=== PATIENT | male | born 1935 | race Caucasian/White ===

== ENCOUNTER 2016-08-30 16:46 | Observation (INO) | payer BC, MEDICARE ==
--- NOTE | 2016-08-30 18:24 | XR ---
EXAMINATION TYPE: XR Hip Complete LT DATE OF EXAM: 08/30/2016 COMPARISON: 11/05/2009 HISTORY: Fall one week ago and hip pain TECHNIQUE: 2 views FINDINGS: There is a left hip prosthesis. Components appear in anatomic position. There is extensive soft tissue ossification at the greater trochanter. There is vascular calcification. I see no fractur e. IMPRESSION: No fracture seen. Hip prosthesis is unchanged in position compared to old exam. There is increased soft tissue ossification.
[2016-08-30] MEDS ORDERED: ACETAMINOPHEN TAB 325 MG TAB PO PRN (18:41)
[2016-08-30] MEDS ORDERED: NALOXONE 0.4 MG/ML 1 ML VIAL IV PRN (18:41)
--- NOTE | 2016-08-30 18:41 | ED ---
General Adult HPI - General Chief complaint: Extremity Injury, Lower Stated complaint: No Movement in Left Leg Time Seen by Provider: 08/30/16 17:03 Source: patient Mode of arrival: wheelchair Limitations: no limitations - History of Present Illness Initial comments: This is an 81-year-old male with a history of left hip arthroplasty presents emergency department for left hip pain that has been progressively worsening over the last 3 weeks and worsening over the last 2 days. He states he has gotten to the point now where he cannot walk. He called his primary doctor who advised that he come to the emergency department because she is concerned that he will fall at home. Patient denies any injury. No falls. No fevers or chills. No weakness in the leg. He states it is just more painful. - Related Data Home Medications Medication Instructions Recorded Confirmed Albuterol Inhaler [Ventolin Hfa 2 puff INHALATION RT-BID PRN 08/30/16 08/30/16 Inhaler] Allopurinol [Zyloprim] 300 mg PO HS 08/30/16 08/30/16 Atenolol 25 mg PO BID 08/30/16 08/30/16 Atorvastatin [Lipitor] 40 mg PO HS 08/30/16 08/30/16 Budesonide/Formoterol Fumarate 2 puff INHALATION RT-BID 08/30/16 08/30/16 [Symbicort 160-4.5 Mcg Inhaler] Dipyridamole-Aspirin 200-25 mg 1 tab PO BID 08/30/16 08/30/16 [Aggrenox] Tamsulosin HCl [Flomax] 0.8 mg PO HS 08/30/16 08/30/16 amLODIPine [Norvasc] 5 mg PO DAILY 08/30/16 08/30/16 Allergies Allergy/AdvReac Type Severity Reaction Status Date / Time cephalexin [From Keflex] Allergy Rash/Hives Verified 08/30/16 17:19 ciprofloxacin [From Cipro] Allergy Rash/Hives Verified 08/30/16 17:19 Review of Systems ROS Statement: Those systems with pertinent positive or pertinent negative responses have been documented in the HPI. ROS Other: All systems not noted in ROS Statement are negative. Past Medical History Past Medical History: Chest Pain / Angina, Heart Failure, CVA/TIA, Hyperlipidemia, Hypertension, Myocardial Infarction ([place]), Osteoarthritis ([place]) Additional Past Medical History / Comment(s): kidney stones History of Any Multi-Drug Resistant Organisms: None Reported Past Surgical History: Coronary Bypass/CABG, Heart Catheterization With Stent, Tonsillectomy Additional Past Surgical History / Comment(s): left hip replacement, inguinal hernia repair Past Psychological History: No Psychological Hx Reported Smoking Status: Former smoker Past Alcohol Use History: Occasional Past Drug Use History: None Reported General Exam - General Exam Comments Initial Comments: Constitutional: Awake alert Appears comfortable Head: Normocephalic atraumatic Eyes: no conjunctival injection No scleral icterus EOMI Neck: No JVD Supple Heart: Regular rate rhythm normal S1-S2 no murmurs Lungs: Clear to auscultation bilaterally No wheezing No rales Abdomen: Soft nondistended nontender Extremities: Non edematous DP pulses intact Radial pulses intact, tenderness to palpation along the left inguinal region and in the groin. The patient has pain with any flexion of the left hip however appears strong with any other movements of the extremity. Neuro: A&Ox3 cranial nerves II through XII are grossly intact, 5 out of 5 strength in upper and lower extremities bilaterally, patient does have decreased ability to flex the left hip due to pain. Psych: Appropriate mood and affect Limitations: no limitations Course Vital Signs 08/30/16 17:01 Temperature 97.1 F L Pulse Rate 81 Respiratory 18 Rate Blood Pressure 138/70 O2 Sat by Pulse 96 Oximetry Medical Decision Making - Medical Decision Making This is an 81-year-old male presents emergency department for left hip pain. He was evaluated and found to have significant pain with hip flexion. He has not been able to ambulate and there is concern that he will fall at home. Dr. Foreman sent him in for admission. Dr. Briseno was RT aware of the patient and accepts him for observation. He would like Dr. Grant to see the patient. All questions were answered. Disposition Clinical Impression: Inability to ambulate due to hip Disposition: ADMITTED IP TO THIS HOSP Condition: Stable Referrals: Alyse Foreman MD [Primary Care Provider] - 1-2 days
[2016-08-30 18:46] LABS: Basophils % (A) 0 %; CH 33.9; CHCM 32.8; Eosinophils % (A) 1 %; HCT 46.5 % (39.0-53.0); HDW 2.49; HGB 14.9 gm/dL (13.0-17.5); Luc # (Auto) 0.04; Luc % (Auto) 1; Lymphocytes # (A) 0.8 k/uL (1.0-4.8); Lymphocytes % (A) 16 %; MCH 33.4 pg (25.0-35.0); MCHC 32.1 g/dL (31.0-37.0); Macrocytosis Slight; Mean Platelet Volume 8.2; Monocytes # (A) 0.2 k/uL (0-1.0); Monocytes % (A) 4 %; Neutrophils # (A) 4.2 k/uL (1.3-7.7); Neutrophils % (A) 79 %; RBC 4.47 m/uL (4.30-5.90); RDW 14.4 % (11.5-15.5); WBC 5.4 k/uL (3.8-10.6); WBC (Perox) 5.14
[2016-08-30 19:08] LABS: ALT 632 U/L (21-72); AST 453 U/L (17-59); Alkaline Phosphatase 198 U/L (38-126); Anion Gap 8 mmol/L; Blood Urea Nitrogen 19 mg/dL (9-20); Calcium 9.4 mg/dL (8.4-10.2); Carbon Dioxide 26 mmol/L (22-30); Chloride 106 mmol/L (98-107); Glucose 107 mg/dL (74-99); Non-African American GFR(MDRD) >60 (>60 ml/min/1.73 sqM); Potassium 4.3 mmol/L (3.5-5.1); Sodium 140 mmol/L (137-145); Total Bilirubin 1.9 mg/dL (0.2-1.3); Total Protein 6.9 g/dL (6.3-8.2)
[2016-08-30] MEDS ORDERED: MORPHINE SULFATE 4 MG/ML SYRINGE IVP STA (19:28)
--- NOTE | 2016-08-30 20:39 | US ---
EXAMINATION TYPE: US abdomen limited DATE OF EXAM: 08/30/2016 COMPARISON: Prior in PACS CLINICAL HISTORY: Elevated LFT. EXAM MEASUREMENTS: Liver Length: 17.3 cm Gallbladder Wall: 0.27 cm CBD: 0.4 cm Right Kidney: 11.6 x 5.5 x 4.1 cm Pancreas: Obscured by bowel gas Liver: Measuring upper limits of normal, heterogeneous Gallbladder: Multiple echogenic foci visualized, probable stones vs sludge Evidence for sonographic Kruger's sign: No CBD: wnl as visualized, distal portion obscured by bowel gas Right Kidney: Stone visualized in lower pole measuring 0.9 cm IMPRESSION: There are multiple gallstones. No dilated ducts.
[2016-08-30] MEDS: SYMBICORT 160-4.5 MCG INHALER INHALATION SCH (21:43)
[2016-08-30] MEDS ORDERED: ALBUTEROL NEBULIZED 2.5 MG/3 ML INHALATION PRN (21:46)
[2016-08-30] MEDS ORDERED: ALPRAZolam 0.25 MG TAB PO PRN (21:47)
[2016-08-30] MEDS ORDERED: HYDROmorphone 1 MG/ML 1 ML SYRINGE IVP PRN (21:47)
[2016-08-30 22:06] LABS: INR 1.2 (<1.1); Prothrombin Time 11.9 sec (9.0-12.0)
[2016-08-30 22:08] LABS: C Reactive Protein 63.9 mg/L (<10.0); Uric Acid 5.5 mg/dL (3.5-8.5)
[2016-08-30] MEDS: TAMSULOSIN 0.4 MG CAP.ER.24H PO SCH (23:22)
[2016-08-30] MEDS: ALLOPURINOL 300 MG TAB PO SCH (23:22)
[2016-08-30] MEDS: MELATONIN 3 MG TABLET PO SCH (23:22)
[2016-08-30] MEDS: ATORVASTATIN 40 MG TAB PO SCH (23:22)
[2016-08-30] MEDS: ATENOLOL 25 MG TAB PO SCH (23:22)
[2016-08-31] MEDS: HYDROcodone/APAP 5-325MG 1 EACH TAB PO PRN ×4 (05:20→23:18)
[2016-08-31 07:15] LABS: Basophils % (A) 1 %; CH 33.8; CHCM 32.6; Eosinophils # (A) 0.1 k/uL (0-0.7); Eosinophils % (A) 2 %; HCT 42.3 % (39.0-53.0); HDW 2.52; HGB 13.8 gm/dL (13.0-17.5); Luc # (Auto) 0.07; Luc % (Auto) 2; Lymphocytes # (A) 0.6 k/uL (1.0-4.8); Lymphocytes % (A) 19 %; MCHC 32.6 g/dL (31.0-37.0); MCV 104.3 fL (80.0-100.0); Macrocytosis Moderate; Mean Platelet Volume 8.2; Monocytes # (A) 0.2 k/uL (0-1.0); Monocytes % (A) 5 %; Neutrophils # (A) 2.5 k/uL (1.3-7.7); Neutrophils % (A) 72 %; RBC 4.06 m/uL (4.30-5.90); RDW 14.5 % (11.5-15.5); WBC 3.4 k/uL (3.8-10.6)
[2016-08-31 07:29] LABS: ALT 421 U/L (21-72); AST 197 U/L (17-59); Alkaline Phosphatase 173 U/L (38-126); Anion Gap 7 mmol/L; Blood Urea Nitrogen 17 mg/dL (9-20); Calcium 9.1 mg/dL (8.4-10.2); Carbon Dioxide 25 mmol/L (22-30); Chloride 107 mmol/L (98-107); Glucose 131 mg/dL (74-99); Non-African American GFR(MDRD) >60 (>60 ml/min/1.73 sqM); Sodium 139 mmol/L (137-145); Total Bilirubin 1.2 mg/dL (0.2-1.3)
--- NOTE | 2016-08-31 07:47 | HP ---
DATE OF ADMISSION: CHIEF COMPLAINT: Left hip pain. HISTORY OF PRESENT ILLNESS: This 81-year-old gentleman with a past medical history of CHF, history of CVA, TIA, hypertension, hyperlipidemia, myocardial infarction , DJD, history of prostate disorder, history of gout being followed by Dr. Foreman in the outpatient setting had hip replacement on the left side in [address] Grant. The patient is complaining of some pain for the last 3 weeks, which is felt on walking and moving the hip. Because of lack of improvement, the patient came to [facility] emergency room and was admitted for further evaluation and treatment. There is no history of any fever, rigors or chills. There is no headache, loss of consciousness or seizures. PAST MEDICAL HISTORY: History of CHF, history of CVA, TIA, hypertension, hyperlipidemia, myocardial infarction, prostate disorder. Medications prior to admission include the home medications are: 1. Flomax 0.8 q.h.s. 2. Lipitor 40 mg p.o. q.h.s. 3. Zyloprim 300 mg q.h.s. 4. Ventolin HFA 2 puffs b.i.d. p.r.n. 5. Norvasc 5 mg daily. 6. Symbicort 160/4.5 two puffs b.i.d. 7. Atenolol 25 mg b.i.d. 8. Aggrenox 1 tablet p.o. b.i.d. Allergies are CEPHALEXIN, CIPROFLOXACIN. FAMILY HISTORY: History of myocardial infarction in the family. SOCIAL HISTORY: History of occasional alcohol and previous history of smoking. REVIEW OF SYSTEMS: ENT: Diminishing hearing and diminished vision. CARDIOVASCULAR: No angina. RESPIRATORY: No cough or hemoptysis. GI: No nausea. : No dysuria. NERVOUS SYSTEM: No numbness or weakness. ALLERGY/IMMUNOLOGY: No history of asthma or hayfever. MUSCULOSKELETAL: As mentioned earlier. HEMATOLOGY/ONCOLOGY: No history of anemia. ENDOCRINE: No history of diabetes or hypothyroidism. CONSTITUTIONAL: As mentioned earlier. DERMATOLOGY: Negative. RHEUMATOLOGY: Negative. PSYCHIATRY: As mentioned earlier. PHYSICAL EXAMINATION: The patient is alert and oriented x3. Pulse is 96, blood pressure 159/91, respirations 20, temperature 98.2, pulse ox 92% on room air. HEENT: Conjunctivae normal. Oral mucosa moist. NECK: No jugular venous distention. No carotid bruit. No lymph node enlargement. CARDIOVASCULAR: S1 and S2, muffled. No S3, no S4. RESPIRATORY: Breath sounds diminished at the bases. A few scattered rhonchi, no crackles. ABDOMEN: Soft, nontender. No mass palpable. LEGS: No edema, no swelling. Movements of the left hip is painful. No swelling noted. Pulses felt normally. NERVOUS SYSTEM: Higher function as mentioned earlier. Moves all 4 limbs. No focal motor or sensory deficits. LYMPHATICS: No lymphadenopathy of neck, axillae or groin. EXAMINATION OF THE JOINTS: Diffuse arthritis and tophi formation also present. SKIN: As mentioned earlier. Lab investigations at this time shows WBC 5.4, MCV 104, platelets 129. Glucose 107. Total bilirubin is 1.9. AST is 453, ALT 632, alk phos 198. ASSESSMENT: 1. Severe left leg and hip pain as well as failure of outpatient treatment and gait dysfunction for evaluation. 2. Acute hepatitis of undetermined origin. 3. Increased bilirubin. 4. Increased AST, ALT. 5. Mild thrombocytopenia. 6. History of congestive heart failure, ejection fraction unknown. 7. History of cerebrovascular accident, transient ischemic attack. 8. Hypertension. 9. Hyperlipidemia. 10. History of myocardial infarction . 11. History of degenerative joint disease. 12. History of kidney stones. 13. History of gout. 14. History of coronary artery disease, coronary artery bypass grafting and stent. 15. History left hip replacement. 16. Remote history of nicotine dependence. 17. FULL CODE. RECOMMENDATIONS AND DISCUSSION: This 81-year-old gentleman who presented with the multiple complex medical issues, we will monitor the patient closely. Will initiate home medications and symptomatic treatment with pain and orthopedic evaluation. See orders for further details. Inflammatory markers. Prognosis guarded because of multiple complex medical issues. Further recommendations to follow. See orders for further details. Discussed with the patient as well as Dr. Foreman. Further recommendations to follow.
[2016-08-31] MEDS: amLODIPine 5 MG TAB PO SCH (07:52)
[2016-08-31] MEDS: HEPARIN SODIUM,PORCINE 5,000 UNIT/ML 1 ML VIAL SQ SCH ×2 (07:52→20:41)
[2016-08-31] MEDS: PANTOPRAZOLE 40 MG TABLET PO SCH (07:52)
[2016-08-31] MEDS: ATENOLOL 25 MG TAB PO SCH ×2 (07:52→20:41)
[2016-08-31] MEDS: DIPYRIDAMOLE-ASPIRIN 200-25 MG 1 EACH CPMP.12HR PO SCH ×2 (07:52→20:40)
[2016-08-31] MEDS: SYMBICORT 160-4.5 MCG INHALER INHALATION SCH ×2 (09:11→20:23)
--- NOTE | 2016-08-31 11:42 | P.CNOR ---
History of Present Illness - HPI Consult date: 08/31/16 History of present illness: This is a well-appearing 81-year-old male with a history of total left hip arthroplasty in 2012. Patient reports increased pain to the left hip over the last 2 months. Patient states his pain is mostly to the left groin area. Patient states he has fallen several times over the last month. Patient states he falls because his legs give out on him. Patient denies any dizziness or weakness. Patient states he uses a walker to ambulate at home. Patient states the pain has been increasingly worse over the last week but patient denies any falls over the last week. Patient denies any back pain, numbness/tingling/ weakness, or radicular pain to bilateral lower extremities. Patient denies any pain in the right hip. Patient denies any fever/chills, nausea/vomiting/ diarrhea. Review of Systems See HPI. Past Medical History Past Medical History: Chest Pain / Angina, Heart Failure, CVA/TIA, Hyperlipidemia, Hypertension, Myocardial Infarction ([place]), Osteoarthritis (OA), Prostate Disorder Additional Past Medical History / Comment(s): kidney stones, gout,tia 2005, mi 1987 and 1988, IN PAST TOOK MEDS FOR DM-NO LONGER TAKES MEDS OR CHECKS BS. Last Myocardial Infarction Date:: 1988 History of Any Multi-Drug Resistant Organisms: None Reported Past Surgical History: Coronary Bypass/CABG, Heart Catheterization With Stent, Tonsillectomy Additional Past Surgical History / Comment(s): left hip replacement 2009,lt inguinal hernia repair, cystocopy,turp,quad cabg 1995 had heart cath w/ stent after cabg,aaa reapir 2000, dianne cataracts, lt hand sx (revison of amp lt thumb) , kidney stones removed, vasectomy. Past Anesthesia/Blood Transfusion Reactions: No Reported Reaction Date of Last Stent Placement:: unk Past Psychological History: No Psychological Hx Reported Additional Psychological History / Comment(s): pt lives with his jose in a single story home that has 1 step to enter. pt sues a 4 wheeled seated walker to get around. no ptes in home. no home care services recieved. 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 Smoking Status: Former smoker Past Alcohol Use History: Occasional Additional Past Alcohol Use History / Comment(s): smoked for 40 years 2ppd, quit 1988 Past Drug Use History: None Reported - Past Family History Mother Family Medical History: Myocardial Infarction ([place]) Father Family Medical History: Myocardial Infarction ([place]) Medications and Allergies Home Medications Medication Instructions Recorded Confirmed Type Albuterol Inhaler [Ventolin Hfa 2 puff INHALATION RT-BID PRN 08/30/16 08/30/16 History Inhaler] Allopurinol [Zyloprim] 300 mg PO HS 08/30/16 08/30/16 History Atenolol 25 mg PO BID 08/30/16 08/30/16 History Atorvastatin [Lipitor] 40 mg PO HS 08/30/16 08/30/16 History Budesonide/Formoterol Fumarate 2 puff INHALATION RT-BID 08/30/16 08/30/16 History [Symbicort 160-4.5 Mcg Inhaler] Dipyridamole-Aspirin 200-25 mg 1 tab PO BID 08/30/16 08/30/16 History [Aggrenox] Tamsulosin HCl [Flomax] 0.8 mg PO HS 08/30/16 08/30/16 History amLODIPine [Norvasc] 5 mg PO DAILY 08/30/16 08/30/16 History Allergies Allergy/AdvReac Type Severity Reaction Status Date / Time cephalexin [From Keflex] Allergy Rash/Hives Verified 08/30/16 17:19 ciprofloxacin [From Cipro] Allergy Rash/Hives Verified 08/30/16 17:19 Physical Examination Patient is in no acute distress and is alert and oriented 3. Patient has tenderness to palpation of the left inguinal region. There is no ecchymosis, swelling, or erythema noted. There is no tenderness to the lateral aspect of the left hip. Patient has pain with flexion, internal and external rotation of the left hip. There is limited range of motion with internal and external rotation of the left hip. Patient has good active and passive flexion of the left hip. There is no pain with active or passive range of motion of the right hip. Patient's strength is 5/5 to bilateral lower extremities. Sensation intact. Neurovascular status is intact. Calf is soft and nontender. Patient has full foot and ankle motion. Results X-rays of the left hip were reviewed. No fracture appreciated. Prothesis intact and in place with no loosening appreciated. - Labs Labs: Abnormal Lab Results - Last 24 Hours (Table) 08/30/16 08/30/16 08/30/16 Range/Units 18:38 18:38 18:38 WBC (3.8-10.6) k/uL RBC (4.30-5.90) m/uL MCV 104.0 H (80.0-100.0) fL Plt Count 129 L (150-450) k/uL Lymphocytes # 0.8 L (1.0-4.8) k/uL Glucose 107 H (74-99) mg/dL Total Bilirubin 1.9 H (0.2-1.3) mg/dL AST 453 H (17-59) U/L ALT 632 H (21-72) U/L Alkaline Phosphatase 198 H (38-126) U/L C-Reactive Protein 63.9 H (<10.0) mg/L Total Protein (6.3-8.2) g/dL 08/31/16 08/31/16 Range/Units 06:57 06:57 WBC 3.4 L (3.8-10.6) k/uL RBC 4.06 L (4.30-5.90) m/uL MCV 104.3 H (80.0-100.0) fL Plt Count 90 L (150-450) k/uL Lymphocytes # 0.6 L (1.0-4.8) k/uL Glucose 131 H (74-99) mg/dL Total Bilirubin (0.2-1.3) mg/dL AST 197 H (17-59) U/L ALT 421 H (21-72) U/L Alkaline Phosphatase 173 H (38-126) U/L C-Reactive Protein (<10.0) mg/L Total Protein 6.0 L (6.3-8.2) g/dL H & H 08/30/16 08/31/16 Range/Units 18:38 06:57 Hgb 14.9 13.8 (13.0-17.5) gm/dL Hct 46.5 42.3 (39.0-53.0) % Coagulation 08/30/16 Range/Units 18:38 INR 1.2 (<1.1) Result Diagrams: 08/31/16 06:57 08/31/16 06:57 Assessment and Plan (1) Left hip pain Status: Acute (2) History of total left hip arthroplasty Status: Acute Plan: #1. Consult to physical therapy #2. Appreciate input from medicine #3. No surgical intervention planned at this time, will follow the patient closely
[2016-08-31 12:56] LABS: Hepatitis B Surface Ag Index 0.05
[2016-08-31 13:02] LABS: Hepatitis B Core IgM Index 0.01
[2016-08-31 13:13] LABS: Hepatitis C Virus IgG Ab Negative (Negative); Hepatitis C Virus IgG Index 0.02
[2016-08-31 14:13] LABS: Appearance,Urine Cloudy (Clear); Bacteria,Urine Occasional /hpf; Bilirubin,Urine Negative (Negative); Glucose,Urine (UA) Negative (Negative); Ketones,Urine Negative (Negative); Leukocyte Esterase,Urine Large (Negative); Mucus,Urine Occasional /hpf; Nitrite,Urine Negative (Negative); PH, Urine 5.5 (5.0-8.0); Particle Count 4487; Protein,Urine 1+ (Negative); RBC,Urine 31 /hpf (0-5); Specific Gravity,Urine 1.017 (1.001-1.035); Squamous Epithelial Cell,Urine 1 /hpf (0-4); UA Billing (MACRO vs. MICRO) MICRO; Urobilinogen,Urine <2.0 mg/dL (<2.0); WBC,Urine >182 /hpf (0-5)
[2016-08-31] MEDS: TAMSULOSIN 0.4 MG CAP.ER.24H PO SCH (20:40)
[2016-08-31] MEDS: MELATONIN 3 MG TABLET PO SCH (20:40)
[2016-08-31] MEDS: ALLOPURINOL 300 MG TAB PO SCH (20:41)
[2016-08-31] MEDS: ATORVASTATIN 40 MG TAB PO SCH (20:41)
[2016-08-31] MEDS: SULFAMETHOX-TMP 800-160MG 1 EACH TAB PO SCH (22:17)
[2016-09-01] MEDS: HYDROcodone/APAP 5-325MG 1 EACH TAB PO PRN (06:45)
[2016-09-01 07:31] LABS: Basophils % (A) 1 %; CH 33.8; CHCM 32.2; Eosinophils # (A) 0.2 k/uL (0-0.7); Eosinophils % (A) 5 %; HCT 43.2 % (39.0-53.0); HDW 2.56; HGB 13.7 gm/dL (13.0-17.5); Luc # (Auto) 0.12; Luc % (Auto) 4; Lymphocytes % (A) 28 %; MCH 33.6 pg (25.0-35.0); MCHC 31.8 g/dL (31.0-37.0); MCV 105.5 fL (80.0-100.0); Macrocytosis Moderate; Mean Platelet Volume 8.3; Monocytes # (A) 0.2 k/uL (0-1.0); Monocytes % (A) 6 %; Neutrophils # (A) 1.9 k/uL (1.3-7.7); Neutrophils % (A) 57 %; RBC 4.09 m/uL (4.30-5.90); RDW 14.3 % (11.5-15.5); WBC 3.4 k/uL (3.8-10.6); WBC (Perox) 3.35
[2016-09-01] MEDS: SYMBICORT 160-4.5 MCG INHALER INHALATION SCH (07:42)
[2016-09-01 07:44] LABS: ALT 279 U/L (21-72); AST 95 U/L (17-59); Alkaline Phosphatase 164 U/L (38-126); Anion Gap 7 mmol/L; Blood Urea Nitrogen 20 mg/dL (9-20); Calcium 9.1 mg/dL (8.4-10.2); Carbon Dioxide 28 mmol/L (22-30); Chloride 105 mmol/L (98-107); Glucose 112 mg/dL (74-99); Non-African American GFR(MDRD) >60 (>60 ml/min/1.73 sqM); Sodium 140 mmol/L (137-145); Total Bilirubin 0.9 mg/dL (0.2-1.3)
[2016-09-01 08:20] VITALS: BP 148/75; PULSE 66; RESP 18; TEMP 98.2
--- NOTE | 2016-09-01 09:37 | US ---
EXAMINATION TYPE: US abd limited kidneys/bladder DATE OF EXAM: 09/01/2016 COMPARISON: 08/30/2016 CLINICAL HISTORY: elevated enzymes . EXAM MEASUREMENTS: Liver Length: 22.6 cm Gallbladder Wall: 0.5 cm CBD: 0.6 cm Right Kidney: 11.5 x 6.0 x 6.4 cm Left Kidney: 13.2 x 5.7 x 6.6 cm Pancreas: Obscured by bowel gas Liver: mottled appearance to liver parenchyma Gallbladder: stones CBD: wnl Right Kidney: stone in mid/lower pole; Left Kidney: stone in upper pole The pancreas is not visualized. Liver is enlarged measuring over 23 2 cm. It is echogenic and likely fatty infiltrated. Gallstones are again demonstrated. The gallbladder wall measures 5 mm. This is thickened. The distal common hepatic duct measures 6 mm. This is normal in this age group. There is a 1.1 cm nonobstructing calculus in the lower pole of the right kidney. There is a nonobstru cting 1.4 cm calculus in the upper pole of the left kidney. IMPRESSION: 1. NEPHROLITHIASIS. 2. CHOLELITHIASIS. 3. HEPATOMEGALY AND FATTY INFILTRATION OF THE LIVER.
[2016-09-01] MEDS: PANTOPRAZOLE 40 MG TABLET PO SCH (09:44)
[2016-09-01] MEDS: DIPYRIDAMOLE-ASPIRIN 200-25 MG 1 EACH CPMP.12HR PO SCH (09:44)
[2016-09-01] MEDS: amLODIPine 5 MG TAB PO SCH (09:44)
[2016-09-01] MEDS: ATENOLOL 25 MG TAB PO SCH (09:44)
[2016-09-01] MEDS: SULFAMETHOX-TMP 800-160MG 1 EACH TAB PO SCH (09:45)
[2016-09-01] MEDS: HEPARIN SODIUM,PORCINE 5,000 UNIT/ML 1 ML VIAL SQ SCH (09:45)
--- NOTE | 2016-09-01 10:18 | PN ---
DATE OF SERVICE: 08/31/2016 This 81-year-old gentleman was admitted with severe hip pain is being closely monitored. Orthopedics evaluated the patient, x-rays have been done. No chest pain or palpitation. No fever. On exam, alert and oriented x3, the pulse is 69, blood pressure 116/75, respirations 18, temperature is 97.8, pulse ox is 94% on room air. HEENT: Conjunctivae normal. NECK: No jugular venous distension. CARDIOVASCULAR SYSTEM: S1, S2, muffled. RESPIRATORY: Breath sounds diminished at the bases, no rhonchi, no crackles. Abdomen is soft, nontender. Legs: Movement to the left tibia is mildly painful. NERVOUS SYSTEM: No focal deficits. LABS: WBC is 3.4, MCV 104.3, and AST is 197, ALT is 421, total protein is 6, CRP is 69. EKG is normal. UA is UTI. ASSESSMENT: 1. Severe left leg pain as well as failure of outpatient treatment with gait dysfunction for evaluation. 2. Acute urinary tract infection. 3. Acute hepatitis of undetermined etiology, possibly medication induced, improving. 4. Increased bilirubin. 5. Increased AST, ALT. 6. Mild thrombocytopenia. 7. History of congestive heart failure, ejection fraction unknown. 8. History of cerebrovascular accident, transient ischemic attack. 9. Hypertension, essential. 10. Hyperlipidemia. 11. History of myocardial infarction. 12. History of degenerative joint disease. 13. History of kidney stones. 14. History of gout. 15. History of coronary artery disease, coronary artery bypass grafting and stent. 16. History of left hip replacement. 17. Remote history of nicotine dependence. 18. FULL CODE. RECOMMENDATION: Recommend to continue current medications. Continue with symptomatic treatment. Otherwise, at this time I would recommend a course of antibiotics and repeat labs. Further recommendations to follow. See orders for details.
--- NOTE | 2016-09-01 10:21 | P.PN ---
Subjective Principal diagnosis: Left hip pain, history of total left hip arthroplasty This is a well-appearing 81-year-old male who was admitted for left hip pain. Patient has a history of total left hip arthroplasty in 2012. Patient states his pain has been under control while in the hospital. Patient states his pain and range of motion have somewhat improved but states this may be because of the pain medication. Patient states he has been up and walking with a walker with the assistance of physical therapy. Patient states he would like home physical therapy. Patient has no new complaints today. Objective - Vital Signs Vital signs: Vital Signs Temp 98.2 F 09/01/16 08:00 Pulse 66 09/01/16 08:00 Resp 18 09/01/16 08:00 BP 148/75 09/01/16 08:00 Pulse Ox 94 L 09/01/16 08:00 Intake & Output 08/31/16 09/01/16 09/01/16 18:59 06:59 18:59 Weight 113.398 kg Other: Voiding Method Urinal Urinal Diaper Diaper # Voids 2 2 - Exam Patient is in no acute distress and patient is alert and oriented 3. There is mild tenderness to palpation of the left inguinal area and anterior thigh. No erythema, swelling or ecchymosis of the skin. No tenderness to palpation of the lumbar spine. Patient has limited active range of motion due to pain. Passive range of motion is limited due to pain. There is pain with internal and external rotation. Patient has near full extension. Calf is soft and nontender. Patient has full foot and ankle motion. Neurovascular status is intact. - Labs CBC & Chem 7: 09/01/16 06:23 09/01/16 06:23 Labs: Abnormal Lab Results - Last 24 Hours (Table) 08/31/16 09/01/16 09/01/16 Range/Units 13:47 06:23 06:23 WBC 3.4 L (3.8-10.6) k/uL RBC 4.09 L (4.30-5.90) m/uL MCV 105.5 H (80.0-100.0) fL Plt Count 89 L (150-450) k/uL Glucose 112 H (74-99) mg/dL AST 95 H (17-59) U/L ALT 279 H (21-72) U/L Alkaline Phosphatase 164 H (38-126) U/L Total Protein 6.0 L (6.3-8.2) g/dL Urine Protein 1+ H (Negative) Urine Blood Small H (Negative) Ur Leukocyte Esterase Large H (Negative) Urine RBC 31 H (0-5) /hpf Urine WBC >182 H (0-5) /hpf Urine Bacteria Occasional H (None) /hpf Urine Mucus Occasional H (None) /hpf Assessment and Plan (1) Left hip pain Status: Acute (2) History of total left hip arthroplasty Status: Acute Plan: #1. Continue physical therapy #2. Appreciate input from medicine #3. Consult to case management to set up homecare physcial therapy #4. Patient can follow-up in one week with Dr. Favio Grant
--- NOTE | 2016-09-02 14:11 | DS ---
DATE OF ADMISSION: 08/30/2016 DATE OF DISCHARGE: 09/01/2016 DATE OF SERVICE: 09/01/2016 FINAL DIAGNOSES: 1. Severe left hip pain as well as failure of outpatient treatment with gait dysfunction and degenerative joint disease. 2. Acute urinary tract infection. 3. Acute hepatitis of undetermined etiology; possibly medication-induced. 4. Increased bilirubin. 5. Increased AST, ALT. 6. Mild thrombocytopenia. 7. History of congestive heart failure; ejection fraction unknown. 8. History of cerebrovascular accident, transient ischemic attack. 9. Hypertension, essential. 10. Hyperlipidemia. 11. History of myocardial infarction. 12. History of kidney stones. 13. History of gout. 14. History of coronary artery disease, coronary artery bypass grafting. 15. History of left hip replacement. 16. Remote history of nicotine dependence. 17. FULL CODE. DISCHARGE DISPOSITION: Patient will be discharged in stable condition with guarded prognosis. HISTORY OF PRESENT ILLNESS: This 81-year-old gentleman with a past medical history of multiple medical problems was admitted with left leg pain and left hip pain. The patient was treated symptomatically. Orthopedics saw the patient and recommended outpatient followup. On exam, vitals are stable. CARDIOVASCULAR SYSTEM: S1, S2 muffled. ABDOMEN: Soft. NERVOUS SYSTEM: No focal deficit. LFTs are slightly improved. Recommended to hold at this time. Outpatient followup is recommended. DISCHARGE ADVICE AND MEDICATIONS: 1. Diet is cardiac. 2. Activity limited until followup. 3. Follow up with Dr. Foreman in 2 to 3 days. 4. Follow up with Orthopedic Surgery as recommended. 5. Ventolin 2 puffs q.6 p.r.n. 6. Zyloprim 300 mg at bedtime. 7. Norvasc 5 mg p.o. daily. 8. Atenolol 25 mg p.o. b.i.d. 9. Hold Lipitor for now. 10. Symbicort 160/4.5 two puffs b.i.d. 11. Dipyridamole/aspirin 1 p.o. b.i.d. 12. Chana 5 mg q.6 p.r.n. 13. Melatonin 3 mg at bedtime. 14. Bactrim DS 1 p.o. b.i.d. for 5 days. 15. Flomax 0.8 at bedtime. Once again, the patient will be discharged in stable condition with guarded prognosis. MTDD
== END 2016-09-01 15:29 | disposition home health service (06) ==
LOC: EC 16:46 → 3OBS 18:41
PROVIDERS: ADMIT Hospitalist; ATTEND Hospitalist
DX: M25.552 Pain in left hip (principal); M19.90 Unspecified osteoarthritis, unspecified site; R26.9 Unspecified abnormalities of gait and mobility; Z79.899 Other long term (current) drug therapy; Z79.51 Long term (current) use of inhaled steroids; Z88.1 Allergy status to other antibiotic agents; Z88.2 Allergy status to sulfonamides; Z88.8 Allergy status to other drugs, medicaments and biological substances; Z86.73 Personal history of transient ischemic attack (TIA), and cerebral infarction without residual deficits; E78.5 Hyperlipidemia, unspecified; I11.0 Hypertensive heart disease with heart failure; I25.2 Old myocardial infarction; Z82.49 Family history of ischemic heart disease and other diseases of the circulatory system; I50.9 Heart failure, unspecified; Z95.1 Presence of aortocoronary bypass graft; Z87.891 Personal history of nicotine dependence; Z95.5 Presence of coronary angioplasty implant and graft; R79.89 Other specified abnormal findings of blood chemistry; Z96.642 Presence of left artificial hip joint; M10.9 Gout, unspecified; B17.9 Acute viral hepatitis, unspecified; D69.6 Thrombocytopenia, unspecified; Z87.442 Personal history of urinary calculi; Z91.81 History of falling; N39.0 Urinary tract infection, site not specified
CPT/HCPCS: 96372 ×2; 96375; 96374; 99284; 36415; 94640 ×3; 97116; 97162; 80053 ×3; 80074; 85652; 84550; 85025 ×3; 85610; 86140; 81001; 73502; 76705 ×2; 76770; G0378 ×3; J2270; J1644 ×2; J1170

== ENCOUNTER 2017-08-01 22:38 | Inpatient (IN) | payer BC, MEDICARE ==
[2017-08-01] MEDS ORDERED: SODIUM CHLORIDE 0.9% 1,000 ML IV STA ×2 (22:39)
[2017-08-01] MEDS ORDERED: IBUPROFEN 600 MG TAB PO STA (22:39)
[2017-08-01] MEDS ORDERED: ACETAMINOPHEN TAB 500 MG TAB PO STA (22:39)
[2017-08-01] MEDS ORDERED: IPRATROPIUM-ALBUTEROL 3 ML NEB INHALATION STA (22:42)
--- NOTE | 2017-08-01 22:44 | ED ---
General Adult HPI - General Stated complaint: High Temp Time Seen by Provider: 08/01/17 22:39 Source: RN notes reviewed, old records reviewed - History of Present Illness Initial comments: This is an 81-year-old male to the ER for not feeling well. Patient states he feels weak dizzy lightheaded, has increased cough and congestion throughout the day. Patient was seen by family doctor had x-rays earlier today, patient unsure result. Patient does have history of heart disease and heart failure. Patient has fever today with increased cough and congestion, increased shortness of breath. Denies chest pain - Related Data Home Medications Medication Instructions Recorded Confirmed Allopurinol [Zyloprim] 300 mg PO HS 08/30/16 08/01/17 Atenolol 25 mg PO BID 08/30/16 08/01/17 Budesonide/Formoterol Fumarate 2 puff INHALATION RT-BID 08/30/16 08/01/17 [Symbicort 160-4.5 Mcg Inhaler] Dipyridamole-Aspirin 200-25 mg 1 tab PO BID 08/30/16 08/01/17 [Aggrenox 25MG -200MG] Tamsulosin HCl [Flomax] 0.4 mg PO HS 08/30/16 08/01/17 amLODIPine [Norvasc] 5 mg PO HS 08/30/16 08/01/17 Allergies Allergy/AdvReac Type Severity Reaction Status Date / Time cephalexin [From Keflex] Allergy Rash/Hives Verified 08/01/17 23:06 ciprofloxacin [From Cipro] Allergy Rash/Hives Verified 08/01/17 23:06 Review of Systems ROS Statement: Those systems with pertinent positive or pertinent negative responses have been documented in the HPI. ROS Other: All systems not noted in ROS Statement are negative. Past Medical History Past Medical History: Chest Pain / Angina, Heart Failure, CVA/TIA, Hyperlipidemia, Hypertension, Myocardial Infarction ([place]), Osteoarthritis (OA), Prostate Disorder Additional Past Medical History / Comment(s): kidney stones, gout,tia 2005, mi 1987 and 1988, IN PAST TOOK MEDS FOR DM-NO LONGER TAKES MEDS OR CHECKS BS. Last Myocardial Infarction Date:: 1988 History of Any Multi-Drug Resistant Organisms: None Reported Past Surgical History: Coronary Bypass/CABG, Heart Catheterization With Stent, Tonsillectomy Additional Past Surgical History / Comment(s): left hip replacement 2009,lt inguinal hernia repair, cystocopy,turp,quad cabg 1995 had heart cath w/ stent after cabg,aaa reapir 2000, dianne cataracts, lt hand sx (revison of amp lt thumb) , kidney stones removed, vasectomy. Past Anesthesia/Blood Transfusion Reactions: No Reported Reaction Date of Last Stent Placement:: unk Past Psychological History: No Psychological Hx Reported Additional Psychological History / Comment(s): pt lives with his jose in a single story home that has 1 step to enter. pt sues a 4 wheeled seated walker to get around. no ptes in home. no home care services recieved. served in the [employer] when younger. 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 Smoking Status: Former smoker Past Alcohol Use History: Occasional Additional Past Alcohol Use History / Comment(s): smoked for 40 years 2ppd, quit 1988 Past Drug Use History: None Reported - Past Family History Mother Family Medical History: Myocardial Infarction ([place]) Father Family Medical History: Myocardial Infarction ([place]) General Exam General appearance: alert, anxious, in distress Head exam: Present: atraumatic, normocephalic, normal inspection Eye exam: Present: normal appearance, PERRL, EOMI. Absent: scleral icterus, conjunctival injection, periorbital swelling ENT exam: Present: normal exam, mucous membranes moist Neck exam: Present: normal inspection. Absent: tenderness, meningismus, lymphadenopathy Respiratory exam: Present: respiratory distress, wheezes, accessory muscle use, decreased breath sounds, prolonged expiratory. Absent: normal lung sounds bilaterally, rales, rhonchi, stridor Cardiovascular Exam: Present: normal rhythm, tachycardia, normal heart sounds. Absent: systolic murmur, diastolic murmur, rubs, gallop, clicks GI/Abdominal exam: Present: soft, normal bowel sounds. Absent: distended, tenderness, guarding, rebound, rigid Extremities exam: Present: normal inspection, full ROM, normal capillary refill. Absent: tenderness, pedal edema, joint swelling, calf tenderness Back exam: Present: normal inspection Neurological exam: Present: alert, oriented X3, CN II-XII intact Psychiatric exam: Present: normal affect, normal mood Skin exam: Present: warm, dry, intact, normal color. Absent: rash Course Vital Signs 08/01/17 08/01/17 08/01/17 22:42 23:01 23:19 Temperature 102.4 F H Pulse Rate 115 H 113 H 110 H Respiratory 20 22 Rate Blood Pressure 136/72 131/71 O2 Sat by Pulse 93 L 93 L Oximetry - Reevaluation(s) Reevaluation #1: 08/01/17 22:43 Medical record is reviewed Reevaluation #2: 08/01/17 22:43 Patient is improved with fever control, breathing treatment Medical Decision Making - Medical Decision Making 81 male the ER positive fever positive shortness breath cough congestion positive pneumonia left rib fracture patient be admitted for IV antibiotics breathing treatments and cardiopulmonary resuscitation - Lab Data Result diagrams: 08/01/17 22:55 08/01/17 22:55 Lab Results 08/01/17 08/01/17 08/01/17 Range/Units 22:55 22:55 22:55 WBC 9.9 (3.8-10.6) k/uL RBC 3.81 L (4.30-5.90) m/uL Hgb 12.7 L (13.0-17.5) gm/dL Hct 37.2 L (39.0-53.0) % MCV 97.7 (80.0-100.0) fL MCH 33.4 (25.0-35.0) pg MCHC 34.2 (31.0-37.0) g/dL RDW 14.0 (11.5-15.5) % Plt Count 182 (150-450) k/uL Neutrophils % 88 % Lymphocytes % 7 % Monocytes % 4 % Eosinophils % 1 % Basophils % 0 % Neutrophils # 8.7 H (1.3-7.7) k/uL Lymphocytes # 0.7 L (1.0-4.8) k/uL Monocytes # 0.4 (0-1.0) k/uL Eosinophils # 0.1 (0-0.7) k/uL Basophils # 0.0 (0-0.2) k/uL Sodium 143 (137-145) mmol/L Potassium 3.9 (3.5-5.1) mmol/L Chloride 108 H (98-107) mmol/L Carbon Dioxide 22 (22-30) mmol/L Anion Gap 13 mmol/L BUN 15 (9-20) mg/dL Creatinine 1.00 (0.66-1.25) mg/dL Est GFR (CKD-EPI)AfAm 81 (>60 ml/min/1.73 sqM) Est GFR (CKD-EPI)NonAf 70 (>60 ml/min/1.73 sqM) Glucose 155 H (74-99) mg/dL Plasma Lactic Acid Javad (0.7-2.0) mmol/L Calcium 9.0 (8.4-10.2) mg/dL Total Bilirubin 0.4 (0.2-1.3) mg/dL AST 47 (17-59) U/L ALT 63 (21-72) U/L Alkaline Phosphatase 244 H (38-126) U/L Total Protein 5.6 L (6.3-8.2) g/dL Albumin 3.3 L (3.5-5.0) g/dL Influenza Type A RNA Not Detected (Not Detectd) Influenza Type B (PCR) Not Detected (Not Detectd) 08/01/17 Range/Units 22:55 WBC (3.8-10.6) k/uL RBC (4.30-5.90) m/uL Hgb (13.0-17.5) gm/dL Hct (39.0-53.0) % MCV (80.0-100.0) fL MCH (25.0-35.0) pg MCHC (31.0-37.0) g/dL RDW (11.5-15.5) % Plt Count (150-450) k/uL Neutrophils % % Lymphocytes % % Monocytes % % Eosinophils % % Basophils % % Neutrophils # (1.3-7.7) k/uL Lymphocytes # (1.0-4.8) k/uL Monocytes # (0-1.0) k/uL Eosinophils # (0-0.7) k/uL Basophils # (0-0.2) k/uL Sodium (137-145) mmol/L Potassium (3.5-5.1) mmol/L Chloride (98-107) mmol/L Carbon Dioxide (22-30) mmol/L Anion Gap mmol/L BUN (9-20) mg/dL Creatinine (0.66-1.25) mg/dL Est GFR (CKD-EPI)AfAm (>60 ml/min/1.73 sqM) Est GFR (CKD-EPI)NonAf (>60 ml/min/1.73 sqM) Glucose (74-99) mg/dL Plasma Lactic Acid Javad 1.3 (0.7-2.0) mmol/L Calcium (8.4-10.2) mg/dL Total Bilirubin (0.2-1.3) mg/dL AST (17-59) U/L ALT (21-72) U/L Alkaline Phosphatase (38-126) U/L Total Protein (6.3-8.2) g/dL Albumin (3.5-5.0) g/dL Influenza Type A RNA (Not Detectd) Influenza Type B (PCR) (Not Detectd) - Radiology Data Radiology results: report reviewed (Outpatient x-rays reviewed, positive left- sided rib fracture) Disposition Clinical Impression: Community acquired pneumonia, Fever, Weakness, Left rib fracture Disposition: ADMITTED IP TO THIS [facility] Condition: Fair Is patient prescribed a controlled substance at d/c from ED?: No Referrals: Alyse Foreman MD [Primary Care Provider] - 1-2 days
[2017-08-01] MEDS ORDERED: PNEUMONIA PROTOCOL UTILIZED 1 EACH MISC PO PRN (23:08)
[2017-08-01] MEDS ORDERED: AZITHROMYCIN 500 MG in SODIUM CHLORIDE 0.9% 250 ML IVPB STA (23:08)
[2017-08-01 23:10] LABS: Basophils % (A) 0 %; Eosinophils # (A) 0.1 k/uL (0-0.7); Eosinophils % (A) 1 %; HCT 37.2 % (39.0-53.0); HGB 12.7 gm/dL (13.0-17.5); Lymphocytes # (A) 0.7 k/uL (1.0-4.8); Lymphocytes % (A) 7 %; MCH 33.4 pg (25.0-35.0); MCHC 34.2 g/dL (31.0-37.0); MCV 97.7 fL (80.0-100.0); Mean Platelet Volume 7.9; Monocytes # (A) 0.4 k/uL (0-1.0); Monocytes % (A) 4 %; Neutrophils # (A) 8.7 k/uL (1.3-7.7); Neutrophils % (A) 88 %; Platelet Count 182 k/uL (150-450); RBC 3.81 m/uL (4.30-5.90); WBC 9.9 k/uL (3.8-10.6)
[2017-08-01] MEDS ORDERED: AMPICILLIN-SULBACTAM 3 GM in SODIUM CHLORIDE 0.9% 100 ML IVPB STA (23:10)
[2017-08-01 23:21] LABS: Albumin 3.3 g/dL (3.5-5.0); Potassium 3.9 mmol/L (3.5-5.1); Total Bilirubin 0.4 mg/dL (0.2-1.3); Total Protein 5.6 g/dL (6.3-8.2)
[2017-08-02] MEDS ORDERED: ACETAMINOPHEN TAB 325 MG TAB PO PRN (01:09)
[2017-08-02] MEDS: SODIUM CHLORIDE 0.9% 1,000 ML IV SCH ×3 (02:16→18:27)
[2017-08-02] MEDS ORDERED: Magnesium Replacement Protocol 1 EACH MISC MISCELLANE PRN (04:28)
[2017-08-02 08:07] LABS: Basophils % (A) 0 %; Eosinophils % (A) 1 %; HCT 37.2 % (39.0-53.0); HGB 11.7 gm/dL (13.0-17.5); Hypochromasia Slight; Lymphocytes # (A) 1.3 k/uL (1.0-4.8); Lymphocytes % (A) 16 %; MCH 32.1 pg (25.0-35.0); MCHC 31.5 g/dL (31.0-37.0); MCV 101.8 fL (80.0-100.0); Macrocytosis Slight; Mean Platelet Volume 8.9; Monocytes # (A) 0.4 k/uL (0-1.0); Monocytes % (A) 4 %; Neutrophils # (A) 6.3 k/uL (1.3-7.7); Neutrophils % (A) 78 %; Platelet Count 157 k/uL (150-450); RBC 3.65 m/uL (4.30-5.90); RDW 13.9 % (11.5-15.5); WBC 8.1 k/uL (3.8-10.6)
[2017-08-02] MEDS: ENOXAPARIN 40 MG/0.4 ML SYRINGE SQ SCH (08:07)
[2017-08-02] MEDS: DIPYRIDAMOLE-ASPIRIN 200-25 MG 1 EACH CPMP.12HR PO SCH (08:07)
[2017-08-02] MEDS: AMPICILLIN-SULBACTAM 3 GM in SODIUM CHLORIDE 0.9% 100 ML IVPB SCH ×2 (08:07→12:06)
[2017-08-02 08:17] LABS: Anion Gap 11 mmol/L; Blood Urea Nitrogen 14 mg/dL (9-20); Calcium 8.5 mg/dL (8.4-10.2); Carbon Dioxide 24 mmol/L (22-30); Chloride 111 mmol/L (98-107); Glucose 124 mg/dL (74-99); Sodium 146 mmol/L (137-145)
[2017-08-02] MEDS ORDERED: ATENOLOL 25 MG TAB PO SCH (09:00)
[2017-08-02] MEDS: MAGNESIUM SULFATE-D5W PMX 1 GM in DEXTROSE/WATER 1 100ML.BAG IVPB SCH ×2 (09:14→10:25)
[2017-08-02] MEDS: SYMBICORT 160-4.5 MCG INHALER INHALATION SCH ×2 (09:17→21:23)
[2017-08-02] MEDS: IPRATROPIUM-ALBUTEROL 3 ML NEB INHALATION SCH ×4 (09:17→21:24)
--- NOTE | 2017-08-02 09:42 | XR ---
EXAMINATION TYPE: XR chest 1V DATE OF EXAM: 08/02/2017 COMPARISON: 08/01/2017 HISTORY: Pain TECHNIQUE: Single frontal view of the chest is obtained. FINDINGS: A rib deformity involving the left lower rib cage. No sizable pneumothorax. Cardiomegaly, postoperati ve change, atherosclerotic change aorta and hyperinflation suggestive of COPD. IMPRESSION: COPD with cardiomegaly.
--- NOTE | 2017-08-02 09:57 | ECHOF ---
Referral Reason:VTACH RUNS MEASUREMENTS -------- HEIGHT: 165.1 cm WEIGHT: 111.6 kg BP: 120/73 RVIDd: 3.7 cm (< 3.3) IVSd: 1.3 cm (0.6 - 1.1) LVIDd: 6.2 cm (3.9 - 5.3) LVPWd: 1.4 cm (0.6 - 1.1) IVSs: 1.6 cm LVIDs: 5.6 cm LVPWs: 1.5 cm LAESV Index (A-L): 21.69 ml/m Ao Diam: 3.1 cm (2.0 - 3.7) AV Cusp: 1.4 cm (1.5 - 2.6) LA Diam: 4.2 cm (2.7 - 3.8) MV EXCURSION: 11.800 mm (> 18.000) MV EF SLOPE: 52 mm/s (70 - 150) EPSS: 2.1 cm MV E Desmond: 1.12 m/s MV DecT: 155 ms MV A Desmond: 0.77 m/s MV E/A Ratio: 1.46 AV maxP.89 mmHg AV meanP.21 mmHg AR PHT: 364 ms RAP: 5.00 mmHg RVSP: 37.89 mmHg FINDINGS -------- Sinus rhythm with extra systolic beats. The patient has runs of a supraventricular tachycardia. This was a technically difficult study with suboptimal views. The left ventricle is mildly dilated. There is mild concentric left ventricular hypertrophy. Over all left ventricular systolic function is moderate-severely impaired with, an EF between 30 - 35 %. Basal lateral LV wall motion is hypokinetic. Basal inferior LV wall motion is hypokinetic. Bas al inferoseptal LV wall motion is hypokinetic. Mid lateral LV wall motion is hypokinetic. Mid i nferior LV wall motion is hypokinetic. Anterseptal Hypokinesis The right ventricle is mildly enlarged. The left atrium is mildly dilated. The right atrium is normal in size. Lumason used Aortic valve is trileaflet and is moderately thickened. Trace to mild aortic regurgitation. There is mild aortic stenosis present. Peak/mean gradient across the Aortic Valve is 23.89mmHg / 13.21mm Hg. The mitral valve leaflets are mildly thickened. Puxnaekh-ga-rzsghd mitral regurgitation is present. Mild tricuspid regurgitation present. There is borderline pulmonary hypertension. The right ventr icular systolic pressure, as measured by Doppler, is 37.89mmHg. Pulmonic valve appears structurally normal. The aortic root size is normal. The pericardium is normal. CONCLUSIONS -------- 1. Sinus rhythm with extra systolic beats. 2. The patient has runs of a supraventricular tachycardia. 3. This was a technically difficult study with suboptimal views. 4. The left ventricle is mildly dilated. 5. There is mild concentric left ventricular hypertrophy. 6. Overall left ventricular systolic function is moderate-severely impaired with, an EF between 30 - 35 %. 7. Basal lateral LV wall motion is hypokinetic. 8. Basal inferior LV wall motion is hypokinetic. 9. Basal inferoseptal LV wall motion is hypokinetic. 10. Mid lateral LV wall motion is hypokinetic. 11. Mid inferior LV wall motion is hypokinetic. 12. Anterseptal Hypokinesis 13. The right ventricle is mildly enlarged. 14. The left atrium is mildly dilated. 15. The right atrium is normal in size. 16. Lumason used 17. Aortic valve is trileaflet and is moderately thickened. 18. Trace to mild aortic regurgitation. 19. There is mild aortic stenosis present. 20. Peak/mean gradient across the Aortic Valve is 23.89mmHg / 13.21mmHg. 21. The mitral valve leaflets are mildly thickened. 22. Pnolncty-bm-wtdmuv mitral regurgitation is present. 23. Mild tricuspid regurgitation present. 24. There is borderline pulmonary hypertension. 25. The right ventricular systolic pressure, as measured by Doppler, is 37.89mmHg. 26. Pulmonic valve appears structurally normal. 27. The aortic root size is normal. 28. The pericardium is normal. SHANK PIECE TACKER: Yadira Kat RDCS
[2017-08-02] MEDS ORDERED: DEXTROSE 5% IN WATER 100 ML with AMIODARONE 150 MG IV ONE (10:40)
[2017-08-02] MEDS: AMIODARONE 450 MG in DEXTROSE 5% IN WATER 250 ML IV SCH ×4 (10:57→18:27)
--- NOTE | 2017-08-02 11:07 | P.CRDCN ---
History of Present Illness Consult date: 08/02/17 Requesting physician: Kris Briseno Consult reason: shortness of breath Chief complaint: Weakness, shortness of breath, cough History of present illness: This is a pleasant 81-year-old gentleman who follows regularly with Dr. Wiley in the office. He has a known history of coronary artery disease with prior bypass surgery in 1995, diabetes, hypertension, hyperlipidemia, he presents to the hospital mainly with symptoms of fatigue and weakness, he also states that he's been mildly short of breath, having occasional cough but very rare. He denies any fever or chills at home. He does state he had a fall approximately one week ago, but states he was in a small bathroom and fell because of not enough room to move, not because he passed out. He denies losing consciousness. He does have occasional episodes where he feels dizzy and lightheaded, however he is denying any of the cyst morning. Chest x-ray report shows COPD with cardiomegaly. The pressure on arrival here 136/70, heart rate in the 1 teens, 93% on room air. Temperature on arrival 102.4. He has been afebrile since then. Blood pressure this morning 130/70 with a heart rate in the 60s, 96%. White blood cell count 8.1, hemoglobin 11.7, platelet count 157. Sodium 146, potassium 4.0, BUN 14, creatinine 0.9. Mag level is 1.9. Alkaline phosphatase 244. BNP is 1860 influenza ANB negative. EKG on arrival here shows a normal sinus rhythm with inferior Q waves noted subsequent EKG shows a normal sinus rhythm with inferior Q waves, no acute changes noted. Patient is noted on the monitor to have frequent runs of nonsustained ventricular tachycardia. At the time of my examination, patient is sitting up at his bedside, denies any shortness of breath, stable. Echocardiogram with Doppler study that was performed here reveals an ejection fraction of 30-35%. Basal inferior, inferior septal, and lateral wall hypokinesia noted. Mid lateral and mid inferior wall is also hypokinetic. Past Medical History Past Medical History: Chest Pain / Angina, Heart Failure, CVA/TIA, Hyperlipidemia, Hypertension, Myocardial Infarction ([place]), Osteoarthritis (OA), Prostate Disorder Additional Past Medical History / Comment(s): kidney stones, gout,tia 2005, mi 1987 and 1988, IN PAST TOOK MEDS FOR DM-NO LONGER TAKES MEDS OR CHECKS BS. Last Myocardial Infarction Date:: 1988 History of Any Multi-Drug Resistant Organisms: None Reported Past Surgical History: Coronary Bypass/CABG, Heart Catheterization With Stent, Tonsillectomy Additional Past Surgical History / Comment(s): left hip replacement 2009,lt inguinal hernia repair, cystocopy,turp,quad cabg 1995 had heart cath w/ stent after cabg,aaa reapir 2000, dianne cataracts, lt hand sx (revison of amp lt thumb) , kidney stones removed, vasectomy. Past Anesthesia/Blood Transfusion Reactions: No Reported Reaction Date of Last Stent Placement:: unk Past Psychological History: No Psychological Hx Reported Additional Psychological History / Comment(s): pt lives with his jose in a single story home that has 1 step to enter. pt uses a 4 wheeled seated walker to get around. no steps in home. no home care services recieved. served in the [employer] when younger. 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 Smoking Status: Former smoker Past Alcohol Use History: Occasional Additional Past Alcohol Use History / Comment(s): smoked for 40 years 2ppd, quit 1977 Past Drug Use History: None Reported - Past Family History Mother Family Medical History: Myocardial Infarction ([place]) Father Family Medical History: Myocardial Infarction ([place]) Medications and Allergies Home Medications Medication Instructions Recorded Confirmed Type Allopurinol [Zyloprim] 300 mg PO HS 08/30/16 08/01/17 History Atenolol 25 mg PO BID 08/30/16 08/01/17 History Budesonide/Formoterol Fumarate 2 puff INHALATION RT-BID 08/30/16 08/01/17 History [Symbicort 160-4.5 Mcg Inhaler] Dipyridamole-Aspirin 200-25 mg 1 tab PO BID 08/30/16 08/01/17 History [Aggrenox 25MG -200MG] Tamsulosin HCl [Flomax] 0.4 mg PO HS 08/30/16 08/01/17 History amLODIPine [Norvasc] 5 mg PO HS 08/30/16 08/01/17 History Allergies Allergy/AdvReac Type Severity Reaction Status Date / Time cephalexin [From Keflex] Allergy Rash/Hives Verified 08/01/17 23:06 ciprofloxacin [From Cipro] Allergy Rash/Hives Verified 08/01/17 23:06 Physical Exam Vitals: Vital Signs Temp Pulse Pulse Pulse Pulse Resp BP 08/02/17 09:30 64 08/02/17 09:18 66 18 08/02/17 06:00 96.8 F L 69 20 08/02/17 04:52 97.7 F 69 18 08/02/17 04:41 97.6 F 70 18 08/02/17 04:09 97.6 F 71 18 08/02/17 02:05 18 08/02/17 00:38 99.1 F 96 18 08/02/17 00:08 99.5 F 98 20 135/73 08/01/17 23:19 110 H 22 131/71 08/01/17 23:01 113 H 08/01/17 22:42 102.4 F H 115 H 20 136/72 BP Pulse Ox 08/02/17 09:30 08/02/17 09:18 08/02/17 06:00 130/76 96 08/02/17 04:52 120/73 95 08/02/17 04:41 119/74 96 08/02/17 04:09 115/47 95 08/02/17 02:05 08/02/17 00:38 128/81 98 08/02/17 00:08 96 08/01/17 23:19 93 L 08/01/17 23:01 08/01/17 22:42 93 L Intake and Output 08/01/17 08/02/17 08/02/17 22:59 06:59 14:59 Intake Total 580 Output Total 470 Balance 110 Intake: Intake, IV Titration 350 Amount Ampicillin-Sulbactam 3 gm 100 In Sodium Chloride 0.9% 100 ml @ 100 mls/hr IVPB ONCE STA Rx#:[id number] Azithromycin 500 mg In 250 Sodium Chloride 0.9% 250 ml @ 125 mls/hr IVPB ONCE STA Rx#:[id number] Oral 200 Tube Feeding 30 Output: Urine 470 Other: Voiding Method Urinal # Voids 1 Weight 111.584 kg 111.584 kg PHYSICAL EXAMINATION: HEENT: Head is atraumatic, normocephalic. Pupils equal, round. Neck is supple. There is no elevated jugular venous pressure. HEART EXAMINATION: Heart S1, S2 normal. No murmur or gallop heard. CHEST EXAMINATION: Lungs are clear to auscultation and precussion. No chest wall tenderness is noted on palpation or with deep breathing. ABDOMEN: Soft, nontender. Bowel sounds are heard. No organomegaly noted. EXTREMITIES: 2+ peripheral pulses with trace evidence of peripheral edema and no calf tenderness noted. NEUROLOGIC patient is awake, alert and oriented -3. . Results 08/02/17 04:31 08/02/17 04:31 Cardiac Enzymes 08/01/17 Range/Units 22:55 AST 47 (17-59) U/L CBC 08/01/17 08/02/17 Range/Units 22:55 04:31 WBC 9.9 8.1 (3.8-10.6) k/uL RBC 3.81 L 3.65 L (4.30-5.90) m/uL Hgb 12.7 L 11.7 L (13.0-17.5) gm/dL Hct 37.2 L 37.2 L (39.0-53.0) % Plt Count 182 157 (150-450) k/uL Comprehensive Metabolic Panel 08/01/17 08/02/17 Range/Units 22:55 04:31 Sodium 143 146 H (137-145) mmol/L Potassium 3.9 4.0 (3.5-5.1) mmol/L Chloride 108 H 111 H (98-107) mmol/L Carbon Dioxide 22 24 (22-30) mmol/L BUN 15 14 (9-20) mg/dL Creatinine 1.00 0.91 (0.66-1.25) mg/dL Glucose 155 H 124 H (74-99) mg/dL Calcium 9.0 8.5 (8.4-10.2) mg/dL AST 47 (17-59) U/L ALT 63 (21-72) U/L Alkaline Phosphatase 244 H (38-126) U/L Total Protein 5.6 L (6.3-8.2) g/dL Albumin 3.3 L (3.5-5.0) g/dL Current Medications Generic Name Dose Route Start Last Admin Trade Name Freq PRN Reason Stop Dose Admin Acetaminophen 650 mg 08/02/17 01:09 Tylenol Tab PO Q6HR PRN Fever and/ or Pain Albuterol/Ipratropium 3 ml 08/02/17 08:00 08/02/17 09:17 Duoneb 0.5 Mg-3 Mg/3 Ml Soln INHALATION 3 ml RT-QID BRENNA Administration Allopurinol 300 mg 08/02/17 21:00 Zyloprim PO HS BRENNA Amlodipine Besylate 5 mg 08/02/17 21:00 Norvasc PO HS BRENNA Atenolol 25 mg 08/02/17 09:00 08/02/17 08:08 Tenormin PO 25 mg BID BRENNA Administration Budesonide/Formoterol Fumarate 2 puff 08/02/17 08:00 08/02/17 09:17 Symbicort 160-4.5 Mcg Inhaler INHALATION 2 puff RT-BID BRENNA Administration Dipyridamole/Aspirin 1 each 08/02/17 09:00 08/02/17 08:07 Aggrenox PO 1 each BID BRENNA Administration Enoxaparin Sodium 40 mg 08/02/17 09:00 08/02/17 08:07 Lovenox SQ 40 mg DAILY BRENNA Administration Azithromycin 500 mg/ Sodium 250 mls @ 125 mls/hr 08/02/17 21:00 Chloride IVPB HS BRENNA Sodium Chloride 1,000 mls @ 100 mls/hr 08/01/17 23:15 08/02/17 10:25 Saline 0.9% IV 100 mls/hr .Q10H BRENNA Administration Ampicillin Sodium/Sulbactam 100 mls @ 100 mls/hr 08/02/17 06:00 08/02/17 08: 07 Sodium 3 gm/ Sodium Chloride IVPB 100 mls/hr Q6HR BRENNA Administration Magnesium Sulfate/Dextrose 1 100 mls @ 100 mls/hr 08/02/17 09:00 08/02/17 10: 25 gm/ IV Solution IVPB 08/02/17 10:59 100 mls/hr Q1H BRENNA Administration Amiodarone HCl 150 mg/ 103 mls @ 618 mls/hr 08/02/17 10:40 Dextrose/Water IV 08/02/17 10:49 .Q10M ONE Amiodarone HCl 450 mg/ 250 mls @ 33.33 mls/hr 08/02/17 10:45 Dextrose/Water IV 08/03/17 10:40 .Q7H31M BRENNA Protocol 1 MG/MIN Miscellaneous Information 1 each 08/01/17 23:08 Pneumonia Protocol Utilized PO ONCE PRN Per Protocol Miscellaneous Information 1 each 08/02/17 04:28 Magnesium Per Protocol MISCELLANE DAILY PRN Per Protocol Protocol Tamsulosin HCl 0.4 mg 08/02/17 21:00 Flomax PO HS BRENNA Intake and Output 08/01/17 08/02/17 08/02/17 22:59 06:59 14:59 Intake Total 580 Output Total 470 Balance 110 Intake: Intake, IV Titration 350 Amount Ampicillin-Sulbactam 3 gm 100 In Sodium Chloride 0.9% 100 ml @ 100 mls/hr IVPB ONCE STA Rx#:[id number] Azithromycin 500 mg In 250 Sodium Chloride 0.9% 250 ml @ 125 mls/hr IVPB ONCE STA Rx#:[id number] Oral 200 Tube Feeding 30 Output: Urine 470 Other: Voiding Method Urinal # Voids 1 Weight 111.584 kg 111.584 kg 08/02/17 04:31 08/02/17 04:31 EKG Interpretations (text) EKG shows a normal sinus rhythm with inferior Q waves and mild lateral ST depression Assessment and Plan Plan: Assessment and plan #1 symptoms of progressive weakness and fatigue, with associated mild shortness of breath. Chest x-ray shows COPD with cardiomegaly. BNP [id number]. #2 frequent runs of nonsustained ventricular tachycardia, potassium 4.0, magnesium level I.9. #3 known history of coronary artery disease with prior bypass surgery in 1995 #4 hypertension #5 hyperlipidemia #6 diabetes #7 prior history of smoking #8 history of AAA repair #9 febrile illness Plan Echocardiogram with Doppler study was performed which revealed an ejection fraction of 30-35%. Inferior lateral hypokinesia. Patient just recently had a stress test performed in the office which showed a fixed defect involving the inferior wall, ejection fraction 35-40%. Patient is having long runs of nonsustained monomorphic ventricular tachycardia, we will start him on IV amiodarone bolus and drip per protocol. We will also replace the patient's magnesium. Discontinue atenolol and Norvasc, start the patient on Coreg, Cozaar , Aldactone. Workup for febrile illness. Obtain pro calcitonin level to confirm whether or not the patient has pneumonia. Patient may need to undergo cardiac catheterization, and subsequently he may also require implantation of an AICD. Further recommendations to follow. DNP note has been reviewed, I agree with a documented findings and plan of care. Patient was seen and examined.
[2017-08-02] MEDS ORDERED: LOSARTAN 25 MG TAB PO SCH (11:15)
--- NOTE | 2017-08-02 12:03 | P.CNPUL ---
History of Present Illness Consult date: 08/02/17 Reason for consult: dyspnea, cough, pneumonia Chief complaint: Shortness of breath with intermittent cough for over 2 weeks History of present illness: D1-year-old male with history of ischemic cardiomyopathy ejection fraction of 30 -35% has not been feeling well for the last 2-3 week with increasing shortness of breath patient does have a history of chronic lower extremity edema with a history of coronary artery disease status post CABG back in 1995. Patient for the last 2 weeks has not been feeling well has been more short of breath than usual has dry nonproductive cough as well which is intermittent off and on due to progressive increasing shortness of breath lately has been feeling weak as well with some intermittent episodes of dizziness lightheadedness patient came into the emergency department he did spike a fever up to 102, over his white cell count were normal chest x-ray showed borderline cardiomegaly and some early infiltrate in the right midlung field cannot be excluded. Patient about 2 weeks ago had a recent fall however he never lost his consciousness no seizure -like activity was seen patient appears to have developed nondisplaced left 10th rib fracture as seen on the rib x-rays. On arrival patient appeared to be in acute exacerbation of CHF likely acute on chronic systolic heart failure with elevated BNP of over 1800, in addition to above patient had echocardiogram which revealed ejection fraction 30% with inferior basal hypokinesia, patient also noted to have intermittent runs of PVCs and has been placed on IV amiodarone, this requestioning patient denies any chest pain or radiation of pain denies any sputum production denies any night sweats fever or chills he denies any seizure-like activity he did have intermittent dizziness usually turning around. He denies any bowel or bladder dysfunction he has chronic lower extremity trace edema. Review of Systems All systems: negative Past Medical History Past Medical History: Chest Pain / Angina, Heart Failure, CVA/TIA, Hyperlipidemia, Hypertension, Myocardial Infarction ([place]), Osteoarthritis (OA), Prostate Disorder Additional Past Medical History / Comment(s): kidney stones, gout,tia 2005, mi 1987 and 1988, IN PAST TOOK MEDS FOR DM-NO LONGER TAKES MEDS OR CHECKS BS. Last Myocardial Infarction Date:: 1988 History of Any Multi-Drug Resistant Organisms: None Reported Past Surgical History: Coronary Bypass/CABG, Heart Catheterization With Stent, Tonsillectomy Additional Past Surgical History / Comment(s): left hip replacement 2009,lt inguinal hernia repair, cystocopy,turp,quad cabg 1995 had heart cath w/ stent after cabg,aaa reapir 2000, dianne cataracts, lt hand sx (revison of amp lt thumb) , kidney stones removed, vasectomy. Past Anesthesia/Blood Transfusion Reactions: No Reported Reaction Date of Last Stent Placement:: unk Past Psychological History: No Psychological Hx Reported Additional Psychological History / Comment(s): pt lives with his jose in a single story home that has 1 step to enter. pt uses a 4 wheeled seated walker to get around. no steps in home. no home care services recieved. served in the [employer] when younger. 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 Smoking Status: Former smoker Past Alcohol Use History: Occasional Additional Past Alcohol Use History / Comment(s): smoked for 40 years 2ppd, quit 1977 Past Drug Use History: None Reported - Past Family History Mother Family Medical History: Myocardial Infarction ([place]) Father Family Medical History: Myocardial Infarction ([place]) Medications and Allergies Home Medications Medication Instructions Recorded Confirmed Type Allopurinol [Zyloprim] 300 mg PO HS 08/30/16 08/01/17 History Atenolol 25 mg PO BID 08/30/16 08/01/17 History Budesonide/Formoterol Fumarate 2 puff INHALATION RT-BID 08/30/16 08/01/17 History [Symbicort 160-4.5 Mcg Inhaler] Dipyridamole-Aspirin 200-25 mg 1 tab PO BID 08/30/16 08/01/17 History [Aggrenox 25MG -200MG] Tamsulosin HCl [Flomax] 0.4 mg PO HS 08/30/16 08/01/17 History amLODIPine [Norvasc] 5 mg PO HS 08/30/16 08/01/17 History Allergies Allergy/AdvReac Type Severity Reaction Status Date / Time cephalexin [From Keflex] Allergy Rash/Hives Verified 08/01/17 23:06 ciprofloxacin [From Cipro] Allergy Rash/Hives Verified 08/01/17 23:06 Physical Exam Vitals: Vital Signs Temp Pulse Pulse Pulse Pulse Resp BP 08/02/17 09:30 64 08/02/17 09:18 66 18 08/02/17 06:00 96.8 F L 69 20 08/02/17 04:52 97.7 F 69 18 08/02/17 04:41 97.6 F 70 18 08/02/17 04:09 97.6 F 71 18 08/02/17 02:05 18 08/02/17 00:38 99.1 F 96 18 08/02/17 00:08 99.5 F 98 20 135/73 08/01/17 23:19 110 H 22 131/71 08/01/17 23:01 113 H 08/01/17 22:42 102.4 F H 115 H 20 136/72 BP Pulse Ox 08/02/17 09:30 08/02/17 09:18 08/02/17 06:00 130/76 96 08/02/17 04:52 120/73 95 08/02/17 04:41 119/74 96 08/02/17 04:09 115/47 95 08/02/17 02:05 08/02/17 00:38 128/81 98 08/02/17 00:08 96 08/01/17 23:19 93 L 08/01/17 23:01 08/01/17 22:42 93 L Intake and Output 08/01/17 08/02/17 08/02/17 22:59 06:59 14:59 Intake Total 580 360 Output Total 470 Balance 110 360 Intake: Intake, IV Titration 350 Amount Ampicillin-Sulbactam 3 gm 100 In Sodium Chloride 0.9% 100 ml @ 100 mls/hr IVPB ONCE STA Rx#:[id number] Azithromycin 500 mg In 250 Sodium Chloride 0.9% 250 ml @ 125 mls/hr IVPB ONCE STA Rx#:[id number] Oral 200 360 Tube Feeding 30 Output: Urine 470 Other: Voiding Method Urinal # Voids 1 Weight 111.584 kg 111.584 kg - Constitutional General appearance: average body habitus, cooperative, disheveled, mild distress , no acute distress - EENT Eyes: EOMI, PERRLA, normal appearance ENT: hard of hearing Ears: bilateral: normal - Neck Neck: normal ROM Carotids: right: bruit absent, bilateral: upstroke normal Thyroid: bilateral: normal size - Respiratory Respiratory: bilateral: CTA - Cardiovascular Heart sounds: normal: S1 - Gastrointestinal General gastrointestinal: normal bowel sounds, soft - Integumentary Integumentary: normal, normal turgor - Neurologic Normal neuro exam Neurologic: CNII-XII intact - Musculoskeletal Musculoskeletal: gait normal, generalized weakness, strength equal bilaterally - Psychiatric Psychiatric: A&O x's 3, appropriate affect, intact judgment & insight Results - Laboratory Findings CBC and BMP: 08/02/17 04:31 08/02/17 04:31 Abnormal lab findings: Abnormal Labs 08/01/17 08/01/17 08/02/17 22:55 22:55 04:31 RBC 3.81 L 3.65 L Hgb 12.7 L 11.7 L Hct 37.2 L 37.2 L MCV 101.8 H Neutrophils # 8.7 H Lymphocytes # 0.7 L Sodium Chloride 108 H Glucose 155 H Alkaline Phosphatase 244 H Total Protein 5.6 L Albumin 3.3 L 08/02/17 04:31 RBC Hgb Hct MCV Neutrophils # Lymphocytes # Sodium 146 H Chloride 111 H Glucose 124 H Alkaline Phosphatase Total Protein Albumin - Diagnostic Findings Chest x-ray: report reviewed, image reviewed (Chest x-ray suggestive borderline cardiomegaly interstitial edema patchy early right-sided midlung field infiltrate cannot be excluded no significant pleural effusion is seen, influenza A and B both negative urine and blood culture results are pending) Assessment and Plan Assessment: Early developing pneumonia in right midlung field cannot be excluded agree with Unasyn however Zithromax can be discontinued Spiking fever may be related to above however will follow up on urine culture results and report Acute exacerbation of CHF likely acute on chronic systolic heart failure with ejection fraction of 30-35% Status post fall with left 10th rib fracture Coronary artery disease and ischemic cardiomyopathy Intermittent episodes of PVCs and arrhythmia, patient is on amiodarone currently History of BPH Dyslipidemia hypertension hypertensive cardiovascular disease Plan: Gentle diuresis Broad-spectrum antibiotics Breathing treatment Increase activity as tolerated Follow-up on urine and blood culture results and report Can discontinue Zithromax Optimize cardiovascular therapy Deep breathing exercises incentive spirometry Repeat chest x-ray tomorrow Time with Patient: Greater than 30
[2017-08-02] MEDS: SPIRONOLACTONE 25 MG TAB PO SCH (12:06)
[2017-08-02] MEDS: CARVEDILOL 3.125 MG TAB PO SCH ×2 (12:06→15:46)
[2017-08-02] MEDS: IOPAMIDOL-300 CONTRAST 30 ML VIAL (ORAL USE) PO PRN ×2 (15:45→16:55)
[2017-08-02] MEDS: PIPERACILLIN-TAZOBACTAM 3.375 GM in DEXTROSE/WATER 1 50ML.BAG IVPB SCH (18:26)
[2017-08-02] MEDS: FUROSEMIDE 10 MG/ML 4 ML VIAL ONE ×2 (20:15→20:17)
[2017-08-02 20:18] LABS: Glucose,Whole Blood 120 mg/dL (75-99)
--- NOTE | 2017-08-02 20:32 | HP ---
HISTORY AND PHYSICAL DATE OF SERVICE: 08/02/2017 CHIEF COMPLAINT: Fever, feeling shaky and cough and sputum. HISTORY OF PRESENT ILLNESS: This 81-year-old gentleman with a past history of multiple medical problems including chest pain, CVA, TIA, hypertension, hypertension, myocardial infarction, history of CAD, CABG stent being followed by Dr. Foreman in the outpatient setting, was not feeling well over the past several days. Patient had fever. The patient felt dizzy. Patient had cough and congestion. The pneumonia suspected and patient admitted for further evaluation and treatment. A chest x-ray done on admission showed only COPD and cardiomegaly. The patient has been evaluated by pulmonary, Dr. Wright and recommended possibly early developing pneumonia in the right mid lung and IV antibiotics are recommend at this time. Cardiology has also seen the patient for shortness of breath. The patient had nonsustained ventricular tachycardia as well. Magnesium was 1.9. The patient was admitted for evaluation and treatment. A 2D echo with Doppler was also done on admission, which showed an ejection fraction of 30-35% indicating some cardiomyopathy as well. There is no history any headache, loss of consciousness, seizures. PAST MEDICAL HISTORY: History of CHF, history of diabetes, history of hypertension, hyperlipidemia, history of myocardial infarction, history of kidney stones, history of CAD, CABG, stent. MEDICATIONS: Home medications are: 1. Flomax 0.4 q.h.s. 2. Norvasc 5 mg q.h.s. 3. Migrainous 25/200 p.o. b.i.d. 4. Symbicort 0.2 pulse b.i.d. 5. Atenolol 25 mg p.o. b.i.d. 6. Zyloprim 300 mg q.h.s. ALLERGIES: KEFLEX AND CIPRO. FAMILY HISTORY: History of myocardial infarction in the family. SOCIAL HISTORY: Occasional history of alcohol intake. Previous history of smoking. REVIEW OF SYSTEMS: ENT: Diminished hearing. No diminished vision. CARDIOVASCULAR: As mentioned. RESPIRATORY: As mentioned earlier. GI: No nausea or vomiting. : No dysuria. NERVOUS SYSTEM: No numbness, weakness. ALLERGY/IMMUNOLOGY: No asthma. MUSCULOSKELETAL: As mentioned. HEMATOLOGY: No history of anemia. ENDOCRINE: No history of diabetes or hypothyroidism. CONSTITUTIONAL: As mentioned earlier. DERMATOLOGY: Negative. RHEUMATOLOGY: Negative. PSYCHIATRY: As mentioned earlier. PHYSICAL EXAMINATION: Alert and oriented x3. Pulse 69, blood pressure 127/70, respiration 18, temperature 97.6, pulse ox 93% on 2 L. HEENT: Conjunctivae normal. Oral mucosa moist. NECK: No jugular venous distention. No carotid bruit. No lymph node enlargement. CARDIOVASCULAR: S1, S2 muffled. No S3, no S4. RESPIRATORY: Breath sounds diminished in the bases. A few scattered rhonchi and crackles. ABDOMEN: Soft, nontender. No mass palpable. LEGS: No edema. No swelling. NERVOUS SYSTEM: Higher functions as mentioned earlier, moves all 4 limbs. No focal motor deficits. LYMPHATICS: No lymphadenopathy in the neck, axillae, groin. SKIN: No ulcer, rash or bleeding. LABS: WBC 8.1, hemoglobin 11.6, sodium 146, and glucose 124. Influenza is negative. ASSESSMENT: 1. Possible right middle lobe pneumonia with possible sepsis with gram-negative bacilli. 2. Anemia of chronic disease. 3. History of congestive heart failure with chronic systolic, ejection fraction 35-40% with possible cardiomyopathy. 4. History of cerebrovascular accident, transient ischemic attack. 5. Hypertension. 6. Hyperlipidemia. 7. History of myocardial infarction. 8. History of gout. 9. History of nephrolithiasis. 10.History of coronary artery disease, CABG, stent. RECOMMENDATION AND DISCUSSION: In this 81-year-old gentleman who presented with multiple complex medical issues, will monitor the patient closely. Continue the current management and symptomatic treatment. Otherwise at this time I recommend broad-spectrum IV antibiotics. Blood and urine cultures. Infectious Disease and Pulmonary evaluation. Otherwise DVT prophylaxis, broad- spectrum IV antibiotics to be continued. Symptomatic treatment. The prognosis guarded because of multiple complex medical issues. Further recommendations to follow. MMODL / IJN: [id number] /
[2017-08-02] MEDS ORDERED: FUROSEMIDE 10 MG/ML 4 ML VIAL ONE (20:34)
[2017-08-02] MEDS ORDERED: FUROSEMIDE 10 MG/ML 4 ML VIAL IV STA (20:35)
--- NOTE | 2017-08-02 20:38 | XR ---
EXAMINATION TYPE: XR chest 1V portable DATE OF EXAM: 08/02/2017 CLINICAL HISTORY: Difficulty breathing progress study. TECHNIQUE: Single AP portable upright view of the chest is obtained. COMPARISON: Chest x-ray from one day earlier and older studies FINDINGS: Sternal wires are redemonstrated. There is persistent cardiomegaly with atherosclerotic an d ectatic thoracic aorta. There is chronic emphysematous change with increasing interstitial prominen ce and developing right basilar opacity. No large pleural effusion or pneumothorax is seen bilaterall y. Osseous structures are intact. IMPRESSION: Suspect CHF exacerbation on background of chronic emphysematous change as there is cardio megaly with new interstitial edema and central vascular congestion, in addition cannot rule out devel oping acute right basilar infiltrate. Progress study advised.
[2017-08-02 20:44] LABS: ABG Base Excess -4.3 mmol/L; ABG HCO3 23 mmol/L (21-25); ABG Oxygen Saturation 84.2 % (94-97); ABG PCO2 52 mmHg (35-45); ABG PH 7.25 (7.35-7.45); ABG PO2 55 mmHg (83-108); ABG TCO2 24 mmol/L (19-24)
[2017-08-02 20:46] LABS: Basophils % (A) 0 %; Eosinophils # (A) 0.1 k/uL (0-0.7); Eosinophils % (A) 1 %; HCT 48.1 % (39.0-53.0); Lymphocytes # (A) 3.7 k/uL (1.0-4.8); Lymphocytes % (A) 28 %; MCH 32.8 pg (25.0-35.0); MCHC 32.6 g/dL (31.0-37.0); MCV 100.7 fL (80.0-100.0); Macrocytosis Slight; Mean Platelet Volume 7.9; Monocytes # (A) 0.6 k/uL (0-1.0); Monocytes % (A) 4 %; Neutrophils # (A) 8.6 k/uL (1.3-7.7); Neutrophils % (A) 65 %; Platelet Count 215 k/uL (150-450); RBC 4.78 m/uL (4.30-5.90); WBC 13.4 k/uL (3.8-10.6)
[2017-08-02 20:52] LABS: Anion Gap 16 mmol/L; Blood Urea Nitrogen 14 mg/dL (9-20); Calcium 9.6 mg/dL (8.4-10.2); Carbon Dioxide 22 mmol/L (22-30); Chloride 105 mmol/L (98-107); Glucose 152 mg/dL (74-99); Potassium 4.6 mmol/L (3.5-5.1); Sodium 143 mmol/L (137-145)
--- NOTE | 2017-08-02 20:53 | CT ---
EXAMINATION TYPE: CT abdomen pelvis wo con DATE OF EXAM: 08/02/2017 HISTORY: Fever, weakness, positive blood cultures. CT DLP: 1131 mGycm. Automated Exposure Control for Dose Reduction was Utilized. TECHNIQUE: CT scan of the abdomen and pelvis is performed with oral but without IV contrast. COMPARISON: NONE FINDINGS: Within the limitations of a non-contrast study, the following observations are made. LUNG BASES: There is groundglass opacity in the right lower lobe. There is less prominent groundglass opacity in the left lower lobe. There is suspected coronary stent in the distal RCA. LIVER/GB: There is suspected acute cholecystitis as there is ill definition of the gallbladder with s urrounding moderate inflammatory change and distended peripheral margins, some central density is cb picious for small calculi. Abnormal gallbladder wall thickening is also likely present. PANCREAS: No significant abnormality is seen. SPLEEN: No significant abnormality is seen. ADRENALS: No significant abnormality is seen. KIDNEYS: There is staghorn type calculus lower pole calyx on the right measuring 14 mm long axis ivy nal image 77. There is a staghorn-type calculus centrally left kidney measuring 11 mm on coronal imag e 70. There are 2 additional smaller calculi in the left kidney Some cortical thinning of both kidney s is present. There is no hydronephrosis or obstructing renal calculi clearly seen bilaterally. . No intraluminal calculus in the bladder is present. BOWEL: Oral contrast does not reach colonic level. There is no suspicious small or large bowel dilata tion. GENITAL ORGANS: Prostate gland is large in size bulging of bladder base, underlying BPH is felt pres ent. There are a few scattered pelvic phleboliths. Suspect surgical clip or prominent phlebolith left pelvis axial image 85. LYMPH NODES: No greater than 1cm abdominal or pelvic lymph nodes are appreciated. OSSEOUS STRUCTURES: Metallic artifact from left hip arthroplasty is present causing streak artifact l imiting evaluation of pelvic structures. There is moderate axial joint space loss and right hip. OTHER: There is severe vascular calcification of aorta extending into the pelvic branch vessels IMPRESSION: CT findings are consistent with acute cholecystitis as detailed above. Critical results communicated to patient's nurse via telephone at time of dictation.
[2017-08-02 20:58] LABS: HGB 15.7 gm/dL (13.0-17.5)
[2017-08-02] MEDS ORDERED: amLODIPine 5 MG TAB PO SCH (21:00)
[2017-08-02] MEDS ORDERED: TAMSULOSIN 0.4 MG CAP.ER.24H PO SCH (21:00)
[2017-08-02] MEDS ORDERED: PROPOFOL 10 MG/ML 20 ML VIAL IV ONE (21:00)
[2017-08-02] MEDS ORDERED: PROPOFOL 100 ML IV ONE (21:00)
[2017-08-02] MEDS ORDERED: MIDAZOLAM 2 MG/2 ML VIAL ONE (21:00)
[2017-08-02] MEDS ORDERED: SUCCINYLCHOLINE CHLORIDE 100 MG/5 ML SYR IV ONE (21:00)
[2017-08-02] MEDS ORDERED: AZITHROMYCIN 500 MG in SODIUM CHLORIDE 0.9% 250 ML IVPB SCH (21:00)
[2017-08-02] MEDS: PROPOFOL 1,000 MG in EMPTY BAG 1 BAG IV SCH (21:10)
[2017-08-02 21:13] LABS: Glucose,Whole Blood 171 mg/dL (75-99)
[2017-08-02 21:40] LABS: ABG Base Excess -4.5 mmol/L; ABG HCO3 22 mmol/L (21-25); ABG Oxygen Saturation 91.6 % (94-97); ABG PCO2 49 mmHg (35-45); ABG PH 7.27 (7.35-7.45); ABG PO2 69 mmHg (83-108); ABG TCO2 24 mmol/L (19-24)
--- NOTE | 2017-08-02 21:43 | XR ---
EXAMINATION TYPE: XR chest 1V portable DATE OF EXAM: 08/02/2017 CLINICAL HISTORY: Difficulty breathing had to be intubated. TECHNIQUE: Single AP portable frontal view of the chest is obtained. COMPARISON: Chest x-ray from earlier today and older studies FINDINGS: There is new endotracheal tube with tip at mid clavicular margin, approximately [address] There is new orogastric tube tip is projecting below diaphragm. Overlying sternal wires are redemonstrated. There is cardiomegaly with atherosclerotic and ectatic th oracic aorta. There is chronic parenchymal change with worsening right mid to lower lung opacity. No large pleural effusion or pneumothorax is present bilaterally. Osseous structures are intact. Possibl e some improved central vascular congestion noted. IMPRESSION: 1. New endotracheal and orogastric tubes are felt satisfactory in position. 2. Chronic parenchymal change and cardiomegaly with worsening right mid to lower lung edema and/or in filtrate.
[2017-08-02] MEDS: LORazepam 2 MG/ML INJ IV PRN (22:00)
[2017-08-02] MEDS ORDERED: NALOXONE 0.4 MG/ML 1 ML VIAL IV PRN (22:27)
[2017-08-02] MEDS ORDERED: ACETAMINOPHEN SUPPOSITORY 650 MG SUPP RECTAL PRN (22:27)
[2017-08-02] MEDS: FAMOTIDINE 20 MG/2 ML VIAL IV SCH (23:19)
--- NOTE | 2017-08-02 23:23 | CONS ---
CONSULTATION DATE OF SERVICE: 08/02/2017. REASON FOR CONSULTATION: Sepsis, possible bacteremia. HISTORY OF PRESENT ILLNESS: The patient is an 81-year-old male who has been admitted to the hospital last night with the patient complaining of not feeling well. The patient was complaining of feeling dizzy and lightheaded. He did have some cough but no sputum production. His symptoms had been going on for a couple of days prior to presentation to the hospital. He was initially evaluated by his primary care physician. Subsequently the patient started having a fever with some rigors and chills. Hence, he was brought to the ER where the patient was evaluated by the ER physician. The patient did have a chest x-ray completed this morning which did show COPD with cardiomegaly but no acute changes. The patient did have a fever of 102.4 degrees Fahrenheit on presentation. The patient did have a wound white count which was normal at 9.9. Repeat one was showing 13.4. Lactic acid slightly elevated 2.2. level 1.37. The patient did have blood cultures obtained showing gram-negative bacilli. Infectious Disease was consulted for further recommendation. No UA has been done on this admission. Influenza serology was negative. At the time of evaluation this afternoon the patient has been feeling weak and tired. He did complain of some pain in the left upper abdominal area, more of a dull aching pain 3 to 4 out of 10 with no radiation. No nausea or vomiting. No diarrhea. No constipation and no urinary symptoms. REVIEW OF SYSTEMS: CONSTITUTIONAL: Positive for weakness along with the fever. EYES: No complaints. ENT: No complaints. RESPIRATORY: As per HPI. CARDIOVASCULAR: No complaint. GENITOURINARY: No complaints. GASTROINTESTINAL: As per HPI. MUSCULOSKELETAL: No complaints. ENT: No complaints. PSYCHOLOGICAL: No complaints. ENDOCRINE: No complaints. NEUROLOGIC: No complaints. PAST MEDICAL HISTORY: Significant for hypertension, hyperlipidemia, coronary artery disease, osteoarthritis, history of kidney stone, prostate disorder, heart failure. PAST SURGICAL HISTORY: Coronary bypass grafting, PTCA with stent, tonsillectomy, left hip replacement, left groin hernia repair. SOCIAL HISTORY: The patient has a 40 pack-year smoking, quit in 1977. Occasionally drinks. No drug use. FAMILY HISTORY: Mother was diagnosed with a history of [place]. ALLERGIES: Cephalexin and ciprofloxacin. MEDICATIONS: 1. Unasyn 3 g every 6 hours. 2. Tylenol. 3. DuoNeb. 4. Zyloprim. 5. Amiodarone. 6. Symbicort. 7. Coreg. 8. Aggrenox. 9. Lovenox. 10.Pepcid. 11.Ativan. 12.Cozaar. 13.Narcan. 14.Aldactone. EXAMINATION: Blood pressure 120/71 with a pulse of 59, temperature of 97.9, he is 93% on 2 L nasal cannula. GENERAL DESCRIPTION: An elderly male, lying in bed in no distress. No accessory muscle of respiration use. HEENT examination, no pallor or scleral icterus. Oral mucosa is dry. No pharyngeal erythema. No thrush. NECK: Trachea central. No thyromegaly. LUNGS: Unlabored breathing, decreased breath sounds at the bases. No wheeze or crackle. HEART: S1, S2. Regular. ABDOMEN: Soft, mildly tender in the left lower quadrant area. No guarding. No rigidity. No organomegaly. EXTREMITIES: No edema of feet. SKIN: No rash or mass palpable. NEUROLOGIC: Awake, alert, oriented x3. Mood and affect normal. LABS: Hemoglobin 15.7, white count 13.4, BUN of 14, creatinine 0.98, creatinine 2.2, glucose elevated, blood culture gram-negative bacilli. No UA. Chest x-ray was mostly cardiomegaly, has CHF pattern. DIAGNOSTIC IMPRESSION AND PLAN: Patient with sepsis which is gram-negative, source likely abdominal. The patient did have a CT of the abdomen and pelvis that was requested at the time of my evaluation and completed subsequently, showed evidence of acute cholecystitis, likely the source of his bacteremia and sepsis. The patient with no urinary symptoms. No evidence of any cellulitis. The chest x-ray mostly with cardiomegaly and CHF rather than pneumonia. PLAN: 1. Discontinue Unasyn. 2. The patient was started on Zosyn 3.375 g every 8 hours. 3. General surgery evaluation. 4. We will follow up on the clinical condition and culture to further adjust medication if needed. Thank you for this consultation, will follow the patient along with you. MMODL / IJN: [id number] /
[2017-08-02 23:35] LABS: Appearance,Urine Clear (Clear); Bilirubin,Urine Negative (Negative); Blood,Urine Small (Negative); Color,Urine Yellow; Glucose,Urine (UA) Negative (Negative); Hyaline Casts,Urine 3 /lpf (0-2); Ketones,Urine Negative (Negative); Leukocyte Esterase,Urine Moderate (Negative); Mucus,Urine Rare /hpf; Nitrite,Urine Negative (Negative); Protein,Urine 2+ (Negative); RBC,Urine 21 /hpf (0-5); Specific Gravity,Urine 1.009 (1.001-1.035); Squamous Epithelial Cell,Urine <1 /hpf (0-4); Urobilinogen,Urine <2.0 mg/dL (<2.0); WBC,Urine 22 /hpf (0-5)
[2017-08-02 23:42] LABS: Glucose,Whole Blood 161 mg/dL (75-99)
[2017-08-02 23:58] LABS: ABG Base Excess -3.2 mmol/L; ABG HCO3 23 mmol/L (21-25); ABG Oxygen Saturation 97.2 % (94-97); ABG PCO2 43 mmHg (35-45); ABG PH 7.33 (7.35-7.45); ABG PO2 91 mmHg (83-108); ABG TCO2 24 mmol/L (19-24)
[2017-08-03] MEDS: DIPYRIDAMOLE-ASPIRIN 200-25 MG 1 EACH CPMP.12HR PO SCH (00:10)
[2017-08-03] MEDS: PIPERACILLIN-TAZOBACTAM 3.375 GM in DEXTROSE/WATER 1 50ML.BAG IVPB SCH ×3 (00:19→16:59)
[2017-08-03] MEDS: ALLOPURINOL 300 MG TAB PO SCH ×2 (00:19→21:00)
[2017-08-03] MEDS: SODIUM CHLORIDE 0.9% 1,000 ML IV SCH ×2 (02:08→23:39)
[2017-08-03] MEDS: PROPOFOL 1,000 MG in EMPTY BAG 1 BAG IV SCH ×4 (02:08→20:58)
[2017-08-03] MEDS: INSULIN ASPART 100 UNIT/ML 1 ML 10 ML VIAL SQ SCH ×5 (02:14→21:07)
[2017-08-03 02:33] LABS: Glucose,Whole Blood 167 mg/dL (75-99)
[2017-08-03 04:48] LABS: ABG Base Excess -1.9 mmol/L; ABG HCO3 24 mmol/L (21-25); ABG Oxygen Saturation 98.9 % (94-97); ABG PCO2 42 mmHg (35-45); ABG PH 7.36 (7.35-7.45); ABG PO2 217 mmHg (83-108); ABG TCO2 25 mmol/L (19-24)
[2017-08-03] MEDS ORDERED: SODIUM CHLORIDE 0.9% 500 ML IV ONE (05:20)
[2017-08-03 05:27] LABS: Basophils % (A) 0 %; Eosinophils % (A) 0 %; HCT 39.2 % (39.0-53.0); HGB 12.8 gm/dL (13.0-17.5); Lymphocytes # (A) 1.3 k/uL (1.0-4.8); Lymphocytes % (A) 16 %; MCH 32.7 pg (25.0-35.0); MCHC 32.7 g/dL (31.0-37.0); MCV 100.1 fL (80.0-100.0); Macrocytosis Slight; Mean Platelet Volume 8.4; Monocytes # (A) 0.4 k/uL (0-1.0); Monocytes % (A) 5 %; Neutrophils # (A) 6.2 k/uL (1.3-7.7); Neutrophils % (A) 77 %; Platelet Count 168 k/uL (150-450); RBC 3.92 m/uL (4.30-5.90)
[2017-08-03 05:39] LABS: Calcium 8.9 mg/dL (8.4-10.2); Magnesium 2.1 mg/dL (1.6-2.3); Phosphorus 4.5 mg/dL (2.5-4.5); Potassium 4.5 mmol/L (3.5-5.1)
[2017-08-03] MEDS: AMIODARONE 450 MG in DEXTROSE 5% IN WATER 250 ML IV SCH ×6 (06:15→11:36)
[2017-08-03 07:24] LABS: Glucose,Whole Blood 109 mg/dL (75-99)
[2017-08-03] MEDS: IPRATROPIUM-ALBUTEROL 3 ML NEB INHALATION SCH ×4 (07:38→18:47)
[2017-08-03] MEDS: SYMBICORT 160-4.5 MCG INHALER INHALATION SCH ×2 (07:39→19:13)
--- NOTE | 2017-08-03 08:07 | XR ---
EXAMINATION TYPE: XR chest 1V DATE OF EXAM: 08/03/2017 COMPARISON: 08/02/2017 HISTORY: SOB, Follow Up FINDINGS: Indwelling tubes and catheters are unchanged. No change in bibasilar opacities. Stable appearance of the cardio-mediastinal structures at this time. Pleural effusion unchanged. IMPRESSION: 1. Stable portable chest. Clinical correlation and follow up until resolution is recommended.
[2017-08-03] MEDS ORDERED: NOREPINEPHRIN 4 MG-0.9% NS PMX 4 MG/250 ML ML IV SCH (08:30)
--- NOTE | 2017-08-03 08:51 | P.PN ---
Subjective Progress Note Date: 08/03/17 (Critical care time spent 45 minutes which is separate then time spent for the procedures) Principal diagnosis: Gram-negative sepsis and bacteremia, severe degree of ischemic cardiomyopathy with ejection fraction of 35%, acute on chronic systolic heart failure, acute cholecystitis, coronary artery disease, 08/03/2017, patient seen and evaluated examined in the ICU this patient has been admitted into the hospital with generalized weakness syncope intermittent runs of V. tach with baseline history of severe degree of cardiomyopathy ischemic in nature with ejection fraction just 30-35% patient has a patchy infiltrate on the right side is being treated for pneumonia and sepsis, around 9 PM patient had episode of increasing shortness of breath increases abdominal pain a computed tomography scan of the abdominal and pelvis revealed presence of cholecystitis, general surgery has been consulted patient continued to increase respiratory distress eventually brought into the ICU where he was intubated patient was initially hypertensive however postintubation has episode of hypertension and earlier this morning required fluid resuscitation he did receive Lasix with some urine output yesterday currently Lasix is being held at it appears that patient is somewhat volume depleted culture results and reports are reviewed patient is growing gram-negative rods in the blood likely source being ascending cholangitis versus urinary tract infection with first being more likely urine culture however is pending urinalysis suggestive of inflammatory processes though. His ventilator settings reviewed currently patient is on assist control rate of 18 breathing 22 he is on tidal volume of 500, PEEP is 10 and FiO2 was initially 100% and gradually titrated down to 60% his lactic acid level was mildly elevated pro calcitonin was elevated to, currently patient is on amiodarone map is around 65-70 he is also on propofol 15 mics normal saline KVO amiodarone drip as 0.5 mg/m, patient is well sedated with current ventilator setting and sedation and also being treated with broad- spectrum antibiotics with IV Zosyn his medications are reviewed given that hypertension is present antihypertensive agents are being held, patient will need IV axis but triple-lumen catheter as well as and A-line consent are being obtained 81-year-old male with history of ischemic cardiomyopathy ejection fraction of 30 -35% has not been feeling well for the last 2-3 week with increasing shortness of breath patient does have a history of chronic lower extremity edema with a history of coronary artery disease status post CABG back in 1995. Patient for the last 2 weeks has not been feeling well has been more short of breath than usual has dry nonproductive cough as well which is intermittent off and on due to progressive increasing shortness of breath lately has been feeling weak as well with some intermittent episodes of dizziness lightheadedness patient came into the emergency department he did spike a fever up to 102, over his white cell count were normal chest x-ray showed borderline cardiomegaly and some early infiltrate in the right midlung field cannot be excluded. Patient about 2 weeks ago had a recent fall however he never lost his consciousness no seizure -like activity was seen patient appears to have developed nondisplaced left 10th rib fracture as seen on the rib x-rays. On arrival patient appeared to be in acute exacerbation of CHF likely acute on chronic systolic heart failure with elevated BNP of over 1800, in addition to above patient had echocardiogram which revealed ejection fraction 30% with inferior basal hypokinesia, patient also noted to have intermittent runs of PVCs and has been placed on IV amiodarone, this requestioning patient denies any chest pain or radiation of pain denies any sputum production denies any night sweats fever or chills he denies any seizure-like activity he did have intermittent dizziness usually turning around. He denies any bowel or bladder dysfunction he has chronic lower extremity trace edema. Objective - Vital Signs Vital signs: Vital Signs Temp 98.2 F 08/03/17 04:00 Pulse 70 08/03/17 07:50 Resp 24 08/03/17 07:00 BP 85/58 08/03/17 07:00 Pulse Ox 97 08/03/17 07:00 Intake & Output 08/02/17 08/03/17 08/03/17 18:59 06:59 18:59 Intake Total 1329.419 858.858 46.167 Output Total 760 Balance 1329.419 98.858 46.167 Weight 114.4 kg Intake: IV 730 Piperacillin-Tazobactam 3 50 .375 gm In Dextrose/Water 1 50ml.bag @ 12.5 mls/hr IVPB Q8HR [facility] Rx#: [id number] Sodium Chloride 0.9% 1, 180 000 ml @ 20 mls/hr IV . Q24H [facility] Rx#:[id number] Sodium Chloride 0.9% 500 500 ml @ 999 mls/hr IV .Q31M [facility] Rx#:[id number] Intake, IV Titration 249.419 128.858 46.167 Amount Amiodarone 450 mg In 249.419 Dextrose 5% in Water 250 ml @ 1 MG/MIN 33.33 mls/ hr IV .Q7H31M [facility] Rx#: [id number] Propofol 1,000 mg In 128.858 46.167 Empty Bag 1 bag @ Titrate IV .Q0M [facility] Rx#: [id number] Oral 1080 Output: Urine 760 Other: Voiding Method Urinal Indwelling Catheter # Voids 2 - Exam - Constitutional General appearance: average body habitus, sedated on full ventilator support- EENT Eyes: EOMI, PERRLA, normal appearance ENT: hard of hearing Ears: bilateral: normal - Neck Neck: normal ROM Carotids: right: bruit absent, bilateral: upstroke normal Thyroid: bilateral: normal size - Respiratory Respiratory: bilateral: CTA, few basal crackles bilaterally are present - Cardiovascular Heart sounds: normal: S1 and S2 no gallop rub or murmur - Gastrointestinal General gastrointestinal: normal bowel sounds, soft - Integumentary Integumentary: normal, normal turgor - Neurologic Sedated with propofol on full ventilator support - Musculoskeletal Musculoskeletal: gait normal, generalized weakness, strength equal bilaterally - Psychiatric Psychiatric: Sedated with propofol on full ventilator support - Labs CBC & Chem 7: 08/03/17 04:56 08/03/17 04:56 Labs: Abnormal Lab Results - Last 24 Hours (Table) 08/02/17 08/02/17 08/02/17 Range/Units 11:57 20:17 20:35 WBC 13.4 H (3.8-10.6) k/uL RBC (4.30-5.90) m/uL Hgb (13.0-17.5) gm/dL MCV 100.7 H (80.0-100.0) fL Neutrophils # 8.6 H (1.3-7.7) k/uL D-Dimer (<0.60) mg/L FEU ABG pH (7.35-7.45) ABG pCO2 (35-45) mmHg ABG pO2 (83-108) mmHg ABG Total CO2 (19-24) mmol/L ABG O2 Saturation (94-97) % Glucose (74-99) mg/dL POC Glucose (mg/dL) 120 H (75-99) mg/dL Plasma Lactic Acid Javad (0.7-2.0) mmol/L Procalcitonin 1.37 H (0.02-0.09) ng/mL Urine Protein (Negative) Urine Blood (Negative) Ur Leukocyte Esterase (Negative) Urine RBC (0-5) /hpf Urine WBC (0-5) /hpf Urine WBC Clumps (None) /hpf Hyaline Casts (0-2) /lpf Urine Mucus (None) /hpf 08/02/17 08/02/17 08/02/17 Range/Units 20:35 20:35 20:35 WBC (3.8-10.6) k/uL RBC (4.30-5.90) m/uL Hgb (13.0-17.5) gm/dL MCV (80.0-100.0) fL Neutrophils # (1.3-7.7) k/uL D-Dimer 3.51 H (<0.60) mg/L FEU ABG pH (7.35-7.45) ABG pCO2 (35-45) mmHg ABG pO2 (83-108) mmHg ABG Total CO2 (19-24) mmol/L ABG O2 Saturation (94-97) % Glucose 152 H (74-99) mg/dL POC Glucose (mg/dL) (75-99) mg/dL Plasma Lactic Acid Javad 2.2 H* (0.7-2.0) mmol/L Procalcitonin (0.02-0.09) ng/mL Urine Protein (Negative) Urine Blood (Negative) Ur Leukocyte Esterase (Negative) Urine RBC (0-5) /hpf Urine WBC (0-5) /hpf Urine WBC Clumps (None) /hpf Hyaline Casts (0-2) /lpf Urine Mucus (None) /hpf 08/02/17 08/02/17 08/02/17 Range/Units 20:41 21:09 21:37 WBC (3.8-10.6) k/uL RBC (4.30-5.90) m/uL Hgb (13.0-17.5) gm/dL MCV (80.0-100.0) fL Neutrophils # (1.3-7.7) k/uL D-Dimer (<0.60) mg/L FEU ABG pH 7.25 L 7.27 L (7.35-7.45) ABG pCO2 52 H 49 H (35-45) mmHg ABG pO2 55 L 69 L (83-108) mmHg ABG Total CO2 (19-24) mmol/L ABG O2 Saturation 84.2 L 91.6 L (94-97) % Glucose (74-99) mg/dL POC Glucose (mg/dL) 171 H (75-99) mg/dL Plasma Lactic Acid Javad (0.7-2.0) mmol/L Procalcitonin (0.02-0.09) ng/mL Urine Protein (Negative) Urine Blood (Negative) Ur Leukocyte Esterase (Negative) Urine RBC (0-5) /hpf Urine WBC (0-5) /hpf Urine WBC Clumps (None) /hpf Hyaline Casts (0-2) /lpf Urine Mucus (None) /hpf 08/02/17 08/02/17 08/02/17 Range/Units 23:20 23:41 23:54 WBC (3.8-10.6) k/uL RBC (4.30-5.90) m/uL Hgb (13.0-17.5) gm/dL MCV (80.0-100.0) fL Neutrophils # (1.3-7.7) k/uL D-Dimer (<0.60) mg/L FEU ABG pH 7.33 L (7.35-7.45) ABG pCO2 (35-45) mmHg ABG pO2 (83-108) mmHg ABG Total CO2 (19-24) mmol/L ABG O2 Saturation 97.2 H (94-97) % Glucose (74-99) mg/dL POC Glucose (mg/dL) 161 H (75-99) mg/dL Plasma Lactic Acid Javad (0.7-2.0) mmol/L Procalcitonin (0.02-0.09) ng/mL Urine Protein 2+ H (Negative) Urine Blood Small H (Negative) Ur Leukocyte Esterase Moderate H (Negative) Urine RBC 21 H (0-5) /hpf Urine WBC 22 H (0-5) /hpf Urine WBC Clumps Rare H (None) /hpf Hyaline Casts 3 H (0-2) /lpf Urine Mucus Rare H (None) /hpf 08/03/17 08/03/17 08/03/17 Range/Units 02:12 04:46 04:56 WBC (3.8-10.6) k/uL RBC (4.30-5.90) m/uL Hgb (13.0-17.5) gm/dL MCV (80.0-100.0) fL Neutrophils # (1.3-7.7) k/uL D-Dimer (<0.60) mg/L FEU ABG pH (7.35-7.45) ABG pCO2 (35-45) mmHg ABG pO2 217 H (83-108) mmHg ABG Total CO2 25 H (19-24) mmol/L ABG O2 Saturation 98.9 H (94-97) % Glucose 135 H (74-99) mg/dL POC Glucose (mg/dL) 167 H (75-99) mg/dL Plasma Lactic Acid Javad (0.7-2.0) mmol/L Procalcitonin (0.02-0.09) ng/mL Urine Protein (Negative) Urine Blood (Negative) Ur Leukocyte Esterase (Negative) Urine RBC (0-5) /hpf Urine WBC (0-5) /hpf Urine WBC Clumps (None) /hpf Hyaline Casts (0-2) /lpf Urine Mucus (None) /hpf 08/03/17 08/03/17 Range/Units 04:56 07:17 WBC (3.8-10.6) k/uL RBC 3.92 L (4.30-5.90) m/uL Hgb 12.8 L (13.0-17.5) gm/dL MCV 100.1 H (80.0-100.0) fL Neutrophils # (1.3-7.7) k/uL D-Dimer (<0.60) mg/L FEU ABG pH (7.35-7.45) ABG pCO2 (35-45) mmHg ABG pO2 (83-108) mmHg ABG Total CO2 (19-24) mmol/L ABG O2 Saturation (94-97) % Glucose (74-99) mg/dL POC Glucose (mg/dL) 109 H (75-99) mg/dL Plasma Lactic Acid Javad (0.7-2.0) mmol/L Procalcitonin (0.02-0.09) ng/mL Urine Protein (Negative) Urine Blood (Negative) Ur Leukocyte Esterase (Negative) Urine RBC (0-5) /hpf Urine WBC (0-5) /hpf Urine WBC Clumps (None) /hpf Hyaline Casts (0-2) /lpf Urine Mucus (None) /hpf Microbiology - Last 24 Hours (Table) 08/02/17 21:58 Gram Stain - Preliminary Sputum Sputum Culture - Preliminary 08/01/17 22:55 Blood Culture Gram Stain - Preliminary Blood Blood Culture - Preliminary Gram Neg Bacilli 08/01/17 22:55 Blood Culture - Final Blood Assessment and Plan Assessment: Severe sepsis and septic shock related to gram-negative bacteremia Acute cholangitis and gram-negative bacteremia Acute cholecystitis Early developing pneumonia in right midlung field cannot be excluded agree Zosyn Acute hypoxic and hypercapnic respirator failure multifactorial related to above Spiking fever may be related to above however will follow up on urine culture results and report Acute exacerbation of CHF likely acute on chronic systolic heart failure with ejection fraction of 30-35% Status post fall with left 10th rib fracture Coronary artery disease and ischemic cardiomyopathy Intermittent episodes of PVCs and arrhythmia, patient is on amiodarone currently History of BPH Dyslipidemia hypertension hypertensive cardiovascular disease Plan: Gentle diuresis with intermittent fluid resuscitation as needed her eyes May need vasopressors as blood pressure is marginal Hold antihypertensive agents Medicine adjusted Surgical consultation Broad-spectrum antibiotics Breathing treatment Follow-up on urine and blood culture results and report Optimize cardiovascular therapy Repeat labs and x-ray tomorrow Patient will need a central line and A-line Critical care time spent 45 minutes Time with Patient: Greater than 30
[2017-08-03] MEDS: ENOXAPARIN 40 MG/0.4 ML SYRINGE SQ SCH (08:53)
[2017-08-03] MEDS: CHLORHEXIDINE GLUCONATE 15 ML CUP MUCOUS MEM SCH ×2 (08:53→21:00)
[2017-08-03] MEDS: SPIRONOLACTONE 25 MG TAB PO SCH (08:54)
[2017-08-03] MEDS: ASPIRIN 81 MG PO SCH (08:59)
--- NOTE | 2017-08-03 09:10 | P.PCN ---
Date of Procedure: 08/03/17 Preoperative Diagnosis: Severe sepsis and septic shock, gram-negative bacteremia, acute cholecystitis, coronary artery disease, ischemic cardiomyopathy, right-sided pneumonia Postoperative Diagnosis: As above Anesthesia: local Estimated Blood Loss (ml): 1 Condition: critical Disposition: ICU Indications for Procedure: As above Operative Findings: As below Description of Procedure: Patient prepared and draped in a usual fashion informed consent obtained from the family as well as procedure were performed followed by using a modified Seldinger technique single-lumen catheter inserted into right radial artery without any difficulty patient tolerated the procedure well no complication noted catheter secured with #1 silk no complication noted patient tolerated procedure
[2017-08-03] MEDS ORDERED: CISATRACURIUM 2 MG/ML 5 ML VIAL IV ONE (09:14)
--- NOTE | 2017-08-03 09:32 | P.PCN ---
Date of Procedure: 08/03/17 Preoperative Diagnosis: Severe sepsis and septic shock, gram-negative bacteremia, acute cholangitis, coronary artery disease, ischemic cardiomyopathy Postoperative Diagnosis: As above Procedure(s) Performed: Right sided internal jugular triple-lumen catheter placement Anesthesia: local Surgeon: Grzegorz Wright Estimated Blood Loss (ml): 5 Condition: critical Disposition: ICU Indications for Procedure: As above Operative Findings: As below Description of Procedure: Informed consent obtained from the family area on the right side of neck was thoroughly cleaned using aseptic technique triple-lumen catheter inserted into the right internal jugular vein via posterior approach all 3 ports are flushed secured with silk patient tolerated procedure well no complication noted
--- NOTE | 2017-08-03 09:53 | XR ---
EXAMINATION TYPE: XR chest 1V confirm line plcmt DATE OF EXAM: 08/03/2017 COMPARISON: 08/03/2017 HISTORY: confirm line plcmt TECHNIQUE: Single frontal view of the chest is obtained. FINDINGS: Indwelling tubes and catheters are unchanged. No change in bibasilar opacities. Stable rosa earance of the cardio-mediastinal structures at this time. Pleural effusion unchanged. There is inter remy placement of right-sided central venous catheter with tip overlying the SVC. No pneumothorax. IMPRESSION: 1. Stable portable chest. Clinical correlation and follow up until resolution is recommended. Finding s could been the basis of venous congestion or underlying pneumonia. Correlate clinically.
[2017-08-03] MEDS: FAMOTIDINE 20 MG/2 ML VIAL IV SCH ×2 (10:07→21:00)
[2017-08-03 10:20] LABS: Partial Thromboplastin Time 25.3 sec (22.0-30.0)
[2017-08-03 10:41] LABS: Appearance,Urine Clear (Clear); Bilirubin,Urine Negative (Negative); Blood,Urine Trace (Negative); Color,Urine Yellow; Glucose,Urine (UA) Negative (Negative); Ketones,Urine Negative (Negative); Leukocyte Esterase,Urine Large (Negative); Mucus,Urine Rare /hpf; Nitrite,Urine Negative (Negative); Protein,Urine Trace (Negative); RBC,Urine 6 /hpf (0-5); Specific Gravity,Urine 1.013 (1.001-1.035); Urobilinogen,Urine <2.0 mg/dL (<2.0); WBC,Urine 30 /hpf (0-5)
[2017-08-03 11:12] LABS: Albumin 2.7 g/dL (3.5-5.0); Total Bilirubin 0.4 mg/dL (0.2-1.3)
--- NOTE | 2017-08-03 11:12 | P.GSCN ---
History of Present Illness Consult date: 08/03/17 Reason for Consult: cholecystitis History of present illness: The patient is a 81-year-old man who presented to the emergency department feeling lightheaded and dizzy. He had a cough. Chest x-ray was suggestive of a pneumonia so he was admitted. Yesterday he became markedly worse and required intubation. Blood cultures have subsequently come back with gram- negative bacilli. The patient is currently intubated. History is obtained from the chart and family. says he did have a big meal with quite a bit of meat about 3 weeks ago and vomited afterwards. He also had an episode of vomiting one evening without any particular complaints of abdominal pain. His appetite has been off for quite a while and he has been losing weight. No jaundice that they have noticed. Review of Systems All systems: negative Past Medical History Past Medical History: Chest Pain / Angina, Heart Failure, CVA/TIA, Hyperlipidemia, Hypertension, Myocardial Infarction ([place]), Osteoarthritis ([place]), Prostate Disorder Additional Past Medical History / Comment(s): kidney stones, gout,tia 2005, mi 1987 and 1988, IN PAST TOOK MEDS FOR DM-NO LONGER TAKES MEDS OR CHECKS BS. Last Myocardial Infarction Date:: 1988 History of Any Multi-Drug Resistant Organisms: None Reported Past Surgical History: Coronary Bypass/CABG, Heart Catheterization With Stent, Tonsillectomy Additional Past Surgical History / Comment(s): left hip replacement 2009,lt inguinal hernia repair, cystocopy,turp,quad cabg 1995 had heart cath w/ stent after cabg,aaa reapir 2000, dianne cataracts, lt hand sx (revison of amp lt thumb) , kidney stones removed, vasectomy. Past Anesthesia/Blood Transfusion Reactions: No Reported Reaction Date of Last Stent Placement:: unk Past Psychological History: No Psychological Hx Reported Additional Psychological History / Comment(s): pt lives with his jose in a single story home that has 1 step to enter. pt uses a 4 wheeled seated walker to get around. no steps in home. no home care services recieved. 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 Smoking Status: Former smoker Past Alcohol Use History: Occasional Additional Past Alcohol Use History / Comment(s): smoked for 40 years 2ppd, quit 1977 Past Drug Use History: None Reported - Past Family History Mother Family Medical History: Myocardial Infarction ([place]) Father Family Medical History: Myocardial Infarction ([place]) Medications and Allergies Home Medications Medication Instructions Recorded Confirmed Type Allopurinol [Zyloprim] 300 mg PO HS 08/30/16 08/01/17 History Atenolol 25 mg PO BID 08/30/16 08/01/17 History Budesonide/Formoterol Fumarate 2 puff INHALATION RT-BID 08/30/16 08/01/17 History [Symbicort 160-4.5 Mcg Inhaler] Dipyridamole-Aspirin 200-25 mg 1 tab PO BID 08/30/16 08/01/17 History [Aggrenox 25MG -200MG] Tamsulosin HCl [Flomax] 0.4 mg PO HS 08/30/16 08/01/17 History amLODIPine [Norvasc] 5 mg PO HS 08/30/16 08/01/17 History Allergies Allergy/AdvReac Type Severity Reaction Status Date / Time cephalexin [From Keflex] Allergy Rash/Hives Verified 08/01/17 23:06 ciprofloxacin [From Cipro] Allergy Rash/Hives Verified 08/01/17 23:06 Surgical - Exam Osteopathic Statement: *. No significant issues noted on an osteopathic structural exam other than those noted in the History and Physical/Consult. Vital Signs Temp Pulse Resp BP Pulse Ox 102.4 F H 115 H 20 136/72 93 L 08/01/17 22:42 08/01/17 22:42 08/01/17 22:42 08/01/17 22:42 08/01/17 22:42 - General Currently sedated on the ventilator - Neck trachea midline - Respiratory clear to auscultation - Cardiovascular Rhythm: regular - Abdomen Long midline scar from the xiphoid to the pubis. No obvious right upper quadrant masses palpable Abdomen: soft, bowel sounds - Psychiatric On a Diprivan drip Results - Labs 08/03/17 04:56 08/03/17 04:56 Abnormal Lab Results - Last 24 Hours (Table) 08/02/17 08/02/17 08/02/17 Range/Units 11:57 20:17 20:35 WBC 13.4 H (3.8-10.6) k/uL RBC (4.30-5.90) m/uL Hgb (13.0-17.5) gm/dL MCV 100.7 H (80.0-100.0) fL Neutrophils # 8.6 H (1.3-7.7) k/uL D-Dimer (<0.60) mg/L FEU ABG pH (7.35-7.45) ABG pCO2 (35-45) mmHg ABG pO2 (83-108) mmHg ABG Total CO2 (19-24) mmol/L ABG O2 Saturation (94-97) % Glucose (74-99) mg/dL POC Glucose (mg/dL) 120 H (75-99) mg/dL Plasma Lactic Acid Javad (0.7-2.0) mmol/L Procalcitonin 1.37 H (0.02-0.09) ng/mL Urine Protein (Negative) Urine Blood (Negative) Ur Leukocyte Esterase (Negative) Urine RBC (0-5) /hpf Urine WBC (0-5) /hpf Urine WBC Clumps (None) /hpf Hyaline Casts (0-2) /lpf Urine Mucus (None) /hpf 08/02/17 08/02/17 08/02/17 Range/Units 20:35 20:35 20:35 WBC (3.8-10.6) k/uL RBC (4.30-5.90) m/uL Hgb (13.0-17.5) gm/dL MCV (80.0-100.0) fL Neutrophils # (1.3-7.7) k/uL D-Dimer 3.51 H (<0.60) mg/L FEU ABG pH (7.35-7.45) ABG pCO2 (35-45) mmHg ABG pO2 (83-108) mmHg ABG Total CO2 (19-24) mmol/L ABG O2 Saturation (94-97) % Glucose 152 H (74-99) mg/dL POC Glucose (mg/dL) (75-99) mg/dL Plasma Lactic Acid Javad 2.2 H* (0.7-2.0) mmol/L Procalcitonin (0.02-0.09) ng/mL Urine Protein (Negative) Urine Blood (Negative) Ur Leukocyte Esterase (Negative) Urine RBC (0-5) /hpf Urine WBC (0-5) /hpf Urine WBC Clumps (None) /hpf Hyaline Casts (0-2) /lpf Urine Mucus (None) /hpf 08/02/17 08/02/17 08/02/17 Range/Units 20:41 21:09 21:37 WBC (3.8-10.6) k/uL RBC (4.30-5.90) m/uL Hgb (13.0-17.5) gm/dL MCV (80.0-100.0) fL Neutrophils # (1.3-7.7) k/uL D-Dimer (<0.60) mg/L FEU ABG pH 7.25 L 7.27 L (7.35-7.45) ABG pCO2 52 H 49 H (35-45) mmHg ABG pO2 55 L 69 L (83-108) mmHg ABG Total CO2 (19-24) mmol/L ABG O2 Saturation 84.2 L 91.6 L (94-97) % Glucose (74-99) mg/dL POC Glucose (mg/dL) 171 H (75-99) mg/dL Plasma Lactic Acid Javad (0.7-2.0) mmol/L Procalcitonin (0.02-0.09) ng/mL Urine Protein (Negative) Urine Blood (Negative) Ur Leukocyte Esterase (Negative) Urine RBC (0-5) /hpf Urine WBC (0-5) /hpf Urine WBC Clumps (None) /hpf Hyaline Casts (0-2) /lpf Urine Mucus (None) /hpf 08/02/17 08/02/17 08/02/17 Range/Units 23:20 23:41 23:54 WBC (3.8-10.6) k/uL RBC (4.30-5.90) m/uL Hgb (13.0-17.5) gm/dL MCV (80.0-100.0) fL Neutrophils # (1.3-7.7) k/uL D-Dimer (<0.60) mg/L FEU ABG pH 7.33 L (7.35-7.45) ABG pCO2 (35-45) mmHg ABG pO2 (83-108) mmHg ABG Total CO2 (19-24) mmol/L ABG O2 Saturation 97.2 H (94-97) % Glucose (74-99) mg/dL POC Glucose (mg/dL) 161 H (75-99) mg/dL Plasma Lactic Acid Javad (0.7-2.0) mmol/L Procalcitonin (0.02-0.09) ng/mL Urine Protein 2+ H (Negative) Urine Blood Small H (Negative) Ur Leukocyte Esterase Moderate H (Negative) Urine RBC 21 H (0-5) /hpf Urine WBC 22 H (0-5) /hpf Urine WBC Clumps Rare H (None) /hpf Hyaline Casts 3 H (0-2) /lpf Urine Mucus Rare H (None) /hpf 08/03/17 08/03/17 08/03/17 Range/Units 02:12 04:46 04:56 WBC (3.8-10.6) k/uL RBC (4.30-5.90) m/uL Hgb (13.0-17.5) gm/dL MCV (80.0-100.0) fL Neutrophils # (1.3-7.7) k/uL D-Dimer (<0.60) mg/L FEU ABG pH (7.35-7.45) ABG pCO2 (35-45) mmHg ABG pO2 217 H (83-108) mmHg ABG Total CO2 25 H (19-24) mmol/L ABG O2 Saturation 98.9 H (94-97) % Glucose 135 H (74-99) mg/dL POC Glucose (mg/dL) 167 H (75-99) mg/dL Plasma Lactic Acid Javad (0.7-2.0) mmol/L Procalcitonin (0.02-0.09) ng/mL Urine Protein (Negative) Urine Blood (Negative) Ur Leukocyte Esterase (Negative) Urine RBC (0-5) /hpf Urine WBC (0-5) /hpf Urine WBC Clumps (None) /hpf Hyaline Casts (0-2) /lpf Urine Mucus (None) /hpf 08/03/17 08/03/17 08/03/17 Range/Units 04:56 07:17 10:17 WBC (3.8-10.6) k/uL RBC 3.92 L (4.30-5.90) m/uL Hgb 12.8 L (13.0-17.5) gm/dL MCV 100.1 H (80.0-100.0) fL Neutrophils # (1.3-7.7) k/uL D-Dimer (<0.60) mg/L FEU ABG pH (7.35-7.45) ABG pCO2 (35-45) mmHg ABG pO2 (83-108) mmHg ABG Total CO2 (19-24) mmol/L ABG O2 Saturation (94-97) % Glucose (74-99) mg/dL POC Glucose (mg/dL) 109 H (75-99) mg/dL Plasma Lactic Acid Javad (0.7-2.0) mmol/L Procalcitonin (0.02-0.09) ng/mL Urine Protein Trace H (Negative) Urine Blood Trace H (Negative) Ur Leukocyte Esterase Large H (Negative) Urine RBC 6 H (0-5) /hpf Urine WBC 30 H (0-5) /hpf Urine WBC Clumps (None) /hpf Hyaline Casts (0-2) /lpf Urine Mucus Rare H (None) /hpf Microbiology - Last 24 Hours (Table) 08/02/17 21:58 Gram Stain - Preliminary Sputum Sputum Culture - Preliminary 08/01/17 22:55 Blood Culture Gram Stain - Preliminary Blood Blood Culture - Preliminary Gram Neg Bacilli 08/01/17 22:55 Blood Culture - Final Blood Diabetes panel 08/02/17 08/03/17 Range/Units 20:35 04:56 Sodium 143 139 (137-145) mmol/L Potassium 4.6 4.5 (3.5-5.1) mmol/L Chloride 105 106 (98-107) mmol/L Carbon Dioxide 22 22 (22-30) mmol/L BUN 14 18 (9-20) mg/dL Creatinine 0.80 1.10 (0.66-1.25) mg/dL Glucose 152 H 135 H (74-99) mg/dL Calcium 9.6 8.9 (8.4-10.2) mg/dL Calcium panel 08/02/17 08/03/17 Range/Units 20:35 04:56 Calcium 9.6 8.9 (8.4-10.2) mg/dL Phosphorus 4.5 (2.5-4.5) mg/dL Pituitary panel 08/02/17 08/03/17 Range/Units 20:35 04:56 Sodium 143 139 (137-145) mmol/L Potassium 4.6 4.5 (3.5-5.1) mmol/L Chloride 105 106 (98-107) mmol/L Carbon Dioxide 22 22 (22-30) mmol/L BUN 14 18 (9-20) mg/dL Creatinine 0.80 1.10 (0.66-1.25) mg/dL Glucose 152 H 135 H (74-99) mg/dL Calcium 9.6 8.9 (8.4-10.2) mg/dL Adrenal panel 08/02/17 08/03/17 Range/Units 20:35 04:56 Sodium 143 139 (137-145) mmol/L Potassium 4.6 4.5 (3.5-5.1) mmol/L Chloride 105 106 (98-107) mmol/L Carbon Dioxide 22 22 (22-30) mmol/L BUN 14 18 (9-20) mg/dL Creatinine 0.80 1.10 (0.66-1.25) mg/dL Glucose 152 H 135 H (74-99) mg/dL Calcium 9.6 8.9 (8.4-10.2) mg/dL - Imaging CT scan - abdomen: report reviewed, image reviewed (The films were reviewed with the interventional radiologist to see whether the patient was a candidate for a cholecystostomy tube. Unfortunately the colon would be in the way and at risk of injury with a percutaneous drainage.) Assessment and Plan (1) Gram-negative sepsis with organ dysfunction Current Visit: Yes Status: Acute Code(s): A41.50 - GRAM-NEGATIVE SEPSIS, UNSPECIFIED; R65.20 - SEVERE SEPSIS WITHOUT SEPTIC SHOCK SNOMED Code(s): 630983978 (2) Cholecystitis Current Visit: Yes Status: Acute Code(s): K81.9 - CHOLECYSTITIS, UNSPECIFIED SNOMED Code(s): 71764684 (3) Coronary artery disease Current Visit: Yes Status: Acute Code(s): I25.10 - ATHSCL HEART DISEASE OF [place] CORONARY ARTERY W/O ANG PCTRS SNOMED Code(s): 33918690 (4) Systolic heart failure Current Visit: Yes Status: Acute Code(s): I50.20 - UNSPECIFIED SYSTOLIC ( CONGESTIVE) HEART FAILURE SNOMED Code(s): 631668422 (5) Respiratory failure Current Visit: Yes Status: Acute Code(s): J96.90 - RESPIRATORY FAILURE, UNSP , UNSP W HYPOXIA OR HYPERCAPNIA SNOMED Code(s): 973384502 Plan: A discussion had been held with the family. Initially an ultrasound was ordered to see if he was a candidate for cholecystostomy tube. Unfortunately while reviewing the computed tomography scan with the radiologist, he would not be a candidate due to the location of the colon. Discussion was also held with Dr. Wright via phone. With the gram-negative sepsis of gallbladder origin, he needs to have a cholecystectomy. At this point the patient is not on any vasopressors so Dr. Wright felt that medically he is as stable as he will get. It is felt that surgery should be done today in case the patient continues to decompensate. This can be attempted laparoscopically, he has a surgical history so adhesions could be significant and necessitated an open surgery. I will arrange at this afternoon.
[2017-08-03] MEDS: CARVEDILOL 3.125 MG TAB PO SCH (11:37)
[2017-08-03 11:47] LABS: Glucose,Whole Blood 110 mg/dL (75-99)
[2017-08-03 13:09] LABS: Hemoglobin A1C 6.3 % (4.0-6.0)
[2017-08-03] MEDS ORDERED: METHYLENE BLUE 10 MG/ML (10 ML VIAL) ONE (13:31)
[2017-08-03] MEDS ORDERED: SODIUM CHLORIDE 0.9% 1,000 ML IV ONE (13:31)
[2017-08-03] MEDS ORDERED: MIDAZOLAM 2 MG/2 ML VIAL ONE (13:31)
[2017-08-03] MEDS ORDERED: fentaNYL (PF) 50 MCG/ML 2 ML AMP ONE (13:31)
[2017-08-03] MEDS ORDERED: ROCURONIUM BROMIDE 10 MG/ML 10 ML VIAL IV ONE (13:31)
--- NOTE | 2017-08-03 13:33 | PN ---
PROGRESS NOTE DATE OF SERVICE: 08/03/2017. REASON FOR FOLLOWUP: A gram-negative sepsis with acute cholecystitis. INTERVAL HISTORY: The patient is afebrile. He is hemodynamically stable not on any pressor support. He is scheduled for a laparoscopic cholecystectomy this afternoon by Surgery and a cholecystostomy tube could not be placed because of the interposition of the colon between the gallbladder and the skin. He is currently on the vent and unable to provide any history. EXAMINATION: Blood pressure 126/55 with a pulse of 59, temperature 98.7. He is 96% on 40% FiO2. General description is an elderly male lying in bed in no distress. RESPIRATORY SYSTEM: Unlabored breathing with decreased breath sounds in the bases. No wheeze. HEART: S1, S2. Regular rate and rhythm. ABDOMEN: Soft, no tenderness. No rigidity. EXTREMITIES: No edema feet. LABS: Hemoglobin 12.8, white count 8.0, BUN of 18, creatinine was 0.10. DIAGNOSTIC IMPRESSION AND PLAN: Patient with gram-negative sepsis. Source is likely acute cholecystitis for cholecystectomy this afternoon. Patient maintained on Zosyn while waiting for the culture to finalize. Continue supportive care. MMODL / IJN: [id number] /
[2017-08-03] MEDS ORDERED: LIDOCAINE 2%-EPI 1:200,000 20 ML VIAL SQ ONE (13:47)
[2017-08-03] MEDS ORDERED: BUPIVACAINE (PF) 0.25% 30 ML VIAL SQ ONE (13:47)
[2017-08-03] MEDS ORDERED: METHYLENE BLUE 10 MG/ML (10 ML VIAL) MISCELLANE ONE (15:07)
[2017-08-03] MEDS ORDERED: GELATIN SPONGE,ABSORB (LARGE) 1 EACH SPONGE TOPICAL ONE (15:13)
--- NOTE | 2017-08-03 15:51 | P.OP ---
Date of Procedure: 08/03/17 Preoperative Diagnosis: Acute cholecystitis, sepsis Postoperative Diagnosis: Acute cholecystitis, sepsis, empyema of the gallbladder Procedure(s) Performed: Laparoscopy, open cholecystectomy Anesthesia: MINNIE Surgeon: Arely Camarillo Manager Park #1: Parth Zacarias Estimated Blood Loss (ml): 150 Pathology: other (Gallbladder) Condition: stable Disposition: ICU Indications for Procedure: The patient presented with signs of sepsis. He subsequently developed respiratory failure. His liver function tests were normal. A computed tomography scan of the abdomen was done showing markedly distention of the gallbladder. Discussion was held with radiology regarding percutaneous cholecystostomy tube however he was not a candidate due to the interposition of the colon and the gallbladder. Operative Findings: Acute cholecystitis with empyema of the gallbladder. It adhesions of the omentum to the midline from previous surgery Description of Procedure: The patient was taken to the operative suite where he is prepped and draped in the usual sterile manner under general endotracheal anesthetic. An incision was made to the right of the umbilicus. The anterior fascia was grasped and incised. The muscle was split. The posterior fascia and peritoneum were incised. A's finger sweep was carried out. A balloon trocar was placed and pneumoperitoneum was established with CO2 gas. The liver and gallbladder were examined. The transverse colon was densely adhered to the gallbladder and did not appear amenable to laparoscopic removal. Therefore the laparoscopic instruments and trochars were removed. The abdomen was entered through a right subcostal incision. Small bleeding points were controlled with electrocautery. A retractor was placed. Tediously the transverse colon were sharply dissected off the wall of the gallbladder. Dissection was carried out posteriorly. There was some adhesion of the duodenum to the gallbladder. The cystic duct and common bile duct could not be clearly identified. Therefore the gallbladder was brought down in a retrograde manner using cautery. The gallbladder was entered and there was noted to be a significant amount of purulence in the gallbladder itself. Cultures were obtained. Small bleeding points at the liver were controlled with electrocautery. As dissection was being carried out towards the cystic artery and duct there was noted to be an abscess external to the gallbladder which was heading towards the duodenum. The cystic artery was then able to be dissected free. It was suture ligated on the medial aspect and a Ligaclip was placed. The cystic duct was able to be identified. It was suture ligated and then clipped. The artery and duct were then transected and the gallbladder was passed off. The liver bed was then irrigated and piece of Gelfoam was packed in the liver bed. The area where the abscess was encroaching on the duodenum was examined. The wall appeared to be intact. To ensure that it was 500 mL's of sterile water with methylene blue was instilled via the nasogastric tube. The stomach and duodenum distended with no leakage of blue fluid. The fluid was then aspirated from the stomach. The liver bed was reexamined and there was small amount of oozing so piece of Gelfoam was placed. A 10 mm drain was placed allowed to lay in the liver bed. The posterior fascia and peritoneum were closed with 1 PDS. The anterior fascial layers were closed with 1 PDS. The skin incisions were closed with barbara. A sterile dressing was applied. He tolerated the procedure without difficulty and was taken recovery room in satisfactory condition. According to or personnel, ARE correct.
[2017-08-03 17:19] LABS: Glucose,Whole Blood 98 mg/dL (75-99)
[2017-08-03] MEDS: MORPHINE SULFATE 4 MG/ML SYRINGE IVP PRN ×2 (18:50→20:59)
--- NOTE | 2017-08-03 18:57 | PN ---
PROGRESS NOTE DATE OF SERVICE: 08/03/2017 This 81-year-old gentleman who was admitted with a fever, feeling shaky, cough and sputum also had features of sepsis. Patient developed acute respiratory failure and the patient is mechanically ventilated and intubated at this time. On CT scan of the abdomen and pelvis the patient had features of acute cholecystitis. The patient is mechanically intubated. Dr. Camarillo performed laparoscopy and open cholecystectomy. Patient was apparently not a candidate for percutaneous cholecystostomy tube because of interposition of colon and the gallbladder. Past medical history reviewed. Review of systems could not be taken; the patient is mechanically intubated. CURRENT MEDICATIONS: 1. Tylenol 650 q.6 p.r.n. 2. DuoNeb q.i.d. and p.r.n. 3. Zyloprim 300 mg at bedtime. 4. Amiodarone drip. 5. Aspirin. 6. Symbicort 160/4.5 b.i.d. 7. Peridex. 8. Lovenox 40 mg subcutaneously daily. 9. Pepcid 20 mg IV b.i.d. 10.Ativan. 11.Replacement protocols. 12.Zosyn 3.375 IV q.8. 13.Aldactone 25 mg p.o. daily. PHYSICAL EXAMINATION: Patient is mechanically sedated. Pulse 61, blood pressure 133/58, respiration 18, temperature normal, pulse ox 94% on 40% mechanical ventilation. Vent settings are noted. HEENT: Conjunctivae normal. Oral mucosa moist. NECK: No jugular venous distention. No carotid bruit. No lymph node enlargement. CARDIOVASCULAR SYSTEM: S1, S2 muffled. No S3. No S4. RESPIRATORY SYSTEM: Breath sounds diminished at the bases. Scattered rhonchi and crackles. ABDOMEN: Soft. Status post surgery. LEGS: No edema. No swelling. NERVOUS SYSTEM: No focal deficit. LABS: Hemoglobin 12.8. Accu-Cheks 109. Albumin is 2.7. ASSESSMENT: 1. Acute cholecystitis with possible sepsis as well as acute hypoxic respiratory failure, status post mechanical ventilation and status post laparoscopic cholecystectomy. 2. Possible right middle lobe pneumonia. 3. Anemia of chronic disease. 4. History of congestive heart failure with chronic systolic dysfunction, ejection fraction 35% to 40%, with possibly cardiomyopathy. 5. History of cerebrovascular accident, transient ischemic attack. 6. Hypertension. 7. Hyperlipidemia. 8. History of myocardial infarction. 9. History of gout. 10.History of nephrolithiasis. 11.History of coronary artery disease, coronary artery bypass grafting, stent. RECOMMENDATIONS AND DISCUSSION: I recommend to continue current medication, continue symptomatic treatment. Otherwise at this time I would recommend continuing with the IV antibiotics, mechanical ventilation per Pulmonary. Guarded prognosis because of multiple complex medical issues. Resume the rest of the medications. See orders for further details. Further recommendations to follow. MMODL / IJN: [id number] /
[2017-08-03 21:09] LABS: Glucose,Whole Blood 121 mg/dL (75-99)
[2017-08-03] MEDS: LORazepam 2 MG/ML INJ IV PRN (23:39)
[2017-08-03 23:50] LABS: Glucose,Whole Blood 89 mg/dL (75-99)
[2017-08-04] MEDS ORDERED: ACETAMINOPHEN IV (For NPO) 1,000 MG in EMPTY BAG 1 BAG IVPB PRN (00:03)
[2017-08-04] MEDS: PIPERACILLIN-TAZOBACTAM 3.375 GM in DEXTROSE/WATER 1 50ML.BAG IVPB SCH ×2 (00:17→08:49)
[2017-08-04] MEDS: PROPOFOL 1,000 MG in EMPTY BAG 1 BAG IV SCH ×5 (00:48→20:48)
[2017-08-04] MEDS ORDERED: SODIUM CHLORIDE 0.9% 500 ML IV ONE (00:52)
[2017-08-04] MEDS: AMIODARONE 450 MG in DEXTROSE 5% IN WATER 250 ML IV SCH ×2 (02:56)
[2017-08-04] MEDS: D5-0.45% NACL WITH KCL 20MEQ/L 1,000 ML IV SCH ×3 (02:57→21:36)
[2017-08-04 05:10] LABS: ABG Base Excess -2.9 mmol/L; ABG HCO3 23 mmol/L (21-25); ABG Oxygen Saturation 97.4 % (94-97); ABG PCO2 46 mmHg (35-45); ABG PH 7.32 (7.35-7.45); ABG PO2 104 mmHg (83-108); ABG TCO2 25 mmol/L (19-24)
[2017-08-04 05:16] LABS: Basophils % (A) 0 %; Eosinophils # (A) 0.1 k/uL (0-0.7); Eosinophils % (A) 1 %; HCT 36.6 % (39.0-53.0); HGB 11.8 gm/dL (13.0-17.5); Lymphocytes # (A) 1.5 k/uL (1.0-4.8); Lymphocytes % (A) 17 %; MCH 32.6 pg (25.0-35.0); MCHC 32.2 g/dL (31.0-37.0); MCV 101.3 fL (80.0-100.0); Macrocytosis Slight; Mean Platelet Volume 8.4; Monocytes # (A) 0.5 k/uL (0-1.0); Monocytes % (A) 6 %; Neutrophils # (A) 6.8 k/uL (1.3-7.7); Neutrophils % (A) 76 %; Platelet Count 160 k/uL (150-450); RBC 3.62 m/uL (4.30-5.90); RDW 14.2 % (11.5-15.5)
[2017-08-04 05:25] LABS: Calcium 8.5 mg/dL (8.4-10.2); Phosphorus 4.3 mg/dL (2.5-4.5); Potassium 4.2 mmol/L (3.5-5.1)
--- NOTE | 2017-08-04 06:59 | XR ---
EXAMINATION TYPE: XR chest 1V DATE OF EXAM: 08/04/2017 HISTORY: ICU intubation. REFERENCE: Previous study dated 08/03/2017. FINDINGS: There has been a midline sternotomy. The patient is ET tube and NG tube remain in place, unchanged in appearance. There is a right interna l jugular catheter in place. Its tip is at the cavoatrial junction. The heart is mildly enlarged. There is left-sided pleural effusion. There is bibasilar airspace disease, worse on the left than the right. IMPRESSION: 1. CONTINUING BILATERAL AIRSPACE DISEASE. 2. BILATERAL EFFUSIONS, WORSE ON THE LEFT THAN THE RIGHT. 3. CARDIOMEGALY.
[2017-08-04 07:17] LABS: Glucose,Whole Blood 153 mg/dL (75-99)
[2017-08-04] MEDS: INSULIN ASPART 100 UNIT/ML 1 ML 10 ML VIAL SQ SCH ×3 (07:18→17:57)
[2017-08-04] MEDS: IPRATROPIUM-ALBUTEROL 3 ML NEB INHALATION SCH ×4 (07:18→18:58)
[2017-08-04] MEDS: SYMBICORT 160-4.5 MCG INHALER INHALATION SCH ×2 (07:19→18:58)
[2017-08-04] MEDS: CHLORHEXIDINE GLUCONATE 15 ML CUP MUCOUS MEM SCH ×2 (08:49→21:36)
[2017-08-04] MEDS: ENOXAPARIN 40 MG/0.4 ML SYRINGE SQ SCH (08:49)
[2017-08-04] MEDS: ASPIRIN 81 MG PO SCH (08:50)
[2017-08-04] MEDS: FAMOTIDINE 20 MG/2 ML VIAL IV SCH ×2 (08:50→21:36)
[2017-08-04] MEDS: SPIRONOLACTONE 25 MG TAB PO SCH (08:50)
[2017-08-04 12:07] LABS: Glucose,Whole Blood 154 mg/dL (75-99)
[2017-08-04] MEDS: AMPICILLIN-SULBACTAM 3 GM in SODIUM CHLORIDE 0.9% 100 ML IVPB SCH ×2 (12:51→18:20)
--- NOTE | 2017-08-04 13:32 | P.PN ---
Subjective Progress Note Date: 08/04/17 Principal diagnosis: Status post cholecystectomy for empyema of the gallbladder The patient's postoperative day 1 from an open cholecystectomy. He did have some levofed overnight which has been weaned. He received a drug holiday this morning and was alert however develop some hypertension with that. Having adequate urine output. XAVI is serosanguineous. Objective - Vital Signs Vital signs: Vital Signs Temp 98.0 F 08/04/17 12:00 Pulse 74 08/04/17 13:00 Resp 18 08/04/17 13:00 BP 102/59 08/03/17 13:00 Pulse Ox 100 08/04/17 13:00 Intake & Output 08/03/17 08/04/17 08/04/17 18:59 06:59 18:59 Intake Total 662.134 6555.853 1247.662 Output Total 680 850 458 Balance 34.969 1051.853 789.662 Weight 114.4 kg 113.4 kg Intake: IV 555.0 1356.2 1090.2 ACETAMINOPHEN IV (For NPO 100 ) 1,000 mg In Empty Bag 1 bag @ 400 mls/hr IVPB Q6HR PRN Rx#:[id number] Amiodarone 450 mg In 183.7 100.2 Dextrose 5% in Water 250 ml @ 0.5 MG/MIN 16.66 mls /hr IV .Q15H1M [facility] Rx#: [id number] Ampicillin-Sulbactam 3 gm 100 In Sodium Chloride 0.9% 100 ml @ 100 mls/hr IVPB Q6HR [facility] Rx#:[id number] D5-0.45% NaCl with KCl 300 700 20Meq/l 1,000 ml @ 100 mls/hr IV .Q10H [facility] Rx#: [id number] Piperacillin-Tazobactam 3 75.0 62.5 50 .375 gm In Dextrose/Water 1 50ml.bag @ 12.5 mls/hr IVPB Q8HR [facility] Rx#: [id number] Sodium Chloride 0.9% 1, 180 710 140 000 ml @ 20 mls/hr IV . Q24H [facility] Rx#:[id number] Intake, IV Titration 159.969 545.653 157.462 Amount Amiodarone 450 mg In 250 Dextrose 5% in Water 250 ml @ 0.5 MG/MIN 16.66 mls /hr IV .Q15H1M [facility] Rx#: [id number] Norepinephrin 4 mg-0.9% 62.25 36.5 Ns Pmx 4 mg In 250 ml @ Titrate IV .Q0M [facility] Rx#: [id number] Propofol 1,000 mg In 159.969 233.403 120.962 Empty Bag 1 bag @ Titrate IV .Q0M [facility] Rx#: [id number] Output: Gastric Drainage 200 50 Drainage 90 20 Left Lower Lateral 90 Abdomen Right Lower Lateral 20 Abdomen Urine 530 560 388 Estimated Blood Loss 150 Other: Voiding Method Indwelling Catheter Indwelling Catheter Indwelling Catheter # Voids 2 ABP, PAP, CO, CI - Last Documented Arterial Blood Pressure 135/56 - Constitutional Constitutional Comment(s): Currently intubated General appearance: Present: cooperative - Respiratory Respiratory: bilateral: CTA, diminished (At the bases) - Gastrointestinal General gastrointestinal: Present: soft Localized gastrointestinal: surgical scar: RUQ (Dressing is intact clean and dry. XAVI is serosanguineous.) - Labs CBC & Chem 7: 08/04/17 05:10 08/04/17 05:10 Labs: Abnormal Lab Results - Last 24 Hours (Table) 08/02/17 08/03/17 08/04/17 Range/Units 04:30 21:07 05:10 RBC 3.62 L (4.30-5.90) m/uL Hgb 11.8 L (13.0-17.5) gm/dL Hct 36.6 L (39.0-53.0) % MCV 101.3 H (80.0-100.0) fL Chloride (98-107) mmol/L Glucose (74-99) mg/dL POC Glucose (mg/dL) 121 H (75-99) mg/dL Hemoglobin A1c 6.3 H (4.0-6.0) % 08/04/17 08/04/17 08/04/17 Range/Units 05:10 07:16 12:05 RBC (4.30-5.90) m/uL Hgb (13.0-17.5) gm/dL Hct (39.0-53.0) % MCV (80.0-100.0) fL Chloride 108 H (98-107) mmol/L Glucose 160 H (74-99) mg/dL POC Glucose (mg/dL) 153 H 154 H (75-99) mg/dL Hemoglobin A1c (4.0-6.0) % Microbiology - Last 24 Hours (Table) 08/03/17 10:17 Urine Culture - Final Urine,Catheterized 08/02/17 23:20 Urine Culture - Final Urine,Catheterized 08/03/17 15:30 Gram Stain - Preliminary Abdomen Wound Culture - Preliminary 08/03/17 15:30 Anaerobic Culture - Preliminary Gallbladder 08/01/17 22:55 Blood Culture Gram Stain - Final Blood Blood Culture - Final Escherichia coli 08/02/17 11:57 Blood Culture - Preliminary Blood No Growth after 24 hours Assessment and Plan (1) Gram-negative sepsis with organ dysfunction Current Visit: Yes Status: Acute Code(s): A41.50 - GRAM-NEGATIVE SEPSIS, UNSPECIFIED; R65.20 - SEVERE SEPSIS WITHOUT SEPTIC SHOCK SNOMED Code(s): 006395557 (2) Cholecystitis Current Visit: Yes Status: Acute Code(s): K81.9 - CHOLECYSTITIS, UNSPECIFIED SNOMED Code(s): 68347429 (3) Coronary artery disease Current Visit: Yes Status: Acute Code(s): I25.10 - ATHSCL HEART DISEASE OF [place] CORONARY ARTERY W/O ANG PCTRS SNOMED Code(s): 68741367 (4) Systolic heart failure Current Visit: Yes Status: Acute Code(s): I50.20 - UNSPECIFIED SYSTOLIC ( CONGESTIVE) HEART FAILURE SNOMED Code(s): 514763707 (5) Respiratory failure Current Visit: Yes Status: Acute Code(s): J96.90 - RESPIRATORY FAILURE, UNSP , UNSP W HYPOXIA OR HYPERCAPNIA SNOMED Code(s): 113688441 Plan: Continue IV antibiotics. We'll check the culture and sensitivity. The ventilators being managed by pulmonary. Currently the patient surgically stable. If he is weaned from the ventilator today, the nasogastric tube can be discontinued.
--- NOTE | 2017-08-04 13:52 | P.PN ---
Subjective Progress Note Date: 08/04/17 This is a 81-year-old gentleman who was admitted to the hospital with fever. He was having nonsustained V. tach and patient was started on IV amiodarone. Subsequently was found to have evidence of cholecystitis. Patient went into acute pulmonary edema. Patient is currently intubated. Apparently patient is neurologically stable. His possible that patient may be extubated today. We will discontinue IV amiodarone and watch. We'll restart amiodarone if patient has any recurrence of V. tach. Patient is having bowel sounds. Chest x-ray shows some bilateral infiltrates and the base. Cardiomegaly. No definite CHF. Objective - Vital Signs Vital signs: Vital Signs Temp 98.0 F 08/04/17 12:00 Pulse 74 08/04/17 13:00 Resp 18 08/04/17 13:00 BP 102/59 08/03/17 13:00 Pulse Ox 100 08/04/17 13:00 Intake & Output 08/03/17 08/04/17 08/04/17 18:59 06:59 18:59 Intake Total 133.338 5173.853 1247.662 Output Total 680 850 458 Balance 34.969 1051.853 789.662 Weight 114.4 kg 113.4 kg Intake: IV 555.0 1356.2 1090.2 ACETAMINOPHEN IV (For NPO 100 ) 1,000 mg In Empty Bag 1 bag @ 400 mls/hr IVPB Q6HR PRN Rx#:[id number] Amiodarone 450 mg In 183.7 100.2 Dextrose 5% in Water 250 ml @ 0.5 MG/MIN 16.66 mls /hr IV .Q15H1M [facility] Rx#: [id number] Ampicillin-Sulbactam 3 gm 100 In Sodium Chloride 0.9% 100 ml @ 100 mls/hr IVPB Q6HR [facility] Rx#:[id number] D5-0.45% NaCl with KCl 300 700 20Meq/l 1,000 ml @ 100 mls/hr IV .Q10H [facility] Rx#: [id number] Piperacillin-Tazobactam 3 75.0 62.5 50 .375 gm In Dextrose/Water 1 50ml.bag @ 12.5 mls/hr IVPB Q8HR [facility] Rx#: [id number] Sodium Chloride 0.9% 1, 180 710 140 000 ml @ 20 mls/hr IV . Q24H [facility] Rx#:[id number] Intake, IV Titration 159.969 545.653 157.462 Amount Amiodarone 450 mg In 250 Dextrose 5% in Water 250 ml @ 0.5 MG/MIN 16.66 mls /hr IV .Q15H1M [facility] Rx#: [id number] Norepinephrin 4 mg-0.9% 62.25 36.5 Ns Pmx 4 mg In 250 ml @ Titrate IV .Q0M [facility] Rx#: [id number] Propofol 1,000 mg In 159.969 233.403 120.962 Empty Bag 1 bag @ Titrate IV .Q0M [facility] Rx#: [id number] Output: Gastric Drainage 200 50 Drainage 90 20 Left Lower Lateral 90 Abdomen Right Lower Lateral 20 Abdomen Urine 530 560 388 Estimated Blood Loss 150 Other: Voiding Method Indwelling Catheter Indwelling Catheter Indwelling Catheter # Voids 2 ABP, PAP, CO, CI - Last Documented Arterial Blood Pressure 135/56 - Exam GENERAL EXAM: Patient intubated and sedated HEENT: Normocephalic. Normal reaction of pupils, equal size, normal range of extraocular motion. No erythema or exudates in the throat. NECK: No masses, no nuchal rigidity. CHEST: No chest wall deformity. LUNGS: Diminished breath sounds at bases. HEART: S1 and S2 normal with no audible mumurs or gallops. Regular rhythm, femorals equal on both sides.. ABDOMEN: Bowel sounds present SKIN: No rashes CENTRAL NERVOUS SYSTEM: Deferred EXTREMITIES: No cyanosis, clubbing or edema. - Labs CBC & Chem 7: 08/04/17 05:10 08/04/17 05:10 Labs: Abnormal Lab Results - Last 24 Hours (Table) 08/03/17 08/04/17 08/04/17 Range/Units 21:07 05:10 05:10 RBC 3.62 L (4.30-5.90) m/uL Hgb 11.8 L (13.0-17.5) gm/dL Hct 36.6 L (39.0-53.0) % MCV 101.3 H (80.0-100.0) fL Chloride 108 H (98-107) mmol/L Glucose 160 H (74-99) mg/dL POC Glucose (mg/dL) 121 H (75-99) mg/dL 08/04/17 08/04/17 Range/Units 07:16 12:05 RBC (4.30-5.90) m/uL Hgb (13.0-17.5) gm/dL Hct (39.0-53.0) % MCV (80.0-100.0) fL Chloride (98-107) mmol/L Glucose (74-99) mg/dL POC Glucose (mg/dL) 153 H 154 H (75-99) mg/dL Microbiology - Last 24 Hours (Table) 08/03/17 10:17 Urine Culture - Final Urine,Catheterized 08/02/17 23:20 Urine Culture - Final Urine,Catheterized 08/03/17 15:30 Gram Stain - Preliminary Abdomen Wound Culture - Preliminary 08/03/17 15:30 Anaerobic Culture - Preliminary Gallbladder 08/01/17 22:55 Blood Culture Gram Stain - Final Blood Blood Culture - Final Escherichia coli 08/02/17 11:57 Blood Culture - Preliminary Blood No Growth after 24 hours Assessment and Plan (1) Nonsustained ventricular tachycardia Current Visit: Yes Status: Acute Code(s): I47.2 - VENTRICULAR TACHYCARDIA SNOMED Code(s): 989201269 (2) Cholecystitis Current Visit: Yes Status: Acute Code(s): K81.9 - CHOLECYSTITIS, UNSPECIFIED SNOMED Code(s): 27332520 (3) Coronary artery disease Current Visit: Yes Status: Acute Code(s): I25.10 - ATHSCL HEART DISEASE OF [place] CORONARY ARTERY W/O ANG PCTRS SNOMED Code(s): 49113330 (4) Systolic heart failure Current Visit: Yes Status: Acute Code(s): I50.20 - UNSPECIFIED SYSTOLIC ( CONGESTIVE) HEART FAILURE SNOMED Code(s): 744942515 (5) Cardiomyopathy Current Visit: Yes Status: Acute Code(s): I42.9 - CARDIOMYOPATHY, UNSPECIFIED SNOMED Code(s): 74360352 Plan: We will continue current management. We'll discontinue amiodarone. Possible extubation today. Further recommendations depend upon clinical course.
--- NOTE | 2017-08-04 15:11 | P.PN ---
Subjective Progress Note Date: 08/04/17 (Critical care time 45 minutes) Principal diagnosis: Acute cholecystitis, empyema gallbladder Gram-negative sepsis and bacteremia, severe degree of ischemic cardiomyopathy with ejection fraction of 35%, acute on chronic systolic heart failure, acute cholecystitis, coronary artery disease, 08/04/2017, patient seen eval examined during the rounds patient remains sedated with propofol drip attempts to wean oxygen down has been unsuccessful overnight however able to bring down the oxygen to 40% from 50% PEEP has been lowered from 10-8, patient is now taken off a few fed drip ventilator setting is stable but the patient continued to manifest respiratory acidosis vent setting include assist control rate of 18 and tidal volume of 500 PEEP of 1060% oxygen respiratory rate is 12 he is calm arousable opens eyes follow simple commands family is present at the bedside care plan discussed with the family at length in light of severe degree of ischemic cardiomyopathy and very low ejection fraction patient will be kept on respirator for another 24-48 hours and slowly will be weaned, propofol is 15 mics, patient is getting Accu-Cheks with relatively stable sugars, currently patient is on D5 half normal saline 20 K meq of KCl with 100 mL an hour. Chest x-ray from this morning reviewed basal atelectasis and right-sided effusion and right lower lobe consolidation is seen , operative findings reviewed empyema gallbladder noted with severe acute cholecystitis culture reviewed my E. coli is sensitive to Unasyn 01/2018, patient seen and evaluated examined in the ICU this patient has been admitted into the hospital with generalized weakness syncope intermittent runs of V. tach with baseline history of severe degree of cardiomyopathy ischemic in nature with ejection fraction just 30-35% patient has a patchy infiltrate on the right side is being treated for pneumonia and sepsis, around 9 PM patient had episode of increasing shortness of breath increases abdominal pain a computed tomography scan of the abdominal and pelvis revealed presence of cholecystitis, general surgery has been consulted patient continued to increase respiratory distress eventually brought into the ICU where he was intubated patient was initially hypertensive however postintubation has episode of hypertension and earlier this morning required fluid resuscitation he did receive Lasix with some urine output yesterday currently Lasix is being held at it appears that patient is somewhat volume depleted culture results and reports are reviewed patient is growing gram-negative rods in the blood likely source being ascending cholangitis versus urinary tract infection with first being more likely urine culture however is pending urinalysis suggestive of inflammatory processes though. His ventilator settings reviewed currently patient is on assist control rate of 18 breathing 22 he is on tidal volume of 500, PEEP is 10 and FiO2 was initially 100% and gradually titrated down to 60% his lactic acid level was mildly elevated pro calcitonin was elevated to, currently patient is on amiodarone map is around 65-70 he is also on propofol 15 mics normal saline KVO amiodarone drip as 0.5 mg/m, patient is well sedated with current ventilator setting and sedation and also being treated with broad- spectrum antibiotics with IV Zosyn his medications are reviewed given that hypertension is present antihypertensive agents are being held, patient will need IV axis but triple-lumen catheter as well as and A-line consent are being obtained 81-year-old male with history of ischemic cardiomyopathy ejection fraction of 30 -35% has not been feeling well for the last 2-3 week with increasing shortness of breath patient does have a history of chronic lower extremity edema with a history of coronary artery disease status post CABG back in 1995. Patient for the last 2 weeks has not been feeling well has been more short of breath than usual has dry nonproductive cough as well which is intermittent off and on due to progressive increasing shortness of breath lately has been feeling weak as well with some intermittent episodes of dizziness lightheadedness patient came into the emergency department he did spike a fever up to 102, over his white cell count were normal chest x-ray showed borderline cardiomegaly and some early infiltrate in the right midlung field cannot be excluded. Patient about 2 weeks ago had a recent fall however he never lost his consciousness no seizure -like activity was seen patient appears to have developed nondisplaced left 10th rib fracture as seen on the rib x-rays. On arrival patient appeared to be in acute exacerbation of CHF likely acute on chronic systolic heart failure with elevated BNP of over 1800, in addition to above patient had echocardiogram which revealed ejection fraction 30% with inferior basal hypokinesia, patient also noted to have intermittent runs of PVCs and has been placed on IV amiodarone, this requestioning patient denies any chest pain or radiation of pain denies any sputum production denies any night sweats fever or chills he denies any seizure-like activity he did have intermittent dizziness usually turning around. He denies any bowel or bladder dysfunction he has chronic lower extremity trace edema. Objective - Vital Signs Vital signs: Vital Signs Temp 98.0 F 08/04/17 12:00 Pulse 71 08/04/17 15:00 Resp 20 08/04/17 15:00 BP 102/59 08/03/17 13:00 Pulse Ox 100 08/04/17 15:00 Intake & Output 08/03/17 08/04/17 08/04/17 18:59 06:59 18:59 Intake Total 958.824 9698.853 1532.195 Output Total 680 850 558 Balance 34.969 1051.853 974.195 Weight 114.4 kg 113.4 kg Intake: IV 555.0 1356.2 1330.2 ACETAMINOPHEN IV (For NPO 100 ) 1,000 mg In Empty Bag 1 bag @ 400 mls/hr IVPB Q6HR PRN Rx#:[id number] Amiodarone 450 mg In 183.7 100.2 Dextrose 5% in Water 250 ml @ 0.5 MG/MIN 16.66 mls /hr IV .Q15H1M [facility] Rx#: [id number] Ampicillin-Sulbactam 3 gm 100 In Sodium Chloride 0.9% 100 ml @ 100 mls/hr IVPB Q6HR [facility] Rx#:[id number] D5-0.45% NaCl with KCl 300 900 20Meq/l 1,000 ml @ 100 mls/hr IV .Q10H [facility] Rx#: [id number] Piperacillin-Tazobactam 3 75.0 62.5 50 .375 gm In Dextrose/Water 1 50ml.bag @ 12.5 mls/hr IVPB Q8HR [facility] Rx#: [id number] Sodium Chloride 0.9% 1, 180 710 180 000 ml @ 20 mls/hr IV . Q24H [facility] Rx#:[id number] Intake, IV Titration 159.969 545.653 201.995 Amount Amiodarone 450 mg In 250 Dextrose 5% in Water 250 ml @ 0.5 MG/MIN 16.66 mls /hr IV .Q15H1M [facility] Rx#: [id number] Norepinephrin 4 mg-0.9% 62.25 36.5 Ns Pmx 4 mg In 250 ml @ Titrate IV .Q0M [facility] Rx#: [id number] Propofol 1,000 mg In 159.969 233.403 165.495 Empty Bag 1 bag @ Titrate IV .Q0M [facility] Rx#: [id number] Output: Gastric Drainage 200 50 Drainage 90 20 Left Lower Lateral 90 Abdomen Right Lower Lateral 20 Abdomen Urine 530 560 488 Estimated Blood Loss 150 Other: Voiding Method Indwelling Catheter Indwelling Catheter Indwelling Catheter # Voids 2 ABP, PAP, CO, CI - Last Documented Arterial Blood Pressure 106/49 - Exam - Constitutional General appearance: average body habitus, sedated on full ventilator support- EENT Eyes: EOMI, PERRLA, normal appearance ENT: hard of hearing Ears: bilateral: normal - Neck Neck: normal ROM Carotids: right: bruit absent, bilateral: upstroke normal Thyroid: bilateral: normal size - Respiratory Respiratory: bilateral: CTA, few basal crackles bilaterally are present - Cardiovascular Heart sounds: normal: S1 and S2 no gallop rub or murmur - Gastrointestinal General gastrointestinal: normal bowel sounds, soft - Integumentary Integumentary: normal, normal turgor - Neurologic Sedated with propofol on full ventilator support - Musculoskeletal Musculoskeletal: gait normal, generalized weakness, strength equal bilaterally - Psychiatric Psychiatric: Sedated with propofol on full ventilator support - Labs CBC & Chem 7: 08/04/17 05:10 08/04/17 05:10 Labs: Abnormal Lab Results - Last 24 Hours (Table) 08/03/17 08/04/17 08/04/17 Range/Units 21:07 05:10 05:10 RBC 3.62 L (4.30-5.90) m/uL Hgb 11.8 L (13.0-17.5) gm/dL Hct 36.6 L (39.0-53.0) % MCV 101.3 H (80.0-100.0) fL Chloride 108 H (98-107) mmol/L Glucose 160 H (74-99) mg/dL POC Glucose (mg/dL) 121 H (75-99) mg/dL 08/04/17 08/04/17 Range/Units 07:16 12:05 RBC (4.30-5.90) m/uL Hgb (13.0-17.5) gm/dL Hct (39.0-53.0) % MCV (80.0-100.0) fL Chloride (98-107) mmol/L Glucose (74-99) mg/dL POC Glucose (mg/dL) 153 H 154 H (75-99) mg/dL Microbiology - Last 24 Hours (Table) 08/02/17 11:57 Blood Culture - Preliminary Blood No Growth after 48 hours 08/03/17 10:17 Urine Culture - Final Urine,Catheterized 08/02/17 23:20 Urine Culture - Final Urine,Catheterized 08/03/17 15:30 Gram Stain - Preliminary Abdomen Wound Culture - Preliminary 08/03/17 15:30 Anaerobic Culture - Preliminary Gallbladder 08/01/17 22:55 Blood Culture Gram Stain - Final Blood Blood Culture - Final Escherichia coli Assessment and Plan Assessment: Severe sepsis and septic shock related to gram-negative bacteremia Empyema gallbladder Acute cholangitis and gram-negative bacteremia Acute cholecystitis Early developing pneumonia in right lower lobe with effusion Acute hypoxic and hypercapnic respirator failure multifactorial related to above Spiking fever may be related to above however will follow up on urine culture results and report Acute exacerbation of CHF likely acute on chronic systolic heart failure with ejection fraction of 30-35% Status post fall with left 10th rib fracture Coronary artery disease and ischemic cardiomyopathy Intermittent episodes of PVCs and arrhythmia, patient is on amiodarone currently History of BPH Dyslipidemia hypertension hypertensive cardiovascular disease Plan: Gentle diuresis with intermittent fluid resuscitation as needed Slow weaning, lower down FiO2 to 40% as tolerated so as the PEEP is being lowered down to 8 will monitor observe clinical course closely May need vasopressors as blood pressure is marginal Hold antihypertensive agents will start resuming them as tolerated once blood pressure is better under control Medicine adjusted Continued DVT and peptic ulcer disease prophylaxis Electrolyte replacement as tolerated Surgical consultation Broad-spectrum antibiotics Breathing treatment Follow-up on urine and blood culture results and report Optimize cardiovascular therapy Repeat labs and x-ray tomorrow Patient will need a central line and A-line Critical care time spent 45 minutes Time with Patient: Greater than 30
--- NOTE | 2017-08-04 17:16 | PN ---
PROGRESS NOTE DATE OF SERVICE: 08/04/2017 This 81-year-old gentleman was admitted with acute cholecystis, sepsis and acute hypoxic respiratory failure. Patient underwent open cholecystectomy as well as laparoscopy by Dr. Camarillo. The patient is mechanically intubated. Patient is on 10 of PEEP and 50% FiO2. The patient is being closely monitored in the ICU at this time. The patient is on broad-spectrum IV antibiotics. Patient had CHF with chronic systolic dysfunction as well. Cardiology and Pulmonology are following the patient closely. The patient also had nonsustained ventricular tachycardia. Amiodarone has been initiated. The patient also had acute pulmonary edema. Past medical history reviewed. REVIEW OF SYSTEMS: CARDIOVASCULAR SYSTEM: As mentioned earlier. RESPIRATORY SYSTEM: As mentioned earlier. GI: As mentioned earlier. : No dysuria or retention. NERVOUS SYSTEM: No numbness, weakness. CURRENT MEDICATIONS: 1. Tylenol 650 q.6 p.r.n. 2. Tylenol p.r.n. 3. Zyloprim 300 mg at bedtime. 4. Unasyn 3 grams q.6. 5. Symbicort 160/4.5 two puffs b.i.d. 6. Lovenox 40 mg daily. 7. Replacement protocols. PHYSICAL EXAMINATION: Patient is alert, oriented x3. Pulse 71, blood pressure 106/49, respiration 20, temperature normal, pulse ox 100% on mechanical ventilation. Vent settings are noted. FiO2 40%. HEENT: Conjunctivae normal. Oral mucosa moist. NECK: No jugular venous distention. No carotid bruit. No lymph node enlargement. CARDIOVASCULAR SYSTEM: S1, S2 muffled. RESPIRATORY SYSTEM: Breath sounds diminished at the bases. A few scattered rhonchi and crackles. Expiratory wheezing also present. ABDOMEN: Soft. Mild diffuse distention. Status post surgery. LEGS: No edema. No swelling. NERVOUS SYSTEM: Patient is mechanically ventilated and sedated. SKIN: No ulcer, rash, bleeding. LABS: WBC 9, hemoglobin 11.8. Alkaline phosphatase is 176. ASSESSMENT: 1. Acute cholecystitis with possible sepsis as well as acute hypoxic respiratory failure, status post mechanical ventilation, status post laparoscopic cholecystectomy. 2. Possible right middle lobe pneumonia with Escherichia coli sepsis. 3. Possible acute urinary tract infection. 4. Anemia of chronic disease. 5. Congestive heart failure with acute on chronic systolic dysfunction, ejection fraction 35% to 40%, with cardiomyopathy. 6. History of cerebrovascular accident, transient ischemic attack. 7. Hypertension. 8. Hyperlipidemia. 9. History of myocardial infarction. 10.History of gout. 11.History of nephrolithiasis. 12.History of coronary artery disease, coronary artery bypass grafting, stent. RECOMMENDATIONS AND DISCUSSION: I recommend to continue current medications, continue with symptomatic treatment, continue with broad-spectrum IV antibiotics. Follow closely with multiple consultants. Continue with mechanical ventilation with Pulmonary. The current cultures are showing E coli from the blood. Currently the patient is on IV Unasyn. We will continue to monitor. Continue the bronchodilators. Continue the DVT prophylaxis. Overall prognosis is guarded because of multiple complex medical issues. Further recommendations to follow. MMODL / IJN: [id number] /
[2017-08-04 17:58] LABS: Glucose,Whole Blood 127 mg/dL (75-99)
[2017-08-04] MEDS: ALLOPURINOL 300 MG TAB PO SCH (21:28)
--- NOTE | 2017-08-04 22:58 | PN ---
PROGRESS NOTE DATE OF SERVICE: 08/04/2017 REASON FOR FOLLOWUP: Gram-negative sepsis secondary to acute cholecystitis. INTERVAL HISTORY: The patient is afebrile. The patient is status post open cholecystectomy done yesterday. He tolerated the procedure, currently on the vent, is not requiring any pressor support. No significant secretions through the ET. EXAMINATION: Blood pressure 137/53 with a pulse of 75, temperature 98.3. He is 100% on 40% FiO2. General description is an elderly male lying in bed in no distress. RESPIRATORY SYSTEM: Unlabored breathing. Clear to auscultation anteriorly. HEART: S1, S2. Regular rate and rhythm. ABDOMEN: Soft. Minimally distended. No guarding or rigidity. LABS: Hemoglobin is 11.8, white count of 9.0. BUN of 19, creatinine 1.21. E. coli in the blood was sensitive pathogen. DIAGNOSTIC IMPRESSION AND PLAN: Patient with Escherichia coli sepsis secondary to acute cholecystitis, status post open cholecystectomy. In view of the sensitivity pattern of this pathogen, antibiotic will be adjusted to Unasyn 3 g every 6 hours, watching clinical course closely. Multiple family members present at bedside. Their questions were answered. MMODL / IJN: [id number] /
[2017-08-05 00:19] LABS: Glucose,Whole Blood 106 mg/dL (75-99)
[2017-08-05] MEDS: AMPICILLIN-SULBACTAM 3 GM in SODIUM CHLORIDE 0.9% 100 ML IVPB SCH ×5 (00:19→23:22)
[2017-08-05] MEDS: SODIUM CHLORIDE 0.9% 1,000 ML IV SCH ×2 (00:19→23:23)
[2017-08-05] MEDS: INSULIN ASPART 100 UNIT/ML 1 ML 10 ML VIAL SQ SCH ×5 (00:19→23:26)
[2017-08-05] MEDS: PROPOFOL 1,000 MG in EMPTY BAG 1 BAG IV SCH ×4 (03:45→20:39)
[2017-08-05 04:21] LABS: ABG Base Excess -2.3 mmol/L; ABG HCO3 23 mmol/L (21-25); ABG Oxygen Saturation 97.1 % (94-97); ABG PCO2 40 mmHg (35-45); ABG PH 7.37 (7.35-7.45); ABG PO2 85 mmHg (83-108); ABG TCO2 24 mmol/L (19-24)
[2017-08-05 04:28] LABS: Basophils % (A) 0 %; Eosinophils # (A) 0.1 k/uL (0-0.7); Eosinophils % (A) 1 %; HCT 35.6 % (39.0-53.0); HGB 11.6 gm/dL (13.0-17.5); Lymphocytes # (A) 1.1 k/uL (1.0-4.8); Lymphocytes % (A) 18 %; MCH 32.6 pg (25.0-35.0); MCHC 32.7 g/dL (31.0-37.0); MCV 99.9 fL (80.0-100.0); Mean Platelet Volume 8.5; Monocytes # (A) 0.3 k/uL (0-1.0); Monocytes % (A) 5 %; Neutrophils # (A) 4.6 k/uL (1.3-7.7); Neutrophils % (A) 73 %; Platelet Count 136 k/uL (150-450); RBC 3.57 m/uL (4.30-5.90); RDW 14.1 % (11.5-15.5); WBC 6.3 k/uL (3.8-10.6)
[2017-08-05 04:37] LABS: Anion Gap 8 mmol/L; Blood Urea Nitrogen 13 mg/dL (9-20); Calcium 8.6 mg/dL (8.4-10.2); Carbon Dioxide 23 mmol/L (22-30); Chloride 110 mmol/L (98-107); Glucose 132 mg/dL (74-99); Phosphorus 3.1 mg/dL (2.5-4.5); Sodium 141 mmol/L (137-145)
[2017-08-05] MEDS: MORPHINE SULFATE 4 MG/ML SYRINGE IVP PRN ×4 (06:01→23:30)
[2017-08-05 06:24] LABS: Glucose,Whole Blood 121 mg/dL (75-99)
--- NOTE | 2017-08-05 06:43 | XR ---
EXAMINATION TYPE: XR chest 1V DATE OF EXAM: 08/05/2017 HISTORY: ICU intubation. REFERENCE: Previous study dated 08/04/2017. FINDINGS: The patient is ET tube remains in place, unchanged in appearance. The patient is NG tube wolfe s been withdrawn and now is in the proximal esophagus. There is a right internal jugular catheter in place. Its tip is in the superior vena cava. There has been a midline sternotomy. There is improved aeration at the left lung base. There does continue to be bibasilar airspace diseas e. The heart is not enlarged. Pleural spaces are clear IMPRESSION: 1. MALPOSITIONING OF THE PATIENT'S NG TUBE. 2. IMPROVED AERATION, LEFT LUNG BASE.
[2017-08-05] MEDS: SYMBICORT 160-4.5 MCG INHALER INHALATION SCH ×2 (07:37→19:14)
[2017-08-05] MEDS: IPRATROPIUM-ALBUTEROL 3 ML NEB INHALATION SCH ×4 (07:59→19:02)
[2017-08-05] MEDS: CHLORHEXIDINE GLUCONATE 15 ML CUP MUCOUS MEM SCH ×2 (08:42→20:17)
[2017-08-05] MEDS: FAMOTIDINE 20 MG/2 ML VIAL IV SCH ×2 (08:43→20:18)
[2017-08-05] MEDS: ENOXAPARIN 40 MG/0.4 ML SYRINGE SQ SCH (08:43)
[2017-08-05] MEDS: D5-0.45% NACL WITH KCL 20MEQ/L 1,000 ML IV SCH ×2 (09:44→20:17)
--- NOTE | 2017-08-05 10:38 | P.PN ---
Subjective Progress Note Date: 08/05/17 (Critical care time 35 minutes) Principal diagnosis: Acute cholecystitis, empyema gallbladder Gram-negative sepsis and bacteremia, severe degree of ischemic cardiomyopathy with ejection fraction of 35%, acute on chronic systolic heart failure, acute cholecystitis, coronary artery disease, 08/05/2017, patient seen eval reexamined during the rounds currently patient remains on full ventilator support with the assist control mode sed rate is 18 breathing 18, tidal volume is 550, 8 of PEEP, FiO2 is down to 40% patient remains on propofol drip which is gradually being titrated down as per plans for sedation holiday, labs reviewed medications reviewed care plan discussed with the surgical services patient is to be started on tube feed as per their recommendation, telemetry revealed presence of intermittent episodes of the nonsustained ventricular tachycardia as well as multiple PVCs patient has been on beta blockers and calcium channel blockers which were discontinued due to severe hypotension as blood pressure has been stabilized now and going up towards we'll resume those medications likely they will help those PVCs as well. We will defer cardiovascular services for initiation or maintenance of amiodarone. Patient is making adequate urine, chest x-ray laboratory data and medications reviewed noted repeat blood cultures have been negative so far ROM of white cell count is normalize arterial blood gases are adequate chest x-ray reviewed note is made of the NG tube improve aeration noted bilateral bases 08/04/2017, patient seen eval examined during the rounds patient remains sedated with propofol drip attempts to wean oxygen down has been unsuccessful overnight however able to bring down the oxygen to 40% from 50% PEEP has been lowered from 10-8, patient is now taken off a few fed drip ventilator setting is stable but the patient continued to manifest respiratory acidosis vent setting include assist control rate of 18 and tidal volume of 500 PEEP of 1060% oxygen respiratory rate is 12 he is calm arousable opens eyes follow simple commands family is present at the bedside care plan discussed with the family at length in light of severe degree of ischemic cardiomyopathy and very low ejection fraction patient will be kept on respirator for another 24-48 hours and slowly will be weaned, propofol is 15 mics, patient is getting Accu-Cheks with relatively stable sugars, currently patient is on D5 half normal saline 20 K meq of KCl with 100 mL an hour. Chest x-ray from this morning reviewed basal atelectasis and right-sided effusion and right lower lobe consolidation is seen , operative findings reviewed empyema gallbladder noted with severe acute cholecystitis culture reviewed my E. coli is sensitive to Unasyn 01/2018, patient seen and evaluated examined in the ICU this patient has been admitted into the hospital with generalized weakness syncope intermittent runs of V. tach with baseline history of severe degree of cardiomyopathy ischemic in nature with ejection fraction just 30-35% patient has a patchy infiltrate on the right side is being treated for pneumonia and sepsis, around 9 PM patient had episode of increasing shortness of breath increases abdominal pain a computed tomography scan of the abdominal and pelvis revealed presence of cholecystitis, general surgery has been consulted patient continued to increase respiratory distress eventually brought into the ICU where he was intubated patient was initially hypertensive however postintubation has episode of hypertension and earlier this morning required fluid resuscitation he did receive Lasix with some urine output yesterday currently Lasix is being held at it appears that patient is somewhat volume depleted culture results and reports are reviewed patient is growing gram-negative rods in the blood likely source being ascending cholangitis versus urinary tract infection with first being more likely urine culture however is pending urinalysis suggestive of inflammatory processes though. His ventilator settings reviewed currently patient is on assist control rate of 18 breathing 22 he is on tidal volume of 500, PEEP is 10 and FiO2 was initially 100% and gradually titrated down to 60% his lactic acid level was mildly elevated pro calcitonin was elevated to, currently patient is on amiodarone map is around 65-70 he is also on propofol 15 mics normal saline KVO amiodarone drip as 0.5 mg/m, patient is well sedated with current ventilator setting and sedation and also being treated with broad- spectrum antibiotics with IV Zosyn his medications are reviewed given that hypertension is present antihypertensive agents are being held, patient will need IV axis but triple-lumen catheter as well as and A-line consent are being obtained 81-year-old male with history of ischemic cardiomyopathy ejection fraction of 30 -35% has not been feeling well for the last 2-3 week with increasing shortness of breath patient does have a history of chronic lower extremity edema with a history of coronary artery disease status post CABG back in 1995. Patient for the last 2 weeks has not been feeling well has been more short of breath than usual has dry nonproductive cough as well which is intermittent off and on due to progressive increasing shortness of breath lately has been feeling weak as well with some intermittent episodes of dizziness lightheadedness patient came into the emergency department he did spike a fever up to 102, over his white cell count were normal chest x-ray showed borderline cardiomegaly and some early infiltrate in the right midlung field cannot be excluded. Patient about 2 weeks ago had a recent fall however he never lost his consciousness no seizure -like activity was seen patient appears to have developed nondisplaced left 10th rib fracture as seen on the rib x-rays. On arrival patient appeared to be in acute exacerbation of CHF likely acute on chronic systolic heart failure with elevated BNP of over 1800, in addition to above patient had echocardiogram which revealed ejection fraction 30% with inferior basal hypokinesia, patient also noted to have intermittent runs of PVCs and has been placed on IV amiodarone, this requestioning patient denies any chest pain or radiation of pain denies any sputum production denies any night sweats fever or chills he denies any seizure-like activity he did have intermittent dizziness usually turning around. He denies any bowel or bladder dysfunction he has chronic lower extremity trace edema. Objective - Vital Signs Vital signs: Vital Signs Temp 98.3 F 08/05/17 08:00 Pulse 82 08/05/17 09:00 Resp 18 08/05/17 09:00 BP 110/61 08/05/17 09:00 Pulse Ox 100 08/05/17 09:00 Intake & Output 08/04/17 08/05/17 08/05/17 18:59 06:59 18:59 Intake Total 2863.562 6809.948 407.873 Output Total 743 1625 150 Balance 1152.820 363.948 257.873 Weight 116.4 kg Intake: IV 1690.2 1730 360 Amiodarone 450 mg In 100.2 Dextrose 5% in Water 250 ml @ 0.5 MG/MIN 16.66 mls /hr IV .Q15H1M [facility] Rx#: [id number] Ampicillin-Sulbactam 3 gm 100 300 In Sodium Chloride 0.9% 100 ml @ 100 mls/hr IVPB Q6HR [facility] Rx#:[id number] D5-0.45% NaCl with KCl 1200 1200 300 20Meq/l 1,000 ml @ 100 mls/hr IV .Q10H [facility] Rx#: [id number] Piperacillin-Tazobactam 3 50 .375 gm In Dextrose/Water 1 50ml.bag @ 12.5 mls/hr IVPB Q8HR [facility] Rx#: [id number] Sodium Chloride 0.9% 1, 240 230 60 000 ml @ 20 mls/hr IV . Q24H [facility] Rx#:[id number] Intake, IV Titration 205.620 258.948 47.873 Amount Norepinephrin 4 mg-0.9% 40.125 Ns Pmx 4 mg In 250 ml @ Titrate IV .Q0M [facility] Rx#: [id number] Propofol 1,000 mg In 165.495 258.948 47.873 Empty Bag 1 bag @ Titrate IV .Q0M [facility] Rx#: [id number] Output: Gastric Drainage 50 50 Drainage 20 30 Right Lower Lateral 20 30 Abdomen Urine 673 1545 150 Other: Voiding Method Indwelling Catheter Indwelling Catheter Indwelling Catheter # Voids 2 ABP, PAP, CO, CI - Last Documented Arterial Blood Pressure 136/56 - Exam - Constitutional General appearance: average body habitus, sedated on full ventilator support- EENT Eyes: EOMI, PERRLA, normal appearance ENT: hard of hearing Ears: bilateral: normal - Neck Neck: normal ROM Carotids: right: bruit absent, bilateral: upstroke normal Thyroid: bilateral: normal size - Respiratory Respiratory: bilateral: CTA, few basal crackles bilaterally are present - Cardiovascular Heart sounds: normal: S1 and S2 no gallop rub or murmur - Gastrointestinal General gastrointestinal: normal bowel sounds, soft - Integumentary Integumentary: normal, normal turgor - Neurologic Sedated with propofol on full ventilator support - Musculoskeletal Musculoskeletal: gait normal, generalized weakness, strength equal bilaterally - Psychiatric Psychiatric: Sedated with propofol on full ventilator support - Labs CBC & Chem 7: 08/05/17 04:20 08/05/17 04:20 Labs: Abnormal Lab Results - Last 24 Hours (Table) 08/04/17 08/04/17 08/04/17 Range/Units 05:08 12:05 17:56 RBC (4.30-5.90) m/uL Hgb (13.0-17.5) gm/dL Hct (39.0-53.0) % Plt Count (150-450) k/uL ABG pH 7.32 L (7.35-7.45) ABG pCO2 46 H (35-45) mmHg ABG Total CO2 25 H (19-24) mmol/L ABG O2 Saturation 97.4 H (94-97) % Chloride (98-107) mmol/L Glucose (74-99) mg/dL POC Glucose (mg/dL) 154 H 127 H (75-99) mg/dL 08/05/17 08/05/17 08/05/17 Range/Units 00:18 04:00 04:20 RBC 3.57 L (4.30-5.90) m/uL Hgb 11.6 L (13.0-17.5) gm/dL Hct 35.6 L (39.0-53.0) % Plt Count 136 L (150-450) k/uL ABG pH (7.35-7.45) ABG pCO2 (35-45) mmHg ABG Total CO2 (19-24) mmol/L ABG O2 Saturation 97.1 H (94-97) % Chloride (98-107) mmol/L Glucose (74-99) mg/dL POC Glucose (mg/dL) 106 H (75-99) mg/dL 08/05/17 08/05/17 Range/Units 04:20 06:09 RBC (4.30-5.90) m/uL Hgb (13.0-17.5) gm/dL Hct (39.0-53.0) % Plt Count (150-450) k/uL ABG pH (7.35-7.45) ABG pCO2 (35-45) mmHg ABG Total CO2 (19-24) mmol/L ABG O2 Saturation (94-97) % Chloride 110 H (98-107) mmol/L Glucose 132 H (74-99) mg/dL POC Glucose (mg/dL) 121 H (75-99) mg/dL Microbiology - Last 24 Hours (Table) 08/02/17 21:58 Gram Stain - Final Sputum Sputum Culture - Final 08/03/17 15:30 Gram Stain - Preliminary Abdomen Wound Culture - Preliminary Gram Neg Bacilli 08/02/17 11:57 Blood Culture - Preliminary Blood No Growth after 48 hours 08/03/17 10:17 Urine Culture - Final Urine,Catheterized 08/02/17 23:20 Urine Culture - Final Urine,Catheterized Assessment and Plan Assessment: Intermittent runs of nonsustained ventricular tachycardia and multiple PVCs with stable electrolytes likely related to ischemic cardiomyopathy Severe sepsis and septic shock related to gram-negative bacteremia Empyema gallbladder Acute cholangitis and gram-negative bacteremia Acute cholecystitis Early developing pneumonia in right lower lobe with effusion Acute hypoxic and hypercapnic respirator failure multifactorial related to above Spiking fever may be related to above however will follow up on urine culture results and report Acute exacerbation of CHF likely acute on chronic systolic heart failure with ejection fraction of 30-35% Status post fall with left 10th rib fracture Coronary artery disease and ischemic cardiomyopathy Intermittent episodes of PVCs and arrhythmia, patient is on amiodarone currently History of BPH Dyslipidemia hypertension hypertensive cardiovascular disease Plan: We will resume Coreg continue to hold Norvasc for now defer utilization amiodarone to cardiovascular services Slow weaning, lower down FiO2 to 40% as tolerated so as the PEEP is being lowered down to 5 will monitor observe clinical course closely, will put patient on CPAP of 5 pressure support of 5 in next 24 hours with weaning trials continue sedation holidays as tolerated Observe off of vasopressors Medicine adjusted Continued DVT and peptic ulcer disease prophylaxis Electrolyte replacement as tolerated Surgical consultation recommendations reviewed Broad-spectrum antibiotics Breathing treatment Follow-up on urine and blood culture results and report Optimize cardiovascular therapy Repeat labs and x-ray tomorrow Patient will need a central line and A-line Critical care time spent 35 minutes
--- NOTE | 2017-08-05 11:33 | P.PN ---
Subjective Progress Note Date: 08/05/17 Principal diagnosis: Acute cholecystitis, sepsis, nonsustained V. tach This is a 81-year-old gentleman with history of ischemic cardiac myopathy who was admitted to the hospital with fever and not feeling well. He was noted to have episodes of nonsustained V. tach which were monomorphic. Subsequent evaluation was consistent with cholecystitis and sepsis. Patient had surgery. Patient is still intubated. Yesterday we stopped the amiodarone drip. So far. Patient hasn't had any recurrence of V. tach. His primary status being evaluated with a facility maintenance manager. At this point we'll keep him off the amiodarone unless patient has any recurrence of V. tach. His electrolytes are within normal limits Objective - Vital Signs Vital signs: Vital Signs Temp 98.3 F 08/05/17 08:00 Pulse 77 08/05/17 11:09 Resp 18 08/05/17 11:00 BP 110/61 08/05/17 09:00 Pulse Ox 100 08/05/17 11:00 Intake & Output 08/04/17 08/05/17 08/05/17 18:59 06:59 18:59 Intake Total 5156.334 4805.948 647.873 Output Total 743 1625 240 Balance 1152.820 363.948 407.873 Weight 116.4 kg Intake: IV 1690.2 1730 600 Amiodarone 450 mg In 100.2 Dextrose 5% in Water 250 ml @ 0.5 MG/MIN 16.66 mls /hr IV .Q15H1M [facility] Rx#: [id number] Ampicillin-Sulbactam 3 gm 100 300 In Sodium Chloride 0.9% 100 ml @ 100 mls/hr IVPB Q6HR [facility] Rx#:[id number] D5-0.45% NaCl with KCl 1200 1200 500 20Meq/l 1,000 ml @ 100 mls/hr IV .Q10H [facility] Rx#: [id number] Piperacillin-Tazobactam 3 50 .375 gm In Dextrose/Water 1 50ml.bag @ 12.5 mls/hr IVPB Q8HR [facility] Rx#: [id number] Sodium Chloride 0.9% 1, 240 230 100 000 ml @ 20 mls/hr IV . Q24H [facility] Rx#:[id number] Intake, IV Titration 205.620 258.948 47.873 Amount Norepinephrin 4 mg-0.9% 40.125 Ns Pmx 4 mg In 250 ml @ Titrate IV .Q0M [facility] Rx#: [id number] Propofol 1,000 mg In 165.495 258.948 47.873 Empty Bag 1 bag @ Titrate IV .Q0M [facility] Rx#: [id number] Output: Gastric Drainage 50 50 Drainage 20 30 Right Lower Lateral 20 30 Abdomen Urine 673 1545 240 Other: Voiding Method Indwelling Catheter Indwelling Catheter Indwelling Catheter # Voids 2 ABP, PAP, CO, CI - Last Documented Arterial Blood Pressure 112/47 - Exam GENERAL EXAM: Patient intubated and sedated HEENT: Normocephalic. Normal reaction of pupils, equal size, normal range of extraocular motion. No erythema or exudates in the throat. NECK: No masses, no nuchal rigidity. CHEST: No chest wall deformity. LUNGS: Diminished breath sounds at bases. HEART: S1 and S2 normal with no audible mumurs or gallops. Regular rhythm, femorals equal on both sides.. ABDOMEN: Bowel sounds present SKIN: No rashes CENTRAL NERVOUS SYSTEM: Deferred EXTREMITIES: No cyanosis, clubbing or edema. - Labs CBC & Chem 7: 08/05/17 04:20 08/05/17 04:20 Labs: Abnormal Lab Results - Last 24 Hours (Table) 08/04/17 08/04/17 08/04/17 Range/Units 05:08 12:05 17:56 RBC (4.30-5.90) m/uL Hgb (13.0-17.5) gm/dL Hct (39.0-53.0) % Plt Count (150-450) k/uL ABG pH 7.32 L (7.35-7.45) ABG pCO2 46 H (35-45) mmHg ABG Total CO2 25 H (19-24) mmol/L ABG O2 Saturation 97.4 H (94-97) % Chloride (98-107) mmol/L Glucose (74-99) mg/dL POC Glucose (mg/dL) 154 H 127 H (75-99) mg/dL 08/05/17 08/05/17 08/05/17 Range/Units 00:18 04:00 04:20 RBC 3.57 L (4.30-5.90) m/uL Hgb 11.6 L (13.0-17.5) gm/dL Hct 35.6 L (39.0-53.0) % Plt Count 136 L (150-450) k/uL ABG pH (7.35-7.45) ABG pCO2 (35-45) mmHg ABG Total CO2 (19-24) mmol/L ABG O2 Saturation 97.1 H (94-97) % Chloride (98-107) mmol/L Glucose (74-99) mg/dL POC Glucose (mg/dL) 106 H (75-99) mg/dL 08/05/17 08/05/17 Range/Units 04:20 06:09 RBC (4.30-5.90) m/uL Hgb (13.0-17.5) gm/dL Hct (39.0-53.0) % Plt Count (150-450) k/uL ABG pH (7.35-7.45) ABG pCO2 (35-45) mmHg ABG Total CO2 (19-24) mmol/L ABG O2 Saturation (94-97) % Chloride 110 H (98-107) mmol/L Glucose 132 H (74-99) mg/dL POC Glucose (mg/dL) 121 H (75-99) mg/dL Microbiology - Last 24 Hours (Table) 08/02/17 21:58 Gram Stain - Final Sputum Sputum Culture - Final 08/03/17 15:30 Gram Stain - Preliminary Abdomen Wound Culture - Preliminary Gram Neg Bacilli 08/02/17 11:57 Blood Culture - Preliminary Blood No Growth after 48 hours 08/03/17 10:17 Urine Culture - Final Urine,Catheterized 08/02/17 23:20 Urine Culture - Final Urine,Catheterized Assessment and Plan (1) Nonsustained ventricular tachycardia Current Visit: Yes Status: Acute Code(s): I47.2 - VENTRICULAR TACHYCARDIA SNOMED Code(s): 487524413 (2) Cholecystitis Current Visit: Yes Status: Acute Code(s): K81.9 - CHOLECYSTITIS, UNSPECIFIED SNOMED Code(s): 62650247 (3) Coronary artery disease Current Visit: Yes Status: Acute Code(s): I25.10 - ATHSCL HEART DISEASE OF [place] CORONARY ARTERY W/O ANG PCTRS SNOMED Code(s): 14729170 (4) Systolic heart failure Current Visit: Yes Status: Acute Code(s): I50.20 - UNSPECIFIED SYSTOLIC ( CONGESTIVE) HEART FAILURE SNOMED Code(s): 993571121 (5) Cardiomyopathy Current Visit: Yes Status: Acute Code(s): I42.9 - CARDIOMYOPATHY, UNSPECIFIED SNOMED Code(s): 18539618 Plan: Continue current management. No amiodarone at this time. If patient ANY recurrence of V. tach will be initiated amiodarone drip. Rest of the management as for the tub attendant
[2017-08-05 12:19] LABS: Glucose,Whole Blood 128 mg/dL (75-99)
--- NOTE | 2017-08-05 12:52 | P.PN ---
Subjective Progress Note Date: 08/05/17 Principal diagnosis: Status post cholecystectomy for empyema of the gallbladder The patient's postoperative day 2 open cholecystectomy for empyema of the gallbladder. He had a trial of sedation holiday this morning. He began to be very hypertensive. He was responding appropriately. He'll be maintained on the ventilator at least overnight. Family was at bedside. Objective - Vital Signs Vital signs: Vital Signs Temp 98.3 F 08/05/17 08:00 Pulse 80 08/05/17 11:25 Resp 18 08/05/17 11:00 BP 110/61 08/05/17 09:00 Pulse Ox 100 08/05/17 11:55 Intake & Output 08/04/17 08/05/17 08/05/17 18:59 06:59 18:59 Intake Total 8515.556 8516.948 647.873 Output Total 743 1625 240 Balance 1152.820 363.948 407.873 Weight 116.4 kg Intake: IV 1690.2 1730 600 Amiodarone 450 mg In 100.2 Dextrose 5% in Water 250 ml @ 0.5 MG/MIN 16.66 mls /hr IV .Q15H1M [facility] Rx#: [id number] Ampicillin-Sulbactam 3 gm 100 300 In Sodium Chloride 0.9% 100 ml @ 100 mls/hr IVPB Q6HR [facility] Rx#:[id number] D5-0.45% NaCl with KCl 1200 1200 500 20Meq/l 1,000 ml @ 100 mls/hr IV .Q10H [facility] Rx#: [id number] Piperacillin-Tazobactam 3 50 .375 gm In Dextrose/Water 1 50ml.bag @ 12.5 mls/hr IVPB Q8HR [facility] Rx#: [id number] Sodium Chloride 0.9% 1, 240 230 100 000 ml @ 20 mls/hr IV . Q24H [facility] Rx#:[id number] Intake, IV Titration 205.620 258.948 47.873 Amount Norepinephrin 4 mg-0.9% 40.125 Ns Pmx 4 mg In 250 ml @ Titrate IV .Q0M [facility] Rx#: [id number] Propofol 1,000 mg In 165.495 258.948 47.873 Empty Bag 1 bag @ Titrate IV .Q0M [facility] Rx#: [id number] Output: Gastric Drainage 50 50 Drainage 20 30 Right Lower Lateral 20 30 Abdomen Urine 673 1545 240 Other: Voiding Method Indwelling Catheter Indwelling Catheter Indwelling Catheter # Voids 2 ABP, PAP, CO, CI - Last Documented Arterial Blood Pressure 112/47 - Constitutional Constitutional Comment(s): Intubated, does respond to tactile stimuli. General appearance: Present: cooperative - Respiratory Respiratory: bilateral: CTA - Cardiovascular Rhythm: regular - Gastrointestinal General gastrointestinal: Present: decreased bowel sounds, soft Localized gastrointestinal: surgical scar: diffuse (Incisions are healing without cellulitis. XAVI is serosanguineous. No obvious bile is seen) - Labs CBC & Chem 7: 08/05/17 04:20 08/05/17 04:20 Labs: Abnormal Lab Results - Last 24 Hours (Table) 08/04/17 08/04/17 08/05/17 Range/Units 05:08 17:56 00:18 RBC (4.30-5.90) m/uL Hgb (13.0-17.5) gm/dL Hct (39.0-53.0) % Plt Count (150-450) k/uL ABG pH 7.32 L (7.35-7.45) ABG pCO2 46 H (35-45) mmHg ABG Total CO2 25 H (19-24) mmol/L ABG O2 Saturation 97.4 H (94-97) % Chloride (98-107) mmol/L Glucose (74-99) mg/dL POC Glucose (mg/dL) 127 H 106 H (75-99) mg/dL 08/05/17 08/05/17 08/05/17 Range/Units 04:00 04:20 04:20 RBC 3.57 L (4.30-5.90) m/uL Hgb 11.6 L (13.0-17.5) gm/dL Hct 35.6 L (39.0-53.0) % Plt Count 136 L (150-450) k/uL ABG pH (7.35-7.45) ABG pCO2 (35-45) mmHg ABG Total CO2 (19-24) mmol/L ABG O2 Saturation 97.1 H (94-97) % Chloride 110 H (98-107) mmol/L Glucose 132 H (74-99) mg/dL POC Glucose (mg/dL) (75-99) mg/dL 08/05/17 08/05/17 Range/Units 06:09 12:18 RBC (4.30-5.90) m/uL Hgb (13.0-17.5) gm/dL Hct (39.0-53.0) % Plt Count (150-450) k/uL ABG pH (7.35-7.45) ABG pCO2 (35-45) mmHg ABG Total CO2 (19-24) mmol/L ABG O2 Saturation (94-97) % Chloride (98-107) mmol/L Glucose (74-99) mg/dL POC Glucose (mg/dL) 121 H 128 H (75-99) mg/dL Microbiology - Last 24 Hours (Table) 08/02/17 21:58 Gram Stain - Final Sputum Sputum Culture - Final 08/03/17 15:30 Gram Stain - Preliminary Abdomen Wound Culture - Preliminary Gram Neg Bacilli 08/02/17 11:57 Blood Culture - Preliminary Blood No Growth after 48 hours 08/03/17 10:17 Urine Culture - Final Urine,Catheterized 08/02/17 23:20 Urine Culture - Final Urine,Catheterized Assessment and Plan (1) Gram-negative sepsis with organ dysfunction Current Visit: Yes Status: Acute Code(s): A41.50 - GRAM-NEGATIVE SEPSIS, UNSPECIFIED; R65.20 - SEVERE SEPSIS WITHOUT SEPTIC SHOCK SNOMED Code(s): 337669616 (2) Cholecystitis Current Visit: Yes Status: Acute Code(s): K81.9 - CHOLECYSTITIS, UNSPECIFIED SNOMED Code(s): 11901487 (3) Empyema of gallbladder Current Visit: Yes Status: Acute Code(s): K81.0 - ACUTE CHOLECYSTITIS SNOMED Code(s): 84853414 (4) Coronary artery disease Current Visit: Yes Status: Acute Code(s): I25.10 - ATHSCL HEART DISEASE OF [place] CORONARY ARTERY W/O ANG PCTRS SNOMED Code(s): 24783047 (5) Systolic heart failure Current Visit: Yes Status: Acute Code(s): I50.20 - UNSPECIFIED SYSTOLIC ( CONGESTIVE) HEART FAILURE SNOMED Code(s): 727236039 (6) Respiratory failure Current Visit: Yes Status: Acute Code(s): J96.90 - RESPIRATORY FAILURE, UNSP , UNSP W HYPOXIA OR HYPERCAPNIA SNOMED Code(s): 205538379 Plan: Continue medical care. We'll start tube feedings via the orogastric tube. Continue to monitor the XAVI. Progressing slowly.
[2017-08-05] MEDS: SPIRONOLACTONE 25 MG TAB PO SCH (12:57)
[2017-08-05] MEDS: ASPIRIN 81 MG PO SCH (12:57)
[2017-08-05] MEDS: CARVEDILOL 3.125 MG TAB PO SCH (18:07)
[2017-08-05 18:16] LABS: Glucose,Whole Blood 114 mg/dL (75-99)
--- NOTE | 2017-08-05 19:02 | PN ---
PROGRESS NOTE DATE OF SERVICE: 08/05/2017 This 81-year-old gentleman admitted with acute cholecystis, sepsis and acute respiratory failure, had surgery by Dr. Camarillo. The patient is mechanically ventilated and sedated. PEEP has gone down to 5. Pulmonology is following the patient closely for possible further weaning attempts. The blood pressure is being closely monitored at this time. PAST MEDICAL HISTORY: Reviewed. REVIEW OF SYSTEMS: Could not be taken. CURRENT MEDICATIONS: Reviewed and include: 1. Tylenol 650 q.6h p.r.n. 2. DuoNeb q.i.d. and p.r.n. 3. Zyloprim 300 mg q.h.s. 4. Unasyn 3 g q.6h. 5. Aspirin 81 mg p.o. daily. 6. Symbicort 160/4.5 b.i.d. 8. Peridex. 9. Lovenox. 10.Pepcid. 11.Norvasc. 12.Ativan. 13.Morphine. 14.Levophed. 15.Aldactone. PHYSICAL EXAM: The patient is mechanically sedated. Vent settings are noted. Pulse 78, blood pressure 140/69, respiration 18, temperature 98 degrees, pulse ox 100% on 40%. HEENT: Conjunctivae normal. NECK: No jugular venous distention. No carotid bruit. No lymph node enlargement. CARDIOVASCULAR: S1, S2. No S3, no S4. RESPIRATORY: Breath sounds diminished in the bases. A few scattered rhonchi and crackles. ABDOMEN: Soft, status post surgery. LEGS: No edema. NERVOUS SYSTEM: No focal deficits. LABS: WBC 6.2, hemoglobin 11.7, other labs are noted. ASSESSMENT: 1. Acute cholecystitis with sepsis as well as acute hypoxic respiratory failure status post mechanical ventilation, status post laparoscopic cholecystectomy. 2. Right middle lobe pneumonia. 3. E coli sepsis. 4. Urinary tract infection acute. 5. Anemia of chronic disease. 6. Congestive heart failure with acute on chronic systolic dysfunction, ejection fraction 35-40% with cardiomyopathy. 7. History of cerebrovascular, transient ischemic attack. 8. Hypertension. 9. Hyperlipidemia. 10.History of myocardial infarction. 11.History of gout. 12.History of nephrolithiasis. 13.History of coronary artery disease, CABG, stent. RECOMMENDATIONS AND DISCUSSION: I recommend to continue current management, continue monitoring, and symptomatic treatment. Continue with broad-spectrum IV antibiotics. Follow the cultures further. Continue the weaning attempts. Otherwise, DVT prophylaxis. Continue the rest of medications. Prognosis guarded. Discussed with family. Further recommendations to follow. JESUS / JIE: [id number] / MTDD
[2017-08-05] MEDS: ALLOPURINOL 300 MG TAB PO SCH (20:18)
--- NOTE | 2017-08-05 22:44 | PN ---
PROGRESS NOTE DATE OF SERVICE: 08/05/2017 REASON FOR FOLLOWUP: E. coli bacteremia secondary to acute cholecystitis. INTERVAL HISTORY: The patient is afebrile. The patient is hemodynamically stable. He did have sedation holiday today. Currently on the vent. He has been started on tube feed and has been tolerating. No diarrhea. No significant purulent secretions through the ET. EXAMINATION: Blood pressure 136/56, pulse of 65, temperature 98.9. He is 100% on 40% FiO2. General description is an elderly male lying in bed in no distress. RESPIRATORY SYSTEM: Unlabored breathing, clear to auscultation anteriorly. HEART: S1, S2. Regular rate and rhythm. ABDOMEN: Soft, minimally distended. No rigidity. EXTREMITIES: No edema of the feet. LABS: Hemoglobin 11.6, white count 6.3, BUN of 13, creatinine 0.90. DIAGNOSTIC IMPRESSION AND PLAN: Patient with an E. coli bacteremia secondary to acute cholecystitis, status post cholecystectomy. The patient will continue on Unasyn. Watch his clinical course closely. Continue supportive care. MMMAXIMILIANL / EVGENYN: [id number] /
[2017-08-05 23:26] LABS: Glucose,Whole Blood 139 mg/dL (75-99)
[2017-08-06] MEDS: PROPOFOL 1,000 MG in EMPTY BAG 1 BAG IV SCH ×2 (03:47→06:41)
[2017-08-06] MEDS: D5-0.45% NACL WITH KCL 20MEQ/L 1,000 ML IV SCH ×2 (03:47→11:34)
[2017-08-06] MEDS: MORPHINE SULFATE 4 MG/ML SYRINGE IVP PRN ×6 (03:54→23:18)
[2017-08-06 04:04] LABS: Basophils % (A) 0 %; Eosinophils # (A) 0.2 k/uL (0-0.7); Eosinophils % (A) 3 %; HCT 34.1 % (39.0-53.0); HGB 10.7 gm/dL (13.0-17.5); Hypochromasia Slight; Lymphocytes % (A) 20 %; MCH 31.9 pg (25.0-35.0); MCHC 31.5 g/dL (31.0-37.0); MCV 101.2 fL (80.0-100.0); Macrocytosis Slight; Mean Platelet Volume 8.9; Monocytes # (A) 0.3 k/uL (0-1.0); Monocytes % (A) 6 %; Neutrophils # (A) 3.6 k/uL (1.3-7.7); Neutrophils % (A) 70 %; Platelet Count 131 k/uL (150-450); RBC 3.37 m/uL (4.30-5.90); WBC 5.2 k/uL (3.8-10.6)
[2017-08-06 04:13] LABS: Anion Gap 7 mmol/L; Blood Urea Nitrogen 11 mg/dL (9-20); Calcium 8.5 mg/dL (8.4-10.2); Carbon Dioxide 24 mmol/L (22-30); Chloride 110 mmol/L (98-107); Glucose 137 mg/dL (74-99); Magnesium 1.9 mg/dL (1.6-2.3); Phosphorus 3.2 mg/dL (2.5-4.5); Potassium 4.1 mmol/L (3.5-5.1); Sodium 141 mmol/L (137-145)
[2017-08-06] MEDS ORDERED: Magnesium Replacement Protocol 1 EACH MISC MISCELLANE PRN (04:22)
[2017-08-06 04:41] LABS: ABG Base Excess -1.7 mmol/L; ABG HCO3 24 mmol/L (21-25); ABG Oxygen Saturation 96.4 % (94-97); ABG PCO2 42 mmHg (35-45); ABG PH 7.36 (7.35-7.45); ABG PO2 82 mmHg (83-108); ABG TCO2 25 mmol/L (19-24)
[2017-08-06] MEDS: MAGNESIUM SULFATE-D5W PMX 1 GM in DEXTROSE/WATER 1 100ML.BAG IVPB SCH ×3 (05:13→07:56)
[2017-08-06] MEDS: INSULIN ASPART 100 UNIT/ML 1 ML 10 ML VIAL SQ SCH ×4 (05:14→23:09)
[2017-08-06] MEDS: AMPICILLIN-SULBACTAM 3 GM in SODIUM CHLORIDE 0.9% 100 ML IVPB SCH ×4 (05:14→23:08)
--- NOTE | 2017-08-06 08:00 | XR ---
EXAMINATION TYPE: XR chest 1V DATE OF EXAM: 08/06/2017 COMPARISON: 08/05/2017 HISTORY: Intubation. ET tube requiring ventilation. TECHNIQUE: Single frontal view of the chest is obtained. FINDINGS: ET tube approximately 5.[address] and NG tube noted. Right-sided central line seen with bilateral consolidation and pleural effusion correlate for mild CHF. Atherosclerotic change aorta. IMPRESSION: 1. Correlate for CHF with bilateral effusions and consolidation.
[2017-08-06] MEDS: CARVEDILOL 3.125 MG TAB PO SCH (08:01)
[2017-08-06] MEDS: FAMOTIDINE 20 MG/2 ML VIAL IV SCH ×2 (08:02→20:05)
[2017-08-06] MEDS: CHLORHEXIDINE GLUCONATE 15 ML CUP MUCOUS MEM SCH ×2 (08:02→20:05)
[2017-08-06] MEDS: ASPIRIN 81 MG PO SCH (08:02)
[2017-08-06] MEDS: ENOXAPARIN 40 MG/0.4 ML SYRINGE SQ SCH (08:02)
[2017-08-06] MEDS: SPIRONOLACTONE 25 MG TAB PO SCH (08:02)
[2017-08-06 08:46] LABS: ABG Base Excess -1.7 mmol/L; ABG HCO3 24 mmol/L (21-25); ABG Oxygen Saturation 91.7 % (94-97); ABG PCO2 43 mmHg (35-45); ABG PH 7.36 (7.35-7.45); ABG PO2 60 mmHg (83-108); ABG TCO2 25 mmol/L (19-24)
[2017-08-06] MEDS ORDERED: CARVEDILOL 3.125 MG TAB PO STA (08:56)
[2017-08-06] MEDS ORDERED: FUROSEMIDE 10 MG/ML 4 ML VIAL IV STA (09:26)
[2017-08-06] MEDS: IPRATROPIUM-ALBUTEROL 3 ML NEB INHALATION SCH ×4 (09:27→19:47)
[2017-08-06] MEDS: SYMBICORT 160-4.5 MCG INHALER INHALATION SCH ×2 (09:27→19:47)
[2017-08-06] MEDS: LABETALOL 5 MG/ML VIAL MDV IVP PRN ×2 (09:40→20:00)
--- NOTE | 2017-08-06 10:30 | P.PN ---
Subjective Progress Note Date: 08/06/17 Principal diagnosis: Uncontrolled malignant hypertension, right hemiparesis, Acute cholecystitis, empyema gallbladder Gram-negative sepsis and bacteremia, severe degree of ischemic cardiomyopathy with ejection fraction of 35%, acute on chronic systolic heart failure, coronary artery disease, 08/06/2017, patient seen eval examined during the rounds patient has been taking off of sedation has been off of propofol for over an hour however noted to have slow rise in blood pressure Coreg dose has been escalated to double the dose patient is awake with a blank stare has been moving left upper and lower extremity fairly well some movement and right lower extremity is present but cannot move right upper extremity, patient has been placed on CPAP of 5 and pressure support of 5 which she tolerated fairly well but still arterial blood gases suggestive of significant hypoxemia, chest x-ray reviewed right lower lobe pneumonia improved with a small pleural effusion, laboratory data reviewed as well care plan discussed with surgical services nursing staff and patient's at length critical care time spent 45 minutes 08/05/2017, patient seen eval reexamined during the rounds currently patient remains on full ventilator support with the assist control mode sed rate is 18 breathing 18, tidal volume is 550, 8 of PEEP, FiO2 is down to 40% patient remains on propofol drip which is gradually being titrated down as per plans for sedation holiday, labs reviewed medications reviewed care plan discussed with the surgical services patient is to be started on tube feed as per their recommendation, telemetry revealed presence of intermittent episodes of the nonsustained ventricular tachycardia as well as multiple PVCs patient has been on beta blockers and calcium channel blockers which were discontinued due to severe hypotension as blood pressure has been stabilized now and going up towards we'll resume those medications likely they will help those PVCs as well. We will defer cardiovascular services for initiation or maintenance of amiodarone. Patient is making adequate urine, chest x-ray laboratory data and medications reviewed noted repeat blood cultures have been negative so far ROM of white cell count is normalize arterial blood gases are adequate chest x-ray reviewed note is made of the NG tube improve aeration noted bilateral bases 08/04/2017, patient seen eval examined during the rounds patient remains sedated with propofol drip attempts to wean oxygen down has been unsuccessful overnight however able to bring down the oxygen to 40% from 50% PEEP has been lowered from 10-8, patient is now taken off a few fed drip ventilator setting is stable but the patient continued to manifest respiratory acidosis vent setting include assist control rate of 18 and tidal volume of 500 PEEP of 1060% oxygen respiratory rate is 12 he is calm arousable opens eyes follow simple commands family is present at the bedside care plan discussed with the family at length in light of severe degree of ischemic cardiomyopathy and very low ejection fraction patient will be kept on respirator for another 24-48 hours and slowly will be weaned, propofol is 15 mics, patient is getting Accu-Cheks with relatively stable sugars, currently patient is on D5 half normal saline 20 K meq of KCl with 100 mL an hour. Chest x-ray from this morning reviewed basal atelectasis and right-sided effusion and right lower lobe consolidation is seen , operative findings reviewed empyema gallbladder noted with severe acute cholecystitis culture reviewed my E. coli is sensitive to Unasyn 01/2018, patient seen and evaluated examined in the ICU this patient has been admitted into the hospital with generalized weakness syncope intermittent runs of V. tach with baseline history of severe degree of cardiomyopathy ischemic in nature with ejection fraction just 30-35% patient has a patchy infiltrate on the right side is being treated for pneumonia and sepsis, around 9 PM patient had episode of increasing shortness of breath increases abdominal pain a computed tomography scan of the abdominal and pelvis revealed presence of cholecystitis, general surgery has been consulted patient continued to increase respiratory distress eventually brought into the ICU where he was intubated patient was initially hypertensive however postintubation has episode of hypertension and earlier this morning required fluid resuscitation he did receive Lasix with some urine output yesterday currently Lasix is being held at it appears that patient is somewhat volume depleted culture results and reports are reviewed patient is growing gram-negative rods in the blood likely source being ascending cholangitis versus urinary tract infection with first being more likely urine culture however is pending urinalysis suggestive of inflammatory processes though. His ventilator settings reviewed currently patient is on assist control rate of 18 breathing 22 he is on tidal volume of 500, PEEP is 10 and FiO2 was initially 100% and gradually titrated down to 60% his lactic acid level was mildly elevated pro calcitonin was elevated to, currently patient is on amiodarone map is around 65-70 he is also on propofol 15 mics normal saline KVO amiodarone drip as 0.5 mg/m, patient is well sedated with current ventilator setting and sedation and also being treated with broad- spectrum antibiotics with IV Zosyn his medications are reviewed given that hypertension is present antihypertensive agents are being held, patient will need IV axis but triple-lumen catheter as well as and A-line consent are being obtained 81-year-old male with history of ischemic cardiomyopathy ejection fraction of 30 -35% has not been feeling well for the last 2-3 week with increasing shortness of breath patient does have a history of chronic lower extremity edema with a history of coronary artery disease status post CABG back in 1995. Patient for the last 2 weeks has not been feeling well has been more short of breath than usual has dry nonproductive cough as well which is intermittent off and on due to progressive increasing shortness of breath lately has been feeling weak as well with some intermittent episodes of dizziness lightheadedness patient came into the emergency department he did spike a fever up to 102, over his white cell count were normal chest x-ray showed borderline cardiomegaly and some early infiltrate in the right midlung field cannot be excluded. Patient about 2 weeks ago had a recent fall however he never lost his consciousness no seizure -like activity was seen patient appears to have developed nondisplaced left 10th rib fracture as seen on the rib x-rays. On arrival patient appeared to be in acute exacerbation of CHF likely acute on chronic systolic heart failure with elevated BNP of over 1800, in addition to above patient had echocardiogram which revealed ejection fraction 30% with inferior basal hypokinesia, patient also noted to have intermittent runs of PVCs and has been placed on IV amiodarone, this requestioning patient denies any chest pain or radiation of pain denies any sputum production denies any night sweats fever or chills he denies any seizure-like activity he did have intermittent dizziness usually turning around. He denies any bowel or bladder dysfunction he has chronic lower extremity trace edema. Objective - Vital Signs Vital signs: Vital Signs Temp 97.6 F 08/06/17 08:00 Pulse 95 08/06/17 09:28 Resp 19 08/06/17 09:00 BP 189/101 08/06/17 09:00 Pulse Ox 93 L 08/06/17 09:00 Intake & Output 08/05/17 08/06/17 08/06/17 18:59 06:59 18:59 Intake Total 1562.390 1856.012 469.205 Output Total 960 1155 320 Balance 926.700 990.012 149.205 Weight 116.4 kg 119.7 kg Intake: IV 1640 1520 320 Ampicillin-Sulbactam 3 gm 200 100 In Sodium Chloride 0.9% 100 ml @ 100 mls/hr IVPB Q6HR [facility] Rx#:[id number] D5-0.45% NaCl with KCl 1200 1200 300 20Meq/l 1,000 ml @ 100 mls/hr IV .Q10H [facility] Rx#: [id number] Sodium Chloride 0.9% 1, 240 220 20 000 ml @ 20 mls/hr IV . Q24H [facility] Rx#:[id number] Intake, IV Titration 116.700 245.012 119.205 Amount Magnesium Sulfate-D5w Pmx 100 1 gm In Dextrose/Water 1 100ml.bag @ 100 mls/hr IVPB Q1H [facility] Rx#: [id number] Propofol 1,000 mg In 116.700 245.012 19.205 Empty Bag 1 bag @ Titrate IV .Q0M [facility] Rx#: [id number] Tube Feeding 100 320 30 Other 30 60 Output: Drainage 55 200 75 Right Lower Lateral 55 200 75 Abdomen Urine 905 955 245 Other: Voiding Method Indwelling Catheter Indwelling Catheter Indwelling Catheter ABP, PAP, CO, CI - Last Documented Arterial Blood Pressure 192/98 - Exam - Constitutional General appearance: average body habitus, sedated on Pap/pressure support ventilator support- EENT Eyes: EOMI, PERRLA, normal appearance ENT: hard of hearing Ears: bilateral: normal - Neck Neck: normal ROM Carotids: right: bruit absent, bilateral: upstroke normal Thyroid: bilateral: normal size - Respiratory Respiratory: bilateral: CTA, few basal crackles bilaterally are present - Cardiovascular Heart sounds: normal: S1 and S2 no gallop rub or murmur - Gastrointestinal General gastrointestinal: normal bowel sounds, soft - Integumentary Integumentary: normal, normal turgor - Neurologic Off of propofol on full ventilator support with CPAP and pressure support however right upper extremity strength is 0/ 5 - Musculoskeletal Musculoskeletal: Well developed week right upper extremity - Psychiatric Psychiatric: Unable to assess - Labs CBC & Chem 7: 08/06/17 03:50 08/06/17 03:50 Labs: Abnormal Lab Results - Last 24 Hours (Table) 08/05/17 08/05/17 08/05/17 Range/Units 12:18 18:15 23:24 RBC (4.30-5.90) m/uL Hgb (13.0-17.5) gm/dL Hct (39.0-53.0) % MCV (80.0-100.0) fL Plt Count (150-450) k/uL ABG pO2 (83-108) mmHg ABG Total CO2 (19-24) mmol/L ABG O2 Saturation (94-97) % Chloride (98-107) mmol/L Glucose (74-99) mg/dL POC Glucose (mg/dL) 128 H 114 H 139 H (75-99) mg/dL 08/06/17 08/06/17 08/06/17 Range/Units 03:50 03:50 04:35 RBC 3.37 L (4.30-5.90) m/uL Hgb 10.7 L (13.0-17.5) gm/dL Hct 34.1 L (39.0-53.0) % MCV 101.2 H (80.0-100.0) fL Plt Count 131 L (150-450) k/uL ABG pO2 82 L (83-108) mmHg ABG Total CO2 25 H (19-24) mmol/L ABG O2 Saturation (94-97) % Chloride 110 H (98-107) mmol/L Glucose 137 H (74-99) mg/dL POC Glucose (mg/dL) (75-99) mg/dL 08/06/17 Range/Units 08:44 RBC (4.30-5.90) m/uL Hgb (13.0-17.5) gm/dL Hct (39.0-53.0) % MCV (80.0-100.0) fL Plt Count (150-450) k/uL ABG pO2 60 L (83-108) mmHg ABG Total CO2 25 H (19-24) mmol/L ABG O2 Saturation 91.7 L (94-97) % Chloride (98-107) mmol/L Glucose (74-99) mg/dL POC Glucose (mg/dL) (75-99) mg/dL Microbiology - Last 24 Hours (Table) 08/03/17 15:30 Anaerobic Culture - Preliminary Gallbladder 08/03/17 15:30 Gram Stain - Final Abdomen Wound Culture - Final Escherichia coli 08/02/17 11:57 Blood Culture - Preliminary Blood No Growth after 72 hours 08/02/17 21:58 Gram Stain - Final Sputum Sputum Culture - Final - Imaging and Cardiology Chest x-ray: report reviewed, image reviewed (As noted above) Assessment and Plan Assessment: Uncontrolled malignant hypertension Right upper extremity weakness evaluated for left hemispheric stroke likely in MCA area Intermittent runs of nonsustained ventricular tachycardia and multiple PVCs with stable electrolytes likely related to ischemic cardiomyopathy Severe sepsis and septic shock related to gram-negative bacteremia Empyema gallbladder Acute cholangitis and gram-negative bacteremia Acute cholecystitis Early developing pneumonia in right lower lobe with effusion Acute hypoxic and hypercapnic respirator failure multifactorial related to above Spiking fever may be related to above however will follow up on urine culture results and report Acute exacerbation of CHF likely acute on chronic systolic heart failure with ejection fraction of 30-35% Status post fall with left 10th rib fracture Coronary artery disease and ischemic cardiomyopathy Intermittent episodes of PVCs and arrhythmia, patient is on amiodarone currently History of BPH Dyslipidemia hypertension hypertensive cardiovascular disease Plan: Escalated dose of Coreg continue to hold Norvasc level to laws 20 mg IV every 4 when necessary Computed tomography scan of the head without contrast Consult neurology SIMV mode with pressure support C orders for detail Observe off of vasopressors Medicine adjusted Continued DVT and peptic ulcer disease prophylaxis Electrolyte replacement as tolerated Surgical consultation recommendations reviewed Broad-spectrum antibiotics Breathing treatment Follow-up on urine and blood culture results and report Optimize cardiovascular therapy Repeat labs and x-ray tomorrow Patient is a status post central line and A-line Critical care time spent 45 minutes Discussed with surgical services, nursing staff, patient's at length Time with Patient: Greater than 30
--- NOTE | 2017-08-06 10:32 | CT ---
EXAMINATION TYPE: CT brain wo con DATE OF EXAM: 08/06/2017 HISTORY: altered mental status, Rt sided weakness CT DLP: 1141.3 mGycm. Automated Exposure Control for Dose Reduction was Utilized. TECHNIQUE: CT scan of the head is performed without contrast. COMPARISON: None. FINDINGS: There is no acute intracranial hemorrhage or midline shift identified. There is diffuse v entricular and sulcal prominence consistent with diffuse age-related cerebral atrophy. There is low- attenuation in the periventricular white matter most likely on basis of product of chronic small vess el ischemic change. There is mild to moderate eccentric mucosal thickening in the left sphenoid sinus . There is mild mucosal thickening in ethmoid and inferior frontal sinuses. Both lenses are thinned i n the globes. There is vascular calcification distal internal carotid and vertebral arteries. There i s advanced atlantodental space narrowing incidentally noted. There is partial visualization of orogas tric and endotracheal tubes. IMPRESSION: No acute intracranial hemorrhage or midline shift. There is moderate to severe diffuse age-related cerebral atrophy and nonspecific white matter changes most likely on basis of product of chronic small vessel ischemic change.
--- NOTE | 2017-08-06 11:01 | P.PN ---
Subjective Progress Note Date: 08/06/17 Principal diagnosis: Status post cholecystectomy for empyema of the gallbladder The patient is seen on rounds. He is being weaned from the sedation. He was not able to move his right upper extremity. He was moving the right lower extremity a little bit. Gaze is off to the right side. He is going to go down for a CT scan of the head. Objective - Vital Signs Vital signs: Vital Signs Temp 97.6 F 08/06/17 08:00 Pulse 98 08/06/17 09:40 Resp 19 08/06/17 09:00 BP 189/101 08/06/17 09:00 Pulse Ox 93 L 08/06/17 09:00 Intake & Output 08/05/17 08/06/17 08/06/17 18:59 06:59 18:59 Intake Total 5504.689 0201.012 539.205 Output Total 960 1155 850 Balance 926.700 990.012 -310.795 Weight 116.4 kg 119.7 kg 119.7 kg Intake: IV 1640 1520 390 Ampicillin-Sulbactam 3 gm 200 100 In Sodium Chloride 0.9% 100 ml @ 100 mls/hr IVPB Q6HR [facility] Rx#:[id number] D5-0.45% NaCl with KCl 1200 1200 350 20Meq/l 1,000 ml @ 100 mls/hr IV .Q10H [facility] Rx#: [id number] Sodium Chloride 0.9% 1, 240 220 40 000 ml @ 20 mls/hr IV . Q24H [facility] Rx#:[id number] Intake, IV Titration 116.700 245.012 119.205 Amount Magnesium Sulfate-D5w Pmx 100 1 gm In Dextrose/Water 1 100ml.bag @ 100 mls/hr IVPB Q1H [facility] Rx#: [id number] Propofol 1,000 mg In 116.700 245.012 19.205 Empty Bag 1 bag @ Titrate IV .Q0M [facility] Rx#: [id number] Tube Feeding 100 320 30 Other 30 60 Output: Drainage 55 200 105 Right Lower Lateral 55 200 105 Abdomen Urine 905 955 745 Other: Voiding Method Indwelling Catheter Indwelling Catheter Indwelling Catheter ABP, PAP, CO, CI - Last Documented Arterial Blood Pressure 192/98 - Constitutional Constitutional Comment(s): Is able to follow some commands. Response to his name. - Respiratory Respiratory: bilateral: CTA, diminished (Mildly at the bases), negative: wheezing - Cardiovascular Rhythm: irregularly irregular - Gastrointestinal Gastrointestinal Comment(s): The XAVI now has bilious drainage General gastrointestinal: Present: decreased bowel sounds, soft Localized gastrointestinal: surgical scar: diffuse (Incision is healing without cellulitis) - Labs CBC & Chem 7: 08/06/17 03:50 08/06/17 03:50 Labs: Abnormal Lab Results - Last 24 Hours (Table) 08/05/17 08/05/17 08/05/17 Range/Units 12:18 18:15 23:24 RBC (4.30-5.90) m/uL Hgb (13.0-17.5) gm/dL Hct (39.0-53.0) % MCV (80.0-100.0) fL Plt Count (150-450) k/uL ABG pO2 (83-108) mmHg ABG Total CO2 (19-24) mmol/L ABG O2 Saturation (94-97) % Chloride (98-107) mmol/L Glucose (74-99) mg/dL POC Glucose (mg/dL) 128 H 114 H 139 H (75-99) mg/dL 08/06/17 08/06/17 08/06/17 Range/Units 03:50 03:50 04:35 RBC 3.37 L (4.30-5.90) m/uL Hgb 10.7 L (13.0-17.5) gm/dL Hct 34.1 L (39.0-53.0) % MCV 101.2 H (80.0-100.0) fL Plt Count 131 L (150-450) k/uL ABG pO2 82 L (83-108) mmHg ABG Total CO2 25 H (19-24) mmol/L ABG O2 Saturation (94-97) % Chloride 110 H (98-107) mmol/L Glucose 137 H (74-99) mg/dL POC Glucose (mg/dL) (75-99) mg/dL 08/06/17 Range/Units 08:44 RBC (4.30-5.90) m/uL Hgb (13.0-17.5) gm/dL Hct (39.0-53.0) % MCV (80.0-100.0) fL Plt Count (150-450) k/uL ABG pO2 60 L (83-108) mmHg ABG Total CO2 25 H (19-24) mmol/L ABG O2 Saturation 91.7 L (94-97) % Chloride (98-107) mmol/L Glucose (74-99) mg/dL POC Glucose (mg/dL) (75-99) mg/dL Microbiology - Last 24 Hours (Table) 08/03/17 15:30 Anaerobic Culture - Preliminary Gallbladder 08/03/17 15:30 Gram Stain - Final Abdomen Wound Culture - Final Escherichia coli 08/02/17 11:57 Blood Culture - Preliminary Blood No Growth after 72 hours 08/02/17 21:58 Gram Stain - Final Sputum Sputum Culture - Final Assessment and Plan (1) Cholecystitis Current Visit: Yes Status: Acute Code(s): K81.9 - CHOLECYSTITIS, UNSPECIFIED SNOMED Code(s): 28276781 (2) Empyema of gallbladder Current Visit: Yes Status: Acute Code(s): K81.0 - ACUTE CHOLECYSTITIS SNOMED Code(s): 81776312 (3) Systolic heart failure Current Visit: Yes Status: Acute Code(s): I50.20 - UNSPECIFIED SYSTOLIC ( CONGESTIVE) HEART FAILURE SNOMED Code(s): 598611407 (4) Respiratory failure Current Visit: Yes Status: Acute Code(s): J96.90 - RESPIRATORY FAILURE, UNSP , UNSP W HYPOXIA OR HYPERCAPNIA SNOMED Code(s): 293508715 (5) Bile leak, postoperative Current Visit: Yes Status: Acute Code(s): K91.89 - OTH POSTPROCEDURAL COMPLICATIONS AND DISORDERS OF DGSTV SYS; K83.8 - OTHER SPECIFIED DISEASES OF BILIARY TRACT SNOMED Code(s): 060677843 Plan: CT of the head did not show evidence of an acute CVA or bleed. Pulmonary is addressing the respiratory issues. He is tolerating tube feedings and that will be increased. There is a bile leak noted so GI will be consulted for possible ERCP with stenting. The bile leak is likely due to the intense inflammation in the area of the cystic duct, common bile duct, duodenum. There was a abscess in that area. Nursing was instructed to securely taped the drain so does not inadvertently removed. Continue IV antibiotics and medical care.
--- NOTE | 2017-08-06 11:08 | P.PN ---
Subjective Progress Note Date: 08/06/17 This is a 81-year-old gentleman who was admitted to the hospital with the not feeling well and fevers.. Patient was having nonsustained V. tach. Initially. Subsequently was noted to have cholecystitis and had surgery done. Patient is still intubated. Chest x-ray showed evidence of mild CHF. His blood pressure has been fluctuating. It appears that patient is not moving his right arm. His eyes are also deviated to the right. Patient is moving the left arm of the legs. It appears that patient had a stroke. Computed tomography scan of the vein did not reveal any acute pathology. Neurology consult is pending. Want to add small dose of lisinopril 5 mg to control the blood pressure. Continue current management. I'll probably repeat the CAT scan in 24 hours Objective - Vital Signs Vital signs: Vital Signs Temp 97.6 F 08/06/17 08:00 Pulse 98 08/06/17 09:40 Resp 19 08/06/17 09:00 BP 189/101 08/06/17 09:00 Pulse Ox 93 L 08/06/17 09:00 Intake & Output 08/05/17 08/06/17 08/06/17 18:59 06:59 18:59 Intake Total 8221.523 3692.012 539.205 Output Total 960 1155 850 Balance 926.700 990.012 -310.795 Weight 116.4 kg 119.7 kg 119.7 kg Intake: IV 1640 1520 390 Ampicillin-Sulbactam 3 gm 200 100 In Sodium Chloride 0.9% 100 ml @ 100 mls/hr IVPB Q6HR [facility] Rx#:[id number] D5-0.45% NaCl with KCl 1200 1200 350 20Meq/l 1,000 ml @ 100 mls/hr IV .Q10H [facility] Rx#: [id number] Sodium Chloride 0.9% 1, 240 220 40 000 ml @ 20 mls/hr IV . Q24H [facility] Rx#:[id number] Intake, IV Titration 116.700 245.012 119.205 Amount Magnesium Sulfate-D5w Pmx 100 1 gm In Dextrose/Water 1 100ml.bag @ 100 mls/hr IVPB Q1H [facility] Rx#: [id number] Propofol 1,000 mg In 116.700 245.012 19.205 Empty Bag 1 bag @ Titrate IV .Q0M [facility] Rx#: [id number] Tube Feeding 100 320 30 Other 30 60 Output: Drainage 55 200 105 Right Lower Lateral 55 200 105 Abdomen Urine 905 955 745 Other: Voiding Method Indwelling Catheter Indwelling Catheter Indwelling Catheter ABP, PAP, CO, CI - Last Documented Arterial Blood Pressure 192/98 - Exam GENERAL EXAM: Patient is intubated HEENT: There is a deviation of the eyes to the right NECK: No masses, no nuchal rigidity. CHEST: No chest wall deformity. LUNGS: Diminished breath sounds at the bases HEART: S1 and S2 normal with no audible mumurs or gallops. ABDOMEN: Postsurgical SKIN: No rashes CENTRAL NERVOUS SYSTEM: Weakness of the right arm EXTREMITIES: No cyanosis, clubbing or edema. - Labs CBC & Chem 7: 08/06/17 03:50 08/06/17 03:50 Labs: Abnormal Lab Results - Last 24 Hours (Table) 08/05/17 08/05/17 08/05/17 Range/Units 12:18 18:15 23:24 RBC (4.30-5.90) m/uL Hgb (13.0-17.5) gm/dL Hct (39.0-53.0) % MCV (80.0-100.0) fL Plt Count (150-450) k/uL ABG pO2 (83-108) mmHg ABG Total CO2 (19-24) mmol/L ABG O2 Saturation (94-97) % Chloride (98-107) mmol/L Glucose (74-99) mg/dL POC Glucose (mg/dL) 128 H 114 H 139 H (75-99) mg/dL 08/06/17 08/06/17 08/06/17 Range/Units 03:50 03:50 04:35 RBC 3.37 L (4.30-5.90) m/uL Hgb 10.7 L (13.0-17.5) gm/dL Hct 34.1 L (39.0-53.0) % MCV 101.2 H (80.0-100.0) fL Plt Count 131 L (150-450) k/uL ABG pO2 82 L (83-108) mmHg ABG Total CO2 25 H (19-24) mmol/L ABG O2 Saturation (94-97) % Chloride 110 H (98-107) mmol/L Glucose 137 H (74-99) mg/dL POC Glucose (mg/dL) (75-99) mg/dL 08/06/17 Range/Units 08:44 RBC (4.30-5.90) m/uL Hgb (13.0-17.5) gm/dL Hct (39.0-53.0) % MCV (80.0-100.0) fL Plt Count (150-450) k/uL ABG pO2 60 L (83-108) mmHg ABG Total CO2 25 H (19-24) mmol/L ABG O2 Saturation 91.7 L (94-97) % Chloride (98-107) mmol/L Glucose (74-99) mg/dL POC Glucose (mg/dL) (75-99) mg/dL Microbiology - Last 24 Hours (Table) 08/03/17 15:30 Anaerobic Culture - Preliminary Gallbladder 08/03/17 15:30 Gram Stain - Final Abdomen Wound Culture - Final Escherichia coli 08/02/17 11:57 Blood Culture - Preliminary Blood No Growth after 72 hours 08/02/17 21:58 Gram Stain - Final Sputum Sputum Culture - Final Assessment and Plan (1) Nonsustained ventricular tachycardia Current Visit: Yes Status: Acute Code(s): I47.2 - VENTRICULAR TACHYCARDIA SNOMED Code(s): 912187330 (2) Cholecystitis Current Visit: Yes Status: Acute Code(s): K81.9 - CHOLECYSTITIS, UNSPECIFIED SNOMED Code(s): 83744920 (3) Coronary artery disease Current Visit: Yes Status: Acute Code(s): I25.10 - ATHSCL HEART DISEASE OF [place] CORONARY ARTERY W/O ANG PCTRS SNOMED Code(s): 91165022 (4) Systolic heart failure Current Visit: Yes Status: Acute Code(s): I50.20 - UNSPECIFIED SYSTOLIC ( CONGESTIVE) HEART FAILURE SNOMED Code(s): 543931684 (5) Cardiomyopathy Current Visit: Yes Status: Acute Code(s): I42.9 - CARDIOMYOPATHY, UNSPECIFIED SNOMED Code(s): 40242537 (6) CVA (cerebral vascular accident) Current Visit: Yes Status: Acute Code(s): I63.9 - CEREBRAL INFARCTION, UNSPECIFIED SNOMED Code(s): 991208682 Plan: It appears that patient might have developed CVA with weakness of the right arm. Computed tomography scan did not show any acute pathology. No ventricular arrhythmias at this time. Occasional PVCs are noted. His lungs show some diminished breath sounds at bases. Patient received a IV Lasix. I'm going to add small dose of lisinopril. Neurology consult is pending.
[2017-08-06] MEDS: LISINOPRIL 5 MG TAB OG-TUBE SCH (11:28)
[2017-08-06 11:41] LABS: Glucose,Whole Blood 152 mg/dL (75-99)
--- NOTE | 2017-08-06 13:15 | PN ---
PROGRESS NOTE DATE OF SERVICE: 08/03/2017 This patient was admitted with uncontrolled hypertension. Patient is doing fairly well. His blood pressure over the last 24 hours has improved. First and second heart sounds are normal. Lung examination will be to basal rales. Patient's chest x-ray shows improvement in the pneumonia. We will continue the current medications. Follow the blood pressure and patient will be followed as an outpatient. MMODL / IJN: [id number] /
[2017-08-06 17:43] LABS: Glucose,Whole Blood 117 mg/dL (75-99)
[2017-08-06] MEDS: CARVEDILOL 6.25 MG TAB PO SCH (18:23)
[2017-08-06] MEDS: ALLOPURINOL 300 MG TAB PO SCH (20:05)
--- NOTE | 2017-08-06 20:27 | CONS ---
CONSULTATION DATE OF CONSULTATION: 08/06/2017 CHIEF COMPLAINT: Right-sided weakness. HISTORY OF PRESENT ILLNESS: Mr. Martin is an 81-year-old male who is being evaluated by the neurology service per the request of Dr. Briseno for right-sided weakness. The patient was admitted to [facility] on 08/01/2017 with the complaints of productive cough and a fever. He was diagnosed with pneumonia and admitted for further workup and management. He was then diagnosed with acute cholecystitis and underwent a cholecystectomy on Sunday. On Sunday, the patient was noticed to be moving all 4 extremities, although he does have chronic lower extremity weakness. Yesterday, the nursing staff noticed that he was not moving his right side compared to his left side. A STAT CT scan of the brain was done which showed no acute findings. There was generalized atrophy and small-vessel ischemic changes. A neurology consultation was obtained. At the time of my evaluation, the patient remains in the intensive care unit on mechanical ventilator. He is awake and follows commands. He continues to have right-sided weakness. He is currently on aspirin 81 mg daily. His CBC today showed anemia with a hemoglobin of 10.7 and hematocrit of 34% and thrombocytopenia at 131,000. His basic metabolic profile showed no significant abnormalities. PAST MEDICAL HISTORY: 1. Congestive heart failure. 2. Diabetes. 3. Hypertension. 4. Dyslipidemia. 5. History of myocardial infarction. 6. Coronary artery disease. 7. Nephrolithiasis. 8. History of coronary artery bypass grafting and coronary artery stent placement. FAMILY HISTORY: Positive for heart disease. SOCIAL HISTORY: The patient is a former smoker. He occasionally drinks alcohol. There is no history of any drug use. HOME MEDICATIONS: Reviewed in the chart. ALLERGIES: KEFLEX and CIPRO. REVIEW OF SYSTEMS: Unable to obtain, as the patient is intubated. PHYSICAL EXAMINATION: Vital signs show a temperature of 98.3, pulse 81, respiration 20, blood pressure 155/67. GENERAL APPEARANCE: The patient is a well-developed elderly male who appears to be in no acute distress. HEENT: Normocephalic, atraumatic. No facial asymmetry is seen. Endotracheal tube is intact. NECK: Supple with no masses felt. CARDIOVASCULAR: Regular rate and rhythm. Extremities showed trace edema with no clubbing seen. NEUROLOGICAL EXAMINATION: The patient is awake and does follow commands appropriately. Strength appears to be 4/5 in the left upper extremity, 2/5 in the right upper extremity, 1/5 in the right lower extremity and 3/5 in the left lower extremity. Sensory examination was limited and inconsistent, but there appears to be sensory deficit on the right compared to the left. No tremors or seizure-like activity is seen. No obvious facial asymmetry is seen on cranial nerve testing. IMPRESSION: 1. Acute ischemic stroke, likely left middle cerebral artery distribution. 2. Right-sided weakness. 3. Generalized weakness. 4. Acute cholecystitis, status post cholecystectomy. RECOMMENDATION: The patient does appear to have suffered an acute ischemic stroke and he continues to have right-sided weakness. His initial CT scan of the brain showed no acute findings. I will repeat a CT scan of the brain in 24 hours. Continue anti-platelet therapy and IV hydration as tolerated. I will order a carotid Doppler, fasting lipid panel, EEG and serum homocystine level. Continue DVT prophylaxis. Continue monitoring his platelet count, as he does have thrombocytopenia today. I do recommend a physical therapy consultation. I had a lengthy discussion with the patient's family regarding my findings and prognosis. I will continue to follow with you. Further recommendations to follow. Thank you for allowing me to participate in the care of your patient. If you have any questions, please feel free to contact me. JESUS / IJN: [id number] /
--- NOTE | 2017-08-06 23:09 | PN ---
PROGRESS NOTE DATE OF SERVICE: 08/06/2017. REASON FOR FOLLOWUP: E. coli bacteremia secondary to acute cholecystitis. INTERVAL HISTORY: The patient is afebrile. The patient remains to be on the vent. He is hemodynamically stable, not requiring any pressor support. FiO2 is stable at 40%, tolerating his tube feeds. No significant diarrhea. EXAMINATION: Blood pressure 151/68 with a pulse of 81, temperature 98. He is 100% on 40% FiO2. General description is an elderly male lying in bed in no distress. RESPIRATORY SYSTEM: Unlabored breathing, clear to auscultation anteriorly. HEART: S1, S2. Regular rate and rhythm. ABDOMEN: Soft. No tenderness. No rigidity. EXTREMITIES: No edema of the feet. LABS: Hemoglobin is 10.7, white count 5.2, BUN of 11, creatinine 0.73. DIAGNOSTIC IMPRESSION AND PLAN: Patient with an E. coli bacteremia secondary to acute cholecystitis, status post open cholecystectomy. The patient at this time to continue with the Unasyn sensitive and because of his antibiotics allergy, hopefully switch him to oral once he is extubated improve. Family present at bedside. Their questions were answered. MMODL / IJN: [id number] /
[2017-08-06 23:10] LABS: Glucose,Whole Blood 155 mg/dL (75-99)
--- NOTE | 2017-08-07 02:52 | US ---
EXAMINATION TYPE: US carotid duplex BILAT DATE OF EXAM: 08/06/2017 COMPARISON: NONE CLINICAL HISTORY: CVA. CVA exam limitations due to patient on vent. EXAM MEASUREMENTS: RIGHT: Peak Systolic Velocity (PSV) cm/sec ----- Right CCA: 82.0 ----- Right ICA: 70.3 ----- Right ECA: 108.1 ICA/CCA ratio: 0.9 RIGHT: End Diastole cm/sec ----- Right CCA: 11.6 ----- Right ICA: 14.2 ----- Right ECA: 7.9 LEFT: Peak Systolic Velocity (PSV) cm/sec ----- Left CCA: 93.5 ----- Left ICA: 109.7 ----- Left ECA: 118.1 ICA/CCA ratio: LEFT: End Diastole cm/sec ----- Left CCA: 20.8 ----- Left ICA: 40.2 ----- Left ECA: 9.7 VERTEBRALS (direction of flow): Right Vertebral: Antegrade Left Vertebral: Antegrade Rhythm: Normal Bilateral vessels dive deep. No significant stenosis seen IMPRESSION: There is antegrade flow in the vertebral arteries. There is calcified plaque and shadowi ng. Images and measurements suggest 30-40% stenosis in the internal carotid arteries. Criteria for Assigning % of Stenosis / Diameter reduction (Estimation based on the indirect measurements of the internal carotid artery velocities (ICA PSV). 1. Normal (no stenosis)=ICA PSV < 125 cm/s: ratio < 2.0: ICA EDV<40 cm/s. 2. Less than 50% stenosis=ICA PSV < 125 cm/s: ratio < 2.0: ICA EDV<40 cm/s. 3. 50 to 69% stenosis=ICA PSV of 125 to 230 cm/s: ration 2.0 ? 4.0: ICA EDV 40-100 cm/s. 4. Greater than 70% stenosis to near occlusion= ICA PSV > 230 cm/s: ratio > 4.0: ICA EDV > 100 cm/s. 5. Near occlusion= ICA PSV velocities may be low or undetectable: variable ratio and ICA EDV. 6. Total occlusion=unable to detect flow.
[2017-08-07] MEDS: MORPHINE SULFATE 4 MG/ML SYRINGE IVP PRN ×2 (02:59→07:12)
[2017-08-07 04:33] LABS: Basophils % (A) 0 %; Eosinophils # (A) 0.2 k/uL (0-0.7); Eosinophils % (A) 2 %; HCT 35.3 % (39.0-53.0); HGB 11.1 gm/dL (13.0-17.5); Lymphocytes # (A) 0.9 k/uL (1.0-4.8); Lymphocytes % (A) 14 %; MCH 31.6 pg (25.0-35.0); MCHC 31.4 g/dL (31.0-37.0); MCV 100.5 fL (80.0-100.0); Macrocytosis Slight; Mean Platelet Volume 8.3; Monocytes # (A) 0.4 k/uL (0-1.0); Monocytes % (A) 6 %; Neutrophils # (A) 4.9 k/uL (1.3-7.7); Neutrophils % (A) 78 %; Platelet Count 155 k/uL (150-450); RBC 3.51 m/uL (4.30-5.90); RDW 14.1 % (11.5-15.5); WBC 6.4 k/uL (3.8-10.6)
[2017-08-07 04:50] LABS: Anion Gap 10 mmol/L; Blood Urea Nitrogen 14 mg/dL (9-20); Calcium 8.6 mg/dL (8.4-10.2); Carbon Dioxide 26 mmol/L (22-30); Chloride 105 mmol/L (98-107); Cholesterol 156 mg/dL (<200); Glucose 151 mg/dL (74-99); HDL Cholesterol 25 mg/dL (40-60); LDL Cholesterol,Calculated 98 mg/dL (0-99); Magnesium 1.9 mg/dL (1.6-2.3); Phosphorus 3.8 mg/dL (2.5-4.5); Potassium 4.2 mmol/L (3.5-5.1); Sodium 141 mmol/L (137-145); Triglycerides 164 mg/dL (<150)
[2017-08-07] MEDS: AMPICILLIN-SULBACTAM 3 GM in SODIUM CHLORIDE 0.9% 100 ML IVPB SCH ×3 (05:14→17:42)
[2017-08-07] MEDS ORDERED: Magnesium Replacement Protocol 1 EACH MISC MISCELLANE PRN (05:15)
[2017-08-07] MEDS: INSULIN ASPART 100 UNIT/ML 1 ML 10 ML VIAL SQ SCH ×3 (05:15→17:57)
[2017-08-07] MEDS: LABETALOL 5 MG/ML VIAL MDV IVP PRN ×4 (05:17→17:58)
--- NOTE | 2017-08-07 06:34 | PN ---
PROGRESS NOTE DATE OF SERVICE: 08/06/2017. This 81-year-old gentleman admitted with acute sepsis and acute respiratory failure. Surgery by Dr. Camarillo. The patient is on mechanical ventilation. Dr. Wright is following the patient closely. Infectious Disease also been consulted. The patient also was suspicious of weakness and neurology has been consulted to rule out the possibility of any acute stroke because of right-sided weakness. PAST MEDICAL HISTORY: Reviewed. REVIEW OF SYSTEMS: Could not be taken the patient mechanically intubated. CURRENT MEDICATIONS: 1. Tylenol 650 q.6 p.r.n. 2. DuoNeb q.i.d. and p.r.n. 3. Zyloprim 300 mg p.o. at bedtime. 4. Unasyn 3 grams IV q.6. 5. Aspirin 81 mg p.o. daily. 6. Symbicort 160/4.5 two puffs b.i.d. 7. Coreg 6.25 mg b.i.d. 8. Peridex. 9. Lovenox. 10.Pepcid 20 mg IV b.i.d. 11.Trandate. 12.Zestril 5 mg. 13.Ativan. 14.Replacement protocols. 15.Aldactone. PHYSICAL EXAM: The patient mechanically intubated, vent settings are noted. Pulse is 77, blood pressure 133/61, respirations 15, temperature 98.8, pulse ox 99% on 40% FiO2, PEEP of 5. HEENT: Conjunctivae normal. Oral mucosa moist. NECK: No jugular venous distention. No carotid bruit. No lymph node enlargement. CARDIOVASCULAR: S1 and S2 muffled. RESPIRATORY: Breath sounds diminished at the bases. Scattered rhonchi and crackles. Expiratory wheezing also present. ABDOMEN: Soft, nontender. Status post surgery. XAVI drain present. LEGS: No edema, no swelling. NERVOUS SYSTEM: Patient is mechanically sedated. SKIN: No ulcer, rash or bleeding. LABS: Labs are at this time shows ABGs noted. Accu-Cheks noted. WBC 5.2, hemoglobin 10.7. LFTs are noted. Cultures are showing E coli, which is poly sensitive. ASSESSMENT: 1. Acute cholecystitis with Escherichia coli sepsis as well as acute hypoxic respiratory failure status post mechanical ventilation and status post laparoscopic cholecystectomy. 2. Right middle lobe pneumonia. 3. Right-sided weakness possibly indicating left middle cerebral artery stroke per Neurology. 4. Acute urinary tract infection. 5. Anemia of chronic disease. 6. Congestive heart failure acute exacerbation with acute on chronic systolic dysfunction, ejection fraction 35% to 40% with possible cardiomyopathy. 7. History of cerebrovascular accident, transient ischemic attack. 8. Hypertension. 9. Hyperlipidemia. 10.History of myocardial infarction. 11.History of gout. 12.History of nephrolithiasis. 13.History of coronary artery disease, coronary artery bypass grafting, stent. RECOMMENDATIONS AND DISCUSSION: Recommend to continue current medication, continues symptomatic treatment, continue the broad-spectrum IV antibiotics. Follow closely with Surgery, Infectious Disease and Neurology. Neurovascular workup as indicated. Otherwise, overall prognosis extremely guarded because of multiple complex medical issues as mentioned earlier. Further recommendations to follow. MMODL / IJN: [id number] / IRENA
[2017-08-07] MEDS: MAGNESIUM SULFATE-D5W PMX 1 GM in DEXTROSE/WATER 1 100ML.BAG IVPB SCH ×2 (07:10→07:32)
[2017-08-07] MEDS: SYMBICORT 160-4.5 MCG INHALER INHALATION SCH ×2 (07:22→19:34)
[2017-08-07] MEDS: IPRATROPIUM-ALBUTEROL 3 ML NEB INHALATION SCH ×4 (07:22→19:33)
--- NOTE | 2017-08-07 08:22 | P.PN ---
Subjective Progress Note Date: 08/07/17 Principal diagnosis: Status post cholecystectomy for empyema of the gallbladder The patient is seen on rounds. He is more alert today and following commands. He still not moving his right upper extremity well. He is having 200 mL residuals with his tube feedings. No bowel movement since surgery. Objective - Vital Signs Vital signs: Vital Signs Temp 98.8 F 08/07/17 04:00 Pulse 83 08/07/17 07:35 Resp 16 08/07/17 07:00 BP 164/86 08/06/17 12:30 Pulse Ox 98 08/07/17 07:00 Intake & Output 08/06/17 08/07/17 08/07/17 18:59 06:59 18:59 Intake Total 8205.745 0766 60 Output Total 2880 1475 125 Balance -1140.795 -21 -65 Weight 119.7 kg 116 kg Intake: IV 1050 820 60 0.9 at KVO 50 120 10 Ampicillin-Sulbactam 3 gm 200 100 In Sodium Chloride 0.9% 100 ml @ 100 mls/hr IVPB Q6HR [facility] Rx#:[id number] D5-0.45% NaCl with KCl 400 20Meq/l 1,000 ml @ 100 mls/hr IV .Q10H [facility] Rx#: [id number] D5-0.45% NaCl with KCl 350 600 50 20Meq/l 1,000 ml @ 50 mls /hr IV .Q20H [facility] Rx#: [id number] Sodium Chloride 0.9% 1, 50 000 ml @ 20 mls/hr IV . Q24H [facility] Rx#:[id number] Intake, IV Titration 119.205 Amount Magnesium Sulfate-D5w Pmx 100 1 gm In Dextrose/Water 1 100ml.bag @ 100 mls/hr IVPB Q1H [facility] Rx#: [id number] Propofol 1,000 mg In 19.205 Empty Bag 1 bag @ Titrate IV .Q0M [facility] Rx#: [id number] Tube Feeding 480 574 Other 90 60 Output: Drainage 190 240 Right Lower Lateral 190 240 Abdomen Urine 2690 1235 125 Other: Voiding Method Indwelling Catheter Indwelling Catheter ABP, PAP, CO, CI - Last Documented Arterial Blood Pressure 175/75 - Constitutional General appearance: Present: cooperative, no acute distress - Respiratory Respiratory: bilateral: CTA - Cardiovascular Rhythm: regular - Gastrointestinal General gastrointestinal: Present: normal bowel sounds, soft Localized gastrointestinal: surgical scar: diffuse (Incision is healing well without cellulitis. XAVI is bilious) - Labs CBC & Chem 7: 08/07/17 04:20 08/07/17 04:20 Labs: Abnormal Lab Results - Last 24 Hours (Table) 08/06/17 08/06/17 08/06/17 Range/Units 08:44 11:40 17:41 RBC (4.30-5.90) m/uL Hgb (13.0-17.5) gm/dL Hct (39.0-53.0) % MCV (80.0-100.0) fL Lymphocytes # (1.0-4.8) k/uL ABG pO2 60 L (83-108) mmHg ABG Total CO2 25 H (19-24) mmol/L ABG O2 Saturation 91.7 L (94-97) % Glucose (74-99) mg/dL POC Glucose (mg/dL) 152 H 117 H (75-99) mg/dL Triglycerides (<150) mg/dL HDL Cholesterol (40-60) mg/dL 08/06/17 08/07/17 08/07/17 Range/Units 23:09 04:20 04:20 RBC 3.51 L (4.30-5.90) m/uL Hgb 11.1 L (13.0-17.5) gm/dL Hct 35.3 L (39.0-53.0) % MCV 100.5 H (80.0-100.0) fL Lymphocytes # 0.9 L (1.0-4.8) k/uL ABG pO2 (83-108) mmHg ABG Total CO2 (19-24) mmol/L ABG O2 Saturation (94-97) % Glucose 151 H (74-99) mg/dL POC Glucose (mg/dL) 155 H (75-99) mg/dL Triglycerides 164 H (<150) mg/dL HDL Cholesterol 25 L (40-60) mg/dL Microbiology - Last 24 Hours (Table) 08/02/17 11:57 Blood Culture - Preliminary Blood No Growth after 96 hours Assessment and Plan (1) Cholecystitis Current Visit: Yes Status: Acute Code(s): K81.9 - CHOLECYSTITIS, UNSPECIFIED SNOMED Code(s): 29721453 (2) Bile leak, postoperative Current Visit: Yes Status: Acute Code(s): K91.89 - OTH POSTPROCEDURAL COMPLICATIONS AND DISORDERS OF DGSTV SYS; K83.8 - OTHER SPECIFIED DISEASES OF BILIARY TRACT SNOMED Code(s): 118621077 (3) Empyema of gallbladder Current Visit: Yes Status: Acute Code(s): K81.0 - ACUTE CHOLECYSTITIS SNOMED Code(s): 02212276 (4) Systolic heart failure Current Visit: Yes Status: Acute Code(s): I50.20 - UNSPECIFIED SYSTOLIC ( CONGESTIVE) HEART FAILURE SNOMED Code(s): 498433809 (5) Respiratory failure Current Visit: Yes Status: Acute Code(s): J96.90 - RESPIRATORY FAILURE, UNSP , UNSP W HYPOXIA OR HYPERCAPNIA SNOMED Code(s): 016503682 Plan: Patient's being evaluated for possible weaning from the ventilator. He will would offer repeat computed tomography scan this afternoon as follow-up to rule out ischemic CVA. GI is being consult at for ERCP and stenting. This can be delayed until he is more stable. The bile leak is currently controlled with the XAVI drain and he is not having any significant abdominal pain. Prognosis is guarded. Low dose Reglan will be added for increased gastric emptying.
[2017-08-07 08:30] LABS: ABG Base Excess 2.7 mmol/L; ABG HCO3 27 mmol/L (21-25); ABG PCO2 41 mmHg (35-45); ABG PH 7.43 (7.35-7.45); ABG PO2 80 mmHg (83-108); ABG TCO2 28 mmol/L (19-24)
[2017-08-07] MEDS: FAMOTIDINE 20 MG/2 ML VIAL IV SCH ×2 (08:36→20:10)
[2017-08-07] MEDS: SPIRONOLACTONE 25 MG TAB PO SCH (08:36)
[2017-08-07] MEDS: CARVEDILOL 6.25 MG TAB PO SCH ×2 (08:36→17:16)
[2017-08-07] MEDS: ASPIRIN 81 MG PO SCH (08:36)
[2017-08-07] MEDS: ENOXAPARIN 40 MG/0.4 ML SYRINGE SQ SCH (08:36)
[2017-08-07] MEDS: CHLORHEXIDINE GLUCONATE 15 ML CUP MUCOUS MEM SCH (08:36)
[2017-08-07] MEDS: LISINOPRIL 5 MG TAB OG-TUBE SCH (08:36)
--- NOTE | 2017-08-07 08:37 | XR ---
EXAMINATION TYPE: XR chest 1V DATE OF EXAM: 08/07/2017 COMPARISON: Prior chest 08/06/2017 HISTORY: Intubated TECHNIQUE: Single frontal view of the chest is obtained. FINDINGS: The patient is rotated. Endotracheal tube is overlying appropriate position. There is a rig ht jugular central venous catheter and the distal tip is near the cavoatrial junction level, NG tube is present and distal tip is not included on the exam but coursing towards the stomach. There is no e vident pneumothorax. Patient is post median sternotomy, and the heart remains enlarged. Interstitium is increased, central vascularity prominent. Patchy basilar density is present as on prior. There are overlying cardiac leads. IMPRESSION: Suspect pulmonary venous hypertension and interstitial edema. Difficult to exclude basil ar effusion.
--- NOTE | 2017-08-07 09:52 | P.PN ---
Subjective Progress Note Date: 08/07/17 Principal diagnosis: Acute cholecystitis, sepsis, nonsustained V. tach This patient is admitted to the hospital with a fever and generalized weakness and was diagnosed to have cholecystitis and sepsis. He also was noted to have nonsustained V. tach. Since cholecystectomy, patient hasn't had any episodes of nonsustained V. tach. Has been having some frequent PVCs. Patient is off amiodarone at this time. Yesterday patient was noted to have weakness on the right side and some deviation of eyes to the right. There is a suspicion that he might have had a stroke. Computed tomography scan was negative for any acute pathology. Today patient seemed to be responding and seemed to be moving the right arm slightly and also has a sense of touch. Therefore, attempts being made to extubate him today. Meanwhile we'll continue his current medical therapy Objective - Vital Signs Vital signs: Vital Signs Temp 98.8 F 08/07/17 08:00 Pulse 92 08/07/17 09:00 Resp 18 08/07/17 09:00 BP 182/93 08/07/17 09:00 Pulse Ox 99 08/07/17 09:00 Intake & Output 08/06/17 08/07/17 08/07/17 18:59 06:59 18:59 Intake Total 0390.098 3461 210 Output Total 2880 1475 255 Balance -1140.795 -21 -45 Weight 119.7 kg 116 kg Intake: IV 1050 820 110 0.9 at KVO 50 120 10 Ampicillin-Sulbactam 3 gm 200 100 In Sodium Chloride 0.9% 100 ml @ 100 mls/hr IVPB Q6HR [facility] Rx#:[id number] D5-0.45% NaCl with KCl 400 20Meq/l 1,000 ml @ 100 mls/hr IV .Q10H [facility] Rx#: [id number] D5-0.45% NaCl with KCl 350 600 100 20Meq/l 1,000 ml @ 50 mls /hr IV .Q20H [facility] Rx#: [id number] Sodium Chloride 0.9% 1, 50 000 ml @ 20 mls/hr IV . Q24H [facility] Rx#:[id number] Intake, IV Titration 119.205 100 Amount Magnesium Sulfate-D5w Pmx 100 1 gm In Dextrose/Water 1 100ml.bag @ 100 mls/hr IVPB Q1H [facility] Rx#: [id number] Magnesium Sulfate-D5w Pmx 100 1 gm In Dextrose/Water 1 100ml.bag @ 100 mls/hr IVPB Q1H [facility] Rx#: [id number] Propofol 1,000 mg In 19.205 Empty Bag 1 bag @ Titrate IV .Q0M [facility] Rx#: [id number] Tube Feeding 480 574 Other 90 60 Output: Drainage 190 240 70 Right Lower Lateral 190 240 70 Abdomen Urine 2690 1235 185 Other: Voiding Method Indwelling Catheter Indwelling Catheter ABP, PAP, CO, CI - Last Documented Arterial Blood Pressure 165/79 - Exam GENERAL EXAM: Patient is intubated, but seems to be responding to verbal stimuli appropriately. HEENT: Normal NECK: No masses, no nuchal rigidity. CHEST: No chest wall deformity. LUNGS: Diminished breath sounds at the bases HEART: S1 and S2 normal with no audible mumurs or gallops. ABDOMEN: Postsurgical SKIN: No rashes CENTRAL NERVOUS SYSTEM: Seems to be patient is able to move the right arm EXTREMITIES: No cyanosis, clubbing or edema. - Labs CBC & Chem 7: 08/07/17 04:20 08/07/17 04:20 Labs: Abnormal Lab Results - Last 24 Hours (Table) 08/06/17 08/06/17 08/06/17 Range/Units 11:40 17:41 23:09 RBC (4.30-5.90) m/uL Hgb (13.0-17.5) gm/dL Hct (39.0-53.0) % MCV (80.0-100.0) fL Lymphocytes # (1.0-4.8) k/uL ABG pO2 (83-108) mmHg ABG HCO3 (21-25) mmol/L ABG Total CO2 (19-24) mmol/L Glucose (74-99) mg/dL POC Glucose (mg/dL) 152 H 117 H 155 H (75-99) mg/dL Triglycerides (<150) mg/dL HDL Cholesterol (40-60) mg/dL 08/07/17 08/07/17 08/07/17 Range/Units 04:20 04:20 08:20 RBC 3.51 L (4.30-5.90) m/uL Hgb 11.1 L (13.0-17.5) gm/dL Hct 35.3 L (39.0-53.0) % MCV 100.5 H (80.0-100.0) fL Lymphocytes # 0.9 L (1.0-4.8) k/uL ABG pO2 80 L (83-108) mmHg ABG HCO3 27 H (21-25) mmol/L ABG Total CO2 28 H (19-24) mmol/L Glucose 151 H (74-99) mg/dL POC Glucose (mg/dL) (75-99) mg/dL Triglycerides 164 H (<150) mg/dL HDL Cholesterol 25 L (40-60) mg/dL Microbiology - Last 24 Hours (Table) 08/02/17 11:57 Blood Culture - Preliminary Blood No Growth after 96 hours Assessment and Plan (1) Nonsustained ventricular tachycardia Current Visit: Yes Status: Acute Code(s): I47.2 - VENTRICULAR TACHYCARDIA SNOMED Code(s): 168989006 (2) Cholecystitis Current Visit: Yes Status: Acute Code(s): K81.9 - CHOLECYSTITIS, UNSPECIFIED SNOMED Code(s): 74951621 (3) Coronary artery disease Current Visit: Yes Status: Acute Code(s): I25.10 - ATHSCL HEART DISEASE OF [place] CORONARY ARTERY W/O ANG PCTRS SNOMED Code(s): 66931001 (4) Systolic heart failure Current Visit: Yes Status: Acute Code(s): I50.20 - UNSPECIFIED SYSTOLIC ( CONGESTIVE) HEART FAILURE SNOMED Code(s): 850898526 (5) Cardiomyopathy Current Visit: Yes Status: Acute Code(s): I42.9 - CARDIOMYOPATHY, UNSPECIFIED SNOMED Code(s): 62466705 (6) CVA (cerebral vascular accident) Current Visit: Yes Status: Acute Code(s): I63.9 - CEREBRAL INFARCTION, UNSPECIFIED SNOMED Code(s): 777663793 Plan: Patient seemed to be improving neurologically. No ventricular tachycardia episodes. Lab work was normal. We'll continue with current medical therapy. Possible extubation today
--- NOTE | 2017-08-07 10:19 | P.CONS ---
History of Present Illness - Reason for Consult Consult date: 08/07/17 Bile leak Requesting physician: Arely Camarillo - History of Present Illness 81-year-old male admitted 6 days ago with lightheadedness and dizziness congested cough shortness of breath. Positive blood cultures E. coli. CT abdomen and pelvis reported features of acute cholecystitis. Status post open cholecystectomy with intraoperative findings of acute cholecystitis possible calculous with empyema on 08/03/2017. Surgical pathology pending. Consult requested for bile leak. Presently intubated in the ICU setting receiving oral feeds via OG tube. XAVI drain producing Coca-Cola colored bile. LFTs 08/03/2017: Total bilirubin 0.4. AST 19. ALT 48. Alkaline phosphatase 176. Possible extubation today. White count 6.4. Hemoglobin 11.1. Platelet 155. INR 1.0. Review of Systems Medical records reviewed for ROS history Constitutional: Denies fever, chills, sweats, weight gain, or loss. Admitted with lightheadedness dizziness. HEENT: Negative for migraines, blurred vision or loss, earaches, drainage, tinnitus, oral mucosal lesions, dysphagia, or odynophagia. Cardiac: Negative for chest pain, arrhythmias, or palpitation. Respiratory: Admitted with congested cough. Shortness of breath. Gastrointestinal: See HPI for pertinent findings. Genitourinary: Negative for hematuria, urgency, frequency, polyuria, dysuria, or penile discharge. Musculoskeletal: Negative for muscle aches, swelling, arthritis, and arthralgias. Neurologic: Negative for stroke or TIA. Endocrine: Negative for thyroid problems. Skin: Negative for rash or itching. Psychiatric: Negative history for depression and anxiety ROS unobtainable: due to endotracheal tube Past Medical History Past Medical History: Chest Pain / Angina, Heart Failure, CVA/TIA, Hyperlipidemia, Hypertension, Myocardial Infarction ([place]), Osteoarthritis (OA), Prostate Disorder Additional Past Medical History / Comment(s): kidney stones, gout,tia 2005, mi 1987 and 1988, IN PAST TOOK MEDS FOR DM-NO LONGER TAKES MEDS OR CHECKS BS. Last Myocardial Infarction Date:: 1988 History of Any Multi-Drug Resistant Organisms: None Reported Past Surgical History: Coronary Bypass/CABG, Heart Catheterization With Stent, Tonsillectomy Additional Past Surgical History / Comment(s): left hip replacement 2009,lt inguinal hernia repair, cystocopy,turp,quad cabg 1995 had heart cath w/ stent after cabg,aaa reapir 2000, dianne cataracts, lt hand sx (revison of amp lt thumb) , kidney stones removed, vasectomy. Past Anesthesia/Blood Transfusion Reactions: No Reported Reaction Date of Last Stent Placement:: unk Past Psychological History: No Psychological Hx Reported Additional Psychological History / Comment(s): pt lives with his jose in a single story home that has 1 step to enter. pt uses a 4 wheeled seated walker to get around. no steps in home. no home care services recieved. served in the [employer] when younger. 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 Smoking Status: Former smoker Past Alcohol Use History: Occasional Additional Past Alcohol Use History / Comment(s): smoked for 40 years 2ppd, quit 1977 Past Drug Use History: None Reported - Past Family History Mother Family Medical History: Myocardial Infarction ([place]) Father Family Medical History: Myocardial Infarction ([place]) Medications and Allergies Home Medications Medication Instructions Recorded Confirmed Type Allopurinol [Zyloprim] 300 mg PO HS 08/30/16 08/01/17 History Atenolol 25 mg PO BID 08/30/16 08/01/17 History Budesonide/Formoterol Fumarate 2 puff INHALATION RT-BID 08/30/16 08/01/17 History [Symbicort 160-4.5 Mcg Inhaler] Dipyridamole-Aspirin 200-25 mg 1 tab PO BID 08/30/16 08/01/17 History [Aggrenox 25MG -200MG] Tamsulosin HCl [Flomax] 0.4 mg PO HS 08/30/16 08/01/17 History amLODIPine [Norvasc] 5 mg PO HS 08/30/16 08/01/17 History Allergies Allergy/AdvReac Type Severity Reaction Status Date / Time cephalexin [From Keflex] Allergy Rash/Hives Verified 08/01/17 23:06 ciprofloxacin [From Cipro] Allergy Rash/Hives Verified 08/01/17 23:06 Physical Exam Vitals: Vital Signs Temp Pulse Resp BP Pulse Ox 08/07/17 09:00 92 18 182/93 99 08/07/17 08:30 83 15 98 08/07/17 08:00 98.8 F 86 17 98 05/15/18 07:35 83 05/15/18 07:30 79 15 97 05/15/18 07:23 81 05/15/18 07:00 80 16 98 05/15/18 06:30 79 18 98 05/15/18 06:00 78 16 99 05/15/18 05:30 81 18 98 05/15/18 05:00 87 16 99 05/15/18 04:30 88 15 99 05/15/18 04:00 98.8 F 90 16 99 05/15/18 03:30 88 16 99 05/15/18 03:00 91 20 99 05/15/18 02:30 84 18 100 05/15/18 02:00 80 16 99 05/15/18 01:30 69 14 99 05/15/18 01:00 71 15 99 05/15/18 00:30 72 14 98 05/15/18 00:00 98.8 F 77 15 99 05/14/18 23:30 74 13 99 05/14/18 23:00 83 16 100 05/14/18 22:30 84 15 100 05/14/18 22:26 80 15 100 05/14/18 22:00 82 20 100 05/14/18 21:30 82 21 100 05/14/18 21:00 81 13 100 05/14/18 20:50 78 05/14/18 20:30 78 15 100 05/14/18 20:00 98.7 F 96 18 100 05/14/18 19:47 103 H 05/14/18 19:30 93 19 100 05/14/18 19:00 91 15 100 05/14/18 18:45 92 17 99 05/14/18 18:30 88 18 98 05/14/18 18:15 83 15 98 05/14/18 18:00 85 16 99 05/14/18 17:45 84 15 98 05/14/18 17:30 84 15 97 05/14/18 17:15 85 20 97 05/14/18 17:00 78 15 99 05/14/18 16:45 78 15 99 05/14/18 16:30 81 20 99 05/14/18 16:15 79 15 99 05/14/18 16:04 91 05/14/18 16:00 98.3 F 78 13 100 05/14/18 15:46 83 05/14/18 15:45 85 18 98 08/06/17 15:30 77 16 99 08/06/17 15:15 83 16 99 08/06/17 15:00 77 16 99 08/06/17 14:45 81 17 99 08/06/17 14:30 82 16 99 08/06/17 14:15 81 16 98 08/06/17 14:00 82 20 99 08/06/17 13:49 80 08/06/17 13:45 77 18 100 08/06/17 13:40 82 08/06/17 13:30 81 20 99 08/06/17 13:15 81 18 99 08/06/17 13:00 82 17 99 08/06/17 12:45 79 18 99 08/06/17 12:30 80 19 164/86 98 08/06/17 12:15 87 21 164/86 96 08/06/17 12:00 98.4 F 81 18 164/86 97 08/06/17 11:45 87 18 164/86 96 08/06/17 11:30 84 20 164/86 96 08/06/17 11:15 84 18 164/86 95 08/06/17 11:00 86 20 164/86 94 L 08/06/17 10:45 85 20 164/86 93 L 08/06/17 10:30 87 20 94 L 08/06/17 10:15 86 18 174/98 94 L Intake and Output 08/06/17 08/07/17 08/07/17 22:59 06:59 14:59 Intake Total 930 1064 353 Output Total 875 1065 995 Balance 55 -0 -672 Intake: IV 570 580 170 0.9 at KVO 70 80 20 Ampicillin-Sulbactam 3 gm 100 100 In Sodium Chloride 0.9% 100 ml @ 100 mls/hr IVPB Q6HR [facility] Rx#:[id number] D5-0.45% NaCl with KCl 400 400 150 20Meq/l 1,000 ml @ 50 mls /hr IV .Q20H [facility] Rx#: [id number] Intake, IV Titration 100 Amount Magnesium Sulfate-D5w Pmx 100 1 gm In Dextrose/Water 1 100ml.bag @ 100 mls/hr IVPB Q1H [facility] Rx#: [id number] Tube Feeding 330 424 83 Other 30 60 Output: Gastric Drainage 650 Drainage 70 240 70 Right Lower Lateral 70 240 70 Abdomen Urine 805 825 275 Other: Voiding Method Indwelling Catheter Indwelling Catheter Weight 116 kg ABP, PAP, CO, CI - Last 8 Hours Arterial Blood Pressure 165/79 Arterial Blood Pressure 159/66 Arterial Blood Pressure 179/75 Arterial Blood Pressure 136/60 Arterial Blood Pressure 175/75 Arterial Blood Pressure 156/65 Arterial Blood Pressure 134/57 Arterial Blood Pressure 139/59 Arterial Blood Pressure 127/55 Arterial Blood Pressure 125/56 Arterial Blood Pressure 138/58 Arterial Blood Pressure 150/66 Arterial Blood Pressure 171/80 Arterial Blood Pressure 145/76 NGeneral appearance: The patient is awake on the ventilator intubated. HET: Head is normocephalic and atraumatic. Pupils are equal and reactive. Oropharynx is clear without lesions. NG tube presently without feeds. Neck: Supple without lymphadenopathy. Trachea midline. Heart: S1 S2. Regular rate and rhythm. Lungs: No crackles or wheezes are heard. Abdomen: Soft, surgical dressings intact XAVI with Coca-Cola bile. nondistended with bowel sounds. No peritoneal signs. No palpable organomegaly or masses. Extremities: Normal skin color and turgor. No cyanosis, rash, ulceration, clubbing, or edema. Radial and pedal pulses are 2/4 bilaterally. Márquez with clear gina urine. Neurological: Patient is awake on the ventilator moving arms. Results CBC & Chem 7: 08/07/17 04:20 08/07/17 04:20 Labs: Abnormal Lab Results - Last 24 Hours (Table) 08/06/17 08/06/17 08/06/17 Range/Units 11:40 17:41 23:09 RBC (4.30-5.90) m/uL Hgb (13.0-17.5) gm/dL Hct (39.0-53.0) % MCV (80.0-100.0) fL Lymphocytes # (1.0-4.8) k/uL ABG pO2 (83-108) mmHg ABG HCO3 (21-25) mmol/L ABG Total CO2 (19-24) mmol/L Glucose (74-99) mg/dL POC Glucose (mg/dL) 152 H 117 H 155 H (75-99) mg/dL Triglycerides (<150) mg/dL HDL Cholesterol (40-60) mg/dL 08/07/17 08/07/17 08/07/17 Range/Units 04:20 04:20 08:20 RBC 3.51 L (4.30-5.90) m/uL Hgb 11.1 L (13.0-17.5) gm/dL Hct 35.3 L (39.0-53.0) % MCV 100.5 H (80.0-100.0) fL Lymphocytes # 0.9 L (1.0-4.8) k/uL ABG pO2 80 L (83-108) mmHg ABG HCO3 27 H (21-25) mmol/L ABG Total CO2 28 H (19-24) mmol/L Glucose 151 H (74-99) mg/dL POC Glucose (mg/dL) (75-99) mg/dL Triglycerides 164 H (<150) mg/dL HDL Cholesterol 25 L (40-60) mg/dL Microbiology - Last 24 Hours (Table) 08/02/17 11:57 Blood Culture - Preliminary Blood No Growth after 96 hours Assessment and Plan (1) Bile leak, postoperative Narrative/Plan: Without jaundice liver enzymes unremarkable Current Visit: Yes Status: Acute Code(s): K91.89 - OTH POSTPROCEDURAL COMPLICATIONS AND DISORDERS OF DGSTV SYS; K83.8 - OTHER SPECIFIED DISEASES OF BILIARY TRACT SNOMED Code(s): 316376749 (2) Sepsis Current Visit: Yes Status: Acute Code(s): A41.9 - SEPSIS, UNSPECIFIED ORGANISM SNOMED Code(s): 62666506 (3) Bacteremia Current Visit: Yes Status: Acute Code(s): R78.81 - BACTEREMIA SNOMED Code( s): 6358973 (4) S/P cholecystectomy Current Visit: Yes Status: Acute Code(s): Z90.49 - ACQUIRED ABSENCE OF OTHER SPECIFIED PARTS OF DIGESTIVE TRACT SNOMED Code(s): 478648851 Plan: 1. Continue supportive measures. Possible extubation. Consideration for ERCP in next 48-72 hours based on clinical course. Continue to monitor XAVI output CMP in a.m. IV antibiotics. Thank you for this kind referral and the opportunity to participate in the care of your patient. This consultation was discussed with Dr. Barrett. The impression and plan of care have been directed as dictated.
[2017-08-07] MEDS: D5-0.45% NACL WITH KCL 20MEQ/L 1,000 ML IV SCH ×2 (11:28→17:57)
[2017-08-07 11:51] LABS: Glucose,Whole Blood 160 mg/dL (75-99)
[2017-08-07] MEDS: METOCLOPRAMIDE 5 MG/ML 2 ML VIAL IVP SCH ×2 (12:56→18:11)
--- NOTE | 2017-08-07 14:11 | P.PN ---
Subjective Progress Note Date: 08/07/17 (Critical care time spent 35 minutes) Principal diagnosis: Uncontrolled malignant hypertension, right hemiparesis, Acute cholecystitis, empyema gallbladder Gram-negative sepsis and bacteremia, severe degree of ischemic cardiomyopathy with ejection fraction of 35%, acute on chronic systolic heart failure, coronary artery disease, 08/07/2017, patient seen eval examined during the rounds he has been on SIMV rate of 8 breathing about 16-18, FiO2 is down to 40%, patient has been placed on CPAP 5 pressure support of 5 on which she was monitor observe for over an hour and arterial blood gases reviewed weaning parameters reviewed as well patient is a 50 more awake and makes her better eye contact some movement 1/5 in right upper extremity has been noted, chest x-ray reviewed laboratory data reviewed as well care plan discussed with the primary service and nursing staff at length and family present at bedside patient was switched to CPAP 5 pressure support of 5 and spontaneous tidal volume were and 500 range with respiratory rate and high teens to low 20s no obvious respirator distress presents slight elevation in blood pressure was however noted likely related to stress of weaning, overall blood pressure is very well controlled with current intervention, patient required 2 doses of morphine overnight otherwise remains off of sedation, as per recommendation of GI services patient will probably require ERCP once extubated 08/06/2017, patient seen eval examined during the rounds patient has been taking off of sedation has been off of propofol for over an hour however noted to have slow rise in blood pressure Coreg dose has been escalated to double the dose patient is awake with a blank stare has been moving left upper and lower extremity fairly well some movement and right lower extremity is present but cannot move right upper extremity, patient has been placed on CPAP of 5 and pressure support of 5 which she tolerated fairly well but still arterial blood gases suggestive of significant hypoxemia, chest x-ray reviewed right lower lobe pneumonia improved with a small pleural effusion, laboratory data reviewed as well care plan discussed with surgical services nursing staff and patient's at length critical care time spent 45 minutes 08/05/2017, patient seen eval reexamined during the rounds currently patient remains on full ventilator support with the assist control mode sed rate is 18 breathing 18, tidal volume is 550, 8 of PEEP, FiO2 is down to 40% patient remains on propofol drip which is gradually being titrated down as per plans for sedation holiday, labs reviewed medications reviewed care plan discussed with the surgical services patient is to be started on tube feed as per their recommendation, telemetry revealed presence of intermittent episodes of the nonsustained ventricular tachycardia as well as multiple PVCs patient has been on beta blockers and calcium channel blockers which were discontinued due to severe hypotension as blood pressure has been stabilized now and going up towards we'll resume those medications likely they will help those PVCs as well. We will defer cardiovascular services for initiation or maintenance of amiodarone. Patient is making adequate urine, chest x-ray laboratory data and medications reviewed noted repeat blood cultures have been negative so far ROM of white cell count is normalize arterial blood gases are adequate chest x-ray reviewed note is made of the NG tube improve aeration noted bilateral bases 08/04/2017, patient seen eval examined during the rounds patient remains sedated with propofol drip attempts to wean oxygen down has been unsuccessful overnight however able to bring down the oxygen to 40% from 50% PEEP has been lowered from 10-8, patient is now taken off a few fed drip ventilator setting is stable but the patient continued to manifest respiratory acidosis vent setting include assist control rate of 18 and tidal volume of 500 PEEP of 1060% oxygen respiratory rate is 12 he is calm arousable opens eyes follow simple commands family is present at the bedside care plan discussed with the family at length in light of severe degree of ischemic cardiomyopathy and very low ejection fraction patient will be kept on respirator for another 24-48 hours and slowly will be weaned, propofol is 15 mics, patient is getting Accu-Cheks with relatively stable sugars, currently patient is on D5 half normal saline 20 K meq of KCl with 100 mL an hour. Chest x-ray from this morning reviewed basal atelectasis and right-sided effusion and right lower lobe consolidation is seen , operative findings reviewed empyema gallbladder noted with severe acute cholecystitis culture reviewed my E. coli is sensitive to Unasyn 01/2018, patient seen and evaluated examined in the ICU this patient has been admitted into the hospital with generalized weakness syncope intermittent runs of V. tach with baseline history of severe degree of cardiomyopathy ischemic in nature with ejection fraction just 30-35% patient has a patchy infiltrate on the right side is being treated for pneumonia and sepsis, around 9 PM patient had episode of increasing shortness of breath increases abdominal pain a computed tomography scan of the abdominal and pelvis revealed presence of cholecystitis, general surgery has been consulted patient continued to increase respiratory distress eventually brought into the ICU where he was intubated patient was initially hypertensive however postintubation has episode of hypertension and earlier this morning required fluid resuscitation he did receive Lasix with some urine output yesterday currently Lasix is being held at it appears that patient is somewhat volume depleted culture results and reports are reviewed patient is growing gram-negative rods in the blood likely source being ascending cholangitis versus urinary tract infection with first being more likely urine culture however is pending urinalysis suggestive of inflammatory processes though. His ventilator settings reviewed currently patient is on assist control rate of 18 breathing 22 he is on tidal volume of 500, PEEP is 10 and FiO2 was initially 100% and gradually titrated down to 60% his lactic acid level was mildly elevated pro calcitonin was elevated to, currently patient is on amiodarone map is around 65-70 he is also on propofol 15 mics normal saline KVO amiodarone drip as 0.5 mg/m, patient is well sedated with current ventilator setting and sedation and also being treated with broad- spectrum antibiotics with IV Zosyn his medications are reviewed given that hypertension is present antihypertensive agents are being held, patient will need IV axis but triple-lumen catheter as well as and A-line consent are being obtained 81-year-old male with history of ischemic cardiomyopathy ejection fraction of 30 -35% has not been feeling well for the last 2-3 week with increasing shortness of breath patient does have a history of chronic lower extremity edema with a history of coronary artery disease status post CABG back in 1995. Patient for the last 2 weeks has not been feeling well has been more short of breath than usual has dry nonproductive cough as well which is intermittent off and on due to progressive increasing shortness of breath lately has been feeling weak as well with some intermittent episodes of dizziness lightheadedness patient came into the emergency department he did spike a fever up to 102, over his white cell count were normal chest x-ray showed borderline cardiomegaly and some early infiltrate in the right midlung field cannot be excluded. Patient about 2 weeks ago had a recent fall however he never lost his consciousness no seizure -like activity was seen patient appears to have developed nondisplaced left 10th rib fracture as seen on the rib x-rays. On arrival patient appeared to be in acute exacerbation of CHF likely acute on chronic systolic heart failure with elevated BNP of over 1800, in addition to above patient had echocardiogram which revealed ejection fraction 30% with inferior basal hypokinesia, patient also noted to have intermittent runs of PVCs and has been placed on IV amiodarone, this requestioning patient denies any chest pain or radiation of pain denies any sputum production denies any night sweats fever or chills he denies any seizure-like activity he did have intermittent dizziness usually turning around. He denies any bowel or bladder dysfunction he has chronic lower extremity trace edema. Objective - Vital Signs Vital signs: Vital Signs Temp 98.9 F 08/07/17 12:00 Pulse 88 08/07/17 13:00 Resp 21 08/07/17 13:00 BP 160/90 08/07/17 13:00 Pulse Ox 99 08/07/17 13:00 Intake & Output 08/06/17 08/07/17 08/07/17 18:59 06:59 18:59 Intake Total 6561.452 8077 683 Output Total 2880 1475 1425 Balance -1140.795 -21 -742 Weight 119.7 kg 116 kg Intake: IV 1050 820 500 0.9 at KVO 50 120 50 Ampicillin-Sulbactam 3 gm 200 100 100 In Sodium Chloride 0.9% 100 ml @ 100 mls/hr IVPB Q6HR [facility] Rx#:[id number] D5-0.45% NaCl with KCl 400 20Meq/l 1,000 ml @ 100 mls/hr IV .Q10H [facility] Rx#: [id number] D5-0.45% NaCl with KCl 350 600 350 20Meq/l 1,000 ml @ 50 mls /hr IV .Q20H [facility] Rx#: [id number] Sodium Chloride 0.9% 1, 50 000 ml @ 20 mls/hr IV . Q24H [facility] Rx#:[id number] Intake, IV Titration 119.205 100 Amount Magnesium Sulfate-D5w Pmx 100 1 gm In Dextrose/Water 1 100ml.bag @ 100 mls/hr IVPB Q1H [facility] Rx#: [id number] Magnesium Sulfate-D5w Pmx 100 1 gm In Dextrose/Water 1 100ml.bag @ 100 mls/hr IVPB Q1H [facility] Rx#: [id number] Propofol 1,000 mg In 19.205 Empty Bag 1 bag @ Titrate IV .Q0M [facility] Rx#: [id number] Tube Feeding 480 574 83 Other 90 60 Output: Gastric Drainage 650 Drainage 190 240 180 Right Lower Lateral 190 240 180 Abdomen Urine 2690 1235 595 Other: Voiding Method Indwelling Catheter Indwelling Catheter Indwelling Catheter ABP, PAP, CO, CI - Last Documented Arterial Blood Pressure 165/92 - Exam - Constitutional General appearance: average body habitus, sedated on Pap/pressure support ventilator support- EENT Eyes: EOMI, PERRLA, normal appearance ENT: hard of hearing Ears: bilateral: normal - Neck Neck: normal ROM Carotids: right: bruit absent, bilateral: upstroke normal Thyroid: bilateral: normal size - Respiratory Respiratory: bilateral: CTA, few basal crackles bilaterally are present - Cardiovascular Heart sounds: normal: S1 and S2 no gallop rub or murmur - Gastrointestinal General gastrointestinal: normal bowel sounds, soft - Integumentary Integumentary: normal, normal turgor - Neurologic Off of propofol on full ventilator support with CPAP and pressure support however right upper extremity strength is 0/ 5 - Musculoskeletal Musculoskeletal: Well developed, week right upper extremity - Psychiatric Psychiatric: Unable to assess - Labs CBC & Chem 7: 08/07/17 04:20 08/07/17 04:20 Labs: Abnormal Lab Results - Last 24 Hours (Table) 08/06/17 08/06/17 08/07/17 Range/Units 17:41 23:09 03:40 RBC (4.30-5.90) m/uL Hgb (13.0-17.5) gm/dL Hct (39.0-53.0) % MCV (80.0-100.0) fL Lymphocytes # (1.0-4.8) k/uL ABG pO2 (83-108) mmHg ABG HCO3 (21-25) mmol/L ABG Total CO2 (19-24) mmol/L Glucose (74-99) mg/dL POC Glucose (mg/dL) 117 H 155 H (75-99) mg/dL Triglycerides (<150) mg/dL HDL Cholesterol (40-60) mg/dL Homocysteine 16.04 H (4.00-14.00) umol/L 08/07/17 08/07/17 08/07/17 Range/Units 04:20 04:20 08:20 RBC 3.51 L (4.30-5.90) m/uL Hgb 11.1 L (13.0-17.5) gm/dL Hct 35.3 L (39.0-53.0) % MCV 100.5 H (80.0-100.0) fL Lymphocytes # 0.9 L (1.0-4.8) k/uL ABG pO2 80 L (83-108) mmHg ABG HCO3 27 H (21-25) mmol/L ABG Total CO2 28 H (19-24) mmol/L Glucose 151 H (74-99) mg/dL POC Glucose (mg/dL) (75-99) mg/dL Triglycerides 164 H (<150) mg/dL HDL Cholesterol 25 L (40-60) mg/dL Homocysteine (4.00-14.00) umol/L 08/07/17 Range/Units 11:47 RBC (4.30-5.90) m/uL Hgb (13.0-17.5) gm/dL Hct (39.0-53.0) % MCV (80.0-100.0) fL Lymphocytes # (1.0-4.8) k/uL ABG pO2 (83-108) mmHg ABG HCO3 (21-25) mmol/L ABG Total CO2 (19-24) mmol/L Glucose (74-99) mg/dL POC Glucose (mg/dL) 160 H (75-99) mg/dL Triglycerides (<150) mg/dL HDL Cholesterol (40-60) mg/dL Homocysteine (4.00-14.00) umol/L Microbiology - Last 24 Hours (Table) 08/02/17 11:57 Blood Culture - Preliminary Blood No Growth after 96 hours Assessment and Plan Assessment: Uncontrolled malignant hypertension, relatively better under control Right upper extremity weakness evaluated for left hemispheric stroke likely in MCA area vs TIA Intermittent runs of nonsustained ventricular tachycardia and multiple PVCs with stable electrolytes likely related to ischemic cardiomyopathy Severe sepsis and septic shock related to gram-negative bacteremia Empyema gallbladder Acute cholangitis and gram-negative bacteremia Acute cholecystitis Early developing pneumonia in right lower lobe with effusion Acute hypoxic and hypercapnic respirator failure multifactorial related to above Spiking fever may be related to above however will follow up on urine culture results and report Acute exacerbation of CHF likely acute on chronic systolic heart failure with ejection fraction of 30-35% Status post fall with left 10th rib fracture Coronary artery disease and ischemic cardiomyopathy Intermittent episodes of PVCs and arrhythmia, patient is on amiodarone currently History of BPH Dyslipidemia hypertension hypertensive cardiovascular disease Plan: Escalated dose of Coreg continue to hold Norvasc level to laws 20 mg IV every 4 when necessary Computed tomography scan of the head without contrast Reviewed neurology recommendations Patient tolerated the CPAP pressure support trial and very well will proceed with extubation Observe off of vasopressors Medicine adjusted Continued DVT and peptic ulcer disease prophylaxis Electrolyte replacement as tolerated Surgical consultation recommendations reviewed Broad-spectrum antibiotics Breathing treatment Follow-up on urine and blood culture results and report Optimize cardiovascular therapy Repeat labs and x-ray tomorrow Patient is a status post central line and A-line Critical care time spent 35 minutes Discussed with surgical services, nursing staff, patient's at length Time with Patient: Greater than 30
--- NOTE | 2017-08-07 14:17 | CT ---
EXAMINATION TYPE: CT brain wo con DATE OF EXAM: 08/07/2017 COMPARISON: 08/06/2017 HISTORY: 81-year-old male CVA follow-up. TECHNIQUE: Examination was done in axial plane without intravenous contrast. Coronal and sagittal r econstructions performed. CT DLP: 1177 mGycm Automated exposure control for dose reduction was used. FINDINGS: Prominent motion artifact along the skull base. Mild to moderate ventriculomegaly is redemonstrated l ikely in part due to central cerebral atrophy. Lyle's ratio is calculated at 0.40. Moderate patchy w tamara matter hypodensities in both cerebral hemispheres. There is no evidence of acute intracranial hemorrhage, acute ischemic changes, mass, mass-effect, or extra-axial fluid collection. There is no effacement of cerebral sulci or basal subarachnoid cister ns. There is no midline shift. Vogel-white matter distinction is preserved. Paranasal sinuses and mastoid air cells well pneumatized. IMPRESSION: 1. Moderate ventriculomegaly is unchanged. In part this may relate to central cerebral atrophy. Corre late for a possible component of NPH 2. Moderate patchy white matter hypodensities likely relating to chronic small vessel ischemic diseas e. 3. No acute intracranial abnormality seen.
--- NOTE | 2017-08-07 14:34 | P.PN ---
Subjective Progress Note Date: 08/07/17 Principal diagnosis: Patient is an 81-year-old male who is being followed by the neurology service for right-sided weakness. Patient has been having cough and fever and came to [facility] on 08/01/2017 for further evaluation. Patient was found to have pneumonia as well as acute cholecystitis and patient underwent cholecystectomy on 08/03/2017. The following day after surgery, patient was noted to be moving all 4 extremities. Patient does have chronic lower extremity weakness. Nursing staff noticed patient was not moving his right side compared to his left side 2 days following surgery. Stat computed tomography scan of the brain was done which showed no acute findings. CT did show generalized atrophy and small vessel ischemic changes. Patient is currently in the ICU setting. At the time of my evaluation, patient's resting comfortably in bed and appears to be in no acute distress. Patient continues to have right-sided weakness. Objective - Vital Signs Vital signs: Vital Signs Temp 98.9 F 08/07/17 12:00 Pulse 92 08/07/17 14:00 Resp 17 08/07/17 14:00 BP 145/75 08/07/17 14:00 Pulse Ox 98 08/07/17 14:00 Intake & Output 08/06/17 08/07/17 08/07/17 18:59 06:59 18:59 Intake Total 9651.993 4942 743 Output Total 2880 1475 1725 Balance -1140.795 -21 -982 Weight 119.7 kg 116 kg Intake: IV 1050 820 560 0.9 at KVO 50 120 60 Ampicillin-Sulbactam 3 gm 200 100 100 In Sodium Chloride 0.9% 100 ml @ 100 mls/hr IVPB Q6HR [facility] Rx#:[id number] D5-0.45% NaCl with KCl 400 20Meq/l 1,000 ml @ 100 mls/hr IV .Q10H [facility] Rx#: [id number] D5-0.45% NaCl with KCl 350 600 400 20Meq/l 1,000 ml @ 50 mls /hr IV .Q20H [facility] Rx#: [id number] Sodium Chloride 0.9% 1, 50 000 ml @ 20 mls/hr IV . Q24H [facility] Rx#:[id number] Intake, IV Titration 119.205 100 Amount Magnesium Sulfate-D5w Pmx 100 1 gm In Dextrose/Water 1 100ml.bag @ 100 mls/hr IVPB Q1H [facility] Rx#: [id number] Magnesium Sulfate-D5w Pmx 100 1 gm In Dextrose/Water 1 100ml.bag @ 100 mls/hr IVPB Q1H [facility] Rx#: [id number] Propofol 1,000 mg In 19.205 Empty Bag 1 bag @ Titrate IV .Q0M [facility] Rx#: [id number] Tube Feeding 480 574 83 Other 90 60 Output: Gastric Drainage 650 Drainage 190 240 180 Right Lower Lateral 190 240 180 Abdomen Urine 2690 1235 895 Other: Voiding Method Indwelling Catheter Indwelling Catheter Indwelling Catheter ABP, PAP, CO, CI - Last Documented Arterial Blood Pressure 158/73 - Exam PHYSICAL EXAM: GENERAL APPEARANCE: Patient is a well-developed, male who appears to be in no acute distress. HEENT: Normocephalic, atraumatic, no facial asymmetry is seen. Neck is supple with no masses felt. CARDIOVASCULAR: Regular rate and rhythm. ABDOMEN: Nontender, nondistended. EXTREMITIES: Show no edema or clubbing. NEUROLOGICAL EXAM: Patient is awake, and does follow commands with the left upper and lower extremity. Strength is 4/5 in the left upper extremity and 2/5 in the right upper extremity, 1/5 in the right lower extremity and 3/5 in the left lower extremity. Sensory exam was not performed with meaningful results as patient is extremely hard of hearing. No tremors or seizure-like activity is noted. No obvious facial asymmetry is seen. - Labs CBC & Chem 7: 08/07/17 04:20 08/07/17 04:20 Labs: Abnormal Lab Results - Last 24 Hours (Table) 08/06/17 08/06/17 08/07/17 Range/Units 17:41 23:09 03:40 RBC (4.30-5.90) m/uL Hgb (13.0-17.5) gm/dL Hct (39.0-53.0) % MCV (80.0-100.0) fL Lymphocytes # (1.0-4.8) k/uL ABG pO2 (83-108) mmHg ABG HCO3 (21-25) mmol/L ABG Total CO2 (19-24) mmol/L Glucose (74-99) mg/dL POC Glucose (mg/dL) 117 H 155 H (75-99) mg/dL Triglycerides (<150) mg/dL HDL Cholesterol (40-60) mg/dL Homocysteine 16.04 H (4.00-14.00) umol/L 08/07/17 08/07/17 08/07/17 Range/Units 04:20 04:20 08:20 RBC 3.51 L (4.30-5.90) m/uL Hgb 11.1 L (13.0-17.5) gm/dL Hct 35.3 L (39.0-53.0) % MCV 100.5 H (80.0-100.0) fL Lymphocytes # 0.9 L (1.0-4.8) k/uL ABG pO2 80 L (83-108) mmHg ABG HCO3 27 H (21-25) mmol/L ABG Total CO2 28 H (19-24) mmol/L Glucose 151 H (74-99) mg/dL POC Glucose (mg/dL) (75-99) mg/dL Triglycerides 164 H (<150) mg/dL HDL Cholesterol 25 L (40-60) mg/dL Homocysteine (4.00-14.00) umol/L 08/07/17 Range/Units 11:47 RBC (4.30-5.90) m/uL Hgb (13.0-17.5) gm/dL Hct (39.0-53.0) % MCV (80.0-100.0) fL Lymphocytes # (1.0-4.8) k/uL ABG pO2 (83-108) mmHg ABG HCO3 (21-25) mmol/L ABG Total CO2 (19-24) mmol/L Glucose (74-99) mg/dL POC Glucose (mg/dL) 160 H (75-99) mg/dL Triglycerides (<150) mg/dL HDL Cholesterol (40-60) mg/dL Homocysteine (4.00-14.00) umol/L Microbiology - Last 24 Hours (Table) 08/02/17 11:57 Blood Culture - Preliminary Blood No Growth after 120 hours Assessment and Plan Plan: Impression: 1. Acute ischemic stroke, likely left middle cerebral artery distribution 2. Right sided weakness 3. Generalized weakness 4. Status post cholecystectomy 5. Pneumonia Recommendation: Patient does appear to have suffered acute ischemic stroke in the left MCA distribution. Continue antiplatelet therapy. Platelet count is within normal limits today. Patient continues to have right-sided weakness. Initial computed tomography scan of the brain showed no acute findings. A repeat computed tomography scan of the brain was done and results are pending. EEG was done and results are pending. Carotid Doppler showed no significant stenosis. Lipid panel showed elevated triglycerides of 164 and low HDL of 25. Consider statin therapy. Homocystine level was elevated at 16.04. I will order Foltx daily. I recommend strict blood pressure control as his blood pressure can become quite elevated. I recommend PT/OT to evaluate and treat. I will continue to follow with you. Further recommendations to follow. I performed an examination of the patient and discussed the management with the ADJUNCT PHLEBOTOMY INSTRUCTOR. I have reviewed the ADJUNCT PHLEBOTOMY INSTRUCTOR notes and agree with the findings and plan of care.
[2017-08-07] MEDS: hydrALAZINE HCL 20 MG/ML 1 ML VIAL IVP PRN ×2 (15:15→21:23)
--- NOTE | 2017-08-07 15:49 | PN ---
PROGRESS NOTE DATE OF SERVICE: 08/07/2017. REASON FOR FOLLOWUP: E coli bacteremia secondary to the acute cholecystitis. INTERVAL HISTORY: The patient is afebrile. Has been extubated this morning. Has been breathing comfortably. Slightly lethargic, post extubation. No nausea, vomiting. No diarrhea. EXAMINATION: Blood pressure 149/77, pulse 82, temperature 98. He is 97% on 3 L nasal cannula. General description is an elderly male lying in bed in no distress. Respiratory system: Unlabored breathing with decreased breath sounds in the base, with no wheeze. Heart S1, S2. Regular rate and rhythm. Abdomen soft, no tenderness. Extremities: No edema of the feet. LABS: Hemoglobin 11.1, white count 6.4, BUN of 14, creatinine 0. Blood culture repeat has been negative so far. DIAGNOSTIC IMPRESSION AND PLAN: Patient with an E coli bacteremia secondary to acute cholecystitis status post cholecystectomy. The patient to continue with Unasyn in view of his ANTIBIOTICS ALLERGIES hopefully finish therapy with oral antibiotics once his oral intake improves. Continue supportive care. MMODL / IJN: [id number] /
[2017-08-07 17:56] LABS: Glucose,Whole Blood 136 mg/dL (75-99)
--- NOTE | 2017-08-07 19:07 | EEG ---
ELECTROENCEPHALOGRAM REPORT DATE OF SERVICE: 08/07/2017. REASON FOR TESTING: Stroke. DESCRIPTION OF THE PROCEDURE: This EEG was performed using a 21 channel digital electroencephalograph, following international 10-20 system. DESCRIPTION OF THE RECORDING: From the beginning of the tracing, and with patient's eyes closed, the background rhythm was mostly consisting of 6-7 Hz theta frequency in the posterior occipital leads. No obvious asymmetry is seen. Photic stimulation was performed with no driving response seen. No pathological waves were elicited. Hyperventilation was not performed. Occasional muscle artifacts are seen, more so on the left than the right. During the tracing, the patient does reach stage II of sleep, and occasional K complexes are seen. No epileptiform discharges were seen. His EKG lead showed a regular rate and rhythm. INTERPRETATION: This asleep and awake EEG is abnormal due to the presence of generalized slowing of the background rhythm, mostly in the theta range. This is consistent with mild encephalopathy. No epileptiform discharges were seen. The absence of epileptiform discharges does not rule out the diagnosis of epilepsy, therefore clinical correlation is recommended. MMODL / IJN: [id number] /
[2017-08-07] MEDS: amLODIPine 5 MG TAB PO SCH (20:10)
[2017-08-07] MEDS: ARTIFICIAL TEARS-HYPROMELLOSE DROPS 15 ML BTL BOTH EYES PRN (20:10)
[2017-08-07] MEDS: ALLOPURINOL 300 MG TAB PO SCH (20:10)
--- NOTE | 2017-08-07 21:55 | P.PN ---
Subjective this is a pleasant 81 yo M admitted with acute sepsis and acute resp failure , was intubated and s/p extubation today 08/07/17. is following the pt closely , ID has been consulted, the pt also was suspicious for weakness of his right upper ext and neurology has been consulted for possible stroke 08/07/17 today pt was extubated when I saw the pt he could open his eyes spontaneously , and follow command , he was not moving his right upper ext and it was in splint , pt could not provide history as he was just extubated , whoever he was noticed to breath comfortabley and not in resp distress Review of Systems unable to perform as pt could not provide history Home Medications Medication Instructions Recorded Confirmed Type Allopurinol [Zyloprim] 300 mg PO HS 08/30/16 08/01/17 History Atenolol 25 mg PO BID 08/30/16 08/01/17 History Budesonide/Formoterol Fumarate 2 puff INHALATION RT-BID 08/30/16 08/01/17 History [Symbicort 160-4.5 Mcg Inhaler] Dipyridamole-Aspirin 200-25 mg 1 tab PO BID 08/30/16 08/01/17 History [Aggrenox 25MG -200MG] Tamsulosin HCl [Flomax] 0.4 mg PO HS 08/30/16 08/01/17 History amLODIPine [Norvasc] 5 mg PO HS 08/30/16 08/01/17 History current Medications - Tylenol -albuterol -unasyn -allopurinol -norvasc -asa -coreg -lovenox -Pepcid --hydralazine -novolog insulin -Lisinopril -ativan -reglan -morphine -spironolactone Objective - Vital Signs Vital signs: Vital Signs Temp 98.5 F 08/07/17 20:00 Pulse 80 08/07/17 21:00 Resp 28 H 08/07/17 21:00 BP 156/95 08/07/17 20:00 Pulse Ox 97 08/07/17 21:00 Intake & Output 08/07/17 08/07/17 08/08/17 06:59 18:59 06:59 Intake Total 145 983 210 Output Total 1492 7545 665 Balance -21 -1552 -455 Weight 116 kg Intake: IV 820 800 180 0.9 at KVO 120 100 30 Ampicillin-Sulbactam 3 gm 100 100 In Sodium Chloride 0.9% 100 ml @ 100 mls/hr IVPB Q6HR BRENNA Rx#:[id number] D5-0.45% NaCl with KCl 600 600 150 20Meq/l 1,000 ml @ 50 mls /hr IV .Q20H BRENNA Rx#: [id number] Intake, IV Titration 100 Amount Magnesium Sulfate-D5w Pmx 100 1 gm In Dextrose/Water 1 100ml.bag @ 100 mls/hr IVPB Q1H BRENNA Rx#: [id number] Oral 30 Tube Feeding 574 83 Other 60 Output: Gastric Drainage 650 Drainage 240 340 80 Right Lower Lateral 240 340 80 Abdomen Urine 1235 1545 585 Other: Voiding Method Indwelling Catheter Indwelling Catheter Indwelling Catheter ABP, PAP, CO, CI - Last Documented Arterial Blood Pressure 186/71 - Exam General : pt is awake and able to follow simple commands HEENT: Head is atraumatic, normocephalic. Pupils equal, round. Neck is supple. There is no elevated jugular venous pressure. HEART EXAMINATION: Heart S1-S2, no murmur is heard CHEST EXAMINATION: Lungs reveal no expiratory wheezes throughout otherwise essentially clear. ABDOMEN: Soft, nontender. Bowel sounds are heard. No organomegaly noted. EXTREMITIES: 2+ peripheral pulses with no evidence of peripheral edema and no calf tenderness noted. NEUROLOGIC patient is awake, alert and oriented -3. it was noted pt is not moving his right upper ext and it is in splint - Labs CBC & Chem 7: 08/07/17 04:20 08/07/17 04:20 Labs: Abnormal Lab Results - Last 24 Hours (Table) 08/06/17 08/07/17 08/07/17 Range/Units 23:09 03:40 04:20 RBC 3.51 L (4.30-5.90) m/uL Hgb 11.1 L (13.0-17.5) gm/dL Hct 35.3 L (39.0-53.0) % MCV 100.5 H (80.0-100.0) fL Lymphocytes # 0.9 L (1.0-4.8) k/uL ABG pO2 (83-108) mmHg ABG HCO3 (21-25) mmol/L ABG Total CO2 (19-24) mmol/L Glucose (74-99) mg/dL POC Glucose (mg/dL) 155 H (75-99) mg/dL Triglycerides (<150) mg/dL HDL Cholesterol (40-60) mg/dL Homocysteine 16.04 H (4.00-14.00) umol/L 08/07/17 08/07/17 08/07/17 Range/Units 04:20 08:20 11:47 RBC (4.30-5.90) m/uL Hgb (13.0-17.5) gm/dL Hct (39.0-53.0) % MCV (80.0-100.0) fL Lymphocytes # (1.0-4.8) k/uL ABG pO2 80 L (83-108) mmHg ABG HCO3 27 H (21-25) mmol/L ABG Total CO2 28 H (19-24) mmol/L Glucose 151 H (74-99) mg/dL POC Glucose (mg/dL) 160 H (75-99) mg/dL Triglycerides 164 H (<150) mg/dL HDL Cholesterol 25 L (40-60) mg/dL Homocysteine (4.00-14.00) umol/L 08/07/17 Range/Units 17:55 RBC (4.30-5.90) m/uL Hgb (13.0-17.5) gm/dL Hct (39.0-53.0) % MCV (80.0-100.0) fL Lymphocytes # (1.0-4.8) k/uL ABG pO2 (83-108) mmHg ABG HCO3 (21-25) mmol/L ABG Total CO2 (19-24) mmol/L Glucose (74-99) mg/dL POC Glucose (mg/dL) 136 H (75-99) mg/dL Triglycerides (<150) mg/dL HDL Cholesterol (40-60) mg/dL Homocysteine (4.00-14.00) umol/L Microbiology - Last 24 Hours (Table) 08/03/17 15:30 Anaerobic Culture - Final Gallbladder 08/02/17 11:57 Blood Culture - Preliminary Blood No Growth after 120 hours Assessment and Plan Assessment: -acute cholycystis with E.coli s/p laparocopic cholecystectomy -acute resp failure , was on vent , s/p extubation on 08/07/17 -right middle lobe pna -right sided weakness, possible stroke and neurology team is seeing the pt -anemia -UTI -CHF with EF 35-40% -HTN -HLP -h/o CAD, s/p stent Plan: continue with current management , continue with symptomatic treatment , continue with broad spectrum antibiotic , follow closely with surgery , infectious disease, neurology , Neurovascular work up is indicated. prognosis remains guarded giving his multiple complex medical problems and severity. further recommendations to follow
[2017-08-07 23:48] LABS: Glucose,Whole Blood 139 mg/dL (75-99)
[2017-08-08] MEDS: INSULIN ASPART 100 UNIT/ML 1 ML 10 ML VIAL SQ SCH ×4 (00:17→18:31)
[2017-08-08] MEDS: AMPICILLIN-SULBACTAM 3 GM in SODIUM CHLORIDE 0.9% 100 ML IVPB SCH ×4 (00:17→18:35)
[2017-08-08] MEDS: METOCLOPRAMIDE 5 MG/ML 2 ML VIAL IVP SCH ×4 (00:17→18:34)
[2017-08-08 05:06] LABS: HCT 37.3 % (39.0-53.0); HGB 12.6 gm/dL (13.0-17.5); MCH 33.1 pg (25.0-35.0); MCHC 33.7 g/dL (31.0-37.0); MCV 98.2 fL (80.0-100.0); Mean Platelet Volume 8.1; Platelet Count 209 k/uL (150-450); RDW 13.7 % (11.5-15.5); WBC 7.1 k/uL (3.8-10.6)
[2017-08-08 05:46] LABS: ALT 39 U/L (21-72); AST 36 U/L (17-59); Albumin 2.8 g/dL (3.5-5.0); Alkaline Phosphatase 102 U/L (38-126); Anion Gap 10 mmol/L; Blood Urea Nitrogen 15 mg/dL (9-20); Carbon Dioxide 26 mmol/L (22-30); Chloride 103 mmol/L (98-107); Glucose 130 mg/dL (74-99); Phosphorus 3.3 mg/dL (2.5-4.5); Potassium 4.1 mmol/L (3.5-5.1); Sodium 139 mmol/L (137-145); Total Bilirubin 0.7 mg/dL (0.2-1.3); Total Protein 5.2 g/dL (6.3-8.2)
[2017-08-08 05:53] LABS: Glucose,Whole Blood 145 mg/dL (75-99)
[2017-08-08] MEDS: CARVEDILOL 6.25 MG TAB PO SCH ×2 (07:02→18:35)
[2017-08-08] MEDS: SYMBICORT 160-4.5 MCG INHALER INHALATION SCH ×3 (07:31→19:43)
[2017-08-08] MEDS: IPRATROPIUM-ALBUTEROL 3 ML NEB INHALATION SCH ×4 (07:31→19:31)
--- NOTE | 2017-08-08 08:15 | XR ---
EXAMINATION TYPE: XR chest 1V portable DATE OF EXAM: 08/08/2017 COMPARISON: Prior chest x-ray 08/07/2017 HISTORY: Pulmonary congestion, extubated, abnormal chest x-ray TECHNIQUE: Single frontal view of the chest is obtained. FINDINGS: There is been interval removal of endotracheal and NG tube. Right jugular central venous c atheter is stable the tip overlying the cavoatrial junction level. There are overlying cardiac leads. No evident pneumothorax. Interstitium is increased. Central vascularity is prominent, correlate for possible pulmonary artery hypertension. Cardiac mediastinal silhouette is stable. Patient is post med blossom sternotomy. Retrocardiac density persists. IMPRESSION: There may be a component of volume overload, pulmonary venous hypertension and interstit ial edema. Possible left lower lobe atelectasis versus pneumonia or edema and associated effusion. Ad ditional findings above.
[2017-08-08] MEDS: LISINOPRIL 5 MG TAB OG-TUBE SCH (09:17)
[2017-08-08] MEDS: FAMOTIDINE 20 MG/2 ML VIAL IV SCH ×2 (09:17→21:22)
[2017-08-08] MEDS: ASPIRIN 81 MG PO SCH (09:17)
[2017-08-08] MEDS: ENOXAPARIN 40 MG/0.4 ML SYRINGE SQ SCH (09:17)
[2017-08-08] MEDS: SPIRONOLACTONE 25 MG TAB PO SCH (09:18)
--- NOTE | 2017-08-08 09:30 | P.PN ---
Subjective Progress Note Date: 08/08/17 Principal diagnosis: bile leak XAVI output greater than 500 mL 24 hours [employer]. Extubated yesterday. Concern for possible stroke. LFTs within normal limits. Objective - Vital Signs Vital signs: Vital Signs Temp 98.4 F 08/08/17 08:00 Pulse 92 08/08/17 09:00 Resp 27 H 08/08/17 09:00 BP 165/96 08/08/17 08:00 Pulse Ox 92 L 08/08/17 09:00 Intake & Output 08/07/17 08/08/17 08/08/17 18:59 06:59 18:59 Intake Total 983 980 170 Output Total 2535 2605 440 Balance -7038 -7424 -270 Weight 111.9 kg 111.9 kg Intake: IV 800 920 170 0.9 at KVO 100 120 20 Ampicillin-Sulbactam 3 gm 100 200 In Sodium Chloride 0.9% 100 ml @ 100 mls/hr IVPB Q6HR [facility] Rx#:[id number] D5-0.45% NaCl with KCl 600 600 150 20Meq/l 1,000 ml @ 50 mls /hr IV .Q20H [facility] Rx#: [id number] Intake, IV Titration 100 Amount Magnesium Sulfate-D5w Pmx 100 1 gm In Dextrose/Water 1 100ml.bag @ 100 mls/hr IVPB Q1H [facility] Rx#: [id number] Oral 60 Tube Feeding 83 Output: Gastric Drainage 650 Drainage 340 200 Right Lower Lateral 340 200 Abdomen Urine 1545 2405 440 Other: Voiding Method Indwelling Catheter Indwelling Catheter ABP, PAP, CO, CI - Last Documented Arterial Blood Pressure 147/61 - Exam General appearance: The patient is awake in no acute distress says his name multiple times do not following direction or holding conversation. HET: Head is normocephalic and atraumatic. Pupils are equal and reactive. Oropharynx is clear without lesions. Neck: Supple without lymphadenopathy. Trachea midline. Heart: S1 S2. Regular rate and rhythm. Lungs: No crackles or wheezes are heard. Abdomen: Soft, nontender, nondistended with bowel sounds. XAVI [employer] colored drainage. Dressings clean. No peritoneal signs. No palpable organomegaly or masses. Márquez clear gina urine. Extremities: Right-sided weakness. - Labs CBC & Chem 7: 08/08/17 04:30 05/16/18 04:30 Labs: Abnormal Lab Results - Last 24 Hours (Table) 08/07/17 08/07/17 08/07/17 Range/Units 03:40 11:47 17:55 RBC (4.30-5.90) m/uL Hgb (13.0-17.5) gm/dL Hct (39.0-53.0) % Glucose (74-99) mg/dL POC Glucose (mg/dL) 160 H 136 H (75-99) mg/dL Total Protein (6.3-8.2) g/dL Albumin (3.5-5.0) g/dL Homocysteine 16.04 H (4.00-14.00) umol/L 08/07/17 08/08/17 08/08/17 Range/Units 23:46 04:30 04:30 RBC 3.80 L (4.30-5.90) m/uL Hgb 12.6 L (13.0-17.5) gm/dL Hct 37.3 L (39.0-53.0) % Glucose 130 H (74-99) mg/dL POC Glucose (mg/dL) 139 H (75-99) mg/dL Total Protein 5.2 L (6.3-8.2) g/dL Albumin 2.8 L (3.5-5.0) g/dL Homocysteine (4.00-14.00) umol/L 08/08/17 Range/Units 05:51 RBC (4.30-5.90) m/uL Hgb (13.0-17.5) gm/dL Hct (39.0-53.0) % Glucose (74-99) mg/dL POC Glucose (mg/dL) 145 H (75-99) mg/dL Total Protein (6.3-8.2) g/dL Albumin (3.5-5.0) g/dL Homocysteine (4.00-14.00) umol/L Microbiology - Last 24 Hours (Table) 08/03/17 15:30 Anaerobic Culture - Final Gallbladder 08/02/17 11:57 Blood Culture - Preliminary Blood No Growth after 120 hours Assessment and Plan (1) Bile leak, postoperative Narrative/Plan: Without jaundice liver enzymes unremarkable Current Visit: Yes Status: Acute Code(s): K91.89 - OTH POSTPROCEDURAL COMPLICATIONS AND DISORDERS OF DGSTV SYS; K83.8 - OTHER SPECIFIED DISEASES OF BILIARY TRACT SNOMED Code(s): 307569089 (2) Sepsis Current Visit: Yes Status: Acute Code(s): A41.9 - SEPSIS, UNSPECIFIED ORGANISM SNOMED Code(s): 89288266 (3) Bacteremia Current Visit: Yes Status: Acute Code(s): R78.81 - BACTEREMIA SNOMED Code( s): 5702420 (4) S/P cholecystectomy Current Visit: Yes Status: Acute Code(s): Z90.49 - ACQUIRED ABSENCE OF OTHER SPECIFIED PARTS OF DIGESTIVE TRACT SNOMED Code(s): 578143144 Plan: 1. Continue supportive measures. Neurological evaluation for possible stroke. ERCP not planned at this time but contingent on clinical course until neurological evaluation is completed. Continue to monitor XAVI output. IV antibiotics. Assessment and plan a care discussed with Dr. Barrett
[2017-08-08] MEDS: hydrALAZINE HCL 20 MG/ML 1 ML VIAL IVP PRN (10:11)
--- NOTE | 2017-08-08 10:50 | P.PN ---
Subjective Progress Note Date: 08/08/17 (Critical care time spent 35 minutes) Principal diagnosis: Uncontrolled malignant hypertension, right hemiparesis, Acute cholecystitis, empyema gallbladder Gram-negative sepsis and bacteremia, severe degree of ischemic cardiomyopathy with ejection fraction of 35%, acute on chronic systolic heart failure, coronary artery disease, 08/08/2017, patient seen eval examined during the rounds he is been off of respirator for over 24 hours breathing comfortably he is on supplemental oxygen he is been intermittently moving his right upper extremity mostly awake but has intermittent episodes of confusion family is present at bedside, patient able to swallow applesauce with pills, chest x-ray laboratory data reviewed small bilateral pleural effusion likely related to intra-abdominal processes as well as baseline cardiomyopathy 08/07/2017, patient seen eval examined during the rounds he has been on SIMV rate of 8 breathing about 16-18, FiO2 is down to 40%, patient has been placed on CPAP 5 pressure support of 5 on which she was monitor observe for over an hour and arterial blood gases reviewed weaning parameters reviewed as well patient is a 50 more awake and makes her better eye contact some movement 1/5 in right upper extremity has been noted, chest x-ray reviewed laboratory data reviewed as well care plan discussed with the primary service and nursing staff at length and family present at bedside patient was switched to CPAP 5 pressure support of 5 and spontaneous tidal volume were and 500 range with respiratory rate and high teens to low 20s no obvious respirator distress presents slight elevation in blood pressure was however noted likely related to stress of weaning, overall blood pressure is very well controlled with current intervention, patient required 2 doses of morphine overnight otherwise remains off of sedation, as per recommendation of GI services patient will probably require ERCP once extubated 08/06/2017, patient seen eval examined during the rounds patient has been taking off of sedation has been off of propofol for over an hour however noted to have slow rise in blood pressure Coreg dose has been escalated to double the dose patient is awake with a blank stare has been moving left upper and lower extremity fairly well some movement and right lower extremity is present but cannot move right upper extremity, patient has been placed on CPAP of 5 and pressure support of 5 which she tolerated fairly well but still arterial blood gases suggestive of significant hypoxemia, chest x-ray reviewed right lower lobe pneumonia improved with a small pleural effusion, laboratory data reviewed as well care plan discussed with surgical services nursing staff and patient's at length critical care time spent 45 minutes 08/05/2017, patient seen eval reexamined during the rounds currently patient remains on full ventilator support with the assist control mode sed rate is 18 breathing 18, tidal volume is 550, 8 of PEEP, FiO2 is down to 40% patient remains on propofol drip which is gradually being titrated down as per plans for sedation holiday, labs reviewed medications reviewed care plan discussed with the surgical services patient is to be started on tube feed as per their recommendation, telemetry revealed presence of intermittent episodes of the nonsustained ventricular tachycardia as well as multiple PVCs patient has been on beta blockers and calcium channel blockers which were discontinued due to severe hypotension as blood pressure has been stabilized now and going up towards we'll resume those medications likely they will help those PVCs as well. We will defer cardiovascular services for initiation or maintenance of amiodarone. Patient is making adequate urine, chest x-ray laboratory data and medications reviewed noted repeat blood cultures have been negative so far ROM of white cell count is normalize arterial blood gases are adequate chest x-ray reviewed note is made of the NG tube improve aeration noted bilateral bases 08/04/2017, patient seen eval examined during the rounds patient remains sedated with propofol drip attempts to wean oxygen down has been unsuccessful overnight however able to bring down the oxygen to 40% from 50% PEEP has been lowered from 10-8, patient is now taken off a few fed drip ventilator setting is stable but the patient continued to manifest respiratory acidosis vent setting include assist control rate of 18 and tidal volume of 500 PEEP of 1060% oxygen respiratory rate is 12 he is calm arousable opens eyes follow simple commands family is present at the bedside care plan discussed with the family at length in light of severe degree of ischemic cardiomyopathy and very low ejection fraction patient will be kept on respirator for another 24-48 hours and slowly will be weaned, propofol is 15 mics, patient is getting Accu-Cheks with relatively stable sugars, currently patient is on D5 half normal saline 20 K meq of KCl with 100 mL an hour. Chest x-ray from this morning reviewed basal atelectasis and right-sided effusion and right lower lobe consolidation is seen , operative findings reviewed empyema gallbladder noted with severe acute cholecystitis culture reviewed my E. coli is sensitive to Unasyn 01/2018, patient seen and evaluated examined in the ICU this patient has been admitted into the hospital with generalized weakness syncope intermittent runs of V. tach with baseline history of severe degree of cardiomyopathy ischemic in nature with ejection fraction just 30-35% patient has a patchy infiltrate on the right side is being treated for pneumonia and sepsis, around 9 PM patient had episode of increasing shortness of breath increases abdominal pain a computed tomography scan of the abdominal and pelvis revealed presence of cholecystitis, general surgery has been consulted patient continued to increase respiratory distress eventually brought into the ICU where he was intubated patient was initially hypertensive however postintubation has episode of hypertension and earlier this morning required fluid resuscitation he did receive Lasix with some urine output yesterday currently Lasix is being held at it appears that patient is somewhat volume depleted culture results and reports are reviewed patient is growing gram-negative rods in the blood likely source being ascending cholangitis versus urinary tract infection with first being more likely urine culture however is pending urinalysis suggestive of inflammatory processes though. His ventilator settings reviewed currently patient is on assist control rate of 18 breathing 22 he is on tidal volume of 500, PEEP is 10 and FiO2 was initially 100% and gradually titrated down to 60% his lactic acid level was mildly elevated pro calcitonin was elevated to, currently patient is on amiodarone map is around 65-70 he is also on propofol 15 mics normal saline KVO amiodarone drip as 0.5 mg/m, patient is well sedated with current ventilator setting and sedation and also being treated with broad- spectrum antibiotics with IV Zosyn his medications are reviewed given that hypertension is present antihypertensive agents are being held, patient will need IV axis but triple-lumen catheter as well as and A-line consent are being obtained 81-year-old male with history of ischemic cardiomyopathy ejection fraction of 30 -35% has not been feeling well for the last 2-3 week with increasing shortness of breath patient does have a history of chronic lower extremity edema with a history of coronary artery disease status post CABG back in 1995. Patient for the last 2 weeks has not been feeling well has been more short of breath than usual has dry nonproductive cough as well which is intermittent off and on due to progressive increasing shortness of breath lately has been feeling weak as well with some intermittent episodes of dizziness lightheadedness patient came into the emergency department he did spike a fever up to 102, over his white cell count were normal chest x-ray showed borderline cardiomegaly and some early infiltrate in the right midlung field cannot be excluded. Patient about 2 weeks ago had a recent fall however he never lost his consciousness no seizure -like activity was seen patient appears to have developed nondisplaced left 10th rib fracture as seen on the rib x-rays. On arrival patient appeared to be in acute exacerbation of CHF likely acute on chronic systolic heart failure with elevated BNP of over 1800, in addition to above patient had echocardiogram which revealed ejection fraction 30% with inferior basal hypokinesia, patient also noted to have intermittent runs of PVCs and has been placed on IV amiodarone, this requestioning patient denies any chest pain or radiation of pain denies any sputum production denies any night sweats fever or chills he denies any seizure-like activity he did have intermittent dizziness usually turning around. He denies any bowel or bladder dysfunction he has chronic lower extremity trace edema. Objective - Vital Signs Vital signs: Vital Signs Temp 98.4 F 08/08/17 08:00 Pulse 92 08/08/17 09:00 Resp 27 H 08/08/17 09:00 BP 165/96 08/08/17 08:00 Pulse Ox 92 L 08/08/17 09:00 Intake & Output 08/07/17 08/08/17 08/08/17 18:59 06:59 18:59 Intake Total 983 980 170 Output Total 2535 3595 440 Balance -1297 -0739 -662 Weight 111.9 kg 111.9 kg Intake: IV 800 920 170 0.9 at KVO 100 120 20 Ampicillin-Sulbactam 3 gm 100 200 In Sodium Chloride 0.9% 100 ml @ 100 mls/hr IVPB Q6HR [facility] Rx#:[id number] D5-0.45% NaCl with KCl 600 600 150 20Meq/l 1,000 ml @ 50 mls /hr IV .Q20H [facility] Rx#: [id number] Intake, IV Titration 100 Amount Magnesium Sulfate-D5w Pmx 100 1 gm In Dextrose/Water 1 100ml.bag @ 100 mls/hr IVPB Q1H [facility] Rx#: [id number] Oral 60 Tube Feeding 83 Output: Gastric Drainage 650 Drainage 340 200 Right Lower Lateral 340 200 Abdomen Urine 1545 2405 440 Other: Voiding Method Indwelling Catheter Indwelling Catheter ABP, PAP, CO, CI - Last Documented Arterial Blood Pressure 147/61 - Exam - Constitutional General appearance: average body habitus, awake and opens eyes follow simple commands- EENT Eyes: EOMI, PERRLA, normal appearance ENT: hard of hearing Ears: bilateral: normal - Neck Neck: normal ROM Carotids: right: bruit absent, bilateral: upstroke normal Thyroid: bilateral: normal size - Respiratory Respiratory: bilateral: CTA, few basal crackles bilaterally are present - Cardiovascular Heart sounds: normal: S1 and S2 no gallop rub or murmur - Gastrointestinal General gastrointestinal: Normal to hypoactive bowel sounds, soft - Integumentary Integumentary: normal, normal turgor - Neurologic More awake follows simple commands intermittently moving all 4 extremity more strength in right upper extremity has been noted as he can lift it against gravity - Musculoskeletal Musculoskeletal: Well developed, week right upper extremity - Psychiatric Psychiatric: Unable to assess - Labs CBC & Chem 7: 08/08/17 04:30 08/08/17 04:30 Labs: Abnormal Lab Results - Last 24 Hours (Table) 08/07/17 08/07/17 08/07/17 Range/Units 03:40 11:47 17:55 RBC (4.30-5.90) m/uL Hgb (13.0-17.5) gm/dL Hct (39.0-53.0) % Glucose (74-99) mg/dL POC Glucose (mg/dL) 160 H 136 H (75-99) mg/dL Total Protein (6.3-8.2) g/dL Albumin (3.5-5.0) g/dL Homocysteine 16.04 H (4.00-14.00) umol/L 08/07/17 08/08/17 08/08/17 Range/Units 23:46 04:30 04:30 RBC 3.80 L (4.30-5.90) m/uL Hgb 12.6 L (13.0-17.5) gm/dL Hct 37.3 L (39.0-53.0) % Glucose 130 H (74-99) mg/dL POC Glucose (mg/dL) 139 H (75-99) mg/dL Total Protein 5.2 L (6.3-8.2) g/dL Albumin 2.8 L (3.5-5.0) g/dL Homocysteine (4.00-14.00) umol/L 08/08/17 Range/Units 05:51 RBC (4.30-5.90) m/uL Hgb (13.0-17.5) gm/dL Hct (39.0-53.0) % Glucose (74-99) mg/dL POC Glucose (mg/dL) 145 H (75-99) mg/dL Total Protein (6.3-8.2) g/dL Albumin (3.5-5.0) g/dL Homocysteine (4.00-14.00) umol/L Microbiology - Last 24 Hours (Table) 08/03/17 15:30 Anaerobic Culture - Final Gallbladder 08/02/17 11:57 Blood Culture - Preliminary Blood No Growth after 120 hours Assessment and Plan Assessment: Uncontrolled malignant hypertension, relatively better under control Right upper extremity weakness evaluated for left hemispheric stroke likely TIA , patient appears to be recovering with 2 negative computed tomography scan of the head Intermittent runs of nonsustained ventricular tachycardia and multiple PVCs with stable electrolytes likely related to ischemic cardiomyopathy Severe sepsis and septic shock related to gram-negative bacteremia related to empyema bladder Empyema gallbladder Acute cholangitis and gram-negative bacteremia Acute cholecystitis Early developing pneumonia in right lower lobe with effusion Acute hypoxic and hypercapnic respirator failure multifactorial related to above Spiking fever may be related to above however will follow up on urine culture results and report Acute exacerbation of CHF likely acute on chronic systolic heart failure with ejection fraction of 30-35% Status post fall with left 10th rib fracture Coronary artery disease and ischemic cardiomyopathy Intermittent episodes of PVCs and arrhythmia, patient is on amiodarone currently History of BPH Dyslipidemia hypertension hypertensive cardiovascular disease Plan: Continue Coreg continue to hold Norvasc, continue labetalol 20 mg IV every 4 when necessary and along with hydralazine Computed tomography scan of the head without contrast results and reports reviewed Reviewed neurology recommendations Patient is spontaneously breathing with adequate oxygenation Observe off of vasopressors Medicine adjusted Continued DVT and peptic ulcer disease prophylaxis Electrolyte replacement as tolerated Surgical consultation recommendations reviewed Broad-spectrum antibiotics Breathing treatment Follow-up on urine and blood culture results and report Optimize cardiovascular therapy Repeat labs and x-ray tomorrow Physical therapy increase activity as tolerated Plans for ERCP and/or advancing diet as per GI services Discussed with surgical services, nursing staff, patient's at length Time with Patient: Greater than 30
[2017-08-08] MEDS ORDERED: DEXTROSE 5% IN WATER 100 ML with AMIODARONE 150 MG IV ONE (11:39)
--- NOTE | 2017-08-08 12:25 | P.PN ---
Subjective this is a pleasant 81 yo M admitted with acute sepsis and acute resp failure , was intubated and s/p extubation today 08/07/17. is following the pt closely , ID has been consulted, the pt also was suspicious for weakness of his right upper ext and neurology has been consulted for possible stroke 08/07/17 today pt was extubated when I saw the pt he could open his eyes spontaneously , and follow command , he was not moving his right upper ext and it was in splint , pt could not provide history as he was just extubated , whoever he was noticed to breath comfortabley and not in resp distress 08/08/2017 Patient is a breathing comfortably, he opens his eyes spontaneously he doesn't follow commands as clearly sometimes suite after being the orders and he doesn' t follow all the comments, as per staff his mental status fluctuates, little bit movement in his right upper extremity as per staff, there is less drainage from his due to from 400+ yesterday to 160 mL today Review of Systems unable to perform as pt could not provide history Home Medications Medication Instructions Recorded Confirmed Type Allopurinol [Zyloprim] 300 mg PO HS 08/30/16 08/01/17 History Atenolol 25 mg PO BID 08/30/16 08/01/17 History Budesonide/Formoterol Fumarate 2 puff INHALATION RT-BID 08/30/16 08/01/17 History [Symbicort 160-4.5 Mcg Inhaler] Dipyridamole-Aspirin 200-25 mg 1 tab PO BID 08/30/16 08/01/17 History [Aggrenox 25MG -200MG] Tamsulosin HCl [Flomax] 0.4 mg PO HS 08/30/16 08/01/17 History amLODIPine [Norvasc] 5 mg PO HS 08/30/16 08/01/17 History current Medications - Tylenol -albuterol -unasyn -allopurinol -norvasc -asa -coreg -lovenox -Pepcid --hydralazine -novolog insulin -Lisinopril -ativan -reglan -morphine -spironolactone Objective - Vital Signs Vital signs: Vital Signs Temp 98.4 F 08/08/17 08:00 Pulse 90 08/08/17 11:21 Resp 19 08/08/17 11:00 BP 117/77 08/08/17 11:00 Pulse Ox 95 08/08/17 11:00 Intake & Output 08/07/17 08/08/17 08/08/17 18:59 06:59 18:59 Intake Total 983 980 290 Output Total 2535 2605 590 Balance -1552 -1625 -300 Weight 111.9 kg 111.9 kg Intake: IV 800 920 290 0.9 at KVO 100 120 40 Ampicillin-Sulbactam 3 gm 100 200 In Sodium Chloride 0.9% 100 ml @ 100 mls/hr IVPB Q6HR [facility] Rx#:[id number] D5-0.45% NaCl with KCl 600 600 250 20Meq/l 1,000 ml @ 50 mls /hr IV .Q20H [facility] Rx#: [id number] Intake, IV Titration 100 Amount Magnesium Sulfate-D5w Pmx 100 1 gm In Dextrose/Water 1 100ml.bag @ 100 mls/hr IVPB Q1H [facility] Rx#: [id number] Oral 60 Tube Feeding 83 Output: Gastric Drainage 650 Drainage 340 200 Right Lower Lateral 340 200 Abdomen Urine 1545 2405 590 Other: Voiding Method Indwelling Catheter Indwelling Catheter Indwelling Catheter ABP, PAP, CO, CI - Last Documented Arterial Blood Pressure 157/71 - Exam General : pt is awake and able to follow simple commands HEENT: Head is atraumatic, normocephalic. Pupils equal, round. Neck is supple. There is no elevated jugular venous pressure. HEART EXAMINATION: Heart S1-S2, no murmur is heard CHEST EXAMINATION: Lungs reveal no expiratory wheezes throughout otherwise essentially clear. ABDOMEN: Soft, nontender. Bowel sounds are heard. No organomegaly noted. EXTREMITIES: 2+ peripheral pulses with no evidence of peripheral edema and no calf tenderness noted. NEUROLOGIC patient is awake, alert and oriented -3. it was noted pt is not moving his right upper ext and it is in splint - Labs CBC & Chem 7: 08/08/17 04:30 08/08/17 04:30 Labs: Abnormal Lab Results - Last 24 Hours (Table) 08/07/17 08/07/17 08/07/17 Range/Units 03:40 17:55 23:46 RBC (4.30-5.90) m/uL Hgb (13.0-17.5) gm/dL Hct (39.0-53.0) % Glucose (74-99) mg/dL POC Glucose (mg/dL) 136 H 139 H (75-99) mg/dL Total Protein (6.3-8.2) g/dL Albumin (3.5-5.0) g/dL Homocysteine 16.04 H (4.00-14.00) umol/L 08/08/17 08/08/17 08/08/17 Range/Units 04:30 04:30 05:51 RBC 3.80 L (4.30-5.90) m/uL Hgb 12.6 L (13.0-17.5) gm/dL Hct 37.3 L (39.0-53.0) % Glucose 130 H (74-99) mg/dL POC Glucose (mg/dL) 145 H (75-99) mg/dL Total Protein 5.2 L (6.3-8.2) g/dL Albumin 2.8 L (3.5-5.0) g/dL Homocysteine (4.00-14.00) umol/L Microbiology - Last 24 Hours (Table) 08/03/17 15:30 Anaerobic Culture - Final Gallbladder 08/02/17 11:57 Blood Culture - Preliminary Blood No Growth after 120 hours Assessment and Plan Assessment: -acute delirium, patient has fluctuating in his mental status -acute cholycystis with E.coli s/p laparocopic cholecystectomy -acute resp failure , was on vent , s/p extubation on 08/07/17 -right middle lobe pna -right sided weakness, possible stroke and neurology team is seeing the pt -anemia -UTI -CHF with EF 35-40% -HTN -HLP -h/o CAD, s/p stent Plan: continue with current management , continue with symptomatic treatment , continue with broad spectrum antibiotic , follow closely with surgery , infectious disease, neurology , Neurovascular work up is indicated. prognosis remains guarded giving his multiple complex medical problems and severity. further recommendations to follow
[2017-08-08] MEDS: AMIODARONE 450 MG in DEXTROSE 5% IN WATER 250 ML IV SCH ×6 (12:28→23:36)
[2017-08-08] MEDS: CYANOCOBALAMIN-FA-PYRIDOXINE 1 EACH TAB PO SCH (12:28)
[2017-08-08 12:40] LABS: Glucose,Whole Blood 150 mg/dL (75-99)
--- NOTE | 2017-08-08 15:52 | P.PN ---
Subjective Progress Note Date: 08/08/17 Principal diagnosis: Patient is an 81-year-old male who is being followed by the neurology service for right-sided weakness. Patient has been having cough and fever and came to [facility] on 08/01/2017 for further evaluation. Patient was found to have pneumonia as well as acute cholecystitis and patient underwent cholecystectomy on 08/03/2017. The following day after surgery, patient was noted to be moving all 4 extremities. Patient does have chronic lower extremity weakness. Nursing staff noticed patient was not moving his right side compared to his left side 2 days following surgery. Stat computed tomography scan of the brain was done which showed no acute findings. CT did show generalized atrophy and small vessel ischemic changes. Patient is currently in the ICU setting. At the time of my evaluation, patient's resting comfortably in bed and appears to be in no acute distress. Patient continues to have right-sided weakness. 08/08/2017 Patient is a pleasant 81-year-old male who is being followed by the neurology service for right-sided weakness. Patient is seen today in the ICU setting. Patient is extubated. CT of the brain shows moderate ventriculomegaly. CT shows patchy white matter hypodensities likely related to chronic small vessel ischemic changes. is awake and interactive. Patient is moving right upper and lower extremity better as compared to yesterday. Patient had a swallow evaluation which she passed and is taking small amounts of applesauce. Chest x-ray showed small bilateral pleural effusion. Surgery is following. EEG did show mild encephalopathy. At the time of my evaluation, patient's resting comfortably in bed and appears to be in no acute distress. Objective - Vital Signs Vital signs: Vital Signs Temp 98.1 F 08/08/17 12:00 Pulse 122 H 08/08/17 14:30 Resp 23 08/08/17 14:30 BP 120/79 08/08/17 14:30 Pulse Ox 99 08/08/17 14:30 Intake & Output 08/07/17 08/08/17 08/08/17 18:59 06:59 18:59 Intake Total 983 980 570 Output Total 1508 4403 900 Balance -1552 -1625 -330 Weight 111.9 kg 111.9 kg Intake: IV 800 920 570 0.9 at KVO 100 120 70 Ampicillin-Sulbactam 3 gm 100 200 100 In Sodium Chloride 0.9% 100 ml @ 100 mls/hr IVPB Q6HR [facility] Rx#:[id number] D5-0.45% NaCl with KCl 600 600 400 20Meq/l 1,000 ml @ 50 mls /hr IV .Q20H [facility] Rx#: [id number] Intake, IV Titration 100 Amount Magnesium Sulfate-D5w Pmx 100 1 gm In Dextrose/Water 1 100ml.bag @ 100 mls/hr IVPB Q1H [facility] Rx#: [id number] Oral 60 Tube Feeding 83 Output: Gastric Drainage 650 Drainage 340 200 Right Lower Lateral 340 200 Abdomen Urine 1545 2405 900 Other: Voiding Method Indwelling Catheter Indwelling Catheter Indwelling Catheter ABP, PAP, CO, CI - Last Documented Arterial Blood Pressure 123/65 - Exam PHYSICAL EXAM: GENERAL APPEARANCE: Patient is a well-developed, male who appears to be in no acute distress. HEENT: Normocephalic, atraumatic, no facial asymmetry is seen. Neck is supple with no masses felt. CARDIOVASCULAR: Regular rate and rhythm. ABDOMEN: Nontender, nondistended. EXTREMITIES: Show no edema or clubbing. NEUROLOGICAL EXAM: Patient is awake, and does follow commands with all 4 extremities. Strength is 4/5 in the left upper extremity and 3/5 in the right upper extremity, 3/5 in the right lower extremity and 4+/5 in the left lower extremity. Sensory exam was not performed with meaningful results as patient is extremely hard of hearing. No tremors or seizure-like activity is noted. No obvious facial asymmetry is seen. - Labs CBC & Chem 7: 08/08/17 04:30 08/08/17 04:30 Labs: Abnormal Lab Results - Last 24 Hours (Table) 08/07/17 08/07/17 08/08/17 Range/Units 17:55 23:46 04:30 RBC (4.30-5.90) m/uL Hgb (13.0-17.5) gm/dL Hct (39.0-53.0) % Glucose 130 H (74-99) mg/dL POC Glucose (mg/dL) 136 H 139 H (75-99) mg/dL Total Protein 5.2 L (6.3-8.2) g/dL Albumin 2.8 L (3.5-5.0) g/dL 08/08/17 08/08/17 08/08/17 Range/Units 04:30 05:51 12:39 RBC 3.80 L (4.30-5.90) m/uL Hgb 12.6 L (13.0-17.5) gm/dL Hct 37.3 L (39.0-53.0) % Glucose (74-99) mg/dL POC Glucose (mg/dL) 145 H 150 H (75-99) mg/dL Total Protein (6.3-8.2) g/dL Albumin (3.5-5.0) g/dL Microbiology - Last 24 Hours (Table) 08/02/17 11:57 Blood Culture - Final Blood No Growth after 144 hours 08/03/17 15:30 Anaerobic Culture - Final Gallbladder Assessment and Plan Plan: Impression: 1. Acute ischemic stroke, likely left middle cerebral artery distribution 2. Right sided weakness 3. Generalized weakness 4. Status post cholecystectomy 5. Pneumonia Recommendation: Patient does appear to have suffered acute ischemic stroke in the left MCA distribution. Continue antiplatelet therapy. Patient continues to have right-sided weakness which is improving. Initial computed tomography scan of the brain showed no acute findings. 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 EEG showed mild encephalopathy. Carotid Doppler showed no significant stenosis. Lipid panel showed elevated triglycerides of 164 and low HDL of 25. Consider statin therapy. Homocystine level was elevated at 16.04. Continue Foltx daily. I will order MRI of the brain now that patient is extubated. I recommend strict blood pressure control as his blood pressure can become quite elevated. I recommend PT/OT to evaluate and treat. I will continue to follow with you. Further recommendations to follow. I performed an examination of the patient and discussed the management with the TOOL PROGRAMMER. I have reviewed the TOOL PROGRAMMER notes and agree with the findings and plan of care.
--- NOTE | 2017-08-08 17:01 | P.PN ---
Subjective Progress Note Date: 08/08/17 Principal diagnosis: Acute cholecystitis, sepsis, nonsustained V. tach This patient is extubated. She seemed to slow in responding to verbal commands. But seems to be appropriate. The right thumb seemed to be relatively weak. Patient has a having runs of nonsustained V. tach again. We will start him back on IV amiodarone. Will increase activity as tolerated. We will put him on by mouth amiodarone after the treatment is completed. 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 Objective - Vital Signs Vital signs: Vital Signs Temp 98.1 F 08/08/17 12:00 Pulse 117 H 08/08/17 15:55 Resp 23 08/08/17 14:30 BP 120/79 08/08/17 14:30 Pulse Ox 99 08/08/17 14:30 Intake & Output 08/07/17 08/08/17 08/08/17 18:59 06:59 18:59 Intake Total 983 980 570 Output Total 2535 8455 900 Balance -1551 -7128 -330 Weight 111.9 kg 111.9 kg Intake: IV 800 920 570 0.9 at KVO 100 120 70 Ampicillin-Sulbactam 3 gm 100 200 100 In Sodium Chloride 0.9% 100 ml @ 100 mls/hr IVPB Q6HR [facility] Rx#:[id number] D5-0.45% NaCl with KCl 600 600 400 20Meq/l 1,000 ml @ 50 mls /hr IV .Q20H [facility] Rx#: [id number] Intake, IV Titration 100 Amount Magnesium Sulfate-D5w Pmx 100 1 gm In Dextrose/Water 1 100ml.bag @ 100 mls/hr IVPB Q1H [facility] Rx#: [id number] Oral 60 Tube Feeding 83 Output: Gastric Drainage 650 Drainage 340 200 Right Lower Lateral 340 200 Abdomen Urine 1545 2405 900 Other: Voiding Method Indwelling Catheter Indwelling Catheter Indwelling Catheter ABP, PAP, CO, CI - Last Documented Arterial Blood Pressure 123/65 - Labs CBC & Chem 7: 08/08/17 04:30 08/08/17 04:30 Labs: Abnormal Lab Results - Last 24 Hours (Table) 08/07/17 08/07/17 08/08/17 Range/Units 17:55 23:46 04:30 RBC (4.30-5.90) m/uL Hgb (13.0-17.5) gm/dL Hct (39.0-53.0) % Glucose 130 H (74-99) mg/dL POC Glucose (mg/dL) 136 H 139 H (75-99) mg/dL Total Protein 5.2 L (6.3-8.2) g/dL Albumin 2.8 L (3.5-5.0) g/dL 08/08/17 08/08/17 08/08/17 Range/Units 04:30 05:51 12:39 RBC 3.80 L (4.30-5.90) m/uL Hgb 12.6 L (13.0-17.5) gm/dL Hct 37.3 L (39.0-53.0) % Glucose (74-99) mg/dL POC Glucose (mg/dL) 145 H 150 H (75-99) mg/dL Total Protein (6.3-8.2) g/dL Albumin (3.5-5.0) g/dL Microbiology - Last 24 Hours (Table) 08/02/17 11:57 Blood Culture - Final Blood No Growth after 144 hours 08/03/17 15:30 Anaerobic Culture - Final Gallbladder Assessment and Plan (1) Nonsustained ventricular tachycardia Current Visit: Yes Status: Acute Code(s): I47.2 - VENTRICULAR TACHYCARDIA SNOMED Code(s): 164278855 (2) Cholecystitis Current Visit: Yes Status: Acute Code(s): K81.9 - CHOLECYSTITIS, UNSPECIFIED SNOMED Code(s): 95671703 (3) Coronary artery disease Current Visit: Yes Status: Acute Code(s): I25.10 - ATHSCL HEART DISEASE OF [place] CORONARY ARTERY W/O ANG PCTRS SNOMED Code(s): 12496990 (4) Systolic heart failure Current Visit: Yes Status: Acute Code(s): I50.20 - UNSPECIFIED SYSTOLIC ( CONGESTIVE) HEART FAILURE SNOMED Code(s): 217860642 (5) Cardiomyopathy Current Visit: Yes Status: Acute Code(s): I42.9 - CARDIOMYOPATHY, UNSPECIFIED SNOMED Code(s): 63304282 (6) CVA (cerebral vascular accident) Current Visit: Yes Status: Acute Code(s): I63.9 - CEREBRAL INFARCTION, UNSPECIFIED SNOMED Code(s): 484166895 Plan: Patient is started on IV amiodarone with the plan to stay change to by mouth amiodarone. Increase activity as tolerated. Advance diet as instructed with the surgeon.
--- NOTE | 2017-08-08 18:23 | P.PN ---
Subjective Progress Note Date: 08/08/17 Principal diagnosis: Status post cholecystectomy for empyema of the gallbladder, postoperative bile leak The patient has been extubated. He is alert. Denies pain. He is having some movement in his right upper extremity. He did pass a swallow evaluation today. He's taking some small amounts of full liquids. Objective - Vital Signs Vital signs: Vital Signs Temp 98.2 F 08/08/17 16:00 Pulse 118 H 08/08/17 17:15 Resp 20 08/08/17 17:15 BP 154/96 08/08/17 17:15 Pulse Ox 97 08/08/17 17:15 Intake & Output 08/07/17 08/08/17 08/08/17 18:59 06:59 18:59 Intake Total 983 980 850 Output Total 2535 2605 1240 Balance -1552 -1625 -390 Weight 111.9 kg 111.9 kg Intake: IV 800 920 850 0.9 at KVO 100 120 100 Ampicillin-Sulbactam 3 gm 100 200 200 In Sodium Chloride 0.9% 100 ml @ 100 mls/hr IVPB Q6HR [facility] Rx#:[id number] D5-0.45% NaCl with KCl 600 600 550 20Meq/l 1,000 ml @ 50 mls /hr IV .Q20H [facility] Rx#: [id number] Intake, IV Titration 100 Amount Magnesium Sulfate-D5w Pmx 100 1 gm In Dextrose/Water 1 100ml.bag @ 100 mls/hr IVPB Q1H [facility] Rx#: [id number] Oral 60 Tube Feeding 83 Output: Gastric Drainage 650 Drainage 340 200 Right Lower Lateral 340 200 Abdomen Urine 1545 2405 1240 Other: Voiding Method Indwelling Catheter Indwelling Catheter Indwelling Catheter ABP, PAP, CO, CI - Last Documented Arterial Blood Pressure 181/86 - Constitutional General appearance: Present: cooperative, no acute distress - Cardiovascular Rhythm: other (Tachycardic) - Gastrointestinal General gastrointestinal: Present: normal bowel sounds, soft Localized gastrointestinal: surgical scar: diffuse (The incision is healing without cellulitis. The XAVI is bilious. The amount of drainage has been decreasing.) - Labs CBC & Chem 7: 08/08/17 04:30 08/08/17 04:30 Labs: Abnormal Lab Results - Last 24 Hours (Table) 08/07/17 08/08/17 08/08/17 Range/Units 23:46 04:30 04:30 RBC 3.80 L (4.30-5.90) m/uL Hgb 12.6 L (13.0-17.5) gm/dL Hct 37.3 L (39.0-53.0) % Glucose 130 H (74-99) mg/dL POC Glucose (mg/dL) 139 H (75-99) mg/dL Total Protein 5.2 L (6.3-8.2) g/dL Albumin 2.8 L (3.5-5.0) g/dL 08/08/17 08/08/17 Range/Units 05:51 12:39 RBC (4.30-5.90) m/uL Hgb (13.0-17.5) gm/dL Hct (39.0-53.0) % Glucose (74-99) mg/dL POC Glucose (mg/dL) 145 H 150 H (75-99) mg/dL Total Protein (6.3-8.2) g/dL Albumin (3.5-5.0) g/dL Microbiology - Last 24 Hours (Table) 08/02/17 11:57 Blood Culture - Final Blood No Growth after 144 hours 08/03/17 15:30 Anaerobic Culture - Final Gallbladder Assessment and Plan (1) Cholecystitis Current Visit: Yes Status: Acute Code(s): K81.9 - CHOLECYSTITIS, UNSPECIFIED SNOMED Code(s): 15950113 (2) Bile leak, postoperative Current Visit: Yes Status: Acute Code(s): K91.89 - OTH POSTPROCEDURAL COMPLICATIONS AND DISORDERS OF DGSTV SYS; K83.8 - OTHER SPECIFIED DISEASES OF BILIARY TRACT SNOMED Code(s): 294530954 (3) Empyema of gallbladder Current Visit: Yes Status: Acute Code(s): K81.0 - ACUTE CHOLECYSTITIS SNOMED Code(s): 43597908 (4) Systolic heart failure Current Visit: Yes Status: Acute Code(s): I50.20 - UNSPECIFIED SYSTOLIC ( CONGESTIVE) HEART FAILURE SNOMED Code(s): 075862831 Plan: He is being treated for tachycardia and runs of V. tach. He's also having hypertension. A MRI of the head was ordered however he is not stable at this point to go down for that. The bile leak is currently controlled with the XAVI drain. He will need a ERCP when he is more medically stable. On antibiotics for the E. coli sepsis. Progressing slowly.
[2017-08-08] MEDS: LABETALOL 5 MG/ML VIAL MDV IVP PRN (18:51)
[2017-08-08] MEDS: amLODIPine 5 MG TAB PO SCH (21:22)
[2017-08-08] MEDS: ALLOPURINOL 300 MG TAB PO SCH ×2 (21:22→21:28)
--- NOTE | 2017-08-08 22:05 | PN ---
PROGRESS NOTE DATE OF SERVICE: 08/08/2017. REASON FOR FOLLOWUP: E. coli bacteremia secondary to acute cholecystitis. INTERVAL HISTORY: The patient is afebrile. The patient continues to be slightly lethargic. Oral intake remains to be poor. No nausea, no vomiting or any diarrhea. He was unable to provide any reliable history. EXAMINATION: Blood pressure 151/68 with a pulse of 78, temperature of 98. He is 100% on 2L nasal cannula. General description is an elderly male lying in bed in no distress. RESPIRATORY SYSTEM: Unlabored breathing with decreased breath sounds at the base. No wheeze. HEART: S1, S2. Regular rate and rhythm. ABDOMEN: Soft. No tenderness. LABS: Hemoglobin 12.6, white count 7.9 with a BUN of 15, creatinine 0.70. DIAGNOSTIC IMPRESSION AND PLAN: Patient with Escherichia coli bacteremia secondary to the acute cholecystitis, status post cholecystectomy. Followup blood culture negative. Currently on Unasyn. Hopefully finish therapy with oral antibiotic when his condition stabilizes. Continue supportive care. MMODL / IJN: [id number] /
[2017-08-09 00:14] LABS: Glucose,Whole Blood 133 mg/dL (75-99)
[2017-08-09] MEDS: METOCLOPRAMIDE 5 MG/ML 2 ML VIAL IVP SCH ×4 (00:21→17:59)
[2017-08-09] MEDS: AMPICILLIN-SULBACTAM 3 GM in SODIUM CHLORIDE 0.9% 100 ML IVPB SCH ×4 (00:21→17:56)
[2017-08-09] MEDS: INSULIN ASPART 100 UNIT/ML 1 ML 10 ML VIAL SQ SCH ×4 (00:21→17:55)
[2017-08-09] MEDS: hydrALAZINE HCL 20 MG/ML 1 ML VIAL IVP PRN (00:21)
[2017-08-09 05:30] LABS: Glucose,Whole Blood 125 mg/dL (75-99)
[2017-08-09] MEDS: D5-0.45% NACL WITH KCL 20MEQ/L 1,000 ML IV SCH (05:31)
[2017-08-09 06:26] LABS: Basophils % (A) 0 %; Eosinophils # (A) 0.2 k/uL (0-0.7); Eosinophils % (A) 2 %; HCT 37.4 % (39.0-53.0); HGB 12.4 gm/dL (13.0-17.5); Lymphocytes # (A) 1.4 k/uL (1.0-4.8); Lymphocytes % (A) 17 %; MCH 32.7 pg (25.0-35.0); MCHC 33.2 g/dL (31.0-37.0); MCV 98.5 fL (80.0-100.0); Monocytes # (A) 0.5 k/uL (0-1.0); Monocytes % (A) 6 %; Neutrophils % (A) 73 %; Platelet Count 230 k/uL (150-450); RDW 14.1 % (11.5-15.5); WBC 8.2 k/uL (3.8-10.6)
[2017-08-09 06:35] LABS: Anion Gap 11 mmol/L; Blood Urea Nitrogen 16 mg/dL (9-20); Calcium 8.9 mg/dL (8.4-10.2); Carbon Dioxide 25 mmol/L (22-30); Chloride 103 mmol/L (98-107); Glucose 125 mg/dL (74-99); Phosphorus 3.8 mg/dL (2.5-4.5); Potassium 4.1 mmol/L (3.5-5.1); Sodium 139 mmol/L (137-145)
[2017-08-09] MEDS: SYMBICORT 160-4.5 MCG INHALER INHALATION SCH ×2 (07:05→19:20)
[2017-08-09] MEDS: IPRATROPIUM-ALBUTEROL 3 ML NEB INHALATION SCH ×4 (07:05→19:20)
[2017-08-09] MEDS: CARVEDILOL 6.25 MG TAB PO SCH ×2 (08:50→17:56)
[2017-08-09] MEDS: FAMOTIDINE 20 MG/2 ML VIAL IV SCH ×2 (08:51→20:46)
[2017-08-09] MEDS: ASPIRIN 81 MG PO SCH (08:51)
[2017-08-09] MEDS: ENOXAPARIN 40 MG/0.4 ML SYRINGE SQ SCH (08:51)
[2017-08-09] MEDS: SPIRONOLACTONE 25 MG TAB PO SCH (08:51)
[2017-08-09] MEDS: CYANOCOBALAMIN-FA-PYRIDOXINE 1 EACH TAB PO SCH (08:51)
[2017-08-09] MEDS: LISINOPRIL 5 MG TAB OG-TUBE SCH (08:51)
--- NOTE | 2017-08-09 09:52 | P.PN ---
Subjective Progress Note Date: 08/09/17 Principal diagnosis: bile leak XAVI output improved less than 100 mL 24 hours. Concern for possible stroke. Objective - Vital Signs Vital signs: Vital Signs Temp 97.6 F 08/09/17 05:00 Pulse 95 08/09/17 07:16 Resp 27 H 08/09/17 07:00 BP 149/83 08/09/17 07:00 Pulse Ox 97 08/09/17 07:00 Intake & Output 08/08/17 08/09/17 08/09/17 18:59 06:59 18:59 Intake Total 9816.968 2014.35 76.7 Output Total 1380 1545 115 Balance -258.216 -348.65 -38.3 Weight 111.9 kg 106.5 kg 106.5 kg Intake: IV 910 993.7 76.7 0.9 at KVO 110 110 10 Amiodarone 450 mg In 183.7 16.7 Dextrose 5% in Water 250 ml @ 1 MG/MIN 34.53 mls/ hr IV .Q7H31M [facility] Rx#: [id number] Ampicillin-Sulbactam 3 gm 200 100 In Sodium Chloride 0.9% 100 ml @ 100 mls/hr IVPB Q6HR [facility] Rx#:[id number] D5-0.45% NaCl with KCl 600 600 50 20Meq/l 1,000 ml @ 50 mls /hr IV .Q20H [facility] Rx#: [id number] Intake, IV Titration 211.784 172.65 Amount Amiodarone 450 mg In 211.784 172.65 Dextrose 5% in Water 250 ml @ 1 MG/MIN 34.53 mls/ hr IV .Q7H31M [facility] Rx#: [id number] Oral 30 Output: Drainage 60 Right Lower Lateral 60 Abdomen Urine 1380 1485 115 Other: Voiding Method Indwelling Catheter Indwelling Catheter # Bowel Movements 1 1 ABP, PAP, CO, CI - Last Documented Arterial Blood Pressure 154/73 - Exam General appearance: The patient is awake in no acute distress says his name multiple times do not following direction or holding conversation. HET: Head is normocephalic and atraumatic. Pupils are equal and reactive. Oropharynx is clear without lesions. Neck: Supple without lymphadenopathy. Trachea midline. Heart: S1 S2. Regular rate and rhythm. Lungs: No crackles or wheezes are heard. Abdomen: Soft, nontender, nondistended with bowel sounds. XAVI [employer] colored drainage. Dressings clean. No peritoneal signs. No palpable organomegaly or masses. Márquez clear gina urine. Extremities: Right-sided weakness. - Labs CBC & Chem 7: 08/09/17 05:25 08/09/17 05:25 Labs: Abnormal Lab Results - Last 24 Hours (Table) 08/08/17 08/09/17 08/09/17 Range/Units 12:39 00:11 05:25 RBC 3.80 L (4.30-5.90) m/uL Hgb 12.4 L (13.0-17.5) gm/dL Hct 37.4 L (39.0-53.0) % Glucose (74-99) mg/dL POC Glucose (mg/dL) 150 H 133 H (75-99) mg/dL 08/09/17 08/09/17 Range/Units 05:25 05:28 RBC (4.30-5.90) m/uL Hgb (13.0-17.5) gm/dL Hct (39.0-53.0) % Glucose 125 H (74-99) mg/dL POC Glucose (mg/dL) 125 H (75-99) mg/dL Microbiology - Last 24 Hours (Table) 08/02/17 11:57 Blood Culture - Final Blood No Growth after 144 hours Assessment and Plan (1) Bile leak, postoperative Narrative/Plan: Without jaundice liver enzymes unremarkable XAVI output diminishing Current Visit: Yes Status: Acute Code(s): K91.89 - OTH POSTPROCEDURAL COMPLICATIONS AND DISORDERS OF DGSTV SYS; K83.8 - OTHER SPECIFIED DISEASES OF BILIARY TRACT SNOMED Code(s): 444005956 (2) Sepsis Current Visit: Yes Status: Acute Code(s): A41.9 - SEPSIS, UNSPECIFIED ORGANISM SNOMED Code(s): 90838993 (3) Bacteremia Current Visit: Yes Status: Acute Code(s): R78.81 - BACTEREMIA SNOMED Code( s): 5509298 (4) S/P cholecystectomy Current Visit: Yes Status: Acute Code(s): Z90.49 - ACQUIRED ABSENCE OF OTHER SPECIFIED PARTS OF DIGESTIVE TRACT SNOMED Code(s): 496465814 Plan: 1. ERCP not planned at this time XAVI output is improving. Continue to monitor ERCP contingent on clinical course and medical stabilization. Assessment and plan a care discussed with Dr. Barrett
--- NOTE | 2017-08-09 11:36 | P.PN ---
Subjective Progress Note Date: 08/09/17 Principal diagnosis: Status post cholecystectomy for empyema of the gallbladder, postoperative bile leak The patient is seen on rounds. He is having some intermittent runs of tachycardia which is being treated by cardiology. He's taken some full liquids. Denies any nausea and vomiting. Not moving his right upper extremity well. Concern is high for a CVA. He is not felt to be stable for a AK at this point. Objective - Vital Signs Vital signs: Vital Signs Temp 97.6 F 08/09/17 05:00 Pulse 83 08/09/17 11:28 Resp 27 H 08/09/17 07:00 BP 149/83 08/09/17 07:00 Pulse Ox 97 08/09/17 07:00 Intake & Output 08/08/17 08/09/17 08/09/17 18:59 06:59 18:59 Intake Total 0034.756 4959.35 76.7 Output Total 1380 1545 115 Balance -258.216 -348.65 -38.3 Weight 111.9 kg 106.5 kg 106.5 kg Intake: IV 910 993.7 76.7 0.9 at KVO 110 110 10 Amiodarone 450 mg In 183.7 16.7 Dextrose 5% in Water 250 ml @ 1 MG/MIN 34.53 mls/ hr IV .Q7H31M [facility] Rx#: [id number] Ampicillin-Sulbactam 3 gm 200 100 In Sodium Chloride 0.9% 100 ml @ 100 mls/hr IVPB Q6HR [facility] Rx#:[id number] D5-0.45% NaCl with KCl 600 600 50 20Meq/l 1,000 ml @ 50 mls /hr IV .Q20H [facility] Rx#: [id number] Intake, IV Titration 211.784 172.65 Amount Amiodarone 450 mg In 211.784 172.65 Dextrose 5% in Water 250 ml @ 1 MG/MIN 34.53 mls/ hr IV .Q7H31M [facility] Rx#: [id number] Oral 30 Output: Drainage 60 Right Lower Lateral 60 Abdomen Urine 1380 1485 115 Other: Voiding Method Indwelling Catheter Indwelling Catheter # Bowel Movements 1 1 ABP, PAP, CO, CI - Last Documented Arterial Blood Pressure 154/73 - Constitutional General appearance: Present: cooperative, no acute distress - Respiratory Respiratory: bilateral: CTA - Cardiovascular Rhythm: regular (Tachycardia is improved) - Gastrointestinal General gastrointestinal: Present: normal bowel sounds, soft Localized gastrointestinal: surgical scar: diffuse (Dressing is intact clean and dry, XAVI is bilious, the output is decreasing) - Labs CBC & Chem 7: 08/09/17 05:25 08/09/17 05:25 Labs: Abnormal Lab Results - Last 24 Hours (Table) 08/08/17 08/09/17 08/09/17 Range/Units 12:39 00:11 05:25 RBC 3.80 L (4.30-5.90) m/uL Hgb 12.4 L (13.0-17.5) gm/dL Hct 37.4 L (39.0-53.0) % Glucose (74-99) mg/dL POC Glucose (mg/dL) 150 H 133 H (75-99) mg/dL 08/09/17 08/09/17 Range/Units 05:25 05:28 RBC (4.30-5.90) m/uL Hgb (13.0-17.5) gm/dL Hct (39.0-53.0) % Glucose 125 H (74-99) mg/dL POC Glucose (mg/dL) 125 H (75-99) mg/dL Microbiology - Last 24 Hours (Table) 08/02/17 11:57 Blood Culture - Final Blood No Growth after 144 hours Assessment and Plan (1) Cholecystitis Current Visit: Yes Status: Acute Code(s): K81.9 - CHOLECYSTITIS, UNSPECIFIED SNOMED Code(s): 09841560 (2) Bile leak, postoperative Current Visit: Yes Status: Acute Code(s): K91.89 - OTH POSTPROCEDURAL COMPLICATIONS AND DISORDERS OF DGSTV SYS; K83.8 - OTHER SPECIFIED DISEASES OF BILIARY TRACT SNOMED Code(s): 216186034 (3) Empyema of gallbladder Current Visit: Yes Status: Acute Code(s): K81.0 - ACUTE CHOLECYSTITIS SNOMED Code(s): 96757353 (4) Systolic heart failure Current Visit: Yes Status: Acute Code(s): I50.20 - UNSPECIFIED SYSTOLIC ( CONGESTIVE) HEART FAILURE SNOMED Code(s): 011974923 Plan: The patient is slowly improving. He would be surgically stable for transfer to the medical floor. Monitor XAVI. Will likely need a ERCP. Monitor her oral intake.
--- NOTE | 2017-08-09 12:14 | P.PN ---
Subjective this is a pleasant 81 yo M admitted with acute sepsis and acute resp failure , was intubated and s/p extubation today 08/07/17. is following the pt closely , ID has been consulted, the pt also was suspicious for weakness of his right upper ext and neurology has been consulted for possible stroke 08/07/17 today pt was extubated when I saw the pt he could open his eyes spontaneously , and follow command , he was not moving his right upper ext and it was in splint , pt could not provide history as he was just extubated , whoever he was noticed to breath comfortabley and not in resp distress 08/08/2017 Patient is a breathing comfortably, he opens his eyes spontaneously he doesn't follow commands as clearly sometimes suite after being the orders and he doesn' t follow all the comments, as per staff his mental status fluctuates, little bit movement in his right upper extremity as per staff, there is less drainage from his due to from 400+ yesterday to 160 mL today Review of Systems unable to perform as pt could not provide history Home Medications Medication Instructions Recorded Confirmed Type Allopurinol [Zyloprim] 300 mg PO HS 08/30/16 08/01/17 History Atenolol 25 mg PO BID 08/30/16 08/01/17 History Budesonide/Formoterol Fumarate 2 puff INHALATION RT-BID 08/30/16 08/01/17 History [Symbicort 160-4.5 Mcg Inhaler] Dipyridamole-Aspirin 200-25 mg 1 tab PO BID 08/30/16 08/01/17 History [Aggrenox 25MG -200MG] Tamsulosin HCl [Flomax] 0.4 mg PO HS 08/30/16 08/01/17 History amLODIPine [Norvasc] 5 mg PO HS 08/30/16 08/01/17 History current Medications - Tylenol -albuterol -unasyn -allopurinol -norvasc -asa -coreg -lovenox -Pepcid --hydralazine -novolog insulin -Lisinopril -ativan -reglan -morphine -spironolactone Objective - Vital Signs Vital signs: Vital Signs Temp 97.6 F 08/09/17 05:00 Pulse 82 08/09/17 11:40 Resp 27 H 08/09/17 07:00 BP 149/83 08/09/17 07:00 Pulse Ox 97 08/09/17 07:00 Intake & Output 08/08/17 08/09/17 08/09/17 18:59 06:59 18:59 Intake Total 7338.238 6188.35 76.7 Output Total 1380 1545 115 Balance -258.216 -348.65 -38.3 Weight 111.9 kg 106.5 kg 106.5 kg Intake: IV 910 993.7 76.7 0.9 at KVO 110 110 10 Amiodarone 450 mg In 183.7 16.7 Dextrose 5% in Water 250 ml @ 1 MG/MIN 34.53 mls/ hr IV .Q7H31M [facility]ENNA Rx#: [id number] Ampicillin-Sulbactam 3 gm 200 100 In Sodium Chloride 0.9% 100 ml @ 100 mls/hr IVPB Q6HR [facility] Rx#:[id number] D5-0.45% NaCl with KCl 600 600 50 20Meq/l 1,000 ml @ 50 mls /hr IV .Q20H [facility]ENNA Rx#: [id number] Intake, IV Titration 211.784 172.65 Amount Amiodarone 450 mg In 211.784 172.65 Dextrose 5% in Water 250 ml @ 1 MG/MIN 34.53 mls/ hr IV .Q7H31M BRENNA Rx#: [id number] Oral 30 Output: Drainage 60 Right Lower Lateral 60 Abdomen Urine 1380 1485 115 Other: Voiding Method Indwelling Catheter Indwelling Catheter # Bowel Movements 1 1 ABP, PAP, CO, CI - Last Documented Arterial Blood Pressure 154/73 - Exam General : pt is awake and able to follow simple commands HEENT: Head is atraumatic, normocephalic. Pupils equal, round. Neck is supple. There is no elevated jugular venous pressure. HEART EXAMINATION: Heart S1-S2, no murmur is heard CHEST EXAMINATION: Lungs reveal no expiratory wheezes throughout otherwise essentially clear. ABDOMEN: Soft, nontender. Bowel sounds are heard. No organomegaly noted. EXTREMITIES: 2+ peripheral pulses with no evidence of peripheral edema and no calf tenderness noted. NEUROLOGIC patient is awake, alert and oriented -3. it was noted pt is not moving his right upper ext and it is in splint - Labs CBC & Chem 7: 08/09/17 05:25 08/09/17 05:25 Labs: Abnormal Lab Results - Last 24 Hours (Table) 08/08/17 08/09/17 08/09/17 Range/Units 12:39 00:11 05:25 RBC 3.80 L (4.30-5.90) m/uL Hgb 12.4 L (13.0-17.5) gm/dL Hct 37.4 L (39.0-53.0) % Glucose (74-99) mg/dL POC Glucose (mg/dL) 150 H 133 H (75-99) mg/dL 08/09/17 08/09/17 Range/Units 05:25 05:28 RBC (4.30-5.90) m/uL Hgb (13.0-17.5) gm/dL Hct (39.0-53.0) % Glucose 125 H (74-99) mg/dL POC Glucose (mg/dL) 125 H (75-99) mg/dL Microbiology - Last 24 Hours (Table) 08/02/17 11:57 Blood Culture - Final Blood No Growth after 144 hours Assessment and Plan Assessment: -acute delirium, patient has fluctuating in his mental status, Neurologist f/u pt , with work up is still going -acute cholycystis with E.coli s/p laparocopic cholecystectomy -acute resp failure , was on vent , s/p extubation on 08/07/17 -right middle lobe pna -right sided weakness, possible stroke and neurology team is seeing the pt -anemia -UTI -CHF with EF 35-40% -HTN -HLP -h/o CAD, s/p stent Plan: continue with current management , continue with symptomatic treatment , continue with broad spectrum antibiotic , follow closely with surgery , infectious disease, neurology , Neurovascular work up is indicated. prognosis remains guarded giving his multiple complex medical problems and severity. further recommendations to follow
[2017-08-09 12:28] LABS: Glucose,Whole Blood 135 mg/dL (75-99)
[2017-08-09] MEDS: AMIODARONE 450 MG in DEXTROSE 5% IN WATER 250 ML IV SCH ×2 (13:12)
--- NOTE | 2017-08-09 14:25 | CDI ---
Last Revision, February 2017 Documentation Clarification Form Date: 08/09/17 1420 From: Shelby Remy RN, CCDS Admit Date: 08/01/2017 11:15:00 PM Patient Name: Trell Martin Visit Number: [id number] ATTENTION: The Clinical Documentation Specialists (CDI) and [facility] Coding Staff appreciate your assistance in clarifying documentation. Please respond to the clarification below the line at the bottom and electronically sign. The CDI & [facility] Coding staff will review the response and follow-up if needed. Please note: Queries are made part of the Legal Health Record. If you have any questions, please contact the author of this message via ITS. Dr. Bucio E Sheet RML Pneumonia was documented in your notes and requires further specificity. History/Risk Factors: Acute on chronic hypoxic respiratory failure, Sepsis, HTN, ME, CAD Clinical Indicators: WBC: 9.9/13.4/8.8/9/6.3/5.2/7.1/8.2 Left shift: 8.7/8.6/6.2/4.6/3.6/6 CXR: "volume overload, pulmonary venous hypertension and interstitial edema. Possible left lower lobe atelectasis versus pneumonia or edema and associated effusion." 08/09 Lung/Breathing assessment: "Lungs reveal no expiratory wheezes throughout otherwise essentially clear." Treatment: Antibiotics: Unasyn 3 gm IVPB Q 6 hrs, Zithromax 500 mg IVPB x1 dose, Zosyn 3.375 gm IVPB Q 8hrs x 48 hrs O2: 2L to Mechanical vent to Room air Breathing Tx: Duoneb QID In order to capture the severity of condition, please clarify if the condition signifies and you are treating for: Aspiration Pneumonia, identify if: Due to solids or liquids Bacterial Pneumonia, specify causal organism (if known) Gram Negative Pneumonia Due to Strep Due to Staph Due to E. coli Other bacteria (please specify) Viral Pneumonia, specify casual organism (if known) Ventilator Associated Pneumonia Healthcare Acquired Pneumonia/Pneumonia, unspecified Other, please specify Unable to determine Please continue to document in your progress notes and discharge summary in order to capture severity of illness and risk of mortality. Include clinical findings that support your diagnosis. Unable to determine MTDD
--- NOTE | 2017-08-09 14:48 | CDI ---
Last Revision, February 2017 Documentation Clarification Form Date: 08/09/17 0511 From: Shelby Remy RN, CCDS Admit Date: 08/01/2017 11:15:00 PM Patient Name: Trell Martin Visit Number: [id number] ATTENTION: The Clinical Documentation Specialists (CDI) and [facility] Coding Staff appreciate your assistance in clarifying documentation. Please respond to the clarification below the line at the bottom and electronically sign. The CDI & [facility] Coding staff will review the response and follow-up if needed. Please note: Queries are made part of the Legal Health Record. If you have any questions, please contact the author of this message via ITS. Dr. Fortunato Griffin Delirium and Encephalopathy are both documented in the medical record progress notes and requires further clarification of conflicting documentation and further specificity. Patient history/risk factors: UTI, Pneumonia, gram negative Sepsis, acute cholecystitis, acute respiratory failure, CHF, Clinical Indicators: 08/09 Attending: "acute delirium, patient has fluctuating in his mental status, Neurologist f/ u pt, with work up is still going. 08/07 Neurology Progress note: EEG did show mild encephalopathy Labs: WBC 13.4, Hgb 12.7/15.7/12.8/11.8/11.6, Neutrophils 8.7/8.6, Lactic acid 2.2 08/08 CXR: "volume overload, pulmonary venous hypertension and interstitial edema. Possible left lower lobe atelectasis versus pneumonia or edema and associated effusion. " CT Brain: "Moderate ventriculomegaly is unchanged. In part this may relate to central cerebral atrophy. Correlate for a possible component of NPH Moderate patchy white matter hypodensities likely relating to chronic small vessel ischemic disease. No acute intracranial abnormality seen." Treatment: Iv Abx Vent TX of underlying CHF Open Choley In your professional opinion, please clarify the etiology of the altered mental status, if known. Encephalopathy (specify Type- Metabolic, Septic, Anoxic and Underlying Medical Illness) Delirium (specify cause): Dementia (if know, specify Type and if with/without Behavioral Disturbance) Other condition (please specify) Unable to determine Please continue to document in your progress notes and discharge summary in order to capture severity of illness and risk of mortality. Include clinical findings that support your diagnosis. Unable to determine MTDD
[2017-08-09 17:11] LABS: Glucose,Whole Blood 139 mg/dL (75-99)
[2017-08-09] MEDS: AMIODARONE 200 MG TAB PO SCH ×2 (17:56→22:30)
--- NOTE | 2017-08-09 18:01 | P.PN ---
Subjective Progress Note Date: 08/09/17 Principal diagnosis: Patient is an 81-year-old male who is being followed by the neurology service for right-sided weakness. Patient has been having cough and fever and came to [facility] on 08/01/2017 for further evaluation. Patient was found to have pneumonia as well as acute cholecystitis and patient underwent cholecystectomy on 08/03/2017. The following day after surgery, patient was noted to be moving all 4 extremities. Patient does have chronic lower extremity weakness. Nursing staff noticed patient was not moving his right side compared to his left side 2 days following surgery. Stat computed tomography scan of the brain was done which showed no acute findings. CT did show generalized atrophy and small vessel ischemic changes. Patient is currently in the ICU setting. At the time of my evaluation, patient's resting comfortably in bed and appears to be in no acute distress. Patient continues to have right-sided weakness. 08/08/2017 Patient is a pleasant 81-year-old male who is being followed by the neurology service for right-sided weakness. Patient is seen today in the ICU setting. Patient is extubated. CT of the brain shows moderate ventriculomegaly. CT shows patchy white matter hypodensities likely related to chronic small vessel ischemic changes. is awake and interactive. Patient is moving right upper and lower extremity better as compared to yesterday. Patient had a swallow evaluation which she passed and is taking small amounts of applesauce. Chest x-ray showed small bilateral pleural effusion. Surgery is following. EEG did show mild encephalopathy. At the time of my evaluation, patient's resting comfortably in bed and appears to be in no acute distress. 08/09/2017 Patient is a pleasant 81-year-old male is being followed by the neurology service for right-sided weakness. Patient continues to remain in the ICU setting however, he will be transferred out when bed is available. Patient is unable to have an MRI due to recent cholecystectomy. Patient's right-sided weakness continues to improve. At the time of my evaluation, patient's resting comfortably in bed and appears to be in no acute distress. Objective - Vital Signs Vital signs: Vital Signs Temp 98.1 F 08/09/17 12:00 Pulse 84 08/09/17 16:30 Resp 21 08/09/17 12:00 BP 147/84 08/09/17 12:00 Pulse Ox 99 08/09/17 16:18 Intake & Output 08/08/17 08/09/17 08/09/17 18:59 06:59 18:59 Intake Total 5522.110 4102.35 460.2 Output Total 1380 1545 515 Balance -258.216 -348.65 -54.8 Weight 111.9 kg 106.5 kg 106.5 kg Intake: IV 910 993.7 460.2 0.9 at KVO 110 110 60 Amiodarone 450 mg In 183.7 100.2 Dextrose 5% in Water 250 ml @ 1 MG/MIN 34.53 mls/ hr IV .Q7H31M [facility]NA Rx#: [id number] Ampicillin-Sulbactam 3 gm 200 100 In Sodium Chloride 0.9% 100 ml @ 100 mls/hr IVPB Q6HR [facility]NA Rx#:[id number] D5-0.45% NaCl with KCl 600 600 300 20Meq/l 1,000 ml @ 50 mls /hr IV .Q20H [facility]NA Rx#: [id number] Intake, IV Titration 211.784 172.65 Amount Amiodarone 450 mg In 211.784 172.65 Dextrose 5% in Water 250 ml @ 1 MG/MIN 34.53 mls/ hr IV .Q7H31M [facility]ENNA Rx#: [id number] Oral 30 Output: Drainage 60 Right Lower Lateral 60 Abdomen Urine 1380 1485 515 Other: Voiding Method Indwelling Catheter Indwelling Catheter Indwelling Catheter # Bowel Movements 1 1 ABP, PAP, CO, CI - Last Documented Arterial Blood Pressure 158/76 - Exam PHYSICAL EXAM: GENERAL APPEARANCE: Patient is a well-developed, male who appears to be in no acute distress. HEENT: Normocephalic, atraumatic, no facial asymmetry is seen. Neck is supple with no masses felt. CARDIOVASCULAR: Regular rate and rhythm. ABDOMEN: Nontender, nondistended. EXTREMITIES: Show no edema or clubbing. NEUROLOGICAL EXAM: Patient is awake, and does follow commands with all 4 extremities. Strength is 4/5 in the left upper extremity and 3/5 in the right upper extremity, 3/5 in the right lower extremity and 4+/5 in the left lower extremity. Sensory exam was not performed with meaningful results as patient is extremely hard of hearing. No tremors or seizure-like activity is noted. No obvious facial asymmetry is seen. - Labs CBC & Chem 7: 08/09/17 05:25 08/09/17 05:25 Labs: Abnormal Lab Results - Last 24 Hours (Table) 08/09/17 08/09/17 08/09/17 Range/Units 00:11 05:25 05:25 RBC 3.80 L (4.30-5.90) m/uL Hgb 12.4 L (13.0-17.5) gm/dL Hct 37.4 L (39.0-53.0) % Glucose 125 H (74-99) mg/dL POC Glucose (mg/dL) 133 H (75-99) mg/dL 08/09/17 08/09/17 08/09/17 Range/Units 05:28 12:25 17:05 RBC (4.30-5.90) m/uL Hgb (13.0-17.5) gm/dL Hct (39.0-53.0) % Glucose (74-99) mg/dL POC Glucose (mg/dL) 125 H 135 H 139 H (75-99) mg/dL Microbiology - Last 24 Hours (Table) 08/02/17 11:57 Blood Culture - Final Blood No Growth after 144 hours Assessment and Plan Plan: Impression: 1. Acute ischemic stroke, likely left middle cerebral artery distribution 2. Right sided weakness 3. Generalized weakness 4. Status post cholecystectomy 5. Pneumonia Recommendation: Patient does appear to have suffered acute ischemic stroke in the left MCA distribution. Continue antiplatelet therapy. Patient continues to have right-sided weakness which is improving. Initial computed tomography scan of the brain showed no acute findings. 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 EEG showed mild encephalopathy. Carotid Doppler showed no significant stenosis. Lipid panel showed elevated triglycerides of 164 and low HDL of 25. Consider statin therapy. Homocystine level was elevated at 16.04. Continue Foltx daily. MRI of the brain can be performed when okay with Gen. surgery. I understand approximately 8 weeks he will be able to have an MRI. I recommend adjusting blood pressure medication as his blood pressure can become quite elevated. I recommend PT/OT to evaluate and treat. I will continue to follow with you on an as-needed basis. Feel free to call with any questions or concerns. I performed an examination of the patient and discussed the management with the COLD STORAGE WORKER. I have reviewed the COLD STORAGE WORKER notes and agree with the findings and plan of care.
--- NOTE | 2017-08-09 18:05 | P.PN ---
Subjective Principal diagnosis: Acute cholecystitis, sepsis, nonsustained V. tach This patient is extubated yesterday. He seemed to be alert but slow in responding to questions. He does identify is and son accurately. He doesn 't seem to be in acute distress. He is maintaining sinus rhythm but having episodes of nonsustained ventricular tachycardia. Patient is status post cholecystectomy. Patient has been having some biliary drainage. So, it is felt that patient may need ERCP. Patient is on amiodarone, but still having the nonsustained V. tach. I'm going to add Mexitil 150 mg by mouth twice a day. Patient is being transferred to telemetry unit. Patient still has evidence of right-sided weakness. Overall prognosis is still guarded Objective - Vital Signs Vital signs: Vital Signs Temp 98.1 F 08/09/17 12:00 Pulse 84 08/09/17 16:30 Resp 21 08/09/17 12:00 BP 147/84 08/09/17 12:00 Pulse Ox 99 08/09/17 16:18 Intake & Output 08/08/17 08/09/17 08/09/17 18:59 06:59 18:59 Intake Total 5124.888 0985.35 460.2 Output Total 1380 1545 515 Balance -258.216 -348.65 -54.8 Weight 111.9 kg 106.5 kg 106.5 kg Intake: IV 910 993.7 460.2 0.9 at KVO 110 110 60 Amiodarone 450 mg In 183.7 100.2 Dextrose 5% in Water 250 ml @ 1 MG/MIN 34.53 mls/ hr IV .Q7H31M [facility] Rx#: [id number] Ampicillin-Sulbactam 3 gm 200 100 In Sodium Chloride 0.9% 100 ml @ 100 mls/hr IVPB Q6HR [facility] Rx#:[id number] D5-0.45% NaCl with KCl 600 600 300 20Meq/l 1,000 ml @ 50 mls /hr IV .Q20H [facility]NA Rx#: [id number] Intake, IV Titration 211.784 172.65 Amount Amiodarone 450 mg In 211.784 172.65 Dextrose 5% in Water 250 ml @ 1 MG/MIN 34.53 mls/ hr IV .Q7H31M BRENNA Rx#: [id number] Oral 30 Output: Drainage 60 Right Lower Lateral 60 Abdomen Urine 1380 1485 515 Other: Voiding Method Indwelling Catheter Indwelling Catheter Indwelling Catheter # Bowel Movements 1 1 ABP, PAP, CO, CI - Last Documented Arterial Blood Pressure 158/76 - Exam GENERAL EXAM: Patient is alert but slow in responding. HEENT: Normal NECK: No masses, no nuchal rigidity. CHEST: No chest wall deformity. LUNGS: Diminished breath sounds at the bases HEART: S1 and S2 normal with no audible mumurs or gallops. ABDOMEN: Postsurgical SKIN: No rashes CENTRAL NERVOUS SYSTEM: Seems to be patient is able to move the right arm EXTREMITIES: No cyanosis, clubbing or edema. - Labs CBC & Chem 7: 08/09/17 05:25 08/09/17 05:25 Labs: Abnormal Lab Results - Last 24 Hours (Table) 08/09/17 08/09/17 08/09/17 Range/Units 00:11 05:25 05:25 RBC 3.80 L (4.30-5.90) m/uL Hgb 12.4 L (13.0-17.5) gm/dL Hct 37.4 L (39.0-53.0) % Glucose 125 H (74-99) mg/dL POC Glucose (mg/dL) 133 H (75-99) mg/dL 08/09/17 08/09/17 08/09/17 Range/Units 05:28 12:25 17:05 RBC (4.30-5.90) m/uL Hgb (13.0-17.5) gm/dL Hct (39.0-53.0) % Glucose (74-99) mg/dL POC Glucose (mg/dL) 125 H 135 H 139 H (75-99) mg/dL Microbiology - Last 24 Hours (Table) 08/02/17 11:57 Blood Culture - Final Blood No Growth after 144 hours Assessment and Plan (1) Nonsustained ventricular tachycardia Current Visit: Yes Status: Acute Code(s): I47.2 - VENTRICULAR TACHYCARDIA SNOMED Code(s): 814784201 (2) Cholecystitis Current Visit: Yes Status: Acute Code(s): K81.9 - CHOLECYSTITIS, UNSPECIFIED SNOMED Code(s): 50194770 (3) Coronary artery disease Current Visit: Yes Status: Acute Code(s): I25.10 - ATHSCL HEART DISEASE OF [place] CORONARY ARTERY W/O ANG PCTRS SNOMED Code(s): 13869936 (4) Systolic heart failure Current Visit: Yes Status: Acute Code(s): I50.20 - UNSPECIFIED SYSTOLIC ( CONGESTIVE) HEART FAILURE SNOMED Code(s): 189392725 (5) Cardiomyopathy Current Visit: Yes Status: Acute Code(s): I42.9 - CARDIOMYOPATHY, UNSPECIFIED SNOMED Code(s): 59354458 (6) CVA (cerebral vascular accident) Current Visit: Yes Status: Acute Code(s): I63.9 - CEREBRAL INFARCTION, UNSPECIFIED SNOMED Code(s): 962881783 Plan: We'll continue amiodarone orally. I will also add Mexitil. Patient will be taught to telemetry unit. There is a possibility that patient may need ERCP because of biliary drainage.
--- NOTE | 2017-08-09 20:17 | PN ---
PROGRESS NOTE DATE OF SERVICE: 08/09/2017. REASON FOR FOLLOWUP VISIT: E. coli bacteremia secondary to acute cholecystitis. INTERVAL HISTORY: The patient is afebrile. He remains to be slightly weak and lethargic and kind of sleepy. Did not provide any history, though. No nausea, vomiting or diarrhea reported per nursing staff. EXAMINATION: Blood pressure is 157/92 with a pulse of 79, temperature 97.8. He is 93% on room air. General description is an elderly male lying in bed in no distress. RESPIRATORY SYSTEM: Unlabored breathing. Clear to auscultation anteriorly. HEART: S1, S2. Regular rate and rhythm. ABDOMEN: Soft. No tenderness. No guarding or rigidity. LABS: Hemoglobin is 12.4, white count 8.2 with a BUN of 16, creatinine 0.84. DIAGNOSTIC IMPRESSION AND PLAN: Patient with Escherichia coli bacteremia secondary to the acute cholecystitis, status post open cholecystectomy. The patient's mentation remains to be on the low side. Will be managed by the admitting team. As for this infection, Escherichia coli bacteremia, currently covered with Unasyn, hopefully transition to oral antibiotic when stable on discharge. Continue supportive care. MMODL / IJN: [id number] /
[2017-08-09] MEDS: ALLOPURINOL 300 MG TAB PO SCH (20:46)
[2017-08-09] MEDS: amLODIPine 5 MG TAB PO SCH (20:46)
[2017-08-09] MEDS ORDERED: MEXILETINE 150 MG CAP PO SCH (21:00)
[2017-08-09] MEDS: MAGNESIUM SULFATE-D5W PMX 1 GM in DEXTROSE/WATER 1 100ML.BAG IVPB SCH ×2 (22:54→23:41)
[2017-08-09 23:59] LABS: Glucose,Whole Blood 170 mg/dL (75-99)
[2017-08-10] MEDS: AMPICILLIN-SULBACTAM 3 GM in SODIUM CHLORIDE 0.9% 100 ML IVPB SCH ×4 (00:42→18:54)
[2017-08-10] MEDS: METOCLOPRAMIDE 5 MG/ML 2 ML VIAL IVP SCH ×4 (00:42→18:54)
[2017-08-10] MEDS: INSULIN ASPART 100 UNIT/ML 1 ML 10 ML VIAL SQ SCH ×4 (00:43→19:01)
[2017-08-10 04:35] LABS: Basophils % (A) 0 %; Eosinophils # (A) 0.2 k/uL (0-0.7); Eosinophils % (A) 2 %; HCT 40.5 % (39.0-53.0); HGB 12.9 gm/dL (13.0-17.5); Lymphocytes # (A) 1.4 k/uL (1.0-4.8); Lymphocytes % (A) 17 %; MCHC 31.9 g/dL (31.0-37.0); MCV 100.1 fL (80.0-100.0); Monocytes # (A) 0.5 k/uL (0-1.0); Monocytes % (A) 6 %; Neutrophils # (A) 6.2 k/uL (1.3-7.7); Neutrophils % (A) 73 %; Platelet Count 246 k/uL (150-450); RBC 4.04 m/uL (4.30-5.90); RDW 13.9 % (11.5-15.5); WBC 8.4 k/uL (3.8-10.6)
[2017-08-10 04:46] LABS: ALT 80 U/L (21-72); AST 63 U/L (17-59); Alkaline Phosphatase 142 U/L (38-126); Anion Gap 11 mmol/L; Blood Urea Nitrogen 16 mg/dL (9-20); Calcium 9.1 mg/dL (8.4-10.2); Carbon Dioxide 23 mmol/L (22-30); Chloride 104 mmol/L (98-107); Glucose 119 mg/dL (74-99); Magnesium 2.4 mg/dL (1.6-2.3); Phosphorus 3.6 mg/dL (2.5-4.5); Sodium 138 mmol/L (137-145); Total Bilirubin 0.6 mg/dL (0.2-1.3); Total Protein 5.5 g/dL (6.3-8.2)
[2017-08-10 06:52] LABS: Glucose,Whole Blood 124 mg/dL (75-99)
[2017-08-10] MEDS: SYMBICORT 160-4.5 MCG INHALER INHALATION SCH ×2 (07:15→19:15)
[2017-08-10] MEDS: IPRATROPIUM-ALBUTEROL 3 ML NEB INHALATION SCH ×4 (07:15→19:15)
[2017-08-10] MEDS: D5-0.45% NACL WITH KCL 20MEQ/L 1,000 ML IV SCH (08:24)
[2017-08-10] MEDS: ASPIRIN 81 MG PO SCH (08:25)
[2017-08-10] MEDS: FAMOTIDINE 20 MG/2 ML VIAL IV SCH (08:25)
[2017-08-10] MEDS: ENOXAPARIN 40 MG/0.4 ML SYRINGE SQ SCH (08:25)
[2017-08-10] MEDS: METOPROLOL TARTRATE 50 MG TAB PO SCH ×2 (08:26→21:07)
[2017-08-10] MEDS: MEXILETINE 150 MG CAP PO SCH ×2 (08:26→16:18)
--- NOTE | 2017-08-10 08:45 | P.PN ---
Subjective Progress Note Date: 08/10/17 Principal diagnosis: bile leak Reevaluated in regards to biliary leak. XAVI output is now serosanguineous. XAVI output improved about 120 mL 24 hours. Neurology following for acute ischemic stroke with right-sided weakness. Tolerating small amounts of a modified diet. Total bilirubin 0.6. AST 63. ALT 80. Alkaline phosphatase 142. Objective - Vital Signs Vital signs: Vital Signs Temp 98.3 F 08/10/17 04:00 Pulse 92 08/10/17 07:30 Resp 24 08/10/17 04:00 BP 142/89 08/10/17 04:00 Pulse Ox 98 08/10/17 07:18 Intake & Output 08/09/17 08/10/17 08/10/17 18:59 06:59 18:59 Intake Total 750.2 980 Output Total 845 1490 Balance -94.8 -510 Weight 106.5 kg 107 kg Intake: IV 750.2 980 0.9 at KVO 100 80 Amiodarone 450 mg In 100.2 Dextrose 5% in Water 250 ml @ 1 MG/MIN 34.53 mls/ hr IV .Q7H31M BRENNA Rx#: [id number] Ampicillin-Sulbactam 3 gm 100 100 In Sodium Chloride 0.9% 100 ml @ 100 mls/hr IVPB Q6HR BRENNA Rx#:[id number] D5-0.45% NaCl with KCl 450 600 20Meq/l 1,000 ml @ 50 mls /hr IV .Q20H BRENNA Rx#: [id number] magnesium sulfate 200 Output: Drainage 30 90 Right Lower Lateral 30 90 Abdomen Urine 815 1400 Other: Voiding Method Indwelling Catheter Indwelling Catheter ABP, PAP, CO, CI - Last Documented Arterial Blood Pressure 158/76 - Exam General appearance: The patient is awake in no acute distress. HET: Head is normocephalic and atraumatic. Pupils are equal and reactive. Oropharynx is clear without lesions. Neck: Supple without lymphadenopathy. Trachea midline. Heart: S1 S2. Regular rate and rhythm. Lungs: No crackles or wheezes are heard. Abdomen: Soft, nontender, nondistended with bowel sounds. XAVI serosanguineous drainage. Dressings clean. No peritoneal signs. No palpable organomegaly or masses. Márquez clear gina urine. Extremities: Right-sided weakness. - Labs CBC & Chem 7: 08/10/17 04:05 08/10/17 04:05 Labs: Abnormal Lab Results - Last 24 Hours (Table) 08/09/17 08/09/17 08/09/17 Range/Units 12:25 17:05 23:57 RBC (4.30-5.90) m/uL Hgb (13.0-17.5) gm/dL MCV (80.0-100.0) fL Glucose (74-99) mg/dL POC Glucose (mg/dL) 135 H 139 H 170 H (75-99) mg/dL Magnesium (1.6-2.3) mg/dL AST (17-59) U/L ALT (21-72) U/L Alkaline Phosphatase (38-126) U/L Total Protein (6.3-8.2) g/dL Albumin (3.5-5.0) g/dL 08/10/17 08/10/17 08/10/17 Range/Units 04:05 04:05 06:51 RBC 4.04 L (4.30-5.90) m/uL Hgb 12.9 L (13.0-17.5) gm/dL MCV 100.1 H (80.0-100.0) fL Glucose 119 H (74-99) mg/dL POC Glucose (mg/dL) 124 H (75-99) mg/dL Magnesium 2.4 H (1.6-2.3) mg/dL AST 63 H (17-59) U/L ALT 80 H (21-72) U/L Alkaline Phosphatase 142 H (38-126) U/L Total Protein 5.5 L (6.3-8.2) g/dL Albumin 3.0 L (3.5-5.0) g/dL Assessment and Plan (1) Bile leak, postoperative Narrative/Plan: 81-year-old gentleman status post open cholecystectomy with development of postoperative bile leak and ischemic stroke. Bile leak resolving XAVI now producing serosanguineous fluid with mild elevation of transaminases and normal bilirubin. Current Visit: Yes Status: Acute Code(s): K91.89 - OTH POSTPROCEDURAL COMPLICATIONS AND DISORDERS OF DGSTV SYS; K83.8 - OTHER SPECIFIED DISEASES OF BILIARY TRACT SNOMED Code(s): 450472248 (2) Sepsis Current Visit: Yes Status: Acute Code(s): A41.9 - SEPSIS, UNSPECIFIED ORGANISM SNOMED Code(s): 70614201 (3) Bacteremia Current Visit: Yes Status: Acute Code(s): R78.81 - BACTEREMIA SNOMED Code( s): 4252509 (4) S/P cholecystectomy Current Visit: Yes Status: Acute Code(s): Z90.49 - ACQUIRED ABSENCE OF OTHER SPECIFIED PARTS OF DIGESTIVE TRACT SNOMED Code(s): 617040523 Plan: 1. ERCP not planned at this time XAVI output is improving and now serosanguineous. Continue to monitor ERCP contingent on clinical course and medical stabilization. Assessment and plan a care discussed with Dr. Barrett
[2017-08-10] MEDS ORDERED: AMIODARONE 200 MG TAB PO SCH ×2 (09:00→15:12)
[2017-08-10] MEDS: LISINOPRIL 5 MG TAB OG-TUBE SCH (10:53)
[2017-08-10] MEDS: SPIRONOLACTONE 25 MG TAB PO SCH (10:53)
--- NOTE | 2017-08-10 12:26 | XR ---
EXAMINATION TYPE: XR chest 1V portable DATE OF EXAM: 08/10/2017 COMPARISON: 08/08/2017 HISTORY: Abnormal x-ray TECHNIQUE: Single frontal view of the chest is obtained. FINDINGS: Right-sided central line and postoperative changes are stable. There is bibasilar subsegme ntal consolidation. Underlying COPD suspected. No sizable pneumothorax. Atherosclerotic change aorta. IMPRESSION: 1. Persistent basilar infiltrate or atelectasis. No overt heart failure on today's exam.
[2017-08-10 12:38] LABS: Glucose,Whole Blood 146 mg/dL (75-99)
[2017-08-10] MEDS: CYANOCOBALAMIN-FA-PYRIDOXINE 1 EACH TAB PO SCH (12:44)
--- NOTE | 2017-08-10 12:58 | P.PN ---
Subjective this is a pleasant 81 yo M admitted with acute sepsis and acute resp failure , was intubated and s/p extubation today 08/07/17. is following the pt closely , ID has been consulted, the pt also was suspicious for weakness of his right upper ext and neurology has been consulted for possible stroke 08/07/17 today pt was extubated when I saw the pt he could open his eyes spontaneously , and follow command , he was not moving his right upper ext and it was in splint , pt could not provide history as he was just extubated , whoever he was noticed to breath comfortabley and not in resp distress 08/08/2017 Patient is a breathing comfortably, he opens his eyes spontaneously he doesn't follow commands as clearly sometimes suite after being the orders and he doesn' t follow all the comments, as per staff his mental status fluctuates, little bit movement in his right upper extremity as per staff, there is less drainage from his due to from 400+ yesterday to 160 mL today Review of Systems unable to perform as pt could not provide history Home Medications Medication Instructions Recorded Confirmed Type Allopurinol [Zyloprim] 300 mg PO HS 08/30/16 08/01/17 History Atenolol 25 mg PO BID 08/30/16 08/01/17 History Budesonide/Formoterol Fumarate 2 puff INHALATION RT-BID 08/30/16 08/01/17 History [Symbicort 160-4.5 Mcg Inhaler] Dipyridamole-Aspirin 200-25 mg 1 tab PO BID 08/30/16 08/01/17 History [Aggrenox 25MG -200MG] Tamsulosin HCl [Flomax] 0.4 mg PO HS 08/30/16 08/01/17 History amLODIPine [Norvasc] 5 mg PO HS 08/30/16 08/01/17 History current Medications - Tylenol -albuterol -unasyn -allopurinol -norvasc -asa -coreg -lovenox -Pepcid --hydralazine -novolog insulin -Lisinopril -ativan -reglan -morphine -spironolactone Objective - Vital Signs Vital signs: Vital Signs Temp 98.7 F 08/10/17 12:00 Pulse 84 08/10/17 12:00 Resp 16 08/10/17 12:00 BP 154/92 08/10/17 12:00 Pulse Ox 99 08/10/17 12:00 Intake & Output 08/09/17 08/10/17 08/10/17 18:59 06:59 18:59 Intake Total 750.2 980 120 Output Total 845 1490 1000 Balance -94.8 -510 -880 Weight 106.5 kg 107 kg Intake: IV 750.2 980 120 0.9 at KVO 100 80 20 Amiodarone 450 mg In 100.2 Dextrose 5% in Water 250 ml @ 1 MG/MIN 34.53 mls/ hr IV .Q7H31M [facility]ENNA Rx#: [id number] Ampicillin-Sulbactam 3 gm 100 100 In Sodium Chloride 0.9% 100 ml @ 100 mls/hr IVPB Q6HR [facility] Rx#:[id number] D5-0.45% NaCl with KCl 450 600 100 20Meq/l 1,000 ml @ 50 mls /hr IV .Q20H [facility]ENNA Rx#: [id number] magnesium sulfate 200 Output: Drainage 30 90 Right Lower Lateral 30 90 Abdomen Urine 815 1400 1000 Other: Voiding Method Indwelling Catheter Indwelling Catheter Indwelling Catheter # Bowel Movements 1 ABP, PAP, CO, CI - Last Documented Arterial Blood Pressure 158/76 - Exam General : pt is more awake and able to follow simple commands , when asking him what his name he said "my name is Trell" HEENT: Head is atraumatic, normocephalic. Pupils equal, round. Neck is supple. There is no elevated jugular venous pressure. HEART EXAMINATION: Heart S1-S2, no murmur is heard CHEST EXAMINATION: Lungs reveal no expiratory wheezes throughout otherwise essentially clear. ABDOMEN: Soft, nontender. Bowel sounds are heard. No organomegaly noted. EXTREMITIES: 2+ peripheral pulses with no evidence of peripheral edema and no calf tenderness noted. NEUROLOGIC patient is awake, alert and oriented -3. it was noted pt is not moving his right upper ext and it is in splint - Labs CBC & Chem 7: 08/10/17 04:05 08/10/17 04:05 Labs: Abnormal Lab Results - Last 24 Hours (Table) 08/09/17 08/09/17 08/10/17 Range/Units 17:05 23:57 04:05 RBC 4.04 L (4.30-5.90) m/uL Hgb 12.9 L (13.0-17.5) gm/dL MCV 100.1 H (80.0-100.0) fL Glucose (74-99) mg/dL POC Glucose (mg/dL) 139 H 170 H (75-99) mg/dL Magnesium (1.6-2.3) mg/dL AST (17-59) U/L ALT (21-72) U/L Alkaline Phosphatase (38-126) U/L Total Protein (6.3-8.2) g/dL Albumin (3.5-5.0) g/dL 08/10/17 08/10/17 08/10/17 Range/Units 04:05 06:51 12:35 RBC (4.30-5.90) m/uL Hgb (13.0-17.5) gm/dL MCV (80.0-100.0) fL Glucose 119 H (74-99) mg/dL POC Glucose (mg/dL) 124 H 146 H (75-99) mg/dL Magnesium 2.4 H (1.6-2.3) mg/dL AST 63 H (17-59) U/L ALT 80 H (21-72) U/L Alkaline Phosphatase 142 H (38-126) U/L Total Protein 5.5 L (6.3-8.2) g/dL Albumin 3.0 L (3.5-5.0) g/dL Assessment and Plan Assessment: -acute delirium, patient has fluctuating in his mental status, Neurologist f/u pt , with work up is still going -acute cholycystis with E.coli s/p laparocopic cholecystectomy -acute resp failure , was on vent , s/p extubation on 08/07/17 -right middle lobe pna -right sided weakness, possible stroke and neurology team is seeing the pt -anemia -UTI -CHF with EF 35-40% -HTN -HLP -h/o CAD, s/p stent Plan: continue with current management , continue with symptomatic treatment , continue with broad spectrum antibiotic , follow closely with surgery , infectious disease, neurology , Neurovascular work up is indicated. prognosis remains guarded giving his multiple complex medical problems and severity. further recommendations to follow
--- NOTE | 2017-08-10 13:45 | P.PN ---
Subjective Progress Note Date: 08/09/17 (Late entry note, critical care time spent 35 minutes) Principal diagnosis: TIA/acute CVA, altered mental status, generalized weakness and medical debility , Uncontrolled malignant hypertension, right hemiparesis, Acute cholecystitis, empyema gallbladder Gram-negative sepsis and bacteremia, severe degree of ischemic cardiomyopathy with ejection fraction of 35%, acute on chronic systolic heart failure, coronary artery disease, 08/09/2017, patient seen eval reexamined during the rounds he is successfully extubated is slightly more awake and alert he is moving his all 4 extremity is still weaker on the right side though, patient is being followed by general surgery and GI as well output is improved through the [facility], patient has been tolerating by mouth modified diet labs reviewed medications reviewed radiographic studies reviewed as well, request PT OT to evaluate, x-ray not performed today, labs reviewed, patient is for MRI of the brain later on today due to runs of ventricular tachycardia has been started on amiodarone and is still on IV amiodarone MRI to be performed once patient comes off of the amiodarone drip. 08/08/2017, patient seen eval examined during the rounds he is been off of respirator for over 24 hours breathing comfortably he is on supplemental oxygen he is been intermittently moving his right upper extremity mostly awake but has intermittent episodes of confusion family is present at bedside, patient able to swallow applesauce with pills, chest x-ray laboratory data reviewed small bilateral pleural effusion likely related to intra-abdominal processes as well as baseline cardiomyopathy 08/07/2017, patient seen eval examined during the rounds he has been on SIMV rate of 8 breathing about 16-18, FiO2 is down to 40%, patient has been placed on CPAP 5 pressure support of 5 on which she was monitor observe for over an hour and arterial blood gases reviewed weaning parameters reviewed as well patient is a 50 more awake and makes her better eye contact some movement 1/5 in right upper extremity has been noted, chest x-ray reviewed laboratory data reviewed as well care plan discussed with the primary service and nursing staff at length and family present at bedside patient was switched to CPAP 5 pressure support of 5 and spontaneous tidal volume were and 500 range with respiratory rate and high teens to low 20s no obvious respirator distress presents slight elevation in blood pressure was however noted likely related to stress of weaning, overall blood pressure is very well controlled with current intervention, patient required 2 doses of morphine overnight otherwise remains off of sedation, as per recommendation of GI services patient will probably require ERCP once extubated 08/06/2017, patient seen eval examined during the rounds patient has been taking off of sedation has been off of propofol for over an hour however noted to have slow rise in blood pressure Coreg dose has been escalated to double the dose patient is awake with a blank stare has been moving left upper and lower extremity fairly well some movement and right lower extremity is present but cannot move right upper extremity, patient has been placed on CPAP of 5 and pressure support of 5 which she tolerated fairly well but still arterial blood gases suggestive of significant hypoxemia, chest x-ray reviewed right lower lobe pneumonia improved with a small pleural effusion, laboratory data reviewed as well care plan discussed with surgical services nursing staff and patient's at length critical care time spent 45 minutes 08/05/2017, patient seen eval reexamined during the rounds currently patient remains on full ventilator support with the assist control mode sed rate is 18 breathing 18, tidal volume is 550, 8 of PEEP, FiO2 is down to 40% patient remains on propofol drip which is gradually being titrated down as per plans for sedation holiday, labs reviewed medications reviewed care plan discussed with the surgical services patient is to be started on tube feed as per their recommendation, telemetry revealed presence of intermittent episodes of the nonsustained ventricular tachycardia as well as multiple PVCs patient has been on beta blockers and calcium channel blockers which were discontinued due to severe hypotension as blood pressure has been stabilized now and going up towards we'll resume those medications likely they will help those PVCs as well. We will defer cardiovascular services for initiation or maintenance of amiodarone. Patient is making adequate urine, chest x-ray laboratory data and medications reviewed noted repeat blood cultures have been negative so far ROM of white cell count is normalize arterial blood gases are adequate chest x-ray reviewed note is made of the NG tube improve aeration noted bilateral bases 08/04/2017, patient seen eval examined during the rounds patient remains sedated with propofol drip attempts to wean oxygen down has been unsuccessful overnight however able to bring down the oxygen to 40% from 50% PEEP has been lowered from 10-8, patient is now taken off a few fed drip ventilator setting is stable but the patient continued to manifest respiratory acidosis vent setting include assist control rate of 18 and tidal volume of 500 PEEP of 1060% oxygen respiratory rate is 12 he is calm arousable opens eyes follow simple commands family is present at the bedside care plan discussed with the family at length in light of severe degree of ischemic cardiomyopathy and very low ejection fraction patient will be kept on respirator for another 24-48 hours and slowly will be weaned, propofol is 15 mics, patient is getting Accu-Cheks with relatively stable sugars, currently patient is on D5 half normal saline 20 K meq of KCl with 100 mL an hour. Chest x-ray from this morning reviewed basal atelectasis and right-sided effusion and right lower lobe consolidation is seen , operative findings reviewed empyema gallbladder noted with severe acute cholecystitis culture reviewed my E. coli is sensitive to Unasyn 01/2018, patient seen and evaluated examined in the ICU this patient has been admitted into the hospital with generalized weakness syncope intermittent runs of V. tach with baseline history of severe degree of cardiomyopathy ischemic in nature with ejection fraction just 30-35% patient has a patchy infiltrate on the right side is being treated for pneumonia and sepsis, around 9 PM patient had episode of increasing shortness of breath increases abdominal pain a computed tomography scan of the abdominal and pelvis revealed presence of cholecystitis, general surgery has been consulted patient continued to increase respiratory distress eventually brought into the ICU where he was intubated patient was initially hypertensive however postintubation has episode of hypertension and earlier this morning required fluid resuscitation he did receive Lasix with some urine output yesterday currently Lasix is being held at it appears that patient is somewhat volume depleted culture results and reports are reviewed patient is growing gram-negative rods in the blood likely source being ascending cholangitis versus urinary tract infection with first being more likely urine culture however is pending urinalysis suggestive of inflammatory processes though. His ventilator settings reviewed currently patient is on assist control rate of 18 breathing 22 he is on tidal volume of 500, PEEP is 10 and FiO2 was initially 100% and gradually titrated down to 60% his lactic acid level was mildly elevated pro calcitonin was elevated to, currently patient is on amiodarone map is around 65-70 he is also on propofol 15 mics normal saline KVO amiodarone drip as 0.5 mg/m, patient is well sedated with current ventilator setting and sedation and also being treated with broad- spectrum antibiotics with IV Zosyn his medications are reviewed given that hypertension is present antihypertensive agents are being held, patient will need IV axis but triple-lumen catheter as well as and A-line consent are being obtained 81-year-old male with history of ischemic cardiomyopathy ejection fraction of 30 -35% has not been feeling well for the last 2-3 week with increasing shortness of breath patient does have a history of chronic lower extremity edema with a history of coronary artery disease status post CABG back in 1995. Patient for the last 2 weeks has not been feeling well has been more short of breath than usual has dry nonproductive cough as well which is intermittent off and on due to progressive increasing shortness of breath lately has been feeling weak as well with some intermittent episodes of dizziness lightheadedness patient came into the emergency department he did spike a fever up to 102, over his white cell count were normal chest x-ray showed borderline cardiomegaly and some early infiltrate in the right midlung field cannot be excluded. Patient about 2 weeks ago had a recent fall however he never lost his consciousness no seizure -like activity was seen patient appears to have developed nondisplaced left 10th rib fracture as seen on the rib x-rays. On arrival patient appeared to be in acute exacerbation of CHF likely acute on chronic systolic heart failure with elevated BNP of over 1800, in addition to above patient had echocardiogram which revealed ejection fraction 30% with inferior basal hypokinesia, patient also noted to have intermittent runs of PVCs and has been placed on IV amiodarone, this requestioning patient denies any chest pain or radiation of pain denies any sputum production denies any night sweats fever or chills he denies any seizure-like activity he did have intermittent dizziness usually turning around. He denies any bowel or bladder dysfunction he has chronic lower extremity trace edema. Objective - Vital Signs Vital signs: Vital Signs Temp 98.7 F 08/10/17 12:00 Pulse 84 08/10/17 12:00 Resp 16 08/10/17 12:00 BP 154/92 08/10/17 12:00 Pulse Ox 99 08/10/17 12:00 Intake & Output 08/09/17 08/10/17 08/10/17 18:59 06:59 18:59 Intake Total 750.2 980 120 Output Total 845 1490 1000 Balance -94.8 -510 -880 Weight 106.5 kg 107 kg Intake: IV 750.2 980 120 0.9 at KVO 100 80 20 Amiodarone 450 mg In 100.2 Dextrose 5% in Water 250 ml @ 1 MG/MIN 34.53 mls/ hr IV .[id number] [facility] Rx#: [id number] Ampicillin-Sulbactam 3 gm 100 100 In Sodium Chloride 0.9% 100 ml @ 100 mls/hr IVPB Q6HR [facility] Rx#:[id number] D5-0.45% NaCl with KCl 450 600 100 20Meq/l 1,000 ml @ 50 mls /hr IV .Q20H [facility] Rx#: [id number] magnesium sulfate 200 Output: Drainage 30 90 Right Lower Lateral 30 90 Abdomen Urine 815 1400 1000 Other: Voiding Method Indwelling Catheter Indwelling Catheter Indwelling Catheter # Bowel Movements 1 ABP, PAP, CO, CI - Last Documented Arterial Blood Pressure 158/76 - Exam - Constitutional General appearance: average body habitus, awake and opens eyes follow simple commands- EENT Eyes: EOMI, PERRLA, normal appearance ENT: hard of hearing Ears: bilateral: normal - Neck Neck: normal ROM Carotids: right: bruit absent, bilateral: upstroke normal Thyroid: bilateral: normal size - Respiratory Respiratory: bilateral: CTA, few basal crackles bilaterally are present - Cardiovascular Heart sounds: normal: S1 and S2 no gallop rub or murmur - Gastrointestinal General gastrointestinal: Normal to hypoactive bowel sounds, soft - Integumentary Integumentary: normal, normal turgor - Neurologic More awake follows simple commands intermittently moving all 4 extremity more strength in right upper extremity has been noted as he can lift it against gravity - Musculoskeletal Musculoskeletal: Well developed, week right upper extremity - Psychiatric Psychiatric: Unable to assess - Labs CBC & Chem 7: 08/10/17 04:05 08/10/17 04:05 Labs: Abnormal Lab Results - Last 24 Hours (Table) 08/09/17 08/09/17 08/10/17 Range/Units 17:05 23:57 04:05 RBC 4.04 L (4.30-5.90) m/uL Hgb 12.9 L (13.0-17.5) gm/dL MCV 100.1 H (80.0-100.0) fL Glucose (74-99) mg/dL POC Glucose (mg/dL) 139 H 170 H (75-99) mg/dL Magnesium (1.6-2.3) mg/dL AST (17-59) U/L ALT (21-72) U/L Alkaline Phosphatase (38-126) U/L Total Protein (6.3-8.2) g/dL Albumin (3.5-5.0) g/dL 08/10/17 08/10/17 08/10/17 Range/Units 04:05 06:51 12:35 RBC (4.30-5.90) m/uL Hgb (13.0-17.5) gm/dL MCV (80.0-100.0) fL Glucose 119 H (74-99) mg/dL POC Glucose (mg/dL) 124 H 146 H (75-99) mg/dL Magnesium 2.4 H (1.6-2.3) mg/dL AST 63 H (17-59) U/L ALT 80 H (21-72) U/L Alkaline Phosphatase 142 H (38-126) U/L Total Protein 5.5 L (6.3-8.2) g/dL Albumin 3.0 L (3.5-5.0) g/dL Assessment and Plan Assessment: Uncontrolled malignant hypertension, relatively better under control Right upper extremity weakness evaluated for left hemispheric stroke likely TIA , patient appears to be recovering with 2 negative computed tomography scan of the head, MRI of the brain is pending for this afternoon Intermittent runs of nonsustained ventricular tachycardia and multiple PVCs with stable electrolytes likely related to ischemic cardiomyopathy, on IV amiodarone Severe sepsis and septic shock related to gram-negative bacteremia related to empyema bladder Empyema gallbladder Acute cholangitis and gram-negative bacteremia Acute cholecystitis Early developing pneumonia in right lower lobe with effusion Acute hypoxic and hypercapnic respirator failure multifactorial related to above Spiking fever may be related to above however will follow up on urine culture results and report Acute exacerbation of CHF likely acute on chronic systolic heart failure with ejection fraction of 30-35% Status post fall with left 10th rib fracture Coronary artery disease and ischemic cardiomyopathy Intermittent episodes of PVCs and arrhythmia, patient is on amiodarone currently History of BPH Dyslipidemia hypertension hypertensive cardiovascular disease Plan: Continue Coreg continue to hold Norvasc, continue labetalol 20 mg IV every 4 when necessary and along with hydralazine Computed tomography scan of the head without contrast results and reports reviewed, MRI later on today Reviewed neurology recommendations Patient is spontaneously breathing with adequate oxygenation Observe off of vasopressors Medicine adjusted Continued DVT and peptic ulcer disease prophylaxis Electrolyte replacement as tolerated Surgical consultation recommendations reviewed Broad-spectrum antibiotics Breathing treatment Follow-up on urine and blood culture results and report Optimize cardiovascular therapy Repeat labs and x-ray tomorrow Physical therapy increase activity as tolerated Plans for ERCP on hold for now PTOT evaluation increase activity as tolerated keep patient in ICU for now Discussed with surgical services, nursing staff, patient's at length Time with Patient: Greater than 30
--- NOTE | 2017-08-10 13:49 | P.PN ---
Subjective Progress Note Date: 08/10/17 Principal diagnosis: TIA/acute CVA, altered mental status, generalized weakness and medical debility , Uncontrolled malignant hypertension, right hemiparesis, Acute cholecystitis, empyema gallbladder Gram-negative sepsis and bacteremia, severe degree of ischemic cardiomyopathy with ejection fraction of 35%, acute on chronic systolic heart failure, coronary artery disease, 08/10/2017, patient seen eval reexamined during the rounds clinically patient has been doing relatively better in terms of the eye contact intermittently following commands but remains very confused patient has the intermittent weakness now the right upper extremity is more weaker, MRI couldn't be performed due to presence of clip, labs reviewed medications reviewed today's chest x-ray reviewed as well, patient has been tolerating modified diet fairly well 08/09/2017, patient seen eval reexamined during the rounds he is successfully extubated is slightly more awake and alert he is moving his all 4 extremity is still weaker on the right side though, patient is being followed by general surgery and GI as well output is improved through the [facility], patient has been tolerating by mouth modified diet labs reviewed medications reviewed radiographic studies reviewed as well, request PT OT to evaluate, x-ray not performed today, labs reviewed, patient is for MRI of the brain later on today due to runs of ventricular tachycardia has been started on amiodarone and is still on IV amiodarone MRI to be performed once patient comes off of the amiodarone drip. 08/08/2017, patient seen eval examined during the rounds he is been off of respirator for over 24 hours breathing comfortably he is on supplemental oxygen he is been intermittently moving his right upper extremity mostly awake but has intermittent episodes of confusion family is present at bedside, patient able to swallow applesauce with pills, chest x-ray laboratory data reviewed small bilateral pleural effusion likely related to intra-abdominal processes as well as baseline cardiomyopathy 08/07/2017, patient seen eval examined during the rounds he has been on SIMV rate of 8 breathing about 16-18, FiO2 is down to 40%, patient has been placed on CPAP 5 pressure support of 5 on which she was monitor observe for over an hour and arterial blood gases reviewed weaning parameters reviewed as well patient is a 50 more awake and makes her better eye contact some movement 1/5 in right upper extremity has been noted, chest x-ray reviewed laboratory data reviewed as well care plan discussed with the primary service and nursing staff at length and family present at bedside patient was switched to CPAP 5 pressure support of 5 and spontaneous tidal volume were and 500 range with respiratory rate and high teens to low 20s no obvious respirator distress presents slight elevation in blood pressure was however noted likely related to stress of weaning, overall blood pressure is very well controlled with current intervention, patient required 2 doses of morphine overnight otherwise remains off of sedation, as per recommendation of GI services patient will probably require ERCP once extubated 08/06/2017, patient seen eval examined during the rounds patient has been taking off of sedation has been off of propofol for over an hour however noted to have slow rise in blood pressure Coreg dose has been escalated to double the dose patient is awake with a blank stare has been moving left upper and lower extremity fairly well some movement and right lower extremity is present but cannot move right upper extremity, patient has been placed on CPAP of 5 and pressure support of 5 which she tolerated fairly well but still arterial blood gases suggestive of significant hypoxemia, chest x-ray reviewed right lower lobe pneumonia improved with a small pleural effusion, laboratory data reviewed as well care plan discussed with surgical services nursing staff and patient's at length critical care time spent 45 minutes 08/05/2017, patient seen eval reexamined during the rounds currently patient remains on full ventilator support with the assist control mode sed rate is 18 breathing 18, tidal volume is 550, 8 of PEEP, FiO2 is down to 40% patient remains on propofol drip which is gradually being titrated down as per plans for sedation holiday, labs reviewed medications reviewed care plan discussed with the surgical services patient is to be started on tube feed as per their recommendation, telemetry revealed presence of intermittent episodes of the nonsustained ventricular tachycardia as well as multiple PVCs patient has been on beta blockers and calcium channel blockers which were discontinued due to severe hypotension as blood pressure has been stabilized now and going up towards we'll resume those medications likely they will help those PVCs as well. We will defer cardiovascular services for initiation or maintenance of amiodarone. Patient is making adequate urine, chest x-ray laboratory data and medications reviewed noted repeat blood cultures have been negative so far ROM of white cell count is normalize arterial blood gases are adequate chest x-ray reviewed note is made of the NG tube improve aeration noted bilateral bases 08/04/2017, patient seen eval examined during the rounds patient remains sedated with propofol drip attempts to wean oxygen down has been unsuccessful overnight however able to bring down the oxygen to 40% from 50% PEEP has been lowered from 10-8, patient is now taken off a few fed drip ventilator setting is stable but the patient continued to manifest respiratory acidosis vent setting include assist control rate of 18 and tidal volume of 500 PEEP of 1060% oxygen respiratory rate is 12 he is calm arousable opens eyes follow simple commands family is present at the bedside care plan discussed with the family at length in light of severe degree of ischemic cardiomyopathy and very low ejection fraction patient will be kept on respirator for another 24-48 hours and slowly will be weaned, propofol is 15 mics, patient is getting Accu-Cheks with relatively stable sugars, currently patient is on D5 half normal saline 20 K meq of KCl with 100 mL an hour. Chest x-ray from this morning reviewed basal atelectasis and right-sided effusion and right lower lobe consolidation is seen , operative findings reviewed empyema gallbladder noted with severe acute cholecystitis culture reviewed my E. coli is sensitive to Unasyn 01/2018, patient seen and evaluated examined in the ICU this patient has been admitted into the hospital with generalized weakness syncope intermittent runs of V. tach with baseline history of severe degree of cardiomyopathy ischemic in nature with ejection fraction just 30-35% patient has a patchy infiltrate on the right side is being treated for pneumonia and sepsis, around 9 PM patient had episode of increasing shortness of breath increases abdominal pain a computed tomography scan of the abdominal and pelvis revealed presence of cholecystitis, general surgery has been consulted patient continued to increase respiratory distress eventually brought into the ICU where he was intubated patient was initially hypertensive however postintubation has episode of hypertension and earlier this morning required fluid resuscitation he did receive Lasix with some urine output yesterday currently Lasix is being held at it appears that patient is somewhat volume depleted culture results and reports are reviewed patient is growing gram-negative rods in the blood likely source being ascending cholangitis versus urinary tract infection with first being more likely urine culture however is pending urinalysis suggestive of inflammatory processes though. His ventilator settings reviewed currently patient is on assist control rate of 18 breathing 22 he is on tidal volume of 500, PEEP is 10 and FiO2 was initially 100% and gradually titrated down to 60% his lactic acid level was mildly elevated pro calcitonin was elevated to, currently patient is on amiodarone map is around 65-70 he is also on propofol 15 mics normal saline KVO amiodarone drip as 0.5 mg/m, patient is well sedated with current ventilator setting and sedation and also being treated with broad- spectrum antibiotics with IV Zosyn his medications are reviewed given that hypertension is present antihypertensive agents are being held, patient will need IV axis but triple-lumen catheter as well as and A-line consent are being obtained 81-year-old male with history of ischemic cardiomyopathy ejection fraction of 30 -35% has not been feeling well for the last 2-3 week with increasing shortness of breath patient does have a history of chronic lower extremity edema with a history of coronary artery disease status post CABG back in 1995. Patient for the last 2 weeks has not been feeling well has been more short of breath than usual has dry nonproductive cough as well which is intermittent off and on due to progressive increasing shortness of breath lately has been feeling weak as well with some intermittent episodes of dizziness lightheadedness patient came into the emergency department he did spike a fever up to 102, over his white cell count were normal chest x-ray showed borderline cardiomegaly and some early infiltrate in the right midlung field cannot be excluded. Patient about 2 weeks ago had a recent fall however he never lost his consciousness no seizure -like activity was seen patient appears to have developed nondisplaced left 10th rib fracture as seen on the rib x-rays. On arrival patient appeared to be in acute exacerbation of CHF likely acute on chronic systolic heart failure with elevated BNP of over 1800, in addition to above patient had echocardiogram which revealed ejection fraction 30% with inferior basal hypokinesia, patient also noted to have intermittent runs of PVCs and has been placed on IV amiodarone, this requestioning patient denies any chest pain or radiation of pain denies any sputum production denies any night sweats fever or chills he denies any seizure-like activity he did have intermittent dizziness usually turning around. He denies any bowel or bladder dysfunction he has chronic lower extremity trace edema. Objective - Vital Signs Vital signs: Vital Signs Temp 98.7 F 08/10/17 12:00 Pulse 84 08/10/17 12:00 Resp 16 08/10/17 12:00 BP 154/92 08/10/17 12:00 Pulse Ox 99 08/10/17 12:00 Intake & Output 0508/10/17 08/10/17 18:59 06:59 18:59 Intake Total 750.2 980 120 Output Total 845 1490 1000 Balance -94.8 -510 -880 Weight 106.5 kg 107 kg Intake: IV 750.2 980 120 0.9 at KVO 100 80 20 Amiodarone 450 mg In 100.2 Dextrose 5% in Water 250 ml @ 1 MG/MIN 34.53 mls/ hr IV .Q7H31M [facility] Rx#: [id number] Ampicillin-Sulbactam 3 gm 100 100 In Sodium Chloride 0.9% 100 ml @ 100 mls/hr IVPB Q6HR [facility] Rx#:[id number] D5-0.45% NaCl with KCl 450 600 100 20Meq/l 1,000 ml @ 50 mls /hr IV .Q20H [facility] Rx#: [id number] magnesium sulfate 200 Output: Drainage 30 90 Right Lower Lateral 30 90 Abdomen Urine 815 1400 1000 Other: Voiding Method Indwelling Catheter Indwelling Catheter Indwelling Catheter # Bowel Movements 1 ABP, PAP, CO, CI - Last Documented Arterial Blood Pressure 158/76 - Exam - Constitutional General appearance: average body habitus, awake and opens eyes follow simple commands- EENT Eyes: EOMI, PERRLA, normal appearance ENT: hard of hearing Ears: bilateral: normal - Neck Neck: normal ROM Carotids: right: bruit absent, bilateral: upstroke normal Thyroid: bilateral: normal size - Respiratory Respiratory: bilateral: CTA, few basal crackles bilaterally are present - Cardiovascular Heart sounds: normal: S1 and S2 no gallop rub or murmur - Gastrointestinal General gastrointestinal: Normal to hypoactive bowel sounds, soft - Integumentary Integumentary: normal, normal turgor - Neurologic More awake follows simple commands intermittently moving all 4 extremity more strength in right upper extremity however today he is not moving it- Musculoskeletal Musculoskeletal: Well developed, week right upper extremity - Psychiatric Psychiatric: Unable to assess - Labs CBC & Chem 7: 08/10/17 04:05 08/10/17 04:05 Labs: Abnormal Lab Results - Last 24 Hours (Table) 08/09/17 08/09/17 08/10/17 Range/Units 17:05 23:57 04:05 RBC 4.04 L (4.30-5.90) m/uL Hgb 12.9 L (13.0-17.5) gm/dL MCV 100.1 H (80.0-100.0) fL Glucose (74-99) mg/dL POC Glucose (mg/dL) 139 H 170 H (75-99) mg/dL Magnesium (1.6-2.3) mg/dL AST (17-59) U/L ALT (21-72) U/L Alkaline Phosphatase (38-126) U/L Total Protein (6.3-8.2) g/dL Albumin (3.5-5.0) g/dL 08/10/17 08/10/17 08/10/17 Range/Units 04:05 06:51 12:35 RBC (4.30-5.90) m/uL Hgb (13.0-17.5) gm/dL MCV (80.0-100.0) fL Glucose 119 H (74-99) mg/dL POC Glucose (mg/dL) 124 H 146 H (75-99) mg/dL Magnesium 2.4 H (1.6-2.3) mg/dL AST 63 H (17-59) U/L ALT 80 H (21-72) U/L Alkaline Phosphatase 142 H (38-126) U/L Total Protein 5.5 L (6.3-8.2) g/dL Albumin 3.0 L (3.5-5.0) g/dL Assessment and Plan Assessment: Uncontrolled malignant hypertension, relatively better under contro Right upper extremity weakness evaluated for left hemispheric stroke likely TIA , patient appears to be recovering with 2 negative computed tomography scan of the head, MRI of the brain cannot be performed due to presence of Intermittent runs of nonsustained ventricular tachycardia and multiple PVCs with stable electrolytes likely related to ischemic cardiomyopathy, on IV amiodarone Severe sepsis and septic shock related to gram-negative bacteremia related to empyema bladder Empyema gallbladder Acute cholangitis and gram-negative bacteremia Acute cholecystitis Early developing pneumonia in right lower lobe with effusion Acute hypoxic and hypercapnic respirator failure multifactorial related to above Spiking fever may be related to above however will follow up on urine culture results and report Acute exacerbation of CHF likely acute on chronic systolic heart failure with ejection fraction of 30-35% Status post fall with left 10th rib fracture Coronary artery disease and ischemic cardiomyopathy Intermittent episodes of PVCs and arrhythmia, patient is on amiodarone currently History of BPH Dyslipidemia hypertension hypertensive cardiovascular disease Plan: Continue Coreg continue to hold Norvasc, continue labetalol 20 mg IV every 4 when necessary and along with hydralazine Ammann continue oral amiodarone monitor labs closely Computed tomography scan of the head without contrast results and reports reviewed, MRI pending for now as due to presence of clip in the gallbladder area post surgery cannot be performed Reviewed neurology recommendations Patient is spontaneously breathing with adequate oxygenation Observe off of vasopressors Medicine adjusted Continued DVT and peptic ulcer disease prophylaxis Electrolyte replacement as tolerated Surgical consultation recommendations reviewed Broad-spectrum antibiotics Breathing treatment Follow-up on urine and blood culture results and report Optimize cardiovascular therapy Repeat labs and x-ray tomorrow Physical therapy increase activity as tolerated Plans for ERCP on hold for now PTOT evaluation increase activity as tolerated keep patient in ICU for now Discussed with surgical services, nursing staff, patient's at length Time with Patient: Greater than 30
--- NOTE | 2017-08-10 15:10 | P.PN ---
Subjective Progress Note Date: 08/10/17 Principal diagnosis: Acute cholecystitis, sepsis, nonsustained V. tach This patient is extubated yesterday. He seemed to be alert but slow in responding to questions. He does identify is and son accurately. He doesn 't seem to be in acute distress. He is maintaining sinus rhythm but having episodes of nonsustained ventricular tachycardia. Patient is status post cholecystectomy. Patient has been having some biliary drainage. So, it is felt that patient may need ERCP. Patient is on amiodarone, but still having the nonsustained V. tach. I'm going to add Mexitil 150 mg by mouth twice a day. Patient is being transferred to telemetry unit. Patient still has evidence of right-sided weakness. Overall prognosis is still guarded 08/10/2017: Patient is alert and following commands though is swollen mentation. He still has right-sided weakness. Doesn't appear to be in acute distress. He is in atrial fibrillation. Rate is controlled. Blood pressure is better controlled. No ventricular tachycardia arrhythmias. Patient is on amiodarone and Mexitil. Patient will continue current medical therapy. Patient is waiting to go to telemetry unit. Physical therapy and speech therapy. Swallowing probably she is being done. Prognosis is still guarded Objective - Vital Signs Vital signs: Vital Signs Temp 98.7 F 08/10/17 12:00 Pulse 84 08/10/17 12:00 Resp 16 08/10/17 12:00 BP 154/92 08/10/17 12:00 Pulse Ox 99 08/10/17 12:00 Intake & Output 08/09/17 08/10/17 08/10/17 18:59 06:59 18:59 Intake Total 750.2 980 120 Output Total 845 1490 1000 Balance -94.8 -510 -880 Weight 106.5 kg 107 kg Intake: IV 750.2 980 120 0.9 at KVO 100 80 20 Amiodarone 450 mg In 100.2 Dextrose 5% in Water 250 ml @ 1 MG/MIN 34.53 mls/ hr IV .Q7H31M [facility] Rx#: [id number] Ampicillin-Sulbactam 3 gm 100 100 In Sodium Chloride 0.9% 100 ml @ 100 mls/hr IVPB Q6HR [facility] Rx#:[id number] D5-0.45% NaCl with KCl 450 600 100 20Meq/l 1,000 ml @ 50 mls /hr IV .Q20H [facility] Rx#: [id number] magnesium sulfate 200 Output: Drainage 30 90 Right Lower Lateral 30 90 Abdomen Urine 815 1400 1000 Other: Voiding Method Indwelling Catheter Indwelling Catheter Indwelling Catheter # Bowel Movements 1 ABP, PAP, CO, CI - Last Documented Arterial Blood Pressure 158/76 - Exam GENERAL EXAM: Patient is alert but slow in responding. HEENT: Normal NECK: No masses, no nuchal rigidity. CHEST: No chest wall deformity. LUNGS: Diminished breath sounds at the bases HEART: S1 and S2 normal with no audible mumurs or gallops. ABDOMEN: Postsurgical SKIN: No rashes CENTRAL NERVOUS SYSTEM: Seems to be patient is able to move the right arm EXTREMITIES: No cyanosis, clubbing or edema. - Labs CBC & Chem 7: 08/10/17 04:05 08/10/17 04:05 Labs: Abnormal Lab Results - Last 24 Hours (Table) 08/09/17 08/09/17 08/10/17 Range/Units 17:05 23:57 04:05 RBC 4.04 L (4.30-5.90) m/uL Hgb 12.9 L (13.0-17.5) gm/dL MCV 100.1 H (80.0-100.0) fL Glucose (74-99) mg/dL POC Glucose (mg/dL) 139 H 170 H (75-99) mg/dL Magnesium (1.6-2.3) mg/dL AST (17-59) U/L ALT (21-72) U/L Alkaline Phosphatase (38-126) U/L Total Protein (6.3-8.2) g/dL Albumin (3.5-5.0) g/dL 08/10/17 08/10/17 08/10/17 Range/Units 04:05 06:51 12:35 RBC (4.30-5.90) m/uL Hgb (13.0-17.5) gm/dL MCV (80.0-100.0) fL Glucose 119 H (74-99) mg/dL POC Glucose (mg/dL) 124 H 146 H (75-99) mg/dL Magnesium 2.4 H (1.6-2.3) mg/dL AST 63 H (17-59) U/L ALT 80 H (21-72) U/L Alkaline Phosphatase 142 H (38-126) U/L Total Protein 5.5 L (6.3-8.2) g/dL Albumin 3.0 L (3.5-5.0) g/dL Assessment and Plan (1) Nonsustained ventricular tachycardia Current Visit: Yes Status: Acute Code(s): I47.2 - VENTRICULAR TACHYCARDIA SNOMED Code(s): 104679792 (2) Cholecystitis Current Visit: Yes Status: Acute Code(s): K81.9 - CHOLECYSTITIS, UNSPECIFIED SNOMED Code(s): 24571929 (3) Coronary artery disease Current Visit: Yes Status: Acute Code(s): I25.10 - ATHSCL HEART DISEASE OF [place] CORONARY ARTERY W/O ANG PCTRS SNOMED Code(s): 26562465 (4) Systolic heart failure Current Visit: Yes Status: Acute Code(s): I50.20 - UNSPECIFIED SYSTOLIC ( CONGESTIVE) HEART FAILURE SNOMED Code(s): 248448379 (5) Cardiomyopathy Current Visit: Yes Status: Acute Code(s): I42.9 - CARDIOMYOPATHY, UNSPECIFIED SNOMED Code(s): 30382869 (6) CVA (cerebral vascular accident) Current Visit: Yes Status: Acute Code(s): I63.9 - CEREBRAL INFARCTION, UNSPECIFIED SNOMED Code(s): 872536236 Plan: Speech therapy and physical therapy. Transfer to telemetry unit. Increase activity. Continue current medical therapy along with anticoagulation.
--- NOTE | 2017-08-10 15:36 | P.PN ---
Subjective Progress Note Date: 08/10/17 Principal diagnosis: Status post cholecystectomy for empyema of the gallbladder, postoperative bile leak irrigation is seen on rounds. He remains in the ICU. There is been some continued confusion. Intermittently he is using his right upper extremity. He' s been taking some liquids and tolerating those. Plan is to give him thickened consistency. Objective - Vital Signs Vital signs: Vital Signs Temp 98.7 F 08/10/17 12:00 Pulse 84 08/10/17 12:00 Resp 16 08/10/17 12:00 BP 154/92 08/10/17 12:00 Pulse Ox 99 08/10/17 12:00 Intake & Output 08/09/17 08/10/17 08/10/17 18:59 06:59 18:59 Intake Total 750.2 980 120 Output Total 845 1490 1000 Balance -94.8 -510 -880 Weight 106.5 kg 107 kg Intake: IV 750.2 980 120 0.9 at KVO 100 80 20 Amiodarone 450 mg In 100.2 Dextrose 5% in Water 250 ml @ 1 MG/MIN 34.53 mls/ hr IV .Q7H31M [facility] Rx#: [id number] Ampicillin-Sulbactam 3 gm 100 100 In Sodium Chloride 0.9% 100 ml @ 100 mls/hr IVPB Q6HR [facility] Rx#:[id number] D5-0.45% NaCl with KCl 450 600 100 20Meq/l 1,000 ml @ 50 mls /hr IV .Q20H [facility] Rx#: [id number] magnesium sulfate 200 Output: Drainage 30 90 Right Lower Lateral 30 90 Abdomen Urine 815 1400 1000 Other: Voiding Method Indwelling Catheter Indwelling Catheter Indwelling Catheter # Bowel Movements 1 ABP, PAP, CO, CI - Last Documented Arterial Blood Pressure 158/76 - Constitutional Constitutional Comment(s): appears to respond appropriately but speech is a little garbled General appearance: Present: cooperative, no acute distress - Respiratory Respiratory: bilateral: CTA - Cardiovascular Rhythm: other (regular about a little tachycardic) - Gastrointestinal General gastrointestinal: Present: normal bowel sounds, soft Localized gastrointestinal: surgical scar: diffuse (incisions healing without cellulitis. There is some bile tinged fluid in the drain bulb) - Labs CBC & Chem 7: 08/10/17 04:05 08/10/17 04:05 Labs: Abnormal Lab Results - Last 24 Hours (Table) 08/09/17 08/09/17 08/10/17 Range/Units 17:05 23:57 04:05 RBC 4.04 L (4.30-5.90) m/uL Hgb 12.9 L (13.0-17.5) gm/dL MCV 100.1 H (80.0-100.0) fL Glucose (74-99) mg/dL POC Glucose (mg/dL) 139 H 170 H (75-99) mg/dL Magnesium (1.6-2.3) mg/dL AST (17-59) U/L ALT (21-72) U/L Alkaline Phosphatase (38-126) U/L Total Protein (6.3-8.2) g/dL Albumin (3.5-5.0) g/dL 08/10/17 08/10/17 08/10/17 Range/Units 04:05 06:51 12:35 RBC (4.30-5.90) m/uL Hgb (13.0-17.5) gm/dL MCV (80.0-100.0) fL Glucose 119 H (74-99) mg/dL POC Glucose (mg/dL) 124 H 146 H (75-99) mg/dL Magnesium 2.4 H (1.6-2.3) mg/dL AST 63 H (17-59) U/L ALT 80 H (21-72) U/L Alkaline Phosphatase 142 H (38-126) U/L Total Protein 5.5 L (6.3-8.2) g/dL Albumin 3.0 L (3.5-5.0) g/dL Assessment and Plan (1) Cholecystitis Current Visit: Yes Status: Acute Code(s): K81.9 - CHOLECYSTITIS, UNSPECIFIED SNOMED Code(s): 56162446 (2) Bile leak, postoperative Current Visit: Yes Status: Acute Code(s): K91.89 - OTH POSTPROCEDURAL COMPLICATIONS AND DISORDERS OF DGSTV SYS; K83.8 - OTHER SPECIFIED DISEASES OF BILIARY TRACT SNOMED Code(s): 540834965 (3) Empyema of gallbladder Current Visit: Yes Status: Acute Code(s): K81.0 - ACUTE CHOLECYSTITIS SNOMED Code(s): 46924299 (4) Systolic heart failure Current Visit: Yes Status: Acute Code(s): I50.20 - UNSPECIFIED SYSTOLIC ( CONGESTIVE) HEART FAILURE SNOMED Code(s): 599256198 Plan: Continue to monitor the drain.continue medical care. He's currently surgically stable.
--- NOTE | 2017-08-10 18:19 | PN ---
PROGRESS NOTE DATE OF SERVICE: 08/10/2017 REASON FOR FOLLOWUP: E coli bacteremia secondary to acute cholecystitis. INTERVAL HISTORY: The patient is afebrile. He has been slightly more awake and alert today, breathing comfortably. Denies any chest pain. No cough or any abdominal pain. PHYSICAL EXAMINATION: Blood pressure 154/92 with a pulse of 84, temperature 98.7. He is 99% on 2 L nasal cannula. General description is an elderly male up in the bed in no distress. RESPIRATORY SYSTEM: Unlabored breathing. Clear to auscultation anteriorly. HEART: S1, S2. Regular rate and rhythm. ABDOMEN: Soft. Slightly distended. No guarding or rigidity. LABS: Hemoglobin is 12.9, white count 8.4, BUN of 16, creatinine 0.90. DIAGNOSTIC IMPRESSION AND PLAN: Patient with Escherichia coli bacteremia secondary to the acute cholecystitis, status post open cholecystectomy. Patient has been slowly waking up. He is currently on Unasyn; that will be continued. Hopefully he will finish therapy with oral antibiotic once his oral intake has improved. Continue with supportive care. MMODL / IJN: [id number] /
[2017-08-10 19:01] LABS: Glucose,Whole Blood 115 mg/dL (75-99)
[2017-08-10] MEDS: ALLOPURINOL 300 MG TAB PO SCH (21:07)
[2017-08-10] MEDS: amLODIPine 5 MG TAB PO SCH (21:07)
[2017-08-10] MEDS: AMIODARONE 200 MG TAB PO SCH (21:08)
[2017-08-10] MEDS: FAMOTIDINE 20 MG TAB PO SCH (21:08)
[2017-08-11 00:27] LABS: Glucose,Whole Blood 116 mg/dL (75-99)
[2017-08-11] MEDS: METOCLOPRAMIDE 5 MG/ML 2 ML VIAL IVP SCH ×4 (00:27→17:19)
[2017-08-11] MEDS: AMPICILLIN-SULBACTAM 3 GM in SODIUM CHLORIDE 0.9% 100 ML IVPB SCH ×4 (00:28→17:18)
[2017-08-11] MEDS: INSULIN ASPART 100 UNIT/ML 1 ML 10 ML VIAL SQ SCH ×4 (00:28→17:19)
[2017-08-11] MEDS: MEXILETINE 150 MG CAP PO SCH ×3 (00:44→17:19)
[2017-08-11] MEDS: D5-0.45% NACL WITH KCL 20MEQ/L 1,000 ML IV SCH ×2 (04:39→13:26)
[2017-08-11 05:19] LABS: Basophils % (A) 0 %; Eosinophils # (A) 0.1 k/uL (0-0.7); Eosinophils % (A) 1 %; HCT 37.3 % (39.0-53.0); HGB 12.2 gm/dL (13.0-17.5); Lymphocytes # (A) 1.4 k/uL (1.0-4.8); Lymphocytes % (A) 16 %; MCH 32.8 pg (25.0-35.0); MCHC 32.7 g/dL (31.0-37.0); MCV 100.3 fL (80.0-100.0); Macrocytosis Slight; Mean Platelet Volume 8.3; Monocytes # (A) 0.5 k/uL (0-1.0); Monocytes % (A) 5 %; Neutrophils # (A) 6.5 k/uL (1.3-7.7); Neutrophils % (A) 75 %; Platelet Count 259 k/uL (150-450); RBC 3.72 m/uL (4.30-5.90); RDW 13.9 % (11.5-15.5); WBC 8.6 k/uL (3.8-10.6)
[2017-08-11 05:44] LABS: Anion Gap 10 mmol/L; Blood Urea Nitrogen 15 mg/dL (9-20); Carbon Dioxide 24 mmol/L (22-30); Chloride 104 mmol/L (98-107); Glucose 118 mg/dL (74-99); Magnesium 2.1 mg/dL (1.6-2.3); Phosphorus 4.1 mg/dL (2.5-4.5); Potassium 4.2 mmol/L (3.5-5.1); Sodium 138 mmol/L (137-145)
[2017-08-11 06:22] LABS: Glucose,Whole Blood 108 mg/dL (75-99)
[2017-08-11] MEDS: SYMBICORT 160-4.5 MCG INHALER INHALATION SCH ×2 (07:41→19:45)
[2017-08-11] MEDS: IPRATROPIUM-ALBUTEROL 3 ML NEB INHALATION SCH ×4 (07:41→19:45)
--- NOTE | 2017-08-11 10:40 | P.PN ---
Subjective Progress Note Date: 08/11/17 Patient seen and examined at bedside. Resting comfortably. Currently not in pain. Nursing at bedside. Objective - Vital Signs Vital signs: Vital Signs Temp 98.3 F 08/11/17 04:00 Pulse 96 08/11/17 08:00 Resp 16 08/11/17 08:00 BP 170/87 08/11/17 08:00 Pulse Ox 98 08/11/17 08:00 Intake & Output 08/10/17 08/11/17 08/11/17 18:59 06:59 18:59 Intake Total 300 750 60 Output Total 1530 1395 120 Balance -1230 -645 -60 Weight 104.5 kg Intake: IV 180 750 60 0.9 at KVO 30 100 10 Ampicillin-Sulbactam 3 gm 100 In Sodium Chloride 0.9% 100 ml @ 100 mls/hr IVPB Q6HR [facility] Rx#:[id number] D5-0.45% NaCl with KCl 150 550 50 20Meq/l 1,000 ml @ 50 mls /hr IV .Q20H [facility] Rx#: [id number] Oral 120 Output: Drainage 30 40 20 Right Lower Lateral 30 40 20 Abdomen Urine 1500 1355 100 Other: Voiding Method Indwelling Catheter Indwelling Catheter # Bowel Movements 1 1 ABP, PAP, CO, CI - Last Documented Arterial Blood Pressure 158/76 - Constitutional General appearance: Present: cooperative, no acute distress - Respiratory Details: No difficulty with respiration - Gastrointestinal Gastrointestinal Comment(s): Soft, appropriate tenderness, nondistended, no rebound, no guarding, incision site clean, dry and intact with barbara in place, XAVI drain in place with serosanguineous output - Musculoskeletal Musculoskeletal: Present: generalized weakness - Labs CBC & Chem 7: 08/11/17 04:57 08/11/17 04:57 Labs: Abnormal Lab Results - Last 24 Hours (Table) 08/10/17 08/10/17 08/11/17 Range/Units 12:35 19:00 00:15 RBC (4.30-5.90) m/uL Hgb (13.0-17.5) gm/dL Hct (39.0-53.0) % MCV (80.0-100.0) fL Glucose (74-99) mg/dL POC Glucose (mg/dL) 146 H 115 H 116 H (75-99) mg/dL 08/11/17 08/11/17 08/11/17 Range/Units 04:57 04:57 06:20 RBC 3.72 L (4.30-5.90) m/uL Hgb 12.2 L (13.0-17.5) gm/dL Hct 37.3 L (39.0-53.0) % MCV 100.3 H (80.0-100.0) fL Glucose 118 H (74-99) mg/dL POC Glucose (mg/dL) 108 H (75-99) mg/dL Assessment and Plan (1) Cholecystitis Narrative/Plan: 81-year-old male status post open cholecystectomy for purulent cholecystitis - Surgically progressing, incision healing well, XAVI drain with serosanguineous output - Continue medical and ICU care Current Visit: Yes Status: Acute Code(s): K81.9 - CHOLECYSTITIS, UNSPECIFIED SNOMED Code(s): 25793015
[2017-08-11] MEDS: FAMOTIDINE 20 MG TAB PO SCH ×2 (10:41→21:12)
[2017-08-11] MEDS: LISINOPRIL 5 MG TAB OG-TUBE SCH (10:41)
[2017-08-11] MEDS: SPIRONOLACTONE 25 MG TAB PO SCH (10:41)
[2017-08-11] MEDS: METOPROLOL TARTRATE 50 MG TAB PO SCH ×2 (10:41→21:12)
[2017-08-11] MEDS: ASPIRIN 81 MG PO SCH (10:41)
[2017-08-11] MEDS: AMIODARONE 200 MG TAB PO SCH ×2 (10:41→21:12)
[2017-08-11] MEDS: ENOXAPARIN 40 MG/0.4 ML SYRINGE SQ SCH (10:41)
[2017-08-11 11:46] LABS: Glucose,Whole Blood 148 mg/dL (75-99)
--- NOTE | 2017-08-11 12:23 | PN ---
PROGRESS NOTE DATE OF SERVICE: 08/11/2017 Patient is an 81-year-old pleasant white male admitted to the hospital with acute cholecystitis, status post gallbladder surgery followed by postoperative bile leak. The patient has a XAVI drain in place. In the last 24 hours, XAVI drainage has been serosanguineous and has significantly improved and he only had 70 mL of drainage. In the meantime during this hospitalization, he developed an acute ischemic stroke with right-sided weakness and Neurology is following the patient closely. This morning, he denies any symptoms. PHYSICAL EXAMINATION: On physical examination, he appears comfortable. No apparent distress. Vital signs are stable. Blood pressure is 170/87, pulse rate 96, temperature 98. HEENT EXAMINATION: Unremarkable. Conjunctivae pink. Sclerae anicteric. Oral cavity no lesions. NECK: No JVD or lymph node enlargement. Chest was clear to auscultation. HEART: Regular rate and rhythm. ABDOMEN: Soft. XAVI drain in place. There was about 20 mL of serosanguineous fluid noted, but abdomen was soft. EXTREMITIES: No pedal edema. SKIN: No rashes. NEURO: He is awake. LABS: Labs from today, CBC with differential count is within normal limits and basic metabolic panel is also within normal limits. IMPRESSION: 1. Patient with acute cholecystitis, status post gallbladder surgery 4 days ago followed by postoperative bile leak. Status post XAVI drainage catheter in place and the drainage has been gradually improving over the last 4 days. In the last 24 hours, it was only 70 mL and was serosanguineous and no obvious bile seen, most likely bile leak has spontaneously resolved. 2. Acute ischemic stroke with right-sided weakness, being monitored closely in the intensive care unit. RECOMMENDATIONS: Since the bile leak is gradually improving, there is no indication to proceed with an ERCP at the present time. We will sign off. Please call us if needed. Thank you for this consultation. MMODL / IJN: [id number] /
--- NOTE | 2017-08-11 15:46 | P.PN ---
Subjective Progress Note Date: 08/11/17 Principal diagnosis: Acute cholecystitis, sepsis, nonsustained V. tach This patient is extubated yesterday. He seemed to be alert but slow in responding to questions. He does identify is and son accurately. He doesn 't seem to be in acute distress. He is maintaining sinus rhythm but having episodes of nonsustained ventricular tachycardia. Patient is status post cholecystectomy. Patient has been having some biliary drainage. So, it is felt that patient may need ERCP. Patient is on amiodarone, but still having the nonsustained V. tach. I'm going to add Mexitil 150 mg by mouth twice a day. Patient is being transferred to telemetry unit. Patient still has evidence of right-sided weakness. Overall prognosis is still guarded 08/10/2017: Patient is alert and following commands though is swollen mentation. He still has right-sided weakness. Doesn't appear to be in acute distress. He is in atrial fibrillation. Rate is controlled. Blood pressure is better controlled. No ventricular tachycardia arrhythmias. Patient is on amiodarone and Mexitil. Patient will continue current medical therapy. Patient is waiting to go to telemetry unit. Physical therapy and speech therapy. Swallowing probably she is being done. Prognosis is still guarded. July,: This patient is alert. Seemed to be less communicative. Not following commands. Maintaining sinus rhythm. No evidence of any nonsustained V. tach. Still has weakness on the right side. From Cardec standpoint we'll continue combination of the amiodarone and Mexitil. Prognosis is guarded Objective - Vital Signs Vital signs: Vital Signs Temp 98.7 F 08/11/17 12:00 Pulse 74 08/11/17 15:21 Resp 24 08/11/17 12:00 BP 134/77 08/11/17 12:00 Pulse Ox 99 08/11/17 12:00 Intake & Output 08/10/17 08/11/17 08/11/17 18:59 06:59 18:59 Intake Total 300 750 340 Output Total 1530 1395 710 Balance -1230 -645 -370 Weight 104.5 kg Intake: IV 180 750 340 0.9 at KVO 30 100 40 Ampicillin-Sulbactam 3 gm 100 In Sodium Chloride 0.9% 100 ml @ 100 mls/hr IVPB Q6HR [facility] Rx#:[id number] D5-0.45% NaCl with KCl 150 550 300 20Meq/l 1,000 ml @ 50 mls /hr IV .Q20H [facility] Rx#: [id number] Oral 120 Output: Drainage 30 40 20 Right Lower Lateral 30 40 20 Abdomen Urine 1500 1355 690 Other: Voiding Method Indwelling Catheter Indwelling Catheter Indwelling Catheter # Bowel Movements 1 1 ABP, PAP, CO, CI - Last Documented Arterial Blood Pressure 158/76 - Exam GENERAL EXAM: Patient is alert but not communicative. HEENT: Normal NECK: No masses, no nuchal rigidity. CHEST: No chest wall deformity. LUNGS: Diminished breath sounds at the bases HEART: S1 and S2 normal with no audible mumurs or gallops. ABDOMEN: Postsurgical SKIN: No rashes CENTRAL NERVOUS SYSTEM: Seems to be patient is able to move the right arm EXTREMITIES: No cyanosis, clubbing or edema. - Labs CBC & Chem 7: 08/11/17 04:57 08/11/17 04:57 Labs: Abnormal Lab Results - Last 24 Hours (Table) 08/10/17 08/11/17 08/11/17 Range/Units 19:00 00:15 04:57 RBC 3.72 L (4.30-5.90) m/uL Hgb 12.2 L (13.0-17.5) gm/dL Hct 37.3 L (39.0-53.0) % MCV 100.3 H (80.0-100.0) fL Glucose (74-99) mg/dL POC Glucose (mg/dL) 115 H 116 H (75-99) mg/dL 08/11/17 08/11/17 08/11/17 Range/Units 04:57 06:20 11:45 RBC (4.30-5.90) m/uL Hgb (13.0-17.5) gm/dL Hct (39.0-53.0) % MCV (80.0-100.0) fL Glucose 118 H (74-99) mg/dL POC Glucose (mg/dL) 108 H 148 H (75-99) mg/dL Assessment and Plan (1) Nonsustained ventricular tachycardia Current Visit: Yes Status: Acute Code(s): I47.2 - VENTRICULAR TACHYCARDIA SNOMED Code(s): 921095572 (2) Cholecystitis Current Visit: Yes Status: Acute Code(s): K81.9 - CHOLECYSTITIS, UNSPECIFIED SNOMED Code(s): 89913208 (3) Coronary artery disease Current Visit: Yes Status: Acute Code(s): I25.10 - ATHSCL HEART DISEASE OF [place] CORONARY ARTERY W/O ANG PCTRS SNOMED Code(s): 53256526 (4) Systolic heart failure Current Visit: Yes Status: Acute Code(s): I50.20 - UNSPECIFIED SYSTOLIC ( CONGESTIVE) HEART FAILURE SNOMED Code(s): 918434289 (5) Cardiomyopathy Current Visit: Yes Status: Acute Code(s): I42.9 - CARDIOMYOPATHY, UNSPECIFIED SNOMED Code(s): 62620062 (6) CVA (cerebral vascular accident) Current Visit: Yes Status: Acute Code(s): I63.9 - CEREBRAL INFARCTION, UNSPECIFIED SNOMED Code(s): 094679914 Plan: Patient is in sinus rhythm and maintaining without any significant arrhythmias. No sustained V. tach. Neurologically patient didn't show much improvement. Continue current medical therapy. Prognosis is guarded
[2017-08-11 17:16] LABS: Glucose,Whole Blood 144 mg/dL (75-99)
[2017-08-11] MEDS: CYANOCOBALAMIN-FA-PYRIDOXINE 1 EACH TAB PO SCH (17:18)
--- NOTE | 2017-08-11 18:32 | P.PN ---
Subjective Progress Note Date: 08/11/17 Principal diagnosis: TIA/acute CVA, altered mental status, generalized weakness and medical debility , Uncontrolled malignant hypertension, right hemiparesis, Acute cholecystitis, empyema gallbladder Gram-negative sepsis and bacteremia, severe degree of ischemic cardiomyopathy with ejection fraction of 35%, acute on chronic systolic heart failure, coronary artery disease, 08/11/2017, patient seen eval reexamined during the rounds clinically overall not much change is still weak right upper extremity, from [place] standpoint doing well breathing comfortably on supplemental oxygen hemodynamic status stable but continued intermittent runs of PVCs patient is on oral amiodarone's well is on broad-spectrum antibiotics labs reviewed medications reviewed, patient has been tolerating by mouth with nutritional status remains compromised , remains extremely weak not ready for transfer out of ICU 08/10/2017, patient seen eval reexamined during the rounds clinically patient has been doing relatively better in terms of the eye contact intermittently following commands but remains very confused patient has the intermittent weakness now the right upper extremity is more weaker, MRI couldn't be performed due to presence of clip, labs reviewed medications reviewed today's chest x-ray reviewed as well, patient has been tolerating modified diet fairly well 08/09/2017, patient seen eval reexamined during the rounds he is successfully extubated is slightly more awake and alert he is moving his all 4 extremity is still weaker on the right side though, patient is being followed by general surgery and GI as well output is improved through the XAVI, patient has been tolerating by mouth modified diet labs reviewed medications reviewed radiographic studies reviewed as well, request PT OT to evaluate, x-ray not performed today, labs reviewed, patient is for MRI of the brain later on today due to runs of ventricular tachycardia has been started on amiodarone and is still on IV amiodarone MRI to be performed once patient comes off of the amiodarone drip. 08/08/2017, patient seen eval examined during the rounds he is been off of respirator for over 24 hours breathing comfortably he is on supplemental oxygen he is been intermittently moving his right upper extremity mostly awake but has intermittent episodes of confusion family is present at bedside, patient able to swallow applesauce with pills, chest x-ray laboratory data reviewed small bilateral pleural effusion likely related to intra-abdominal processes as well as baseline cardiomyopathy 08/07/2017, patient seen eval examined during the rounds he has been on SIMV rate of 8 breathing about 16-18, FiO2 is down to 40%, patient has been placed on CPAP 5 pressure support of 5 on which she was monitor observe for over an hour and arterial blood gases reviewed weaning parameters reviewed as well patient is a 50 more awake and makes her better eye contact some movement 1/5 in right upper extremity has been noted, chest x-ray reviewed laboratory data reviewed as well care plan discussed with the primary service and nursing staff at length and family present at bedside patient was switched to CPAP 5 pressure support of 5 and spontaneous tidal volume were and 500 range with respiratory rate and high teens to low 20s no obvious respirator distress presents slight elevation in blood pressure was however noted likely related to stress of weaning, overall blood pressure is very well controlled with current intervention, patient required 2 doses of morphine overnight otherwise remains off of sedation, as per recommendation of GI services patient will probably require ERCP once extubated 08/06/2017, patient seen eval examined during the rounds patient has been taking off of sedation has been off of propofol for over an hour however noted to have slow rise in blood pressure Coreg dose has been escalated to double the dose patient is awake with a blank stare has been moving left upper and lower extremity fairly well some movement and right lower extremity is present but cannot move right upper extremity, patient has been placed on CPAP of 5 and pressure support of 5 which she tolerated fairly well but still arterial blood gases suggestive of significant hypoxemia, chest x-ray reviewed right lower lobe pneumonia improved with a small pleural effusion, laboratory data reviewed as well care plan discussed with surgical services nursing staff and patient's at length critical care time spent 45 minutes 08/05/2017, patient seen eval reexamined during the rounds currently patient remains on full ventilator support with the assist control mode sed rate is 18 breathing 18, tidal volume is 550, 8 of PEEP, FiO2 is down to 40% patient remains on propofol drip which is gradually being titrated down as per plans for sedation holiday, labs reviewed medications reviewed care plan discussed with the surgical services patient is to be started on tube feed as per their recommendation, telemetry revealed presence of intermittent episodes of the nonsustained ventricular tachycardia as well as multiple PVCs patient has been on beta blockers and calcium channel blockers which were discontinued due to severe hypotension as blood pressure has been stabilized now and going up towards we'll resume those medications likely they will help those PVCs as well. We will defer cardiovascular services for initiation or maintenance of amiodarone. Patient is making adequate urine, chest x-ray laboratory data and medications reviewed noted repeat blood cultures have been negative so far ROM of white cell count is normalize arterial blood gases are adequate chest x-ray reviewed note is made of the NG tube improve aeration noted bilateral bases 08/04/2017, patient seen eval examined during the rounds patient remains sedated with propofol drip attempts to wean oxygen down has been unsuccessful overnight however able to bring down the oxygen to 40% from 50% PEEP has been lowered from 10-8, patient is now taken off a few fed drip ventilator setting is stable but the patient continued to manifest respiratory acidosis vent setting include assist control rate of 18 and tidal volume of 500 PEEP of 1060% oxygen respiratory rate is 12 he is calm arousable opens eyes follow simple commands family is present at the bedside care plan discussed with the family at length in light of severe degree of ischemic cardiomyopathy and very low ejection fraction patient will be kept on respirator for another 24-48 hours and slowly will be weaned, propofol is 15 mics, patient is getting Accu-Cheks with relatively stable sugars, currently patient is on D5 half normal saline 20 K meq of KCl with 100 mL an hour. Chest x-ray from this morning reviewed basal atelectasis and right-sided effusion and right lower lobe consolidation is seen , operative findings reviewed empyema gallbladder noted with severe acute cholecystitis culture reviewed my E. coli is sensitive to Unasyn 01/2018, patient seen and evaluated examined in the ICU this patient has been admitted into the hospital with generalized weakness syncope intermittent runs of V. tach with baseline history of severe degree of cardiomyopathy ischemic in nature with ejection fraction just 30-35% patient has a patchy infiltrate on the right side is being treated for pneumonia and sepsis, around 9 PM patient had episode of increasing shortness of breath increases abdominal pain a computed tomography scan of the abdominal and pelvis revealed presence of cholecystitis, general surgery has been consulted patient continued to increase respiratory distress eventually brought into the ICU where he was intubated patient was initially hypertensive however postintubation has episode of hypertension and earlier this morning required fluid resuscitation he did receive Lasix with some urine output yesterday currently Lasix is being held at it appears that patient is somewhat volume depleted culture results and reports are reviewed patient is growing gram-negative rods in the blood likely source being ascending cholangitis versus urinary tract infection with first being more likely urine culture however is pending urinalysis suggestive of inflammatory processes though. His ventilator settings reviewed currently patient is on assist control rate of 18 breathing 22 he is on tidal volume of 500, PEEP is 10 and FiO2 was initially 100% and gradually titrated down to 60% his lactic acid level was mildly elevated pro calcitonin was elevated to, currently patient is on amiodarone map is around 65-70 he is also on propofol 15 mics normal saline KVO amiodarone drip as 0.5 mg/m, patient is well sedated with current ventilator setting and sedation and also being treated with broad- spectrum antibiotics with IV Zosyn his medications are reviewed given that hypertension is present antihypertensive agents are being held, patient will need IV axis but triple-lumen catheter as well as and A-line consent are being obtained 81-year-old male with history of ischemic cardiomyopathy ejection fraction of 30 -35% has not been feeling well for the last 2-3 week with increasing shortness of breath patient does have a history of chronic lower extremity edema with a history of coronary artery disease status post CABG back in 1995. Patient for the last 2 weeks has not been feeling well has been more short of breath than usual has dry nonproductive cough as well which is intermittent off and on due to progressive increasing shortness of breath lately has been feeling weak as well with some intermittent episodes of dizziness lightheadedness patient came into the emergency department he did spike a fever up to 102, over his white cell count were normal chest x-ray showed borderline cardiomegaly and some early infiltrate in the right midlung field cannot be excluded. Patient about 2 weeks ago had a recent fall however he never lost his consciousness no seizure -like activity was seen patient appears to have developed nondisplaced left 10th rib fracture as seen on the rib x-rays. On arrival patient appeared to be in acute exacerbation of CHF likely acute on chronic systolic heart failure with elevated BNP of over 1800, in addition to above patient had echocardiogram which revealed ejection fraction 30% with inferior basal hypokinesia, patient also noted to have intermittent runs of PVCs and has been placed on IV amiodarone, this requestioning patient denies any chest pain or radiation of pain denies any sputum production denies any night sweats fever or chills he denies any seizure-like activity he did have intermittent dizziness usually turning around. He denies any bowel or bladder dysfunction he has chronic lower extremity trace edema. Objective - Vital Signs Vital signs: Vital Signs Temp 98.7 F 08/11/17 12:00 Pulse 74 08/11/17 15:21 Resp 24 08/11/17 12:00 BP 134/77 08/11/17 12:00 Pulse Ox 99 08/11/17 12:00 Intake & Output 08/10/17 08/11/17 08/11/17 18:59 06:59 18:59 Intake Total 300 750 340 Output Total 1530 1395 710 Balance -1230 -645 -370 Weight 104.5 kg Intake: IV 180 750 340 0.9 at KVO 30 100 40 Ampicillin-Sulbactam 3 gm 100 In Sodium Chloride 0.9% 100 ml @ 100 mls/hr IVPB Q6HR [facility] Rx#:[id number] D5-0.45% NaCl with KCl 150 550 300 20Meq/l 1,000 ml @ 50 mls /hr IV .Q20H [facility]NA Rx#: [id number] Oral 120 Output: Drainage 30 40 20 Right Lower Lateral 30 40 20 Abdomen Urine 1500 1355 690 Other: Voiding Method Indwelling Catheter Indwelling Catheter Indwelling Catheter # Bowel Movements 1 1 ABP, PAP, CO, CI - Last Documented Arterial Blood Pressure 158/76 - Exam - Constitutional General appearance: average body habitus, awake and opens eyes follow simple commands- EENT Eyes: EOMI, PERRLA, normal appearance ENT: hard of hearing Ears: bilateral: normal - Neck Neck: normal ROM Carotids: right: bruit absent, bilateral: upstroke normal Thyroid: bilateral: normal size - Respiratory Respiratory: bilateral: CTA, few basal crackles bilaterally are present - Cardiovascular Heart sounds: normal: S1 and S2 no gallop rub or murmur - Gastrointestinal General gastrointestinal: Normal to hypoactive bowel sounds, soft - Integumentary Integumentary: normal, normal turgor - Neurologic More awake follows simple commands intermittently moving all 4 extremity was noted to have more strength in right upper extremity previously however lately he is not moving it- Musculoskeletal Musculoskeletal: Well developed, week right upper extremity - Psychiatric Psychiatric: Unable to assess - Labs CBC & Chem 7: 08/11/17 04:57 08/11/17 04:57 Labs: Abnormal Lab Results - Last 24 Hours (Table) 05/18/18 05/19/18 05/19/18 Range/Units 19:00 00:15 04:57 RBC 3.72 L (4.30-5.90) m/uL Hgb 12.2 L (13.0-17.5) gm/dL Hct 37.3 L (39.0-53.0) % MCV 100.3 H (80.0-100.0) fL Glucose (74-99) mg/dL POC Glucose (mg/dL) 115 H 116 H (75-99) mg/dL 08/11/17 08/11/17 08/11/17 Range/Units 04:57 06:20 11:45 RBC (4.30-5.90) m/uL Hgb (13.0-17.5) gm/dL Hct (39.0-53.0) % MCV (80.0-100.0) fL Glucose 118 H (74-99) mg/dL POC Glucose (mg/dL) 108 H 148 H (75-99) mg/dL 08/11/17 Range/Units 17:14 RBC (4.30-5.90) m/uL Hgb (13.0-17.5) gm/dL Hct (39.0-53.0) % MCV (80.0-100.0) fL Glucose (74-99) mg/dL POC Glucose (mg/dL) 144 H (75-99) mg/dL Assessment and Plan Assessment: Right upper extremity weakness evaluated for left hemispheric stroke likely TIA , patient appears to be recovering with 2 negative computed tomography scan of the head, MRI of the brain cannot be performed due to presence of clips at cholecystectomy site Uncontrolled malignant hypertension, relatively better under contro Intermittent runs of nonsustained ventricular tachycardia and multiple PVCs with stable electrolytes likely related to ischemic cardiomyopathy, on IV amiodarone Severe sepsis and septic shock related to gram-negative bacteremia related to empyema bladder Empyema gallbladder Acute cholangitis and gram-negative bacteremia Acute cholecystitis Early developing pneumonia in right lower lobe with effusion Acute hypoxic and hypercapnic respirator failure multifactorial related to above Spiking fever may be related to above however will follow up on urine culture results and report Acute exacerbation of CHF likely acute on chronic systolic heart failure with ejection fraction of 30-35% Status post fall with left 10th rib fracture Coronary artery disease and ischemic cardiomyopathy Intermittent episodes of PVCs and arrhythmia, patient is on amiodarone currently History of BPH Dyslipidemia hypertension hypertensive cardiovascular disease Plan: Continue physical therapy and supportive care Improved nutritional status as tolerated Continue Coreg continue to hold Norvasc, continue labetalol 20 mg IV every 4 when necessary and along with hydralazine Ammann continue oral amiodarone monitor labs closely Computed tomography scan of the head without contrast results and reports reviewed, MRI pending for now as due to presence of clip in the gallbladder area post surgery cannot be performed Reviewed neurology recommendations Patient is spontaneously breathing with adequate oxygenation Observe off of vasopressors Medicine adjusted Continued DVT and peptic ulcer disease prophylaxis Electrolyte replacement as tolerated Surgical consultation recommendations reviewed Broad-spectrum antibiotics Breathing treatment Follow-up on urine and blood culture results and report Optimize cardiovascular therapy Repeat labs and x-ray tomorrow Physical therapy increase activity as tolerated Plans for ERCP on hold for now PTOT evaluation increase activity as tolerated keep patient in ICU for now Discussed with surgical services, nursing staff, patient's at length Time with Patient: Greater than 30
[2017-08-11] MEDS: ALLOPURINOL 300 MG TAB PO SCH (21:12)
[2017-08-11] MEDS: amLODIPine 5 MG TAB PO SCH (21:12)
[2017-08-11] MEDS: ARTIFICIAL TEARS-HYPROMELLOSE DROPS 15 ML BTL BOTH EYES PRN (21:12)
[2017-08-12 00:23] LABS: Glucose,Whole Blood 112 mg/dL (75-99)
[2017-08-12] MEDS: AMPICILLIN-SULBACTAM 3 GM in SODIUM CHLORIDE 0.9% 100 ML IVPB SCH ×5 (00:26→23:39)
[2017-08-12] MEDS: METOCLOPRAMIDE 5 MG/ML 2 ML VIAL IVP SCH ×5 (00:26→23:39)
[2017-08-12] MEDS: MEXILETINE 150 MG CAP PO SCH ×4 (00:26→21:10)
[2017-08-12] MEDS: D5-0.45% NACL WITH KCL 20MEQ/L 1,000 ML IV SCH (00:27)
[2017-08-12] MEDS: INSULIN ASPART 100 UNIT/ML 1 ML 10 ML VIAL SQ SCH ×5 (00:27→23:41)
[2017-08-12 05:59] LABS: Glucose,Whole Blood 112 mg/dL (75-99)
[2017-08-12 06:55] LABS: HCT 39.2 % (39.0-53.0); HGB 12.4 gm/dL (13.0-17.5); MCH 32.1 pg (25.0-35.0); MCHC 31.8 g/dL (31.0-37.0); MCV 101.1 fL (80.0-100.0); Macrocytosis Slight; Mean Platelet Volume 7.8; Platelet Count 295 k/uL (150-450); RBC 3.87 m/uL (4.30-5.90); RDW 13.8 % (11.5-15.5); WBC 8.6 k/uL (3.8-10.6)
[2017-08-12 07:27] LABS: Anion Gap 11 mmol/L; Blood Urea Nitrogen 15 mg/dL (9-20); Carbon Dioxide 24 mmol/L (22-30); Chloride 103 mmol/L (98-107); Glucose 115 mg/dL (74-99); Magnesium 2.1 mg/dL (1.6-2.3); Phosphorus 3.8 mg/dL (2.5-4.5); Potassium 4.5 mmol/L (3.5-5.1); Sodium 138 mmol/L (137-145)
--- NOTE | 2017-08-12 07:53 | XR ---
EXAMINATION TYPE: XR chest 1V portable DATE OF EXAM: 08/12/2017 COMPARISON: Prior chest x-ray 08/10/2017 HISTORY: Shortness of breath TECHNIQUE: Single frontal view of the chest is obtained. FINDINGS: Right jugular central venous catheter is stable, patient is post median sternotomy. Heart remains enlarged. No evident pneumothorax or pleural effusion. Interstitium may be mildly increased. Central vascularity not significantly changed. Some minimal patchy basilar density suspected. IMPRESSION: Cardiomegaly, minimal basilar atelectasis.
[2017-08-12] MEDS: SYMBICORT 160-4.5 MCG INHALER INHALATION SCH ×2 (08:00→20:40)
[2017-08-12] MEDS: IPRATROPIUM-ALBUTEROL 3 ML NEB INHALATION SCH ×4 (08:00→20:25)
--- NOTE | 2017-08-12 08:47 | P.PN ---
Subjective Progress Note Date: 08/12/17 Principal diagnosis: Acute cholecystitis, sepsis, nonsustained V. tach This patient is extubated yesterday. He seemed to be alert but slow in responding to questions. He does identify is and son accurately. He doesn 't seem to be in acute distress. He is maintaining sinus rhythm but having episodes of nonsustained ventricular tachycardia. Patient is status post cholecystectomy. Patient has been having some biliary drainage. So, it is felt that patient may need ERCP. Patient is on amiodarone, but still having the nonsustained V. tach. I'm going to add Mexitil 150 mg by mouth twice a day. Patient is being transferred to telemetry unit. Patient still has evidence of right-sided weakness. Overall prognosis is still guarded 08/10/2017: Patient is alert and following commands though is swollen mentation. He still has right-sided weakness. Doesn't appear to be in acute distress. He is in atrial fibrillation. Rate is controlled. Blood pressure is better controlled. No ventricular tachycardia arrhythmias. Patient is on amiodarone and Mexitil. Patient will continue current medical therapy. Patient is waiting to go to telemetry unit. Physical therapy and speech therapy. Swallowing probably she is being done. Prognosis is still guarded. July,: This patient is alert. Seemed to be less communicative. Not following commands. Maintaining sinus rhythm. No evidence of any nonsustained V. tach. Still has weakness on the right side. From [facility] standpoint we'll continue combination of the amiodarone and Mexitil. Prognosis is guarded. 08/12/2017: Patient is awake and alert. Following commands. Unable to move the right arm. Maintaining sinus rhythm. Blood pressures in the range of 1:30 to 140 systolic. Patient is able to eat. No nonsustained arrhythmias noted. Patient may be moved out of the intensive care unit. Physical therapy. We'll continue with amiodarone and Mexitil combination. No consideration for AICD at this time Objective - Vital Signs Vital signs: Vital Signs Temp 98.1 F 08/12/17 05:00 Pulse 88 08/12/17 08:16 Resp 25 H 08/12/17 07:00 BP 150/83 08/12/17 07:00 Pulse Ox 99 08/12/17 07:00 Intake & Output 08/11/17 08/12/17 08/12/17 18:59 06:59 18:59 Intake Total 850 900 60 Output Total 1130 1840 150 Balance -280 -940 -90 Weight 103 kg Intake: IV 790 900 60 0.9 at KVO 90 100 10 Ampicillin-Sulbactam 3 gm 100 200 In Sodium Chloride 0.9% 100 ml @ 100 mls/hr IVPB Q6HR [facility] Rx#:[id number] D5-0.45% NaCl with KCl 600 600 50 20Meq/l 1,000 ml @ 50 mls /hr IV .Q20H [facility] Rx#: [id number] Oral 60 Output: Drainage 20 25 Right Lower Lateral 20 25 Abdomen Urine 1110 1815 150 Other: Voiding Method Indwelling Catheter Indwelling Catheter ABP, PAP, CO, CI - Last Documented Arterial Blood Pressure 158/76 - Labs CBC & Chem 7: 08/12/17 06:39 08/12/17 06:39 Labs: Abnormal Lab Results - Last 24 Hours (Table) 08/11/17 08/11/17 08/12/17 Range/Units 11:45 17:14 00:21 RBC (4.30-5.90) m/uL Hgb (13.0-17.5) gm/dL MCV (80.0-100.0) fL Glucose (74-99) mg/dL POC Glucose (mg/dL) 148 H 144 H 112 H (75-99) mg/dL 08/12/17 08/12/17 08/12/17 Range/Units 05:57 06:39 06:39 RBC 3.87 L (4.30-5.90) m/uL Hgb 12.4 L (13.0-17.5) gm/dL MCV 101.1 H (80.0-100.0) fL Glucose 115 H (74-99) mg/dL POC Glucose (mg/dL) 112 H (75-99) mg/dL Assessment and Plan (1) Nonsustained ventricular tachycardia Current Visit: Yes Status: Acute Code(s): I47.2 - VENTRICULAR TACHYCARDIA SNOMED Code(s): 825379316 (2) Cholecystitis Current Visit: Yes Status: Acute Code(s): K81.9 - CHOLECYSTITIS, UNSPECIFIED SNOMED Code(s): 45966109 (3) Coronary artery disease Current Visit: Yes Status: Acute Code(s): I25.10 - ATHSCL HEART DISEASE OF [place] CORONARY ARTERY W/O ANG PCTRS SNOMED Code(s): 73414688 (4) Systolic heart failure Current Visit: Yes Status: Acute Code(s): I50.20 - UNSPECIFIED SYSTOLIC ( CONGESTIVE) HEART FAILURE SNOMED Code(s): 250036426 (5) Cardiomyopathy Current Visit: Yes Status: Acute Code(s): I42.9 - CARDIOMYOPATHY, UNSPECIFIED SNOMED Code(s): 21055123 (6) CVA (cerebral vascular accident) Current Visit: Yes Status: Acute Code(s): I63.9 - CEREBRAL INFARCTION, UNSPECIFIED SNOMED Code(s): 271894146 Plan: Patient is critically stable. Continue current medical therapy. Transfer to telemetry unit. Increase physical activity. Speech and physical therapy. Continue amiodarone and Mexitil
[2017-08-12] MEDS: AMIODARONE 200 MG TAB PO SCH ×2 (08:51→21:09)
[2017-08-12] MEDS: SPIRONOLACTONE 25 MG TAB PO SCH (08:52)
[2017-08-12] MEDS: ASPIRIN 81 MG PO SCH (08:52)
[2017-08-12] MEDS: METOPROLOL TARTRATE 50 MG TAB PO SCH ×2 (08:52→21:09)
[2017-08-12] MEDS: FAMOTIDINE 20 MG TAB PO SCH ×2 (08:52→21:09)
[2017-08-12] MEDS: ENOXAPARIN 40 MG/0.4 ML SYRINGE SQ SCH (08:52)
[2017-08-12] MEDS: LISINOPRIL 5 MG TAB OG-TUBE SCH (08:52)
--- NOTE | 2017-08-12 10:18 | P.PN ---
Subjective Progress Note Date: 08/12/17 Patient seen and examined at bedside. Answering questions appropriately. Not moving right arm. Denies abdominal pain. Tolerating diet. Denies nausea and vomiting. Objective - Vital Signs Vital signs: Vital Signs Temp 97.7 F 08/12/17 08:00 Pulse 90 08/12/17 09:00 Resp 24 08/12/17 09:00 BP 140/77 08/12/17 09:00 Pulse Ox 98 08/12/17 09:00 Intake & Output 08/11/17 08/12/17 08/12/17 18:59 06:59 18:59 Intake Total 850 900 180 Output Total 1130 1840 400 Balance -280 -940 -220 Weight 103 kg Intake: IV 790 900 180 0.9 at KVO 90 100 30 Ampicillin-Sulbactam 3 gm 100 200 In Sodium Chloride 0.9% 100 ml @ 100 mls/hr IVPB Q6HR [facility] Rx#:[id number] D5-0.45% NaCl with KCl 600 600 150 20Meq/l 1,000 ml @ 50 mls /hr IV .Q20H [facility] Rx#: [id number] Oral 60 Output: Drainage 20 25 Right Lower Lateral 20 25 Abdomen Urine 1110 1815 400 Other: Voiding Method Indwelling Catheter Indwelling Catheter ABP, PAP, CO, CI - Last Documented Arterial Blood Pressure 158/76 - Constitutional General appearance: Present: cooperative - EENT ENT: Present: hard of hearing - Respiratory Details: No difficulty with respiration - Gastrointestinal Gastrointestinal Comment(s): Soft, appropriate tenderness, nondistended, no rebound, no guarding, incision site with barbara intact and healing well, XAVI drain in place with serosanguineous output - Musculoskeletal Musculoskeletal: Present: generalized weakness - Labs CBC & Chem 7: 08/12/17 06:39 08/12/17 06:39 Labs: Abnormal Lab Results - Last 24 Hours (Table) 08/11/17 08/11/17 08/12/17 Range/Units 11:45 17:14 00:21 RBC (4.30-5.90) m/uL Hgb (13.0-17.5) gm/dL MCV (80.0-100.0) fL Glucose (74-99) mg/dL POC Glucose (mg/dL) 148 H 144 H 112 H (75-99) mg/dL 08/12/17 08/12/17 08/12/17 Range/Units 05:57 06:39 06:39 RBC 3.87 L (4.30-5.90) m/uL Hgb 12.4 L (13.0-17.5) gm/dL MCV 101.1 H (80.0-100.0) fL Glucose 115 H (74-99) mg/dL POC Glucose (mg/dL) 112 H (75-99) mg/dL Assessment and Plan (1) Cholecystitis Narrative/Plan: 81-year-old male status post open cholecystectomy for purulent cholecystitis - Surgically progressing, incision healing well, XAVI drain with serosanguineous output - Stable to be moved from intensive care unit per surgery, this decision per ICU - Continue medical and ICU care Current Visit: Yes Status: Acute Code(s): K81.9 - CHOLECYSTITIS, UNSPECIFIED SNOMED Code(s): 46270304
[2017-08-12 12:18] LABS: Glucose,Whole Blood 123 mg/dL (75-99)
[2017-08-12] MEDS: CYANOCOBALAMIN-FA-PYRIDOXINE 1 EACH TAB PO SCH (13:32)
[2017-08-12 18:42] LABS: Glucose,Whole Blood 117 mg/dL (75-99)
[2017-08-12] MEDS: ALLOPURINOL 300 MG TAB PO SCH (21:09)
[2017-08-12] MEDS: amLODIPine 5 MG TAB PO SCH (21:09)
--- NOTE | 2017-08-12 22:21 | P.PN ---
Subjective Progress Note Date: 08/11/17 Principal diagnosis: Acute CHF, acute cholecystitis, acute CVA with right-sided weakness this is a pleasant 81 yo M admitted with acute sepsis and acute resp failure , was intubated and s/p extubation today 08/07/17. is following the pt closely , ID has been consulted, the pt also was suspicious for weakness of his right upper ext and neurology has been consulted for possible stroke 08/07/17 today pt was extubated when I saw the pt he could open his eyes spontaneously , and follow command , he was not moving his right upper ext and it was in splint , pt could not provide history as he was just extubated , whoever he was noticed to breath comfortabley and not in resp distress 08/08/2017 Patient is a breathing comfortably, he opens his eyes spontaneously he doesn't follow commands as clearly sometimes suite after being the orders and he doesn' t follow all the comments, as per staff his mental status fluctuates, little bit movement in his right upper extremity as per staff, there is less drainage from his due to from 400+ yesterday to 160 mL today 08/11/2017 Patient is lying in the bed comfortable. Otherwise patient is awake alert but could not able to communicate. Patient has been afebrile. Saturating well on nasal cannula. Patient was started on amiodarone and also on antibiotics in the form of Unasyn. Patient is status post cholecystectomy. XAVI drain is in place. Patient had generalized weakness and right upper in the weakness is improving. Patient is being continued on PT OT. MRI of the brain could not be done due to surgical stables. Otherwise patient has a febrile. Able to nod his abdomen but could not able to speak. Patient was able to finish only 20% of the meal. Complete review of systems could not be obtained from the patient. Active Medications Generic Name Dose Route Start Last Admin Trade Name Freq PRN Reason Stop Dose Admin Acetaminophen 650 mg 08/02/17 01:09 Tylenol Tab PO Q6HR PRN Fever and/ or Pain Acetaminophen 650 mg 08/02/17 22:27 Tylenol Suppository RECTAL Q4HR PRN Fever and/or Mild Pain Albuterol/Ipratropium 3 ml 08/02/17 08:00 08/12/17 20:25 Duoneb 0.5 Mg-3 Mg/3 Ml Soln INHALATION 3 ml RT-QID [facility]NA Administration Allopurinol 300 mg 08/02/17 21:00 08/12/17 21:09 Zyloprim PO 300 mg HS BRENNA Administration Amiodarone HCl 400 mg 08/10/17 21:00 08/12/17 21:09 Cordarone PO 400 mg BID BRENNA Administration Amlodipine Besylate 5 mg 08/07/17 21:00 08/12/17 21:09 Norvasc PO 5 mg HS BRENNA Administration Artificial Tears 1 drops 08/07/17 18:59 08/11/17 21:12 Artificial Tear Drops BOTH EYES 1 drops QID PRN Administration Dry Eye(s) Aspirin 81 mg 08/03/17 09:00 08/12/17 08:52 Aspirin PO 81 mg DAILY [facility]NA Administration Budesonide/Formoterol Fumarate 2 puff 08/02/17 08:00 08/12/17 20:40 Symbicort 160-4.5 Mcg Inhaler INHALATION Not Given RT-BID BRENNA Enoxaparin Sodium 40 mg 08/02/17 09:00 08/12/17 08:52 Lovenox SQ 40 mg DAILY BR[facility]NA Administration Famotidine 20 mg 08/10/17 21:00 08/12/17 21:09 Pepcid PO 20 mg Q12HR [facility]ENNA Administration Folic Acid 1 each 08/08/17 12:00 08/12/17 13:32 Folbic PO 1 each DAILY@1200 [facility]NA Administration Hydralazine HCl 10 mg 08/07/17 14:55 08/09/17 00:21 Apresoline IVP 10 mg Q4HR PRN Administration systolic BP greater than 160 Ampicillin Sodium/Sulbactam 100 mls @ 100 mls/hr 08/04/17 12:15 08/12/17 17: 02 Sodium 3 gm/ Sodium Chloride IVPB 100 mls/hr Q6HR [facility]ENNA Administration Potassium Chloride/Dextrose/Sod Cl 1,000 mls @ 50 mls/hr 08/06/17 12:00 08/12 00:27 D5%-1/2ns-Kcl 20 Meq/L Iv Solution IV 50 mls/hr .Q20H [facility] Administration Insulin Aspart 0 unit 08/04/17 06:00 08/12/17 18:31 Novolog SQ Not Given Q6H [facility] Protocol Labetalol HCl 20 mg 08/06/17 09:22 08/08/17 18:51 Trandate IVP 20 mg Q4H PRN Administration systolic greater than 160 Lisinopril 5 mg 08/06/17 11:00 08/12/17 08:52 Zestril OG-TUBE 5 mg DAILY BRENNA Administration Lorazepam 2 mg 08/02/17 21:55 08/03/17 23:39 Ativan IV 2 mg Q2HR PRN Administration Sedation Metoclopramide HCl 5 mg 08/07/17 12:00 08/12/17 17:02 Reglan IVP 5 mg Q6HR [facility] Administration Metoprolol Tartrate 50 mg 08/10/17 09:00 08/12/17 21:09 Lopressor PO 50 mg BID BRENNA Administration Mexiletine HCl 150 mg 08/10/17 09:00 08/12/17 21:10 Mexitil PO 150 mg TID BRENNA Administration Miscellaneous Information 1 each 08/01/17 23:08 Pneumonia Protocol Utilized PO ONCE PRN Per Protocol Miscellaneous Information 1 each 08/06/17 04:22 Magnesium Per Protocol MISCELLANE DAILY PRN Per Protocol Protocol Morphine Sulfate 2 mg 08/02/17 21:55 08/07/17 07:12 Morphine Sulfate (Inj) IVP 2 mg Q2HR PRN Administration Vent compliance Naloxone HCl 0.2 mg 08/02/17 22:27 Narcan IV Q2M PRN Opioid Reversal Spironolactone 25 mg 08/02/17 11:15 08/12/17 08:52 Aldactone PO 25 mg DAILY BRENNA Administration Objective - Vital Signs Vital signs: Vital Signs Temp 98.7 F 08/11/17 09:00 Pulse 82 08/11/17 11:32 Resp 28 H 08/11/17 11:00 BP 135/76 08/11/17 11:00 Pulse Ox 99 08/11/17 11:00 Intake & Output 08/10/17 08/11/17 08/11/17 18:59 06:59 18:59 Intake Total 300 750 280 Output Total 1530 2415 670 Balance -1230 -645 -390 Weight 104.5 kg Intake: IV 180 750 280 0.9 at KVO 30 100 30 Ampicillin-Sulbactam 3 gm 100 In Sodium Chloride 0.9% 100 ml @ 100 mls/hr IVPB Q6HR [facility] Rx#:[id number] D5-0.45% NaCl with KCl 150 550 250 20Meq/l 1,000 ml @ 50 mls /hr IV .Q20H [facility] Rx#: [id number] Oral 120 Output: Drainage 30 40 20 Right Lower Lateral 30 40 20 Abdomen Urine 1500 1355 650 Other: Voiding Method Indwelling Catheter Indwelling Catheter # Bowel Movements 1 1 ABP, PAP, CO, CI - Last Documented Arterial Blood Pressure 158/76 - Exam General : pt is more awake and able to follow simple commands. Patient is able to nod his head but could not able to speak at this time. HEENT: Head is atraumatic, normocephalic. Pupils equal, round. Neck is supple. There is no elevated jugular venous pressure. HEART EXAMINATION: Heart S1-S2, no murmur is heard CHEST EXAMINATION: Lungs reveal no expiratory wheezes throughout otherwise essentially clear. ABDOMEN: Soft, nontender. Bowel sounds are heard. XAVI Drain in place. No organomegaly noted. EXTREMITIES: 2+ peripheral pulses with no evidence of peripheral edema and no calf tenderness noted. NEUROLOGIC patient is awake, alert and oriented 1-2. Right upper extremity weakness is still present. - Labs CBC & Chem 7: 08/12/17 06:39 08/12/17 06:39 Labs: Abnormal Lab Results - Last 24 Hours (Table) 08/10/17 08/10/17 08/11/17 Range/Units 12:35 19:00 00:15 RBC (4.30-5.90) m/uL Hgb (13.0-17.5) gm/dL Hct (39.0-53.0) % MCV (80.0-100.0) fL Glucose (74-99) mg/dL POC Glucose (mg/dL) 146 H 115 H 116 H (75-99) mg/dL 08/11/17 08/11/17 08/11/17 Range/Units 04:57 04:57 06:20 RBC 3.72 L (4.30-5.90) m/uL Hgb 12.2 L (13.0-17.5) gm/dL Hct 37.3 L (39.0-53.0) % MCV 100.3 H (80.0-100.0) fL Glucose 118 H (74-99) mg/dL POC Glucose (mg/dL) 108 H (75-99) mg/dL 08/11/17 Range/Units 11:45 RBC (4.30-5.90) m/uL Hgb (13.0-17.5) gm/dL Hct (39.0-53.0) % MCV (80.0-100.0) fL Glucose (74-99) mg/dL POC Glucose (mg/dL) 148 H (75-99) mg/dL Assessment and Plan Assessment: -acute delirium possible metabolic encephalopathy - 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 Improving. MRI could not be done due to surgery -acute cholycystis with E.coli s/p laparocopic cholecystectomy -acute resp failure , was on vent , s/p extubation on 08/07/17 -right middle lobe pna -Normocytic anemia -UTI -Chronic CHF with systolic dysfunction EF 35-40% -HTN -HLP -h/o CAD, s/p stent -Generalized weakness Plan: continue with current management , continue with symptomatic treatment , continue with broad spectrum antibiotic , follow closely with surgery , infectious disease, neurology , Neurovascular work up is indicated. prognosis remains guarded giving his multiple complex medical problems and severity. further recommendations to follow . Continue with PT OT. Time with Patient: Greater than 30
--- NOTE | 2017-08-12 22:25 | P.PN ---
Subjective Progress Note Date: 08/12/17 Principal diagnosis: Acute CHF, acute cholecystitis, acute CVA with right-sided weakness this is a pleasant 81 yo M admitted with acute sepsis and acute resp failure , was intubated and s/p extubation today 08/07/17. is following the pt closely , ID has been consulted, the pt also was suspicious for weakness of his right upper ext and neurology has been consulted for possible stroke 08/07/17 today pt was extubated when I saw the pt he could open his eyes spontaneously , and follow command , he was not moving his right upper ext and it was in splint , pt could not provide history as he was just extubated , whoever he was noticed to breath comfortabley and not in resp distress 08/08/2017 Patient is a breathing comfortably, he opens his eyes spontaneously he doesn't follow commands as clearly sometimes suite after being the orders and he doesn' t follow all the comments, as per staff his mental status fluctuates, little bit movement in his right upper extremity as per staff, there is less drainage from his due to from 400+ yesterday to 160 mL today 08/11/2017 Patient is lying in the bed comfortable. Otherwise patient is awake alert but could not able to communicate. Patient has been afebrile. Saturating well on nasal cannula. Patient was started on amiodarone and also on antibiotics in the form of Unasyn. Patient is status post cholecystectomy. XAVI drain is in place. Patient had generalized weakness and right upper in the weakness is improving. Patient is being continued on PT OT. MRI of the brain could not be done due to surgical stables. Otherwise patient has a febrile. Able to nod his abdomen but could not able to speak. Patient was able to finish only 20% of the meal. 08/12/2017 Patient seems to be more awake and alert today. But could not able to communicate. Patient does have generalized weakness and lethargic. Able to eat small portion of food. Otherwise patient was started on amiodarone for nonsustained V. tach and cardiology is following. Patient does have right upper extremity weakness. MRI could not be done. Otherwise surgical wound abdominal is healing well. General surgery is following. Patient has been afebrile. Denied any complaints of chest pain or worsening shortness of breath. No nausea vomiting or abdominal pain. Hemodynamically stable and currently on oxygen therapy gradually titrating down to room air. Complete review of systems could not be obtained from the patient. Active Medications Generic Name Dose Route Start Last Admin Trade Name Freq PRN Reason Stop Dose Admin Acetaminophen 650 mg 08/02/17 01:09 Tylenol Tab PO Q6HR PRN Fever and/ or Pain Acetaminophen 650 mg 08/02/17 22:27 Tylenol Suppository RECTAL Q4HR PRN Fever and/or Mild Pain Albuterol/Ipratropium 3 ml 08/02/17 08:00 08/12/17 20:25 Duoneb 0.5 Mg-3 Mg/3 Ml Soln INHALATION 3 ml RT-QID BRENNA Administration Allopurinol 300 mg 08/02/17 21:00 08/12/17 21:09 Zyloprim PO 300 mg HS BRENNA Administration Amiodarone HCl 400 mg 08/10/17 21:00 08/12/17 21:09 Cordarone PO 400 mg BID BRENNA Administration Amlodipine Besylate 5 mg 08/07/17 21:00 08/12/17 21:09 Norvasc PO 5 mg HS BRENNA Administration Artificial Tears 1 drops 08/07/17 18:59 08/11/17 21:12 Artificial Tear Drops BOTH EYES 1 drops QID PRN Administration Dry Eye(s) Aspirin 81 mg 08/03/17 09:00 08/12/17 08:52 Aspirin PO 81 mg DAILY BRENNA Administration Budesonide/Formoterol Fumarate 2 puff 08/02/17 08:00 08/12/17 20:40 Symbicort 160-4.5 Mcg Inhaler INHALATION Not Given RT-BID BRENNA Enoxaparin Sodium 40 mg 08/02/17 09:00 08/12/17 08:52 Lovenox SQ 40 mg DAILY BRENNA Administration Famotidine 20 mg 08/10/17 21:00 08/12/17 21:09 Pepcid PO 20 mg Q12HR [facility]ENNA Administration Folic Acid 1 each 08/08/17 12:00 08/12/17 13:32 Folbic PO 1 each DAILY@1200 BRENNA Administration Hydralazine HCl 10 mg 08/07/17 14:55 08/09/17 00:21 Apresoline IVP 10 mg Q4HR PRN Administration systolic BP greater than 160 Ampicillin Sodium/Sulbactam 100 mls @ 100 mls/hr 08/04/17 12:15 08/12/17 17: 02 Sodium 3 gm/ Sodium Chloride IVPB 100 mls/hr Q6HR [facility]ENNA Administration Potassium Chloride/Dextrose/Sod Cl 1,000 mls @ 50 mls/hr 08/06/17 12:00 08/12 00:27 D5%-1/2ns-Kcl 20 Meq/L Iv Solution IV 50 mls/hr .Q20H [facility]ENNA Administration Insulin Aspart 0 unit 08/04/17 06:00 08/12/17 18:31 Novolog SQ Not Given Q6H [facility] Protocol Labetalol HCl 20 mg 08/06/17 09:22 08/08/17 18:51 Trandate IVP 20 mg Q4H PRN Administration systolic greater than 160 Lisinopril 5 mg 08/06/17 11:00 08/12/17 08:52 Zestril OG-TUBE 5 mg DAILY BRENNA Administration Lorazepam 2 mg 08/02/17 21:55 08/03/17 23:39 Ativan IV 2 mg Q2HR PRN Administration Sedation Metoclopramide HCl 5 mg 08/07/17 12:00 08/12/17 17:02 Reglan IVP 5 mg Q6HR BRENNA Administration Metoprolol Tartrate 50 mg 08/10/17 09:00 08/12/17 21:09 Lopressor PO 50 mg BID BRENNA Administration Mexiletine HCl 150 mg 08/10/17 09:00 08/12/17 21:10 Mexitil PO 150 mg TID BRENNA Administration Miscellaneous Information 1 each 08/01/17 23:08 Pneumonia Protocol Utilized PO ONCE PRN Per Protocol Miscellaneous Information 1 each 08/06/17 04:22 Magnesium Per Protocol MISCELLANE DAILY PRN Per Protocol Protocol Morphine Sulfate 2 mg 08/02/17 21:55 08/07/17 07:12 Morphine Sulfate (Inj) IVP 2 mg Q2HR PRN Administration Vent compliance Naloxone HCl 0.2 mg 08/02/17 22:27 Narcan IV Q2M PRN Opioid Reversal Spironolactone 25 mg 08/02/17 11:15 08/12/17 08:52 Aldactone PO 25 mg DAILY BRENNA Administration Objective - Vital Signs Vital signs: Vital Signs Temp 98.7 F 08/12/17 11:00 Pulse 68 08/12/17 11:38 Resp 19 08/12/17 11:22 BP 119/71 08/12/17 11:00 Pulse Ox 99 08/12/17 11:00 Intake & Output 08/11/17 08/12/17 08/12/17 18:59 06:59 18:59 Intake Total 850 900 300 Output Total 1130 1840 825 Balance -280 -940 -525 Weight 103 kg Intake: IV 790 900 300 0.9 at KVO 90 100 50 Ampicillin-Sulbactam 3 gm 100 200 In Sodium Chloride 0.9% 100 ml @ 100 mls/hr IVPB Q6HR [facility] Rx#:[id number] D5-0.45% NaCl with KCl 600 600 250 20Meq/l 1,000 ml @ 50 mls /hr IV .Q20H [facility] Rx#: [id number] Oral 60 Output: Drainage 20 25 75 Right Lower Lateral 20 25 75 Abdomen Urine 1110 1815 750 Other: Voiding Method Indwelling Catheter Indwelling Catheter Indwelling Catheter # Voids 2 ABP, PAP, CO, CI - Last Documented Arterial Blood Pressure 158/76 - Exam General : pt is more awake and able to follow simple commands. Patient is able to nod his head but could not able to speak at this time. HEENT: Head is atraumatic, normocephalic. Pupils equal, round. Neck is supple. There is no elevated jugular venous pressure. HEART EXAMINATION: Heart S1-S2, no murmur is heard CHEST EXAMINATION: Lungs reveal no expiratory wheezes throughout otherwise essentially clear. ABDOMEN: Soft, nontender. Bowel sounds are heard. XAVI Drain in place. No organomegaly noted. EXTREMITIES: 2+ peripheral pulses with no evidence of peripheral edema and no calf tenderness noted. NEUROLOGIC patient is awake, alert and oriented 1-2. Right upper extremity weakness is still present. - Labs CBC & Chem 7: 08/12/17 06:39 08/12/17 06:39 Labs: Abnormal Lab Results - Last 24 Hours (Table) 08/11/17 08/12/17 08/12/17 Range/Units 17:14 00:21 05:57 RBC (4.30-5.90) m/uL Hgb (13.0-17.5) gm/dL MCV (80.0-100.0) fL Glucose (74-99) mg/dL POC Glucose (mg/dL) 144 H 112 H 112 H (75-99) mg/dL 08/12/17 08/12/17 08/12/17 Range/Units 06:39 06:39 12:17 RBC 3.87 L (4.30-5.90) m/uL Hgb 12.4 L (13.0-17.5) gm/dL MCV 101.1 H (80.0-100.0) fL Glucose 115 H (74-99) mg/dL POC Glucose (mg/dL) 123 H (75-99) mg/dL Assessment and Plan Assessment: -acute delirium possible metabolic encephalopathy and infection - 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 Improving. MRI could not be done due to surgery -acute cholycystis with E.coli s/p laparocopic cholecystectomy - E. coli septicemia/sepsis likely due to acute purulent cholecystitis -acute resp failure , was on vent , s/p extubation on 08/07/17 -Possible right middle lobe pna - Nonsustained ventricular tachycardia -Normocytic anemia -UTI -Chronic CHF with systolic dysfunction EF 35-40% -HTN -HLP -h/o CAD, s/p stent -Generalized weakness Plan: continue with current management , continue with symptomatic treatment , continue with broad spectrum antibiotic , follow closely with surgery , infectious disease, neurology , Neurovascular work up is indicated. prognosis remains guarded giving his multiple complex medical problems and severity. further recommendations to follow . Continue with PT OT. Time with Patient: Greater than 30
--- NOTE | 2017-08-12 22:35 | PN ---
PROGRESS NOTE DATE OF SERVICE: 08/12/2017 REASON FOR FOLLOWUP: E. coli bacteremia secondary to the acute cholecystitis. INTERVAL HISTORY: The patient is afebrile. He has been breathing comfortably. He is more awake and alert. Denies having any chest pain or shortness of breath. No abdominal pain. No nausea, vomiting, diarrhea. EXAMINATION: Blood pressure is 154/91 with a pulse of 83, temperature 98.8. He is 94% on room air. General description is an elderly male lying in bed in no distress. RESPIRATORY DISTRESS: Unlabored breathing, clear to auscultation anteriorly. HEART: S1, S2. Regular rate and rhythm. ABDOMEN: Soft, no tenderness. EXTREMITIES: No edema of the feet. LABS: Hemoglobin 12.4, white count 8.7, BUN of 15, creatinine 0.89. DIAGNOSTIC IMPRESSION AND PLAN: Patient with Escherichia coli bacteremia secondary to cholecystitis, status post laparoscopic cholecystectomy. The patient is currently on Unasyn that can be transitioned to oral Augmentin for about 4 to 5 days to finish a course of therapy. The central line should be discontinued to decrease risk of sepsis. Continue with supportive care. MMODL / IJN: [id number] /
[2017-08-12 23:39] LABS: Glucose,Whole Blood 109 mg/dL (75-99)
[2017-08-13 05:53] LABS: Glucose,Whole Blood 180 mg/dL (75-99)
[2017-08-13] MEDS: INSULIN ASPART 100 UNIT/ML 1 ML 10 ML VIAL SQ SCH ×4 (05:59→23:03)
[2017-08-13] MEDS: AMPICILLIN-SULBACTAM 3 GM in SODIUM CHLORIDE 0.9% 100 ML IVPB SCH ×4 (05:59→22:54)
[2017-08-13] MEDS: D5-0.45% NACL WITH KCL 20MEQ/L 1,000 ML IV SCH ×2 (05:59→22:55)
[2017-08-13] MEDS: METOCLOPRAMIDE 5 MG/ML 2 ML VIAL IVP SCH ×4 (06:00→23:05)
[2017-08-13] MEDS: IPRATROPIUM-ALBUTEROL 3 ML NEB INHALATION SCH ×4 (07:22→19:52)
[2017-08-13] MEDS: SYMBICORT 160-4.5 MCG INHALER INHALATION SCH ×2 (07:22→19:52)
[2017-08-13 07:30] LABS: HCT 38.3 % (39.0-53.0); HGB 12.2 gm/dL (13.0-17.5); MCH 32.2 pg (25.0-35.0); MCHC 31.8 g/dL (31.0-37.0); MCV 101.4 fL (80.0-100.0); Macrocytosis Slight; Mean Platelet Volume 7.6; Platelet Count 346 k/uL (150-450); RBC 3.77 m/uL (4.30-5.90); RDW 13.8 % (11.5-15.5); WBC 9.1 k/uL (3.8-10.6)
[2017-08-13 07:43] LABS: Calcium 9.3 mg/dL (8.4-10.2); Phosphorus 3.9 mg/dL (2.5-4.5); Potassium 4.6 mmol/L (3.5-5.1)
[2017-08-13] MEDS: MEXILETINE 150 MG CAP PO SCH ×3 (08:17→20:55)
[2017-08-13] MEDS: AMIODARONE 200 MG TAB PO SCH ×2 (08:17→20:54)
[2017-08-13] MEDS: ASPIRIN 81 MG PO SCH (08:17)
[2017-08-13] MEDS: METOPROLOL TARTRATE 50 MG TAB PO SCH ×2 (08:17→20:54)
[2017-08-13] MEDS: SPIRONOLACTONE 25 MG TAB PO SCH (08:18)
[2017-08-13] MEDS: CYANOCOBALAMIN-FA-PYRIDOXINE 1 EACH TAB PO SCH (08:18)
[2017-08-13] MEDS: FAMOTIDINE 20 MG TAB PO SCH ×2 (08:18→20:54)
[2017-08-13] MEDS: ENOXAPARIN 40 MG/0.4 ML SYRINGE SQ SCH (08:18)
[2017-08-13] MEDS: LISINOPRIL 5 MG TAB OG-TUBE SCH (08:19)
[2017-08-13 10:59] VITALS: BMI 28.8
--- NOTE | 2017-08-13 11:09 | P.PN ---
Subjective Progress Note Date: 08/13/17 Principal diagnosis: Status post cholecystectomy for empyema of the gallbladder, postoperative bile leak The patient did well over the weekend. He's been transferred to medical floor. Oral intake is poor. Physical therapy and occupational therapy have been consulted. Objective - Vital Signs Vital signs: Vital Signs Temp 97.6 F 08/13/17 04:00 Pulse 76 08/13/17 11:01 Resp 18 08/13/17 04:00 BP 159/86 08/13/17 04:00 Pulse Ox 95 08/13/17 07:26 Intake & Output 08/12/17 08/13/17 08/13/17 18:59 06:59 18:59 Intake Total 735 Output Total 1400 1470 Balance -665 -1470 Weight 110 kg 110 kg Intake: IV 600 0.9 at KVO 100 D5-0.45% NaCl with KCl 500 20Meq/l 1,000 ml @ 50 mls /hr IV .Q20H [facility] Rx#: [id number] Oral 135 Output: Drainage 75 45 Right Lower Lateral 75 45 Abdomen Urine 1325 1425 Uretheral (Márquez) 1425 Other: Voiding Method Indwelling Catheter Indwelling Catheter # Voids 2 ABP, PAP, CO, CI - Last Documented Arterial Blood Pressure 158/76 - Constitutional General appearance: Present: cooperative, no acute distress - Gastrointestinal General gastrointestinal: Present: normal bowel sounds, soft Localized gastrointestinal: surgical scar: diffuse (Incisions healing well. XAVI is serosanguineous although there is a trace of green.) - Labs CBC & Chem 7: 08/13/17 06:17 08/13/17 06:17 Labs: Abnormal Lab Results - Last 24 Hours (Table) 08/12/17 08/12/17 08/12/17 Range/Units 12:17 18:30 23:36 RBC (4.30-5.90) m/uL Hgb (13.0-17.5) gm/dL Hct (39.0-53.0) % MCV (80.0-100.0) fL Glucose (74-99) mg/dL POC Glucose (mg/dL) 123 H 117 H 109 H (75-99) mg/dL 08/13/17 08/13/17 08/13/17 Range/Units 05:52 06:17 06:17 RBC 3.77 L (4.30-5.90) m/uL Hgb 12.2 L (13.0-17.5) gm/dL Hct 38.3 L (39.0-53.0) % MCV 101.4 H (80.0-100.0) fL Glucose 115 H (74-99) mg/dL POC Glucose (mg/dL) 180 H (75-99) mg/dL Assessment and Plan (1) Cholecystitis Current Visit: Yes Status: Acute Code(s): K81.9 - CHOLECYSTITIS, UNSPECIFIED SNOMED Code(s): 25714806 (2) Bile leak, postoperative Current Visit: Yes Status: Acute Code(s): K91.89 - OTH POSTPROCEDURAL COMPLICATIONS AND DISORDERS OF DGSTV SYS; K83.8 - OTHER SPECIFIED DISEASES OF BILIARY TRACT SNOMED Code(s): 073313984 (3) Empyema of gallbladder Current Visit: Yes Status: Acute Code(s): K81.0 - ACUTE CHOLECYSTITIS SNOMED Code(s): 28790952 (4) Systolic heart failure Current Visit: Yes Status: Acute Code(s): I50.20 - UNSPECIFIED SYSTOLIC ( CONGESTIVE) HEART FAILURE SNOMED Code(s): 917429128 Plan: We will order a bilirubin level of the XAVI output. If that's high compared to his serum bilirubin would indicate there is still a low-grade bile leak. Speech pathology, dietary, PT and OT have been ordered on him. He's progressing slowly.
[2017-08-13 11:20] LABS: Glucose,Whole Blood 123 mg/dL (75-99)
--- NOTE | 2017-08-13 12:08 | P.PN ---
Subjective Progress Note Date: 08/12/17 (Late entry note) Principal diagnosis: TIA/acute CVA, altered mental status, generalized weakness and medical debility , Uncontrolled malignant hypertension, right hemiparesis, Acute cholecystitis, empyema gallbladder Gram-negative sepsis and bacteremia, severe degree of ischemic cardiomyopathy with ejection fraction of 35%, acute on chronic systolic heart failure, coronary artery disease, 08/12/2017, patient seen and evaluated examined during the rounds he is relatively more awake able to communicate no obvious respiratory distress present hemodynamic status stable blood pressure and more stable patient is being moved out of the ICU today to selective care, medications reviewed laboratory data reviewed, chest x-ray continue show bibasilar atelectasis and cardiomegaly, family is present at bedside 08/11/2017, patient seen eval reexamined during the rounds clinically overall not much change is still weak right upper extremity, from [place] standpoint doing well breathing comfortably on supplemental oxygen hemodynamic status stable but continued intermittent runs of PVCs patient is on oral amiodarone's well is on broad-spectrum antibiotics labs reviewed medications reviewed, patient has been tolerating by mouth with nutritional status remains compromised , remains extremely weak not ready for transfer out of ICU 08/10/2017, patient seen eval reexamined during the rounds clinically patient has been doing relatively better in terms of the eye contact intermittently following commands but remains very confused patient has the intermittent weakness now the right upper extremity is more weaker, MRI couldn't be performed due to presence of clip, labs reviewed medications reviewed today's chest x-ray reviewed as well, patient has been tolerating modified diet fairly well 08/09/2017, patient seen eval reexamined during the rounds he is successfully extubated is slightly more awake and alert he is moving his all 4 extremity is still weaker on the right side though, patient is being followed by general surgery and GI as well output is improved through the [facility], patient has been tolerating by mouth modified diet labs reviewed medications reviewed radiographic studies reviewed as well, request PT OT to evaluate, x-ray not performed today, labs reviewed, patient is for MRI of the brain later on today due to runs of ventricular tachycardia has been started on amiodarone and is still on IV amiodarone MRI to be performed once patient comes off of the amiodarone drip. 08/08/2017, patient seen eval examined during the rounds he is been off of respirator for over 24 hours breathing comfortably he is on supplemental oxygen he is been intermittently moving his right upper extremity mostly awake but has intermittent episodes of confusion family is present at bedside, patient able to swallow applesauce with pills, chest x-ray laboratory data reviewed small bilateral pleural effusion likely related to intra-abdominal processes as well as baseline cardiomyopathy 08/07/2017, patient seen eval examined during the rounds he has been on SIMV rate of 8 breathing about 16-18, FiO2 is down to 40%, patient has been placed on CPAP 5 pressure support of 5 on which she was monitor observe for over an hour and arterial blood gases reviewed weaning parameters reviewed as well patient is a 50 more awake and makes her better eye contact some movement 1/5 in right upper extremity has been noted, chest x-ray reviewed laboratory data reviewed as well care plan discussed with the primary service and nursing staff at length and family present at bedside patient was switched to CPAP 5 pressure support of 5 and spontaneous tidal volume were and 500 range with respiratory rate and high teens to low 20s no obvious respirator distress presents slight elevation in blood pressure was however noted likely related to stress of weaning, overall blood pressure is very well controlled with current intervention, patient required 2 doses of morphine overnight otherwise remains off of sedation, as per recommendation of GI services patient will probably require ERCP once extubated 08/06/2017, patient seen evcristina examined during the rounds patient has been taking off of sedation has been off of propofol for over an hour however noted to have slow rise in blood pressure Coreg dose has been escalated to double the dose patient is awake with a blank stare has been moving left upper and lower extremity fairly well some movement and right lower extremity is present but cannot move right upper extremity, patient has been placed on CPAP of 5 and pressure support of 5 which she tolerated fairly well but still arterial blood gases suggestive of significant hypoxemia, chest x-ray reviewed right lower lobe pneumonia improved with a small pleural effusion, laboratory data reviewed as well care plan discussed with surgical services nursing staff and patient's at length critical care time spent 45 minutes 08/05/2017, patient seen evcristina reexamined during the rounds currently patient remains on full ventilator support with the assist control mode sed rate is 18 breathing 18, tidal volume is 550, 8 of PEEP, FiO2 is down to 40% patient remains on propofol drip which is gradually being titrated down as per plans for sedation holiday, labs reviewed medications reviewed care plan discussed with the surgical services patient is to be started on tube feed as per their recommendation, telemetry revealed presence of intermittent episodes of the nonsustained ventricular tachycardia as well as multiple PVCs patient has been on beta blockers and calcium channel blockers which were discontinued due to severe hypotension as blood pressure has been stabilized now and going up towards we'll resume those medications likely they will help those PVCs as well. We will defer cardiovascular services for initiation or maintenance of amiodarone. Patient is making adequate urine, chest x-ray laboratory data and medications reviewed noted repeat blood cultures have been negative so far ROM of white cell count is normalize arterial blood gases are adequate chest x-ray reviewed note is made of the NG tube improve aeration noted bilateral bases 08/04/2017, patient seen eval examined during the rounds patient remains sedated with propofol drip attempts to wean oxygen down has been unsuccessful overnight however able to bring down the oxygen to 40% from 50% PEEP has been lowered from 10-8, patient is now taken off a few fed drip ventilator setting is stable but the patient continued to manifest respiratory acidosis vent setting include assist control rate of 18 and tidal volume of 500 PEEP of 1060% oxygen respiratory rate is 12 he is calm arousable opens eyes follow simple commands family is present at the bedside care plan discussed with the family at length in light of severe degree of ischemic cardiomyopathy and very low ejection fraction patient will be kept on respirator for another 24-48 hours and slowly will be weaned, propofol is 15 mics, patient is getting Accu-Cheks with relatively stable sugars, currently patient is on D5 half normal saline 20 K meq of KCl with 100 mL an hour. Chest x-ray from this morning reviewed basal atelectasis and right-sided effusion and right lower lobe consolidation is seen , operative findings reviewed empyema gallbladder noted with severe acute cholecystitis culture reviewed my E. coli is sensitive to Unasyn 01/2018, patient seen and evaluated examined in the ICU this patient has been admitted into the hospital with generalized weakness syncope intermittent runs of V. tach with baseline history of severe degree of cardiomyopathy ischemic in nature with ejection fraction just 30-35% patient has a patchy infiltrate on the right side is being treated for pneumonia and sepsis, around 9 PM patient had episode of increasing shortness of breath increases abdominal pain a computed tomography scan of the abdominal and pelvis revealed presence of cholecystitis, general surgery has been consulted patient continued to increase respiratory distress eventually brought into the ICU where he was intubated patient was initially hypertensive however postintubation has episode of hypertension and earlier this morning required fluid resuscitation he did receive Lasix with some urine output yesterday currently Lasix is being held at it appears that patient is somewhat volume depleted culture results and reports are reviewed patient is growing gram-negative rods in the blood likely source being ascending cholangitis versus urinary tract infection with first being more likely urine culture however is pending urinalysis suggestive of inflammatory processes though. His ventilator settings reviewed currently patient is on assist control rate of 18 breathing 22 he is on tidal volume of 500, PEEP is 10 and FiO2 was initially 100% and gradually titrated down to 60% his lactic acid level was mildly elevated pro calcitonin was elevated to, currently patient is on amiodarone map is around 65-70 he is also on propofol 15 mics normal saline KVO amiodarone drip as 0.5 mg/m, patient is well sedated with current ventilator setting and sedation and also being treated with broad- spectrum antibiotics with IV Zosyn his medications are reviewed given that hypertension is present antihypertensive agents are being held, patient will need IV axis but triple-lumen catheter as well as and A-line consent are being obtained 81-year-old male with history of ischemic cardiomyopathy ejection fraction of 30 -35% has not been feeling well for the last 2-3 week with increasing shortness of breath patient does have a history of chronic lower extremity edema with a history of coronary artery disease status post CABG back in 1995. Patient for the last 2 weeks has not been feeling well has been more short of breath than usual has dry nonproductive cough as well which is intermittent off and on due to progressive increasing shortness of breath lately has been feeling weak as well with some intermittent episodes of dizziness lightheadedness patient came into the emergency department he did spike a fever up to 102, over his white cell count were normal chest x-ray showed borderline cardiomegaly and some early infiltrate in the right midlung field cannot be excluded. Patient about 2 weeks ago had a recent fall however he never lost his consciousness no seizure -like activity was seen patient appears to have developed nondisplaced left 10th rib fracture as seen on the rib x-rays. On arrival patient appeared to be in acute exacerbation of CHF likely acute on chronic systolic heart failure with elevated BNP of over 1800, in addition to above patient had echocardiogram which revealed ejection fraction 30% with inferior basal hypokinesia, patient also noted to have intermittent runs of PVCs and has been placed on IV amiodarone, this requestioning patient denies any chest pain or radiation of pain denies any sputum production denies any night sweats fever or chills he denies any seizure-like activity he did have intermittent dizziness usually turning around. He denies any bowel or bladder dysfunction he has chronic lower extremity trace edema. Objective - Vital Signs Vital signs: Vital Signs Temp 97.7 F 08/13/17 11:48 Pulse 82 08/13/17 11:48 Resp 18 08/13/17 11:48 BP 151/83 08/13/17 11:48 Pulse Ox 96 08/13/17 11:48 Intake & Output 08/12/17 08/13/17 08/13/17 18:59 06:59 18:59 Intake Total 735 Output Total 1400 1470 Balance -665 -1470 Weight 110 kg 110 kg Intake: IV 600 0.9 at KVO 100 D5-0.45% NaCl with KCl 500 20Meq/l 1,000 ml @ 50 mls /hr IV .Q20H [facility] Rx#: [id number] Oral 135 Output: Drainage 75 45 Right Lower Lateral 75 45 Abdomen Urine 1325 1425 Uretheral (Márquez) 1425 Other: Voiding Method Indwelling Catheter Indwelling Catheter Urinal # Voids 2 ABP, PAP, CO, CI - Last Documented Arterial Blood Pressure 158/76 - Exam - Constitutional General appearance: average body habitus, awake and opens eyes follow simple commands- EENT Eyes: EOMI, PERRLA, normal appearance ENT: hard of hearing Ears: bilateral: normal - Neck Neck: normal ROM Carotids: right: bruit absent, bilateral: upstroke normal Thyroid: bilateral: normal size - Respiratory Respiratory: bilateral: CTA, few basal crackles bilaterally are present - Cardiovascular Heart sounds: normal: S1 and S2 no gallop rub or murmur - Gastrointestinal General gastrointestinal: Normal to hypoactive bowel sounds, soft - Integumentary Integumentary: normal, normal turgor - Neurologic More awake follows simple commands intermittently moving all 4 extremity was noted to have more strength in right upper extremity previously however lately he is not moving it- Musculoskeletal Musculoskeletal: Well developed, week right upper extremity but intermittently moving all 4 extremity more weaker on the right side - Psychiatric Psychiatric: Unable to assess - Labs CBC & Chem 7: 08/13/17 06:17 08/13/17 06:17 Labs: Abnormal Lab Results - Last 24 Hours (Table) 08/12/17 08/12/17 08/12/17 Range/Units 12:17 18:30 23:36 RBC (4.30-5.90) m/uL Hgb (13.0-17.5) gm/dL Hct (39.0-53.0) % MCV (80.0-100.0) fL Glucose (74-99) mg/dL POC Glucose (mg/dL) 123 H 117 H 109 H (75-99) mg/dL 08/13/17 08/13/17 08/13/17 Range/Units 05:52 06:17 06:17 RBC 3.77 L (4.30-5.90) m/uL Hgb 12.2 L (13.0-17.5) gm/dL Hct 38.3 L (39.0-53.0) % MCV 101.4 H (80.0-100.0) fL Glucose 115 H (74-99) mg/dL POC Glucose (mg/dL) 180 H (75-99) mg/dL 08/13/17 Range/Units 11:11 RBC (4.30-5.90) m/uL Hgb (13.0-17.5) gm/dL Hct (39.0-53.0) % MCV (80.0-100.0) fL Glucose (74-99) mg/dL POC Glucose (mg/dL) 123 H (75-99) mg/dL Assessment and Plan Assessment: Right upper extremity weakness evaluated for left hemispheric stroke likely TIA , patient appears to be recovering with 2 negative computed tomography scan of the head, MRI of the brain cannot be performed due to presence of clips at cholecystectomy site Uncontrolled malignant hypertension, relatively better under control now Intermittent runs of nonsustained ventricular tachycardia and multiple PVCs with stable electrolytes likely related to ischemic cardiomyopathy, on oral amiodarone Severe sepsis and septic shock related to gram-negative bacteremia related to empyema bladder Empyema gallbladder Acute cholangitis and gram-negative bacteremia Acute cholecystitis Early developing pneumonia in right lower lobe with effusion Acute hypoxic and hypercapnic respirator failure multifactorial related to above Spiking fever may be related to above however will follow up on urine culture results and report Acute exacerbation of CHF likely acute on chronic systolic heart failure with ejection fraction of 30-35% Status post fall with left 10th rib fracture Coronary artery disease and ischemic cardiomyopathy Intermittent episodes of PVCs and arrhythmia, patient is on amiodarone currently History of BPH Dyslipidemia hypertension hypertensive cardiovascular disease Plan: Continue physical therapy and supportive care Improved nutritional status as tolerated Continue Coreg, oral amiodarone monitor labs closely Reviewed neurology recommendations Patient is spontaneously breathing with adequate oxygenation Medicine adjusted Continued DVT and peptic ulcer disease prophylaxis Electrolyte replacement as tolerated Broad-spectrum antibiotics Breathing treatment Reviewed urine and blood culture results and report Optimize cardiovascular therapy Repeat labs tomorrow Physical therapy increase activity as tolerated Plans for ERCP on hold for now PTOT evaluation increase activity as tolerated okay to move patient out of ICU Discussed with surgical services, nursing staff, patient's at length Time with Patient: Greater than 30
--- NOTE | 2017-08-13 12:11 | P.PN ---
Subjective Progress Note Date: 08/13/17 Principal diagnosis: TIA/acute CVA, altered mental status, generalized weakness and medical debility , Uncontrolled malignant hypertension, right hemiparesis, Acute cholecystitis, empyema gallbladder Gram-negative sepsis and bacteremia, severe degree of ischemic cardiomyopathy with ejection fraction of 35%, acute on chronic systolic heart failure, coronary artery disease, 08/13/2017, patient seen and evaluated examined during the rounds he is at room air breathing comfortably he has some movement in the right upper extremity noted family is present bedside including and [place] care plan discussed with the patient at length patient and expressed at the time of discharge they would like patient to be at [facility], which is closer to their house [facility] labs and medications reviewed 08/12/2017, patient seen and evaluated examined during the rounds he is relatively more awake able to communicate no obvious respiratory distress present hemodynamic status stable blood pressure and more stable patient is being moved out of the ICU today to [facility], medications reviewed laboratory data reviewed, chest x-ray continue show bibasilar atelectasis and cardiomegaly, family is present at bedside 08/11/2017, patient seen eval reexamined during the rounds clinically overall not much change is still weak right upper extremity, from [place] standpoint doing well breathing comfortably on supplemental oxygen hemodynamic status stable but continued intermittent runs of PVCs patient is on oral amiodarone's well is on broad-spectrum antibiotics labs reviewed medications reviewed, patient has been tolerating by mouth with nutritional status remains compromised , remains extremely weak not ready for transfer out of ICU 08/10/2017, patient seen eval reexamined during the rounds clinically patient has been doing relatively better in terms of the eye contact intermittently following commands but remains very confused patient has the intermittent weakness now the right upper extremity is more weaker, MRI couldn't be performed due to presence of clip, labs reviewed medications reviewed today's chest x-ray reviewed as well, patient has been tolerating modified diet fairly well 08/09/2017, patient seen eval reexamined during the rounds he is successfully extubated is slightly more awake and alert he is moving his all 4 extremity is still weaker on the right side though, patient is being followed by general surgery and GI as well output is improved through the [facility], patient has been tolerating by mouth modified diet labs reviewed medications reviewed radiographic studies reviewed as well, request PT OT to evaluate, x-ray not performed today, labs reviewed, patient is for MRI of the brain later on today due to runs of ventricular tachycardia has been started on amiodarone and is still on IV amiodarone MRI to be performed once patient comes off of the amiodarone drip. 08/08/2017, patient seen manjit examined during the rounds he is been off of respirator for over 24 hours breathing comfortably he is on supplemental oxygen he is been intermittently moving his right upper extremity mostly awake but has intermittent episodes of confusion family is present at bedside, patient able to swallow applesauce with pills, chest x-ray laboratory data reviewed small bilateral pleural effusion likely related to intra-abdominal processes as well as baseline cardiomyopathy 08/07/2017, patient seen manjit examined during the rounds he has been on SIMV rate of 8 breathing about 16-18, FiO2 is down to 40%, patient has been placed on CPAP 5 pressure support of 5 on which she was monitor observe for over an hour and arterial blood gases reviewed weaning parameters reviewed as well patient is a 50 more awake and makes her better eye contact some movement 1/5 in right upper extremity has been noted, chest x-ray reviewed laboratory data reviewed as well care plan discussed with the primary service and nursing staff at length and family present at bedside patient was switched to CPAP 5 pressure support of 5 and spontaneous tidal volume were and 500 range with respiratory rate and high teens to low 20s no obvious respirator distress presents slight elevation in blood pressure was however noted likely related to stress of weaning, overall blood pressure is very well controlled with current intervention, patient required 2 doses of morphine overnight otherwise remains off of sedation, as per recommendation of GI services patient will probably require ERCP once extubated 08/06/2017, patient seen manjit examined during the rounds patient has been taking off of sedation has been off of propofol for over an hour however noted to have slow rise in blood pressure Coreg dose has been escalated to double the dose patient is awake with a blank stare has been moving left upper and lower extremity fairly well some movement and right lower extremity is present but cannot move right upper extremity, patient has been placed on CPAP of 5 and pressure support of 5 which she tolerated fairly well but still arterial blood gases suggestive of significant hypoxemia, chest x-ray reviewed right lower lobe pneumonia improved with a small pleural effusion, laboratory data reviewed as well care plan discussed with surgical services nursing staff and patient's at length critical care time spent 45 minutes 08/05/2017, patient seen eval reexamined during the rounds currently patient remains on full ventilator support with the assist control mode sed rate is 18 breathing 18, tidal volume is 550, 8 of PEEP, FiO2 is down to 40% patient remains on propofol drip which is gradually being titrated down as per plans for sedation holiday, labs reviewed medications reviewed care plan discussed with the surgical services patient is to be started on tube feed as per their recommendation, telemetry revealed presence of intermittent episodes of the nonsustained ventricular tachycardia as well as multiple PVCs patient has been on beta blockers and calcium channel blockers which were discontinued due to severe hypotension as blood pressure has been stabilized now and going up towards we'll resume those medications likely they will help those PVCs as well. We will defer cardiovascular services for initiation or maintenance of amiodarone. Patient is making adequate urine, chest x-ray laboratory data and medications reviewed noted repeat blood cultures have been negative so far ROM of white cell count is normalize arterial blood gases are adequate chest x-ray reviewed note is made of the NG tube improve aeration noted bilateral bases 08/04/2017, patient seen eval examined during the rounds patient remains sedated with propofol drip attempts to wean oxygen down has been unsuccessful overnight however able to bring down the oxygen to 40% from 50% PEEP has been lowered from 10-8, patient is now taken off a few fed drip ventilator setting is stable but the patient continued to manifest respiratory acidosis vent setting include assist control rate of 18 and tidal volume of 500 PEEP of 1060% oxygen respiratory rate is 12 he is calm arousable opens eyes follow simple commands family is present at the bedside care plan discussed with the family at length in light of severe degree of ischemic cardiomyopathy and very low ejection fraction patient will be kept on respirator for another 24-48 hours and slowly will be weaned, propofol is 15 mics, patient is getting Accu-Cheks with relatively stable sugars, currently patient is on D5 half normal saline 20 K meq of KCl with 100 mL an hour. Chest x-ray from this morning reviewed basal atelectasis and right-sided effusion and right lower lobe consolidation is seen , operative findings reviewed empyema gallbladder noted with severe acute cholecystitis culture reviewed my E. coli is sensitive to Unasyn 01/2018, patient seen and evaluated examined in the ICU this patient has been admitted into the hospital with generalized weakness syncope intermittent runs of V. tach with baseline history of severe degree of cardiomyopathy ischemic in nature with ejection fraction just 30-35% patient has a patchy infiltrate on the right side is being treated for pneumonia and sepsis, around 9 PM patient had episode of increasing shortness of breath increases abdominal pain a computed tomography scan of the abdominal and pelvis revealed presence of cholecystitis, general surgery has been consulted patient continued to increase respiratory distress eventually brought into the ICU where he was intubated patient was initially hypertensive however postintubation has episode of hypertension and earlier this morning required fluid resuscitation he did receive Lasix with some urine output yesterday currently Lasix is being held at it appears that patient is somewhat volume depleted culture results and reports are reviewed patient is growing gram-negative rods in the blood likely source being ascending cholangitis versus urinary tract infection with first being more likely urine culture however is pending urinalysis suggestive of inflammatory processes though. His ventilator settings reviewed currently patient is on assist control rate of 18 breathing 22 he is on tidal volume of 500, PEEP is 10 and FiO2 was initially 100% and gradually titrated down to 60% his lactic acid level was mildly elevated pro calcitonin was elevated to, currently patient is on amiodarone map is around 65-70 he is also on propofol 15 mics normal saline KVO amiodarone drip as 0.5 mg/m, patient is well sedated with current ventilator setting and sedation and also being treated with broad- spectrum antibiotics with IV Zosyn his medications are reviewed given that hypertension is present antihypertensive agents are being held, patient will need IV axis but triple-lumen catheter as well as and A-line consent are being obtained 81-year-old male with history of ischemic cardiomyopathy ejection fraction of 30 -35% has not been feeling well for the last 2-3 week with increasing shortness of breath patient does have a history of chronic lower extremity edema with a history of coronary artery disease status post CABG back in 1995. Patient for the last 2 weeks has not been feeling well has been more short of breath than usual has dry nonproductive cough as well which is intermittent off and on due to progressive increasing shortness of breath lately has been feeling weak as well with some intermittent episodes of dizziness lightheadedness patient came into the emergency department he did spike a fever up to 102, over his white cell count were normal chest x-ray showed borderline cardiomegaly and some early infiltrate in the right midlung field cannot be excluded. Patient about 2 weeks ago had a recent fall however he never lost his consciousness no seizure -like activity was seen patient appears to have developed nondisplaced left 10th rib fracture as seen on the rib x-rays. On arrival patient appeared to be in acute exacerbation of CHF likely acute on chronic systolic heart failure with elevated BNP of over 1800, in addition to above patient had echocardiogram which revealed ejection fraction 30% with inferior basal hypokinesia, patient also noted to have intermittent runs of PVCs and has been placed on IV amiodarone, this requestioning patient denies any chest pain or radiation of pain denies any sputum production denies any night sweats fever or chills he denies any seizure-like activity he did have intermittent dizziness usually turning around. He denies any bowel or bladder dysfunction he has chronic lower extremity trace edema. Objective - Vital Signs Vital signs: Vital Signs Temp 97.7 F 08/13/17 11:48 Pulse 82 08/13/17 11:48 Resp 18 08/13/17 11:48 BP 151/83 08/13/17 11:48 Pulse Ox 96 08/13/17 11:48 Intake & Output 08/12/17 08/13/17 08/13/17 18:59 06:59 18:59 Intake Total 735 Output Total 1400 1470 Balance -665 -1470 Weight 110 kg 110 kg Intake: IV 600 0.9 at KVO 100 D5-0.45% NaCl with KCl 500 20Meq/l 1,000 ml @ 50 mls /hr IV .Q20H [facility] Rx#: [id number] Oral 135 Output: Drainage 75 45 Right Lower Lateral 75 45 Abdomen Urine 1325 1425 Uretheral (Márquez) 1425 Other: Voiding Method Indwelling Catheter Indwelling Catheter Urinal # Voids 2 ABP, PAP, CO, CI - Last Documented Arterial Blood Pressure 158/76 - Exam - Constitutional General appearance: average body habitus, awake and opens eyes follow simple commands- EENT Eyes: EOMI, PERRLA, normal appearance ENT: hard of hearing Ears: bilateral: normal - Neck Neck: normal ROM Carotids: right: bruit absent, bilateral: upstroke normal Thyroid: bilateral: normal size - Respiratory Respiratory: bilateral: CTA, few basal crackles bilaterally are present - Cardiovascular Heart sounds: normal: S1 and S2 no gallop rub or murmur - Gastrointestinal General gastrointestinal: Normal to hypoactive bowel sounds, soft - Integumentary Integumentary: normal, normal turgor - Neurologic More awake follows simple commands intermittently moving all 4 extremity was noted to have more strength in right upper extremity previously however lately he is not moving it- Musculoskeletal Musculoskeletal: Well developed, week right upper extremity but intermittently moving all 4 extremity more weaker on the right side - Psychiatric Psychiatric: Unable to assess - Labs CBC & Chem 7: 08/13/17 06:17 08/13/17 06:17 Labs: Abnormal Lab Results - Last 24 Hours (Table) 08/12/17 08/12/17 08/12/17 Range/Units 12:17 18:30 23:36 RBC (4.30-5.90) m/uL Hgb (13.0-17.5) gm/dL Hct (39.0-53.0) % MCV (80.0-100.0) fL Glucose (74-99) mg/dL POC Glucose (mg/dL) 123 H 117 H 109 H (75-99) mg/dL 08/13/17 08/13/17 08/13/17 Range/Units 05:52 06:17 06:17 RBC 3.77 L (4.30-5.90) m/uL Hgb 12.2 L (13.0-17.5) gm/dL Hct 38.3 L (39.0-53.0) % MCV 101.4 H (80.0-100.0) fL Glucose 115 H (74-99) mg/dL POC Glucose (mg/dL) 180 H (75-99) mg/dL 08/13/17 Range/Units 11:11 RBC (4.30-5.90) m/uL Hgb (13.0-17.5) gm/dL Hct (39.0-53.0) % MCV (80.0-100.0) fL Glucose (74-99) mg/dL POC Glucose (mg/dL) 123 H (75-99) mg/dL Assessment and Plan Assessment: Right upper extremity weakness evaluated for left hemispheric stroke likely TIA , patient appears to be recovering with 2 negative computed tomography scan of the head, MRI of the brain cannot be performed due to presence of clips at cholecystectomy site Intermittent runs of nonsustained ventricular tachycardia and multiple PVCs with stable electrolytes likely related to ischemic cardiomyopathy, on oral amiodarone Severe sepsis and septic shock related to gram-negative bacteremia related to empyema bladder Empyema gallbladder Acute cholangitis and gram-negative bacteremia Acute cholecystitis Early developing pneumonia in right lower lobe with effusion Acute hypoxic and hypercapnic respirator failure multifactorial related to above Acute exacerbation of CHF likely acute on chronic systolic heart failure with ejection fraction of 30-35% Status post fall with left 10th rib fracture Coronary artery disease and ischemic cardiomyopathy Intermittent episodes of PVCs and arrhythmia, patient is on amiodarone currently History of BPH Dyslipidemia hypertension hypertensive cardiovascular disease Plan: Continue physical therapy and supportive care Improved nutritional status as tolerated Continue Coreg, oral amiodarone monitor labs closely Reviewed neurology recommendations Patient is spontaneously breathing with adequate oxygenation Medicine adjusted Continued DVT and peptic ulcer disease prophylaxis Electrolyte replacement as tolerated Broad-spectrum antibiotics Breathing treatment Reviewed urine and blood culture results and report Optimize cardiovascular therapy Repeat labs tomorrow Physical therapy increase activity as tolerated Plans for ERCP on hold for now PTOT evaluation increase activity as tolerated Discussed with, nursing staff, patient's at length Time with Patient: Greater than 30
--- NOTE | 2017-08-13 15:48 | P.PN ---
Subjective Progress Note Date: 08/13/17 Is is an 81-year-old patient admitted to the hospital with acute cholecystitis, sepsis, and nonsustained ventricular tachycardia. He did not have any further noted runs of V. tach on the monitor. He continues to be on mexiletine and amiodarone. Hemodynamically he is stable. Sodium 137, potassium 4.6, BUN 16, creatinine 1.0. Magnesium 2.0. Objective - Vital Signs Vital signs: Vital Signs Temp 97.7 F 08/13/17 11:48 Pulse 80 08/13/17 15:34 Resp 18 08/13/17 11:48 BP 151/83 08/13/17 11:48 Pulse Ox 96 08/13/17 11:48 Intake & Output 08/12/17 08/13/17 08/13/17 18:59 06:59 18:59 Intake Total 735 Output Total 1400 1470 Balance -665 -1470 Weight 110 kg 110 kg Intake: IV 600 0.9 at KVO 100 D5-0.45% NaCl with KCl 500 20Meq/l 1,000 ml @ 50 mls /hr IV .Q20H [facility] Rx#: [id number] Oral 135 Output: Drainage 75 45 Right Lower Lateral 75 45 Abdomen Urine 1325 1425 Uretheral (Márquez) 1425 Other: Voiding Method Indwelling Catheter Indwelling Catheter Urinal # Voids 2 ABP, PAP, CO, CI - Last Documented Arterial Blood Pressure 158/76 - Exam PHYSICAL EXAMINATION: HEENT: Head is atraumatic, normocephalic. Pupils equal, round. Neck is supple. There is no elevated jugular venous pressure. HEART EXAMINATION: Heart S1, S2 normal. No murmur or gallop heard. CHEST EXAMINATION: Lungs reveal bibasilar crackles. ABDOMEN: Soft, nontender. Bowel sounds are heard. No organomegaly noted. EXTREMITIES: 2+ peripheral pulses with no evidence of peripheral edema and no calf tenderness noted. NEUROLOGIC [patient is awake, opens eyes on command. - Labs CBC & Chem 7: 08/13/17 06:17 08/13/17 06:17 Labs: Abnormal Lab Results - Last 24 Hours (Table) 08/12/17 08/12/17 08/13/17 Range/Units 18:30 23:36 05:52 RBC (4.30-5.90) m/uL Hgb (13.0-17.5) gm/dL Hct (39.0-53.0) % MCV (80.0-100.0) fL Glucose (74-99) mg/dL POC Glucose (mg/dL) 117 H 109 H 180 H (75-99) mg/dL 08/13/17 08/13/17 08/13/17 Range/Units 06:17 06:17 11:11 RBC 3.77 L (4.30-5.90) m/uL Hgb 12.2 L (13.0-17.5) gm/dL Hct 38.3 L (39.0-53.0) % MCV 101.4 H (80.0-100.0) fL Glucose 115 H (74-99) mg/dL POC Glucose (mg/dL) 123 H (75-99) mg/dL Assessment and Plan Plan: Assessment and plan #1 symptoms of progressive weakness and fatigue, with associated mild shortness of breath. Chest x-ray shows COPD with cardiomegaly. BNP [id number]. #2 frequent runs of nonsustained ventricular tachycardia #3 known history of coronary artery disease with prior bypass surgery in 1995 #4 hypertension #5 hyperlipidemia #6 diabetes #7 prior history of smoking #8 history of AAA repair #9 febrile illness Plan From cardiology's perspective, we will recommend to continue the amiodarone and mexiletine. Patient is not a candidate for AICD. DNP note has been reviewed, I agree with a documented findings and plan of care. Patient was seen and examined.
[2017-08-13 16:47] LABS: Glucose,Whole Blood 111 mg/dL (75-99)
--- NOTE | 2017-08-13 20:42 | PN ---
PROGRESS NOTE DATE OF SERVICE: 08/13/2017 REASON FOR FOLLOWUP: E coli bacteremia secondary to acute cholecystitis. INTERVAL HISTORY: The patient was seen on rounds this morning. The patient has been afebrile. He seemed to be more awake and alert, breathing comfortably. Denies having any chest pain or cough. No abdominal pain. PHYSICAL EXAMINATION: Blood pressure 129/72 with a pulse of 70, temperature 97.7. He is 92% on room air. General description is an elderly male lying in bed in no distress. RESPIRATORY SYSTEM: Unlabored breathing. Clear to auscultation anteriorly. HEART: S1, S2. Regular rate and rhythm. ABDOMEN: Soft. No tenderness. LABS: Hemoglobin is 12.2 with white count of 9.1. BUN of 16, creatinine 1.0. DIAGNOSTIC IMPRESSION AND PLAN: Patient with Escherichia coli bacteremia secondary to cholecystitis, status post open cholecystectomy. The patient is currently on Unasyn, to transition to oral Augmentin for a short course on discharge. Family was present at bedside. Their questions were answered. MMODL / IJN: [id number] /
[2017-08-13] MEDS: ALLOPURINOL 300 MG TAB PO SCH (20:54)
[2017-08-13] MEDS: amLODIPine 5 MG TAB PO SCH (20:54)
[2017-08-13 23:27] LABS: Glucose,Whole Blood 119 mg/dL (75-99)
--- NOTE | 2017-08-14 02:39 | P.PN ---
Subjective Progress Note Date: 08/13/17 Principal diagnosis: Acute CHF, acute cholecystitis, acute CVA with right-sided weakness this is a pleasant 81 yo M admitted with acute sepsis and acute resp failure , was intubated and s/p extubation today 08/07/17. is following the pt closely , ID has been consulted, the pt also was suspicious for weakness of his right upper ext and neurology has been consulted for possible stroke 08/07/17 today pt was extubated when I saw the pt he could open his eyes spontaneously , and follow command , he was not moving his right upper ext and it was in splint , pt could not provide history as he was just extubated , whoever he was noticed to breath comfortabley and not in resp distress 08/08/2017 Patient is a breathing comfortably, he opens his eyes spontaneously he doesn't follow commands as clearly sometimes suite after being the orders and he doesn' t follow all the comments, as per staff his mental status fluctuates, little bit movement in his right upper extremity as per staff, there is less drainage from his due to from 400+ yesterday to 160 mL today 08/11/2017 Patient is lying in the bed comfortable. Otherwise patient is awake alert but could not able to communicate. Patient has been afebrile. Saturating well on nasal cannula. Patient was started on amiodarone and also on antibiotics in the form of Unasyn. Patient is status post cholecystectomy. XAVI drain is in place. Patient had generalized weakness and right upper in the weakness is improving. Patient is being continued on PT OT. MRI of the brain could not be done due to surgical stables. Otherwise patient has a febrile. Able to nod his abdomen but could not able to speak. Patient was able to finish only 20% of the meal. 08/12/2017 Patient seems to be more awake and alert today. But could not able to communicate. Patient does have generalized weakness and lethargic. Able to eat small portion of food. Otherwise patient was started on amiodarone for nonsustained V. tach and cardiology is following. Patient does have right upper extremity weakness. MRI could not be done. Otherwise surgical wound abdominal is healing well. General surgery is following. Patient has been afebrile. Denied any complaints of chest pain or worsening shortness of breath. No nausea vomiting or abdominal pain. Hemodynamically stable and currently on oxygen therapy gradually titrating down to room air. 08/13/2017 Patient is lying in the bed comfortably. Right upper activity weakness is improving. Otherwise patient was able to eat better today. No complaints of abdominal pain. No nausea vomiting. Hemodynamically stable. Planning to discharge to extended care facility. Patient is being continued on antibiotics in the form of Unasyn, can be changed to Ceftin upon discharge as per ID recommendations. No fever no chills. Gen. surgery and pulmonary is following. Complete review of systems could not be obtained from the patient. Active Medications Generic Name Dose Route Start Last Admin Trade Name Freq PRN Reason Stop Dose Admin Acetaminophen 650 mg 08/02/17 01:09 Tylenol Tab PO Q6HR PRN Fever and/ or Pain Acetaminophen 650 mg 08/02/17 22:27 Tylenol Suppository RECTAL Q4HR PRN Fever and/or Mild Pain Albuterol/Ipratropium 3 ml 08/02/17 08:00 08/12/17 20:25 Duoneb 0.5 Mg-3 Mg/3 Ml Soln INHALATION 3 ml RT-QID BRENNA Administration Allopurinol 300 mg 08/02/17 21:00 08/12/17 21:09 Zyloprim PO 300 mg HS BRENNA Administration Amiodarone HCl 400 mg 08/10/17 21:00 08/12/17 21:09 Cordarone PO 400 mg BID BRENNA Administration Amlodipine Besylate 5 mg 08/07/17 21:00 08/12/17 21:09 Norvasc PO 5 mg HS BRENNA Administration Artificial Tears 1 drops 08/07/17 18:59 08/11/17 21:12 Artificial Tear Drops BOTH EYES 1 drops QID PRN Administration Dry Eye(s) Aspirin 81 mg 08/03/17 09:00 08/12/17 08:52 Aspirin PO 81 mg DAILY BRENNA Administration Budesonide/Formoterol Fumarate 2 puff 08/02/17 08:00 08/12/17 20:40 Symbicort 160-4.5 Mcg Inhaler INHALATION Not Given RT-BID BRENNA Enoxaparin Sodium 40 mg 08/02/17 09:00 08/12/17 08:52 Lovenox SQ 40 mg DAILY BRENNA Administration Famotidine 20 mg 08/10/17 21:00 08/12/17 21:09 Pepcid PO 20 mg Q12HR BRENNA Administration Folic Acid 1 each 08/08/17 12:00 08/12/17 13:32 Folbic PO 1 each DAILY@1200 BRENNA Administration Hydralazine HCl 10 mg 08/07/17 14:55 08/09/17 00:21 Apresoline IVP 10 mg Q4HR PRN Administration systolic BP greater than 160 Ampicillin Sodium/Sulbactam 100 mls @ 100 mls/hr 08/04/17 12:15 08/12/17 17: 02 Sodium 3 gm/ Sodium Chloride IVPB 100 mls/hr Q6HR BRENNA Administration Potassium Chloride/Dextrose/Sod Cl 1,000 mls @ 50 mls/hr 08/06/17 12:00 08/12 00:27 D5%-1/2ns-Kcl 20 Meq/L Iv Solution IV 50 mls/hr .Q20H BRENNA Administration Insulin Aspart 0 unit 08/04/17 06:00 08/12/17 18:31 Novolog SQ Not Given Q6H [facility] Protocol Labetalol HCl 20 mg 08/06/17 09:22 08/08/17 18:51 Trandate IVP 20 mg Q4H PRN Administration systolic greater than 160 Lisinopril 5 mg 08/06/17 11:00 08/12/17 08:52 Zestril OG-TUBE 5 mg DAILY BRENNA Administration Lorazepam 2 mg 08/02/17 21:55 08/03/17 23:39 Ativan IV 2 mg Q2HR PRN Administration Sedation Metoclopramide HCl 5 mg 08/07/17 12:00 08/12/17 17:02 Reglan IVP 5 mg Q6HR BRENNA Administration Metoprolol Tartrate 50 mg 08/10/17 09:00 08/12/17 21:09 Lopressor PO 50 mg BID BRENNA Administration Mexiletine HCl 150 mg 08/10/17 09:00 08/12/17 21:10 Mexitil PO 150 mg TID BRENNA Administration Miscellaneous Information 1 each 08/01/17 23:08 Pneumonia Protocol Utilized PO ONCE PRN Per Protocol Miscellaneous Information 1 each 08/06/17 04:22 Magnesium Per Protocol MISCELLANE DAILY PRN Per Protocol Protocol Morphine Sulfate 2 mg 08/02/17 21:55 08/07/17 07:12 Morphine Sulfate (Inj) IVP 2 mg Q2HR PRN Administration Vent compliance Naloxone HCl 0.2 mg 08/02/17 22:27 Narcan IV Q2M PRN Opioid Reversal Spironolactone 25 mg 08/02/17 11:15 08/12/17 08:52 Aldactone PO 25 mg DAILY BRENNA Administration Objective - Vital Signs Vital signs: Vital Signs Temp 97.7 F 08/13/17 11:48 Pulse 80 08/13/17 15:34 Resp 18 08/13/17 11:48 BP 151/83 08/13/17 11:48 Pulse Ox 96 08/13/17 11:48 Intake & Output 08/12/17 08/13/17 08/13/17 18:59 06:59 18:59 Intake Total 735 Output Total 1400 1470 Balance -665 -1470 Weight 110 kg 110 kg Intake: IV 600 0.9 at KVO 100 D5-0.45% NaCl with KCl 500 20Meq/l 1,000 ml @ 50 mls /hr IV .Q20H BRENNA Rx#: [id number] Oral 135 Output: Drainage 75 45 Right Lower Lateral 75 45 Abdomen Urine 1325 1425 Uretheral (Márquez) 1425 Other: Voiding Method Indwelling Catheter Indwelling Catheter Urinal # Voids 2 ABP, PAP, CO, CI - Last Documented Arterial Blood Pressure 158/76 - Exam General : pt is more awake and able to follow simple commands. Patient is able to nod his head but could not able to speak at this time. HEENT: Head is atraumatic, normocephalic. Pupils equal, round. Neck is supple. There is no elevated jugular venous pressure. HEART EXAMINATION: Heart S1-S2, no murmur is heard CHEST EXAMINATION: Lungs reveal no expiratory wheezes throughout otherwise essentially clear. ABDOMEN: Soft, nontender. Bowel sounds are heard. XAVI Drain in place. No organomegaly noted. EXTREMITIES: 2+ peripheral pulses with no evidence of peripheral edema and no calf tenderness noted. NEUROLOGIC patient is awake, alert and oriented 1-2. Right upper extremity weakness is still present. - Labs CBC & Chem 7: 08/13/17 06:17 08/13/17 06:17 Labs: Abnormal Lab Results - Last 24 Hours (Table) 08/12/17 08/12/17 08/13/17 Range/Units 18:30 23:36 05:52 RBC (4.30-5.90) m/uL Hgb (13.0-17.5) gm/dL Hct (39.0-53.0) % MCV (80.0-100.0) fL Glucose (74-99) mg/dL POC Glucose (mg/dL) 117 H 109 H 180 H (75-99) mg/dL 08/13/17 08/13/17 08/13/17 Range/Units 06:17 06:17 11:11 RBC 3.77 L (4.30-5.90) m/uL Hgb 12.2 L (13.0-17.5) gm/dL Hct 38.3 L (39.0-53.0) % MCV 101.4 H (80.0-100.0) fL Glucose 115 H (74-99) mg/dL POC Glucose (mg/dL) 123 H (75-99) mg/dL Assessment and Plan Assessment: -acute delirium possible metabolic encephalopathy and infection. Improving. 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 Improving. MRI could not be done due to surgery -acute cholycystis with E.coli s/p laparocopic cholecystectomy - E. coli septicemia/sepsis likely due to acute purulent cholecystitis -acute resp failure , was on vent , s/p extubation on 08/07/17 -Possible right middle lobe pna . low suspicion - Nonsustained ventricular tachycardia -Normocytic anemia -UTI -Chronic CHF with systolic dysfunction EF 35-40% -HTN -HLP -h/o CAD, s/p stent -Generalized weakness Plan: continue with current management , continue with symptomatic treatment , continue with Unasyn, continue with PT OT. Encourage oral intake. prognosis remains guarded giving his multiple complex medical problems and severity. further recommendations to follow. Time with Patient: Greater than 30
[2017-08-14 06:00] LABS: Glucose,Whole Blood 115 mg/dL (75-99)
[2017-08-14] MEDS: INSULIN ASPART 100 UNIT/ML 1 ML 10 ML VIAL SQ SCH ×2 (06:07→12:21)
[2017-08-14] MEDS: AMPICILLIN-SULBACTAM 3 GM in SODIUM CHLORIDE 0.9% 100 ML IVPB SCH ×2 (06:07→12:22)
[2017-08-14] MEDS: METOCLOPRAMIDE 5 MG/ML 2 ML VIAL IVP SCH ×2 (06:07→12:25)
[2017-08-14 07:19] LABS: HCT 39.3 % (39.0-53.0); HGB 12.8 gm/dL (13.0-17.5); MCH 32.2 pg (25.0-35.0); MCHC 32.4 g/dL (31.0-37.0); MCV 99.2 fL (80.0-100.0); Mean Platelet Volume 8.2; Platelet Count 430 k/uL (150-450); RBC 3.96 m/uL (4.30-5.90); RDW 13.6 % (11.5-15.5); WBC 7.8 k/uL (3.8-10.6)
[2017-08-14 07:39] LABS: Calcium 9.5 mg/dL (8.4-10.2); Phosphorus 3.7 mg/dL (2.5-4.5); Potassium 4.5 mmol/L (3.5-5.1)
[2017-08-14] MEDS: SYMBICORT 160-4.5 MCG INHALER INHALATION SCH (08:19)
[2017-08-14] MEDS: IPRATROPIUM-ALBUTEROL 3 ML NEB INHALATION SCH ×3 (08:19→15:25)
[2017-08-14] MEDS: MEXILETINE 150 MG CAP PO SCH (08:41)
[2017-08-14] MEDS: CYANOCOBALAMIN-FA-PYRIDOXINE 1 EACH TAB PO SCH (08:41)
[2017-08-14] MEDS: ENOXAPARIN 40 MG/0.4 ML SYRINGE SQ SCH (08:42)
[2017-08-14] MEDS: ASPIRIN 81 MG PO SCH (08:42)
[2017-08-14] MEDS: FAMOTIDINE 20 MG TAB PO SCH (08:42)
[2017-08-14] MEDS: LISINOPRIL 5 MG TAB OG-TUBE SCH (08:42)
[2017-08-14] MEDS: SPIRONOLACTONE 25 MG TAB PO SCH (08:42)
[2017-08-14] MEDS: AMIODARONE 200 MG TAB PO SCH (08:42)
[2017-08-14] MEDS: METOPROLOL TARTRATE 50 MG TAB PO SCH (08:43)
[2017-08-14 08:53] VITALS: RESP 16; TEMP 99
--- NOTE | 2017-08-14 10:40 | P.PN ---
Subjective Progress Note Date: 08/14/17 Principal diagnosis: bile leak XAVI output remains serosanguineous in appearance. XAVI output improved about 25 mL 24 hours. Tolerating small amounts of a modified diet. XAVI fluid sent for bilirubin analysis; results pending. CMP not available today. Objective - Vital Signs Vital signs: Vital Signs Temp 99 F 08/14/17 08:52 Pulse 90 08/14/17 08:52 Resp 16 08/14/17 08:52 BP 142/86 08/14/17 08:52 Pulse Ox 92 L 08/14/17 08:52 Intake & Output 08/13/17 08/14/17 08/14/17 18:59 06:59 18:59 Intake Total 120 240 Output Total 2 Balance 120 -2 240 Weight 110 kg 101.5 kg Intake: Oral 120 240 Output: Drainage 2 Right Lower Lateral 2 Abdomen Other: Voiding Method Urinal Urinal Diaper # Voids 1 ABP, PAP, CO, CI - Last Documented Arterial Blood Pressure 158/76 - Exam General appearance: The patient is awake in no acute distress. HET: Head is normocephalic and atraumatic. Pupils are equal and reactive. Oropharynx is clear without lesions. Neck: Supple without lymphadenopathy. Trachea midline. Heart: S1 S2. Regular rate and rhythm. Lungs: No crackles or wheezes are heard. Abdomen: Soft, nontender, nondistended with bowel sounds. XAVI serosanguineous drainage. Dressings clean. No peritoneal signs. No palpable organomegaly or masses. Extremities: Right-sided weakness. - Labs CBC & Chem 7: 08/14/17 07:00 08/14/17 07:00 Labs: Abnormal Lab Results - Last 24 Hours (Table) 08/13/17 08/13/17 08/13/17 Range/Units 11:11 16:46 23:00 RBC (4.30-5.90) m/uL Hgb (13.0-17.5) gm/dL Glucose (74-99) mg/dL POC Glucose (mg/dL) 123 H 111 H 119 H (75-99) mg/dL 08/14/17 08/14/17 08/14/17 Range/Units 05:59 07:00 07:00 RBC 3.96 L (4.30-5.90) m/uL Hgb 12.8 L (13.0-17.5) gm/dL Glucose 117 H (74-99) mg/dL POC Glucose (mg/dL) 115 H (75-99) mg/dL Assessment and Plan (1) Bile leak, postoperative Narrative/Plan: 81-year-old gentleman status post open cholecystectomy with development of postoperative bile leak and ischemic stroke. Bile leak resolving XAVI now producing serosanguineous fluid with mild elevation of transaminases and normal bilirubin as 08/10. Current Visit: Yes Status: Acute Code(s): K91.89 - OTH POSTPROCEDURAL COMPLICATIONS AND DISORDERS OF DGSTV SYS; K83.8 - OTHER SPECIFIED DISEASES OF BILIARY TRACT SNOMED Code(s): 258367787 (2) Sepsis Current Visit: Yes Status: Acute Code(s): A41.9 - SEPSIS, UNSPECIFIED ORGANISM SNOMED Code(s): 76868262 (3) Bacteremia Current Visit: Yes Status: Acute Code(s): R78.81 - BACTEREMIA SNOMED Code( s): 9288573 (4) S/P cholecystectomy Current Visit: Yes Status: Acute Code(s): Z90.49 - ACQUIRED ABSENCE OF OTHER SPECIFIED PARTS OF DIGESTIVE TRACT SNOMED Code(s): 853311955 Plan: 1. Continue to monitor; supportive measures. We'll continue to follow with you. Await XAVI fluid total bilirubin analysis. ERCP tentatively on clinical course. Assessment and plan a care discussed with Dr. Kaba
[2017-08-14 11:33] LABS: Glucose,Whole Blood 143 mg/dL (75-99)
[2017-08-14] MEDS ORDERED: LISINOPRIL 10 MG TAB OG-TUBE SCH (14:15)
--- NOTE | 2017-08-14 15:31 | P.PN ---
Subjective Progress Note Date: 08/14/17 Is is an 81-year-old patient admitted to the hospital with acute cholecystitis, sepsis, and nonsustained ventricular tachycardia. He did not have any further noted runs of V. tach on the monitor. He continues to be on mexiletine and amiodarone. Hemodynamically he is stable. Sodium 137, potassium 4.6, BUN 16, creatinine 1.0. Magnesium 2.0. 08/14/2017 Patient seen and examined this morning, doing well overall, he was up earlier today in the room with therapy, tolerated well. No further episodes of nonsustained VT noted on the monitor, he is having an occasional PVC. We will decrease his amiodarone to 200 mg daily today, continue mexiletine. Objective - Vital Signs Vital signs: Vital Signs Temp 99 F 08/14/17 08:52 Pulse 84 08/14/17 15:27 Resp 16 08/14/17 14:47 BP 130/82 08/14/17 12:00 Pulse Ox 94 L 08/14/17 12:00 Intake & Output 08/13/17 08/14/17 08/14/17 18:59 06:59 18:59 Intake Total 120 360 Output Total 2 160 Balance 120 -2 200 Weight 110 kg 101.5 kg Intake: Oral 120 360 Output: Drainage 2 10 Right Lower Lateral 2 10 Abdomen Urine 150 Other: Voiding Method Urinal Urinal Urinal Diaper Diaper # Voids 1 1 ABP, PAP, CO, CI - Last Documented Arterial Blood Pressure 158/76 - Exam PHYSICAL EXAMINATION: HEENT: Head is atraumatic, normocephalic. Pupils equal, round. Neck is supple. There is no elevated jugular venous pressure. HEART EXAMINATION: Heart S1, S2 normal. No murmur or gallop heard. CHEST EXAMINATION: Lungs reveal bibasilar crackles. ABDOMEN: Soft, nontender. Bowel sounds are heard. No organomegaly noted. EXTREMITIES: 2+ peripheral pulses with no evidence of peripheral edema and no calf tenderness noted. NEUROLOGIC [patient is awake, opens eyes on command. - Labs CBC & Chem 7: 08/14/17 07:00 08/14/17 07:00 Labs: Abnormal Lab Results - Last 24 Hours (Table) 08/13/17 08/13/17 08/14/17 Range/Units 16:46 23:00 05:59 RBC (4.30-5.90) m/uL Hgb (13.0-17.5) gm/dL Glucose (74-99) mg/dL POC Glucose (mg/dL) 111 H 119 H 115 H (75-99) mg/dL 08/14/17 08/14/17 08/14/17 Range/Units 07:00 07:00 11:26 RBC 3.96 L (4.30-5.90) m/uL Hgb 12.8 L (13.0-17.5) gm/dL Glucose 117 H (74-99) mg/dL POC Glucose (mg/dL) 143 H (75-99) mg/dL Assessment and Plan Plan: Assessment and plan #1 symptoms of progressive weakness and fatigue, with associated mild shortness of breath. Chest x-ray shows COPD with cardiomegaly. BNP [id number]. #2 frequent runs of nonsustained ventricular tachycardia #3 known history of coronary artery disease with prior bypass surgery in 1995 #4 hypertension #5 hyperlipidemia #6 diabetes #7 prior history of smoking #8 history of AAA repair #9 febrile illness Plan From cardiology's perspective, we will recommend to continue the amiodarone, we will decrease the dose to 200 mg daily, continue. Patient is not a candidate for AICD. We will follow this patient along with you now on an as-needed basis only, please don't hesitate to call with any questions. DNP note has been reviewed, I agree with a documented findings and plan of care. Patient was seen and examined.
--- NOTE | 2017-08-14 16:02 | P.DS ---
Providers Date of admission: 08/01/17 23:15 Attending physician: Kris Briseno Consults: 08/02/17 04:24 Consult Physician Stat Consulting Provider: Bruno Andrea Consult Reason/Comments: SELECTIVE TRANSFER FOR RUNS OF VTACH Do you want consulting provider notified?: Yes 08/02/17 09:00 Consult Physician Routine Consulting Provider: Grzegorz Wright Consult Reason/Comments: pneumonia Do you want consulting provider notified?: Yes 08/02/17 14:04 Consult Physician Stat Consulting Provider: Rula Graham Consult Reason/Comments: POSITIVE BLOOD CULTURES Do you want consulting provider notified?: Yes 08/02/17 22:33 Consult Physician Stat Consulting Provider: Kris Briseno Consult Reason/Comments: ICU Managment Do you want consulting provider notified?: Already Contacted 08/02/17 23:56 Consult Physician Routine Consulting Provider: Jeramie Hoover Consult Reason/Comments: Surgical, Acute Cholecystitis Do you want consulting provider notified?: Yes, Notify in am 08/06/17 09:46 Consult Physician Routine Consulting Provider: Damon Barrett Consult Reason/Comments: Bile leak, ERCP with stenting Do you want consulting provider notified?: Yes 08/06/17 10:47 Consult Physician Stat Consulting Provider: Klarissa Ovalle Consult Reason/Comments: rigth arm weakness Do you want consulting provider notified?: Yes 08/06/17 15:31 Consult Physician Routine Consulting Provider: Damon Barrett Consult Reason/Comments: possible ERCP and stent Do you want consulting provider notified?: Yes Primary care physician: Alyse Foreman Hospital Course: Acute CHF, acute cholecystitis, acute CVA with right-sided weakness post surgery , with residual flaccid paralysis and episodes of ventriculartachycardia. this is a pleasant 81 yo M admitted with acute sepsis and acute resp failure , was intubated and s/p extubation today 08/07/17. is following the pt closely , ID has been consulted, the pt also was suspicious for weakness of his right upper ext and neurology has been consulted for possible stroke 08/07/17 today pt was extubated when I saw the pt he could open his eyes spontaneously , and follow command , he was not moving his right upper ext and it was in splint , pt could not provide history as he was just extubated , whoever he was noticed to breath comfortabley and not in resp distress 08/08/2017 Patient is a breathing comfortably, he opens his eyes spontaneously he doesn't follow commands as clearly sometimes suite after being the orders and he doesn' t follow all the comments, as per staff his mental status fluctuates, little bit movement in his right upper extremity as per staff, there is less drainage from his due to from 400+ yesterday to 160 mL today 08/11/2017 Patient is lying in the bed comfortable. Otherwise patient is awake alert but could not able to communicate. Patient has been afebrile. Saturating well on nasal cannula. Patient was started on amiodarone and also on antibiotics in the form of Unasyn. Patient is status post cholecystectomy. XAVI drain is in place. Patient had generalized weakness and right upper in the weakness is improving. Patient is being continued on PT OT. MRI of the brain could not be done due to surgical stables. Otherwise patient has a febrile. Able to nod his abdomen but could not able to speak. Patient was able to finish only 20% of the meal. 08/12/2017 Patient seems to be more awake and alert today. But could not able to communicate. Patient does have generalized weakness and lethargic. Able to eat small portion of food. Otherwise patient was started on amiodarone for nonsustained V. tach and cardiology is following. Patient does have right upper extremity weakness. MRI could not be done. Otherwise surgical wound abdominal is healing well. General surgery is following. Patient has been afebrile. Denied any complaints of chest pain or worsening shortness of breath. No nausea vomiting or abdominal pain. Hemodynamically stable and currently on oxygen therapy gradually titrating down to room air. 08/13/2017 Patient is lying in the bed comfortably. Right upper activity weakness is improving. Otherwise patient was able to eat better today. No complaints of abdominal pain. No nausea vomiting. Hemodynamically stable. Planning to discharge to extended care facility. Patient is being continued on antibiotics in the form of Unasyn, can be changed to Ceftin upon discharge as per ID recommendations. No fever no chills. Gen. surgery and pulmonary is following. 08/14/2017 Patient has some improvement in right upper extremity weakness. Patient is quite weak will need subacute rehabilitation. Patient is being discharged to subacute rehab patient still has right-sided surgical drain in place, which will be removed after his follow-up with surgery in about a week. General : pt is more awake and able to follow simple commands. Patient is able to nod his head but could not able to speak at this time. HEENT: Head is atraumatic, normocephalic. Pupils equal, round. Neck is supple. There is no elevated jugular venous pressure. HEART EXAMINATION: Heart S1-S2, no murmur is heard CHEST EXAMINATION: Lungs reveal no expiratory wheezes throughout otherwise essentially clear. ABDOMEN: Soft, nontender. Bowel sounds are heard. XAVI Drain in place. No organomegaly noted. EXTREMITIES: 2+ peripheral pulses with no evidence of peripheral edema and no calf tenderness noted. NEUROLOGIC patient is awake, alert and oriented 1-2. Right upper extremity weakness is still present. Assessment and Plan Assessment: -acute delirium possible metabolic encephalopathy and infection. Improving. - Acute CVA with left-sided weakness especially left upper extremity postsurgery. Improving. MRI could not be done due to surgery -acute cholycystis with E.coli s/p laparocopic cholecystectomy - E. coli septicemia/sepsis likely due to acute purulent cholecystitis, pansensitive E. coli and will be discharged on Augmentin -acute resp failure , was on vent , s/p extubation on 08/07/17 -Possible right middle lobe pna . low suspicion - Nonsustained ventricular tachycardia, patient will be discharged on amiodarone metoprolol and mexiletine -Normocytic anemia -UTI -Chronic CHF with systolic dysfunction EF 35-40%, euvolemic at this time. Not on Lasix is not requiring Lasix, is on all that tone and lisinopril which will be continued -HTN -HLP -h/o CAD, s/p stent -Generalized weakness Patient Condition at Discharge: Fair Plan - Discharge Summary Discharge Rx Participant: Yes New Discharge Prescriptions: New Amoxic-Pot Clav 875-125Mg [Augmentin 875-125] 1 tab PO Q12HR #14 tablet Acetaminophen Tab [Tylenol] 650 mg PO Q6HR PRN tab PRN Reason: Fever And/ Or Pain Amiodarone [Cordarone] 200 mg PO DAILY tab Famotidine [Pepcid] 20 mg PO Q12HR tab Ipratropium-Albuterol Nebulize [Duoneb 0.5 mg-3 mg/3 ml Soln] 3 ml INHALATION RT-QID PRN ampul.neb PRN Reason: Wheezing Lisinopril [Zestril] 10 mg OG-TUBE DAILY tab Metoprolol Tartrate [Lopressor] 50 mg PO BID tab Mexiletine [Mexitil] 150 mg PO TID cap Spironolactone [Aldactone] 25 mg PO DAILY tab Aspirin 81 mg PO DAILY #30 chewable Atorvastatin [Lipitor] 40 mg PO HS #30 tablet Continue Tamsulosin HCl [Flomax] 0.4 mg PO HS Budesonide/Formoterol Fumarate [Symbicort 160-4.5 Mcg Inhaler] 2 puff INHALATION RT-BID Dipyridamole-Aspirin 200-25 mg [Aggrenox 25MG -200MG] 1 tab PO BID Allopurinol [Zyloprim] 300 mg PO HS Discontinued amLODIPine [Norvasc] 5 mg PO HS Atenolol 25 mg PO BID Discharge Medication List Allopurinol [Zyloprim] 300 mg PO HS 08/30/16 [History] Budesonide/Formoterol Fumarate [Symbicort 160-4.5 Mcg Inhaler] 2 puff INHALATION RT-BID 08/30/16 [History] Dipyridamole-Aspirin 200-25 mg [Aggrenox 25MG -200MG] 1 tab PO BID 08/30/16 [ History] Tamsulosin HCl [Flomax] 0.4 mg PO HS 08/30/16 [History] Amoxic-Pot Clav 875-125Mg [Augmentin 875-125] 1 tab PO Q12HR #14 tablet [Rx] Acetaminophen Tab [Tylenol] 650 mg PO Q6HR PRN tab 08/14/17 [Rx] Amiodarone [Cordarone] 200 mg PO DAILY tab 08/14/17 [Rx] Aspirin 81 mg PO DAILY #30 chewable 08/14/17 [Rx] Atorvastatin [Lipitor] 40 mg PO HS #30 tablet 08/14/17 [Rx] Famotidine [Pepcid] 20 mg PO Q12HR tab 08/14/17 [Rx] Ipratropium-Albuterol Nebulize [Duoneb 0.5 mg-3 mg/3 ml Soln] 3 ml INHALATION RT -QID PRN ampul.neb 08/14/17 [Rx] Lisinopril [Zestril] 10 mg OG-TUBE DAILY tab 08/14/17 [Rx] Metoprolol Tartrate [Lopressor] 50 mg PO BID tab 08/14/17 [Rx] Mexiletine [Mexitil] 150 mg PO TID cap 08/14/17 [Rx] Spironolactone [Aldactone] 25 mg PO DAILY tab 08/14/17 [Rx] Follow up Appointment(s)/Referral(s): Grzegorz Wright MD [STAFF PHYSICIAN] - 1 Week Alyse Foreman MD [Primary Care Provider] - 1-2 days Discharge Disposition: TRANSFER TO SNF/ECF
[2017-08-14 16:31] LABS: Glucose,Whole Blood 144 mg/dL (75-99)
[2017-08-14 16:53] VITALS: BP 130/63; PULSE 83
--- NOTE | 2017-08-14 20:08 | PN ---
PROGRESS NOTE DATE OF SERVICE: 08/14/2017 REASON FOR FOLLOWUP: E coli bacteremia secondary to acute cholecystitis. INTERVAL HISTORY: The patient was seen on rounds this morning. The patient has been afebrile. He was breathing comfortably, more awake and alert. He denied having any chest pain or any cough. No abdominal pain or any diarrhea. PHYSICAL EXAMINATION: Blood pressure 130/63 with a pulse of 83, temperature of 98. He is 92% on room air. General description is an elderly male lying in bed in no distress. RESPIRATORY SYSTEM: Unlabored breathing. Clear to auscultation anteriorly. HEART: S1, S2. Regular rate and rhythm. ABDOMEN: Soft. No tenderness. LABS: Hemoglobin is 12.8, white count 7.8. BUN of 18, creatinine 0.99. DIAGNOSTIC IMPRESSION AND PLAN: Patient with Escherichia coli bacteremia secondary to acute cholecystitis, status post open cholecystectomy. Follow-up blood cultures have been negative. He will finish therapy with oral Augmentin for about 5 days. Family was present at the bedside. Their questions were answered. MMODL / EVGENYN: [id number] /
[2017-08-15] MEDS ORDERED: AMIODARONE 200 MG TAB PO SCH (09:00)
--- NOTE | 2017-08-15 13:29 | P.PN ---
Subjective Progress Note Date: 08/14/17 Principal diagnosis: TIA/acute CVA, altered mental status, generalized weakness and medical debility , Uncontrolled malignant hypertension, right hemiparesis, Acute cholecystitis, empyema gallbladder Gram-negative sepsis and bacteremia, severe degree of ischemic cardiomyopathy with ejection fraction of 35%, acute on chronic systolic heart failure, coronary artery disease, 08/14/2017, patient seen eval examined during the round he is awake and alert breathing comfortably he remains on supplemental oxygen family is present at bedside, patient has limited mobility on the right upper extremity and right lower extremity but has been intermittently moving it patient undergoing active physical therapy has expressed her desire to be discharged to extended care facility for rehabilitation purposes, patient has been tolerating oral diet very well labs reviewed medications reviewed 08/13/2017, patient seen and evaluated examined during the rounds he is at room air breathing comfortably he has some movement in the right upper extremity noted family is present bedside including and Ramona care plan discussed with the patient at length patient and expressed at the time of discharge they would like patient to be at [facility], which is closer to their [facility] labs and medications reviewed 08/12/2017, patient seen and evaluated examined during the rounds he is relatively more awake able to communicate no obvious respiratory distress present hemodynamic status stable blood pressure and more stable patient is being moved out of the ICU today to [facility] care, medications reviewed laboratory data reviewed, chest x-ray continue show bibasilar atelectasis and cardiomegaly, family is present at bedside 08/11/2017, patient seen eval reexamined during the rounds clinically overall not much change is still weak right upper extremity, from Estrace standpoint doing well breathing comfortably on supplemental oxygen hemodynamic status stable but continued intermittent runs of PVCs patient is on oral amiodarone's well is on broad-spectrum antibiotics labs reviewed medications reviewed, patient has been tolerating by mouth with nutritional status remains compromised , remains extremely weak not ready for transfer out of ICU 08/10/2017, patient seen eval reexamined during the rounds clinically patient has been doing relatively better in terms of the eye contact intermittently following commands but remains very confused patient has the intermittent weakness now the right upper extremity is more weaker, MRI couldn't be performed due to presence of clip, labs reviewed medications reviewed today's chest x-ray reviewed as well, patient has been tolerating modified diet fairly well 08/09/2017, patient seen eval reexamined during the rounds he is successfully extubated is slightly more awake and alert he is moving his all 4 extremity is still weaker on the right side though, patient is being followed by general surgery and GI as well output is improved through the [facility], patient has been tolerating by mouth modified diet labs reviewed medications reviewed radiographic studies reviewed as well, request PT OT to evaluate, x-ray not performed today, labs reviewed, patient is for MRI of the brain later on today due to runs of ventricular tachycardia has been started on amiodarone and is still on IV amiodarone MRI to be performed once patient comes off of the amiodarone drip. 08/08/2017, patient seen eval examined during the rounds he is been off of respirator for over 24 hours breathing comfortably he is on supplemental oxygen he is been intermittently moving his right upper extremity mostly awake but has intermittent episodes of confusion family is present at bedside, patient able to swallow applesauce with pills, chest x-ray laboratory data reviewed small bilateral pleural effusion likely related to intra-abdominal processes as well as baseline cardiomyopathy 08/07/2017, patient seen eval examined during the rounds he has been on SIMV rate of 8 breathing about 16-18, FiO2 is down to 40%, patient has been placed on CPAP 5 pressure support of 5 on which she was monitor observe for over an hour and arterial blood gases reviewed weaning parameters reviewed as well patient is a 50 more awake and makes her better eye contact some movement 1/5 in right upper extremity has been noted, chest x-ray reviewed laboratory data reviewed as well care plan discussed with the primary service and nursing staff at length and family present at bedside patient was switched to CPAP 5 pressure support of 5 and spontaneous tidal volume were and 500 range with respiratory rate and high teens to low 20s no obvious respirator distress presents slight elevation in blood pressure was however noted likely related to stress of weaning, overall blood pressure is very well controlled with current intervention, patient required 2 doses of morphine overnight otherwise remains off of sedation, as per recommendation of GI services patient will probably require ERCP once extubated 08/06/2017, patient seen eval examined during the rounds patient has been taking off of sedation has been off of propofol for over an hour however noted to have slow rise in blood pressure Coreg dose has been escalated to double the dose patient is awake with a blank stare has been moving left upper and lower extremity fairly well some movement and right lower extremity is present but cannot move right upper extremity, patient has been placed on CPAP of 5 and pressure support of 5 which she tolerated fairly well but still arterial blood gases suggestive of significant hypoxemia, chest x-ray reviewed right lower lobe pneumonia improved with a small pleural effusion, laboratory data reviewed as well care plan discussed with surgical services nursing staff and patient's at length critical care time spent 45 minutes 08/05/2017, patient seen eval reexamined during the rounds currently patient remains on full ventilator support with the assist control mode sed rate is 18 breathing 18, tidal volume is 550, 8 of PEEP, FiO2 is down to 40% patient remains on propofol drip which is gradually being titrated down as per plans for sedation holiday, labs reviewed medications reviewed care plan discussed with the surgical services patient is to be started on tube feed as per their recommendation, telemetry revealed presence of intermittent episodes of the nonsustained ventricular tachycardia as well as multiple PVCs patient has been on beta blockers and calcium channel blockers which were discontinued due to severe hypotension as blood pressure has been stabilized now and going up towards we'll resume those medications likely they will help those PVCs as well. We will defer cardiovascular services for initiation or maintenance of amiodarone. Patient is making adequate urine, chest x-ray laboratory data and medications reviewed noted repeat blood cultures have been negative so far ROM of white cell count is normalize arterial blood gases are adequate chest x-ray reviewed note is made of the NG tube improve aeration noted bilateral bases 08/04/2017, patient seen eval examined during the rounds patient remains sedated with propofol drip attempts to wean oxygen down has been unsuccessful overnight however able to bring down the oxygen to 40% from 50% PEEP has been lowered from 10-8, patient is now taken off a few fed drip ventilator setting is stable but the patient continued to manifest respiratory acidosis vent setting include assist control rate of 18 and tidal volume of 500 PEEP of 1060% oxygen respiratory rate is 12 he is calm arousable opens eyes follow simple commands family is present at the bedside care plan discussed with the family at length in light of severe degree of ischemic cardiomyopathy and very low ejection fraction patient will be kept on respirator for another 24-48 hours and slowly will be weaned, propofol is 15 mics, patient is getting Accu-Cheks with relatively stable sugars, currently patient is on D5 half normal saline 20 K meq of KCl with 100 mL an hour. Chest x-ray from this morning reviewed basal atelectasis and right-sided effusion and right lower lobe consolidation is seen , operative findings reviewed empyema gallbladder noted with severe acute cholecystitis culture reviewed my E. coli is sensitive to Unasyn 01/2018, patient seen and evaluated examined in the ICU this patient has been admitted into the hospital with generalized weakness syncope intermittent runs of V. tach with baseline history of severe degree of cardiomyopathy ischemic in nature with ejection fraction just 30-35% patient has a patchy infiltrate on the right side is being treated for pneumonia and sepsis, around 9 PM patient had episode of increasing shortness of breath increases abdominal pain a computed tomography scan of the abdominal and pelvis revealed presence of cholecystitis, general surgery has been consulted patient continued to increase respiratory distress eventually brought into the ICU where he was intubated patient was initially hypertensive however postintubation has episode of hypertension and earlier this morning required fluid resuscitation he did receive Lasix with some urine output yesterday currently Lasix is being held at it appears that patient is somewhat volume depleted culture results and reports are reviewed patient is growing gram-negative rods in the blood likely source being ascending cholangitis versus urinary tract infection with first being more likely urine culture however is pending urinalysis suggestive of inflammatory processes though. His ventilator settings reviewed currently patient is on assist control rate of 18 breathing 22 he is on tidal volume of 500, PEEP is 10 and FiO2 was initially 100% and gradually titrated down to 60% his lactic acid level was mildly elevated pro calcitonin was elevated to, currently patient is on amiodarone map is around 65-70 he is also on propofol 15 mics normal saline KVO amiodarone drip as 0.5 mg/m, patient is well sedated with current ventilator setting and sedation and also being treated with broad- spectrum antibiotics with IV Zosyn his medications are reviewed given that hypertension is present antihypertensive agents are being held, patient will need IV axis but triple-lumen catheter as well as and A-line consent are being obtained 81-year-old male with history of ischemic cardiomyopathy ejection fraction of 30 -35% has not been feeling well for the last 2-3 week with increasing shortness of breath patient does have a history of chronic lower extremity edema with a history of coronary artery disease status post CABG back in 1995. Patient for the last 2 weeks has not been feeling well has been more short of breath than usual has dry nonproductive cough as well which is intermittent off and on due to progressive increasing shortness of breath lately has been feeling weak as well with some intermittent episodes of dizziness lightheadedness patient came into the emergency department he did spike a fever up to 102, over his white cell count were normal chest x-ray showed borderline cardiomegaly and some early infiltrate in the right midlung field cannot be excluded. Patient about 2 weeks ago had a recent fall however he never lost his consciousness no seizure -like activity was seen patient appears to have developed nondisplaced left 10th rib fracture as seen on the rib x-rays. On arrival patient appeared to be in acute exacerbation of CHF likely acute on chronic systolic heart failure with elevated BNP of over 1800, in addition to above patient had echocardiogram which revealed ejection fraction 30% with inferior basal hypokinesia, patient also noted to have intermittent runs of PVCs and has been placed on IV amiodarone, this requestioning patient denies any chest pain or radiation of pain denies any sputum production denies any night sweats fever or chills he denies any seizure-like activity he did have intermittent dizziness usually turning around. He denies any bowel or bladder dysfunction he has chronic lower extremity trace edema. Objective - Vital Signs Vital signs: Vital Signs Temp 99 F 08/14/17 08:52 Pulse 83 08/14/17 16:00 Resp 16 08/14/17 16:00 BP 130/63 08/14/17 16:00 Pulse Ox 92 L 08/14/17 16:00 Intake & Output 08/14/17 08/15/17 08/15/17 18:59 06:59 18:59 Intake Total 360 Output Total 160 Balance 200 Intake: Oral 360 Output: Drainage 10 Right Lower Lateral 10 Abdomen Urine 150 Other: Voiding Method Urinal Diaper # Voids 1 ABP, PAP, CO, CI - Last Documented Arterial Blood Pressure 158/76 - Exam - Constitutional General appearance: average body habitus, awake and opens eyes follow simple commands- EENT Eyes: EOMI, PERRLA, normal appearance ENT: hard of hearing Ears: bilateral: normal - Neck Neck: normal ROM Carotids: right: bruit absent, bilateral: upstroke normal Thyroid: bilateral: normal size - Respiratory Respiratory: bilateral: CTA, few basal crackles bilaterally are present - Cardiovascular Heart sounds: normal: S1 and S2 no gallop rub or murmur - Gastrointestinal General gastrointestinal: Normal to hypoactive bowel sounds, soft - Integumentary Integumentary: normal, normal turgor - Neurologic More awake follows simple commands intermittently moving all 4 extremity was noted to have more strength in right upper extremity previously however lately he is not moving it- Musculoskeletal Musculoskeletal: Well developed, week right upper extremity but intermittently moving all 4 extremity more weaker on the right side - Psychiatric Psychiatric: Unable to assess - Labs CBC & Chem 7: 08/14/17 07:00 08/14/17 07:00 Labs: Abnormal Lab Results - Last 24 Hours (Table) 08/14/17 Range/Units 16:21 POC Glucose (mg/dL) 144 H (75-99) mg/dL Assessment and Plan Assessment: Right upper extremity weakness evaluated for left hemispheric stroke likely TIA , patient appears to be recovering with 2 negative computed tomography scan of the head, MRI of the brain cannot be performed due to presence of clips at cholecystectomy site Intermittent runs of nonsustained ventricular tachycardia and multiple PVCs with stable electrolytes likely related to ischemic cardiomyopathy, on oral amiodarone Severe sepsis and septic shock related to gram-negative bacteremia related to empyema bladder Empyema gallbladder Acute cholangitis and gram-negative bacteremia Acute cholecystitis Early developing pneumonia in right lower lobe with effusion Acute hypoxic and hypercapnic respirator failure multifactorial related to above Acute exacerbation of CHF likely acute on chronic systolic heart failure with ejection fraction of 30-35% Status post fall with left 10th rib fracture Coronary artery disease and ischemic cardiomyopathy Intermittent episodes of PVCs and arrhythmia, patient is on amiodarone currently History of BPH Dyslipidemia hypertension hypertensive cardiovascular disease Plan: Continue physical therapy and supportive care, agree with discharge planning will follow on outpatient setting Improved nutritional status as tolerated Continue Coreg, oral amiodarone monitor labs closely Reviewed neurology recommendations Patient is spontaneously breathing with adequate oxygenation Medicine adjusted Continued DVT and peptic ulcer disease prophylaxis Electrolyte replacement as tolerated Broad-spectrum antibiotics Breathing treatment Reviewed urine and blood culture results and report Optimize cardiovascular therapy Repeat labs tomorrow Physical therapy increase activity as tolerated Plans for ERCP on hold for now PTOT evaluation increase activity as tolerated Discussed with, nursing staff, patient's at length Time with Patient: Greater than 30
== END 2017-08-14 18:24 | DRG 853 ==
LOC: EC 22:38 → 3SUR 23:15 → 6SEL 08-02 05:55 → 6ICU 08-02 21:00 → 6SEL 08-12 16:36
PROVIDERS: ADMIT Hospitalist; ATTEND Hospitalist
PROC: 03HY32Z Insertion of Monitoring Device into Upper Artery, Percutaneous Approach (ICD-10-PCS; 2017-08-03)
PROC: 4A133J1 Monitoring of Arterial Pulse, Peripheral, Percutaneous Approach (ICD-10-PCS; 2017-08-03)
PROC: 05HM33Z Insertion of Infusion Device into Right Internal Jugular Vein, Percutaneous Approach (ICD-10-PCS; 2017-08-03)
PROC: 4A133B1 Monitoring of Arterial Pressure, Peripheral, Percutaneous Approach (ICD-10-PCS; 2017-08-03)
PROC: 0FJ44ZZ Inspection of Gallbladder, Percutaneous Endoscopic Approach (ICD-10-PCS; principal; 2017-08-03 14:00)
PROC: 0FT40ZZ Resection of Gallbladder, Open Approach (ICD-10-PCS; principal; 2017-08-03 14:00)
DX: A41.51 Sepsis due to Escherichia coli [E. coli] (principal); I50.23 Acute on chronic systolic (congestive) heart failure; I63.9 Cerebral infarction, unspecified; J18.9 Pneumonia, unspecified organism; R65.21 Severe sepsis with septic shock; J96.01 Acute respiratory failure with hypoxia; G93.41 Metabolic encephalopathy; J96.02 Acute respiratory failure with hypercapnia; S22.32XA Fracture of one rib, left side, initial encounter for closed fracture; E87.2 Acidosis; G81.94 Hemiplegia, unspecified affecting left nondominant side; I47.2 Ventricular tachycardia; J44.0 Chronic obstructive pulmonary disease with (acute) lower respiratory infection; K81.0 Acute cholecystitis; K83.0 Cholangitis; K91.89 Other postprocedural complications and disorders of digestive system; N39.0 Urinary tract infection, site not specified; D63.8 Anemia in other chronic diseases classified elsewhere; D69.6 Thrombocytopenia, unspecified; E11.9 Type 2 diabetes mellitus without complications; E78.5 Hyperlipidemia, unspecified; E86.9 Volume depletion, unspecified; I11.0 Hypertensive heart disease with heart failure; I25.2 Old myocardial infarction; I25.10 Atherosclerotic heart disease of native coronary artery without angina pectoris; I25.5 Ischemic cardiomyopathy; I48.91 Unspecified atrial fibrillation; I49.3 Ventricular premature depolarization; K66.0 Peritoneal adhesions (postprocedural) (postinfection); N40.0 Benign prostatic hyperplasia without lower urinary tract symptoms; Y83.8 Other surgical procedures as the cause of abnormal reaction of the patient, or of later complication, without mention of misadventure at the time of the procedure; Z79.4 Long term (current) use of insulin; Z79.51 Long term (current) use of inhaled steroids; Z79.82 Long term (current) use of aspirin; Z79.899 Other long term (current) drug therapy; Z82.49 Family history of ischemic heart disease and other diseases of the circulatory system; Z86.79 Personal history of other diseases of the circulatory system; Z87.442 Personal history of urinary calculi; Z87.891 Personal history of nicotine dependence; Z95.1 Presence of aortocoronary bypass graft; Z95.5 Presence of coronary angioplasty implant and graft; Z96.642 Presence of left artificial hip joint; Z88.1 Allergy status to other antibiotic agents; Z53.31 Laparoscopic surgical procedure converted to open procedure
CPT/HCPCS: 36415; 36600; 70450; 71045; 74176; 80048; 80053; 80061; 81001; 82247; 82805; 83036; 83090; 83605; 83735; 83880; 84100; 84145; 85025; 85027; 85379; 85610; 85730; 87040; 87070; 87075; 87077; 87086; 87186; 87205; 87502; 88304; 93005; 93306; 93880; 94002; 94003; 94640; 94660; 94760; 95819; 96365; 99285

== ENCOUNTER → 2017-08-01 | Outpatient (CLI) | payer BC ==
--- NOTE | 2017-08-01 10:18 | XR ---
EXAMINATION TYPE: XR ribs LT w pa chest xray DATE OF EXAM: 08/01/2017 COMPARISON: NONE HISTORY: Left rib pain TECHNIQUE: Frontal view of the chest and 5 views of the left ribs are submitted. FINDINGS: Frontal view of the chest and straight atherosclerotic change aorta, postsurgical changes, cardiomegaly, hyperinflation suggestive of COPD, and chronic appearing rib deformities involving the right rib cage. No sizable pneumothorax, consolidation or pleural effusion. Linear change at the left lung base most typical of atelectasis. There is a slight cortical offset involving the anterolateral left 10th rib. IMPRESSION: 1. Findings compatible with a minimally displaced fracture anterolateral left 10th rib. 2. COPD.
== END | disposition home or self-care (01) ==
LOC: RADXRYALE 09:45
PROVIDERS: ATTEND Internal Medicine
DX: J44.9 Chronic obstructive pulmonary disease, unspecified (principal); R07.81 Pleurodynia

== ENCOUNTER 2018-05-17 16:31 | Emergency (ER) | payer BC, MEDICARE ==
[2018-05-17] MEDS ORDERED: SODIUM CHLORIDE 0.9% 1,000 ML IV STA (17:00)
[2018-05-17] MEDS ORDERED: SODIUM CHLORIDE 0.9% 500 ML 500 ML IV STA (17:00)
--- NOTE | 2018-05-17 17:09 | ED ---
Abdominal Pain HPI - General Stated Complaint: Rectal bleeding Time Seen by Provider: 05/17/18 16:44 - History of Present Illness Initial Comments: Patient is an 82-year-old male presenting for abdominal discomfort. The patient states that he has not had a bowel movement since Sunday or of last week. He states that he is also having difficulty urinating but he was able to urinate this morning. He states that the abdominal discomfort feels a, fairly constant abdominal cramping the lower portion of his abdomen that started earlier today. He denies any fevers or chills or nausea/vomiting. He also states that he had his gallbladder removed in August of last year and has had surgery in his abdomen for a "cardiac aneurysm" - Related Data Home Medications Medication Instructions Recorded Confirmed Allopurinol [Zyloprim] 300 mg PO HS 08/30/16 05/17/18 Budesonide/Formoterol Fumarate 2 puff INHALATION RT-BID 08/30/16 05/17/18 [Symbicort 160-4.5 Mcg Inhaler] Dipyridamole-Aspirin 200-25 mg 1 tab PO BID 08/30/16 05/17/18 [Aggrenox 25MG -200MG] Tamsulosin HCl [Flomax] 0.4 mg PO BID 08/30/16 05/17/18 Albuterol Inhaler [Ventolin Hfa 2 puff INHALATION RT-Q6H PRN 05/17/18 05/17/18 Inhaler] Lisinopril [Zestril] 10 mg PO DAILY 05/17/18 05/17/18 Ranitidine HCl [Zantac] 150 mg PO HS 05/17/18 05/17/18 Previous Rx's Medication Instructions Recorded Atorvastatin [Lipitor] 40 mg PO HS #30 tablet 08/14/17 Metoprolol Tartrate [Lopressor] 50 mg PO BID tab 08/14/17 Spironolactone [Aldactone] 25 mg PO DAILY tab 08/14/17 Sulfamethox-Tmp 800-160Mg [Bactrim 1 tab PO Q12HR 7 Days #14 tab 05/17/18 DS 800-160 mg] Allergies Allergy/AdvReac Type Severity Reaction Status Date / Time cephalexin [From Keflex] Allergy Rash/Hives Verified 05/17/18 17:01 ciprofloxacin [From Cipro] Allergy Rash/Hives Verified 05/17/18 17:01 Review of Systems ROS Statement: Those systems with pertinent positive or pertinent negative responses have been documented in the HPI. Constitutional: Negative for chills, fatigue and fever. HENT: Negative for congestion. Respiratory: Negative for chest tightness, shortness of breath and wheezing. Negative for cough Cardiovascular: Negative for chest pain and palpitations. Gastrointestinal: Positive for abdominal pain. Negative for abdominal distention , diarrhea, nausea and vomiting. Positive for constipation Genitourinary: Negative for dysuria. Musculoskeletal: Negative for back pain, neck pain and neck stiffness. Skin: Negative for color change. Neurological: Negative for dizziness, speech difficulty, weakness and light- headedness. Psychiatric/Behavioral: Negative for agitation and confusion. Negative for anxiety ROS Other: All systems not noted in ROS Statement are negative. Past Medical History Past Medical History: Chest Pain / Angina, Heart Failure, CVA/TIA, Hyperlipidemia, Hypertension, Myocardial Infarction ([place]), Osteoarthritis (OA), Prostate Disorder Additional Past Medical History / Comment(s): kidney stones, gout,tia 2005, mi 1987 and 1988, IN PAST TOOK MEDS FOR DM-NO LONGER TAKES MEDS OR CHECKS BS. Last Myocardial Infarction Date:: 1988 History of Any Multi-Drug Resistant Organisms: None Reported Past Surgical History: Coronary Bypass/CABG, Heart Catheterization With Stent, Tonsillectomy Additional Past Surgical History / Comment(s): left hip replacement 2009,lt inguinal hernia repair, cystocopy,turp,quad cabg 1995 had heart cath w/ stent after cabg,aaa reapir 2000, dianne cataracts, lt hand sx (revison of amp lt thumb) , kidney stones removed, vasectomy. Past Anesthesia/Blood Transfusion Reactions: No Reported Reaction Date of Last Stent Placement:: unk Past Psychological History: No Psychological Hx Reported Additional Psychological History / Comment(s): pt lives with his jose in a single story home that has 1 step to enter. pt uses a 4 wheeled seated walker to get around. no steps in home. no home care services recieved. served in the [employer] when younger. 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 Smoking Status: Former smoker Past Alcohol Use History: Occasional Additional Past Alcohol Use History / Comment(s): smoked for 40 years 2ppd, quit 1977 Past Drug Use History: None Reported - Past Family History Mother Family Medical History: Myocardial Infarction ([place]) Father Family Medical History: Myocardial Infarction ([place]) General Exam - General Exam Comments Initial Comments: Constitutional: Pt appears well-developed and well-nourished. No distress. Head: Normocephalic and atraumatic. Eyes: EOM are normal. Neck: Normal range of motion. Neck supple. Cardiovascular: Normal rate, regular rhythm, S1 normal, S2 normal and normal heart sounds. Exam reveals no gallop and no friction rub. No murmur heard. Pulmonary/Chest: Effort normal and breath sounds normal. No tachypnea and no bradypnea. No respiratory distress. No wheezes or rales noted. Abdominal: Soft. Bowel sounds are normal. Pt exhibits no shifting dullness, no distension, no pulsatile liver, no fluid wave, no abdominal bruit and no ascites. There is no rigidity, no rebound, no guarding, no tenderness at McBurney's point and negative Kruger's sign. There is mild suprapubic tenderness Musculoskeletal: Normal range of motion. Neurological: Pt is alert and oriented to person, place, and time. No cranial nerve deficit. Skin: Skin is warm and dry. No rash noted. Pt is not diaphoretic. No erythema. No pallor. Psychiatric: Pt has a normal mood and affect. Pt behavior is normal. Thought content normal. Course Vital Signs 05/17/18 05/17/18 05/17/18 17:01 19:41 20:50 Temperature 98.0 F 98.7 F 98.5 F Pulse Rate 73 70 Respiratory 16 18 Rate Blood Pressure 166/85 157/96 O2 Sat by Pulse 96 95 Oximetry 05/17/18 21:52 Temperature 98.1 F Pulse Rate 61 Respiratory 18 Rate Blood Pressure 134/77 O2 Sat by Pulse 95 Oximetry Medical Decision Making - Medical Decision Making Auditory studies showed that there is no significant leukocytosis and hemoglobin was stable at 13.9. There was no significant rash light derangements nor was her acute kidney injury. From a cardiac standpoint, BNP was mildly elevated at 1020 but there was no overt signs of CHF or respiratory distress and therefore was thought that the patient did not need to be admitted for this. However, there appears to be urinary retention as the patient had greater than 300 mL and therefore Márquez catheter was placed. Urinalysis is also consistent with urinary tract infection and therefore the patient was given a prescription for Bactrim. 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 It also showed that there was retained fecal matter the rectum measuring 7.5 cm. Digital rectal exam revealed that there was no stool needing disimpaction and option of enema versus in-home therapy of laxatives was given to the family as well as the patient and all parties elected to attempt bowel movements at home with the oral medication. Patient was given lactulose, Dulcolax and magnesium citrate and advised to use this with caution as this could result in significant diarrhea. They express understanding and were advised to follow-up with PCP in next 1-2 days and/or return to ER if the symptoms worsen. In regards to the urinary retention, Márquez catheter was placed and patient was advised follow-up with urology for trial void. - Lab Data Result diagrams: 05/17/18 17:21 05/17/18 17:21 Lab Results 05/17/18 05/17/18 05/17/18 Range/Units 17:21 17:21 17:21 WBC 8.2 (3.8-10.6) k/uL RBC 3.96 L (4.30-5.90) m/uL Hgb 13.9 (13.0-17.5) gm/dL Hct 43.1 (39.0-53.0) % MCV 108.7 H (80.0-100.0) fL MCH 35.0 (25.0-35.0) pg MCHC 32.2 (31.0-37.0) g/dL RDW 14.4 (11.5-15.5) % Plt Count 121 L (150-450) k/uL Neutrophils % 82 % Lymphocytes % 13 % Monocytes % 4 % Eosinophils % 1 % Basophils % 0 % Neutrophils # 6.7 (1.3-7.7) k/uL Lymphocytes # 1.1 (1.0-4.8) k/uL Monocytes # 0.3 (0-1.0) k/uL Eosinophils # 0.1 (0-0.7) k/uL Basophils # 0.0 (0-0.2) k/uL Manual Slide Review Performed Large Platelets Present Polychromasia Present Macrocytosis Marked Sodium 142 (137-145) mmol/L Potassium 4.9 (3.5-5.1) mmol/L Chloride 111 H (98-107) mmol/L Carbon Dioxide 24 (22-30) mmol/L Anion Gap 7 mmol/L BUN 25 H (9-20) mg/dL Creatinine 1.31 H (0.66-1.25) mg/dL Est GFR (CKD-EPI)AfAm 58 (>60 ml/min/1.73 sqM) Est GFR (CKD-EPI)NonAf 50 (>60 ml/min/1.73 sqM) Glucose 116 H (74-99) mg/dL Plasma Lactic Acid Javad 1.1 (0.7-2.0) mmol/L Calcium 9.5 (8.4-10.2) mg/dL Total Bilirubin 0.6 (0.2-1.3) mg/dL AST 20 (17-59) U/L ALT 34 (21-72) U/L Alkaline Phosphatase 90 (38-126) U/L Troponin I (0.000-0.034) ng/mL NT-Pro-B Natriuret Pep pg/mL Total Protein 6.6 (6.3-8.2) g/dL Albumin 4.0 (3.5-5.0) g/dL Lipase 117 (23-300) U/L Urine Color Urine Appearance (Clear) Urine pH (5.0-8.0) Ur Specific [place] (1.001-1.035) Urine Protein (Negative) Urine Glucose (UA) (Negative) Urine Ketones (Negative) Urine Blood (Negative) Urine Nitrite (Negative) Urine Bilirubin (Negative) Urine Urobilinogen (<2.0) mg/dL Ur Leukocyte Esterase (Negative) Urine RBC (0-5) /hpf Urine WBC (0-5) /hpf Urine WBC Clumps (None) /hpf Urine Bacteria (None) /hpf 05/17/18 05/17/18 05/17/18 Range/Units 17:21 17:21 18:00 WBC (3.8-10.6) k/uL RBC (4.30-5.90) m/uL Hgb (13.0-17.5) gm/dL Hct (39.0-53.0) % MCV (80.0-100.0) fL MCH (25.0-35.0) pg MCHC (31.0-37.0) g/dL RDW (11.5-15.5) % Plt Count (150-450) k/uL Neutrophils % % Lymphocytes % % Monocytes % % Eosinophils % % Basophils % % Neutrophils # (1.3-7.7) k/uL Lymphocytes # (1.0-4.8) k/uL Monocytes # (0-1.0) k/uL Eosinophils # (0-0.7) k/uL Basophils # (0-0.2) k/uL Manual Slide Review Large Platelets Polychromasia Macrocytosis Sodium (137-145) mmol/L Potassium (3.5-5.1) mmol/L Chloride (98-107) mmol/L Carbon Dioxide (22-30) mmol/L Anion Gap mmol/L BUN (9-20) mg/dL Creatinine (0.66-1.25) mg/dL Est GFR (CKD-EPI)AfAm (>60 ml/min/1.73 sqM) Est GFR (CKD-EPI)NonAf (>60 ml/min/1.73 sqM) Glucose (74-99) mg/dL Plasma Lactic Acid Javad (0.7-2.0) mmol/L Calcium (8.4-10.2) mg/dL Total Bilirubin (0.2-1.3) mg/dL AST (17-59) U/L ALT (21-72) U/L Alkaline Phosphatase (38-126) U/L Troponin I <0.012 (0.000-0.034) ng/mL NT-Pro-B Natriuret Pep 1020 pg/mL Total Protein (6.3-8.2) g/dL Albumin (3.5-5.0) g/dL Lipase (23-300) U/L Urine Color Yellow Urine Appearance Turbid (Clear) Urine pH 5.5 (5.0-8.0) Ur Specific [place] 1.016 (1.001-1.035) Urine Protein 1+ H (Negative) Urine Glucose (UA) Negative (Negative) Urine Ketones Negative (Negative) Urine Blood Large H (Negative) Urine Nitrite Negative (Negative) Urine Bilirubin Negative (Negative) Urine Urobilinogen <2.0 (<2.0) mg/dL Ur Leukocyte Esterase Large H (Negative) Urine RBC >182 H (0-5) /hpf Urine WBC >182 H (0-5) /hpf Urine WBC Clumps Many H (None) /hpf Urine Bacteria Many H (None) /hpf 05/17/18 19:02 EKG shows normal sinus rhythm with a rate of 61, RI interval 178, QRS 128, QTC 457. There is less than [address] depression in V6 with no other significant ST depressions. Disposition Clinical Impression: Constipation, Aneurysm, Urinary retention, UTI (urinary tract infection) Disposition: HOME SELF-CARE Condition: Good Instructions (If sedation given, give patient instructions): Constipation (ED) Prescriptions: Sulfamethox-Tmp 800-160Mg [Bactrim DS 800-160 mg] 1 tab PO Q12HR 7 Days #14 tab Is patient prescribed a controlled substance at d/c from ED?: No Referrals: Alyse Foreman MD [Primary Care Provider] - 1-2 days Mario Yo MD [STAFF PHYSICIAN] - 1-2 days Time of Disposition: 21:22
[2018-05-17 17:39] LABS: Basophils % (A) 0 %; Eosinophils # (A) 0.1 k/uL (0-0.7); Eosinophils % (A) 1 %; HCT 43.1 % (39.0-53.0); HGB 13.9 gm/dL (13.0-17.5); Lymphocytes # (A) 1.1 k/uL (1.0-4.8); Lymphocytes % (A) 13 %; MCHC 32.2 g/dL (31.0-37.0); MCV 108.7 fL (80.0-100.0); Macrocytosis Marked; Mean Platelet Volume 8.5; Monocytes # (A) 0.3 k/uL (0-1.0); Monocytes % (A) 4 %; Neutrophils # (A) 6.7 k/uL (1.3-7.7); Neutrophils % (A) 82 %; Platelet Count 121 k/uL (150-450); RBC 3.96 m/uL (4.30-5.90); RDW 14.4 % (11.5-15.5); WBC 8.2 k/uL (3.8-10.6)
[2018-05-17 17:59] LABS: Calcium 9.5 mg/dL (8.4-10.2); Potassium 4.9 mmol/L (3.5-5.1); Total Bilirubin 0.6 mg/dL (0.2-1.3); Total Protein 6.6 g/dL (6.3-8.2)
[2018-05-17 18:27] LABS: Large Platelets Present; Polychromasia Present
[2018-05-17 18:51] LABS: Appearance,Urine Turbid (Clear); Bacteria,Urine Many /hpf; Bilirubin,Urine Negative (Negative); Blood,Urine Large (Negative); Color,Urine Yellow; Glucose,Urine (UA) Negative (Negative); Ketones,Urine Negative (Negative); Leukocyte Esterase,Urine Large (Negative); Nitrite,Urine Negative (Negative); PH, Urine 5.5 (5.0-8.0); Protein,Urine 1+ (Negative); RBC,Urine >182 /hpf (0-5); Specific Gravity,Urine 1.016 (1.001-1.035); Urobilinogen,Urine <2.0 mg/dL (<2.0); WBC,Urine >182 /hpf (0-5)
--- NOTE | 2018-05-17 19:36 | CT ---
EXAMINATION TYPE: CT abdomen pelvis w con DATE OF EXAM: 05/17/2018 COMPARISON: 08/02/2017 HISTORY: abdominal pain, rectal bleed CT DLP: 1486.9 mGycm Automated exposure control for dose reduction was used. TECHNIQUE: Helical acquisition of images was performed from the lung bases through the pelvis. CONTRAST: Performed without Oral Contrast and with IV Contrast, patient injected with 80 mL of Isovue 300. FINDINGS: Lung bases are clear of consolidation. There is no pericardial effusion. There are small hiatal herni a. There is no pleural effusion. There are clips from cholecystectomy. Liver shows no focal defect. B ile ducts are not dilated. Spleen appears normal. The stomach has normal size. There is no evidence o f a pancreatic mass. There is atherosclerotic vascular calcification. There is no adrenal mass. Kidneys show satisfactory contrast opacification. There is no hydronephrosi s. Ureters are not dilated. There is no retroperitoneal adenopathy. There is small umbilical hernia t hat contains fat. There is retained fecal material in the rectum that measures 7.5 cm. There is Márquez catheter in the urinary bladder. Bladder is empty. There is no inguinal hernia. There is no free flu id in the pelvis. There is no mesenteric edema. There is no sign of free air. There is left hip prost hesis noted. There are spondylotic changes in the lumbar spine. I see no bony destructive process. There is no com pression fracture. There is 3.2 cm aneurysm of the abdominal aorta. IMPRESSION: ATHEROSCLEROTIC VASCULAR DISEASE. NONOBSTRUCTING RENAL CALCULI UNCHANGED. 3.2 CM ABDOMINAL AORTIC ANE URYSM NOT SIGNIFICANTLY DIFFERENT THAN LAST EXAM. RECTAL FECAL IMPACTION. This appears new compared to old CT scan.
--- NOTE | 2018-05-17 20:04 | XR ---
Abdomen single view. History abdominal pain rectal bleeding. Comparison none. Findings new There is no sign of intestinal obstruction or pneumoperitoneum. There is contrast in the renal collec ting systems. There are no pathologic definite calcifications. There are clips from cholecystectomy. Lung bases are clear of consolidation. IMPRESSION: Nonacute abdomen.
[2018-05-17 20:51] VITALS: RESP 18
[2018-05-17] MEDS ORDERED: LACTULOSE 20 GM/30 ML CUP PO ONE (21:20)
[2018-05-17] MEDS ORDERED: MAGNESIUM CITRATE 296 ML BOTTLE PO ONE (21:20)
[2018-05-17] MEDS ORDERED: BISACODYL 10 MG SUPP RECTAL STA (21:20)
[2018-05-17 21:53] VITALS: BP 134/77; PULSE 61; TEMP 98.1
== END 2018-05-17 22:17 | disposition home or self-care (01) ==
LOC: EC 16:31
DX: N39.0 Urinary tract infection, site not specified (principal); K59.00 Constipation, unspecified; R94.31 Abnormal electrocardiogram [ECG] [EKG]; R33.9 Retention of urine, unspecified; I71.4 Abdominal aortic aneurysm, without rupture; R79.89 Other specified abnormal findings of blood chemistry; I11.0 Hypertensive heart disease with heart failure; I50.9 Heart failure, unspecified; I25.2 Old myocardial infarction; M10.9 Gout, unspecified; N42.9 Disorder of prostate, unspecified; Z87.891 Personal history of nicotine dependence; Z88.1 Allergy status to other antibiotic agents; Z79.51 Long term (current) use of inhaled steroids; Z79.82 Long term (current) use of aspirin; Z79.899 Other long term (current) drug therapy; Z86.73 Personal history of transient ischemic attack (TIA), and cerebral infarction without residual deficits; Z87.442 Personal history of urinary calculi; Z95.1 Presence of aortocoronary bypass graft; Z95.5 Presence of coronary angioplasty implant and graft; Z96.642 Presence of left artificial hip joint; Z98.890 Other specified postprocedural states; Z98.52 Vasectomy status; Z82.49 Family history of ischemic heart disease and other diseases of the circulatory system
CPT/HCPCS: 36415; 83880; 80053; 83605; 83690; 84484; 85025; 81001; 87086; 74018; 74177; 99284; 51702; Q9967; 87077; 87186

== ENCOUNTER 2019-09-25 20:49 | Emergency (ER) | payer MEDICARE, BC ==
[2019-09-25 21:21] VITALS: TEMP 98.1
--- NOTE | 2019-09-25 21:59 | XR ---
EXAMINATION TYPE: XR chest 2V DATE OF EXAM: 09/25/2019 COMPARISON: 08/12/2017 HISTORY: Shortness of breath TECHNIQUE: Frontal and lateral views of the chest are obtained. FINDINGS: Scattered senescent parenchymal changes noted. Hyperinflation compatible with COPD. No evidence for infiltrate. No evidence for atelectasis. Heart size is stable. Mediastinal structures are stable and grossly unremarkable. No evidence for hilar prominence. Degenerative changes dorsal spine. IMPRESSION: 1. No evidence for acute pulmonary disease.
[2019-09-25 22:32] LABS: Basophils % (A) 0 %; Eosinophils # (A) 0.1 k/uL (0-0.7); Eosinophils % (A) 2 %; HCT 44.6 % (39.0-53.0); Lymphocytes # (A) 1.8 k/uL (1.0-4.8); Lymphocytes % (A) 29 %; MCH 33.2 pg (25.0-35.0); MCHC 31.5 g/dL (31.0-37.0); MCV 105.4 fL (80.0-100.0); Macrocytosis Moderate; Monocytes # (A) 0.3 k/uL (0-1.0); Monocytes % (A) 5 %; Neutrophils # (A) 3.8 k/uL (1.3-7.7); Neutrophils % (A) 62 %; Platelet Count 137 k/uL (150-450); RBC 4.23 m/uL (4.30-5.90); WBC 6.2 k/uL (3.8-10.6)
[2019-09-25 22:35] LABS: Albumin 3.9 g/dL (3.5-5.0); Calcium 9.4 mg/dL (8.4-10.2); Potassium 4.2 mmol/L (3.5-5.1); Total Bilirubin 0.5 mg/dL (0.2-1.3); Total Protein 6.6 g/dL (6.3-8.2)
[2019-09-25 22:47] VITALS: BP 160/87; PULSE 79; RESP 18
--- NOTE | 2019-09-26 00:01 | ED ---
Recheck HPI - General Chief Complaint: Recheck/Abnormal Lab/Rx Stated Complaint: Heart failure Time Seen by Provider: 09/25/19 21:29 Source: patient, family Mode of arrival: wheelchair Limitations: no limitations - History of Present Illness Initial Comments: Patient is an 84-year-old male, with multiple comorbidities including COPD, heart disease, presenting to the emergency department with complaints of possible heart failure. Patient states he went to urgent care prior to the ER with complaints of a sore throat and a cough and then they told him to come to the ER because they were worried he was in heart failure because he had swelling in both his lower legs. Patient states the swelling is not usually as bad as it is. He states that his cough has been increasing over the past week as well as a sore throat. He states he feels like the sore throat is making him having trouble swallowing. He denies any chest pain. He does admit to mild shortness of breath. He denies any recent fever, chills, abdominal pain, nausea, vomiting. He states he was recently treated for left lower leg cellulitis. He denies any other changes in medications. He has no further complaints at this time. Upon arrival to the ER, his vital signs are stable. - Related Data Home Medications Medication Instructions Recorded Confirmed RX: Allopurinol [Zyloprim] 300 mg PO HS 08/30/16 09/25/19 RX: Budesonide/Formoterol Fumarate 2 puff INHALATION RT-BID 08/30/16 09/25/19 [Symbicort 160-4.5 Mcg Inhaler] RX: Dipyridamole-Aspirin 200-25 mg 2 tab PO HS 08/30/16 09/25/19 [Aggrenox 25MG -200MG] RX: Tamsulosin HCl [Flomax] 0.8 mg PO HS 08/30/16 09/25/19 RX: Metoprolol Tartrate 12.5 mg PO HS 09/25/19 09/25/19 Previous Rx's Medication Instructions Recorded Atorvastatin [Lipitor] 40 mg PO HS #30 tablet 08/14/17 Allergies Allergy/AdvReac Type Severity Reaction Status Date / Time cephalexin [From Keflex] Allergy Rash/Hives Verified 09/25/19 21:20 ciprofloxacin [From Cipro] Allergy Rash/Hives Verified 09/25/19 21:20 Review of Systems ROS Statement: Those systems with pertinent positive or pertinent negative responses have been documented in the HPI. ROS Other: All systems not noted in ROS Statement are negative. Past Medical History Past Medical History: Chest Pain / Angina, Heart Failure, CVA/TIA, Hyperlipidemia, Hypertension, Myocardial Infarction ([place]), Osteoarthritis (OA), Prostate Disorder Additional Past Medical History / Comment(s): kidney stones, gout,tia 2005, mi 1987 and 1988, IN PAST TOOK MEDS FOR DM-NO LONGER TAKES MEDS OR CHECKS BS. Last Myocardial Infarction Date:: 1988 History of Any Multi-Drug Resistant Organisms: None Reported Past Surgical History: Coronary Bypass/CABG, Heart Catheterization With Stent, Tonsillectomy Additional Past Surgical History / Comment(s): left hip replacement 2009,lt inguinal hernia repair, cystocopy,turp,quad cabg 1995 had heart cath w/ stent after cabg,aaa reapir 2000, dianne cataracts, lt hand sx (revison of amp lt thumb), kidney stones removed, vasectomy. Past Anesthesia/Blood Transfusion Reactions: No Reported Reaction Date of Last Stent Placement:: unk Past Psychological History: No Psychological Hx Reported Smoking Status: Former smoker Past Alcohol Use History: Occasional Past Drug Use History: None Reported - Past Family History Mother Family Medical History: Myocardial Infarction ([place]) Father Family Medical History: Myocardial Infarction ([place]) General Exam - General Exam Comments Initial Comments: GENERAL: Well-appearing, well-nourished and in no acute distress. HEAD: Atraumatic, normocephalic. EYES: Pupils equal round and reactive to light, extraocular movements intact, sclera anicteric, conjunctiva are normal. ENT: TMs normal, nares patent, oropharynx mildly erythematous, no exudate. Moist mucous membranes. NECK: Normal range of motion, supple without lymphadenopathy or JVD. LUNGS: Breath sounds clear to auscultation bilaterally and equal. No wheezes rales or rhonchi. HEART: Regular rate and rhythm without murmurs, rubs or gallops. ABDOMEN: Soft, nontender, normoactive bowel sounds. No guarding, no rebound. No masses appreciated. : Deferred EXTREMITIES: Bilateral lower leg pitting edema, some mild erythema of the left lower leg. He is neurovascular intact. Normal range of motion. No clubbing or cyanosis. NEUROLOGICAL: Cranial nerves II through XII grossly intact. Normal speech, normal gait. PSYCH: Normal mood, normal affect. SKIN: Warm, Dry, normal turgor, no rashes. Limitations: no limitations Course Vital Signs 09/25/19 09/25/19 21:15 22:15 Temperature 98.1 F Pulse Rate 90 79 Respiratory 20 18 Rate Blood Pressure 138/81 160/87 O2 Sat by Pulse 97 96 Oximetry Medical Decision Making - Medical Decision Making Patient is an 84-year-old male here with history of COPD, heart disease presenting after being sent in by urgent care for possible heart failure. His main complaint was a sore throat, no chest pain, mild increase in shortness of breath. EKG had nonspecific changes, similar to previous EKG. Lab work is unremarkable, troponin was 0.019, BNP was 1000 which is stable for the patient. Strep was negative. Chest x-ray showed no acute findings. I discussed with patient that given his recent history of lower leg edema, cough, shortness of breath and his troponin, I recommend admission so cardiology can evaluate the patient. Patient adamantly refused to be admitted. He states he will follow-up with his regular doctor. I discussed return parameters with the patient and the patient's son and they both verbalized understanding. Patient will be discharged. Case discussed with Dr. Bright. - Lab Data Result diagrams: 09/25/19 22:15 09/25/19 22:15 Lab Results 09/25/19 09/25/19 09/25/19 Range/Units 22:15 22:15 22:15 WBC 6.2 (3.8-10.6) k/uL RBC 4.23 L (4.30-5.90) m/uL Hgb 14.0 (13.0-17.5) gm/dL Hct 44.6 (39.0-53.0) % MCV 105.4 H (80.0-100.0) fL MCH 33.2 (25.0-35.0) pg MCHC 31.5 (31.0-37.0) g/dL RDW 14.0 (11.5-15.5) % Plt Count 137 L (150-450) k/uL Neutrophils % 62 % Lymphocytes % 29 % Monocytes % 5 % Eosinophils % 2 % Basophils % 0 % Neutrophils # 3.8 (1.3-7.7) k/uL Lymphocytes # 1.8 (1.0-4.8) k/uL Monocytes # 0.3 (0-1.0) k/uL Eosinophils # 0.1 (0-0.7) k/uL Basophils # 0.0 (0-0.2) k/uL Macrocytosis Moderate PT 10.0 (9.0-12.0) sec INR 1.0 (<1.2) APTT 24.0 (22.0-30.0) sec Sodium 139 (137-145) mmol/L Potassium 4.2 (3.5-5.1) mmol/L Chloride 105 (98-107) mmol/L Carbon Dioxide 25 (22-30) mmol/L Anion Gap 9 mmol/L BUN 20 (9-20) mg/dL Creatinine 1.09 (0.66-1.25) mg/dL Est GFR (CKD-EPI)AfAm 71 (>60 ml/min/1.73 sqM) Est GFR (CKD-EPI)NonAf 62 (>60 ml/min/1.73 sqM) Glucose 108 H (74-99) mg/dL Plasma Lactic Acid Javad (0.7-2.0) mmol/L Calcium 9.4 (8.4-10.2) mg/dL Magnesium 2.0 (1.6-2.3) mg/dL Total Bilirubin 0.5 (0.2-1.3) mg/dL AST 23 (17-59) U/L ALT 14 (4-49) U/L Alkaline Phosphatase 119 (38-126) U/L Troponin I (0.000-0.034) ng/mL NT-Pro-B Natriuret Pep pg/mL Total Protein 6.6 (6.3-8.2) g/dL Albumin 3.9 (3.5-5.0) g/dL Group A Strep Rapid (Negative) 09/25/19 09/25/19 09/25/19 Range/Units 22:15 22:15 22:15 WBC (3.8-10.6) k/uL RBC (4.30-5.90) m/uL Hgb (13.0-17.5) gm/dL Hct (39.0-53.0) % MCV (80.0-100.0) fL MCH (25.0-35.0) pg MCHC (31.0-37.0) g/dL RDW (11.5-15.5) % Plt Count (150-450) k/uL Neutrophils % % Lymphocytes % % Monocytes % % Eosinophils % % Basophils % % Neutrophils # (1.3-7.7) k/uL Lymphocytes # (1.0-4.8) k/uL Monocytes # (0-1.0) k/uL Eosinophils # (0-0.7) k/uL Basophils # (0-0.2) k/uL Macrocytosis PT (9.0-12.0) sec INR (<1.2) APTT (22.0-30.0) sec Sodium (137-145) mmol/L Potassium (3.5-5.1) mmol/L Chloride (98-107) mmol/L Carbon Dioxide (22-30) mmol/L Anion Gap mmol/L BUN (9-20) mg/dL Creatinine (0.66-1.25) mg/dL Est GFR (CKD-EPI)AfAm (>60 ml/min/1.73 sqM) Est GFR (CKD-EPI)NonAf (>60 ml/min/1.73 sqM) Glucose (74-99) mg/dL Plasma Lactic Acid Javad 1.1 (0.7-2.0) mmol/L Calcium (8.4-10.2) mg/dL Magnesium (1.6-2.3) mg/dL Total Bilirubin (0.2-1.3) mg/dL AST (17-59) U/L ALT (4-49) U/L Alkaline Phosphatase (38-126) U/L Troponin I 0.019 (0.000-0.034) ng/mL NT-Pro-B Natriuret Pep 1000 pg/mL Total Protein (6.3-8.2) g/dL Albumin (3.5-5.0) g/dL Group A Strep Rapid (Negative) 09/25/19 Range/Units 22:15 WBC (3.8-10.6) k/uL RBC (4.30-5.90) m/uL Hgb (13.0-17.5) gm/dL Hct (39.0-53.0) % MCV (80.0-100.0) fL MCH (25.0-35.0) pg MCHC (31.0-37.0) g/dL RDW (11.5-15.5) % Plt Count (150-450) k/uL Neutrophils % % Lymphocytes % % Monocytes % % Eosinophils % % Basophils % % Neutrophils # (1.3-7.7) k/uL Lymphocytes # (1.0-4.8) k/uL Monocytes # (0-1.0) k/uL Eosinophils # (0-0.7) k/uL Basophils # (0-0.2) k/uL Macrocytosis PT (9.0-12.0) sec INR (<1.2) APTT (22.0-30.0) sec Sodium (137-145) mmol/L Potassium (3.5-5.1) mmol/L Chloride (98-107) mmol/L Carbon Dioxide (22-30) mmol/L Anion Gap mmol/L BUN (9-20) mg/dL Creatinine (0.66-1.25) mg/dL Est GFR (CKD-EPI)AfAm (>60 ml/min/1.73 sqM) Est GFR (CKD-EPI)NonAf (>60 ml/min/1.73 sqM) Glucose (74-99) mg/dL Plasma Lactic Acid Javad (0.7-2.0) mmol/L Calcium (8.4-10.2) mg/dL Magnesium (1.6-2.3) mg/dL Total Bilirubin (0.2-1.3) mg/dL AST (17-59) U/L ALT (4-49) U/L Alkaline Phosphatase (38-126) U/L Troponin I (0.000-0.034) ng/mL NT-Pro-B Natriuret Pep pg/mL Total Protein (6.3-8.2) g/dL Albumin (3.5-5.0) g/dL Group A Strep Rapid Negative (Negative) - EKG Data EKG Comments: EKG shows sinus rhythm with occasional PVC. Right BBB, T-wave abnormalities, no signs of acute ischemia, similar to previous EKG on 05/17/2018. Ventricular rate 89, OR interval 184, QT 426. Disposition Clinical Impression: Bilateral lower extremity edema, Sore throat (viral), Cough Disposition: HOME SELF-CARE Condition: Stable Instructions (If sedation given, give patient instructions): Viral Syndrome (ED) Additional Instructions: Please return to the Emergency Department if symptoms worsen or any other concerns. I strongly recommend follow-up with PCP as well as dish room worker for recent symptoms. May take Tylenol for sore throat as well as throat lozenges. Is patient prescribed a controlled substance at d/c from ED?: No Referrals: Alyse Foreman MD [Primary Care Provider] - 1-2 days
== END 2019-09-26 00:39 | disposition home or self-care (01) ==
LOC: EC 20:49
DX: J02.9 Acute pharyngitis, unspecified (principal); J44.9 Chronic obstructive pulmonary disease, unspecified; I50.9 Heart failure, unspecified; M10.9 Gout, unspecified; I11.0 Hypertensive heart disease with heart failure; I20.9 Angina pectoris, unspecified; N42.9 Disorder of prostate, unspecified; I25.2 Old myocardial infarction; Z79.51 Long term (current) use of inhaled steroids; Z79.899 Other long term (current) drug therapy; Z95.1 Presence of aortocoronary bypass graft; Z95.5 Presence of coronary angioplasty implant and graft; Z96.642 Presence of left artificial hip joint; Z87.891 Personal history of nicotine dependence
CPT/HCPCS: 71046; 80053; 83605; 83735; 83880; 84484; 85025; 85610; 85730; 87081; 87430; 93005; 99284

== ENCOUNTER → 2019-12-31 | Outpatient (CLI) | payer BC | END | disposition home or self-care (01) | LOC: LABWHC1 10:54 | PROVIDERS: ATTEND Internal Medicine | DX: R05 Cough (principal); Z20.828 Contact with and (suspected) exposure to other viral communicable diseases | CPT/HCPCS: U0003; C9803 ==

== ENCOUNTER 2021-01-25 01:40 | Inpatient (IN) | payer MEDICARE, BC ==
[2021-01-25] MEDS ORDERED: ONDANSETRON 4 MG/2 ML VIAL IVP STA (01:56)
[2021-01-25] MEDS ORDERED: SODIUM CHLORIDE 0.9% 1,000 ML IV STA (01:56)
--- NOTE | 2021-01-25 01:57 | ED ---
Weakness HPI - General Stated complaint: Nausea/vomiting Time Seen by Provider: 01/25/21 01:48 Source: RN notes reviewed, old records reviewed Mode of arrival: EMS Limitations: no limitations - History of Present Illness Initial comments: This is a 85-year-old male to the emergency room today. Patient presents today for evaluation regards to nausea vomiting weakness not feeling well some shortness of breath with cough congestion denying fever. MD Complaint: generalized weakness -: days(s) Location: generalized Severity: moderate Severity scale (1-10): 7 Consistency: constant Improves with: none Worsens with: none Context: recent illness, history of similar Associated Symptoms: loss of appetite, nausea/vomiting - Related Data Home Medications Medication Instructions Recorded Confirmed Budesonide/Formoterol Fumarate 2 puff INHALATION RT-BID 08/30/16 09/25/19 [Symbicort 160-4.5 Mcg Inhaler] Dipyridamole-Aspirin 200-25 mg 2 tab PO HS 08/30/16 09/25/19 [Aggrenox 25MG -200MG] Tamsulosin HCl [Flomax] 0.8 mg PO HS 08/30/16 09/25/19 allopurinoL [Zyloprim] 300 mg PO HS 08/30/16 09/25/19 Metoprolol Tartrate 12.5 mg PO HS 09/25/19 09/25/19 Previous Rx's Medication Instructions Recorded Atorvastatin [Lipitor] 40 mg PO HS #30 tablet 08/14/17 Allergies Allergy/AdvReac Type Severity Reaction Status Date / Time cephalexin [From Keflex] Allergy Rash/Hives Verified 01/25/21 02:00 ciprofloxacin [From Cipro] Allergy Rash/Hives Verified 01/25/21 02:00 Review of Systems ROS Statement: Those systems with pertinent positive or pertinent negative responses have been documented in the HPI. ROS Other: All systems not noted in ROS Statement are negative. Past Medical History Past Medical History: Chest Pain / Angina, Heart Failure, CVA/TIA, Hyperlipidemia, Hypertension, Myocardial Infarction ([place]), Osteoarthritis ([place]), Prostate Disorder Additional Past Medical History / Comment(s): kidney stones, gout,tia 2005, mi 1987 and 1988, IN PAST TOOK MEDS FOR DM-NO LONGER TAKES MEDS OR CHECKS BS. Last Myocardial Infarction Date:: 1988 History of Any Multi-Drug Resistant Organisms: None Reported Past Surgical History: Coronary Bypass/CABG, Heart Catheterization With Stent, Tonsillectomy Additional Past Surgical History / Comment(s): left hip replacement 2009,lt inguinal hernia repair, cystocopy,turp,quad cabg 1995 had heart cath w/ stent after cabg,aaa reapir 2000, dianne cataracts, lt hand sx (revison of amp lt thumb), kidney stones removed, vasectomy. Past Anesthesia/Blood Transfusion Reactions: No Reported Reaction Date of Last Stent Placement:: unk Past Psychological History: No Psychological Hx Reported Past Alcohol Use History: Occasional Past Drug Use History: None Reported - Past Family History Mother Family Medical History: Myocardial Infarction ([place]) Father Family Medical History: Myocardial Infarction ([place]) General Exam General appearance: alert, in no apparent distress Head exam: Present: atraumatic, normocephalic, normal inspection Eye exam: Present: normal appearance, PERRL, EOMI. Absent: scleral icterus, conjunctival injection, periorbital swelling ENT exam: Present: normal exam, mucous membranes moist Neck exam: Present: normal inspection. Absent: tenderness, meningismus, lymphadenopathy Respiratory exam: Present: normal lung sounds bilaterally. Absent: respiratory distress, wheezes, rales, rhonchi, stridor Cardiovascular Exam: Present: regular rate, normal rhythm, normal heart sounds. Absent: systolic murmur, diastolic murmur, rubs, gallop, clicks GI/Abdominal exam: Present: soft, normal bowel sounds. Absent: distended, tenderness, guarding, rebound, rigid Extremities exam: Present: normal inspection, full ROM, normal capillary refill. Absent: tenderness, pedal edema, joint swelling, calf tenderness Back exam: Present: normal inspection Neurological exam: Present: alert, oriented X3, CN II-XII intact Psychiatric exam: Present: normal affect, normal mood Skin exam: Present: warm, dry, intact, normal color. Absent: rash Course Vital Signs 01/25/21 01:50 Temperature 97.6 F Pulse Rate 98 Respiratory 16 Rate Blood Pressure 166/99 O2 Sat by Pulse 94 L Oximetry - Reevaluation(s) Reevaluation #1: 01/25/21 01:57 Medical record is reviewed Reevaluation #2: 01/25/21 03:54 Patient symptoms are significantly improved here in the ER Reevaluation #3: 01/25/21 03:54 He is informed of results and questions have been answered - Consultations Consultation #1: Spoke with [facility] we'll admit this patient EKG Findings - EKG Comments: EKG Findings:: EKG is sinus rhythm 97 PA 1:30 QRS 148 QTc 541 Medical Decision Making - Medical Decision Making 85 male to the emergency department with nausea vomiting patient does have elevated troponin from prior baseline. A she'll also has urinary tract infection dehydration. [place] for patient for fluid resuscitation symptom management IV antibiotics and cardiology to evaluate - Lab Data Result diagrams: 01/25/21 02:24 01/25/21 02:24 Lab Results 01/25/21 01/25/21 01/25/21 Range/Units 02:24 02:24 02:24 WBC 6.3 (3.8-10.6) k/uL RBC 3.99 L (4.30-5.90) m/uL Hgb 13.8 (13.0-17.5) gm/dL Hct 42.5 (39.0-53.0) % MCV 106.5 H (80.0-100.0) fL MCH 34.5 (25.0-35.0) pg MCHC 32.4 (31.0-37.0) g/dL RDW 14.4 (11.5-15.5) % Plt Count 143 L (150-450) k/uL MPV 8.8 Neutrophils % 79 % Lymphocytes % 16 % Monocytes % 3 % Eosinophils % 1 % Basophils % 0 % Neutrophils # 5.0 (1.3-7.7) k/uL Lymphocytes # 1.0 (1.0-4.8) k/uL Monocytes # 0.2 (0-1.0) k/uL Eosinophils # 0.1 (0-0.7) k/uL Basophils # 0.0 (0-0.2) k/uL Macrocytosis Moderate PT 10.6 (9.0-12.0) sec INR 1.0 (<1.2) APTT 22.3 (22.0-30.0) sec Sodium (137-145) mmol/L Potassium (3.5-5.1) mmol/L Chloride (98-107) mmol/L Carbon Dioxide (22-30) mmol/L Anion Gap mmol/L BUN (9-20) mg/dL Creatinine (0.66-1.25) mg/dL Est GFR (CKD-EPI)AfAm (>60 ml/min/1.73 sqM) Est GFR (CKD-EPI)NonAf (>60 ml/min/1.73 sqM) Glucose (74-99) mg/dL Plasma Lactic Acid Javad (0.7-2.0) mmol/L Calcium (8.4-10.2) mg/dL Phosphorus (2.5-4.5) mg/dL Magnesium (1.6-2.3) mg/dL Total Bilirubin (0.2-1.3) mg/dL AST (17-59) U/L ALT (4-49) U/L Alkaline Phosphatase (38-126) U/L Lactate Dehydrogenase (313-618) U/L Troponin I (0.000-0.034) ng/mL C-Reactive Protein (<1.0) mg/dL Total Protein (6.3-8.2) g/dL Albumin (3.5-5.0) g/dL Urine Color Light Yellow Urine Appearance Cloudy (Clear) Urine pH 6.0 (5.0-8.0) Ur Specific [place] 1.013 (1.001-1.035) Urine Protein 1+ H (Negative) Urine Glucose (UA) Negative (Negative) Urine Ketones Negative (Negative) Urine Blood Small H (Negative) Urine Nitrite Negative (Negative) Urine Bilirubin Negative (Negative) Urine Urobilinogen <2.0 (<2.0) mg/dL Ur Leukocyte Esterase Large H (Negative) Urine RBC 18 H (0-5) /hpf Urine WBC >182 H (0-5) /hpf Urine WBC Clumps Few H (None) /hpf Ur Squamous Epith Cells <1 (0-4) /hpf Urine Mucus Rare H (None) /hpf Coronavirus (PCR) (Not Detectd) 01/25/21 01/25/21 01/25/21 Range/Units 02:24 02:24 02:24 WBC (3.8-10.6) k/uL RBC (4.30-5.90) m/uL Hgb (13.0-17.5) gm/dL Hct (39.0-53.0) % MCV (80.0-100.0) fL MCH (25.0-35.0) pg MCHC (31.0-37.0) g/dL RDW (11.5-15.5) % Plt Count (150-450) k/uL MPV Neutrophils % % Lymphocytes % % Monocytes % % Eosinophils % % Basophils % % Neutrophils # (1.3-7.7) k/uL Lymphocytes # (1.0-4.8) k/uL Monocytes # (0-1.0) k/uL Eosinophils # (0-0.7) k/uL Basophils # (0-0.2) k/uL Macrocytosis PT (9.0-12.0) sec INR (<1.2) APTT (22.0-30.0) sec Sodium 137 (137-145) mmol/L Potassium 4.1 (3.5-5.1) mmol/L Chloride 105 (98-107) mmol/L Carbon Dioxide 25 (22-30) mmol/L Anion Gap 7 mmol/L BUN 20 (9-20) mg/dL Creatinine 0.98 (0.66-1.25) mg/dL Est GFR (CKD-EPI)AfAm 81 (>60 ml/min/1.73 sqM) Est GFR (CKD-EPI)NonAf 70 (>60 ml/min/1.73 sqM) Glucose 143 H (74-99) mg/dL Plasma Lactic Acid Javad 1.3 (0.7-2.0) mmol/L Calcium 9.1 (8.4-10.2) mg/dL Phosphorus 3.3 (2.5-4.5) mg/dL Magnesium 1.9 (1.6-2.3) mg/dL Total Bilirubin 0.4 (0.2-1.3) mg/dL AST 29 (17-59) U/L ALT 24 (4-49) U/L Alkaline Phosphatase 102 (38-126) U/L Lactate Dehydrogenase 496 (313-618) U/L Troponin I 0.037 H* (0.000-0.034) ng/mL C-Reactive Protein <0.5 (<1.0) mg/dL Total Protein 6.3 (6.3-8.2) g/dL Albumin 3.8 (3.5-5.0) g/dL Urine Color Urine Appearance (Clear) Urine pH (5.0-8.0) Ur Specific [place] (1.001-1.035) Urine Protein (Negative) Urine Glucose (UA) (Negative) Urine Ketones (Negative) Urine Blood (Negative) Urine Nitrite (Negative) Urine Bilirubin (Negative) Urine Urobilinogen (<2.0) mg/dL Ur Leukocyte Esterase (Negative) Urine RBC (0-5) /hpf Urine WBC (0-5) /hpf Urine WBC Clumps (None) /hpf Ur Squamous Epith Cells (0-4) /hpf Urine Mucus (None) /hpf Coronavirus (PCR) (Not Detectd) 01/25/21 Range/Units 02:24 WBC (3.8-10.6) k/uL RBC (4.30-5.90) m/uL Hgb (13.0-17.5) gm/dL Hct (39.0-53.0) % MCV (80.0-100.0) fL MCH (25.0-35.0) pg MCHC (31.0-37.0) g/dL RDW (11.5-15.5) % Plt Count (150-450) k/uL MPV Neutrophils % % Lymphocytes % % Monocytes % % Eosinophils % % Basophils % % Neutrophils # (1.3-7.7) k/uL Lymphocytes # (1.0-4.8) k/uL Monocytes # (0-1.0) k/uL Eosinophils # (0-0.7) k/uL Basophils # (0-0.2) k/uL Macrocytosis PT (9.0-12.0) sec INR (<1.2) APTT (22.0-30.0) sec Sodium (137-145) mmol/L Potassium (3.5-5.1) mmol/L Chloride (98-107) mmol/L Carbon Dioxide (22-30) mmol/L Anion Gap mmol/L BUN (9-20) mg/dL Creatinine (0.66-1.25) mg/dL Est GFR (CKD-EPI)AfAm (>60 ml/min/1.73 sqM) Est GFR (CKD-EPI)NonAf (>60 ml/min/1.73 sqM) Glucose (74-99) mg/dL Plasma Lactic Acid Javad (0.7-2.0) mmol/L Calcium (8.4-10.2) mg/dL Phosphorus (2.5-4.5) mg/dL Magnesium (1.6-2.3) mg/dL Total Bilirubin (0.2-1.3) mg/dL AST (17-59) U/L ALT (4-49) U/L Alkaline Phosphatase (38-126) U/L Lactate Dehydrogenase (313-618) U/L Troponin I (0.000-0.034) ng/mL C-Reactive Protein (<1.0) mg/dL Total Protein (6.3-8.2) g/dL Albumin (3.5-5.0) g/dL Urine Color Urine Appearance (Clear) Urine pH (5.0-8.0) Ur Specific [place] (1.001-1.035) Urine Protein (Negative) Urine Glucose (UA) (Negative) Urine Ketones (Negative) Urine Blood (Negative) Urine Nitrite (Negative) Urine Bilirubin (Negative) Urine Urobilinogen (<2.0) mg/dL Ur Leukocyte Esterase (Negative) Urine RBC (0-5) /hpf Urine WBC (0-5) /hpf Urine WBC Clumps (None) /hpf Ur Squamous Epith Cells (0-4) /hpf Urine Mucus (None) /hpf Coronavirus (PCR) Not Detected (Not Detectd) - Radiology Data Radiology results: report reviewed (Chest x-rays negative for acute disease), image reviewed Critical Care Time Critical Care Time: Yes Total Critical Care Time: 31 Disposition Clinical Impression: Weakness, Dehydration, Nausea and vomiting, NSTEMI (non-ST elevated myocardial infarction), UTI (urinary tract infection) Disposition: ADMITTED IP TO THIS [facility] Condition: Fair Is patient prescribed a controlled substance at d/c from ED?: No Referrals: Alyse Foreman MD [Primary Care Provider] - 1-2 days
--- NOTE | 2021-01-25 02:38 | XR ---
EXAMINATION TYPE: XR chest 1V portable DATE OF EXAM: 01/25/2021 COMPARISON: 09/25/2019 HISTORY: Cough TECHNIQUE: FINDINGS: Heart is enlarged. There is no heart failure. There is some coarsening of interstitial eloina ings. There are sternal wires. There are chest leads. Costophrenic angles are clear. IMPRESSION: Cardiomegaly. Mild pulmonary fibrosis. No heart failure seen. There is not a significant change allowing for different technique compared to old exam.
[2021-01-25 02:43] LABS: Basophils % (A) 0 %; Eosinophils # (A) 0.1 k/uL (0-0.7); Eosinophils % (A) 1 %; HCT 42.5 % (39.0-53.0); HGB 13.8 gm/dL (13.0-17.5); Lymphocytes % (A) 16 %; MCH 34.5 pg (25.0-35.0); MCHC 32.4 g/dL (31.0-37.0); MCV 106.5 fL (80.0-100.0); Macrocytosis Moderate; Mean Platelet Volume 8.8; Monocytes # (A) 0.2 k/uL (0-1.0); Monocytes % (A) 3 %; Neutrophils % (A) 79 %; Platelet Count 143 k/uL (150-450); RBC 3.99 m/uL (4.30-5.90); RDW 14.4 % (11.5-15.5); WBC 6.3 k/uL (3.8-10.6)
[2021-01-25 02:50] LABS: Partial Thromboplastin Time 22.3 sec (22.0-30.0); Prothrombin Time 10.6 sec (9.0-12.0)
[2021-01-25 03:06] LABS: ALT 24 U/L (4-49); AST 29 U/L (17-59); African American GFR (CKD) 81 (>60 ml/min/1.73 sqM); Albumin 3.8 g/dL (3.5-5.0); Alkaline Phosphatase 102 U/L (38-126); Anion Gap 7 mmol/L; Blood Urea Nitrogen 20 mg/dL (9-20); C Reactive Protein <0.5 mg/dL (<1.0); Calcium 9.1 mg/dL (8.4-10.2); Carbon Dioxide 25 mmol/L (22-30); Chloride 105 mmol/L (98-107); Glucose 143 mg/dL (74-99); LDH 496 U/L (313-618); Magnesium 1.9 mg/dL (1.6-2.3); Non-African American GFR(CKD) 70 (>60 ml/min/1.73 sqM); Phosphorus 3.3 mg/dL (2.5-4.5); Potassium 4.1 mmol/L (3.5-5.1); Sodium 137 mmol/L (137-145); Total Bilirubin 0.4 mg/dL (0.2-1.3); Total Protein 6.3 g/dL (6.3-8.2)
[2021-01-25 03:16] LABS: Appearance,Urine Cloudy (Clear); Bilirubin,Urine Negative (Negative); Blood,Urine Small (Negative); Color,Urine Light Yellow; Glucose,Urine (UA) Negative (Negative); Ketones,Urine Negative (Negative); Leukocyte Esterase,Urine Large (Negative); Mucus,Urine Rare /hpf; Nitrite,Urine Negative (Negative); Protein,Urine 1+ (Negative); RBC,Urine 18 /hpf (0-5); Specific Gravity,Urine 1.013 (1.001-1.035); Squamous Epithelial Cell,Urine <1 /hpf (0-4); Urobilinogen,Urine <2.0 mg/dL (<2.0); WBC,Urine >182 /hpf (0-5)
[2021-01-25] MEDS ORDERED: NALOXONE 0.4 MG/ML 1 ML VIAL IV PRN (03:56)
[2021-01-25] MEDS ORDERED: AMPICILLIN-SULBACTAM 3 GM in SODIUM CHLORIDE 0.9% 100 ML IVPB STA (03:56)
[2021-01-25] MEDS ORDERED: ONDANSETRON 4 MG/2 ML VIAL IVP PRN (03:56)
[2021-01-25] MEDS ORDERED: MORPHINE SULFATE 4 MG/ML SYRINGE IV PRN (03:56)
[2021-01-25] MEDS ORDERED: SODIUM CHLORIDE 0.9% 1,000 ML IV SCH (04:00)
[2021-01-25] MEDS ORDERED: DEXTROSE 5% IN WATER 100 ML with AMIODARONE 150 MG IV ONE ×2 (04:19→10:20)
[2021-01-25] MEDS ORDERED: AMIODARONE IV ONE (04:19)
[2021-01-25] MEDS: MAGNESIUM SULFATE-D5W PMX 1 GM in DEXTROSE/WATER 1 100ML.BAG IVPB SCH ×2 (04:23→05:48)
[2021-01-25] MEDS ORDERED: PROCAINAMIDE 500 MG/ML IV STA (04:25)
[2021-01-25] MEDS ORDERED: DEXTROSE 5% IN WATER 250 ML with AMIODARONE 300 MG IV ONE (04:28)
[2021-01-25] MEDS ORDERED: PROCAINAMIDE 1,000 MG in DEXTROSE 5% IN WATER 250 ML IV SCH ×2 (04:30)
[2021-01-25] MEDS ORDERED: HYDROmorphone 1 MG/ML 1 ML SYRINGE IVP STA (04:36)
[2021-01-25] MEDS ORDERED: MIDAZOLAM 1 MG/ML 5 ML VIAL IV STA (04:41)
[2021-01-25] MEDS ORDERED: DIAZEPAM 5 MG/ML 2 ML INJ IVP STA (04:42)
[2021-01-25] MEDS: METOPROLOL TARTRATE 5 MG/5 ML VIAL IVP SCH ×6 (04:57→05:45)
--- NOTE | 2021-01-25 05:16 | ED ---
Medical Decision Making - Medical Decision Making 85 male with reevaluation no as patient went in spontaneously to ventricular tachycardia rate of May without chest pain or hypotension this was stable episode of ventricular tachycardia that was persistent, amiodarone was given procainamide was given labetalol was given, patient was able to medically cardiovert out of ventricular tachycardia without needing electric cardioversio n. Patient remained asymptomatic throughout entire stay - Lab Data Result diagrams: 01/25/21 02:24 01/25/21 02:24 Lab Results 01/25/21 01/25/21 01/25/21 Range/Units 02:24 02:24 02:24 WBC 6.3 (3.8-10.6) k/uL RBC 3.99 L (4.30-5.90) m/uL Hgb 13.8 (13.0-17.5) gm/dL Hct 42.5 (39.0-53.0) % MCV 106.5 H (80.0-100.0) fL MCH 34.5 (25.0-35.0) pg MCHC 32.4 (31.0-37.0) g/dL RDW 14.4 (11.5-15.5) % Plt Count 143 L (150-450) k/uL MPV 8.8 Neutrophils % 79 % Lymphocytes % 16 % Monocytes % 3 % Eosinophils % 1 % Basophils % 0 % Neutrophils # 5.0 (1.3-7.7) k/uL Lymphocytes # 1.0 (1.0-4.8) k/uL Monocytes # 0.2 (0-1.0) k/uL Eosinophils # 0.1 (0-0.7) k/uL Basophils # 0.0 (0-0.2) k/uL Macrocytosis Moderate PT 10.6 (9.0-12.0) sec INR 1.0 (<1.2) APTT 22.3 (22.0-30.0) sec Sodium (137-145) mmol/L Potassium (3.5-5.1) mmol/L Chloride (98-107) mmol/L Carbon Dioxide (22-30) mmol/L Anion Gap mmol/L BUN (9-20) mg/dL Creatinine (0.66-1.25) mg/dL Est GFR (CKD-EPI)AfAm (>60 ml/min/1.73 sqM) Est GFR (CKD-EPI)NonAf (>60 ml/min/1.73 sqM) Glucose (74-99) mg/dL Plasma Lactic Acid Javad (0.7-2.0) mmol/L Calcium (8.4-10.2) mg/dL Phosphorus (2.5-4.5) mg/dL Magnesium (1.6-2.3) mg/dL Total Bilirubin (0.2-1.3) mg/dL AST (17-59) U/L ALT (4-49) U/L Alkaline Phosphatase (38-126) U/L Lactate Dehydrogenase (313-618) U/L Troponin I (0.000-0.034) ng/mL C-Reactive Protein (<1.0) mg/dL Total Protein (6.3-8.2) g/dL Albumin (3.5-5.0) g/dL Urine Color Light Yellow Urine Appearance Cloudy (Clear) Urine pH 6.0 (5.0-8.0) Ur Specific Stewart 1.013 (1.001-1.035) Urine Protein 1+ H (Negative) Urine Glucose (UA) Negative (Negative) Urine Ketones Negative (Negative) Urine Blood Small H (Negative) Urine Nitrite Negative (Negative) Urine Bilirubin Negative (Negative) Urine Urobilinogen <2.0 (<2.0) mg/dL Ur Leukocyte Esterase Large H (Negative) Urine RBC 18 H (0-5) /hpf Urine WBC >182 H (0-5) /hpf Urine WBC Clumps Few H (None) /hpf Ur Squamous Epith Cells <1 (0-4) /hpf Urine Mucus Rare H (None) /hpf Coronavirus (PCR) (Not Detectd) 01/25/21 01/25/21 01/25/21 Range/Units 02:24 02:24 02:24 WBC (3.8-10.6) k/uL RBC (4.30-5.90) m/uL Hgb (13.0-17.5) gm/dL Hct (39.0-53.0) % MCV (80.0-100.0) fL MCH (25.0-35.0) pg MCHC (31.0-37.0) g/dL RDW (11.5-15.5) % Plt Count (150-450) k/uL MPV Neutrophils % % Lymphocytes % % Monocytes % % Eosinophils % % Basophils % % Neutrophils # (1.3-7.7) k/uL Lymphocytes # (1.0-4.8) k/uL Monocytes # (0-1.0) k/uL Eosinophils # (0-0.7) k/uL Basophils # (0-0.2) k/uL Macrocytosis PT (9.0-12.0) sec INR (<1.2) APTT (22.0-30.0) sec Sodium 137 (137-145) mmol/L Potassium 4.1 (3.5-5.1) mmol/L Chloride 105 (98-107) mmol/L Carbon Dioxide 25 (22-30) mmol/L Anion Gap 7 mmol/L BUN 20 (9-20) mg/dL Creatinine 0.98 (0.66-1.25) mg/dL Est GFR (CKD-EPI)AfAm 81 (>60 ml/min/1.73 sqM) Est GFR (CKD-EPI)NonAf 70 (>60 ml/min/1.73 sqM) Glucose 143 H (74-99) mg/dL Plasma Lactic Acid Javad 1.3 (0.7-2.0) mmol/L Calcium 9.1 (8.4-10.2) mg/dL Phosphorus 3.3 (2.5-4.5) mg/dL Magnesium 1.9 (1.6-2.3) mg/dL Total Bilirubin 0.4 (0.2-1.3) mg/dL AST 29 (17-59) U/L ALT 24 (4-49) U/L Alkaline Phosphatase 102 (38-126) U/L Lactate Dehydrogenase 496 (313-618) U/L Troponin I 0.037 H* (0.000-0.034) ng/mL C-Reactive Protein <0.5 (<1.0) mg/dL Total Protein 6.3 (6.3-8.2) g/dL Albumin 3.8 (3.5-5.0) g/dL Urine Color Urine Appearance (Clear) Urine pH (5.0-8.0) Ur Specific Stewart (1.001-1.035) Urine Protein (Negative) Urine Glucose (UA) (Negative) Urine Ketones (Negative) Urine Blood (Negative) Urine Nitrite (Negative) Urine Bilirubin (Negative) Urine Urobilinogen (<2.0) mg/dL Ur Leukocyte Esterase (Negative) Urine RBC (0-5) /hpf Urine WBC (0-5) /hpf Urine WBC Clumps (None) /hpf Ur Squamous Epith Cells (0-4) /hpf Urine Mucus (None) /hpf Coronavirus (PCR) (Not Detectd) 01/25/21 Range/Units 02:24 WBC (3.8-10.6) k/uL RBC (4.30-5.90) m/uL Hgb (13.0-17.5) gm/dL Hct (39.0-53.0) % MCV (80.0-100.0) fL MCH (25.0-35.0) pg MCHC (31.0-37.0) g/dL RDW (11.5-15.5) % Plt Count (150-450) k/uL MPV Neutrophils % % Lymphocytes % % Monocytes % % Eosinophils % % Basophils % % Neutrophils # (1.3-7.7) k/uL Lymphocytes # (1.0-4.8) k/uL Monocytes # (0-1.0) k/uL Eosinophils # (0-0.7) k/uL Basophils # (0-0.2) k/uL Macrocytosis PT (9.0-12.0) sec INR (<1.2) APTT (22.0-30.0) sec Sodium (137-145) mmol/L Potassium (3.5-5.1) mmol/L Chloride (98-107) mmol/L Carbon Dioxide (22-30) mmol/L Anion Gap mmol/L BUN (9-20) mg/dL Creatinine (0.66-1.25) mg/dL Est GFR (CKD-EPI)AfAm (>60 ml/min/1.73 sqM) Est GFR (CKD-EPI)NonAf (>60 ml/min/1.73 sqM) Glucose (74-99) mg/dL Plasma Lactic Acid Javad (0.7-2.0) mmol/L Calcium (8.4-10.2) mg/dL Phosphorus (2.5-4.5) mg/dL Magnesium (1.6-2.3) mg/dL Total Bilirubin (0.2-1.3) mg/dL AST (17-59) U/L ALT (4-49) U/L Alkaline Phosphatase (38-126) U/L Lactate Dehydrogenase (313-618) U/L Troponin I (0.000-0.034) ng/mL C-Reactive Protein (<1.0) mg/dL Total Protein (6.3-8.2) g/dL Albumin (3.5-5.0) g/dL Urine Color Urine Appearance (Clear) Urine pH (5.0-8.0) Ur Specific Stewart (1.001-1.035) Urine Protein (Negative) Urine Glucose (UA) (Negative) Urine Ketones (Negative) Urine Blood (Negative) Urine Nitrite (Negative) Urine Bilirubin (Negative) Urine Urobilinogen (<2.0) mg/dL Ur Leukocyte Esterase (Negative) Urine RBC (0-5) /hpf Urine WBC (0-5) /hpf Urine WBC Clumps (None) /hpf Ur Squamous Epith Cells (0-4) /hpf Urine Mucus (None) /hpf Coronavirus (PCR) Not Detected (Not Detectd) - EKG Data -: EKG Interpreted by Me (Significant for ventricular tachycardia) Critical Care Time Critical Care Time: Yes Total Critical Care Time: 31 Disposition Clinical Impression: Weakness, Dehydration, Nausea and vomiting, NSTEMI (non-ST elevated myocardial infarction), UTI (urinary tract infection), Ventricular tachycardia Disposition: ADMITTED IP TO THIS [facility] Condition: Serious Is patient prescribed a controlled substance at d/c from ED?: No
[2021-01-25] MEDS ORDERED: PROCAINAMIDE 100 MG/ML 10 ML VIAL IV STA (06:25)
[2021-01-25] MEDS ORDERED: HEPARIN SODIUM 1,000 UN/ML (10ML VL) IV PRN (09:07)
[2021-01-25] MEDS ORDERED: FUROSEMIDE 10 MG/ML 4 ML VIAL IV STA ×2 (09:28→17:26)
[2021-01-25] MEDS ORDERED: FUROSEMIDE 10 MG/ML 4 ML VIAL IV SCH (09:30)
[2021-01-25] MEDS ORDERED: ASPIRIN 81 MG PO SCH (09:45)
[2021-01-25 10:12] LABS: Partial Thromboplastin Time 22.2 sec (22.0-30.0); Prothrombin Time 10.3 sec (9.0-12.0)
[2021-01-25] MEDS: ASPIRIN 81 MG PO SCH (10:24)
[2021-01-25] MEDS: METOPROLOL TARTRATE 25 MG TAB PO SCH ×2 (10:24→22:09)
[2021-01-25] MEDS: lisinopriL 5 MG TAB PO SCH (10:24)
[2021-01-25] MEDS: PANTOPRAZOLE 40 MG/10 ML VIAL IV SCH (10:26)
[2021-01-25] MEDS ORDERED: AMIODARONE 360 MG in DEXTROSE 5% IN WATER 200 ML IV ONE ×2 (10:30)
--- NOTE | 2021-01-25 11:00 | P.HPIM ---
History of Present Illness 85-year-old male came in with the complains of nausea vomiting which started yesterday and was also having some retrosternal chest pain. Patient does have history of his heart failure coronary artery disease CABG in the past patient previous ejection fraction is around 30-35% patient doesn't have a defibrillator at this time. Patient does have extensive bilateral pedal edema, was also having shortness of breath, chest x-ray was read as pulmonary fibrosis, patient has BNP of 866. Patient doesn't have any symptoms of UTI fever or leukocytosis does have abnormal urine with elevated white blood cell count of 182 because of which I believe patient was started on Unasyn. Patient has some ST depressions in the inferior leads although patient had similar findings in the previous EKGs as well patient does have elevated troponins very mild and stable at 0.042 and episodes of wide complex tachycardia possibly SVT. REVIEW OF SYSTEMS: CONSTITUTIONAL: No fever, no malaise, no fatigue. HEENT: No recent visual problems or hearing problems. Denied any sore throat. CARDIOVASCULAR: No, PND, no palpitations, no syncope. PULMONARY:no hemoptysis. GASTROINTESTINAL: No diarrhea. NEUROLOGICAL: No headaches, no weakness, no numbness. HEMATOLOGICAL: Denies any bleeding or petechiae. GENITOURINARY: Denies any burning micturition, frequency, or urgency. MUSCULOSKELETAL/RHEUMATOLOGICAL: Denies any joint pain, swelling, or any muscle pain. ENDOCRINE: Denies any polyuria or polydipsia. The rest of the 14-point review of systems is negative. PHYSICAL EXAMINATION: GENERAL: The patient is alert and oriented x3, not in any acute distress. Obese HEENT: Pupils are round and equally reacting to light. EOMI. No scleral icterus. No conjunctival pallor. Normocephalic, atraumatic. No pharyngeal erythema. No thyromegaly. CARDIOVASCULAR: S1 and S2 present. No murmurs, rubs, or gallops. PULMONARY: Chest is clear to auscultation, no wheezing or crackles. ABDOMEN: Soft, nontender, nondistended, normoactive bowel sounds. No palpable organomegaly. MUSCULOSKELETAL: No joint swelling or deformity. EXTREMITIES: No cyanosis, clubbing, extensive bilateral pedal edema NEUROLOGICAL: Gross neurological examination did not reveal any focal deficits. SKIN: No rashes. Assessment and plan Nausea vomiting: Can be gastritis as well because of disease continue with the Protonix. I cannot not rule out acute coronary syndromes or inferior wall AL patient does have mildly elevated troponins cardiology will evaluate the pat ient. For now patient will be started on IV heparin -Mild elevation of troponins: Cannot rule out non-ST elevation AL -Excessive bilateral pedal edema possibly of congestive heart failure chronic systolic dysfunction with acute exacerbation patient may need Lasix patient is receiving IV fluids and discontinue those and I'll leave the decision of Lasix to cardiology -Episodes of right convex tachycardia possibly supraventricular tachycardia management as per cardiology -Benign prostatic hypertrophy -History of COPD without any acute exacerbation -Hyperlipidemia -Coronary artery disease DVT prophylaxis: Presently on IV heparin Past Medical History Past Medical History: Chest Pain / Angina, Heart Failure, CVA/TIA, Hyperlipidemia, Hypertension, Myocardial Infarction ([place]), Osteoarthritis (OA), Prostate Disorder Additional Past Medical History / Comment(s): kidney stones, gout,tia 2005, mi 1987 and 1988, IN PAST TOOK MEDS FOR DM-NO LONGER TAKES MEDS OR CHECKS BS. Last Myocardial Infarction Date:: 1988 History of Any Multi-Drug Resistant Organisms: None Reported Past Surgical History: Coronary Bypass/CABG, Heart Catheterization With Stent, Tonsillectomy Additional Past Surgical History / Comment(s): left hip replacement 2009,lt inguinal hernia repair, cystocopy,turp,quad cabg 1995 had heart cath w/ stent after cabg,aaa reapir 2000, dianne cataracts, lt hand sx (revison of amp lt thumb), kidney stones removed, vasectomy. Past Anesthesia/Blood Transfusion Reactions: No Reported Reaction Date of Last Stent Placement:: unk Past Psychological History: No Psychological Hx Reported Past Alcohol Use History: Occasional Past Drug Use History: None Reported - Past Family History Mother Family Medical History: Myocardial Infarction ([place]) Father Family Medical History: Myocardial Infarction ([place]) Medications and Allergies Home Medications Medication Instructions Recorded Confirmed Type Budesonide/Formoterol Fumarate 2 puff INHALATION RT-BID 08/30/16 01/25/21 History [Symbicort 160-4.5 Mcg Inhaler] Dipyridamole-Aspirin 200-25 mg 1 tab PO BID 08/30/16 01/25/21 History [Aggrenox 25MG -200MG] Tamsulosin HCl [Flomax] 0.4 mg PO BID 08/30/16 01/25/21 History allopurinoL [Zyloprim] 300 mg PO HS 08/30/16 01/25/21 History Atorvastatin [Lipitor] 40 mg PO HS #30 tablet 08/14/17 01/25/21 Rx Metoprolol Tartrate 12.5 mg PO HS 09/25/19 01/25/21 History Albuterol Sulfate [Ventolin HFA] 2 puff INHALATION RT-Q6H PRN 01/25/21 01/25/21 History Escitalopram [Lexapro] 5 mg PO DAILY 01/25/21 01/25/21 History Hydrochlorothiazide 12.5 mg PO DAILY 01/25/21 01/25/21 History [hydroCHLOROthiazide] Allergies Allergy/AdvReac Type Severity Reaction Status Date / Time cephalexin [From Keflex] Allergy Rash/Hives Verified 01/25/21 08:46 ciprofloxacin [From Cipro] Allergy Rash/Hives Verified 01/25/21 08:46 Physical Exam Vitals: Vital Signs Temp Pulse Resp BP Pulse Ox 01/25/21 10:05 77 18 150/88 96 01/25/21 06:30 69 18 130/83 95 01/25/21 06:00 69 18 123/81 96 01/25/21 05:30 98.1 F 70 17 127/85 95 01/25/21 05:15 65 19 127/87 96 01/25/21 05:00 80 16 129/82 90 L 01/25/21 04:45 146 H 12 148/100 98 01/25/21 04:30 146 H 18 128/100 99 01/25/21 04:15 98.0 F 147 H 18 126/99 99 01/25/21 04:10 94 16 145/96 94 L 01/25/21 01:50 97.6 F 98 16 166/99 94 L Intake and Output 01/24/21 01/25/21 01/25/21 22:59 06:59 14:59 Other: Weight 117.934 kg Results CBC & Chem 7: 01/25/21 02:24 01/25/21 02:24 Labs: Abnormal Lab Results - Last 24 Hours (Table) 01/25/21 01/25/21 01/25/21 Range/Units 02:24 02:24 02:24 RBC 3.99 L (4.30-5.90) m/uL MCV 106.5 H (80.0-100.0) fL Plt Count 143 L (150-450) k/uL Glucose 143 H (74-99) mg/dL Troponin I (0.000-0.034) ng/mL Urine Protein 1+ H (Negative) Urine Blood Small H (Negative) Ur Leukocyte Esterase Large H (Negative) Urine RBC 18 H (0-5) /hpf Urine WBC >182 H (0-5) /hpf Urine WBC Clumps Few H (None) /hpf Urine Mucus Rare H (None) /hpf 01/25/21 01/25/21 Range/Units 02:24 06:29 RBC (4.30-5.90) m/uL MCV (80.0-100.0) fL Plt Count (150-450) k/uL Glucose (74-99) mg/dL Troponin I 0.037 H* 0.042 H* (0.000-0.034) ng/mL Urine Protein (Negative) Urine Blood (Negative) Ur Leukocyte Esterase (Negative) Urine RBC (0-5) /hpf Urine WBC (0-5) /hpf Urine WBC Clumps (None) /hpf Urine Mucus (None) /hpf Microbiology - Last 24 Hours (Table) 01/25/21 02:24 Urine Culture - Preliminary Urine,Voided
[2021-01-25] MEDS ORDERED: AMIODARONE IN DEXTROSE,ISO-OSM 360 MG/200 ML PLAST..BAG IV ONE (11:42)
[2021-01-25] MEDS ORDERED: AMIODARONE IN DEXTROSE,ISO-OSM 150 MG/100 ML PLAST..BAG IV ONE (11:42)
--- NOTE | 2021-01-25 13:17 | P.CRDCN ---
History of Present Illness Consult date: 01/25/21 History of present illness: HISTORY OF PRESENT ILLNESS: This is a 85 year old male with a past medical history significant for coronary artery disease with previous CABG in 1995, AAA repair in 2000, hypertension, hyperlipidemia, diabetes, ischemic heart myopathy with a known ejection fraction of 30-35%, and congestive heart failure not taking diuretics on a regular basis as he does not like urinating frequently. Patient used to follow in the office with Dr. Wiley. He was last seen in 2019 and reports "I don't see him anyone. I fired him". We have been asked to see the patient in consultation for elevated troponins. Patient examined at the bedside. Patient reports he woke up around midnight and was dizzy. He reports having a few episodes of nausea and vomiting as well which prompted him to come to the hospital. Patient denied any chest pain or pressure. He reports chronic shortness of breath which is at his baseline. She did have an episode in the emergency room of ventricular tachycardia. He received amiodarone and procainamide and converted to sinus mechanism. EKG reveals sinus mechanism with right bundle branch block-similar to previous EKGs Chest xray cardiomegaly. Mild pulmonary fibrosis. No heart failure seen. Laboratory data: WBC 6.3. Hemoglobin 13.8. Platelet count 143. Sodium 137. Potassium 4.1. BUN 20. Creatinine 0.98. ProBNP 166. Troponin 0.037. 0.042. 0.088. Current home cardiac medications include hydrochlorothiazide 12.5 mg daily, metoprolol tartrate 12.5 mg at night, Aggrenox 88664 milligrams twice a day, Lipitor 40 mg daily Most recent echocardiogram obtained in 2018 revealed ejection fraction 30-35%, basal lateral, basal inferior, basal inferior septal, mid lateral, and mid infer ior LV wall hypokinesis. Anterior septal hypokinesis. Her to severe mitral regurgitation. Mild tricuspid regurgitation. Borderline pulmonary hypertension. REVIEW OF SYSTEMS: At the time of my exam: CONSTITUTIONAL: Denies fever or chills. HEENT: Denies blurred vision, vision changes, or eye pain. Denies hemoptysis CARDIOVASCULAR: Denies chest pain. Denies orthopnea. Denies PND. Denies palpitations RESPIRATORY: Denies shortness of breath. GASTROINTESTINAL: Denies abdominal pain. Denies nausea or vomiting. HEMATOLOGIC: Denies bleeding disorders. GENITOURINARY: Denies any blood in urine. SKIN: Denies pruitis. Denies rash. PHYSICAL EXAM: VITAL SIGNS: Reviewed. GENERAL: Well-developed in no acute distress. HEENT: Head is normocephalic. Pupils are equal, round. Sclerae anicteric. Mucous membranes of the mouth are moist. Neck supple. No JVD or thyromegaly LUNGS: Respirations even and unlabored. Lungs diminished to auscultation b ilaterally. HEART: Regular rate and rhythm. S1 and S2 heard. ABDOMEN: Soft. Nondistended. Nontender. EXTREMITIES: Normal range of motion. No clubbing or cyanosis. Peripheral pulses intact. 2-3+ bilateral lower extremity edema NEUROLOGIC: Awake and alert. Oriented x 3. ASSESSMENT: Dizziness Nausea and vomiting Possible urinary tract infection Ventricular tachycardia Abnormal troponins, possible NSTEMI however less likely Ischemic cardiomyopathy with known ejection fraction of 30-35% Coronary artery disease with previous CABG Chronic systolic congestive heart failure History of AAA repair Hypertension Hyperlipidemia Diabetes PLAN: Obtain 2D echo to assess cardiac structure and function Discontinue Aggrenox Begin aspirin 81 mg daily and lisinopril 5 mg daily Increase metoprolol tartrate to 25 mg twice a day Begin amiodarone bolus and infusion per protocol Lasix 40 mg IV 1 dose. Begin oral Lasix 40 mg daily starting tomorrow Continue IV heparin at this time Patient will likely require AICD implantation for cardiomyopathy with ventricul ar tachycardia. Timing to be determined. Further recommendations pending patient course Nurse practitioner note has been reviewed by physician. Signing provider agrees with the documented findings, assessment, and plan of care. Past Medical History Past Medical History: Chest Pain / Angina, Heart Failure, CVA/TIA, Hyperlipidemia, Hypertension, Myocardial Infarction ([place]), Osteoarthritis (OA), Prostate Disorder Additional Past Medical History / Comment(s): kidney stones, gout,tia 2005, mi 1987 and 1988, IN PAST TOOK MEDS FOR DM-NO LONGER TAKES MEDS OR CHECKS BS. Last Myocardial Infarction Date:: 1988 History of Any Multi-Drug Resistant Organisms: None Reported Past Surgical History: Coronary Bypass/CABG, Heart Catheterization With Stent, Tonsillectomy Additional Past Surgical History / Comment(s): left hip replacement 2009,lt inguinal hernia repair, cystocopy,turp,quad cabg 1995 had heart cath w/ stent after cabg,aaa reapir 2000, dianne cataracts, lt hand sx (revison of amp lt thumb), kidney stones removed, vasectomy. Past Anesthesia/Blood Transfusion Reactions: No Reported Reaction Date of Last Stent Placement:: unk Past Psychological History: No Psychological Hx Reported Past Alcohol Use History: Occasional Past Drug Use History: None Reported - Past Family History Mother Family Medical History: Myocardial Infarction ([place]) Father Family Medical History: Myocardial Infarction ([place]) Medications and Allergies Home Medications Medication Instructions Recorded Confirmed Type Budesonide/Formoterol Fumarate 2 puff INHALATION RT-BID 08/30/16 01/25/21 History [Symbicort 160-4.5 Mcg Inhaler] Dipyridamole-Aspirin 200-25 mg 1 tab PO BID 08/30/16 01/25/21 History [Aggrenox 25MG -200MG] Tamsulosin HCl [Flomax] 0.4 mg PO BID 08/30/16 01/25/21 History allopurinoL [Zyloprim] 300 mg PO HS 08/30/16 01/25/21 History Atorvastatin [Lipitor] 40 mg PO HS #30 tablet 08/14/17 01/25/21 Rx Metoprolol Tartrate 12.5 mg PO HS 09/25/19 01/25/21 History Albuterol Sulfate [Ventolin HFA] 2 puff INHALATION RT-Q6H PRN 01/25/21 01/25/21 History Escitalopram [Lexapro] 5 mg PO DAILY 01/25/21 01/25/21 History Hydrochlorothiazide 12.5 mg PO DAILY 01/25/21 01/25/21 History [hydroCHLOROthiazide] Allergies Allergy/AdvReac Type Severity Reaction Status Date / Time cephalexin [From Keflex] Allergy Rash/Hives Verified 01/25/21 08:46 ciprofloxacin [From Cipro] Allergy Rash/Hives Verified 01/25/21 08:46 Physical Exam Vitals: Vital Signs Temp Pulse Resp BP Pulse Ox 01/25/21 10:05 77 18 150/88 96 01/25/21 06:30 69 18 130/83 95 01/25/21 06:00 69 18 123/81 96 01/25/21 05:30 98.1 F 70 17 127/85 95 01/25/21 05:15 65 19 127/87 96 01/25/21 05:00 80 16 129/82 90 L 01/25/21 04:45 146 H 12 148/100 98 01/25/21 04:30 146 H 18 128/100 99 01/25/21 04:15 98.0 F 147 H 18 126/99 99 01/25/21 04:10 94 16 145/96 94 L 01/25/21 01:50 97.6 F 98 16 166/99 94 L Intake and Output 01/24/21 01/25/21 01/25/21 22:59 06:59 14:59 Other: Weight 117.934 kg Results 01/25/21 02:24 01/25/21 02:24 Cardiac Enzymes 01/25/21 01/25/21 01/25/21 Range/Units 02:24 02:24 06:29 AST 29 (17-59) U/L Lactate Dehydrogenase 496 (313-618) U/L Troponin I 0.037 H* 0.042 H* (0.000-0.034) ng/mL 01/25/21 Range/Units 09:24 AST (17-59) U/L Lactate Dehydrogenase (313-618) U/L Troponin I 0.088 H* (0.000-0.034) ng/mL Coagulation 01/25/21 01/25/21 Range/Units 02:24 09:24 PT 10.6 10.3 (9.0-12.0) sec APTT 22.3 22.2 (22.0-30.0) sec CBC 01/25/21 Range/Units 02:24 WBC 6.3 (3.8-10.6) k/uL RBC 3.99 L (4.30-5.90) m/uL Hgb 13.8 (13.0-17.5) gm/dL Hct 42.5 (39.0-53.0) % Plt Count 143 L (150-450) k/uL Comprehensive Metabolic Panel 01/25/21 Range/Units 02:24 Sodium 137 (137-145) mmol/L Potassium 4.1 (3.5-5.1) mmol/L Chloride 105 (98-107) mmol/L Carbon Dioxide 25 (22-30) mmol/L BUN 20 (9-20) mg/dL Creatinine 0.98 (0.66-1.25) mg/dL Glucose 143 H (74-99) mg/dL Calcium 9.1 (8.4-10.2) mg/dL AST 29 (17-59) U/L ALT 24 (4-49) U/L Alkaline Phosphatase 102 (38-126) U/L Total Protein 6.3 (6.3-8.2) g/dL Albumin 3.8 (3.5-5.0) g/dL Current Medications Generic Name Dose Route Start Last Admin Trade Name Freq PRN Reason Stop Dose Admin Albuterol Sulfate 2.5 mg 01/25/21 09:08 Albuterol Nebulized 2.5 Mg/3 Ml INHALATION RT-Q6H PRN Shortness Of Breath Allopurinol 300 mg 01/25/21 21:00 Allopurinol 300 Mg Tab PO HS BRENNA Aspirin 81 mg 01/25/21 09:45 01/25/21 10:24 Aspirin 81 Mg PO 81 mg DAILY BRENNA Administration Atorvastatin Calcium 40 mg 01/25/21 21:00 Atorvastatin 40 Mg Tab PO HS BRENNA Budesonide/Formoterol Fumarate 2 puff 01/25/21 20:00 Symbicort 160-4.5 Mcg Inhaler INHALATION RT-BID BRENNA Escitalopram Oxalate 5 mg 01/26/21 09:00 Escitalopram 5 Mg Tab PO DAILY BRENNA Furosemide 40 mg 01/26/21 09:00 Furosemide 40 Mg Tab PO DAILY BRENNA Heparin Sodium (Porcine) 0 unit 01/25/21 09:07 Heparin Sodium 1,000 Un/Ml (10ml Vl) IV PER PROTOCOL PRN Low PTT Protocol Ampicillin Sodium/Sulbactam 100 mls @ 200 mls/hr 01/25/21 13:00 Sodium 3 gm/ Sodium Chloride IVPB Q8H BRENNA Heparin Sodium/Sodium Chloride 250 mls @ 10 mls/hr 01/25/21 09:15 25,000 unit/ Sodium Chloride IV .Q24H BRENNA Protocol 8.479 UNITS/KG/HR Amiodarone HCl 360 mg/ 200 mls @ 33.333 mls/hr 01/25/21 10:30 01/25/21 11:46 Dextrose/Water IV 01/25/21 16:29 1 mg/min .Q6H ONE 33.333 mls/hr Administration Protocol 1 MG/MIN Amiodarone HCl 450 mg/ 250 mls @ 16.667 mls/hr 01/25/21 16:30 Dextrose/Water IV 01/26/21 10:29 .Q15H BRENNA Protocol 0.5 MG/MIN Lisinopril 5 mg 01/25/21 09:45 01/25/21 10:24 Lisinopril 5 Mg Tab PO 5 mg DAILY BRENNA Administration Metoprolol Tartrate 25 mg 01/25/21 09:30 01/25/21 10:24 Metoprolol Tartrate 25 Mg Tab PO 25 mg BID BRENNA Administration Morphine Sulfate 4 mg 01/25/21 03:56 Morphine Sulfate 4 Mg/Ml Syringe IV Q4HR PRN Severe Pain Naloxone HCl 0.2 mg 01/25/21 03:56 Naloxone 0.4 Mg/Ml 1 Ml Vial IV Q2M PRN Opioid Reversal Ondansetron HCl 4 mg 01/25/21 03:56 Ondansetron 4 Mg/2 Ml Vial IVP Q8HR PRN Nausea And Vomiting Pantoprazole Sodium 40 mg 01/25/21 09:00 01/25/21 10:26 Pantoprazole 40 Mg/10 Ml Vial IV 40 mg DAILY BRENNA Administration Tamsulosin HCl 0.4 mg 01/25/21 21:00 Tamsulosin 0.4 Mg Cap.Er.24h PO BID BRENNA Intake and Output 01/24/21 01/25/21 01/25/21 22:59 06:59 14:59 Other: Weight 117.934 kg 01/25/21 02:24 01/25/21 02:24
[2021-01-25] MEDS: ALBUTEROL NEBULIZED 2.5 MG/3 ML INHALATION PRN ×2 (13:43→20:34)
[2021-01-25] MEDS: HEPARIN SOD,PORK IN 0.45% NACL 25,000 UNIT in 0.45% NACL 1 250ML.BAG IV SCH (14:28)
[2021-01-25] MEDS: AMPICILLIN-SULBACTAM 3 GM in SODIUM CHLORIDE 0.9% 100 ML IVPB SCH ×2 (14:37→22:04)
[2021-01-25] MEDS ORDERED: LORazepam 2 MG/ML INJ IV STA (17:07)
[2021-01-25] MEDS ORDERED: NITROGLYCERIN-D5W PMX 50 MG in DEXTROSE/WATER 1 250ML.BAG IV SCH (17:30)
[2021-01-25] MEDS: AMIODARONE 450 MG in DEXTROSE 5% IN WATER 250 ML IV SCH ×2 (17:41)
[2021-01-25 17:53] LABS: ABG Base Excess -2.1 mmol/L; ABG HCO3 26 mmol/L (21-25); ABG Oxygen Saturation 97.3 % (94-97); ABG PCO2 63 mmHg (35-45); ABG PH 7.22 (7.35-7.45); ABG PO2 100 mmHg (83-108); ABG TCO2 28 mmol/L (19-24); Allen Test Performed? Yes
[2021-01-25] MEDS: SYMBICORT 160-4.5 MCG INHALER INHALATION SCH (20:35)
[2021-01-25] MEDS ORDERED: DIPYRIDAMOLE-ASPIRIN 200-25 MG 1 EACH CPMP.12HR PO SCH (21:00)
[2021-01-25 21:49] LABS: Glucose,Whole Blood 160 mg/dL (75-99)
[2021-01-25] MEDS: TAMSULOSIN 0.4 MG CAP.ER.24H PO SCH (22:09)
[2021-01-25] MEDS: ATORVASTATIN 40 MG TAB PO SCH (22:09)
[2021-01-25] MEDS: allopurinoL 300 MG TAB PO SCH (23:33)
[2021-01-26] MEDS: NITROGLYCERIN OINT 1 INCH/GM PACKET TOPICAL SCH ×4 (00:05→19:31)
[2021-01-26] MEDS ORDERED: SODIUM CHLORIDE 0.9% 500 ML 200 ML IV ONE (01:05)
[2021-01-26] MEDS ORDERED: NOREPINEPHRINE 4 MG in SODIUM CHLORIDE 0.9% 250 ML IV SCH (01:15)
[2021-01-26] MEDS: AMPICILLIN-SULBACTAM 3 GM in SODIUM CHLORIDE 0.9% 100 ML IVPB SCH ×2 (04:46→12:52)
[2021-01-26] MEDS: AMIODARONE 450 MG in DEXTROSE 5% IN WATER 250 ML IV SCH ×2 (07:08)
[2021-01-26 08:07] LABS: Basophils % (A) 0 %; Eosinophils % (A) 1 %; HCT 44.9 % (39.0-53.0); HGB 14.6 gm/dL (13.0-17.5); Lymphocytes # (A) 1.1 k/uL (1.0-4.8); Lymphocytes % (A) 14 %; MCHC 32.5 g/dL (31.0-37.0); MCV 110.8 fL (80.0-100.0); Macrocytosis Marked; Mean Platelet Volume 8.3; Monocytes # (A) 0.4 k/uL (0-1.0); Monocytes % (A) 4 %; Neutrophils # (A) 6.4 k/uL (1.3-7.7); Neutrophils % (A) 80 %; Platelet Count 145 k/uL (150-450); RBC 4.05 m/uL (4.30-5.90); RDW 14.5 % (11.5-15.5)
[2021-01-26 08:11] LABS: INR 1.1 (<1.2); Prothrombin Time 11.3 sec (9.0-12.0)
[2021-01-26] MEDS: SYMBICORT 160-4.5 MCG INHALER INHALATION SCH ×2 (08:20→20:52)
[2021-01-26] MEDS: PANTOPRAZOLE 40 MG/10 ML VIAL IV SCH (08:50)
[2021-01-26] MEDS: ASPIRIN 81 MG PO SCH (08:50)
[2021-01-26] MEDS: ESCITALOPRAM 5 MG TAB PO SCH (08:51)
[2021-01-26] MEDS: TAMSULOSIN 0.4 MG CAP.ER.24H PO SCH ×2 (08:51→20:22)
[2021-01-26] MEDS: lisinopriL 5 MG TAB PO SCH (08:51)
[2021-01-26] MEDS: FUROSEMIDE 40 MG TAB PO SCH (08:51)
[2021-01-26] MEDS: METOPROLOL TARTRATE 25 MG TAB PO SCH ×2 (08:51→20:23)
[2021-01-26 09:43] LABS: Albumin 3.3 g/dL (3.5-5.0); Calcium 8.9 mg/dL (8.4-10.2); Magnesium 2.1 mg/dL (1.6-2.3); Phosphorus 4.1 mg/dL (2.5-4.5); Potassium 4.6 mmol/L (3.5-5.1); Total Bilirubin 0.7 mg/dL (0.2-1.3); Total Protein 5.7 g/dL (6.3-8.2)
[2021-01-26] MEDS: HEPARIN SOD,PORK IN 0.45% NACL 25,000 UNIT in 0.45% NACL 1 250ML.BAG IV SCH (10:32)
--- NOTE | 2021-01-26 10:37 | ECHOF ---
Referral Reason:lv function MEASUREMENTS -------- HEIGHT: 195.6 cm WEIGHT: 117.9 kg BP: 150/88 RVIDd: 4.4 cm (< 3.3) IVSd: 1.6 cm (0.6 - 1.1) LVIDd: 7.2 cm (3.9 - 5.3) LVPWd: 1.4 cm (0.6 - 1.1) IVSs: 1.9 cm LVIDs: 6.3 cm LVPWs: 1.6 cm LA Diam: 4.0 cm (2.7 - 3.8) LAESV Index (A-L): 21.93 ml/m Ao Diam: 3.6 cm (2.0 - 3.7) AV Cusp: 1.7 cm (1.5 - 2.6) MV EXCURSION: 16.790 mm (> 18.000) MV EF SLOPE: 96 mm/s (70 - 150) EPSS: 2.4 cm AV maxP.54 mmHg AV meanP.79 mmHg RAP: 15.00 mmHg RVSP: 74.66 mmHg FINDINGS -------- Resting tachycardia (HR>100bpm). This was a technically adequate study. The left ventricular size is normal. There is moderate concentric left ventricular hypertrophy. O verall left ventricular systolic function is severely impaired with, an EF between 20 - 25 %. The right ventricle is severely enlarged. Normal LA size by volume 22+/-6 ml/m2. The right atrium is normal in size. Interatrial and interventricular septum intact. There is moderate aortic valve sclerosis. Trace amount of aortic regurgitation. There is mild ao rtic stenosis present. Peak/mean gradient across the Aortic Valve is 27.54mmHg / 15.79mmHg. The mitral valve leaflets are mildly thickened. Mild mitral annular calcification present. Modera te mitral regurgitation is present. Mild tricuspid regurgitation present. There is severe pulmonary hypertension. The right ventricul ar systolic pressure, as measured by Doppler, is 74.66mmHg. Trace/mild (physiologic) pulmonic regurgitation. The aortic root size is normal. The inferior vena cava is dilated with no significant inspiratory collapse which is consistent estima gee right atrial pressure of >15 mmHg. There is no pericardial effusion. CONCLUSIONS -------- 1. The left ventricular size is normal. 2. There is moderate concentric left ventricular hypertrophy. 3. Overall left ventricular systolic function is severely impaired with, an EF between 20 - 25 %. 4. The right ventricle is severely enlarged. 5. There is moderate aortic valve sclerosis. 6. Trace amount of aortic regurgitation. 7. There is mild aortic stenosis present. 8. Peak/mean gradient across the Aortic Valve is 27.54mmHg / 15.79mmHg. 9. The mitral valve leaflets are mildly thickened. 10. Mild mitral annular calcification present. 11. Moderate mitral regurgitation is present. 12. Mild tricuspid regurgitation present. 13. There is severe pulmonary hypertension. 14. The right ventricular systolic pressure, as measured by Doppler, is 74.66mmHg. 15. Trace/mild (physiologic) pulmonic regurgitation. 16. The aortic root size is normal. 17. The inferior vena cava is dilated with no significant inspiratory collapse which is consistent es timated right atrial pressure of >15 mmHg. 18. There is no pericardial effusion. [employer] MA[employer]GER: Lexis Noel RDCS
--- NOTE | 2021-01-26 10:39 | P.PN ---
Subjective HISTORY OF PRESENT ILLNESS: This is a 85 year old male with a past medical history significant for coronary artery disease with previous CABG in 1995, AAA repair in 2000, hypertension, hyperlipidemia, diabetes, ischemic heart myopathy with a known ejection fraction of 30-35%, and congestive heart failure not taking diuretics on a regular basis as he does not like urinating frequently. Patient used to follow in the office with Dr. Wiley. He was last seen in 2019 and reports "I don't see him anyone. I fired him". We have been asked to see the patient in consultation for elevated troponins. Patient examined at the bedside. Patient reports he woke up around midnight and was dizzy. He reports having a few episodes of nausea and vomiting as well which prompted him to come to the hospital. Patient denied any chest pain or pressure. He reports chronic shortness of breath which is at his baseline. She did have an episode in the emergency room of ventricular tachycardia. He received amiodarone and procainamide and converted to sinus mechanism. EKG reveals sinus mechanism with right bundle branch block-similar to previous EKGs Chest xray cardiomegaly. Mild pulmonary fibrosis. No heart failure seen. Laboratory data: WBC 6.3. Hemoglobin 13.8. Platelet count 143. Sodium 137. Potassium 4.1. BUN 20. Creatinine 0.98. ProBNP 166. Troponin 0.037. 0.042. 0.088. Current home cardiac medications include hydrochlorothiazide 12.5 mg daily, metoprolol tartrate 12.5 mg at night, Aggrenox 52914 milligrams twice a day, Lipitor 40 mg daily Most recent echocardiogram obtained in 2018 revealed ejection fraction 30-35%, basal lateral, basal inferior, basal inferior septal, mid lateral, and mid inferior LV wall hypokinesis. Anterior septal hypokinesis. Her to severe mitral regurgitation. Mild tricuspid regurgitation. Borderline pulmonary hypertension. 01/26 Patient seen and examined. Patient transferred to ICU secondary to respiratory distress. Patient off and on BiPAP. Denies any chest pain or pressure. He has been diuresed. Echo pending. Creatinine increased to 1.34 today. Remains on amiodarone drip with no further ventricular tachycardia noted. PHYSICAL EXAM: VITAL SIGNS: Reviewed. GENERAL: Well-developed in no acute distress. HEENT: Head is normocephalic. Pupils are equal, round. Sclerae anicteric. Mucous membranes of the mouth are moist. Neck supple. No JVD or thyromegaly LUNGS: Respirations even and unlabored. Lungs diminished to auscultation bilaterally. HEART: Regular rate and rhythm. S1 and S2 heard. ABDOMEN: Soft. Nondistended. Nontender. EXTREMITIES: Normal range of motion. No clubbing or cyanosis. Peripheral pulses intact. 2-3+ bilateral lower extremity edema NEUROLOGIC: Awake and alert. Oriented x 3. ASSESSMENT: Dizziness, presyncope possibly related to ventricular tachycardia episode Nausea and vomiting Possible urinary tract infection Ventricular tachycardia Abnormal troponins, possible NSTEMI however less likely type I mechanism Ischemic cardiomyopathy with known ejection fraction of 30-35% Coronary artery disease with previous CABG Acute on chronic systolic congestive heart failure History of AAA repair Hypertension Hyperlipidemia Diabetes Acute kidney injury Acute on chronic respiratory failure may be a component of heart failure versus pulmonary fibrosis PLAN: Await 2-D echo. Creatinine increasing which may be related to ATN, possibly related to starting lisinopril versus over diuresis however less likely. Repeat chest x-ray still shows mild pulmonary fibrosis. Change Lasix to oral. Change amiodarone drip to amiodarone oral 400 mg twice a day. Await 2-D echo and if if remains low and AICD would be indicated. Patient may need an ischemic workup however his creatinine is increasing and he did have monomorphic VT. Attempt to stabilize his respiratory standpoint. Objective - Vital Signs Vital signs: Vital Signs Temp 100.2 F H 01/26/21 04:00 Pulse 79 01/26/21 07:00 Resp 23 01/26/21 07:00 BP 119/65 01/26/21 07:00 Pulse Ox 94 L 01/26/21 07:00 Intake & Output 01/25/21 01/26/21 01/26/21 18:59 06:59 18:59 Intake Total 111.333 224.171 Output Total 485 50 Balance -373.667 174.171 Weight 124.8 kg Intake: Intake, IV Titration 111.333 224.171 Amount Amiodarone 450 mg In 224.171 Dextrose 5% in Water 250 ml @ 0.5 MG/MIN 16.667 mls/hr IV .Q15H [facility] Rx#: [id number] Heparin Sod,Pork in 0.45% 111.333 NaCl 25,000 unit In 0.45 % NaCl 1 250ml.bag @ 8. 479 UNITS/KG/HR 10 mls/hr IV .Q24H [facility] Rx#: [id number] Output: Urine 485 50 Other: Voiding Method Indwelling Catheter # Bowel Movements 1 - Labs CBC & Chem 7: 01/26/21 07:51 01/26/21 07:51 Labs: Abnormal Lab Results - Last 24 Hours (Table) 01/25/21 01/25/21 01/25/21 Range/Units 09:24 09:24 15:05 RBC (4.30-5.90) m/uL MCV (80.0-100.0) fL MCH (25.0-35.0) pg Plt Count (150-450) k/uL Macrocytosis APTT (22.0-30.0) sec ABG pH (7.35-7.45) ABG pCO2 (35-45) mmHg ABG HCO3 (21-25) mmol/L ABG Total CO2 (19-24) mmol/L ABG O2 Saturation (94-97) % Chloride (98-107) mmol/L BUN (9-20) mg/dL Creatinine (0.66-1.25) mg/dL Glucose (74-99) mg/dL POC Glucose (mg/dL) (75-99) mg/dL Troponin I 0.088 H* 0.096 H* (0.000-0.034) ng/mL Total Protein (6.3-8.2) g/dL Albumin (3.5-5.0) g/dL Vitamin B12 <150.0 L (200.0-944.0) pg/mL 01/25/21 01/25/21 01/25/21 Range/Units 17:47 18:46 21:48 RBC (4.30-5.90) m/uL MCV (80.0-100.0) fL MCH (25.0-35.0) pg Plt Count (150-450) k/uL Macrocytosis APTT (22.0-30.0) sec ABG pH 7.22 L (7.35-7.45) ABG pCO2 63 H (35-45) mmHg ABG HCO3 26 H (21-25) mmol/L ABG Total CO2 28 H (19-24) mmol/L ABG O2 Saturation 97.3 H (94-97) % Chloride (98-107) mmol/L BUN (9-20) mg/dL Creatinine (0.66-1.25) mg/dL Glucose (74-99) mg/dL POC Glucose (mg/dL) 160 H (75-99) mg/dL Troponin I 0.192 H* (0.000-0.034) ng/mL Total Protein (6.3-8.2) g/dL Albumin (3.5-5.0) g/dL Vitamin B12 (200.0-944.0) pg/mL 01/26/21 01/26/21 01/26/21 Range/Units 07:51 07:51 07:51 RBC 4.05 L (4.30-5.90) m/uL MCV 110.8 H (80.0-100.0) fL MCH 36.0 H (25.0-35.0) pg Plt Count 145 L (150-450) k/uL Macrocytosis Marked A APTT 53.1 H (22.0-30.0) sec ABG pH (7.35-7.45) ABG pCO2 (35-45) mmHg ABG HCO3 (21-25) mmol/L ABG Total CO2 (19-24) mmol/L ABG O2 Saturation (94-97) % Chloride 108 H (98-107) mmol/L BUN 26 H (9-20) mg/dL Creatinine 1.34 H (0.66-1.25) mg/dL Glucose 169 H (74-99) mg/dL POC Glucose (mg/dL) (75-99) mg/dL Troponin I (0.000-0.034) ng/mL Total Protein 5.7 L (6.3-8.2) g/dL Albumin 3.3 L (3.5-5.0) g/dL Vitamin B12 (200.0-944.0) pg/mL Microbiology - Last 24 Hours (Table) 01/25/21 02:24 Urine Culture - Preliminary Urine,Voided
--- NOTE | 2021-01-26 10:44 | XR ---
EXAMINATION TYPE: XR chest 1V portable DATE OF EXAM: 01/26/2021 Comparison: 01/25/2021 Clinical History: 85-year-old male CHF, SOB Findings: Median sternotomy wires are present with postoperative clips in the mediastinum. Heart remains enlarg ed. Worsening interstitial and vascular density and developing patchy density right mid and lower sabina g. Possible trace effusion on the right. Impression: Worsening CHF now with interstitial pulmonary edema and developing patchy airspace opacity right mid and lower lung. Suspected trace right effusion.
--- NOTE | 2021-01-26 14:40 | P.PN ---
Subjective 85-year-old male came in with the complains of nausea vomiting which started yesterday and was also having some retrosternal chest pain. Patient does have history of his heart failure coronary artery disease CABG in the past patient previous ejection fraction is around 30-35% patient doesn't have a defibrillator at this time. Patient does have extensive bilateral pedal edema, was also having shortness of breath, chest x-ray was read as pulmonary fibrosis, patient has BNP of 866. Patient doesn't have any symptoms of UTI fever or leukocytosis does have abnormal urine with elevated white blood cell count of 182 because of which I believe patient was started on Unasyn. Patient has some ST depressions in the inferior leads although patient had similar findings in the previous EKGs as well patient does have elevated troponins very mild and stable at 0.042 and episodes of wide complex tachycardia possibly SVT. 01/26/2021 Patient was evaluated by cardiology they believe patient has been to her tachycardia and patient has a EF of around the 30-35% and probably will need AICD placement. Patient's creatinine went up probably because of the lisinopril, and this will be discontinued and patient's her diuretics are being held at this time as well because the acute renal failure probably patient need to be resumed on that patient still has crackles on exam still has pulmonary edema. Patient has mild hematuria, patient is also in his and patient has low- grade fevers urine cultures are showing enterococcus and gram-negative bacilli b oth of which are covered by Unasyn Constitutional: Denied any fatigue denied any fever. Cardio vascular: denied any chest pain, palpitations Gastrointestinal denied any nausea vomiting Pulmonary: Patient remains significant short of breath Neurologic denied any new focal deficits All inpatient medications were reviewed and appropriate changes in these medications as dictated in the interval history and assessment and plan. PHYSICAL EXAMINATION: GENERAL: The patient is alert and oriented x3, not in any acute distress. Obese patient is on 10 L of oxygen by nasal cannula HEENT: Pupils are round and equally reacting to light. EOMI. No scleral icterus. No conjunctival pallor. Normocephalic, atraumatic. No pharyngeal erythema. No thyromegaly. CARDIOVASCULAR: S1 and S2 present. No murmurs, rubs, or gallops. PULMONARY: Chest is clear to auscultation, no wheezing or crackles. ABDOMEN: Soft, nontender, nondistended, normoactive bowel sounds. No palpable organomegaly. MUSCULOSKELETAL: No joint swelling or deformity. EXTREMITIES: No cyanosis, clubbing, extensive bilateral pedal edema N EUROLOGICAL: Gross neurological examination did not reveal any focal deficits. SKIN: No rashes. Assessment and plan Nausea vomiting, presyncope believed to be secondary to ventricular tachycardia episode of cardio evaluated the patient the repeat echocardiogram showed EF of around 35% patient may need AICD as per cardiology -Went to tachycardia: Patient is on intravenous amiodarone -Possibility of urinary tract infection for which patient is on Unasyn urine cultures are showing enterococcus and gram-negative bacilli -Acute renal failure secondary to JANA inhibitor which will be discontinued patient's the diuretic therapy is also being held but the will need a diuretic therapy because of acute hypoxic respiratory failure eventually -Acute respiratory failure: Secondary to pulmonary edema -COPD with possible exacerbation patient will be started on inhaled steroids if patient heart rate control and patient was started on -Mild elevation of troponins: Cardiology evaluated the patient they do not believe patient has type I non-ST elevation TX -Excessive bilateral pedal edema possibly of congestive heart failure chronic systolic dysfunction with acute exacerbation -Benign prostatic hypertrophy -Hyperlipidemia -Coronary artery disease DVT prophylaxis: Presently on IV heparin Objective - Vital Signs Vital signs: Vital Signs Temp 100.2 F H 01/26/21 04:00 Pulse 79 01/26/21 07:00 Resp 23 01/26/21 07:00 BP 119/65 01/26/21 07:00 Pulse Ox 94 L 01/26/21 07:00 Intake & Output 01/25/21 01/26/21 01/26/21 18:59 06:59 18:59 Intake Total 111.333 345.110 Output Total 485 50 Balance -373.667 295.110 Weight 124.8 kg Intake: Intake, IV Titration 111.333 345.110 Amount Amiodarone 450 mg In 224.171 Dextrose 5% in Water 250 ml @ 0.5 MG/MIN 16.667 mls/hr IV .Q15H [facility] Rx#: [id number] Heparin Sod,Pork in 0.45% 111.333 120.939 NaCl 25,000 unit In 0.45 % NaCl 1 250ml.bag @ 8. 479 UNITS/KG/HR 10 mls/hr IV .Q24H [facility] Rx#: [id number] Output: Urine 485 50 Other: Voiding Method Indwelling Catheter # Bowel Movements 1 - Labs CBC & Chem 7: 01/26/21 07:51 01/26/21 07:51 Labs: Abnormal Lab Results - Last 24 Hours (Table) 01/25/21 01/25/21 01/25/21 Range/Units 09:24 15:05 17:47 RBC (4.30-5.90) m/uL MCV (80.0-100.0) fL MCH (25.0-35.0) pg Plt Count (150-450) k/uL Macrocytosis APTT (22.0-30.0) sec ABG pH 7.22 L (7.35-7.45) ABG pCO2 63 H (35-45) mmHg ABG HCO3 26 H (21-25) mmol/L ABG Total CO2 28 H (19-24) mmol/L ABG O2 Saturation 97.3 H (94-97) % Chloride (98-107) mmol/L BUN (9-20) mg/dL Creatinine (0.66-1.25) mg/dL Glucose (74-99) mg/dL POC Glucose (mg/dL) (75-99) mg/dL Troponin I 0.096 H* (0.000-0.034) ng/mL Total Protein (6.3-8.2) g/dL Albumin (3.5-5.0) g/dL Vitamin B12 <150.0 L (200.0-944.0) pg/mL 01/25/21 01/25/21 01/26/21 Range/Units 18:46 21:48 07:51 RBC 4.05 L (4.30-5.90) m/uL MCV 110.8 H (80.0-100.0) fL MCH 36.0 H (25.0-35.0) pg Plt Count 145 L (150-450) k/uL Macrocytosis Marked A APTT (22.0-30.0) sec ABG pH (7.35-7.45) ABG pCO2 (35-45) mmHg ABG HCO3 (21-25) mmol/L ABG Total CO2 (19-24) mmol/L ABG O2 Saturation (94-97) % Chloride (98-107) mmol/L BUN (9-20) mg/dL Creatinine (0.66-1.25) mg/dL Glucose (74-99) mg/dL POC Glucose (mg/dL) 160 H (75-99) mg/dL Troponin I 0.192 H* (0.000-0.034) ng/mL Total Protein (6.3-8.2) g/dL Albumin (3.5-5.0) g/dL Vitamin B12 (200.0-944.0) pg/mL 01/26/21 01/26/21 Range/Units 07:51 07:51 RBC (4.30-5.90) m/uL MCV (80.0-100.0) fL MCH (25.0-35.0) pg Plt Count (150-450) k/uL Macrocytosis APTT 53.1 H (22.0-30.0) sec ABG pH (7.35-7.45) ABG pCO2 (35-45) mmHg ABG HCO3 (21-25) mmol/L ABG Total CO2 (19-24) mmol/L ABG O2 Saturation (94-97) % Chloride 108 H (98-107) mmol/L BUN 26 H (9-20) mg/dL Creatinine 1.34 H (0.66-1.25) mg/dL Glucose 169 H (74-99) mg/dL POC Glucose (mg/dL) (75-99) mg/dL Troponin I (0.000-0.034) ng/mL Total Protein 5.7 L (6.3-8.2) g/dL Albumin 3.3 L (3.5-5.0) g/dL Vitamin B12 (200.0-944.0) pg/mL Microbiology - Last 24 Hours (Table) 01/25/21 02:24 Urine Culture - Preliminary Urine,Voided Group D Enterococcus Gram Neg Bacilli
--- NOTE | 2021-01-26 16:18 | P.CNPUL ---
History of Present Illness Consult date: 01/26/21 Reason for consult: dyspnea, hypoxemia Chief complaint: Shortness of breath History of present illness: Patient is a 85-year-old male who came into the hospital with retrosternal chest pain along with shortness of breath also having problems associated nausea vomiting patient has extensive third spacing with lower extremity edema, his history significant for cardiomyopathy likely ischemic with ejection fraction 30-35%, patient has a pulmonary fibrosis BNP was 866, patient denies any cough or sputum production denies any fever or chills, patient also has some ST segment changes, patient is well-known to cardiovascular services, due to shortness of breath has been placed on BiPAP currently patient is on 12/60-60% oxygen repeat echocardiogram revealed ejection fraction 20%, patient is no code DO NOT RESUSCITATE and DO NOT INTUBATE, patient has some runs of wide complex tachycardia as well as supraventricular tachycardia has been placed on IV amiodarone which will be discontinued later on tonight and patient was started on by mouth amiodarone, his labs are significant for white cell count of 8000, hemoglobin and hematocrit 14 and 44, platelet count 1 45,000, patient is on heparin drip PTT is 53, arterial blood gas revealed pH of 7.22 pCO2 63 pO2 of 100, patient has been IV Lasix changed to by mouth as BUN/creatinine from 20/0.9 10/25/2025/1.34, drops are 0.088 and 0.192, urinalysis positive for leukocyte esterase, few RBCs and WBCs, PCR is negative chest x-ray shows the bilateral mild pulmonary fibrosis along with cardiomegaly compared to prior exam no significant change which was performed on 09/25/2019 1 repeat chest x-ray shows worsening of CHF changes along with air space disease, small pleural effusion seen, monitor strip continue show A. fib/atrial flutter with controlled ventricular response, patient is not on pressors, noted that patient has been on IV Unasyn for cellulitis of the lower extremity and possible pneumonia would recommend to DC it due to sodium load and replace it with IV Rocephin once daily Review of Systems All systems: negative Past Medical History Past Medical History: Chest Pain / Angina, Heart Failure, CVA/TIA, Hyperlipidemia, Hypertension, Myocardial Infarction (NE), Osteoarthritis (OA), Prostate Disorder Additional Past Medical History / Comment(s): kidney stones, gout,tia 2005, mi 1987 and 1988, IN PAST TOOK MEDS FOR DM-NO LONGER TAKES MEDS OR CHECKS BS. Last Myocardial Infarction Date:: 1988 History of Any Multi-Drug Resistant Organisms: None Reported Past Surgical History: Coronary Bypass/CABG, Heart Catheterization With Stent, Tonsillectomy Additional Past Surgical History / Comment(s): left hip replacement 2009,lt inguinal hernia repair, cystocopy,turp,quad cabg 1995 had heart cath w/ stent after cabg,aaa reapir 2000, dianne cataracts, lt hand sx (revison of amp lt thumb), kidney stones removed, vasectomy. Past Anesthesia/Blood Transfusion Reactions: No Reported Reaction Date of Last Stent Placement:: unk Past Psychological History: No Psychological Hx Reported Past Alcohol Use History: Occasional Past Drug Use History: None Reported - Past Family History Mother Family Medical History: Myocardial Infarction (NE) Father Family Medical History: Myocardial Infarction (NE) Medications and Allergies Home Medications Medication Instructions Recorded Confirmed Type Budesonide/Formoterol Fumarate 2 puff INHALATION RT-BID 08/30/16 01/25/21 History [Symbicort 160-4.5 Mcg Inhaler] Dipyridamole-Aspirin 200-25 mg 1 tab PO BID 08/30/16 01/25/21 History [Aggrenox 25MG -200MG] Tamsulosin HCl [Flomax] 0.4 mg PO BID 08/30/16 01/25/21 History allopurinoL [Zyloprim] 300 mg PO HS 08/30/16 01/25/21 History Atorvastatin [Lipitor] 40 mg PO HS #30 tablet 08/14/17 01/25/21 Rx Metoprolol Tartrate 12.5 mg PO HS 09/25/19 01/25/21 History Albuterol Sulfate [Ventolin HFA] 2 puff INHALATION RT-Q6H PRN 01/25/21 01/25/21 History Escitalopram [Lexapro] 5 mg PO DAILY 01/25/21 01/25/21 History Hydrochlorothiazide 12.5 mg PO DAILY 01/25/21 01/25/21 History [hydroCHLOROthiazide] Allergies Allergy/AdvReac Type Severity Reaction Status Date / Time cephalexin [From Keflex] Allergy Rash/Hives Verified 01/25/21 08:46 ciprofloxacin [From Cipro] Allergy Rash/Hives Verified 01/25/21 08:46 Physical Exam Vitals: Vital Signs Temp Pulse Resp BP Pulse Ox 01/26/21 07:00 79 23 119/65 94 L 01/26/21 06:00 71 21 112/65 98 01/26/21 05:00 68 18 108/66 95 01/26/21 04:00 100.2 F H 68 21 109/75 95 01/26/21 03:00 68 18 117/69 97 01/26/21 02:00 69 21 128/84 98 01/26/21 01:00 77 20 139/82 96 01/26/21 00:00 70 17 126/78 97 01/25/21 23:00 66 15 122/70 98 01/25/21 22:00 100.4 F H 73 22 117/77 94 L 01/25/21 21:35 97.8 F 73 20 132/70 98 01/25/21 20:57 76 01/25/21 20:41 76 25 H 96 01/25/21 20:00 78 25 H 130/86 97 01/25/21 19:44 77 21 129/85 95 01/25/21 19:34 77 20 125/84 96 01/25/21 17:22 89 36 H 164/88 93 L 01/25/21 17:20 81 36 H 168/113 86 L 01/25/21 17:00 80 36 H 177/98 78 L Intake and Output 01/26/21 01/26/21 01/26/21 06:59 14:59 22:59 Intake Total 111.333 345.110 Output Total 485 50 Balance -373.667 295.110 Intake: Intake, IV Titration 111.333 345.110 Amount Amiodarone 450 mg In 224.171 Dextrose 5% in Water 250 ml @ 0.5 MG/MIN 16.667 mls/hr IV .Q15H [facility] Rx#: [id number] Heparin Sod,Pork in 0.45% 111.333 120.939 NaCl 25,000 unit In 0.45 % NaCl 1 250ml.bag @ 8. 479 UNITS/KG/HR 10 mls/hr IV .Q24H [facility] Rx#: [id number] Output: Urine 485 50 Other: Voiding Method Indwelling Catheter # Bowel Movements 1 Weight 124.8 kg - Constitutional General appearance: cooperative, disheveled, mild distress - EENT Eyes: EOMI, PERRLA Ears: bilateral: normal - Neck Neck: normal ROM Carotids: bilateral: upstroke normal - Respiratory Respiratory: bilateral: diminished - Cardiovascular Rhythm: irregularly irregular Heart sounds: normal: S1, S2 - Gastrointestinal General gastrointestinal: decreased bowel sounds - Integumentary +3 edema in lower extremity up to the level of knees - Neurologic Neurologic: CNII-XII intact - Musculoskeletal Musculoskeletal: gait normal, generalized weakness, strength equal bilaterally Results - Laboratory Findings CBC and BMP: 01/26/21 07:51 01/26/21 07:51 ABG ABG pH 7.22 (7.35-7.45) L 01/25/21 17:47 ABG pCO2 63 mmHg (35-45) H 01/25/21 17:47 ABG pO2 100 mmHg (83-108) 01/25/21 17:47 ABG O2 Saturation 97.3 % (94-97) H 01/25/21 17:47 PT/INR, D-dimer PT 11.3 sec (9.0-12.0) 01/26/21 07:51 INR 1.1 (<1.2) 01/26/21 07:51 Abnormal lab findings: Abnormal Labs 01/25/21 01/25/21 01/25/21 02:24 02:24 02:24 RBC 3.99 L MCV 106.5 H MCH Plt Count 143 L Macrocytosis APTT ABG pH ABG pCO2 ABG HCO3 ABG Total CO2 ABG O2 Saturation Chloride BUN Creatinine Glucose 143 H POC Glucose (mg/dL) Troponin I Total Protein Albumin Vitamin B12 Urine Protein 1+ H Urine Blood Small H Ur Leukocyte Esterase Large H Urine RBC 18 H Urine WBC >182 H Urine WBC Clumps Few H Urine Mucus Rare H 01/25/21 01/25/21 01/25/21 02:24 06:29 09:24 RBC MCV MCH Plt Count Macrocytosis APTT ABG pH ABG pCO2 ABG HCO3 ABG Total CO2 ABG O2 Saturation Chloride BUN Creatinine Glucose POC Glucose (mg/dL) Troponin I 0.037 H* 0.042 H* 0.088 H* Total Protein Albumin Vitamin B12 Urine Protein Urine Blood Ur Leukocyte Esterase Urine RBC Urine WBC Urine WBC Clumps Urine Mucus 01/25/21 01/25/21 01/25/21 09:24 15:05 17:47 RBC MCV MCH Plt Count Macrocytosis APTT ABG pH 7.22 L ABG pCO2 63 H ABG HCO3 26 H ABG Total CO2 28 H ABG O2 Saturation 97.3 H Chloride BUN Creatinine Glucose POC Glucose (mg/dL) Troponin I 0.096 H* Total Protein Albumin Vitamin B12 <150.0 L Urine Protein Urine Blood Ur Leukocyte Esterase Urine RBC Urine WBC Urine WBC Clumps Urine Mucus 01/25/21 01/25/21 01/26/21 18:46 21:48 07:51 RBC 4.05 L MCV 110.8 H MCH 36.0 H Plt Count 145 L Macrocytosis Marked A APTT ABG pH ABG pCO2 ABG HCO3 ABG Total CO2 ABG O2 Saturation Chloride BUN Creatinine Glucose POC Glucose (mg/dL) 160 H Troponin I 0.192 H* Total Protein Albumin Vitamin B12 Urine Protein Urine Blood Ur Leukocyte Esterase Urine RBC Urine WBC Urine WBC Clumps Urine Mucus 01/26/21 01/26/21 07:51 07:51 RBC MCV MCH Plt Count Macrocytosis APTT 53.1 H ABG pH ABG pCO2 ABG HCO3 ABG Total CO2 ABG O2 Saturation Chloride 108 H BUN 26 H Creatinine 1.34 H Glucose 169 H POC Glucose (mg/dL) Troponin I Total Protein 5.7 L Albumin 3.3 L Vitamin B12 Urine Protein Urine Blood Ur Leukocyte Esterase Urine RBC Urine WBC Urine WBC Clumps Urine Mucus - Diagnostic Findings Chest x-ray: report reviewed, image reviewed (Finding as noted above) Assessment and Plan Assessment: Acute hypoxic history failure Ischemic cardiomyopathy Acute exacerbation of heart failure with reduced ejection fraction Cellulitis of the lower extremity Urinary tract infection A. fib/flutter with controlled response now Minimal bilateral pulmonary fibrosis atypical at the bases baseline Plan: Continue gentle diuresis Continue BiPAP alternating with the oxygen, would recommend to increase duration of high flow oxygen oxygen with the use of BiPAP each night and when necessary during the day IV Rocephin DC Unasyn Continue heparin for now can be switched to direct oral anticoagulants as per cardiology recommendation Diuretics as per cardiology recommendation Patient is DO NOT RESUSCITATE/DO NOT INTUBATE We'll follow clinical course closely further recommendations pending plan of ca re as per clinical response of patient Patient can be moved out of the ICU to the stepdown selective care Time with Patient: Greater than 30
[2021-01-26] MEDS: AMIODARONE 200 MG TAB PO SCH (20:23)
[2021-01-26] MEDS: ATORVASTATIN 40 MG TAB PO SCH (20:23)
[2021-01-26] MEDS: allopurinoL 300 MG TAB PO SCH (22:26)
[2021-01-27] MEDS: HEPARIN SOD,PORK IN 0.45% NACL 25,000 UNIT in 0.45% NACL 1 250ML.BAG IV SCH (06:20)
[2021-01-27] MEDS: NITROGLYCERIN OINT 1 INCH/GM PACKET TOPICAL SCH ×5 (06:22→23:11)
--- NOTE | 2021-01-27 08:23 | P.PN ---
Subjective HISTORY OF PRESENT ILLNESS: This is a 85 year old male with a past medical history significant for coronary artery disease with previous CABG in 1995, AAA repair in 2000, hypertension, hyperlipidemia, diabetes, ischemic heart myopathy with a known ejection fraction of 30-35%, and congestive heart failure not taking diuretics on a regular basis as he does not like urinating frequently. Patient used to follow in the office with Dr. Wiley. He was last seen in 2019 and reports "I don't see him anyone. I fired him". We have been asked to see the patient in consultation for elevated troponins. Patient examined at the bedside. Patient reports he woke up around midnight and was dizzy. He reports having a few episodes of nausea and vomiting as well which prompted him to come to the hospital. Patient denied any chest pain or pressure. He reports chronic shortness of breath which is at his baseline. She did have an episode in the emergency room of ventricular tachycardia. He received amiodarone and procainamide and converted to sinus mechanism. EKG reveals sinus mechanism with right bundle branch block-similar to previous EKGs Chest xray cardiomegaly. Mild pulmonary fibrosis. No heart failure seen. Laboratory data: WBC 6.3. Hemoglobin 13.8. Platelet count 143. Sodium 137. Potassium 4.1. BUN 20. Creatinine 0.98. ProBNP 166. Troponin 0.037. 0.042. 0.088. Current home cardiac medications include hydrochlorothiazide 12.5 mg daily, metoprolol tartrate 12.5 mg at night, Aggrenox 70892 milligrams twice a day, Lipitor 40 mg daily Most recent echocardiogram obtained in 2017 revealed ejection fraction 30-35%, basal lateral, basal inferior, basal inferior septal, mid lateral, and mid inferior LV wall hypokinesis. Anterior septal hypokinesis. Her to severe mitral regurgitation. Mild tricuspid regurgitation. Borderline pulmonary hypertension. 01/26 Patient seen and examined. Patient transferred to ICU secondary to respiratory distress. Patient off and on BiPAP. Denies any chest pain or pressure. He has been diuresed. Echo pending. Creatinine increased to 1.34 today. Remains on amiodarone drip with no further ventricular tachycardia noted. 01/27 Patient seen and examined. Patient denies any chest pain or pressure. Still on the Heparin Drip and His Urine Is Somewhat Darker Today. No Hematuria noted. Blood work pending however yesterday increasing creatinine and was changed to oral Lasix. Pulmonology consult appreciated with possibility of some degree of pulmonary fibrosis however x-ray from September 2019 did not show that significant of only fibrosis. Spoke with son who admits that he has had a steady decline since his passed in May 2020. He is very short of breath with minimal activity such as walking to the bathroom at home. PHYSICAL EXAM: VITAL SIGNS: Reviewed. GENERAL: Well-developed in no acute distress. HEENT: Head is normocephalic. Pupils are equal, round. Sclerae anicteric. Mucous membranes of the mouth are moist. Neck supple. No JVD or thyromegaly LUNGS: Respirations even and unlabored. Lungs diminished to auscultation bilaterally. HEART: Regular rate and rhythm. S1 and S2 heard. ABDOMEN: Soft. Nondistended. Nontender. EXTREMITIES: Normal range of motion. No clubbing or cyanosis. Peripheral pulses intact. 2-3+ bilateral lower extremity edema NEUROLOGIC: Awake and alert. Oriented x 3. ASSESSMENT: Dizziness, presyncope possibly related to ventricular tachycardia episode Nausea and vomiting, resolved Possible urinary tract infection Ventricular tachycardia Abnormal troponins, possible NSTEMI however less likely type I mechanism Ischemic cardiomyopathy with mild decrease in ejection fraction 20-25%, previous 30-35% Coronary artery disease with previous CABG Acute on chronic systolic congestive heart failure History of AAA repair Hypertension Hyperlipidemia Diabetes Acute kidney injury Acute on chronic respiratory failure may be a component of heart failure versus pulmonary fibrosis. PLAN: Patient's main presentation was of presyncope which may have been related to ventricular tachycardia. He does however have significant respiratory failure and there may be some chronic component as family states he has been severely short of breath with minimal activity for last few months. Discussed with son regarding recommendations for AICD however would only be indicated if life expectancy expected greater than 1 year and also depends on family wishes. Discussed that it may be reasonable to continue with medical therapy at this time and see if patient is able to recover from a respiratory and debility standpoint as son admits that patient would not want to live been bedbound. Therefore we will continue with medical therapy and may consider discharge and outpatient AICD if patient improves. Also discussed possible catheterization to evaluate for coronary artery disease or right heart catheterization for filling pressures and at this time son does not desire this. Continue with oral Lasix. Await creatinine from this morning. JANA inhibitor on hold secondary acute kidney injury. Add hydralazine 25 mg 3 times a day. Objective - Vital Signs Vital signs: Vital Signs Temp 98.7 F 01/27/21 04:00 Pulse 78 01/27/21 04:00 Resp 16 01/27/21 04:00 BP 118/73 01/27/21 04:00 Pulse Ox 95 01/27/21 04:00 Intake & Output 01/26/21 01/27/21 01/27/21 18:59 06:59 18:59 Intake Total 1155.110 612.227 Output Total 895 625 Balance 260.110 -12.773 Weight 118.6 kg Intake: IV 210 40 .9 KVO 110 40 Ampicillin-Sulbactam 3 gm 100 In Sodium Chloride 0.9% 100 ml @ 200 mls/hr IVPB Q8H [facility] Rx#:[id number] Intake, IV Titration 345.110 472.227 Amount Amiodarone 450 mg In 224.171 222.227 Dextrose 5% in Water 250 ml @ 0.5 MG/MIN 16.667 mls/hr IV .Q15H [facility] Rx#: [id number] Heparin Sod,Pork in 0.45% 120.939 250 NaCl 25,000 unit In 0.45 % NaCl 1 250ml.bag @ 8. 479 UNITS/KG/HR 10 mls/hr IV .Q24H [facility] Rx#: [id number] Oral 600 100 Output: Urine 895 625 Other: Voiding Method Indwelling Catheter Indwelling Catheter - Labs CBC & Chem 7: 01/26/21 07:51 01/26/21 07:51 Labs: Abnormal Lab Results - Last 24 Hours (Table) 01/26/21 01/26/21 01/26/21 Range/Units 07:51 07:51 07:51 RBC 4.05 L (4.30-5.90) m/uL MCV 110.8 H (80.0-100.0) fL MCH 36.0 H (25.0-35.0) pg Plt Count 145 L (150-450) k/uL Macrocytosis Marked A APTT 53.1 H (22.0-30.0) sec Chloride 108 H (98-107) mmol/L BUN 26 H (9-20) mg/dL Creatinine 1.34 H (0.66-1.25) mg/dL Glucose 169 H (74-99) mg/dL Total Protein 5.7 L (6.3-8.2) g/dL Albumin 3.3 L (3.5-5.0) g/dL 01/27/21 Range/Units 05:57 RBC (4.30-5.90) m/uL MCV (80.0-100.0) fL MCH (25.0-35.0) pg Plt Count (150-450) k/uL Macrocytosis APTT 39.5 H (22.0-30.0) sec Chloride (98-107) mmol/L BUN (9-20) mg/dL Creatinine (0.66-1.25) mg/dL Glucose (74-99) mg/dL Total Protein (6.3-8.2) g/dL Albumin (3.5-5.0) g/dL Microbiology - Last 24 Hours (Table) 01/25/21 02:24 Urine Culture - Preliminary Urine,Voided Group D Enterococcus Gram Neg Bacilli
[2021-01-27] MEDS: SYMBICORT 160-4.5 MCG INHALER INHALATION SCH ×2 (08:39→21:16)
[2021-01-27] MEDS: PANTOPRAZOLE 40 MG/10 ML VIAL IV SCH (09:23)
[2021-01-27] MEDS: HEPARIN SODIUM,PORCINE/PF 5,000 UNIT/0.5 ML SYRINGE SQ SCH ×3 (09:33→23:11)
[2021-01-27] MEDS: METOPROLOL TARTRATE 25 MG TAB PO SCH ×2 (09:35→20:40)
[2021-01-27] MEDS: ASPIRIN 81 MG PO SCH (09:35)
[2021-01-27] MEDS: FUROSEMIDE 40 MG TAB PO SCH (09:36)
[2021-01-27] MEDS: TAMSULOSIN 0.4 MG CAP.ER.24H PO SCH ×2 (09:36→20:40)
[2021-01-27] MEDS: hydrALAZINE HCL 25 MG TAB PO SCH ×3 (09:36→20:40)
[2021-01-27] MEDS: AMIODARONE 200 MG TAB PO SCH ×2 (09:36→20:40)
[2021-01-27] MEDS: ESCITALOPRAM 5 MG TAB PO SCH (09:52)
[2021-01-27] MEDS: FUROSEMIDE 10 MG/ML 4 ML VIAL IV SCH ×2 (11:53→20:40)
--- NOTE | 2021-01-27 12:57 | CONS ---
CONSULTATION REASON FOR CONSULTATION: Renal failure. HISTORY OF PRESENT ILLNESS: Patient is an 85-year-old male who was admitted to the hospital on 01/25/2021 with complaints of nausea, vomiting and chest pain. He does have underlying history of coronary artery disease and CHF with ejection fraction 30% to 35%. Patient was also found to have a urinary tract infection and is maintained on antibiotics. He has had wide-complex tachycardia, possibly SVT since hospitalization. Patient is being followed by Cardiology. Patient's blood pressure had been on the lower side, with systolic in the 97 range earlier in the afternoon yesterday. Currently patient is maintained on Lasix which is p.o. He had been on the lisinopril, which is now discontinued. Serum creatinine was 0.98 on initial admission and increased to 1.34 yesterday. We do not have any labs from today. Troponin has been borderline and increased to 0.192. Patient has an indwelling Márquez catheter; 24-hour urine output at 1.5 L. PAST MEDICAL HISTORY: Significant for hypertension coronary artery disease, CHF, cardiomyopathy, CVA, TIA, hyperlipidemia, hypertension, osteoarthritis, BPH, history of kidney stones, gout, TIA. PAST SURGICAL HISTORY: Cardiac catheterization, coronary stent placement, tonsillectomy, coronary artery bypass surgery, left hip arthroplasty, inguinal hernia repair, cystoscopy, aortic aneurysm repair, abdominal aortic aneurysm repair, cataract surgeries, removal of kidney stones, vasectomy. SOCIAL HISTORY: Negative for smoking, drug abuse or alcohol abuse. MEDICATIONS: Medications prior to admission included Aggrenox, inhalers, tamsulosin, Zyloprim, Lipitor, metoprolol, Lexapro, hydrochlorothiazide. ALLERGIES: ALLERGIES INCLUDE KEFLEX AND CIPRO, both of which cause rash and hives. REVIEW OF SYSTEMS: As per HPI. Other systems negative. PHYSICAL EXAMINATION: Patient is comfortable, awake. He is not in any acute distress. Blood pressure 118/73, heart rate 95 per minute. He had been on BiPAP, currently on a non-rebreather. EXAMINATION OF THE HEART: S1 and S2. EXAMINATION OF LUNGS: Decreased breath sounds at the bases. Abdomen is soft, obese, distended, non-tender. Examination of lower extremities shows edema bilaterally 2+. 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 Labs show sodium 138, potassium 4.3, chloride 108. CO2 is 24, BUN 26, creatinine 1.34, hemoglobin 14.6 g/dL. UA shows 1+ protein, small blood, WBCs more than 182. Urine culture is growing Gram-negative bacilli and group D Enterococcus. ASSESSMENT: 1. Acute kidney injury secondary to hypotension/hypoperfusion with episodes of arrhythmia and low blood pressure with systolic around 97 mmHg. Patient had been on JANA inhibitors, which are now discontinued. He is volume-overloaded. I will increase his diuretics. We will repeat labs today and then again in a.m. No nephrotoxic agents on board at this time. Avoid hypotension. 2. Urinary tract infection with urine culture growing Gram-negative bacilli and group D Enterococcus, maintained on Unasyn. 3. Hypertension; blood pressure on the lower side currently. 4. Cardiac arrhythmia with ventricular tachycardia, maintained on amiodarone. 5. Borderline elevated troponin; being followed by Cardiology. 6. History of abdominal aortic aneurysm. 7. Cardiomyopathy, ejection fraction of 20% to 25% on current echocardiogram; previously 30% to 35%. 8. Acute hypoxic respiratory failure, currently on BiPAP. Patient is hypervolemic. We will increase his diuresis. PLAN: Change Lasix to IV. Continue to hold lisinopril. Continue antibiotics. Repeat labs today and then again in a.m. Avoid hypotension. Thank you for this consultation. Will continue to follow the patient with you during his hospitalization. MMODL / IJN: [id number] /
--- NOTE | 2021-01-27 14:39 | P.PN ---
Subjective 85-year-old male came in with the complains of nausea vomiting which started yesterday and was also having some retrosternal chest pain. Patient does have history of his heart failure coronary artery disease CABG in the past patient previous ejection fraction is around 30-35% patient doesn't have a defibrillator at this time. Patient does have extensive bilateral pedal edema, was also having shortness of breath, chest x-ray was read as pulmonary fibrosis, patient has BNP of 866. Patient doesn't have any symptoms of UTI fever or leukocytosis does have abnormal urine with elevated white blood cell count of 182 because of which I believe patient was started on Unasyn. Patient has some ST depressions in the inferior leads although patient had similar findings in the previous EKGs as well patient does have elevated troponins very mild and stable at 0.042 and episodes of wide complex tachycardia possibly SVT. 01/26/2021 Patient was evaluated by cardiology they believe patient has been to her tachycardia and patient has a EF of around the 30-35% and probably will need AICD placement. Patient's creatinine went up probably because of the lisinopril, and this will be discontinued and patient's her diuretics are being held at this time as well because the acute renal failure probably patient need to be resumed on that patient still has crackles on exam still has pulmonary edema. Patient has mild hematuria, patient is also in his and patient has low- grade fevers urine cultures are showing enterococcus and gram-negative bacilli b oth of which are covered by Unasyn 01/27/2021 BMP from today is not available. Patient is bit better today patient is having good urine output patient patient was again switched back to IV diuretics nephrology evaluated the patient. Patient is on Rocephin which was ordered by pulmonary. Patient is still having fevers all consulted infectious disease he is urinating is positive but less than 100,000 colonies of E. coli and enterococcus patient will be switched back to Rocephin. Nephrology evaluated the patient as well. She does pretty status also improved and patient is presently on 3 L of oxygen. Patient overall looks better today. Constitutional: Denied any fatigue denied any fever. Cardio vascular: denied any chest pain, palpitations Gastrointestinal denied any nausea vomiting Pulmonary: Patient remains significant short of breath Neurologic denied any new focal deficits All inpatient medications were reviewed and appropriate changes in these medications as dictated in the interval history and assessment and plan. PHYSICAL EXAMINATION: GENERAL: The patient is alert and oriented x3, not in any acute distress. Obese patient is on 10 L of oxygen by nasal cannula HEENT: Pupils are round and equally reacting to light. EOMI. No scleral icterus. No conjunctival pallor. Normocephalic, atraumatic. No pharyngeal erythema. No thyromegaly. CARDIOVASCULAR: S1 and S2 present. No murmurs, rubs, or gallops. PULMONARY: Chest is clear to auscultation, no wheezing or crackles. ABDOMEN: Soft, nontender, nondistended, normoactive bowel sounds. No palpable organomegaly. MUSCULOSKELETAL: No joint swelling or deformity. EXTREMITIES: No cyanosis, clubbing, extensive bilateral pedal edema NEUROLOGICAL: Gross neurological examination did not reveal any focal deficits. SKIN: No rashes. Assessment and plan -Acute respiratory failure: Secondary to pulmonary edema from congestive heart failure chronic systolic dysfunction with acute exacerbation patient is being resumed on IV Lasix again. Nausea vomiting, presyncope believed to be secondary to ventricular tachycardia episode of cardio evaluated the patient the repeat echocardiogram showed EF of around 35% patient may need AICD as per cardiology -Ventricular tachycardia: Patient is on intravenous amiodarone -Possibility of urinary tract infection for which patient is on Unasyn urine cultures are showing enterococcus and gram-negative bacilli -Acute renal failure secondary to JANA inhibitor which will be discontinued patient was resumed on IV diuretic therapy -COPD with possible exacerbation patient will be started on inhaled steroids if patient heart rate control and patient was started on -Mild elevation of troponins: Cardiology evaluated the patient they do not believe patient has type I non-ST elevation OR -Excessive bilateral pedal edema possibly of congestive heart failure chronic systolic dysfunction with acute exacerbation -Benign prostatic hypertrophy -Hyperlipidemia -Coronary artery disease DVT prophylaxis: Presently on IV heparin Objective - Vital Signs Vital signs: Vital Signs Temp 100.5 F H 01/27/21 12:49 Pulse 75 01/27/21 12:49 Resp 18 01/27/21 12:49 BP 118/72 01/27/21 12:49 Pulse Ox 99 01/27/21 12:49 Intake & Output 01/26/21 01/27/21 01/27/21 18:59 06:59 18:59 Intake Total 1155.110 612.227 700 Output Total 701 488 7902 Balance 260.110 -12.773 -550 Weight 118.6 kg Intake: IV 210 40 100 .9 KVO 110 40 Ampicillin-Sulbactam 3 gm 100 100 In Sodium Chloride 0.9% 100 ml @ 200 mls/hr IVPB Q8H [facility] Rx#:[id number] Intake, IV Titration 345.110 472.227 Amount Amiodarone 450 mg In 224.171 222.227 Dextrose 5% in Water 250 ml @ 0.5 MG/MIN 16.667 mls/hr IV .Q15H [facility] Rx#: [id number] Heparin Sod,Pork in 0.45% 120.939 250 NaCl 25,000 unit In 0.45 % NaCl 1 250ml.bag @ 8. 479 UNITS/KG/HR 10 mls/hr IV .Q24H [facility] Rx#: [id number] Oral 600 100 600 Output: Urine 969 706 6757 Other: Voiding Method Indwelling Catheter Indwelling Catheter Indwelling Catheter - Labs CBC & Chem 7: 01/26/21 07:51 01/26/21 07:51 Labs: Abnormal Lab Results - Last 24 Hours (Table) 01/27/21 Range/Units 05:57 APTT 39.5 H (22.0-30.0) sec Microbiology - Last 24 Hours (Table) 01/25/21 02:24 Urine Culture - Preliminary Urine,Voided Group D Enterococcus Gram Neg Bacilli
[2021-01-27 15:52] LABS: Calcium 8.8 mg/dL (8.4-10.2); Potassium 4.5 mmol/L (3.5-5.1)
[2021-01-27] MEDS: ATORVASTATIN 40 MG TAB PO SCH (20:41)
[2021-01-27] MEDS: allopurinoL 300 MG TAB PO SCH (20:41)
[2021-01-27] MEDS: AMPICILLIN-SULBACTAM 3 GM in SODIUM CHLORIDE 0.9% 100 ML IVPB SCH (20:41)
[2021-01-27] MEDS ORDERED: AMPICILLIN-SULBACTAM 3 GM in SODIUM CHLORIDE 0.9% 100 ML IVPB SCH (21:00)
[2021-01-28] MEDS: AMPICILLIN-SULBACTAM 3 GM in SODIUM CHLORIDE 0.9% 100 ML IVPB SCH ×2 (06:46→11:55)
[2021-01-28] MEDS: NITROGLYCERIN OINT 1 INCH/GM PACKET TOPICAL SCH ×4 (06:46→22:49)
[2021-01-28] MEDS: SYMBICORT 160-4.5 MCG INHALER INHALATION SCH ×2 (10:05→18:53)
[2021-01-28 10:09] LABS: Potassium 3.9 mmol/L (3.5-5.1)
[2021-01-28] MEDS: AMIODARONE 200 MG TAB PO SCH ×2 (11:52→20:00)
[2021-01-28] MEDS: TAMSULOSIN 0.4 MG CAP.ER.24H PO SCH ×2 (11:52→20:00)
[2021-01-28] MEDS: PANTOPRAZOLE 40 MG/10 ML VIAL IV SCH (11:52)
[2021-01-28] MEDS: METOPROLOL TARTRATE 25 MG TAB PO SCH ×2 (11:52→20:00)
[2021-01-28] MEDS: FUROSEMIDE 10 MG/ML 4 ML VIAL IV SCH ×2 (11:53→20:00)
[2021-01-28] MEDS: ASPIRIN 81 MG PO SCH (11:53)
[2021-01-28] MEDS: hydrALAZINE HCL 25 MG TAB PO SCH ×3 (11:53→20:00)
[2021-01-28] MEDS: HEPARIN SODIUM,PORCINE/PF 5,000 UNIT/0.5 ML SYRINGE SQ SCH ×3 (11:53→22:49)
[2021-01-28] MEDS: ESCITALOPRAM 5 MG TAB PO SCH (11:56)
--- NOTE | 2021-01-28 12:47 | PN ---
PROGRESS NOTE HISTORY: The patient is seen for followup for acute kidney injury. His renal function is stable. Patient is currently being diuresed. Lasix was added yesterday at 40 mg q.12 hours. PHYSICAL EXAMINATION: On examination today, blood pressure 125/63, heart rate 72 per minute he is afebrile. Examination of the heart S1, S2. Examination of the lungs, bilateral breath sounds are heard. Abdomen is soft, nontender. Examination of lower extremities shows edema 2+ bilaterally. [employer] exam is grossly intact. LABS: Sodium 136, potassium 3.9, BUN 29, creatinine 1.36, BUN 29, creatinine 1.36. ASSESSMENT: 1. Acute kidney injury secondary to hypotension hypoperfusion currently improved. JANA inhibitors are on hold. The patient is being diuresed he has an indwelling Márquez catheter, 24 hour urine output of about 4.3 L. I will check an ultrasound of his kidneys as well. 2. Volume overload. Continue with current dose of Lasix. 3. Congestive heart failure exacerbation, EF 20-25 percent. 4. Hematuria, mostly traumatic can DC Márquez catheter. 5. Enterococcus faecalis and Pseudomonas urinary tract infection, maintained on antibiotics. PLAN: Continue with IV Lasix. Can DC Márquez catheter. Repeat labs in a.m. continue antibiotics for UTI. MMODL / IJN: [id number] /
--- NOTE | 2021-01-28 13:34 | P.PN ---
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 Patient used to follow in the office with Dr. Wiley. He was last seen in 2019 and reports "I don't see him anyone. I fired him". We have been asked to see the patient in consultation for elevated troponins. Patient examined at the bedside. Patient reports he woke up around midnight and was dizzy. He reports having a few episodes of nausea and vomiting as well which prompted him to come to the hospital. Patient denied any chest pain or pressure. He reports chronic shortness of breath which is at his baseline. She did have an episode in the emergency room of ventricular tachycardia. He received amiodarone and procainamide and converted to sinus mechanism. EKG reveals sinus mechanism with right bundle branch block-similar to previous EKGs Chest xray cardiomegaly. Mild pulmonary fibrosis. No heart failure seen. Laboratory data: WBC 6.3. Hemoglobin 13.8. Platelet count 143. Sodium 137. Potassium 4.1. BUN 20. Creatinine 0.98. ProBNP 166. Troponin 0.037. 0.042. 0.088. Current home cardiac medications include hydrochlorothiazide 12.5 mg daily, metoprolol tartrate 12.5 mg at night, Aggrenox 57177 milligrams twice a day, Lipitor 40 mg daily Most recent echocardiogram obtained in 2018 revealed ejection fraction 30-35%, basal lateral, basal inferior, basal inferior septal, mid lateral, and mid inferior LV wall hypokinesis. Anterior septal hypokinesis. Her to severe mitral regurgitation. Mild tricuspid regurgitation. Borderline pulmonary hypertension. Addendum entered and electronically signed by Diego Dumas DO 01/25/21 17:53: Patient with a lightheaded, near syncopal episode yesterday which is new for patient. Seen with son at bedside who admits patient is somewhat stoic and does not complain much. Denied any preceding chest pain or pressure however did get nauseous with vomiting after near syncopal episode. Noted to have episode of VT captured on EKG which he was fairly asymptomatic for and has not reoccurred. Initial workup showing mildly elevated troponins which may have been from Type 2 mechanism from a possible VT episode. Apparently patient had never been considered for AICD however would be willing and may be indicated if EF remains <35%. Denies any angina type chest pain similar to his prior CABG. Unclear role of UTI. Patient reexamined later in the day secondary to increased respiratory rate however had stated was fairly asymptomatic. We will attempt nitro drip for acute on chronic heart failure as well as diuretics and optimize heart failure regimen, added lisinopril and increased metoprolol to 25mg bid. Continue amiodarone drip. Prognosis guarded. Check 2D echo. 01/26 Patient seen and examined. Patient transferred to ICU secondary to respiratory distress. Patient off and on BiPAP. Denies any chest pain or pressure. He has been diuresed. Echo pending. Creatinine increased to 1.34 today. Remains on amiodarone drip with no further ventricular tachycardia noted. 01/27 Patient seen and examined. Patient denies any chest pain or pressure. Still on the Heparin Drip and His Urine Is Somewhat Darker Today. No Hematuria noted. Blood work pending however yesterday increasing creatinine and was changed to oral Lasix. Pulmonology consult appreciated with possibility of some degree of pulmonary fibrosis however x-ray from September 2019 did not show that significant of only fibrosis. Spoke with son who admits that he has had a steady decline since his passed in May 2020. He is very short of breath with minimal activity such as walking to the bathroom at home. 01/28/2021 Patient examined this morning on the cardiac stepdown Unit. Patient Is Sitting up in the Chair. Patient Denies Chest Pain or Pressure. He denies shortness of breath. He remains on 5 L nasal cannula. No signs are stable. PHYSICAL EXAM: VITAL SIGNS: Reviewed. GENERAL: Well-developed in no acute distress. HEENT: Head is normocephalic. Pupils are equal, round. Sclerae anicteric. Mucous membranes of the mouth are moist. Neck supple. No JVD or thyromegaly LUNGS: Respirations even and unlabored. Lungs diminished to auscultation bilate rally. HEART: Regular rate and rhythm. S1 and S2 heard. ABDOMEN: Soft. Nondistended. Nontender. EXTREMITIES: Normal range of motion. No clubbing or cyanosis. Peripheral pulses intact. 2-3+ bilateral lower extremity edema NEUROLOGIC: Awake and alert. Oriented x 3. ASSESSMENT: Dizziness, presyncope possibly related to ventricular tachycardia episode Nausea and vomiting, resolved Possible urinary tract infection Ventricular tachycardia Abnormal troponins, possible NSTEMI however less likely type I mechanism Ischemic cardiomyopathy with mild decrease in ejection fraction 20-25%, previous 30-35% Coronary artery disease with previous CABG Acute on chronic systolic congestive heart failure History of AAA repair Hypertension Hyperlipidemia Diabetes Acute kidney injury Acute on chronic respiratory failure may be a component of heart failure versus pulmonary fibrosis. PLAN: Continue current cardiac medications Continue IV Lasix per nephrology Monitor kidney function Daily weights Acute I&O JANA inhibitor remains on hold secondary to acute kidney injury Dr. Dumas spoke with son regarding right heart catheterization and son does not desire to have this completed. He also discussed possible outpatient AICD if the patient's overall condition improves. Further recommendations pending patient course Nurse practitioner note has been reviewed by physician. Signing provider agrees with the documented findings, assessment, and plan of care. Objective - Vital Signs Vital signs: Vital Signs Temp 98.5 F 01/28/21 04:00 Pulse 72 01/28/21 04:00 Resp 18 01/28/21 04:00 BP 125/63 01/28/21 04:00 Pulse Ox 95 01/28/21 10:06 Intake & Output 01/27/21 01/28/21 01/28/21 18:59 06:59 18:59 Intake Total 820 1200 Output Total 2350 2000 600 Balance -1530 -1999 600 Weight 118.4 kg Intake: IV 100 Ampicillin-Sulbactam 3 gm 100 In Sodium Chloride 0.9% 100 ml @ 200 mls/hr IVPB Q8H [facility] Rx#:[id number] Oral 720 1200 Output: Urine 2350 2000 600 Other: Voiding Method Indwelling Catheter Indwelling Catheter # Bowel Movements 0 - Labs CBC & Chem 7: 01/26/21 07:51 01/28/21 08:14 Labs: Abnormal Lab Results - Last 24 Hours (Table) 01/27/21 01/28/21 Range/Units 15:29 08:14 Sodium 136 L 136 L (137-145) mmol/L BUN 31 H 29 H (9-20) mg/dL Creatinine 1.46 H 1.36 H (0.66-1.25) mg/dL Glucose 174 H 167 H (74-99) mg/dL Microbiology - Last 24 Hours (Table) 01/25/21 02:24 Urine Culture - Final Urine,Voided Enterococcus faecalis Pseudomonas aeruginosa
--- NOTE | 2021-01-28 15:43 | P.PN ---
Subjective Progress Note Date: 01/28/21 85-year-old male came in with the complains of nausea vomiting which started yesterday and was also having some retrosternal chest pain. Patient does have history of his heart failure coronary artery disease CABG in the past patient previous ejection fraction is around 30-35% patient doesn't have a defibrillator at this time. Patient does have extensive bilateral pedal edema, was also having shortness of breath, chest x-ray was read as pulmonary fibrosis, patient has BNP of 866. Patient doesn't have any symptoms of UTI fever or leukocytosis does have abnormal urine with elevated white blood cell count of 182 because of which I believe patient was started on Unasyn. Patient has some ST depressions in the inferior leads although patient had similar findings in the previous EKGs as well patient does have elevated troponins very mild and stable at 0.042 and episodes of wide complex tachycardia possibly SVT. 01/26/2021 Patient was evaluated by cardiology they believe patient has been to her t achycardia and patient has a EF of around the 30-35% and probably will need AICD placement. Patient's creatinine went up probably because of the lisinopril, and this will be discontinued and patient's her diuretics are being held at this time as well because the acute renal failure probably patient need to be resumed on that patient still has crackles on exam still has pulmonary edema. Patient h as mild hematuria, patient is also in his and patient has low-grade fevers urine cultures are showing enterococcus and gram-negative bacilli both of which are covered by Unasyn 01/27/2021 BMP from today is not available. Patient is bit better today patient is having good urine output patient patient was again switched back to IV diuretics nephrology evaluated the patient. Patient is on Rocephin which was ordered by pulmonary. Patient is still having fevers all consulted infectious disease he is urinating is positive but less than 100,000 colonies of E. coli and enterococcus patient will be switched back to Rocephin. Nephrology evaluated the patient as well. She does pretty status also improved and patient is presently on 3 L of oxygen. Patient overall looks better today. 01/28/2021 Patient evaluated today sitting in a chair. He denies any cough, chest pain, palpitations or shortness of breath. He is on IV diuretics. Creatinine today is 1.36, BUN 29, sodium 136. We'll repeat labs tomorrow. Urine culture positive for E. coli and pseudomonas, we will treat with oral Augmentin. IDC in place, there is still hematuria present which is most likely due to traumatic insertion of Márquez catheter. Márquez catheter can be discontinued for voiding trial. Ultrasound kidney ordered by nephrology. Vital signs show a blood pressure 125/63 is 98% on 4 L nasal cannula. Afebrile. Repeat echocardiogram shows an EF of 20-25% with moderate concentric left ventricular hypertrophy, mo derate mitral regurgitation, severe pulmonary hypertension, mild tricuspid regurgitation, mild aortic stenosis. Cardiology was recommending a right heart cath which family refused, pending for an AICD outpatient if stable. ROS Constitutional: Denied any fatigue denied any fever. Cardio vascular: denied any chest pain, palpitations Gastrointestinal denied any nausea vomiting Pulmonary: Patient's shortness of breath at rest is improving, however he is still dyspneic with exertion. Neurologic denied any new focal deficits All inpatient medications were reviewed and appropriate changes in these medications as dictated in the interval history and assessment and plan. PHYSICAL EXAMINATION: GENERAL: The patient is alert and oriented x3, not in any acute distress. Obese patient is on 4-5L oxygen via nasal cannula HEENT: Pupils are round and equally reacting to light. EOMI. No scleral icterus. No conjunctival pallor. Normocephalic, atraumatic. No pharyngeal erythema. No thyromegaly. CARDIOVASCULAR: S1 and S2 present. No murmurs, rubs, or gallops. PULMONARY: Chest is clear to auscultation, no wheezing or crackles. ABDOMEN: Soft, nontender, nondistended, normoactive bowel sounds. No palpable organomegaly. : IDC catheter in place with hematuria MUSCULOSKELETAL: No joint swelling or deformity. EXTREMITIES: No cyanosis, clubbing, extensive bilateral pedal edema NEUROLOGICAL: Gross neurological examination did not reveal any focal deficits. SKIN: No rashes. Assessment and plan -Acute respiratory failure: Secondary to pulmonary edema from congestive heart failure requiring 4 -5 L oxygen via nasal cannula -Chronic congestive heart failure, systolic dysfunction with acute exacerbation, EF 20-25% - IV lasix -Ischemic cardiomyopathy, EF 20-35%; previously 30-35% -Severe pulmonary hypertension, family is refusing a right heart cath at this time -Nausea/vomiting, presyncope believed to be secondary to ventricular tachycardia episode - cardiology recommending an AICD outpatient when stable -Ventricular tachycardia: Patient transitioned to oral amiodarone -UTI without sepsis, present on admission, culture positive for enterococcus faecalis and pseudomonas aeruginosa, transitioned to oral augmentin. -Acute renal failure secondary to hypotension hypoperfusion, JANA inhibitor discontinued patient was resumed on IV diuretic therapy -COPD with possible exacerbation patient will be started on inhaled steroids if patient heart rate control and patient was started on -Mild elevation of troponins: Cardiology evaluated the patient they do not believe patient has type I non-ST elevation MA -Benign prostatic hypertrophy -Hyperlipidemia -Coronary artery disease s/p CABG and cardiac catheterization with stents DVT prophylaxis: SQ heparin GI Prophylaxis: Protonix Subacute rehab on discharge once medically stable Objective - Vital Signs Vital signs: Vital Signs Temp 98.5 F 01/28/21 04:00 Pulse 72 01/28/21 04:00 Resp 18 01/28/21 04:00 BP 125/63 01/28/21 04:00 Pulse Ox 95 01/28/21 10:06 Intake & Output 01/27/21 01/28/21 01/28/21 18:59 06:59 18:59 Intake Total 820 600 Output Total 2350 2000 600 Balance -1530 -2000 0 Weight 118.4 kg Intake: IV 100 Ampicillin-Sulbactam 3 gm 100 In Sodium Chloride 0.9% 100 ml @ 200 mls/hr IVPB Q8H [facility] Rx#:[id number] Oral 720 600 Output: Urine 2350 2000 600 Other: Voiding Method Indwelling Catheter Indwelling Catheter # Bowel Movements 0 - Labs CBC & Chem 7: 01/26/21 07:51 01/28/21 08:14 Labs: Abnormal Lab Results - Last 24 Hours (Table) 01/27/21 01/28/21 Range/Units 15:29 08:14 Sodium 136 L 136 L (137-145) mmol/L BUN 31 H 29 H (9-20) mg/dL Creatinine 1.46 H 1.36 H (0.66-1.25) mg/dL Glucose 174 H 167 H (74-99) mg/dL Microbiology - Last 24 Hours (Table) 01/25/21 02:24 Urine Culture - Final Urine,Voided Enterococcus faecalis Pseudomonas aeruginosa Assessment and Plan Time with Patient: Greater than 30
--- NOTE | 2021-01-28 16:55 | P.PN ---
Subjective Progress Note Date: 01/28/21 Principal diagnosis: Acute hypoxic history failure Ischemic cardiomyopathy Acute exacerbation of heart failure with reduced ejection fraction Cellulitis of the lower extremity Urinary tract infection A. fib/flutter with controlled response now Minimal bilateral pulmonary fibrosis atypical at the bases baseline 01/28/2021, patient sitting upright in chair breathing comfortably has been diarrheas labs reviewed medications reviewed, family present at bedside care plan discussed with family at length, appetite continued to improve progressively the severity or shortness of breath and third spacing significantly improved Patient is a 85-year-old male who came into the hospital with retrosternal chest pain along with shortness of breath also having problems associated nausea vomiting patient has extensive third spacing with lower extremity edema, his history significant for cardiomyopathy likely ischemic with ejection fraction 30-35%, patient has a pulmonary fibrosis BNP was 866, patient denies any cough or sputum production denies any fever or chills, patient also has some ST segment changes, patient is well-known to cardiovascular services, due to shortness of breath has been placed on BiPAP currently patient is on 12/60-60% oxygen repeat echocardiogram revealed ejection fraction 20%, patient is no code DO NOT RESUSCITATE and DO NOT INTUBATE, patient has some runs of wide complex tachycardia as well as supraventricular tachycardia has been placed on IV amiodarone which will be discontinued later on tonight and patient was started on by mouth amiodarone, his labs are significant for white cell count of 8000, hemoglobin and hematocrit 14 and 44, platelet count 1 45,000, patient is on heparin drip PTT is 53, arterial blood gas revealed pH of 7.22 pCO2 63 pO2 of 100, patient has been IV Lasix changed to by mouth as BUN/creatinine from 20/0.9 10/25/2025/1.34, drops are 0.088 and 0.192, urinalysis positive for leukocyte esterase, few RBCs and WBCs, PCR is negative chest x-ray shows the bilateral mild pulmonary fibrosis along with cardiomegaly compared to prior exam no significant change which was performed on 09/25/2019 1 repeat chest x-ray shows worsening of CHF changes along with air space disease, small pleural effusion seen, monitor strip continue show A. fib/atrial flutter with controlled ventricular response, patient is not on pressors, noted that patient has been on IV Unasyn for cellulitis of the lower extremity and possible pneumonia would recommend to DC it due to sodium load and replace it with IV Rocephin once daily Objective - Vital Signs Vital signs: Vital Signs Temp 98.5 F 01/28/21 04:00 Pulse 72 01/28/21 04:00 Resp 18 01/28/21 04:00 BP 125/63 01/28/21 04:00 Pulse Ox 95 01/28/21 10:06 Intake & Output 01/27/21 01/28/21 01/28/21 18:59 06:59 18:59 Intake Total 820 1200 Output Total 2350 1999 1800 Balance -153 -1999 -600 Weight 118.4 kg Intake: IV 100 Ampicillin-Sulbactam 3 gm 100 In Sodium Chloride 0.9% 100 ml @ 200 mls/hr IVPB Q8H [facility] Rx#:[id number] Oral 720 1200 Output: Urine 2350 1999 1800 Uretheral (Márquez) 600 Other: Voiding Method Indwelling Catheter Indwelling Catheter # Bowel Movements 0 - Exam - Constitutional General appearance: cooperative, disheveled, mild distress - EENT Eyes: EOMI, PERRLA Ears: bilateral: normal - Neck Neck: normal ROM Carotids: bilateral: upstroke normal - Respiratory Respiratory: bilateral: diminished - Cardiovascular Rhythm: irregularly irregular Heart sounds: normal: S1, S2 - Gastrointestinal General gastrointestinal: decreased bowel sounds - Integumentary +3 edema in lower extremity up to the level of knees - Neurologic Neurologic: CNII-XII intact - Musculoskeletal Musculoskeletal: gait normal, generalized weakness, strength equal bilaterally - Labs CBC & Chem 7: 01/26/21 07:51 01/28/21 08:14 Labs: Abnormal Lab Results - Last 24 Hours (Table) 01/28/21 Range/Units 08:14 Sodium 136 L (137-145) mmol/L BUN 29 H (9-20) mg/dL Creatinine 1.36 H (0.66-1.25) mg/dL Glucose 167 H (74-99) mg/dL Microbiology - Last 24 Hours (Table) 01/25/21 02:24 Urine Culture - Final Urine,Voided Enterococcus faecalis Pseudomonas aeruginosa Assessment and Plan Assessment: Acute hypoxic history failure Ischemic cardiomyopathy Acute exacerbation of heart failure with reduced ejection fraction Cellulitis of the lower extremity Urinary tract infection A. fib/flutter with controlled response now Minimal bilateral pulmonary fibrosis atypical at the bases baseline Plan: Continue gentle diuresis Continue BiPAP alternating with the oxygen, would recommend to increase duration of high flow oxygen oxygen with the use of BiPAP each night and when necessary during the day Noted patient is on oral Augmentin Heparin subcu as per cardiology service Diuretics as per cardiology recommendation Patient is DO NOT RESUSCITATE/DO NOT INTUBATE We'll follow clinical course closely further recommendations pending plan of care as per clinical response of patient Patient can be moved out of the ICU to the stepdown selective care Time with Patient: Greater than 30
[2021-01-28] MEDS: allopurinoL 300 MG TAB PO SCH (20:00)
[2021-01-28] MEDS: AMOXIC-POT CLAV 875-125MG 1 EACH TAB PO SCH (20:00)
[2021-01-28] MEDS: ATORVASTATIN 40 MG TAB PO SCH (20:00)
[2021-01-29] MEDS: NITROGLYCERIN OINT 1 INCH/GM PACKET TOPICAL SCH ×3 (06:27→17:12)
[2021-01-29] MEDS: FUROSEMIDE 10 MG/ML 4 ML VIAL IV SCH ×2 (08:22→19:54)
[2021-01-29] MEDS: HEPARIN SODIUM,PORCINE/PF 5,000 UNIT/0.5 ML SYRINGE SQ SCH ×2 (08:22→17:12)
[2021-01-29] MEDS: AMIODARONE 200 MG TAB PO SCH ×2 (08:23→19:55)
[2021-01-29] MEDS: TAMSULOSIN 0.4 MG CAP.ER.24H PO SCH ×2 (08:23→19:54)
[2021-01-29] MEDS: ASPIRIN 81 MG PO SCH (08:23)
[2021-01-29] MEDS: hydrALAZINE HCL 25 MG TAB PO SCH ×3 (08:23→19:54)
[2021-01-29] MEDS: PANTOPRAZOLE 40 MG/10 ML VIAL IV SCH (08:23)
[2021-01-29] MEDS: ESCITALOPRAM 5 MG TAB PO SCH (08:23)
[2021-01-29] MEDS: METOPROLOL TARTRATE 25 MG TAB PO SCH ×2 (08:23→19:54)
[2021-01-29] MEDS: AMOXIC-POT CLAV 875-125MG 1 EACH TAB PO SCH ×2 (08:23→19:55)
[2021-01-29] MEDS: SYMBICORT 160-4.5 MCG INHALER INHALATION SCH ×2 (08:32→21:07)
--- NOTE | 2021-01-29 11:57 | PN ---
PROGRESS NOTE The patient is seen for followup for acute kidney injury. He is currently being diuresed for volume overload. Renal function has been stable. Creatinine staying at 1.3 mg/dL. PHYSICAL EXAMINATION: On examination today, blood pressure 123/51, heart rate 74 per minute. He is afebrile. Examination of the heart S1, S2. Examination of lungs, bilateral breath sounds are heard. Decreased breath sounds at the bases. Abdomen is soft, obese, nontender. Examination of lower extremities shows edema 2+ bilaterally with chronic skin changes. STONECUTTER HAND exam grossly intact. LAB: Show sodium 136, potassium 3.9, BUN 29, creatinine 1.36 yesterday. No labs from today. ASSESSMENT: 1. Acute kidney injury secondary to hypotension and hypoperfusion, now improved. JANA inhibitors remain on hold. Patient is being diuresed. 2. Volume overload. Continue with current dose of Lasix. 3. Congestive heart failure, EF 20-25 percent. 4. Enterococcus faecalis and Pseudomonas urinary tract infection, maintained on antibiotics. PLAN: Continue with IV Lasix. Avoid nephrotoxic agents. Repeat labs in a.m. Avoid hypotension. Continue with Flomax as well. MMODL / IJN: [id number] /
--- NOTE | 2021-01-29 19:20 | P.PN ---
Subjective HISTORY OF PRESENT ILLNESS: This is a 85 year old male with a past medical history significant for coronary artery disease with previous CABG in 1995, AAA repair in 2000, hypertension, hyperlipidemia, diabetes, ischemic heart myopathy with a known ejection fraction of 30-35%, and congestive heart failure not taking diuretics on a regular basis as he does not like urinating frequently. Patient used to follow in the office with Dr. Wiley. He was last seen in 2019 and reports "I don't see him anyone. I fired him". We have been asked to see the patient in consultation for elevated troponins. Patient examined at the bedside. Patient reports he woke up around midnight and was dizzy. He reports having a few episodes of nausea and vomiting as well which prompted him to come to the hospital. Patient denied any chest pain or pressure. He reports chronic shortness of breath which is at his baseline. She did have an episode in the emergency room of ventricular tachycardia. He received amiodarone and procainamide and converted to sinus mechanism. EKG reveals sinus mechanism with right bundle branch block-similar to previous EKGs Chest xray cardiomegaly. Mild pulmonary fibrosis. No heart failure seen. Laboratory data: WBC 6.3. Hemoglobin 13.8. Platelet count 143. Sodium 137. Potassium 4.1. BUN 20. Creatinine 0.98. ProBNP 166. Troponin 0.037. 0.042. 0.088. Current home cardiac medications include hydrochlorothiazide 12.5 mg daily, metoprolol tartrate 12.5 mg at night, Aggrenox 35318 milligrams twice a day, Lipitor 40 mg daily Most recent echocardiogram obtained in 2018 revealed ejection fraction 30-35%, basal lateral, basal inferior, basal inferior septal, mid lateral, and mid inferior LV wall hypokinesis. Anterior septal hypokinesis. Her to severe mitral regurgitation. Mild tricuspid regurgitation. Borderline pulmonary hypertension. Addendum entered and electronically signed by Diego Dumas DO 01/25/21 17:53: Patient with a lightheaded, near syncopal episode yesterday which is new for sravan gupta. Seen with son at bedside who admits patient is somewhat stoic and does not complain much. Denied any preceding chest pain or pressure however did get nauseous with vomiting after near syncopal episode. Noted to have episode of VT captured on EKG which he was fairly asymptomatic for and has not reoccurred. Initial workup showing mildly elevated troponins which may have been from Type 2 mechanism from a possible VT episode. Apparently patient had never been considered for AICD however would be willing and may be indicated if EF remains <35%. Denies any angina type chest pain similar to his prior CABG. Unclear role of UTI. Patient reexamined later in the day secondary to increased respiratory rate however had stated was fairly asymptomatic. We will attempt nitro drip for acute on chronic heart failure as well as diuretics and optimize heart failure regimen, added lisinopril and increased metoprolol to 25mg bid. Continue amiodarone drip. Prognosis guarded. Check 2D echo. 01/26 Patient seen and examined. Patient transferred to ICU secondary to respiratory distress. Patient off and on BiPAP. Denies any chest pain or pressure. He has been diuresed. Echo pending. Creatinine increased to 1.34 today. Remains on amiodarone drip with no further ventricular tachycardia noted. 01/27 Patient seen and examined. Patient denies any chest pain or pressure. Still on the Heparin Drip and His Urine Is Somewhat Darker Today. No Hematuria noted. Blood work pending however yesterday increasing creatinine and was changed to oral Lasix. Pulmonology consult appreciated with possibility of some degree of pulmonary fibrosis however x-ray from September 2019 did not show that significant of only fibrosis. Spoke with son who admits that he has had a steady decline since his passed in May 2020. He is very short of breath with minimal activity such as walking to the bathroom at home. 01/28/2021 Patient examined this morning on the cardiac stepdown Unit. Patient Is Sitting up in the Chair. Patient Denies Chest Pain or Pressure. He denies shortness of breath. He remains on 5 L nasal cannula. No signs are stable. 01/29 Patient seen and examined. Patient denies any chest pain or pressure. He has been making good urine output with IV diuresis and creatinine remained stable. No significant episodes of DVT. On amiodarone loading dose PHYSICAL EXAM: VITAL SIGNS: Reviewed. GENERAL: Well-developed in no acute distress. HEENT: Head is normocephalic. Pupils are equal, round. Sclerae anicteric. Mucous membranes of the mouth are moist. Neck supple. No JVD or thyromegaly LUNGS: Respirations even and unlabored. Lungs diminished to auscultation bilaterally. HEART: Regular rate and rhythm. S1 and S2 heard. ABDOMEN: Soft. Nondistended. Nontender. EXTREMITIES: Normal range of motion. No clubbing or cyanosis. Peripheral pulses intact. 2-3+ bilateral lower extremity edema NEUROLOGIC: Awake and alert. Oriented x 3. ASSESSMENT: Dizziness, presyncope possibly related to ventricular tachycardia episode Nausea and vomiting, resolved Possible urinary tract infection Ventricular tachycardia Abnormal troponins, possible NSTEMI however less likely type I mechanism Ischemic cardiomyopathy with mild decrease in ejection fraction 20-25%, previous 30-35% Coronary artery disease with previous CABG Acute on chronic systolic congestive heart failure History of AAA repair Hypertension Hyperlipidemia Diabetes Acute kidney injury Acute on chronic respiratory failure may be a component of heart failure versus pulmonary fibrosis. PLAN: Continue to optimize heart failure with current medical regimen. Optimize heart failure regimen. Hopeful discharge home and then went discussed possible AICD depending on his progress Objective - Vital Signs Vital signs: Vital Signs Temp 98 F 01/29/21 16:30 Pulse 72 01/29/21 16:30 Resp 20 01/29/21 16:30 BP 146/70 01/29/21 16:30 Pulse Ox 95 01/29/21 16:30 Intake & Output 01/29/21 01/29/21 01/30/21 06:59 18:59 05:59 Intake Total 420 Output Total 1000 1000 Balance -1000 -580 Weight 110 kg Intake: Oral 420 Output: Urine 1000 1000 Other: Voiding Method Indwelling Catheter Indwelling Catheter # Bowel Movements 1 - Labs CBC & Chem 7: 01/26/21 07:51 01/28/21 08:14
[2021-01-29] MEDS: allopurinoL 300 MG TAB PO SCH (19:54)
[2021-01-29] MEDS: ATORVASTATIN 40 MG TAB PO SCH (19:55)
--- NOTE | 2021-01-29 23:07 | P.PN ---
Subjective Progress Note Date: 01/29/21 Principal diagnosis: CHF Exacerbation Mr. Martin is an 85-year-old male with a past medical history of congestive heart failure, hypertension, hyperlipidemia, coronary artery disease, prostate disorder, nephrolithiasis coming to the hospital with a chief complaint of b ilateral lower extremity swelling and difficulty in breathing. Patient had a chest x-ray showing pulmonary edema and labs showed elevated BNP. He is currently being treated for congestive heart failure exacerbation. On 01/29/2021-patient was seen and examined at the bedside. Patient son at the bedside mentioned that his lower extremities edema is getting better. Patient denied having any cough or difficulty in breathing. No chest pain or palpitations. No abdominal pain nausea vomiting or diarrhea. On reviewing the vitals temperature 97.8, heart rate 80, respiratory 20, blood pressure 152/68 saturating at 97% on 3 L of oxygen. Patient's labs are reviewed showing sodium of 136 potassium of 3.9, chloride 101, bicarb 29, BUN 29, creatinine 1.36. Patient's medications have been reviewed. Active Medications Generic Name Dose Route Start Last Admin Trade Name Freq PRN Reason Stop Dose Admin Albuterol Sulfate 2.5 mg 01/25/21 09:08 01/25/21 20:34 Albuterol Nebulized 2.5 Mg/3 Ml INHALATION 2.5 mg RT-Q6H PRN Administration Shortness Of Breath Allopurinol 300 mg 01/25/21 21:00 01/29/21 19:54 Allopurinol 300 Mg Tab PO 300 mg HS BRENNA Administration Amiodarone HCl 400 mg 01/26/21 21:00 01/29/21 19:55 Amiodarone 200 Mg Tab PO 400 mg BID BRENNA Administration Amoxicillin/Clavulanate Potassium 1 each 01/28/21 21:00 01/29/21 19:55 Amoxic-Pot Clav 875-125mg 1 Each Tab PO 1 each Q12HR BRENNA Administration Aspirin 81 mg 01/25/21 09:45 01/29/21 08:23 Aspirin 81 Mg PO 81 mg DAILY BRENNA Administration Atorvastatin Calcium 40 mg 01/25/21 21:00 01/29/21 19:55 Atorvastatin 40 Mg Tab PO 40 mg HS BRENNA Administration Budesonide/Formoterol Fumarate 2 puff 01/25/21 20:00 01/29/21 21:07 Symbicort 160-4.5 Mcg Inhaler INHALATION Not Given RT-BID BRENNA Escitalopram Oxalate 5 mg 01/26/21 09:00 01/29/21 08:23 Escitalopram 5 Mg Tab PO 5 mg DAILY BRENNA Administration Furosemide 40 mg 01/27/21 11:30 01/29/21 19:54 Furosemide 10 Mg/Ml 4 Ml Vial IV 40 mg Q12HR BRENNA Administration Heparin Sodium (Porcine) 5,000 unit 01/27/21 08:45 01/29/21 17:12 Heparin Sodium,Porcine/Pf 5,000 Unit/0.5 Ml Syringe SQ 5,000 unit Q8HR BRENNA Administration Hydralazine HCl 25 mg 01/27/21 09:00 01/29/21 19:54 Hydralazine Hcl 25 Mg Tab PO 25 mg TID BRENNA Administration Metoprolol Tartrate 25 mg 01/25/21 09:30 01/29/21 19:54 Metoprolol Tartrate 25 Mg Tab PO 25 mg BID BRENNA Administration Naloxone HCl 0.2 mg 01/25/21 03:56 Naloxone 0.4 Mg/Ml 1 Ml Vial IV Q2M PRN Opioid Reversal Nitroglycerin 1 inch 01/26/21 00:00 01/29/21 17:12 Nitroglycerin Oint 1 Inch/Gm Packet TOPICAL 1 inch Q6HR BRENNA Administration Ondansetron HCl 4 mg 01/25/21 03:56 01/25/21 18:46 Ondansetron 4 Mg/2 Ml Vial IVP 4 mg Q8HR PRN Administration Nausea And Vomiting Pantoprazole Sodium 40 mg 01/25/21 09:00 01/29/21 08:23 Pantoprazole 40 Mg/10 Ml Vial IV 40 mg DAILY BRENNA Administration Tamsulosin HCl 0.4 mg 01/25/21 21:00 01/29/21 19:54 Tamsulosin 0.4 Mg Cap.Er.24h PO 0.4 mg BID BRENNA Administration Objective - Vital Signs Vital signs: Vital Signs Temp 98 F 01/29/21 12:03 Pulse 70 01/29/21 12:03 Resp 20 01/29/21 12:03 BP 103/59 01/29/21 12:03 Pulse Ox 96 01/29/21 12:03 Intake & Output 01/28/21 01/29/21 01/29/21 18:59 06:59 18:59 Intake Total 1320 420 Output Total 1800 1000 Balance -480 -1000 420 Weight 110 kg Intake: Oral 1320 420 Output: Urine 1800 1000 Uretheral (Márquez) 600 Other: Voiding Method Indwelling Catheter Indwelling Catheter Indwelling Catheter # Bowel Movements 1 1 - Exam PHYSICAL EXAMINATION: GENERAL: The patient is alert and oriented x3, not in any acute distress. Obese patient is on 4-5L oxygen via nasal cannula HEENT: Pupils are round and equally reacting to light. EOMI. No scleral icterus. No conjunctival pallor. Normocephalic, atraumatic. No pharyngeal erythema. No thyromegaly. CARDIOVASCULAR: S1 and S2 present. No murmurs, rubs, or gallops. PULMONARY: Chest is clear to auscultation, no wheezing or crackles. ABDOMEN: Soft, nontender, nondistended, normoactive bowel sounds. No palpable organomegaly. : IDC catheter in place with hematuria MUSCULOSKELETAL: No joint swelling or deformity. EXTREMITIES: No cyanosis, clubbing, extensive bilateral pedal edema NEUROLOGICAL: Gross neurological examination did not reveal any focal deficits. SKIN: No rashes. - Labs CBC & Chem 7: 01/26/21 07:51 01/28/21 08:14 Assessment and Plan Assessment: Assessment and plan -Acute respiratory failure: Secondary to pulmonary edema from congestive heart failure requiring 4 -5 L oxygen via nasal cannula -Chronic congestive heart failure, systolic dysfunction with acute exacerbation, EF 20-25% - IV lasix -Ischemic cardiomyopathy, EF 20-35%; previously 30-35% -Severe pulmonary hypertension, family is refusing a right heart cath at this time -Nausea/vomiting, presyncope believed to be secondary to ventricular tachycardia episode - cardiology recommending an AICD outpatient when stable -Ventricular tachycardia: Patient transitioned to oral amiodarone -UTI without sepsis, present on admission, culture positive for enterococcus faecalis and pseudomonas aeruginosa, transitioned to oral augmentin. -Acute renal failure secondary to hypotension hypoperfusion, JANA inhibitor discontinued patient was resumed on IV diuretic therapy -COPD with possible exacerbation patient will be started on inhaled steroids if patient heart rate control and patient was started on -Mild elevation of troponins: Cardiology evaluated the patient they do not believe patient has type I non-ST elevation FL -Benign prostatic hypertrophy -Hyperlipidemia -Coronary artery disease s/p CABG and cardiac catheterization with stents DVT prophylaxis: SQ heparin GI Prophylaxis: Protonix No CODE PLAN: Patient to be continued on the current medication regimen. Getting IV Lasix and showing significant improvement. Augmentin for his UTI. Continue with breathing treatments. Heparin for DVT prophylaxis. Patient's son actively involved in the care of the patient currently would not want any procedures done and would want to try conservative/medical treatment for now. Multiple consultants including pulmonary, cardiology, nephrology following the patient closely. Further recommendations depending on the progress of the patient
[2021-01-30] MEDS: HEPARIN SODIUM,PORCINE/PF 5,000 UNIT/0.5 ML SYRINGE SQ SCH ×4 (00:22→23:46)
[2021-01-30] MEDS: NITROGLYCERIN OINT 1 INCH/GM PACKET TOPICAL SCH ×5 (06:22→23:46)
--- NOTE | 2021-01-30 06:57 | XR ---
EXAMINATION TYPE: XR chest 1V portable DATE OF EXAM: 01/30/2021 COMPARISON: 01/26/2021 HISTORY: CHF follow-up TECHNIQUE: Single frontal view of the chest is obtained. FINDINGS: There is mild fluffy airspace infiltrates in the right lung base but there has been signif icant reduction compared to prior study. The upper lungs are clear and there is no pulmonary vascular congestion. Heart size is mildly prominent. There are median sternotomy wires otherwise the osseous structures are intact. There is no pneumothorax or large pleural effusion. IMPRESSION: Interval improvement in the right lower lobe infiltrate as described above.
[2021-01-30] MEDS: SYMBICORT 160-4.5 MCG INHALER INHALATION SCH ×2 (07:08→20:05)
--- NOTE | 2021-01-30 08:56 | P.PN ---
Subjective Progress Note Date: 01/30/21 Principal diagnosis: Acute hypoxic history failure Ischemic cardiomyopathy Acute exacerbation of heart failure with reduced ejection fraction Cellulitis of the lower extremity Urinary tract infection A. fib/flutter with controlled response now Minimal bilateral pulmonary fibrosis atypical at the bases baseline 01/30/2021, patient seen eval examined during the rounds labs reviewed medications reviewed care plan discussed, respiratory status remains stable denies any chest pain, patient resting on 3 L, swelling in the lower extremity continued to improve, chest x-ray from today reviewed interval improvement of the left lower lobe infiltrate and effusion is seen 01/28/2021, patient sitting upright in chair breathing comfortably has been diarrheas labs reviewed medications reviewed, family present at bedside care plan discussed with family at length, appetite continued to improve progressively the severity or shortness of breath and third spacing significantly improved Patient is a 85-year-old male who came into the hospital with retrosternal chest pain along with shortness of breath also having problems associated nausea vomiting patient has extensive third spacing with lower extremity edema, his history significant for cardiomyopathy likely ischemic with ejection fraction 30-35%, patient has a pulmonary fibrosis BNP was 866, patient denies any cough or sputum production denies any fever or chills, patient also has some ST segment changes, patient is well-known to cardiovascular services, due to shortness of breath has been placed on BiPAP currently patient is on 12/60-60% oxygen repeat echocardiogram revealed ejection fraction 20%, patient is no code DO NOT RESUSCITATE and DO NOT INTUBATE, patient has some runs of wide complex tachycardia as well as supraventricular tachycardia has been placed on IV amiodarone which will be discontinued later on tonight and patient was started on by mouth amiodarone, his labs are significant for white cell count of 8000, hemoglobin and hematocrit 14 and 44, platelet count 1 45,000, patient is on heparin drip PTT is 53, arterial blood gas revealed pH of 7.22 pCO2 63 pO2 of 100, patient has been IV Lasix changed to by mouth as BUN/creatinine from 20/0.9 10/25/2025/1.34, drops are 0.088 and 0.192, urinalysis positive for leukocyte esterase, few RBCs and WBCs, PCR is negative chest x-ray shows the bilateral mild pulmonary fibrosis along with cardiomegaly compared to prior exam no significant change which was performed on 09/25/2019 1 repeat chest x-ray shows worsening of CHF changes along with air space disease, small pleural effusion seen, monitor strip continue show A. fib/atrial flutter with controlled ventricular response, patient is not on pressors, noted that patient has been on IV Unasyn for cellulitis of the lower extremity and possible pneumonia would recommend to DC it due to sodium load and replace it with IV Rocephin once daily Objective - Vital Signs Vital signs: Vital Signs Temp 97.9 F 01/30/21 04:00 Pulse 79 01/30/21 04:00 Resp 20 01/30/21 04:00 BP 111/69 01/30/21 04:00 Pulse Ox 92 L 01/30/21 04:00 Intake & Output 01/29/21 01/30/21 01/30/21 19:59 06:59 18:59 Intake Total Output Total Balance Weight Intake: Oral Output: Urine Other: Voiding Method # Bowel Movements - Exam - Constitutional General appearance: cooperative, disheveled, mild distress - EENT Eyes: EOMI, PERRLA Ears: bilateral: normal - Neck Neck: normal ROM Carotids: bilateral: upstroke normal - Respiratory Respiratory: bilateral: diminished - Cardiovascular Rhythm: irregularly irregular Heart sounds: normal: S1, S2 - Gastrointestinal General gastrointestinal: decreased bowel sounds - Integumentary +3 edema in lower extremity up to the level of knees - Neurologic Neurologic: CNII-XII intact - Musculoskeletal Musculoskeletal: gait normal, generalized weakness, strength equal bilaterally - Labs CBC & Chem 7: 01/26/21 07:51 01/28/21 08:14 Assessment and Plan Assessment: Acute hypoxic history failure Ischemic cardiomyopathy Acute exacerbation of heart failure with reduced ejection fraction Cellulitis of the lower extremity Urinary tract infection A. fib/flutter with controlled response now Minimal bilateral pulmonary fibrosis atypical at the bases baseline Plan: Continue gentle diuresis Continue BiPAP alternating with the oxygen, would recommend to increase duration of high flow oxygen oxygen with the use of BiPAP each night and when necessary during the day Noted patient is on oral Augmentin to finish 5-7 day therapy Heparin subcu as per cardiology service Diuretics as per cardiology recommendation Patient is DO NOT RESUSCITATE/DO NOT INTUBATE We'll follow clinical course closely further recommendations pending plan of care as per clinical response of patient Patient can be moved out of the ICU to the stepdown selective care Time with Patient: Greater than 30
[2021-01-30] MEDS: AMIODARONE 200 MG TAB PO SCH ×2 (09:57→20:41)
[2021-01-30] MEDS: ASPIRIN 81 MG PO SCH (09:57)
[2021-01-30] MEDS: AMOXIC-POT CLAV 875-125MG 1 EACH TAB PO SCH ×2 (09:58→20:41)
[2021-01-30] MEDS: hydrALAZINE HCL 25 MG TAB PO SCH ×3 (09:58→20:44)
[2021-01-30] MEDS: TAMSULOSIN 0.4 MG CAP.ER.24H PO SCH ×2 (09:58→20:44)
[2021-01-30] MEDS: FUROSEMIDE 10 MG/ML 4 ML VIAL IV SCH ×2 (09:59→20:44)
[2021-01-30] MEDS: ESCITALOPRAM 5 MG TAB PO SCH (09:59)
[2021-01-30] MEDS: METOPROLOL TARTRATE 25 MG TAB PO SCH ×2 (10:00→20:47)
[2021-01-30] MEDS: PANTOPRAZOLE 40 MG/10 ML VIAL IV SCH (10:00)
[2021-01-30 11:01] LABS: Basophils % (A) 1 %; Eosinophils # (A) 0.1 k/uL (0-0.7); Eosinophils % (A) 2 %; HGB 13.7 gm/dL (13.0-17.5); Lymphocytes # (A) 0.9 k/uL (1.0-4.8); Lymphocytes % (A) 18 %; MCH 35.4 pg (25.0-35.0); MCHC 33.3 g/dL (31.0-37.0); MCV 106.4 fL (80.0-100.0); Macrocytosis Moderate; Mean Platelet Volume 8.5; Monocytes # (A) 0.2 k/uL (0-1.0); Monocytes % (A) 5 %; Neutrophils # (A) 3.6 k/uL (1.3-7.7); Neutrophils % (A) 73 %; Platelet Count 142 k/uL (150-450); RBC 3.85 m/uL (4.30-5.90); RDW 13.7 % (11.5-15.5); WBC 4.9 k/uL (3.8-10.6)
[2021-01-30 11:16] LABS: Calcium 9.1 mg/dL (8.4-10.2); Potassium 3.3 mmol/L (3.5-5.1)
--- NOTE | 2021-01-30 11:43 | PN ---
PROGRESS NOTE Patient is seen for followup for acute kidney injury and hypervolemia. He is currently being diuresed. Renal function is fairly stable, with creatinine staying at about 1.4 to 1.3 mg/dL. On examination today, patient is sitting on a bedside chair. He is comfortable. Blood pressure is 111/69, heart rate 79 per minute. He is afebrile. EXAMINATION OF THE HEART: S1 and S2. EXAMINATION OF LUNGS: Decreased breath sounds at the bases. Abdomen is soft, obese. Examination of lower extremities shows edema 1+ bilaterally, currently improved significantly. METAL LEAF LAYER EXAM: Grossly intact. Labs show sodium 136, potassium 3.9, chloride 101 5. Serum creatinine was 1.36. ASSESSMENT: 1. Acute kidney injury secondary to low blood pressure, currently improved; component of cardiorenal syndrome as well. Patient is currently being diuresed. Continue with the Lasix. Check labs today. 2. Volume overload, maintained on Lasix, significantly improved. 3. Congestive heart failure, ejection fraction 20% to 25%. 4. Enterococcus faecalis and Pseudomonas urinary tract infection, maintained on antibiotics. PLAN: Check labs today. Continue with IV Lasix for now. MMODL / IJN: [id number] /
--- NOTE | 2021-01-30 17:21 | P.PN ---
Subjective HISTORY OF PRESENT ILLNESS: This is a 85 year old male with a past medical history significant for coronary artery disease with previous CABG in 1995, AAA repair in 2000, hypertension, hyperlipidemia, diabetes, ischemic heart myopathy with a known ejection fraction of 30-35%, and congestive heart failure not taking diuretics on a regular basis as he does not like urinating frequently. Patient used to follow in the office with Dr. Wiley. He was last seen in 2019 and reports "I don't see him anyone. I fired him". We have been asked to see the patient in consultation for elevated troponins. Patient examined at the bedside. Patient reports he woke up around midnight and was dizzy. He reports having a few episodes of nausea and vomiting as well which prompted him to come to the hospital. Patient denied any chest pain or pressure. He reports chronic shortness of breath which is at his baseline. She did have an episode in the emergency room of ventricular tachycardia. He received amiodarone and procainamide and converted to sinus mechanism. EKG reveals sinus mechanism with right bundle branch block-similar to previous EKGs Chest xray cardiomegaly. Mild pulmonary fibrosis. No heart failure seen. Laboratory data: WBC 6.3. Hemoglobin 13.8. Platelet count 143. Sodium 137. Potassium 4.1. BUN 20. Creatinine 0.98. ProBNP 166. Troponin 0.037. 0.042. 0.088. Current home cardiac medications include hydrochlorothiazide 12.5 mg daily, metoprolol tartrate 12.5 mg at night, Aggrenox 82112 milligrams twice a day, Lipitor 40 mg daily Most recent echocardiogram obtained in 2018 revealed ejection fraction 30-35%, basal lateral, basal inferior, basal inferior septal, mid lateral, and mid inferior LV wall hypokinesis. Anterior septal hypokinesis. Her to severe mitral regurgitation. Mild tricuspid regurgitation. Borderline pulmonary hypertension. Addendum entered and electronically signed by Diego Dumas DO 01/25/21 17:53: Patient with a lightheaded, near syncopal episode yesterday which is new for patient. Seen with son at bedside who admits patient is somewhat stoic and does not complain much. Denied any preceding chest pain or pressure however did get nauseous with vomiting after near syncopal episode. Noted to have episode of VT captured on EKG which he was fairly asymptomatic for and has not reoccurred. Initial workup showing mildly elevated troponins which may have been from Type 2 mechanism from a possible VT episode. Apparently patient had never been considered for AICD however would be willing and may be indicated if EF remains <35%. Denies any angina type chest pain similar to his prior CABG. Unclear role of UTI. Patient reexamined later in the day secondary to increased respiratory rate however had stated was fairly asymptomatic. We will attempt nitro drip for acute on chronic heart failure as well as diuretics and optimize heart failure regimen, added lisinopril and increased metoprolol to 25mg bid. Continue amiodarone drip. Prognosis guarded. Check 2D echo. 01/26 Patient seen and examined. Patient transferred to ICU secondary to respiratory distress. Patient off and on BiPAP. Denies any chest pain or pressure. He has been diuresed. Echo pending. Creatinine increased to 1.34 today. Remains on amiodarone drip with no further ventricular tachycardia noted. 01/27 Patient seen and examined. Patient denies any chest pain or pressure. Still on the Heparin Drip and His Urine Is Somewhat Darker Today. No Hematuria noted. Blood work pending however yesterday increasing creatinine and was changed to oral Lasix. Pulmonology consult appreciated with possibility of some degree of pulmonary fibrosis however x-ray from September 2019 did not show that significant of only fibrosis. Spoke with son who admits that he has had a steady decline since his passed in May 2020. He is very short of breath with minimal activity such as walking to the bathroom at home. 01/28/2021 Patient examined this morning on the cardiac stepdown Unit. Patient Is Sitting up in the Chair. Patient Denies Chest Pain or Pressure. He denies shortness of breath. He remains on 5 L nasal cannula. No signs are stable. 01/29 Patient seen and examined. Patient denies any chest pain or pressure. He has been making good urine output with IV diuresis and creatinine remained stable. No significant episodes of DVT. On amiodarone loading dose 01/30 Patient seen and examined. Patient states he feels much better today. Creatinine continues improved to 1.1 today. States he has been up walking to the bathroom and feels much better. PHYSICAL EXAM: VITAL SIGNS: Reviewed. GENERAL: Well-developed in no acute distress. HEENT: Head is normocephalic. Pupils are equal, round. Sclerae anicteric. Mucous membranes of the mouth are moist. Neck supple. No JVD or thyromegaly LUNGS: Respirations even and unlabored. Lungs diminished to auscultation bilaterally. HEART: Regular rate and rhythm. S1 and S2 heard. ABDOMEN: Soft. Nondistended. Nontender. EXTREMITIES: Normal range of motion. No clubbing or cyanosis. Peripheral pulses intact. 2-3+ bilateral lower extremity edema NEUROLOGIC: Awake and alert. Oriented x 3. ASSESSMENT: Dizziness, presyncope possibly related to ventricular tachycardia episode Nausea and vomiting, resolved Possible urinary tract infection Ventricular tachycardia Abnormal troponins, possible NSTEMI however less likely type I mechanism Ischemic cardiomyopathy with mild decrease in ejection fraction 20-25%, previous 30-35% Coronary artery disease with previous CABG Acute on chronic systolic congestive heart failure History of AAA repair Hypertension Hyperlipidemia Diabetes Acute kidney injury Acute on chronic respiratory failure may be a component of heart failure versus pulmonary fibrosis. PLAN: Continue to optimize heart failure with current medical regimen. Hopeful discharge home and then would discuss possible AICD depending on his progress and if he is able to get back to his previous functional status. Hopeful discharge home or to rehab in the next 24-48 hours. Objective - Vital Signs Vital signs: Vital Signs Temp 97.9 F 01/30/21 04:00 Pulse 64 01/30/21 08:00 Resp 20 01/30/21 04:00 BP 133/78 01/30/21 08:00 Pulse Ox 97 01/30/21 08:00 Intake & Output 01/29/21 01/30/21 01/30/21 19:59 06:59 18:59 Intake Total 360 Output Total 175 Balance 185 Weight Intake: Oral 360 Output: Urine 175 Other: Voiding Method # Voids 1 # Bowel Movements 1 - Labs CBC & Chem 7: 01/30/21 10:45 01/30/21 10:45 Labs: Abnormal Lab Results - Last 24 Hours (Table) 01/30/21 01/30/21 Range/Units 10:45 10:45 RBC 3.85 L (4.30-5.90) m/uL MCV 106.4 H (80.0-100.0) fL MCH 35.4 H (25.0-35.0) pg Plt Count 142 L (150-450) k/uL Lymphocytes # 0.9 L (1.0-4.8) k/uL Sodium 136 L (137-145) mmol/L Potassium 3.3 L (3.5-5.1) mmol/L BUN 26 H (9-20) mg/dL Glucose 213 H (74-99) mg/dL
[2021-01-30] MEDS: ATORVASTATIN 40 MG TAB PO SCH (20:41)
[2021-01-30] MEDS: allopurinoL 300 MG TAB PO SCH (20:41)
--- NOTE | 2021-01-30 23:28 | P.PN ---
Subjective Progress Note Date: 01/30/21 Principal diagnosis: CHF Exacerbation Mr. Martin is an 85-year-old male with a past medical history of congestive heart failure, hypertension, hyperlipidemia, coronary artery disease, prostate disorder, nephrolithiasis coming to the hospital with a chief complaint of b ilateral lower extremity swelling and difficulty in breathing. Patient had a chest x-ray showing pulmonary edema and labs showed elevated BNP. He is currently being treated for congestive heart failure exacerbation. On 01/29/2021-patient was seen and examined at the bedside. Patient son at the bedside mentioned that his lower extremities edema is getting better. Patient denied having any cough or difficulty in breathing. No chest pain or palpitations. No abdominal pain nausea vomiting or diarrhea. On reviewing the vitals temperature 97.8, heart rate 80, respiratory 20, blood pressure 152/68 saturating at 97% on 3 L of oxygen. Patient's labs are reviewed showing sodium of 136 potassium of 3.9, chloride 101, bicarb 29, BUN 29, creatinine 1.36. On 01/30/2021 patient is comfortably sitting in a chair by the bedside. His family members were with him in the room. Patient states that his lower extremity edema has improved significantly. He denies having any chest pain or palpitations. No cough or difficulty breathing. No abdominal pain nausea vomiting or diarrhea. On reviewing the patient's vitals temperature of 98.2, heart rate 70, respiratory 18, blood pressure 146/80 saturating at 93% on 3 L of nasal cannula. Patient's labs have been reviewed sodium 136, potassium 3.3, chloride 98, bicarb 30, BUN 26, creatinine 1.1, white count 4.9, hemoglobin 13.7, platelets 142. Patient's medications have been reviewed.. Active Medications Albuterol Sulfate (Albuterol Nebulized 2.5 Mg/3 Ml) 2.5 mg INHALATION RT-Q6H PRN PRN Reason: Shortness Of Breath Last Admin: 01/25/21 20:34 Dose: 2.5 mg Documented by: Allopurinol (Allopurinol 300 Mg Tab) 300 mg PO HS [facility] Last Admin: 01/30/21 20:41 Dose: 300 mg Documented by: Amiodarone HCl (Amiodarone 200 Mg Tab) 400 mg PO BID [facility] Last Admin: 01/30/21 20:41 Dose: 400 mg Documented by: Amoxicillin/Clavulanate Potassium (Amoxic-Pot Clav 875-125mg 1 Each Tab) 1 each PO Q12HR [facility] Last Admin: 01/30/21 20:41 Dose: 1 each Documented by: Aspirin (Aspirin 81 Mg) 81 mg PO DAILY [facility] Last Admin: 01/30/21 09:57 Dose: 81 mg Documented by: Atorvastatin Calcium (Atorvastatin 40 Mg Tab) 40 mg PO HS [facility] Last Admin: 01/30/21 20:41 Dose: 40 mg Documented by: Budesonide/Formoterol Fumarate (Symbicort 160-4.5 Mcg Inhaler) 2 puff INHALATION RT-BID [facility] Last Admin: 01/30/21 20:05 Dose: 2 puff Documented by: Escitalopram Oxalate (Escitalopram 5 Mg Tab) 5 mg PO DAILY [facility] Last Admin: 01/30/21 09:59 Dose: 5 mg Documented by: Furosemide (Furosemide 10 Mg/Ml 4 Ml Vial) 40 mg IV Q12HR [facility] Last Admin: 01/30/21 20:44 Dose: 40 mg Documented by: Heparin Sodium (Porcine) (Heparin Sodium,Porcine/Pf 5,000 Unit/0.5 Ml Syringe) 5,000 unit SQ Q8HR [facility] Last Admin: 01/30/21 19:24 Dose: Not Given Documented by: Hydralazine HCl (Hydralazine Hcl 25 Mg Tab) 25 mg PO TID [facility] Last Admin: 01/30/21 20:44 Dose: 25 mg Documented by: Metoprolol Tartrate (Metoprolol Tartrate 25 Mg Tab) 25 mg PO BID [facility] Last Admin: 01/30/21 20:47 Dose: 25 mg Documented by: Naloxone HCl (Naloxone 0.4 Mg/Ml 1 Ml Vial) 0.2 mg IV Q2M PRN PRN Reason: Opioid Reversal Nitroglycerin (Nitroglycerin Oint 1 Inch/Gm Packet) 1 inch TOPICAL Q6HR [facility] Last Admin: 01/30/21 19:19 Dose: Not Given Documented by: Ondansetron HCl (Ondansetron 4 Mg/2 Ml Vial) 4 mg IVP Q8HR PRN PRN Reason: Nausea And Vomiting Last Admin: 01/25/21 18:46 Dose: 4 mg Documented by: Pantoprazole Sodium (Pantoprazole 40 Mg/10 Ml Vial) 40 mg IV DAILY [facility] Last Admin: 01/30/21 10:00 Dose: 40 mg Documented by: Tamsulosin HCl (Tamsulosin 0.4 Mg Cap.Er.24h) 0.4 mg PO BID [facility] Last Admin: 01/30/21 20:44 Dose: 0.4 mg Documented by: Objective - Vital Signs Vital signs: Vital Signs Temp 97.9 F 01/30/21 04:00 Pulse 79 01/30/21 04:00 Resp 20 01/30/21 04:00 BP 111/69 01/30/21 04:00 Pulse Ox 92 L 01/30/21 04:00 Intake & Output 01/29/21 01/30/21 01/30/21 19:59 06:59 18:59 Intake Total 360 Output Total Balance 360 Weight Intake: Oral 360 Output: Urine Other: Voiding Method # Bowel Movements - Exam PHYSICAL EXAMINATION: GENERAL: The patient is alert and oriented x3, not in any acute distress. Obese patient is on 4-5L oxygen via nasal cannula HEENT: Pupils are round and equally reacting to light. EOMI. No scleral icterus. No conjunctival pallor. CARDIOVASCULAR: S1 and S2 present. No murmurs, rubs, or gallops. PULMONARY: Chest is clear to auscultation, no wheezing or crackles. ABDOMEN: Soft, nontender, nondistended, normoactive bowel sounds. No palpable organomegaly. MUSCULOSKELETAL: No joint swelling or deformity. EXTREMITIES: No cyanosis, clubbing, bilateral pedal edema better NEUROLOGICAL: Gross neurological examination did not reveal any focal deficits. SKIN: No rashes. - Labs CBC & Chem 7: 01/30/21 10:45 01/30/21 10:45 Labs: Abnormal Lab Results - Last 24 Hours (Table) 01/30/21 01/30/21 Range/Units 10:45 10:45 RBC 3.85 L (4.30-5.90) m/uL MCV 106.4 H (80.0-100.0) fL MCH 35.4 H (25.0-35.0) pg Plt Count 142 L (150-450) k/uL Lymphocytes # 0.9 L (1.0-4.8) k/uL Sodium 136 L (137-145) mmol/L Potassium 3.3 L (3.5-5.1) mmol/L BUN 26 H (9-20) mg/dL Glucose 213 H (74-99) mg/dL Assessment and Plan Assessment: Assessment and plan -Acute respiratory failure: Secondary to pulmonary edema from congestive heart failure requiring 4 -5 L oxygen via nasal cannula -Chronic congestive heart failure, systolic dysfunction with acute exacerbation, EF 20-25% - IV lasix -Ischemic cardiomyopathy, EF 20-35%; previously 30-35% -Severe pulmonary hypertension, family is refusing a right heart cath at this time -Nausea/vomiting, presyncope believed to be secondary to ventricular tachycardia episode - cardiology recommending an AICD outpatient when stable -Ventricular tachycardia: Patient transitioned to oral amiodarone -UTI without sepsis, present on admission, culture positive for enterococcus faecalis and pseudomonas aeruginosa, transitioned to oral augmentin. -Acute renal failure secondary to hypotension hypoperfusion, JANA inhibitor discontinued patient was resumed on IV diuretic therapy -COPD with possible exacerbation patient will be started on inhaled steroids if patient heart rate control and patient was started on -Mild elevation of troponins: Cardiology evaluated the patient they do not believe patient has type I non-ST elevation NV -Benign prostatic hypertrophy -Hyperlipidemia -Coronary artery disease s/p CABG and cardiac catheterization with stents DVT prophylaxis: SQ heparin GI Prophylaxis: Protonix No CODE PLAN: Patient to be continued on the current medication regimen. Getting IV Lasix and showing significant improvement. Augmentin for his UTI. Continue with breathing treatments. Heparin for DVT prophylaxis. Patient's son actively involved in the care of the patient currently would not want any procedures done and would want to try conservative/medical treatment for now. Multiple consultants including pulmonary, cardiology, nephrology following the patient closely. dye house worker so possible CAROL placement. Further recommendations de pending on the progress of the patient
[2021-01-31] MEDS: NITROGLYCERIN OINT 1 INCH/GM PACKET TOPICAL SCH ×2 (06:00→11:00)
[2021-01-31 08:36] LABS: Basophils % (A) 0 %; Eosinophils # (A) 0.1 k/uL (0-0.7); Eosinophils % (A) 2 %; HGB 13.9 gm/dL (13.0-17.5); Lymphocytes # (A) 1.3 k/uL (1.0-4.8); Lymphocytes % (A) 23 %; MCH 34.9 pg (25.0-35.0); MCV 105.9 fL (80.0-100.0); Macrocytosis Moderate; Mean Platelet Volume 8.7; Monocytes # (A) 0.3 k/uL (0-1.0); Monocytes % (A) 5 %; Neutrophils # (A) 3.9 k/uL (1.3-7.7); Neutrophils % (A) 68 %; Platelet Count 156 k/uL (150-450); RBC 3.96 m/uL (4.30-5.90); RDW 13.9 % (11.5-15.5); WBC 5.7 k/uL (3.8-10.6)
[2021-01-31 08:43] LABS: Calcium 9.6 mg/dL (8.4-10.2); Potassium 3.6 mmol/L (3.5-5.1)
[2021-01-31] MEDS: SYMBICORT 160-4.5 MCG INHALER INHALATION SCH ×2 (09:14→20:44)
[2021-01-31] MEDS ORDERED: POTASSIUM CHLORIDE ER 20 MEQ TAB.ER PO STA (10:38)
--- NOTE | 2021-01-31 10:39 | P.PN ---
Subjective Patient is seen in follow-up for acute kidney injury. Renal function stable. Edema improved. On IV Lasix. No chest pain or shortness of breath. Vital signs are stable. General: The patient appeared well nourished and normally developed. HEENT: Head exam is unremarkable. LUNGS: Breath sounds decreased. HEART: Rate and Rhythm are regular. ABDOMEN: Soft, no distention. EXTREMITITES: Trace edema. Objective - Vital Signs Vital signs: Vital Signs Temp 98.0 F 01/31/21 04:00 Pulse 67 01/31/21 04:00 Resp 18 01/31/21 04:00 BP 130/66 01/31/21 04:00 Pulse Ox 93 L 01/31/21 04:00 Intake & Output 01/30/21 01/31/21 01/31/21 18:59 06:59 18:59 Intake Total 540 240 Output Total 175 625 Balance 365 -625 240 Weight 117.9 kg Intake: Oral 540 240 Output: Urine 175 625 Other: Voiding Method Incontinent Incontinent # Voids 1 1 # Bowel Movements 1 1 - Labs CBC & Chem 7: 01/31/21 07:32 01/31/21 07:32 Labs: Abnormal Lab Results - Last 24 Hours (Table) 01/30/21 01/30/21 01/31/21 Range/Units 10:45 10:45 07:32 RBC 3.85 L 3.96 L (4.30-5.90) m/uL MCV 106.4 H 105.9 H (80.0-100.0) fL MCH 35.4 H (25.0-35.0) pg Plt Count 142 L (150-450) k/uL Lymphocytes # 0.9 L (1.0-4.8) k/uL Sodium 136 L (137-145) mmol/L Potassium 3.3 L (3.5-5.1) mmol/L Carbon Dioxide (22-30) mmol/L BUN 26 H (9-20) mg/dL Glucose 213 H (74-99) mg/dL 01/31/21 Range/Units 07:32 RBC (4.30-5.90) m/uL MCV (80.0-100.0) fL MCH (25.0-35.0) pg Plt Count (150-450) k/uL Lymphocytes # (1.0-4.8) k/uL Sodium (137-145) mmol/L Potassium (3.5-5.1) mmol/L Carbon Dioxide 34 H (22-30) mmol/L BUN 27 H (9-20) mg/dL Glucose 128 H (74-99) mg/dL Assessment and Plan Plan: Assessment: 1. Acute kidney injury mostly prerenal secondary to cardiorenal syndrome. Renal function improved. Creatinine 1.12 today. 2. Acute on chronic systolic CHF with ejection fraction of 20-25%. 3. Volume overload. Improved with diuresis. 4. Enterococcus and Pseudomonas UTI maintained on antibiotics. 5. Hypokalemia from diuresis. Plan: Maintain IV Lasix. Transition to oral diuretics tomorrow. Low-salt diet. Replace potassium. Continue to monitor renal function and urine output
[2021-01-31] MEDS: METOPROLOL TARTRATE 25 MG TAB PO SCH ×2 (10:52→21:22)
[2021-01-31] MEDS: hydrALAZINE HCL 25 MG TAB PO SCH ×3 (10:52→20:24)
[2021-01-31] MEDS: AMOXIC-POT CLAV 875-125MG 1 EACH TAB PO SCH ×2 (10:52→20:24)
[2021-01-31] MEDS: ASPIRIN 81 MG PO SCH (10:53)
[2021-01-31] MEDS: HEPARIN SODIUM,PORCINE/PF 5,000 UNIT/0.5 ML SYRINGE SQ SCH ×3 (10:53→23:45)
[2021-01-31] MEDS: AMIODARONE 200 MG TAB PO SCH ×2 (10:53→20:24)
[2021-01-31] MEDS: FUROSEMIDE 10 MG/ML 4 ML VIAL IV SCH ×2 (10:54→20:24)
[2021-01-31] MEDS: PANTOPRAZOLE 40 MG/10 ML VIAL IV SCH (10:54)
[2021-01-31] MEDS: TAMSULOSIN 0.4 MG CAP.ER.24H PO SCH ×2 (10:54→20:24)
[2021-01-31] MEDS: ESCITALOPRAM 5 MG TAB PO SCH (11:00)
--- NOTE | 2021-01-31 14:29 | P.PN ---
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 Patient used to follow in the office with Dr. Wiley. He was last seen in 2019 and reports "I don't see him an yone. I fired him". We have been asked to see the patient in consultation for elevated troponins. Patient examined at the bedside. Patient reports he woke up around midnight and was dizzy. He reports having a few episodes of nausea and vomiting as well which prompted him to come to the hospital. Patient denied any chest pain or pressure. He reports chronic shortness of breath which is at his baseline. She did have an episode in the emergency room of ventricular tachycardia. He received amiodarone and procainamide and converted to sinus mechanism. EKG reveals sinus mechanism with right bundle branch block-similar to previous EKGs Chest xray cardiomegaly. Mild pulmonary fibrosis. No heart failure seen. Laboratory data: WBC 6.3. Hemoglobin 13.8. Platelet count 143. Sodium 137. Potassium 4.1. BUN 20. Creatinine 0.98. ProBNP 166. Troponin 0.037. 0.042. 0.088. Current home cardiac medications include hydrochlorothiazide 12.5 mg daily, metoprolol tartrate 12.5 mg at night, Aggrenox 23638 milligrams twice a day, Lipitor 40 mg daily Most recent echocardiogram obtained in 2018 revealed ejection fraction 30-35%, basal lateral, basal inferior, basal inferior septal, mid lateral, and mid inferior LV wall hypokinesis. Anterior septal hypokinesis. Her to severe mitral regurgitation. Mild tricuspid regurgitation. Borderline pulmonary hypertension. Addendum entered and electronically signed by Diego Dumas DO 01/25/21 17:53: Patient with a lightheaded, near syncopal episode yesterday which is new for patient. Seen with son at bedside who admits patient is somewhat stoic and does not complain much. Denied any preceding chest pain or pressure however did get nauseous with vomiting after near syncopal episode. Noted to have episode of VT captured on EKG which he was fairly asymptomatic for and has not reoccurred. Initial workup showing mildly elevated troponins which may have been from Type 2 mechanism from a possible VT episode. Apparently patient had never been considered for AICD however would be willing and may be indicated if EF remains <35%. Denies any angina type chest pain similar to his prior CABG. Unclear role of UTI. Patient reexamined later in the day secondary to increased respiratory rate however had stated was fairly asymptomatic. We will attempt nitro drip for acute on chronic heart failure as well as diuretics and optimize heart failure regimen, added lisinopril and increased metoprolol to 25mg bid. Continue amiodarone drip. Prognosis guarded. Check 2D echo. 01/26 Patient seen and examined. Patient transferred to ICU secondary to respiratory distress. Patient off and on BiPAP. Denies any chest pain or pressure. He has been diuresed. Echo pending. Creatinine increased to 1.34 today. Remains on amiodarone drip with no further ventricular tachycardia noted. 01/27 Patient seen and examined. Patient denies any chest pain or pressure. Still on the Heparin Drip and His Urine Is Somewhat Darker Today. No Hematuria noted. Blood work pending however yesterday increasing creatinine and was changed to oral Lasix. Pulmonology consult appreciated with possibility of some degree of pulmonary fibrosis however x-ray from September 2019 did not show that significant of only fibrosis. Spoke with son who admits that he has had a steady decline since his passed in May 2020. He is very short of breath with minimal activity such as walking to the bathroom at home. 01/28/2021 Patient examined this morning on the cardiac stepdown Unit. Patient Is Sitting up in the Chair. Patient Denies Chest Pain or Pressure. He denies shortness of breath. He remains on 5 L nasal cannula. No signs are stable. 01/29 Patient seen and examined. Patient denies any chest pain or pressure. He has been making good urine output with IV diuresis and creatinine remained stable. No significant episodes of DVT. On amiodarone loading dose 01/30 Patient seen and examined. Patient states he feels much better today. Creatinine continues improved to 1.1 today. States he has been up walking to the bathroom and feels much better. 01/31/2021 Patient examined at the bedside. Denies CP. Denies SOB. Vital signs are stable. Remains on IV lasix per nephrology. PHYSICAL EXAM: VITAL SIGNS: Reviewed. GENERAL: Well-developed in no acute distress. HEENT: Head is normocephalic. Pupils are equal, round. Sclerae anicteric. Mucous membranes of the mouth are moist. Neck supple. No JVD or thyromegaly LUNGS: Respirations even and unlabored. Lungs diminished to auscultation bilaterally. HEART: Regular rate and rhythm. S1 and S2 heard. ABDOMEN: Soft. Nondistended. Nontender. EXTREMITIES: Normal range of motion. No clubbing or cyanosis. Peripheral pulses intact. 2+ bilateral lower extremity edema NEUROLOGIC: Awake and alert. Oriented x 3. ASSESSMENT: Dizziness, presyncope possibly related to ventricular tachycardia episode Nausea and vomiting, resolved Possible urinary tract infection Ventricular tachycardia Abnormal troponins, possible NSTEMI however less likely type I mechanism Ischemic cardiomyopathy with mild decrease in ejection fraction 20-25%, previous 30-35% Coronary artery disease with previous CABG Acute on chronic systolic congestive heart failure History of AAA repair Hypertension Hyperlipidemia Diabetes Acute kidney injury Acute on chronic respiratory failure may be a component of heart failure versus pulmonary fibrosis. PLAN: Continue IV lasix per nephrology Further discussion regarding AICD will be had on an outpatient basis Discharge per medicine Nurse practitioner note has been reviewed by physician. Signing provider agrees with the documented findings, assessment, and plan of care. Objective - Vital Signs Vital signs: Vital Signs Temp 97.8 F 01/31/21 08:00 Pulse 67 01/31/21 12:00 Resp 18 01/31/21 12:00 BP 146/84 01/31/21 12:00 Pulse Ox 96 01/31/21 12:00 Intake & Output 01/30/21 01/31/21 01/31/21 18:59 06:59 18:59 Intake Total 540 360 Output Total 175 625 Balance 365 -625 360 Weight 117.9 kg Intake: Oral 540 360 Output: Urine 175 625 Other: Voiding Method Incontinent Incontinent # Voids 1 1 1 # Bowel Movements 1 1 1 - Labs CBC & Chem 7: 01/31/21 07:32 01/31/21 07:32 Labs: Abnormal Lab Results - Last 24 Hours (Table) 01/31/21 01/31/21 Range/Units 07:32 07:32 RBC 3.96 L (4.30-5.90) m/uL MCV 105.9 H (80.0-100.0) fL Carbon Dioxide 34 H (22-30) mmol/L BUN 27 H (9-20) mg/dL Glucose 128 H (74-99) mg/dL
[2021-01-31] MEDS: ATORVASTATIN 40 MG TAB PO SCH (20:24)
[2021-01-31] MEDS: allopurinoL 300 MG TAB PO SCH (20:24)
--- NOTE | 2021-02-01 02:17 | P.PN ---
Subjective Progress Note Date: 01/31/21 Principal diagnosis: CHF Exacerbation Mr. Martin is an 85-year-old male with a past medical history of congestive heart failure, hypertension, hyperlipidemia, coronary artery disease, prostate disorder, nephrolithiasis coming to the hospital with a chief complaint of b ilateral lower extremity swelling and difficulty in breathing. Patient had a chest x-ray showing pulmonary edema and labs showed elevated BNP. He is currently being treated for congestive heart failure exacerbation. On 01/29/2021-patient was seen and examined at the bedside. Patient son at the bedside mentioned that his lower extremities edema is getting better. Patient denied having any cough or difficulty in breathing. No chest pain or palpitations. No abdominal pain nausea vomiting or diarrhea. On reviewing the vitals temperature 97.8, heart rate 80, respiratory 20, blood pressure 152/68 saturating at 97% on 3 L of oxygen. Patient's labs are reviewed showing sodium of 136 potassium of 3.9, chloride 101, bicarb 29, BUN 29, creatinine 1.36. On 01/30/2021 patient is comfortably sitting in a chair by the bedside. His family members were with him in the room. Patient states that his lower extremity edema has improved significantly. He denies having any chest pain or palpitations. No cough or difficulty breathing. No abdominal pain nausea vomiting or diarrhea. On reviewing the patient's vitals temperature of 98.2, heart rate 70, respiratory 18, blood pressure 146/80 saturating at 93% on 3 L of nasal cannula. Patient's labs have been reviewed sodium 136, potassium 3.3, chloride 98, bicarb 30, BUN 26, creatinine 1.1, white count 4.9, hemoglobin 13.7, platelets 142. On 01/31/2021 patient is seen and examined at the bedside. He denies having any active complaints. No acute issues reported by nursing staff overnight. Patient continues to be on IV Lasix. On reviewing the vitals temperature of 97.8, heart rate 70, respiratory rate 18, blood pressure 134 x 70 saturating at 94% on 3 L of nasal cannula. On reviewing the labs white count of 5.7, hemoglobin 13.9, platelets 156. Sodium 137, potassium 3.6, chloride 98, bicarb 34, BUN 27, creatinine 1.1 Patient medications have been reviewed Objective - Vital Signs Vital signs: Vital Signs Temp 97.8 F 01/31/21 08:00 Pulse 70 01/31/21 08:00 Resp 18 01/31/21 08:00 BP 134/70 01/31/21 08:00 Pulse Ox 94 L 01/31/21 08:00 Intake & Output 01/30/21 01/31/21 01/31/21 18:59 06:59 18:59 Intake Total 540 240 Output Total 175 625 Balance 365 -625 240 Weight 117.9 kg Intake: Oral 540 240 Output: Urine 175 625 Other: Voiding Method Incontinent Incontinent # Voids 1 1 1 # Bowel Movements 1 1 1 - Exam PHYSICAL EXAMINATION: GENERAL: The patient is alert and oriented x3, not in any acute distress. Obese patient is on 4-5L oxygen via nasal cannula HEENT: Pupils are round and equally reacting to light. EOMI. No scleral icterus. No conjunctival pallor. CARDIOVASCULAR: S1 and S2 present. No murmurs, rubs, or gallops. PULMONARY: Chest is clear to auscultation, no wheezing or crackles. ABDOMEN: Soft, nontender, nondistended, normoactive bowel sounds. MUSCULOSKELETAL: No joint swelling or deformity. EXTREMITIES: No cyanosis, clubbing, bilateral pedal edema better NEUROLOGICAL: Gross neurological examination did not reveal any focal deficits. SKIN: No rashes. - Labs CBC & Chem 7: 01/31/21 07:32 01/31/21 07:32 Labs: Abnormal Lab Results - Last 24 Hours (Table) 01/31/21 01/31/21 Range/Units 07:32 07:32 RBC 3.96 L (4.30-5.90) m/uL MCV 105.9 H (80.0-100.0) fL Carbon Dioxide 34 H (22-30) mmol/L BUN 27 H (9-20) mg/dL Glucose 128 H (74-99) mg/dL Assessment and Plan Assessment: Assessment and plan -Acute respiratory failure: Secondary to pulmonary edema from congestive heart failure requiring 4 -5 L oxygen via nasal cannula -Chronic congestive heart failure, systolic dysfunction with acute exacerbation, EF 20-25% - IV lasix -Ischemic cardiomyopathy, EF 20-35%; previously 30-35% -Severe pulmonary hypertension, family is refusing a right heart cath at this time -Nausea/vomiting, presyncope believed to be secondary to ventricular tachycardia episode - cardiology recommending an AICD outpatient when stable -Ventricular tachycardia: Patient transitioned to oral amiodarone -UTI without sepsis, present on admission, culture positive for enterococcus faecalis and pseudomonas aeruginosa, transitioned to oral augmentin. -Acute renal failure secondary to hypotension hypoperfusion, JANA inhibitor discontinued patient was resumed on IV diuretic therapy -COPD with possible exacerbation patient will be started on inhaled steroids if patient heart rate control and patient was started on -Mild elevation of troponins: Cardiology evaluated the patient they do not believe patient has type I non-ST elevation IN -Benign prostatic hypertrophy -Hyperlipidemia -Coronary artery disease s/p CABG and cardiac catheterization with stents DVT prophylaxis: SQ heparin GI Prophylaxis: Protonix No CODE PLAN: Getting IV Lasix and showing significant improvement in LE prabhu and SOB Augmentin for his UTI. Continue with breathing treatments. Heparin for DVT prophylaxis. Patient's son actively involved in the care of the patient currently would not want any procedures done and would want to try conservative/medical treatment for now. Multiple consultants including pulmonary, cardiology, nephrology following the patient closely. AICD as OP per Cardiology [employer] workers so possible CAROL placement. Further recommendations depending on the progress of the patient
[2021-02-01] MEDS: SYMBICORT 160-4.5 MCG INHALER INHALATION SCH (08:45)
[2021-02-01] MEDS: AMIODARONE 200 MG TAB PO SCH (09:01)
[2021-02-01] MEDS: PANTOPRAZOLE 40 MG/10 ML VIAL IV SCH (09:01)
[2021-02-01] MEDS: FUROSEMIDE 10 MG/ML 4 ML VIAL IV SCH (09:01)
[2021-02-01] MEDS: METOPROLOL TARTRATE 25 MG TAB PO SCH (09:02)
[2021-02-01] MEDS: HEPARIN SODIUM,PORCINE/PF 5,000 UNIT/0.5 ML SYRINGE SQ SCH ×2 (09:02→14:55)
[2021-02-01] MEDS: ASPIRIN 81 MG PO SCH (09:02)
[2021-02-01] MEDS: ESCITALOPRAM 5 MG TAB PO SCH (09:02)
[2021-02-01] MEDS: hydrALAZINE HCL 25 MG TAB PO SCH ×2 (09:02→14:55)
[2021-02-01] MEDS: TAMSULOSIN 0.4 MG CAP.ER.24H PO SCH (09:02)
[2021-02-01] MEDS: AMOXIC-POT CLAV 875-125MG 1 EACH TAB PO SCH (09:02)
--- NOTE | 2021-02-01 09:26 | P.PN ---
Subjective Patient is seen in follow-up for acute kidney injury. Renal function stable. Edema improved. On IV Lasix. No chest pain or shortness of breath. Blood pressure stable. No active complaints. Vital signs are stable. General: The patient appeared well nourished and normally developed. HEENT: Head exam is unremarkable. LUNGS: Breath sounds decreased. HEART: Rate and Rhythm are regular. ABDOMEN: Soft, no distention. EXTREMITITES: No edema. Objective - Vital Signs Vital signs: Vital Signs Temp 97.3 F L 02/01/21 07:35 Pulse 76 02/01/21 07:35 Resp 16 02/01/21 07:35 BP 137/62 02/01/21 07:35 Pulse Ox 93 L 02/01/21 09:04 Intake & Output 01/31/21 02/01/21 02/01/21 18:59 06:59 18:59 Intake Total 478 120 120 Output Total 450 200 Balance 478 -330 -80 Weight 116.4 kg Intake: Oral 478 120 120 Output: Urine 450 200 Other: # Voids 1 # Bowel Movements 1 1 - Labs CBC & Chem 7: 01/31/21 07:32 01/31/21 07:32 Assessment and Plan Plan: Assessment: 1. Acute kidney injury mostly prerenal secondary to cardiorenal syndrome. Renal function improved. Creatinine 1.12 yesterday. 2. Acute on chronic systolic CHF with ejection fraction of 20-25%. 3. Volume overload. Improved with diuresis. 4. Enterococcus and Pseudomonas UTI maintained on antibiotics. 5. Hypokalemia from diuresis. Replaced. Plan: Change Lasix to 40 mg orally twice daily. Low-salt diet. Continue to monitor renal function and urine output. Follow-up outpatient in 1 week.
--- NOTE | 2021-02-01 09:50 | P.PN ---
Subjective Progress Note Date: 01/31/21 Principal diagnosis: Acute hypoxic history failure Ischemic cardiomyopathy Acute exacerbation of heart failure with reduced ejection fraction Cellulitis of the lower extremity Urinary tract infection A. fib/flutter with controlled response now Minimal bilateral pulmonary fibrosis atypical at the bases baseline 01/31/2021, patient seen eval examined during the rounds labs reviewed medications reviewed care plan discussed, respiratory status remains stable denies any chest pain, respiratory status still requiring oxygen 3 L, swelling in the lower extremity has improved patient appetite is improved, chest x-ray performed yesterday shows a improvement in pleural effusion and infiltrate, discussed with the RN and respiratory about increasing activity and checking pulse ox on room air 01/30/2021, patient seen eval examined during the rounds labs reviewed medications reviewed care plan discussed, respiratory status remains stable denies any chest pain, patient resting on 3 L, swelling in the lower extremity continued to improve, chest x-ray from today reviewed interval improvement of the left lower lobe infiltrate and effusion is seen 01/28/2021, patient sitting upright in chair breathing comfortably has been diarrheas labs reviewed medications reviewed, family present at bedside care plan discussed with family at length, appetite continued to improve prog ressively the severity or shortness of breath and third spacing significantly improved Patient is a 85-year-old male who came into the hospital with retrosternal chest pain along with shortness of breath also having problems associated nausea vomiting patient has extensive third spacing with lower extremity edema, his history significant for cardiomyopathy likely ischemic with ejection fraction 3 0-35%, patient has a pulmonary fibrosis BNP was 866, patient denies any cough or sputum production denies any fever or chills, patient also has some ST segment changes, patient is well-known to cardiovascular services, due to shortness of breath has been placed on BiPAP currently patient is on 12/60-60% oxygen repeat echocardiogram revealed ejection fraction 20%, patient is no code DO NOT RESUSCITATE and DO NOT INTUBATE, patient has some runs of wide complex tachycardia as well as supraventricular tachycardia has been placed on IV amiodarone which will be discontinued later on tonight and patient was started on by mouth amiodarone, his labs are significant for white cell count of 8000, hemoglobin and hematocrit 14 and 44, platelet count 1 45,000, patient is on heparin drip PTT is 53, arterial blood gas revealed pH of 7.22 pCO2 63 pO2 of 100, patient has been IV Lasix changed to by mouth as BUN/creatinine from 20/0.9 10/25/2025/1.34, drops are 0.088 and 0.192, urinalysis positive for leukocyte esterase, few RBCs and WBCs, PCR is negative chest x-ray shows the bilateral mild pulmonary fibrosis along with cardiomegaly compared to prior exam no significant change which was performed on 09/25/2019 1 repeat chest x-ray shows worsening of CHF changes along with air space disease, small pleural effusion seen, monitor strip continue show A. fib/atrial flutter with controlled ventricular response, patient is not on pressors, noted that patient has been on IV Unasyn for cellulitis of the lower extremity and possible pneumonia would recommend to DC it due to sodium load and replace it with IV Rocephin once daily Objective - Vital Signs Vital signs: Vital Signs Temp 97.8 F 01/31/21 08:00 Pulse 67 01/31/21 12:00 Resp 18 01/31/21 12:00 BP 146/84 01/31/21 12:00 Pulse Ox 96 01/31/21 12:00 Intake & Output 01/30/21 01/31/21 01/31/21 18:59 06:59 18:59 Intake Total 540 360 Output Total 175 625 Balance 365 -625 360 Weight 117.9 kg Intake: Oral 540 360 Output: Urine 175 625 Other: Voiding Method Incontinent Incontinent # Voids 1 1 1 # Bowel Movements 1 1 1 - Exam - Constitutional General appearance: cooperative, disheveled, mild distress - EENT Eyes: EOMI, PERRLA Ears: bilateral: normal - Neck Neck: normal ROM Carotids: bilateral: upstroke normal - Respiratory Respiratory: bilateral: diminished - Cardiovascular Rhythm: irregularly irregular Heart sounds: normal: S1, S2 - Gastrointestinal General gastrointestinal: decreased bowel sounds - Integumentary +3 edema in lower extremity up to the level of knees - Neurologic Neurologic: CNII-XII intact - Musculoskeletal Musculoskeletal: gait normal, generalized weakness, strength equal bilaterally - Labs CBC & Chem 7: 01/31/21 07:32 01/31/21 07:32 Labs: Abnormal Lab Results - Last 24 Hours (Table) 01/31/21 01/31/21 Range/Units 07:32 07:32 RBC 3.96 L (4.30-5.90) m/uL MCV 105.9 H (80.0-100.0) fL Carbon Dioxide 34 H (22-30) mmol/L BUN 27 H (9-20) mg/dL Glucose 128 H (74-99) mg/dL Assessment and Plan Assessment: Acute hypoxic history failure Ischemic cardiomyopathy Acute exacerbation of heart failure with reduced ejection fraction Cellulitis of the lower extremity Urinary tract infection A. fib/flutter with controlled response now Minimal bilateral pulmonary fibrosis atypical at the bases baseline Plan: Continue gentle diuresis Continue BiPAP alternating with the oxygen, would recommend to increase duration of high flow oxygen oxygen with the use of BiPAP each night and when necessary during the day Noted patient is on oral Augmentin to finish 5-7 day therapy Heparin subcu as per cardiology service Diuretics as per cardiology recommendation Patient is DO NOT RESUSCITATE/DO NOT INTUBATE We'll follow clinical course closely further recommendations pending plan of care as per clinical response of patient Patient can be moved out of the ICU to the stepdown selective care Time with Patient: Greater than 30
--- NOTE | 2021-02-01 09:53 | P.PN ---
Subjective Progress Note Date: 02/01/21 Principal diagnosis: Acute hypoxic history failure Ischemic cardiomyopathy Acute exacerbation of heart failure with reduced ejection fraction Cellulitis of the lower extremity Urinary tract infection A. fib/flutter with controlled response now Minimal bilateral pulmonary fibrosis atypical at the bases baseline February 01 2021, patient seen and evaluated examined also discussed respiratory therapy plan is to check pulse ox at room air post activity for home O2 assessment, respiratory status continued to improve patient is awake and alert, significant upright on the chair denies any cough or sputum production 01/31/2021, patient seen eval examined during the rounds labs reviewed medications reviewed care plan discussed, respiratory status remains stable denies any chest pain, respiratory status still requiring oxygen 3 L, swelling in the lower extremity has improved patient appetite is improved, chest x-ray performed yesterday shows a improvement in pleural effusion and infiltrate, discussed with the RN and respiratory about increasing activity and checking pulse ox on room air 01/30/2021, patient seen eval examined during the rounds labs reviewed medicat ions reviewed care plan discussed, respiratory status remains stable denies any chest pain, patient resting on 3 L, swelling in the lower extremity continued to improve, chest x-ray from today reviewed interval improvement of the left lower lobe infiltrate and effusion is seen 01/28/2021, patient sitting upright in chair breathing comfortably has been diarrheas labs reviewed medications reviewed, family present at bedside care plan discussed with family at length, appetite continued to improve progressively the severity or shortness of breath and third spacing significantly improved Patient is a 85-year-old male who came into the hospital with retrosternal chest pain along with shortness of breath also having problems associated nausea vomiting patient has extensive third spacing with lower extremity edema, his history significant for cardiomyopathy likely ischemic with ejection fraction 30-35%, patient has a pulmonary fibrosis BNP was 866, patient denies any cough or sputum production denies any fever or chills, patient also has some ST segment changes, patient is well-known to cardiovascular services, due to shortness of breath has been placed on BiPAP currently patient is on 12/60-60% oxygen repeat echocardiogram revealed ejection fraction 20%, patient is no code DO NOT RESUSCITATE and DO NOT INTUBATE, patient has some runs of wide complex tachycardia as well as supraventricular tachycardia has been placed on IV amiodarone which will be discontinued later on tonight and patient was started on by mouth amiodarone, his labs are significant for white cell count of 8000, h emoglobin and hematocrit 14 and 44, platelet count 1 45,000, patient is on heparin drip PTT is 53, arterial blood gas revealed pH of 7.22 pCO2 63 pO2 of 100, patient has been IV Lasix changed to by mouth as BUN/creatinine from 20/0.9 10/25/2025/1.34, drops are 0.088 and 0.192, urinalysis positive for leukocyte esterase, few RBCs and WBCs, PCR is negative chest x-ray shows the bilateral mild pulmonary fibrosis along with cardiomegaly compared to prior exam no significant change which was performed on 09/25/2019 1 repeat chest x-ray shows worsening of CHF changes along with air space disease, small pleural effusion seen, monitor strip continue show A. fib/atrial flutter with controlled ventric ular response, patient is not on pressors, noted that patient has been on IV Unasyn for cellulitis of the lower extremity and possible pneumonia would recommend to DC it due to sodium load and replace it with IV Rocephin once daily Objective - Vital Signs Vital signs: Vital Signs Temp 97.3 F L 02/01/21 07:35 Pulse 76 02/01/21 07:35 Resp 16 02/01/21 07:35 BP 137/62 02/01/21 07:35 Pulse Ox 93 L 02/01/21 09:04 Intake & Output 01/31/21 02/01/21 02/01/21 18:59 06:59 18:59 Intake Total 478 120 120 Output Total 450 200 Balance 478 -330 -80 Weight 116.4 kg Intake: Oral 478 120 120 Output: Urine 450 200 Other: # Voids 1 # Bowel Movements 1 1 - Exam - Constitutional General appearance: cooperative, disheveled, mild distress - EENT Eyes: EOMI, PERRLA Ears: bilateral: normal - Neck Neck: normal ROM Carotids: bilateral: upstroke normal - Respiratory Respiratory: bilateral: diminished - Cardiovascular Rhythm: irregularly irregular Heart sounds: normal: S1, S2 - Gastrointestinal General gastrointestinal: decreased bowel sounds - Integumentary +3 edema in lower extremity up to the level of knees - Neurologic Neurologic: CNII-XII intact - Musculoskeletal Musculoskeletal: gait normal, generalized weakness, strength equal bilaterally - Labs CBC & Chem 7: 01/31/21 07:32 01/31/21 07:32 Assessment and Plan Assessment: Acute hypoxic history failure Ischemic cardiomyopathy Acute exacerbation of heart failure with reduced ejection fraction Cellulitis of the lower extremity Urinary tract infection A. fib/flutter with controlled response now Minimal bilateral pulmonary fibrosis atypical at the bases baseline Plan: Evaluate for home oxygen assessment Continue gentle diuresis Continue BiPAP each night and when necessary during the day patient will likely need a sleep study on outpatient Noted patient is on oral Augmentin to finish 5-7 day therapy Heparin subcu as per cardiology service Diuretics as per cardiology recommendation Patient is DO NOT RESUSCITATE/DO NOT INTUBATE We'll follow clinical course closely further recommendations pending plan of care as per clinical response of patient Patient can be moved out of the ICU to the stepdown selective care Time with Patient: Greater than 30
[2021-02-01 10:40] LABS: Calcium 9.5 mg/dL (8.4-10.2); Magnesium 1.9 mg/dL (1.6-2.3); Potassium 3.5 mmol/L (3.5-5.1)
[2021-02-01 11:45] VITALS: BMI 30.4
--- NOTE | 2021-02-01 12:37 | P.PN ---
Subjective Progress Note Date: 02/01/21 HISTORY OF PRESENT ILLNESS: This is a 85 year old male with a past medical history significant for coronary artery disease with previous CABG in 1995, AAA repair in 2000, hypertension, hyperlipidemia, diabetes, ischemic heart myopathy with a known ejection fraction of 30-35%, and congestive heart failure not taking diuretics on a regular basis as he does not like urinating frequently. Patient used to follow in the office with Dr. Wiley. He was last seen in 2019 and reports "I don't see him an yone. I fired him". We have been asked to see the patient in consultation for elevated troponins. Patient examined at the bedside. Patient reports he woke up around midnight and was dizzy. He reports having a few episodes of nausea and vomiting as well which prompted him to come to the hospital. Patient denied any chest pain or pressure. He reports chronic shortness of breath which is at his baseline. She did have an episode in the emergency room of ventricular tachycardia. He received amiodarone and procainamide and converted to sinus mechanism. EKG reveals sinus mechanism with right bundle branch block-similar to previous EKGs Chest xray cardiomegaly. Mild pulmonary fibrosis. No heart failure seen. Laboratory data: WBC 6.3. Hemoglobin 13.8. Platelet count 143. Sodium 137. Potassium 4.1. BUN 20. Creatinine 0.98. ProBNP 166. Troponin 0.037. 0.042. 0.088. Current home cardiac medications include hydrochlorothiazide 12.5 mg daily, metoprolol tartrate 12.5 mg at night, Aggrenox 17094 milligrams twice a day, Lipitor 40 mg daily Most recent echocardiogram obtained in 2018 revealed ejection fraction 30-35%, basal lateral, basal inferior, basal inferior septal, mid lateral, and mid inferior LV wall hypokinesis. Anterior septal hypokinesis. Her to severe mitral regurgitation. Mild tricuspid regurgitation. Borderline pulmonary hypertension. Addendum entered and electronically signed by Diego Dumas DO 01/25/21 17:53: Patient with a lightheaded, near syncopal episode yesterday which is new for patient. Seen with son at bedside who admits patient is somewhat stoic and does not complain much. Denied any preceding chest pain or pressure however did get nauseous with vomiting after near syncopal episode. Noted to have episode of VT captured on EKG which he was fairly asymptomatic for and has not reoccurred. Initial workup showing mildly elevated troponins which may have been from Type 2 mechanism from a possible VT episode. Apparently patient had never been considered for AICD however would be willing and may be indicated if EF remains <35%. Denies any angina type chest pain similar to his prior CABG. Unclear role of UTI. Patient reexamined later in the day secondary to increased respiratory rate however had stated was fairly asymptomatic. We will attempt nitro drip for acute on chronic heart failure as well as diuretics and optimize heart failure regimen, added lisinopril and increased metoprolol to 25mg bid. Continue amiodarone drip. Prognosis guarded. Check 2D echo. 01/26 Patient seen and examined. Patient transferred to ICU secondary to respiratory distress. Patient off and on BiPAP. Denies any chest pain or pressure. He has been diuresed. Echo pending. Creatinine increased to 1.34 today. Remains on amiodarone drip with no further ventricular tachycardia noted. 01/27 Patient seen and examined. Patient denies any chest pain or pressure. Still on the Heparin Drip and His Urine Is Somewhat Darker Today. No Hematuria noted. Blood work pending however yesterday increasing creatinine and was changed to oral Lasix. Pulmonology consult appreciated with possibility of some degree of pulmonary fibrosis however x-ray from September 2019 did not show that significant of only fibrosis. Spoke with son who admits that he has had a steady decline since his passed in May 2020. He is very short of breath with minimal activity such as walking to the bathroom at home. 01/28/2021 Patient examined this morning on the cardiac stepdown Unit. Patient Is Sitting up in the Chair. Patient Denies Chest Pain or Pressure. He denies shortness of breath. He remains on 5 L nasal cannula. No signs are stable. 01/29 Patient seen and examined. Patient denies any chest pain or pressure. He has been making good urine output with IV diuresis and creatinine remained stable. No significant episodes of DVT. On amiodarone loading dose 01/30 Patient seen and examined. Patient states he feels much better today. Creatinine continues improved to 1.1 today. States he has been up walking to the bathroom and feels much better. 01/31/2021 Patient examined at the bedside. Denies CP. Denies SOB. Vital signs are stable. Remains on IV lasix per nephrology. 02/01/2021 Patient examined this morning sitting in the chair. Denies chest pain or pressure. Denies SOB. He has been transitioned to oral Lasix per nephrology. He is on room air with oxygen saturations greater then 92%. PHYSICAL EXAM: VITAL SIGNS: Reviewed. GENERAL: Well-developed in no acute distress. HEENT: Head is normocephalic. Pupils are equal, round. Sclerae anicteric. Mucous membranes of the mouth are moist. Neck supple. No JVD or thyromegaly LUNGS: Respirations even and unlabored. Lungs diminished to auscultation bilaterally. HEART: Regular rate and rhythm. S1 and S2 heard. ABDOMEN: Soft. Nondistended. Nontender. EXTREMITIES: Normal range of motion. No clubbing or cyanosis. Peripheral pulses intact. 2+ bilateral lower extremity edema NEUROLOGIC: Awake and alert. Oriented x 3. ASSESSMENT: Dizziness, presyncope possibly related to ventricular tachycardia episode Nausea and vomiting, resolved Possible urinary tract infection Ventricular tachycardia Abnormal troponins, possible NSTEMI however less likely type I mechanism Ischemic cardiomyopathy with mild decrease in ejection fraction 20-25%, previous 30-35% Coronary artery disease with previous CABG Acute on chronic systolic congestive heart failure History of AAA repair Hypertension Hyperlipidemia Diabetes Acute kidney injury Acute on chronic respiratory failure may be a component of heart failure versus pulmonary fibrosis. PLAN: Continue current cardiac medications Further discussion regarding AICD will be had on an outpatient basis Patient is currently stable from a cardiac perspective. We will follow on an as-needed basis. Please call with questions or concerns. Nurse practitioner note has been reviewed by physician. Signing provider agrees with the documented findings, assessment, and plan of care. Objective - Vital Signs Vital signs: Vital Signs Temp 97.3 F L 02/01/21 07:35 Pulse 76 02/01/21 07:35 Resp 16 02/01/21 07:35 BP 137/62 02/01/21 07:35 Pulse Ox 93 L 02/01/21 09:04 Intake & Output 01/31/21 02/01/21 02/01/21 18:59 06:59 18:59 Intake Total 478 120 120 Output Total 450 200 Balance 478 -330 -80 Weight 116.4 kg 116.4 kg Intake: Oral 478 120 120 Output: Urine 450 200 Other: # Voids 1 # Bowel Movements 1 1 - Labs CBC & Chem 7: 01/31/21 07:32 02/01/21 09:42 Labs: Abnormal Lab Results - Last 24 Hours (Table) 02/01/21 Range/Units 09:42 Chloride 97 L (98-107) mmol/L Carbon Dioxide 34 H (22-30) mmol/L BUN 33 H (9-20) mg/dL Creatinine 1.35 H (0.66-1.25) mg/dL Glucose 134 H (74-99) mg/dL
[2021-02-01 13:11] VITALS: BP 111/65
[2021-02-01 15:01] VITALS: PULSE 65; RESP 17; TEMP 97.6
[2021-02-01] MEDS ORDERED: FUROSEMIDE 40 MG TAB PO SCH (16:00)
--- NOTE | 2021-02-02 08:58 | P.DS ---
Providers Date of admission: 01/25/21 03:56 Expected date of discharge: 02/01/21 Attending physician: Kris Briseno Consults: 01/25/21 03:56 Consult Physician Routine Consulting Provider: Theodora Marshall Consult Reason/Comments: elevTrop Do you want consulting provider notified?: Yes 01/26/21 02:21 Consult Physician Stat Consulting Provider: Grzegorz Wright Consult Reason/Comments: ICU management Do you want consulting provider notified?: Already Contacted 01/26/21 16:54 Consult Physician Routine Consulting Provider: Bita Moreira Consult Reason/Comments: ALEC Do you want consulting provider notified?: Yes Primary care physician: Alyse Foreman Hospital Course: Final diagnosis -Acute respiratory failure: Secondary to pulmonary edema from congestive heart failure -Chronic congestive heart failure, systolic dysfunction with acute exacerbation, EF 20-25% -Ischemic cardiomyopathy, EF 20-35%; previously 30-35% -Severe pulmonary hypertension, family is refusing a right heart cath at this time -Nausea/vomiting, presyncope believed to be secondary to ventricular tachycardia episode - cardiology recommending an AICD outpatient when stable -Ventricular tachycardia -UTI without sepsis, present on admission, culture positive for enterococcus faecalis and pseudomonas aeruginosa, transitioned to oral augmentin. -Acute renal failure secondary to hypotension hypoperfusion -COPD with possible exacerbation -Mild elevation of troponins: Cardiology evaluated the patient they do not believe patient has type I non-ST elevation SC -Benign prostatic hypertrophy -Hyperlipidemia -Coronary artery disease s/p CABG and cardiac catheterization with stents -DVT prophylaxis -GI Prophylaxis: Protonix -No CODE Discharge disposition Patient is being discharged in a stable condition with guarded prognosis to [facility] where he is a resident. Patient will have continued home care in the outpatient setting. Patient will follow-up with Dr. Foreman in the outpatient setting upon discharge. Patient is to also follow-up with pulmonary Dr. Wright along with nephrology Dr. sotomayor and cardiology outpatient. Total time taken is greater than 35 minutes. Hospital course This is an 85-year-old male who was recently brought to the hospital with bilateral lower extremity swelling and difficulty in breathing and was found to be in CHF acute exacerbation. Patient's chest x-ray showed pulmonary edema and elevated BNP and was evaluated by cardiology recommending cardiac cath with possible AICD placement although patient and family refused. Patient to follow- up in the outpatient setting on discharge with cardiology along with pulmonary and his primary care provider Dr. Foreman. Patient's lower extremity swelling improved and denies any further difficulty in breathing and is requesting to go home. Patient denies any nausea or vomiting and is tolerating diet. Family at the bedside and treatment plan was discussed. Currently no reports of chest pain, shortness of breath, or palpitations. Patient is afebrile. No reports of nausea or vomiting and patient is tolerating diet. Patient will be going to [facility] today. Guarded prognosis. PHYSICAL EXAMINATION: GENERAL: The patient is alert and oriented x3, Obese patient is on room air HEENT: Pupils are round and equally reacting to light. EOMI. No scleral icterus. No conjunctival pallor. CARDIOVASCULAR: S1 and S2 present. No murmurs, rubs, or gallops. PULMONARY: Chest is clear to auscultation, no wheezing or crackles. ABDOMEN: Soft, nontender, nondistended, normoactive bowel sounds. MUSCULOSKELETAL: No joint swelling or deformity. EXTREMITIES: No cyanosis, clubbing, bilateral pedal edema better NEUROLOGICAL: Gross neurological examination did not reveal any focal deficits. SKIN: No rashes. Please refer to medication reconciliation sheet for a list of medications. Patient Condition at Discharge: Stable Plan - Discharge Summary Discharge Rx Participant: Yes New Discharge Prescriptions: New Aspirin 81 mg PO DAILY 30 Days #30 tab Amoxic-Pot Clav 875-125Mg [Augmentin 875-125] 1 each PO Q12HR 3 Days #6 tab hydrALAZINE HCL [Apresoline] 25 mg PO TID 30 Days #90 tab Amiodarone [Cordarone] 400 mg PO BID 30 Days #60 tab Furosemide [Lasix] 40 mg PO BID@0900,1600 30 Days #60 tab Metoprolol Tartrate [Lopressor] 25 mg PO BID 30 Days #60 tab Continue Tamsulosin HCl [Flomax] 0.4 mg PO BID Budesonide/Formoterol Fumarate [Symbicort 160-4.5 Mcg Inhaler] 2 puff INHALATION RT-BID allopurinoL [Zyloprim] 300 mg PO HS Atorvastatin [Lipitor] 40 mg PO HS #30 tablet Escitalopram [Lexapro] 5 mg PO DAILY Albuterol Sulfate [Ventolin HFA] 2 puff INHALATION RT-Q6H PRN PRN Reason: Shortness Of Breath Discontinued Dipyridamole-Aspirin 200-25 mg [Aggrenox 25MG -200MG] 1 tab PO BID Metoprolol Tartrate 12.5 mg PO HS Hydrochlorothiazide [hydroCHLOROthiazide] 12.5 mg PO DAILY Discharge Medication List Budesonide/Formoterol Fumarate [Symbicort 160-4.5 Mcg Inhaler] 2 puff INHALATION RT-BID 08/30/16 [History] Tamsulosin HCl [Flomax] 0.4 mg PO BID 08/30/16 [History] allopurinoL [Zyloprim] 300 mg PO HS 08/30/16 [History] Atorvastatin [Lipitor] 40 mg PO HS #30 tablet 08/14/17 [Rx] Albuterol Sulfate [Ventolin HFA] 2 puff INHALATION RT-Q6H PRN 01/25/21 [History] Escitalopram [Lexapro] 5 mg PO DAILY 01/25/21 [History] Amiodarone [Cordarone] 400 mg PO BID 30 Days #60 tab 02/01/21 [Rx] Amoxic-Pot Clav 875-125Mg [Augmentin 875-125] 1 each PO Q12HR 3 Days #6 tab 02/01/21 [Rx] Aspirin 81 mg PO DAILY 30 Days #30 tab 02/01/21 [Rx] Furosemide [Lasix] 40 mg PO BID@0900,1600 30 Days #60 tab 02/01/21 [Rx] Metoprolol Tartrate [Lopressor] 25 mg PO BID 30 Days #60 tab 02/01/21 [Rx] hydrALAZINE HCL [Apresoline] 25 mg PO TID 30 Days #90 tab 02/01/21 [Rx] Follow up Appointment(s)/Referral(s): [facility], [NON-STAFF] - Grzegorz Wright MD [STAFF PHYSICIAN] - 02/15/21 1:00 pm Alyse Foreman MD [Primary Care Provider] - 02/07/21 11:40 am Awais Lundberg DO [STAFF PHYSICIAN] - 1 Week (called office they stated they will get records and reach out to patient. ) Ambulatory/Diagnostic Orders: Complete Blood Count w/diff [LAB.AMB] Time Frame: 3 Days, Location: None Selected Patient Instructions/Handouts: Heart Attack (DC), Dehydration (DC), Urinary Tract Infection in Men (DC), Acute Nausea and Vomiting (DC) Activity/Diet/Wound Care/Special Instructions: Prescription for repeat labs at the desk 3 S. Patient is returning to [facility] Continue with home care services Follow-up primary care provider on discharge Follow-up cardiology outpatient as discussed Follow-up nephrology outpatient Follow-up pulmonary outpatient Dr. Wright in 1-2 weeks Continue with medications as prescribed Continue heart healthy diet Repeat labs in 2-3 days for CBC, BMP, magnesium Discharge Disposition: HOME WITH HOME HEALTH SERVICES
== END 2021-02-01 15:10 | disposition home health service (06) | DRG 280 ==
LOC: EC 01:40 → 3SCARD 03:56 → 2SICU 21:11 → 3SCARD 01-27 12:06
PROVIDERS: ADMIT Hospitalist; ATTEND Hospitalist
PROC: 5A09457 Assistance with Respiratory Ventilation, 24-96 Consecutive Hours, Continuous Positive Airway Pressure (ICD-10-PCS; 2021-01-25)
PROC: 5A0935A Assistance with Respiratory Ventilation, Less than 24 Consecutive Hours, High Flow/Velocity Cannula (ICD-10-PCS; 2021-01-25)
PROC: 3E033XZ Introduction of Vasopressor into Peripheral Vein, Percutaneous Approach (ICD-10-PCS; principal; 2021-01-26)
DX: I13.0 Hypertensive heart and chronic kidney disease with heart failure and stage 1 through stage 4 chronic kidney disease, or unspecified chronic kidney disease (principal); I50.23 Acute on chronic systolic (congestive) heart failure; I21.A1 Myocardial infarction type 2; J96.21 Acute and chronic respiratory failure with hypoxia; I47.2 Ventricular tachycardia; I48.92 Unspecified atrial flutter; N17.9 Acute kidney failure, unspecified; N39.0 Urinary tract infection, site not specified; T83.83XA Hemorrhage due to genitourinary prosthetic devices, implants and grafts, initial encounter; L03.119 Cellulitis of unspecified part of limb; R53.1 Weakness; B95.2 Enterococcus as the cause of diseases classified elsewhere; B96.20 Unspecified Escherichia coli [E. coli] as the cause of diseases classified elsewhere; B96.5 Pseudomonas (aeruginosa) (mallei) (pseudomallei) as the cause of diseases classified elsewhere; N18.9 Chronic kidney disease, unspecified; E11.22 Type 2 diabetes mellitus with diabetic chronic kidney disease; E78.5 Hyperlipidemia, unspecified; E86.0 Dehydration; E87.6 Hypokalemia; I25.10 Atherosclerotic heart disease of native coronary artery without angina pectoris; I25.2 Old myocardial infarction; I25.5 Ischemic cardiomyopathy; Z20.822 Contact with and (suspected) exposure to COVID-19; I27.20 Pulmonary hypertension, unspecified; I45.10 Unspecified right bundle-branch block; I48.91 Unspecified atrial fibrillation; J44.9 Chronic obstructive pulmonary disease, unspecified; J84.10 Pulmonary fibrosis, unspecified; K29.70 Gastritis, unspecified, without bleeding; N40.0 Benign prostatic hyperplasia without lower urinary tract symptoms; T46.4X5A Adverse effect of angiotensin-converting-enzyme inhibitors, initial encounter; Z66 Do not resuscitate; Z79.51 Long term (current) use of inhaled steroids; Z79.82 Long term (current) use of aspirin; Z79.899 Other long term (current) drug therapy; Z82.49 Family history of ischemic heart disease and other diseases of the circulatory system; Z86.73 Personal history of transient ischemic attack (TIA), and cerebral infarction without residual deficits; Z86.79 Personal history of other diseases of the circulatory system; Z87.442 Personal history of urinary calculi; Z95.1 Presence of aortocoronary bypass graft; Z95.5 Presence of coronary angioplasty implant and graft; Z96.642 Presence of left artificial hip joint; R77.8 Other specified abnormalities of plasma proteins; I95.9 Hypotension, unspecified
CPT/HCPCS: 36415; 36600; 71045; 80048; 80053; 81001; 82607; 82805; 83605; 83615; 83735; 83880; 84100; 84443; 84484; 85025; 85610; 85730; 86140; 87077; 87086; 87186; 87635; 93005; 93306; 94640; 94660; 94760; 96365; 96366; 96367; 96368; 96375; 96376; 99291